=== PATIENT | female | born 1940 | race Caucasian/White ===

== ENCOUNTER → 2017-06-20 | Outpatient (CLI) | payer MEDICARE, OTHER ==
--- NOTE | 2017-06-20 13:22 | RADIOLOGY REPORT (SQ) ---
EXAM DESCRIPTION: VENOUS BILATERAL LOWER COMPLETED DATE/TIME: 06/20/2017 11:57 am REASON FOR STUDY: BLE PAIN, SWELLING R60.0 LOCALIZED EDEMA COMPARISON: None. TECHNIQUE: Dynamic and static snell scale and color images acquired of both lower extremity venous sy stems. Selected spectral images acquired with additional compression and augmentation maneuvers. Imag es stored on PACS. LIMITATIONS: None. FINDINGS: RIGHT LEG COMMON FEMORAL AND FEMORAL: Normal phasicity, compression and augmentation. No visualized echogenic m aterial on snell scale. No defects on color images. POPLITEAL: Normal compression and augmentation. No visualized echogenic material on snell scale. No de fects on color images. CALF VESSELS: Normal compression and augmentation. No visualized echogenic material on snell scale. No defects on color image. GSV AND SSV: Normal compression. No visualized echogenic material on snell scale. No defects on color images. ANY DEEP VENOUS INSUFFICIENCY: Not evaluated. ANY EVIDENCE OF POPLITEAL CYST: No. OTHER: No other significant finding. LEFT LEG COMMON FEMORAL AND FEMORAL: Normal phasicity, compression and augmentation. No visualized echogenic m aterial on snell scale. No defects on color images. POPLITEAL: Normal compression and augmentation. No visualized echogenic material on snell scale. No de fects on color images. CALF VESSELS: Normal compression and augmentation. No visualized echogenic material on snell scale. No defects on color images. GSV : Normal compression. No visualized echogenic material on snell scale. No defects on color images. LSV: The lesser saphenous vein in the left calf vein is noncompressible, with mixed echogenicity mat erial in the lumen from thrombus. There is mild edema in the left ankle soft tissues. ANY DEEP VENOUS INSUFFICIENCY: Not evaluated. ANY EVIDENCE POPLITEAL CYST: No. OTHER: No other significant finding. IMPRESSION: NO EVIDENCE DVT IN EITHER LEG. 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 Mild left ankle subcutaneous edema TECHNICAL DOCUMENTATION: JOB ID: [id number] [employer]- All Rights Reserved
== END ==
LOC: SP 11:09
PROVIDERS: ATTEND Family Medicine
DX: I82.812 Embolism and thrombosis of superficial veins of left lower extremity (principal)
CPT/HCPCS: 93970

== ENCOUNTER → 2017-08-05 | Outpatient (CLI) | payer MEDICARE, OTHER ==
--- NOTE | 2017-08-05 16:56 | RADIOLOGY REPORT (SQ) ---
EXAM DESCRIPTION: HAND LEFT 3 VIEWS COMPLETED DATE/TIME: 08/05/2017 4:45 pm REASON FOR STUDY: PAIN IN LEFT HAND M79.642 PAIN IN LEFT HAND COMPARISON: None. EXAM PARAMETERS: NUMBER OF VIEWS: Three views. TECHNIQUE: AP, lateral and oblique radiographic images acquired of the left hand. LIMITATIONS: None. FINDINGS: MINERALIZATION: Normal. BONES: No acute fracture or dislocation. No worrisome bone lesions. 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 SOFT TISSUES: Dorsal hand soft tissue swelling. No radiopaque foreign body or soft tissue gas. OTHER: No other significant finding. IMPRESSION: No acute fracture. TECHNICAL DOCUMENTATION: JOB ID: [id number] [employer]- All Rights Reserved
== END ==
LOC: OD 16:00
PROVIDERS: ATTEND Family Medicine
DX: M79.642 Pain in left hand (principal)

== ENCOUNTER 2017-08-30 15:40 | Emergency (ER) | payer MEDICARE, OTHER ==
[2017-08-30] MEDS ORDERED: ALBUTEROL SULFATE 0.083% NEB 2.5 MG/3 ML AMPUL NEB ONE (16:32)
[2017-08-30] MEDS ORDERED: METHYLPREDNISOLONE INJ 125 MG/2 ML SDV IM ONE (16:32)
[2017-08-30] MEDS ORDERED: IPRATROPIUM/ALBUTEROL 0.5-2.5 MG/3 ML AMPUL NEB ONE (16:32)
--- NOTE | 2017-08-30 16:40 | ER Document Report ---
ED Medical Screen (RME) - General Mode of Arrival: Wheelchair Information source: Patient TRAVEL OUTSIDE OF THE [place] IN LAST 30 DAYS: No <LONNY SMALL - Last Filed: 08/30/17 17:19> <LEELA JHA - Last Filed: 08/30/17 19:05> - General Chief Complaint: Shortness Of Breath Stated Complaint: DIFFICULTY BREATHING Time Seen by Provider: 08/30/17 16:25 Notes: Patient is a 76 year old male presenting to the emergency department complaining of a cough with yellow sputum and chest pain onset a week ago. Patient states that she has had some wheezing for 3 weeks. Patient denies fever. Patient currently takes Albuterol. (LONNY SMALL) - Related Data Allergies/Adverse Reactions: aspirin [Aspirin] Allergy (Verified 07/24/15 08:05) Penicillins Allergy (Verified 07/24/15 08:05) Hives Past Medical History - General Information source: Patient - Social History Chew tobacco use (# tins/day): No Frequency of alcohol use: None Drug Abuse: None - Past Medical History Cardiac Medical History: Reports: Hx Atrial Fibrillation Pulmonary Medical History: Reports: Hx Asthma Renal/ Medical History: Denies: Hx Peritoneal Dialysis <LONNY SMALL - Last Filed: 08/30/17 17:19> Review of Systems - Review of Systems Constitutional: No symptoms reported EENT: No symptoms reported Cardiovascular: See HPI, Chest pain Respiratory: See HPI, Cough, Sputum Gastrointestinal: No symptoms reported Genitourinary: No symptoms reported Female Genitourinary: No symptoms reported Musculoskeletal: No symptoms reported Skin: No symptoms reported Hematologic/Lymphatic: No symptoms reported Neurological/Psychological: No symptoms reported -: Yes All other systems reviewed and negative <LONNY SMALL - Last Filed: 08/30/17 17:19> Physical Exam - General General appearance: Appears well, Alert, Other - Patient forms 3-4 word sentences. - HEENT Head: Normocephalic, Atraumatic Pupils: PERRL - Respiratory Respiratory status: Other - Decreased air movements. Small amount of PEEP. Breath sounds: Wheezing - Expiratory - Cardiovascular Rhythm: Regular - Psychological Associated symptoms: Normal affect, Normal mood - Skin Skin Temperature: Warm Skin Moisture: Dry <LONNY SMALL - Last Filed: 08/30/17 17:19> - Respiratory Respiratory status: Other - Decreased air movements. Small amount of auto-PEEP <LEELA JHA - Last Filed: 08/30/17 19:05> - Vital signs Vitals: Temp Pulse Resp BP 98.3 F 81 18 140/53 H 08/30/17 15:48 08/30/17 15:48 08/30/17 15:48 08/30/17 15:48 Course - Laboratory Result Diagrams: 08/30/17 16:45 08/30/17 16:45 <LONNY SMALL - Last Filed: 08/30/17 17:19> - Laboratory Result Diagrams: 08/30/17 16:45 08/30/17 16:45 <LEELA JHA - Last Filed: 08/30/17 19:05> - Vital Signs Vital signs: Temp Pulse Resp BP Pulse Ox 98.3 F 81 18 140/53 H 100 08/30/17 15:48 08/30/17 15:48 08/30/17 15:48 08/30/17 15:48 08/30/17 18:19 - Laboratory Laboratory results interpreted by me: 08/30/17 08/30/17 16:45 16:45 Hgb 10.9 L Hct 33.3 L RDW 19.4 H Lymphocytes % (Manual) 3 L Monocytes % (Manual) 18 H Abs Lymphs (Manual) 0.4 L Abs Monocytes (Manual) 1.7 H Chloride 108 H Carbon Dioxide 21 L BUN 30 H Creatinine 1.39 H Est GFR ( Amer) 45 L Est GFR (Non-Af Amer) 37 L Glucose 249 H Creatine Kinase 157 H Total Protein 6.2 L Doctor's Discharge <LONNY SMALL - Last Filed: 08/30/17 17:19> <LEELA JHA - Last Filed: 08/30/17 19:05> - Discharge Referrals: GARY DAVID MD [Primary Care Provider] - Follow up as needed Scribe Documentation - Scribe Written by Scribe:: Belén Ennis, 08/30/2017 17:04 acting as scribe for :: Warren <LONNY SMALL - Last Filed: 08/30/17 17:19>
[2017-08-30 17:02] LABS: MEAN CORPUSCULAR HGB CONC 32.7 g/dL (32.0-36.0); WHITE BLOOD COUNT 9.6 10^3/uL (4.0-10.5)
[2017-08-30 17:09] LABS: HEMATOCRIT 33.3 % (36.0-47.0); HEMOGLOBIN 10.9 g/dL (12.0-15.5); HGB HCT DIFFERENCE -0.6; MEAN CORPUSCULAR HEMOGLOBIN 27.3 pg (27.0-33.4); MEAN CORPUSCULAR VOLUME 83 fl (80-97); RED BLOOD COUNT 3.99 10^6/uL (3.72-5.28); RED CELL DISTRIBUTION WIDTH 19.4 % (11.5-14.0)
[2017-08-30 17:15] LABS: ALANINE AMINOTRANSFERASE 29 U/L (9-52); ALBUMIN 3.9 g/dL (3.5-5.0); ALKALINE PHOSPHATASE 63 U/L (38-126); ANION GAP 15 (5-19); ASPARTATE AMINO TRANSFERASE 19 U/L (14-36); BILIRUBIN,DIRECT 0.3 mg/dL (0.0-0.4); BILIRUBIN,TOTAL 0.4 mg/dL (0.2-1.3); BLOOD UREA NITROGEN 30 mg/dL (7-20); CALCIUM 9.5 mg/dL (8.4-10.2); CARBON DIOXIDE 21 mmol/L (22-30); CHLORIDE 108 mmol/L (98-107); CREATINE KINASE 157 U/L (30-135); CREATININE RESULT 1.39 mg/dL (0.52-1.25); GLUCOSE 249 mg/dL (75-110); POTASSIUM 4.5 mmol/L (3.6-5.0); SODIUM 144.3 mmol/L (137-145); TOTAL PROTEIN 6.2 g/dL (6.3-8.2)
[2017-08-30 17:27] LABS: CREATINE KINASE MB 4.01 ng/mL (<4.55); TROPONIN I 0.022 ng/mL
[2017-08-30 17:33] LABS: BAND NEUTROPHILS % (MANUAL) 3 % (3-5); BASOPHILS % (MANUAL) 0 % (0-2); EOSINOPHILS % (MANUAL) 0 % (0-6); LYMPHOCYTES % (MANUAL) 3 % (13-45); TOTAL CELLS COUNTED 100
[2017-08-30 17:36] LABS: ANISOCYTOSIS 2+; OVALOCYTES 1+; POIKILOCYTOSIS 1+; POLYCHROMASIA SLIGHT; SCHISTOCYTES SLIGHT; TEAR DROP CELLS SLIGHT; TOXIC VACUOLATION PRESENT
--- NOTE | 2017-08-30 17:39 | RADIOLOGY REPORT (SQ) ---
EXAM DESCRIPTION: CHEST SINGLE VIEW COMPLETED DATE/TIME: 08/30/2017 5:03 pm REASON FOR STUDY: cough, wheeze, SOB COMPARISON: 07/24/2015 EXAM PARAMETERS: NUMBER OF VIEWS: One view. TECHNIQUE: Single frontal radiographic view of the chest acquired. RADIATION DOSE: NA LIMITATIONS: None. FINDINGS: LUNGS AND PLEURA: No opacities, masses or pneumothorax. No pleural effusion. MEDIASTINUM AND HILAR STRUCTURES: Hiatal hernia. HEART AND VASCULAR STRUCTURES: Heart normal in size. Normal vasculature. BONES: No acute findings. HARDWARE: None in the chest. OTHER: No other significant finding. IMPRESSION: Hiatal hernia with no acute cardiopulmonary disease. TECHNICAL DOCUMENTATION: JOB ID: [id number] [employer]- All Rights Reserved
--- NOTE | 2017-08-30 19:07 | ER Document Report ---
ED General - General Chief Complaint: Shortness Of Breath Stated Complaint: DIFFICULTY BREATHING Time Seen by Provider: 08/30/17 16:25 Mode of Arrival: Wheelchair Notes: Patient is a 76-year-old female with a past medical history of asthma who presents with 2-3 days of progressively worsening shortness of breath. Patient states she has been using her albuterol nebulizer at home with minimal improvement of her symptoms. Nothing seems to worsen her symptoms other than going outside in the cold air or exerting herself. She states this feels very similar to her prior asthma exacerbations. She does take prednisone 20 mg daily secondary to history of temporal arteritis. She has required hospitalization in the past for asthma but has never required intubation. She denies any fever, constitutional symptoms or chest pain. She has not seen a primary care doctor regarding today's concerns. TRAVEL OUTSIDE OF THE [place] IN LAST 30 DAYS: No - Related Data Allergies/Adverse Reactions: aspirin [Aspirin] Allergy (Verified 07/24/15 08:05) Penicillins Allergy (Verified 07/24/15 08:05) Hives Past Medical History - General Information source: Patient - Social History Smoking Status: Former Smoker Chew tobacco use (# tins/day): No Frequency of alcohol use: None Drug Abuse: None Lives with: Family Family History: Reviewed & Not Pertinent Patient has suicidal ideation: No Patient has homicidal ideation: No - Past Medical History Cardiac Medical History: Reports: Hx Atrial Fibrillation Pulmonary Medical History: Reports: Hx Asthma Renal/ Medical History: Denies: Hx Peritoneal Dialysis Review of Systems - Review of Systems Notes: Constitutional: Negative for fever. HENT: Negative for sore throat. Eyes: Negative for visual changes. Cardiovascular: Negative for chest pain. Respiratory: Positive for shortness of breath. Gastrointestinal: Negative for abdominal pain, vomiting or diarrhea. Genitourinary: Negative for dysuria. Musculoskeletal: Negative for back pain. Skin: Negative for rash. Neurological: Negative for headaches, weakness or numbness. 10 point ROS negative except as marked above and in HPI. Physical Exam - Vital signs Vitals: Temp Pulse Resp BP 98.3 F 81 18 140/53 H 08/30/17 15:48 08/30/17 15:48 08/30/17 15:48 08/30/17 15:48 Interpretation: Normal Notes: PHYSICAL EXAMINATION: GENERAL: Well-appearing, well-nourished and in no acute distress. HEAD: Atraumatic, normocephalic. EYES: Pupils equal round and reactive to light, extraocular movements intact, sclera anicteric, conjunctiva are normal. ENT: nares patent, oropharynx clear without exudates. Moist mucous membranes. NECK: Normal range of motion, supple without lymphadenopathy LUNGS: Breath sounds clear to auscultation bilaterally and equal. Mild end expiratory wheezing in all lung pereyra HEART: Regular rate and rhythm without murmurs ABDOMEN: Soft, nontender, normoactive bowel sounds. No guarding, no rebound. No masses appreciated. EXTREMITIES: Normal range of motion, no pitting or edema. No cyanosis. NEUROLOGICAL: No focal neurological deficits. Moves all extremities spontaneously and on command. PSYCH: Normal mood, normal affect. SKIN: Warm, Dry, normal turgor, no rashes or lesions noted. Course - Re-evaluation Re-evalutation: 08/30/17 19:04 Patient presents with a mild exacerbation of their baseline asthma. Mild wheezing at time of presentation but vitals do not show significant hypoxemia or tachypnea. No retractions. Patient did clinically improve after receiving nebulizers here in the emergency department. Chest x-ray without evidence of an acute pneumonia. Patient able to ambulate without any respiratory distress. Based on patient's overall reassuring assessment, I believe they are stable for outpatient management with steroids. Will also start patient on cetirizine and Qvar. I do not suspect an acute alternative pathology at this time based on history and exam including acute pulmonary embolus, ACS, pneumothorax, or aortic dissection. At this time will discharge with return precautions and follow-up recommendations. Verbal discharge instructions given a the bedside and opportunity for questions given. Medication warnings reviewed. Patient is in agreement with this plan and has verbalized understanding of return precautions and the need for primary care follow-up in the next 24-72 hours. - Vital Signs Vital signs: Temp Pulse Resp BP Pulse Ox 98.3 F 81 10 L 148/52 H 99 08/30/17 15:48 08/30/17 15:48 08/30/17 19:01 08/30/17 19:00 08/30/17 19:01 - Laboratory Result Diagrams: 08/30/17 16:45 08/30/17 16:45 Laboratory results interpreted by me: 08/30/17 08/30/17 16:45 16:45 Hgb 10.9 L Hct 33.3 L RDW 19.4 H Lymphocytes % (Manual) 3 L Monocytes % (Manual) 18 H Abs Lymphs (Manual) 0.4 L Abs Monocytes (Manual) 1.7 H Chloride 108 H Carbon Dioxide 21 L BUN 30 H Creatinine 1.39 H Est GFR ( Amer) 45 L Est GFR (Non-Af Amer) 37 L Glucose 249 H Creatine Kinase 157 H Total Protein 6.2 L - Diagnostic Test Radiology reviewed: Image reviewed, Reports reviewed Radiology results interpreted by me: 08/30/17 19:07 Chest x-ray: No acute infiltrate or pneumothorax - EKG Interpretation by Me Additional EKG results interpreted by me: 08/30/17 19:07 Normal sinus rhythm. Rate 70. No ST elevations or depressions. QTC is 419. Discharge - Discharge Clinical Impression: Asthma exacerbation Qualifiers: Asthma severity: moderate Asthma persistence: persistent Qualified Code(s): J45.41 - Moderate persistent asthma with (acute) exacerbation Condition: Good Disposition: HOME, SELF-CARE Additional Instructions: You were seen for an asthma exacerbation. Your symptoms improved with treatment here in the emergency department. However, it is very important that you return to the emergency department immediately if you began to have worsening difficulty breathing that does not respond to your normal home nebulizers. You are also being sent home on a five-day course of steroids that you should start taking tomorrow. Please also begin taking cetirizine 10 mg nightly as well as Qvar which was prescribed daily. Please also follow closely with your primary care physician. you should also return to emergency department if you develop fever greater than 101, persistent cough, persistent vomiting, pass out, or any other symptoms that are concerning to you. Prescriptions: Beclomethasone Dipropionate [Qvar] 8.7 gm IH DAILY #1 aer.w.adap Prednisone [Deltasone 20 mg Tablet] 2 tab PO DAILY 5 Days tablet Referrals: GARY DAVID MD [Primary Care Provider] - Follow up as needed DANY IYER MD [ACTIVE STAFF] - Follow up in 1 week
[2017-08-30 19:21] VITALS: BP 148/52
--- NOTE | 2017-08-30 22:42 | EKG REPORT ---
SEVERITY:- NORMAL ECG - SINUS RHYTHM : Confirmed by: Juan Todd 30-Aug-2017 22:41:41
== END 2017-08-30 19:26 | disposition home or self-care (01) ==
LOC: ER 15:40
DX: J45.41 Moderate persistent asthma with (acute) exacerbation (principal); R06.02 Shortness of breath; Z79.899 Other long term (current) drug therapy; Z87.891 Personal history of nicotine dependence
CPT/HCPCS: 93005; 94640 ×2; 99285; 96372; 36415; 82553; 82550; 85025; 80053; 84484; 83880; 71010; 93010; J2930; A9270 ×2; J7620

== ENCOUNTER → 2017-11-11 | Outpatient (CLI) | payer MEDICARE, OTHER ==
--- NOTE | 2017-11-11 16:15 | RADIOLOGY REPORT (SQ) ---
EXAM DESCRIPTION: U/S RETROPERITON (RENAL/AORTA) COMPLETED DATE/TIME: 11/11/2017 3:04 pm REASON FOR STUDY: ABN RESULTS OF KIDNEY FUNCTION TEST R94.4 ABNORMAL RESULTS OF KIDNEY FUNCTION DENEEN DIES COMPARISON: None. TECHNIQUE: Dynamic and static grayscale images acquired of the kidneys and bladder and recorded on P ACS. Additional selected color Doppler and spectral images recorded. LIMITATIONS: None. FINDINGS: RIGHT KIDNEY: 9.5 cm 9 mm cyst. No solid or suspicious masses. No hydronephrosis. No calcifications. LEFT KIDNEY: 9.4 cm. Cortical thinning. No solid or suspicious masses. No hydronephrosis. No calcifications. BLADDER: No masses. OTHER FINDINGS: No other significant finding. IMPRESSION: Chronic medical renal disease. No hydronephrosis. TECHNICAL DOCUMENTATION: JOB ID: [id number] [employer]- All Rights Reserved
== END ==
LOC: RAD 14:09
PROVIDERS: ATTEND Physician Assistant
DX: R94.4 Abnormal results of kidney function studies (principal); N28.9 Disorder of kidney and ureter, unspecified
CPT/HCPCS: 76770

== ENCOUNTER → 2017-11-13 | Outpatient (CLI) | payer MEDICARE, OTHER ==
[2017-11-13 12:28] LABS: HEMATOCRIT 29.4 % (36.0-47.0); HEMOGLOBIN 9.6 g/dL (12.0-15.5); MEAN CORPUSCULAR HEMOGLOBIN 28.3 pg (27.0-33.4); MEAN CORPUSCULAR HGB CONC 32.8 g/dL (32.0-36.0); MEAN CORPUSCULAR VOLUME 87 fl (80-97); PLATELET COUNT 223 10^3/uL (150-450); RED CELL DISTRIBUTION WIDTH 19.2 % (11.5-14.0); WHITE BLOOD COUNT 8.3 10^3/uL (4.0-10.5)
[2017-11-13 13:23] LABS: ABSOLUTE MONOCYTES # (MANUAL) 0.2 10^3/uL (0.1-1.4); ABSOLUTE NEUTROPHILS# (MANUAL) 7.1 10^3/uL (1.7-8.2); BAND NEUTROPHILS % (MANUAL) 2 % (3-5); BASOPHILS % (MANUAL) 0 % (0-2); EOSINOPHILS % (MANUAL) 1 % (0-6); HYPOCHROMASIA 2+; LYMPHOCYTES % (MANUAL) 12 % (13-45); METAMYELOCYTES % (MANUAL) 3 % (0); MONOCYTES % (MANUAL) 2 % (3-13); MYELOCYTES % (MANUAL) 1 % (0); POLYCHROMASIA 1+; SEGMENTED NEUTROPHILS % (MAN) 79 % (42-78); TOTAL CELLS COUNTED 100
[2017-11-13 13:24] LABS: ANISOCYTOSIS 2+; OVALOCYTES 2+; PLATELET COMMENT ADEQUATE; POIKILOCYTOSIS 2+; TEAR DROP CELLS SLIGHT; TOXIC GRANULATION SLIGHT
[2017-11-14 12:53] LABS: PATH REVIEW PATHOLOGIST REVIEWED
[2017-11-14 16:39] LABS: CYTOPLASMIC (C-ANCA) <1:20 titer (Neg:<1:20)
[2017-11-15 09:39] LABS: ANTICHROMATIN AB <0.2 AI (0.0-0.9); CENTROMERE B AB <0.2 AI (0.0-0.9); JO-1 ANTIBODY (ANACOMP) <0.2 AI (0.0-0.9); RNP AB <0.2 AI (0.0-0.9); SCLERODERMA-70 ANTIBODIES <0.2 AI (0.0-0.9); SJOGREN'S ANTI-SS-B AB <0.2 AI (0.0-0.9); SJOGREN'S SS-A ANTIBODY <0.2 AI (0.0-0.9); SMITH AB ANA <0.2 AI (0.0-0.9)
[2017-11-15 12:06] LABS: ATYPICAL PANCA <1:20 titer (Neg:<1:20); PERINUCLEAR (P-ANCA) <1:20 titer (Neg:<1:20)
[2017-11-15 12:07] LABS: DNA DOUBLE STRAND ANTIBODY ANA <1 IU/mL (0-9)
[2017-11-16 19:37] LABS: ASPERGILLUS FLAVUS Negative (Neg:<1:1); ASPERGILLUS FUMIGATUS Negative (Neg:<1:1)
[2017-11-17 10:45] LABS: ASPERGILLUS NIGER Negative (Neg:<1:1)
[2017-11-18 01:36] LABS: M001-IGE PENICILLIUM CHRYSOGEN <0.10 kU/L (Class 0); M002-IGE CLADOSPORIUM HERBARUM <0.10 kU/L (Class 0); M003-IGE ASPERGILLUS FUMIGATUS <0.10 kU/L (Class 0); M004-IGE MUCOR RACEMOSUS <0.10 kU/L (Class 0); M005-IGE CANDIDA ALBICANS <0.10 kU/L (Class 0); M006-IGE ALTERNARIA ALTERNATA <0.10 kU/L (Class 0); M009-IGE FUSARIUM PROLIFERATUM <0.10 kU/L (Class 0); M010-IGE STEMPHYLIUM HERBARUM <0.10 kU/L (Class 0); M012-IGE AUREOBASIDI PULLULANS <0.10 kU/L (Class 0); M013-IGE PHOMA BETAE <0.10 kU/L (Class 0); M014-IGE EPICOCCUM PURPURASCEN <0.10 kU/L (Class 0)
[2017-11-18 07:11] LABS: IMMUNOGLOBULIN E 5 IU/mL (0-100)
== END ==
LOC: OD 10:41
PROVIDERS: ATTEND Physician Assistant
DX: R06.00 Dyspnea, unspecified (principal)
CPT/HCPCS: 36415; 82785; 85025; 86003; 86021; 86225; 86235; 86430; 86606

== ENCOUNTER → 2017-11-22 | Outpatient (CLI) | payer MEDICARE, OTHER ==
--- NOTE | 2017-11-22 16:53 | RADIOLOGY REPORT (SQ) ---
EXAM DESCRIPTION: CT CHEST WITHOUT COMPLETED DATE/TIME: 11/22/2017 3:57 pm REASON FOR STUDY: DYSPNEA R06.00 DYSPNEA, UNSPECIFIED COMPARISON: CT angio chest 07/24/2015 TECHNIQUE: CT scan performed of the chest without intravenous contrast. Images reviewed with lung, soft tissue and bone windows. Reconstructed coronal and sagittal MPR images reviewed. All images st ored on PACS. All CT scanners at this facility use dose modulation, iterative reconstruction, and/or weight based d osing when appropriate to reduce radiation dose to as low as reasonably achievable (ALARA). [facility]: Dose Right [facility]: CareDose [facility]: Dose Right [facility]: Teradose 4D [facility]: Smart [employer] RADIATION DOSE: CT Rad equipment meets quality standard of care and radiation dose reduction techniq ues were employed. CTDIvol: 10.5 mGy. DLP: 350 mGy-cm. mGy. LIMITATIONS: No technical limitations. FINDINGS: LUNGS AND PLEURA: There is chronic appearing volume loss consolidation and bronchiectasis in the right lower lobe on axial images 55-69. Along the superior margin of this bandlike consolidat ion and bronchiectasis, a more nodular appearing area is present, 2 cm in diameter on coronal image 6 8 and axial image 55. This could represent round atelectasis. Right lung nodule could not entirely be excluded. Consider PET-CT for further evaluation these findings. Remainder of the lungs are well inflated and clear. No pleural effusions. No pneumothorax. HILAR AND MEDIASTINAL STRUCTURES: No identified masses or abnormal nodes. No obvious aneurysm. Larg e retrocardiac hiatal hernia containing the stomach fundus HEART AND VASCULAR STRUCTURES: Heavily calcified mitral annulus. Calcified aortic valve. UPPER ABDOMEN: Stable 1.8 cm cysts along the ventral aspect of the pancreatic body. THYROID AND OTHER SOFT TISSUES: No masses. No adenopathy. BONES: Diffuse thoracic multilevel degenerative disc changes with T6 50% compression deformity bony s clerosis, chronic in appearance. HARDWARE: None in the chest. OTHER: No other significant findings. IMPRESSION: Chronic appearing bandlike volume loss and bronchiectasis in the right lower lobe. Eitan g the superior margin of this bandlike scarring, a more nodular appearing 2 cm area is present which could be round atelectasis or primary lung nodule. Outpatient follow-up PET-CT recommended for community health er evaluation TECHNICAL DOCUMENTATION: JOB ID: [id number] Quality ID # [id number]: Final reports with documentation of one or more dose reduction techniques (e.g., Au tomated exposure control, adjustment of the mA and/or kV according to patient size, use of iterative reconstruction technique) 2010 [employer]- All Rights Reserved
== END ==
LOC: RAD 15:26
PROVIDERS: ATTEND Physician Assistant
DX: R06.00 Dyspnea, unspecified (principal)
CPT/HCPCS: 71250

== ENCOUNTER 2017-11-25 15:39 | Emergency (ER) | payer MEDICARE, OTHER ==
[2017-11-25] MEDS ORDERED: IPRATROPIUM/ALBUTEROL 0.5-2.5 MG/3 ML AMPUL NEB ONE ×3 (15:44→16:07)
[2017-11-25] MEDS ORDERED: METHYLPREDNISOLONE INJ 125 MG/2 ML SDV IV ONE (16:07)
[2017-11-25] MEDS ORDERED: MAGNESIUM SULFATE/D5W 1 GM/100 ML RTUPB IV SCH (16:15)
--- NOTE | 2017-11-25 16:16 | ER Document Report ---
ED Respiratory Problem - General Chief Complaint: Breathing Difficulty Stated Complaint: BREATHING PROBLEMS Time Seen by Provider: 11/25/17 15:45 Notes: The patient is a 77-year-old female, past medical history asthma, presents with 1 day of worsening wheezing and shortness of breath. Earlier today, she tried using her albuterol inhaler without much relief of her symptoms. Patient is on daily 20 mg of prednisone for temporal arteritis. Patient denies chest pain, leg swelling, hemoptysis, back pain, fevers or headache. TRAVEL OUTSIDE OF THE [place] IN LAST 30 DAYS: No - Related Data Allergies/Adverse Reactions: aspirin [Aspirin] Allergy (Verified 11/25/17 15:43) Penicillins Allergy (Verified 11/25/17 15:43) Hives Past Medical History - General Information source: Patient, Relative - Social History Smoking Status: Unknown if Ever Smoked Family History: Reviewed & Not Pertinent - Past Medical History Cardiac Medical History: Reports: Hx Atrial Fibrillation Pulmonary Medical History: Reports: Hx Asthma Renal/ Medical History: Denies: Hx Peritoneal Dialysis Review of Systems - Review of Systems Notes: REVIEW OF SYSTEMS: CONSTITUTIONAL: -fevers, -chills EENT: -eye pain, -difficulty swallowing, -nasal congestion CARDIOVASCULAR: -chest pain, -syncope. RESPIRATORY: +cough, +SOB GASTROINTESTINAL: -abdominal pain, -nausea, -vomiting, -diarrhea GENITOURINARY: -dysuria, -hematuria MUSCULOSKELETAL: -back pain, -neck pain SKIN: -rash or skin lesions. HEMATOLOGIC: -easy bruising or bleeding. LYMPHATIC: -swollen, enlarged glands. NEUROLOGICAL: -altered mental status or loss of consciousness, -headache, - neurologic symptoms PSYCHIATRIC: -anxiety, -depression. ALL OTHER SYSTEMS REVIEWED AND NEGATIVE. Physical Exam - Vital signs Vitals: Temp Pulse BP Pulse Ox 98.5 F 107 H 185/73 H 98 11/25/17 15:41 11/25/17 15:41 11/25/17 15:41 11/25/17 15:41 - Notes Notes: PHYSICAL EXAMINATION: GENERAL: Well-appearing, well-nourished and in no acute distress. HEAD: Atraumatic, normocephalic. EYES: Pupils equal round and reactive to light, extraocular movements intact, sclera anicteric, conjunctiva are normal. ENT: nares patent, oropharynx clear without exudates. Moist mucous membranes. NECK: Normal range of motion, supple without lymphadenopathy LUNGS: Tachypneic, diffuse wheezing HEART: Regular rate and rhythm without murmurs ABDOMEN: Soft, nontender, normoactive bowel sounds. No guarding, no rebound. No masses appreciated. EXTREMITIES: Normal range of motion, no pitting or edema. No cyanosis. NEUROLOGICAL: Cranial nerves grossly intact. Normal speech, normal gait. Normal sensory and motor exams. PSYCH: Normal mood, normal affect. SKIN: Warm, Dry, normal turgor, no rashes or lesions noted. Course - Re-evaluation Re-evalutation: Patient seen immediately on arrival. Given duonebs, steroids, magnesium and placed on BiPAP. Patient's x-ray and labs are unremarkable and did not show any evidence of pneumonia. After 3 duonebs, steroids and magnesium, her wheezing completely resolved and she feels much better. She is in no respiratory distress. Patient was transitioned off BiPAP and she did very well. No hypoxia and wheezing continued to be resolved. Offered patient admission, but she feels much better and would like to go home. She has Xopenex to take at home. 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 Given very strict return precautions and she understands. - Vital Signs Vital signs: Temp Pulse Resp BP Pulse Ox 98.5 F 107 H 10 L 144/66 H 98 11/25/17 15:41 11/25/17 15:41 11/25/17 18:01 11/25/17 18:01 11/25/17 18:01 - Laboratory Result Diagrams: 11/25/17 16:30 11/25/17 16:30 Laboratory results interpreted by me: 11/25/17 11/25/17 16:30 16:30 RBC 3.26 L Hgb 9.2 L Hct 28.5 L RDW 18.2 H Metamyelocytes % 1 H Chloride 108 H BUN 49 H Creatinine 1.44 H Est GFR ( Amer) 43 L Est GFR (Non-Af Amer) 35 L Glucose 193 H - Diagnostic Test Radiology reviewed: Image reviewed, Reports reviewed Radiology results interpreted by me: CXR: NAD Discharge - Discharge Clinical Impression: Asthma exacerbation Qualifiers: Asthma severity: unspecified severity Asthma persistence: intermittent Qualified Code(s): J45.21 - Mild intermittent asthma with (acute) exacerbation Condition: Stable Disposition: HOME, SELF-CARE Additional Instructions: ASTHMA: You have been diagnosed as having asthma. This is a condition where there is episodic tightness in the bronchial tubes. Allergies, infections, and polluted or cold air may be contributing factors. Emergency treatment of a severe asthma attack may include adrenaline shots , or bronchodilator aerosol. You may feel lightheaded, have a decreased exercise tolerance and a rapid pulse for an hour or two. Rest and get plenty of fluids. Home treatment of asthma requires bronchodilator drugs. These can be administered by injection, inhalation, or by mouth. Antibiotics and corticosteroids may be required for some patients. You should avoid chemical fumes, dusts, pollens, and exercising in very cold or dry air. If you smoke, stop!! If you develop a fever, increased wheezing, chest pain, or severe shortness of breath, you should contact the doctor immediately. STEROID MEDICATION: You have been given an injection of or oral medicine of the cortisone/ steroid class. This medication is used to control inflammation or allergy. Singh t is usually only given for a short period of time, until the acute process subsides. There are usually no side effects from short-term use of cortisone-like medications. Some persons feel an increased sense of well-being and are not sleepy at bedtime. Long-term use of cortisone medications is best avoided, unless required for a severe condition. If your condition does not remit, or relapses after the course of corticosteroid medication, you should consult your physician. INHALED BRONCHODILATORS: You have received treatment(s) of and/or prescription for an inhaled bronchodilator -- a medication which stimulates the airways in the lung to dilate. This improves the flow of air in asthma, bronchitis, and emphysema. These medicines have some similarity to adrenaline, and can cause similar side effects: shakiness, racing heart, and a sense of nervousness. These side effects decrease with time. Contact your doctor if these side effects are severe. Do not over-use the medicine. Too-frequent use of the inhaler may make it ineffective. Call your doctor if the inhaler is not controlling your symptoms at the prescribed doses. SMOKING: If you smoke, you should stop smoking. The tar and chemicals in cigarette smoke are harmful. Smoking has been shown to cause: emphysema chronic bronchitis lung cancer mouth and throat cancer stomach and pancreas cancer premature aging defects In addition, smoking increases ear and lung infections in children of smokers. USE OF ACETAMINOPHEN: Acetaminophen may be taken for pain relief or fever control. It's much safer than aspirin, offering a wider range of "safe" dosages. It is safe during . Some brand names are Tylenol, Panadol, Datril, Anacin 3, Tempra, and Liquiprin. Acetaminophen can be repeated every four hours. The following are maximum recommended dosages: USE OF ACETAMINOPHEN (Tylenol): Acetaminophen may be taken for pain relief or fever control. It's much safer than aspirin, offering a wider range of "safe" dosages. It is safe during . Some brand names are Tylenol, Panadol, Datril, Anacin 3, Tempra, and Liquiprin. Acetaminophen can be repeated every four hours. The following are maximum recommended dosages: WEIGHT Dose Drops Elixir Chewable( 80mg) (LBS.) drprs=droppers tsp=teaspoon 6 40 mg 0.4 ml (1/2) 6-11 80 mg 0.8 ml (full) tsp 1 tab 12-16 120 mg 1 1/2 drprs 3/4 tsp 1 1/2 tabs 17-23 160 mg 2 drprs 1 tsp 2 tabs 24-30 240 mg 3 drprs 1 1/2 tsp 3 tabs 30-35 320 mg 2 tsp 4 tabs 36-41 360 mg 2 1/4 tsp 4 1/2 tabs 42-47 400 mg 2 1/2 tsp 5 tabs 48-53 480 mg 3 tsp 6 tabs 54-59 520 mg 3 1/4 tsp 6 1/2 tabs 60-64 560 mg 3 1/2 tsp 7 tabs 65-70 600 mg 3 3/4 tsp 7 1/2 tabs 71-76 640 mg 4 tsp 8 tabs 77-82 720 mg 4 1/2 tsp 9 tabs 83-88 800 mg 5 tsp 10 tabs >89 pounds or adults 650 mg to 900 mg Acetaminophen can be repeated every four hours. Maximum dose not to exceed 4000 mg a day. These maximum recommended dosages are slightly higher than the dosages written on the product container, but these dosages are very safe and below the toxic dosage for acetaminophen. FOLLOW-UP CARE: If you have been referred to a physician for follow-up care, call the physician s office for an appointment as you were instructed or within the next two days. If you experience worsening or a significant change in your symptoms, notify the physician immediately or return to the Emergency Department at any time for re-evaluation. Prescriptions: Prednisone [Deltasone 10 mg Tablet] 10 mg PO ASDIR PRN #21 tablet PRN Reason: Forms: Elevated Blood Pressure Referrals: KEILY CHRISTIANSON MD [Primary Care Provider] - Follow up as needed DANY IYER MD [ACTIVE STAFF] - Follow up as needed
[2017-11-25 16:51] LABS: HEMATOCRIT 28.5 % (36.0-47.0); HEMOGLOBIN 9.2 g/dL (12.0-15.5); MEAN CORPUSCULAR HEMOGLOBIN 28.2 pg (27.0-33.4); MEAN CORPUSCULAR HGB CONC 32.3 g/dL (32.0-36.0); MEAN CORPUSCULAR VOLUME 88 fl (80-97); PLATELET COUNT 215 10^3/uL (150-450); RED BLOOD COUNT 3.26 10^6/uL (3.72-5.28); RED CELL DISTRIBUTION WIDTH 18.2 % (11.5-14.0); WHITE BLOOD COUNT 8.2 10^3/uL (4.0-10.5)
[2017-11-25 17:03] LABS: ALANINE AMINOTRANSFERASE 29 U/L (9-52); ALBUMIN 3.9 g/dL (3.5-5.0); ALKALINE PHOSPHATASE 44 U/L (38-126); ANION GAP 11 (5-19); ASPARTATE AMINO TRANSFERASE 27 U/L (14-36); BILIRUBIN,DIRECT 0.3 mg/dL (0.0-0.4); BILIRUBIN,TOTAL 0.3 mg/dL (0.2-1.3); BLOOD UREA NITROGEN 49 mg/dL (7-20); CALCIUM 9.5 mg/dL (8.4-10.2); CARBON DIOXIDE 22 mmol/L (22-30); CHLORIDE 108 mmol/L (98-107); GLUCOSE 193 mg/dL (75-110); POTASSIUM 4.5 mmol/L (3.6-5.0); SODIUM 141.3 mmol/L (137-145); TOTAL PROTEIN 6.3 g/dL (6.3-8.2)
--- NOTE | 2017-11-25 17:08 | RADIOLOGY REPORT (SQ) ---
EXAM DESCRIPTION: CHEST SINGLE VIEW portable COMPLETED DATE/TIME: 11/25/2017 4:51 pm REASON FOR STUDY: sob COMPARISON: CT chest 11/22/2017 and chest x-ray 08/30/2017 the EXAM PARAMETERS: NUMBER OF VIEWS: One view. TECHNIQUE: Single frontal radiographic view of the chest acquired. Portable technique RADIATION DOSE: NA LIMITATIONS: Shallow inspiration FINDINGS: LUNGS AND PLEURA: Lungs appear generally clear, detail limited by shallow inspiration. Th e bronchiectatic and nodular change right lung base seen on recent CT not visualized on today's limit ed film. MEDIASTINUM AND HILAR STRUCTURES: Hiatus hernia HEART AND VASCULAR STRUCTURES: Heart accentuated by technique. No overt CHF. BONES: No acute findings. HARDWARE: None in the chest. OTHER: No other significant finding. IMPRESSION: Limited filming. Nothing acute. Stable hiatus hernia. COMMENT: See prior CT chest 11/22/2017 TECHNICAL DOCUMENTATION: JOB ID: [id number] [employer]- All Rights Reserved
[2017-11-25 17:15] LABS: TROPONIN I 0.014 ng/mL
[2017-11-25 17:27] LABS: ABSOLUTE LYMPHOCYTES# (MANUAL) 2.6 10^3/uL (0.5-4.7); ABSOLUTE MONOCYTES # (MANUAL) 0.2 10^3/uL (0.1-1.4); ABSOLUTE NEUTROPHILS# (MANUAL) 5.3 10^3/uL (1.7-8.2); ANISOCYTOSIS 1+; BASOPHILS % (MANUAL) 0 % (0-2); EOSINOPHILS % (MANUAL) 0 % (0-6); LYMPHOCYTES % (MANUAL) 32 % (13-45); METAMYELOCYTES % (MANUAL) 1 % (0); MONOCYTES % (MANUAL) 3 % (3-13); PLATELET CLUMPS PRESENT; PLATELET COMMENT ADEQUATE; PLATELET GIANT PRESENT; PLATELET LARGE PRESENT; SEGMENTED NEUTROPHILS % (MAN) 64 % (42-78); TOTAL CELLS COUNTED 100
[2017-11-25 18:55] VITALS: BP 144/66
--- NOTE | 2017-11-26 09:26 | EKG REPORT ---
SEVERITY:- BORDERLINE ECG - SINUS RHYTHM PROBABLE LEFT ATRIAL ABNORMALITY : Confirmed by: Juan Todd 26-Nov-2017 09:26:31
== END 2017-11-25 18:55 | disposition home or self-care (01) ==
LOC: ER 15:39
DX: J45.21 Mild intermittent asthma with (acute) exacerbation (principal); R06.02 Shortness of breath; Z79.899 Other long term (current) drug therapy
CPT/HCPCS: 93005; 94640 ×2; 99285; 96374; 36415; 85025; 80053; 84484; 83880; 71045; 93010; 94660; J2930; J3475; A9270; J7620

== ENCOUNTER 2017-11-28 12:56 | Inpatient (IN) | payer MEDICARE, OTHER ==
[2017-11-28] MEDS ORDERED: MAGNESIUM SULFATE/D5W 1 GM/100 ML RTUPB IV ONE (13:09)
[2017-11-28] MEDS ORDERED: IPRATROPIUM/ALBUTEROL 0.5-2.5 MG/3 ML AMPUL NEB ONE ×2 (13:09)
[2017-11-28] MEDS ORDERED: NORMAL SALINE 1000 ML 1,000 ML IV ONE (13:09)
[2017-11-28] MEDS ORDERED: METHYLPREDNISOLONE INJ 125 MG/2 ML SDV IV ONE (13:09)
[2017-11-28] MEDS ORDERED: DIPHENHYDRAMINE HCL 50 MG/ML VIAL IV ONE (13:27)
[2017-11-28] MEDS ORDERED: FAMOTIDINE INJ/PF 20 MG/2 ML SDV IV ONE (13:27)
[2017-11-28] MEDS ORDERED: ALBUTEROL SULFATE 0.083% NEB 2.5 MG/3 ML AMPUL NEB ONE (13:31)
--- NOTE | 2017-11-28 13:57 | RADIOLOGY REPORT (SQ) ---
Exam Description CHEST SINGLE VIEW Completed Date/time 11/28/2017 1:49 PM Reason For Study sob Comparison [id number]. Exam Parameters Number of views: One view TECHNIQUE: Digital Frontal radiographic views of the chest acquired. Limitations: (None). Findings LUNGS AND PLEURA: . New opacity at the right base. Left lung is clear. MEDIASTINUM AND HILAR STRUCTURES: No masses or contour abnormalities. HEART AND VASCULAR STRUCTURES: Heart size is normal. No evidence for failure. (Normal appearing aorta for age.) . BONES: No acute findings. HARDWARE: None. Impression Right lower lobe pneumonia. Technical Documentation 2010 [employer]- All Rights Reserved
[2017-11-28] MEDS ORDERED: DILTIAZEM HCL INJ 25 MG/5 ML VIAL IV ONE ×2 (14:13→14:40)
[2017-11-28] MEDS ORDERED: DILTIAZEM HCL INJ 25 MG/5 ML VIAL ONE (14:13)
[2017-11-28] MEDS ORDERED: DILTIAZEM HCL/D5W 125 MG/125 ML RTUINJ IV ONE ×2 (14:14→22:34)
[2017-11-28] MEDS: DILTIAZEM HCL/D5W 125 MG/125 ML RTUINJ IV PRN ×2 (14:15→22:58)
[2017-11-28 14:24] LABS: HEMATOCRIT 31.5 % (36.0-47.0); HEMOGLOBIN 10.3 g/dL (12.0-15.5); MEAN CORPUSCULAR HEMOGLOBIN 28.2 pg (27.0-33.4); MEAN CORPUSCULAR HGB CONC 32.8 g/dL (32.0-36.0); MEAN CORPUSCULAR VOLUME 86 fl (80-97); PLATELET COUNT 271 10^3/uL (150-450); RED BLOOD COUNT 3.66 10^6/uL (3.72-5.28); RED CELL DISTRIBUTION WIDTH 17.4 % (11.5-14.0)
[2017-11-28 14:27] LABS: INTERNATIONAL RATION (INR) 0.93; PROTHROMBIN TIME 13.1 SEC (11.4-15.4)
[2017-11-28 14:28] LABS: VENOUS BLOOD BASE EXCESS -0.4 mmol/L; VENOUS BLOOD HCO3 21.7 mmol/L (20-32); VENOUS BLOOD PCO2 27.7 mmHg (35-63); VENOUS BLOOD PH 7.51 (7.30-7.42)
[2017-11-28] MEDS ORDERED: LEVOFLOXACIN 500 MG/D5W RTU 500 MG/100 ML RTUPB IV ONE (14:29)
[2017-11-28 14:35] LABS: ALANINE AMINOTRANSFERASE 37 U/L (9-52); ALKALINE PHOSPHATASE 43 U/L (38-126); ANION GAP 14 (5-19); ASPARTATE AMINO TRANSFERASE 32 U/L (14-36); BILIRUBIN,DIRECT 0.5 mg/dL (0.0-0.4); BILIRUBIN,TOTAL 0.5 mg/dL (0.2-1.3); BLOOD UREA NITROGEN 61 mg/dL (7-20); CALCIUM 10.1 mg/dL (8.4-10.2); CARBON DIOXIDE 22 mmol/L (22-30); CHLORIDE 107 mmol/L (98-107); CREATINE KINASE 123 U/L (30-135); GLUCOSE 149 mg/dL (75-110); LIPASE 416.6 U/L (23-300); PHOSPHORUS 3.3 mg/dL (2.5-4.5); POTASSIUM 4.5 mmol/L (3.6-5.0); SODIUM 143.4 mmol/L (137-145); TOTAL PROTEIN 6.7 g/dL (6.3-8.2)
--- NOTE | 2017-11-28 14:38 | ER Document Report ---
ED General - General Chief Complaint: Respiratory Distress Stated Complaint: SHORTNESS OF BREATH Time Seen by Provider: 11/28/17 13:08 TRAVEL OUTSIDE OF THE [place] IN LAST 30 DAYS: No - HPI Patient complains to provider of: Respiratory distress Notes: Patient coming in today respiratory distress to his current part prior to arrival. Patient has a history of asthma and had a new inhaler patient states after taking the inhaler he started having difficulty breathing. Upon my evaluation no signs of hypoxia patient is definitely Looks to be struggling to breathe. States last few days cough with productive sputum no fevers no chills no nausea vomiting patient denies any chest pain abdominal pain at this time. - Related Data Allergies/Adverse Reactions: aspirin [Aspirin] Allergy (Verified 11/25/17 15:43) Penicillins Allergy (Verified 11/25/17 15:43) Hives Past Medical History - Social History Smoking Status: Never Smoker Frequency of alcohol use: None Drug Abuse: None Family History: Reviewed & Not Pertinent Patient has suicidal ideation: No Patient has homicidal ideation: No - Past Medical History Cardiac Medical History: Reports: Hx Atrial Fibrillation, Hx Hypercholesterolemia, Hx Hypertension Pulmonary Medical History: Reports: Hx Asthma, Hx Bronchitis, Hx Pneumonia Endocrine Medical History: Reports: Hx Diabetes Mellitus Type 2 Renal/ Medical History: Denies: Hx Peritoneal Dialysis GI Medical History: Reports: Hx Hiatal Hernia Past Surgical History: Reports: Hx Abdominal Surgery - colon resection, Hx Appendectomy Review of Systems - Review of Systems Constitutional: No symptoms reported EENT: No symptoms reported Cardiovascular: No symptoms reported Respiratory: Cough, Short of breath, Sputum, Wheezing Gastrointestinal: No symptoms reported Genitourinary: No symptoms reported Female Genitourinary: No symptoms reported Musculoskeletal: No symptoms reported Skin: No symptoms reported Hematologic/Lymphatic: No symptoms reported Neurological/Psychological: No symptoms reported -: Yes All other systems reviewed and negative Physical Exam - Vital signs Vitals: Temp Pulse Resp BP Pulse Ox 98.4 F 145 H 32 H 145/73 H 96 11/28/17 13:01 11/28/17 13:01 11/28/17 13:01 11/28/17 13:01 11/28/17 13:01 Interpretation: Normal - General General appearance: Appears well, Alert - HEENT Head: Normocephalic, Atraumatic, Other - Redness and swelling around the orbits. Eyes: Normal Conjunctiva: Other - Bilateral sub-conjunctiva hemorrhages Cornea: Normal Eyelashes: Normal Pupils: PERRL - Respiratory Respiratory status: Respiratory distress, Retractions, Tachypnea Chest status: Nontender Breath sounds: Rhonchi, Wheezing Chest palpation: Normal - Cardiovascular Rhythm: Regular Heart sounds: Normal auscultation Murmur: No - Abdominal Inspection: Normal Distension: No distension Bowel sounds: Normal Tenderness: Nontender Organomegaly: No organomegaly - Back Back: Normal, Nontender - Extremities General upper extremity: Normal inspection, Nontender, Normal color, Normal ROM , Normal temperature General lower extremity: Normal inspection, Nontender, Normal color, Normal ROM , Normal temperature, Normal weight bearing. No: Doyle's sign - Neurological Neuro grossly intact: Yes Cognition: Normal Orientation: AAOx4 [place] Coma Scale Eye Opening: Spontaneous [place] Coma Scale Verbal: Oriented [place] Coma Scale Motor: Obeys Commands [place] Coma Scale Total: 15 Speech: Normal Motor strength normal: LUE, RUE, LLE, RLE Sensory: Normal - Psychological Associated symptoms: Normal affect, Normal mood - Skin Skin Temperature: Warm Skin Moisture: Dry Skin Color: Normal Course - Re-evaluation Re-evalutation: 11/28/17 14:36 Patient chest x-ray shows right lower lobe pneumonia. Patient at the receiving breathing treatment stating feeling much better upon reevaluation notified by the nurse that her heart rate had increased to 150. Reexamined patient patient' s heart rate look to be SVT on the monitor bounce around between 150-170. Patient looks to be A. fib on the monitor. The review the patient's medical list patient is on [facility] states she has been compliant with this. I did order the patient a dose of Cardizem and Cardizem drip was states at this time to treat her underlying SVT A. fib. Patient feeling much better during the episodes of SVT or A. fib with RVR patient was complaining of significant shortness of breath. We will start the patient on Levaquin plan is to admit the patient for respiratory distress A. fib RVR. Because of the patient's initial complaints of shortness of breath after medication along with itching and Facial redness and swelling cannot rule out possibility of a allergic component. Will discuss this with PCP 11/28/17 14:52 - Vital Signs Vital signs: Temp Pulse Resp BP Pulse Ox 98.4 F 86 22 H 134/58 H 94 11/28/17 13:09 11/28/17 13:09 11/28/17 15:12 11/28/17 15:12 11/28/17 15:12 - Laboratory Result Diagrams: 11/28/17 13:15 11/28/17 13:15 Laboratory results interpreted by me: 11/28/17 11/28/17 11/28/17 13:15 13:15 13:15 RBC Hgb Hct RDW Seg Neuts % (Manual) Lymphocytes % (Manual) Monocytes % (Manual) Metamyelocytes % Myelocytes % Promyelocytes % VBG pH 7.51 H VBG pCO2 27.7 L BUN 61 H Creatinine 1.27 H Est GFR ( Amer) 49 L Est GFR (Non-Af Amer) 41 L Glucose 149 H Lactic Acid Direct Bilirubin 0.5 H NT-Pro-B Natriuret Pep 969 H Lipase 416.6 H Digoxin 11/28/17 11/28/17 11/28/17 13:15 13:15 13:15 RBC 3.66 L Hgb 10.3 L Hct 31.5 L RDW 17.4 H Seg Neuts % (Manual) 84 H Lymphocytes % (Manual) 11 L Monocytes % (Manual) 1 L Metamyelocytes % 2 H Myelocytes % 1 H Promyelocytes % 1 H VBG pH VBG pCO2 BUN Creatinine Est GFR ( Amer) Est GFR (Non-Af Amer) Glucose Lactic Acid 2.3 H Direct Bilirubin NT-Pro-B Natriuret Pep Lipase Digoxin 0.63 L Critical Care Note - Critical Care Note Total time excluding time spent on procedures (mins): 50 Comments: Multiple evaluations patient respiratory distress ongoing A. fib and SVT requiring bedside evaluation. Discharge - Discharge Clinical Impression: Respiratory distress, Atrial fibrillation with RVR Asthma exacerbation Qualifiers: Asthma severity: unspecified severity Asthma persistence: unspecified Qualified Code(s): J45.901 - Unspecified asthma with (acute) exacerbation Pneumonia Qualifiers: Pneumonia type: due to unspecified organism Laterality: right Lung location: lower lobe of lung Qualified Code(s): J18.1 - Lobar pneumonia, unspecified organism Condition: Good Disposition: ADMITTED INPATIENT Admitting Provider: Ar[facility] Unit Admitted: IMCU Referrals: KEILY CHRISTIANSON MD [Primary Care Provider] - Follow up as needed
[2017-11-28] MEDS ORDERED: DIGOXIN INJ 0.5 MG/2 ML AMPULE IV ONE (14:46)
[2017-11-28] MEDS ORDERED: ACETAMINOPHEN 325 MG TABLET PO ONE (14:46)
[2017-11-28 14:57] LABS: CREATINE KINASE MB 2.7 ng/mL (<4.55)
[2017-11-28 15:03] LABS: ABSOLUTE MONOCYTES # (MANUAL) 0.1 10^3/uL (0.1-1.4); ABSOLUTE NEUTROPHILS# (MANUAL) 7.9 10^3/uL (1.7-8.2); BASOPHILS % (MANUAL) 0 % (0-2); EOSINOPHILS % (MANUAL) 0 % (0-6); LYMPHOCYTES % (MANUAL) 11 % (13-45); METAMYELOCYTES % (MANUAL) 2 % (0); MONOCYTES % (MANUAL) 1 % (3-13); NUCLEATED RED BLOOD CELLS 1 /100 WBC (0); SEGMENTED NEUTROPHILS % (MAN) 84 % (42-78); TOTAL CELLS COUNTED 100
[2017-11-28 15:04] LABS: MYELOCYTES % (MANUAL) 1 % (0); PROMYELOCYTES % (MANUAL) 1 % (0)
[2017-11-28 15:07] LABS: TOXIC GRANULATION 1+; TOXIC VACUOLATION PRESENT; TROPONIN I 0.038 ng/mL
[2017-11-28 15:08] LABS: ANISOCYTOSIS 2+; HYPERSEGMENTED NEUTROPHILS PRESENT; HYPOCHROMASIA SLIGHT; OVALOCYTES SLIGHT; PLATELET COMMENT ADEQUATE; POIKILOCYTOSIS SLIGHT; POLYCHROMASIA 1+
[2017-11-28 17:37] LABS: CREATINE KINASE MB 2.02 ng/mL (<4.55); TROPONIN I 0.033 ng/mL
[2017-11-28] MEDS ORDERED: DEXTROSE 50%-WATER 25 GM/50 ML DISP.SYRIN IV PRN ×2 (17:39)
[2017-11-28] MEDS ORDERED: GLUCAGON,HUMAN RECOMB 1 MG INJ IM PRN (17:39)
[2017-11-28] MEDS ORDERED: DEXTROSE 40% GEL 15 GM TUBE PO PRN ×2 (17:39)
--- NOTE | 2017-11-28 17:41 | PDOC H&P ---
History of Present Illness Admission Date/PCP: 11/28/17 15:30 KEILY CHRISTIANSON MD Patient complains of: Shortness of the breath and possible allergic reactions History of Present Illness: JESSY PARKER is a 77 year old female Is a 77-year-old females with a significant history of the very persistent asthma history of the congestive heart failure history of the chronic anemia and multiple hospital admissions because of that above conditions and multiple other comorbidity currently see a Dr. Patino as outpatientAnd started on the pulmicort . where the new inhalers and the patient started developing some facial redness and complaining of more short of breath and came to the emergency departmentsWith the patient's pretty much from the right-sided lobe pneumonia and patients also wheezing and ER physicians given her DuoNeb respiratory treatment and patient underwent for the rapid A. fib and start on a Cardizem drips Patient is currently stable's with a heart rate is below 100 on Cardizem drips Patient's denied any chest pains and patient's breathing is also better Patient also have a chronic kidney disease but current creatinine is better Patient also see a Dr. Todd recently have echocardiogram done within normal EF with some mild diastolic dysfunctions Patient have a chronic anemia with endoscopy and colonoscopy done before patient 's [facility] was all stable Past Medical History Cardiac Medical History: Reports: Atrial Fibrillation, Congestive Heart Failure , Coronary Artery Disease, Hyperlipidema, Hypertension Pulmonary Medical History: Reports: Asthma, Bronchitis, Pneumonia Endocrine Medical History: Reports: Diabetes Mellitus Type 2 Renal/ Medical History: Reports: Chronic Kidney Disease GI Medical History: Reports: Gastroesophageal Reflux Disease, Hiatal Hernia Musculoskeltal Medical History: Reports: Arthritis Psychiatric Medical History: Reports: Depression Hematology: Reports: Anemia Past Surgical History Past Surgical History: Reports: Appendectomy Social History Lives with: Family Smoking Status: Never Smoker Frequency of Alcohol Use: None Hx Recreational Drug Use: No Hx Prescription Drug Abuse: No Family History Family History: Reviewed & Not Pertinent Parental Family History Reviewed: Yes Children Family History Reviewed: Yes Sibling(s) Family History Reviewed.: Yes Medication/Allergy Home Medications: Diltiazem HCl [Cartia Xt] 300 mg PO DAILY 11/28/17 Ferrous Sulfate [Feosol 325 mg Tablet] 325 mg PO DAILY 11/28/17 Furosemide [Lasix 40 mg Tablet] 40 mg PO QAM 11/28/17 Gabapentin [Neurontin] 800 mg PO Q8 11/28/17 Insulin Aspart Prot/Insuln Asp [Novolog Mix 70-30 Vial] 15 unit SQ QHS 11/28/17 Insulin Aspart Prot/Insuln Asp [Novolog Mix 70-30 Vial] 30 unit SQ DAILY Ipratropium/Albuterol Sulfate [Duoneb 3 ml Ampul] 3 ml NEB RTQ8HP PRN 11/28/17 Levalbuterol HCl [Xopenex Neb 0.63 mg/3 ml Ampul] 1 vial NEB Q8HP PRN 11/28/17 Omeprazole 20 mg PO BID 11/28/17 Prednisone [Deltasone 20 mg Tablet] 20 mg PO DAILY 11/28/17 Sulfamethoxazole/Trimethoprim [Bactrim 400-80 mg Tablet] 1 tab PO MOWEFR@1000 Allergies/Adverse Reactions: aspirin [Aspirin] Allergy (Verified 11/25/17 15:43) colchicine Allergy (Verified 11/28/17 15:56) iodine Allergy (Verified 11/28/17 15:56) Penicillins Allergy (Verified 11/25/17 15:43) Hives shellfish derived Allergy (Verified 11/28/17 15:56) Review of Systems Constitutional: PRESENT: fatigue, weakness. ABSENT: chills, fever(s), headache( s), weight gain, weight loss Eyes: ABSENT: visual disturbances Ears: ABSENT: hearing changes Cardiovascular: PRESENT: dyspnea on exertion. ABSENT: chest pain, edema, orthropnea, palpitations Respiratory: PRESENT: cough. ABSENT: hemoptysis Gastrointestinal: ABSENT: abdominal pain, constipation, diarrhea, hematemesis, hematochezia, nausea, vomiting Genitourinary: ABSENT: dysuria, hematuria Musculoskeletal: ABSENT: joint swelling Integumentary: ABSENT: rash, wounds Neurological: ABSENT: abnormal gait, abnormal speech, confusion, dizziness, focal weakness, syncope Psychiatric: ABSENT: anxiety, depression, homidical ideation, suicidal ideation Endocrine: ABSENT: cold intolerance, heat intolerance, menstrual abnormalities, polydipsia, polyuria Hematologic/Lymphatic: ABSENT: easy bleeding, easy bruising, lymphadenopathy Physical Exam Vital Signs: Temp Pulse Resp BP Pulse Ox 98.4 F 86 15 140/49 H 96 11/28/17 13:09 11/28/17 13:09 11/28/17 15:42 11/28/17 15:42 11/28/17 15:42 General appearance: PRESENT: no acute distress, well-developed, well-nourished Head exam: PRESENT: atraumatic, normocephalic Eye exam: PRESENT: conjunctiva pink, EOMI, PERRLA. ABSENT: scleral icterus Ear exam: PRESENT: normal external ear exam Mouth exam: PRESENT: moist, tongue midline Neck exam: PRESENT: full ROM. ABSENT: carotid bruit, JVD, lymphadenopathy, thyromegaly Respiratory exam: PRESENT: decreased breath sounds, wheezes Cardiovascular exam: PRESENT: irregular rhythm, +S1, +S2. ABSENT: diastolic murmur, rubs, systolic murmur Pulses: PRESENT: normal dorsalis pedis pul, +2 pedal pulses bilateral Vascular exam: PRESENT: normal capillary refill GI/Abdominal exam: PRESENT: normal bowel sounds, soft. ABSENT: distended, guarding, mass, organolmegaly, rebound, tenderness Rectal exam: PRESENT: deferred Extremities exam: ABSENT: pedal edema Neurological exam: PRESENT: alert, awake, oriented to person, oriented to place , oriented to time, oriented to situation, CN II-XII grossly intact. ABSENT: motor sensory deficit Psychiatric exam: PRESENT: appropriate affect, normal mood. ABSENT: homicidal ideation, suicidal ideation Skin exam: PRESENT: dry, intact, warm. ABSENT: cyanosis, rash Assessment & Plan - Diagnosis (1) Asthma exacerbation Qualifiers: Asthma severity: unspecified severity Asthma persistence: persistent Qualified Code(s): J45.901 - Unspecified asthma with (acute) exacerbation Is this a current diagnosis for this admission?: Yes Plan: Start the patient on Xopenex nebulizer increase the steroid (2) Respiratory distress Is this a current diagnosis for this admission?: Yes Plan: Due to the above conditions we will consult the pulmonary for the patient's have a significant history of the pulmonary disease and patient's already seen by Dr. Patino's last week (3) Atrial fibrillation with RVR Is this a current diagnosis for this admission?: Yes Plan: Start the patient on a Cardizem drips and consult Dr. Todd (4) Pneumonia Qualifiers: Pneumonia type: due to unspecified organism Laterality: right Lung location: lower lobe of lung Qualified Code(s): J18.1 - Lobar pneumonia, unspecified organism Is this a current diagnosis for this admission?: Yes Plan: Start the patient on IV Levaquin get the sputum culture (5) Congestive heart failure Qualifiers: Heart failure type: diastolic Heart failure chronicity: chronic Qualified Code(s): I50.32 - Chronic diastolic (congestive) heart failure Is this a current diagnosis for this admission?: Yes Plan: Continues to Lasix (6) Coronary artery disease Qualifiers: Coronary Disease-Associated Artery/Lesion type: unspecified vessel or lesion type Is this a current diagnosis for this admission?: Yes Plan: Currently all stable (7) Anemia Qualifiers: Anemia type: unspecified type Qualified Code(s): D64.9 - Anemia, unspecified Is this a current diagnosis for this admission?: Yes Plan: Currently all stable (8) Chronic kidney disease Qualifiers: Chronic kidney disease stage: stage 2 (mild) Qualified Code(s): N18.2 - Chronic kidney disease, stage 2 (mild) Is this a current diagnosis for this admission?: Yes Plan: Continues to monitor the patient (9) Osteoarthritis Qualifiers: Laterality: unspecified laterality Is this a current diagnosis for this admission?: Yes (10) Addisons disease Is this a current diagnosis for this admission?: Yes Plan: Will check the cortisol levels - Time Time Spent: 50 to 70 Minutes Medications reviewed and adjusted accordingly: Yes Anticipated discharge: Home Within: Other - Inpatient Certification Medical Necessity: Need Close Monitoring Due to Risk of Patient Decompensation, Need for IV Antibiotics Post Hospital Care: D/C Control Analyst Documentation - Plan Summary Plan Summary: Discussed with the patient and the family about the patient's current conditions we consult the pulmonary and cardiology for further evaluations
[2017-11-28] MEDS: INSULIN LISPRO 100 UNIT/ML 3 ML VIAL SUBCUT PRN ×2 (18:47→23:38)
[2017-11-28] MEDS: LEVALBUTEROL HCL NEB 0.63 MG/3 ML AMPUL NEB SCH ×2 (19:42→23:43)
--- NOTE | 2017-11-28 20:14 | PDOC CONSULTATION ---
Consultation Consult Date: 11/28/17 Attending physician:: KEILY CHRISTIANSON Consult reason:: Shortness of breath History of Present Illness Admission Date/PCP: 11/28/17 15:30 KEILY CHRISTIANSON MD Patient complains of: Shortness of breath History of Present Illness: JESSY PARKER is a 77 year old female with a significant history of the very persistent asthma, history of the congestive heart failure, history of the chronic anemia and multiple hospital admissions because of that above conditions and multiple other comorbidity currently see a Dr. Patino as outpatient and started on the pulmicort . With the new inhalers and the patient started developing some facial redness and complaining of more short of breath and came to the emergency departments. Patient was noted to have right- sided lobe pneumonia and wheezing. ER physicians given her DuoNeb respiratory treatment and patient underwent for the rapid A. fib and start on a Cardizem drips. Subsequently patient converted spontaneously to sinus rhythm. Patient however was noted to have extremely high ventricular rates. Patient claims that she has been compliant with home dose of Cardizem. Patient's denied any chest pains but continues to have shortness of breath Patient also have a chronic kidney disease but current creatinine is better Patient also see a Dr. Todd recently have echocardiogram done within normal EF with some mild diastolic dysfunctions. However patient tells me that this was sometimes in June and July. Since then patient has noted increased shortness of breath. Patient have a chronic anemia with endoscopy and colonoscopy done. It seems patient does not tolerate atrial fibrillation well and goes into respiratory distress. Patient also noted to be in CHF. This above history was reviewed, confirmed and supplemented. Past Medical History Cardiac Medical History: Reports: Atrial Fibrillation, Congestive Heart Failure , Coronary Artery Disease, Hyperlipidema, Hypertension Pulmonary Medical History: Reports: Asthma, Bronchitis, Pneumonia Endocrine Medical History: Reports: Diabetes Mellitus Type 2 Renal/ Medical History: Reports: Chronic Kidney Disease GI Medical History: Reports: Gastroesophageal Reflux Disease, Hiatal Hernia Musculoskeltal Medical History: Reports: Arthritis Psychiatric Medical History: Reports: Depression Hematology: Reports: Anemia Past Surgical History Past Surgical History: Reports: Appendectomy Social History Information Source: Patient Lives with: Family Smoking Status: Never Smoker Frequency of Alcohol Use: None Hx Recreational Drug Use: No Hx Prescription Drug Abuse: No - Advance Directive Resuscitation Status: Do Not Resuscitate Surrogate healthcare decision maker:: Patient's daughter is the surrogate decision-maker Family History Family History: Reviewed & Not Pertinent Parental Family History Reviewed: Yes Children Family History Reviewed: Yes Sibling(s) Family History Reviewed.: Yes Medication/Allergy Home Medications: Diltiazem HCl [Cartia Xt] 300 mg PO DAILY 11/28/17 Ferrous Sulfate [Feosol 325 mg Tablet] 325 mg PO DAILY 11/28/17 Furosemide [Lasix 40 mg Tablet] 40 mg PO QAM 11/28/17 Gabapentin [Neurontin] 800 mg PO Q8 11/28/17 Insulin Aspart Prot/Insuln Asp [Novolog Mix 70-30 Vial] 15 unit SQ QHS 11/28/17 Insulin Aspart Prot/Insuln Asp [Novolog Mix 70-30 Vial] 30 unit SQ DAILY Ipratropium/Albuterol Sulfate [Duoneb 3 ml Ampul] 3 ml NEB RTQ8HP PRN 11/28/17 Levalbuterol HCl [Xopenex Neb 0.63 mg/3 ml Ampul] 1 vial NEB Q8HP PRN 11/28/17 Omeprazole 20 mg PO BID 11/28/17 Prednisone [Deltasone 20 mg Tablet] 20 mg PO DAILY 11/28/17 Sulfamethoxazole/Trimethoprim [Bactrim 400-80 mg Tablet] 1 tab PO MOWEFR@1000 Allergies/Adverse Reactions: aspirin [Aspirin] Allergy (Verified 11/25/17 15:43) colchicine Allergy (Verified 11/28/17 15:56) iodine Allergy (Verified 11/28/17 15:56) Penicillins Allergy (Verified 11/25/17 15:43) Hives shellfish derived Allergy (Verified 11/28/17 15:56) Review of Systems Review of Systems: Please see history of present illness and past medical history as wall. Constitutional: No fever or chills reported. Patient's report increased fatigue and tiredness. She is on chronic oxygen therapy. Head : No recent chronic headaches, recent head injury. Eyes: No recent eye pain, diplopia, redness, discharge, acute visual changes. Ears: No recent chronic ear pain, acute hearing loss, ear discharge. Oral cavity: No recent ulcerations, bleeding, oral cavity discomfort. Neck: No recent acute neck pain reported. Hematologic: No recent easy bruising or bleeding or hematologic malignancy reported. Lymphatic: No recent lymphatic malignancy, chronic lymphadenopathy reported yet Cardiovascular system review: See history of present illness. Respiratory system review: No recent chronic cough, hemoptysis, blood clots in the lungs reported. Shortness of breath on exertion Gastrointestinal system review: Negative for any recent acute or chronic abdominal pain, hematemesis, melena, recent change in bowel habits. Genitourinary system review: No recent acute or chronic hematuria, flank pain, UTI etc. reported. Skin system review: Negative for any recent abnormal bruising, no rash, no pruritus reported. Neurologic: No prior history of strokes, mini strokes, seizure disorder. Psychologic: No history of major psychosis or major depression reported. Musculoskeletal: Minor aches and pains reported. No acute joint swelling reported. Endocrine: No recent polyuria, polydipsia, recent heat or cold intolerance. Physical Exam Vital Signs: Temp Pulse Resp BP Pulse Ox 98.3 F 67 18 137/40 H 2 L 11/28/17 19:02 11/28/17 19:42 11/28/17 19:42 11/28/17 19:02 11/28/17 19:42 Intake & Output 11/27/17 11/28/17 11/29/17 06:59 06:59 06:59 Weight 51.5 kg Exam: GENERAL: well-nourished and in no acute distress. Alert and oriented x3 HEAD: Atraumatic, normocephalic. EYES: Pupils equal round and reactive to light, extraocular movements intact, sclera anicteric, conjunctiva are normal. ENT: TMs normal, nares patent, oropharynx clear without exudates. Moist mucous membranes. No oral ulcerations or bleeding gums noted NECK: supple without lymphadenopathy. Trachea is central. No cervical or axillary lymphadenopathy noted. Carotids are 2+, JVD 10-12 cm LUNGS: Respiration seems nonlabored, no significant accessory muscle action noted. Bilateral wheezes rales or rhonchi noted. No significant dullness noted on percussion. CHEST: Palpation of the chest wall shows no significant chest wall tenderness. No other significant abnormalities noted. HEART: [place] PHILOSOPHY FACULTY, No PSH, 1/6 ROLY aortic area, 1/6 tran systolic murmur mitral area, no rubs, no gallops. ABDOMEN: Soft, no significant tenderness appreciated, normoactive bowel sounds. No guarding, no rebound. No rigidity noted . No masses appreciated. EXTREMITIES: Pedal pulses are 1-2+, no calf tenderness noted. No clubbing or cyanosis.trace to 1+ pedal edema noted NEUROLOGICAL: Focused neurological exam showed no significant neurologic deficit. Normal speech, no focal weakness appreciated. PSYCH: Normal mood, normal affect. Judgment and insight within normal limits. SKIN: No significant ecchymosis, rash, ulcerations or signs of pruritus noted. MUSCULOSKELETAL EXAM: No significant joint swelling noted. Results Laboratory Results: 11/28/17 16:29 TSH 0.08 L 11/28/17 11/28/17 16:29 16:29 Creatine Kinase 90 CK-MB (CK-2) 2.02 Troponin I 0.033 EKG Comments: Initial EKG shows A. fib with rapid ventricular response. Significant repolarization changes noted Assessment & Plan - Diagnosis (1) Atrial fibrillation with RVR Is this a current diagnosis for this admission?: Yes (2) Anemia Qualifiers: Anemia type: unspecified type Qualified Code(s): D64.9 - Anemia, unspecified Is this a current diagnosis for this admission?: Yes (3) Asthma exacerbation Qualifiers: Asthma severity: unspecified severity Asthma persistence: persistent Qualified Code(s): J45.901 - Unspecified asthma with (acute) exacerbation Is this a current diagnosis for this admission?: Yes (4) Chronic kidney disease Qualifiers: Chronic kidney disease stage: stage 2 (mild) Qualified Code(s): N18.2 - Chronic kidney disease, stage 2 (mild) Is this a current diagnosis for this admission?: Yes (5) Congestive heart failure Qualifiers: Heart failure type: diastolic Heart failure chronicity: chronic Qualified Code(s): I50.32 - Chronic diastolic (congestive) heart failure Is this a current diagnosis for this admission?: Yes (6) Coronary artery disease Qualifiers: Coronary Disease-Associated Artery/Lesion type: unspecified vessel or lesion type Is this a current diagnosis for this admission?: Yes - Notes Notes: Patient had A. fib with rapid ventricular response. It seems patient does not tolerate atrial fibrillation. Will start patient on Multaq therapy. Atrial fibrillation with rapid ventricular response: Currently patient in sinus rhythm. It seems patient goes into very rapid ventricular response when she reverts back to atrial fibrillation. Will start patient on MULTAQ while she is in the hospital. Because of her comorbid diagnosis, this is the only medication that can be safely used. Feel that risk benefits favor starting this at this point. Will discuss feasibility of chronic anticoagulation with primary care attending. CHF: Possibly related to atrial fibrillation. Multaq has been reported to reduce CHF related admission in patients with A. fib. Coronary artery disease: Agree with cycling cardiac enzymes. Currently patient is chest pain-free. She did have significant ST segment depression but is probably rate related. Chronic kidney disease: Currently stable patient being followed by supervisor industrial arts education. Asthma exacerbation: Continue with bronchodilator and steroid therapy as needed. Patient seems to have severe underlying COPD/asthma. Anemia: Currently stable try maintain hemoglobin above 8 g percent. - Time Time Spent: 30 to 50 Minutes - CODE STATUS was discussed, patient remains full code. Surrogate decision-maker patient's daughter. Multiple medical problems were addressed. More than 50% of the time spent coordinating care, discussing management plans with involved caregivers. Management plans discussed with involved personnels. Medical decision making was of moderate to high complexity , patient's has multiple comorbidities. Medications reviewed and adjusted accordingly: Yes
[2017-11-28] MEDS: DRONEDARONE HYDROCHLORIDE 400 MG TABLET PO SCH (21:02)
[2017-11-28] MEDS: GABAPENTIN 400 MG CAPSULE PO SCH (21:02)
[2017-11-28] MEDS: HEPARIN SOD (PORCINE) 5,000 UNIT/ML 1 ML SYRINGE SUBCUT SCH (21:02)
[2017-11-28] MEDS: METHYLPREDNISOLONE INJ 40 MG/1 ML SDV IV SCH (21:02)
[2017-11-28] MEDS ORDERED: INSULN ASP SQ SCH (22:00)
[2017-11-28] MEDS ORDERED: INSULIN ASPART PROT SQ SCH (22:00)
[2017-11-28 23:40] LABS: CREATINE KINASE MB 1.27 ng/mL (<4.55); TROPONIN I 0.022 ng/mL
[2017-11-29] MEDS: LEVALBUTEROL HCL NEB 0.63 MG/3 ML AMPUL NEB SCH ×5 (04:17→20:58)
[2017-11-29] MEDS: GABAPENTIN 400 MG CAPSULE PO SCH ×3 (05:24→22:13)
[2017-11-29] MEDS: METHYLPREDNISOLONE INJ 40 MG/1 ML SDV IV SCH ×3 (05:24→22:13)
[2017-11-29] MEDS: LANSOPRAZOLE 15 MG TAB.RAP.DR PO SCH ×2 (05:24→18:40)
[2017-11-29] MEDS: HEPARIN SOD (PORCINE) 5,000 UNIT/ML 1 ML SYRINGE SUBCUT SCH ×3 (05:24→22:13)
[2017-11-29 06:16] LABS: HEMATOCRIT 27.7 % (36.0-47.0); HEMOGLOBIN 9.2 g/dL (12.0-15.5); MEAN CORPUSCULAR HEMOGLOBIN 28.6 pg (27.0-33.4); MEAN CORPUSCULAR HGB CONC 33.3 g/dL (32.0-36.0); MEAN CORPUSCULAR VOLUME 86 fl (80-97); PLATELET COUNT 230 10^3/uL (150-450); RED BLOOD COUNT 3.22 10^6/uL (3.72-5.28); RED CELL DISTRIBUTION WIDTH 17.7 % (11.5-14.0); WHITE BLOOD COUNT 8.3 10^3/uL (4.0-10.5)
[2017-11-29 06:34] LABS: ANION GAP 13 (5-19); BLOOD UREA NITROGEN 57 mg/dL (7-20); CALCIUM 9.3 mg/dL (8.4-10.2); CARBON DIOXIDE 22 mmol/L (22-30); CHLORIDE 109 mmol/L (98-107); CREATINE KINASE 59 U/L (30-135); GLUCOSE 255 mg/dL (75-110); LIPASE 673.4 U/L (23-300); POTASSIUM 4.3 mmol/L (3.6-5.0); SODIUM 144.1 mmol/L (137-145)
[2017-11-29 06:39] LABS: CREATINE KINASE MB 1.01 ng/mL (<4.55); TROPONIN I 0.019 ng/mL
[2017-11-29 07:00] LABS: ABSOLUTE LYMPHOCYTES# (MANUAL) 0.4 10^3/uL (0.5-4.7); ABSOLUTE MONOCYTES # (MANUAL) 0.2 10^3/uL (0.1-1.4); ABSOLUTE NEUTROPHILS# (MANUAL) 7.6 10^3/uL (1.7-8.2); BAND NEUTROPHILS % (MANUAL) 1 % (3-5); BASOPHILS % (MANUAL) 0 % (0-2); EOSINOPHILS % (MANUAL) 0 % (0-6); LYMPHOCYTES % (MANUAL) 5 % (13-45); MONOCYTES % (MANUAL) 3 % (3-13); SEGMENTED NEUTROPHILS % (MAN) 88 % (42-78); TOTAL CELLS COUNTED 100
[2017-11-29 07:01] LABS: HYPERSEGMENTED NEUTROPHILS PRESENT
[2017-11-29 07:05] LABS: ANISOCYTOSIS SLIGHT; HYPOCHROMASIA SLIGHT; OVALOCYTES SLIGHT; PLATELET COMMENT DECREASED; POIKILOCYTOSIS SLIGHT; POLYCHROMASIA SLIGHT
[2017-11-29 07:07] LABS: MYELOCYTES % (MANUAL) 3 % (0)
[2017-11-29] MEDS: FUROSEMIDE 40 MG TABLET PO SCH (07:58)
[2017-11-29] MEDS: DILTIAZEM HCL 180 MG CAPSULE.CR PO SCH (09:44)
[2017-11-29] MEDS: SULFAMETHOXAZOLE/TRIMETHOPRIM 800-160 MG TABLET PO SCH (09:45)
[2017-11-29] MEDS: FERROUS SULFATE 325 MG TABLET PO SCH (09:46)
[2017-11-29] MEDS: LEVOFLOXACIN 500 MG/D5W RTU 500 MG/100 ML RTUPB IV SCH (09:46)
[2017-11-29] MEDS: DRONEDARONE HYDROCHLORIDE 400 MG TABLET PO SCH ×2 (09:47→22:13)
[2017-11-29] MEDS ORDERED: INSULN ASP SQ SCH (10:00)
[2017-11-29] MEDS ORDERED: SULFAMETHOXAZOLE PO SCH (10:00)
[2017-11-29] MEDS ORDERED: TRIMETHOPRIM PO SCH (10:00)
[2017-11-29] MEDS ORDERED: INSULIN ASPART PROT SQ SCH (10:00)
--- NOTE | 2017-11-29 10:56 | EKG REPORT ---
SEVERITY:- BORDERLINE ECG - SINUS RHYTHM BORDERLINE T WAVE ABNORMALITIES : Confirmed by: Juan Todd 29-Nov-2017 10:56:05
--- NOTE | 2017-11-29 10:57 | EKG REPORT ---
SEVERITY:- ABNORMAL ECG - A FIB WITH RVR REPOLARIZATION ABNORMALITY, PROB RATE RELATED : Confirmed by: Juan Todd 29-Nov-2017 10:56:35
--- NOTE | 2017-11-29 10:57 | EKG REPORT ---
SEVERITY:- ABNORMAL ECG - SINUS RHYTHM LEFT ATRIAL ABNORMALITY : Confirmed by: Juan Todd 29-Nov-2017 10:56:42
[2017-11-29] MEDS: ACETAMINOPHEN 325 MG TABLET PO PRN (11:20)
--- NOTE | 2017-11-29 11:20 | PDOC CONSULTATION ---
Consultation Consult Date: 11/29/17 Consult reason:: Acute on chronic kidney disease History of Present Illness Admission Date/PCP: 11/28/17 15:30 KEILY CHRISTIANSON MD History of Present Illness: JESSY PARKER is a 77 year old female with a significant history of long- standing diabetes mellitus, hypertension, atrial fibrillation, CKD stage III with a base creatinine of around 1.2, congestive heart failure, asthma, possible rheumatoid arthritis was admitted with progressive history of worsening shortness of breath on exertion and then at rest. Evaluations in the ER revealed that the patient had a pneumonia along with congestive heart failure and rapid A. fib. She has been admitted and put on IV diuretics along with IV diltiazem and IV antibiotics. Currently she is in sinus rhythm. Presently the patient feels somewhat better and is agreed upon by her daughter also who is at the bedside. Patient apparently follows with Dr. Todd for heart issues. She is also got chronic anemia likely of chronic disease and apparently has had a GI workup which was negative. Past Medical History Cardiac Medical History: Reports: Atrial Fibrillation, Coronary Artery Disease, Hyperlipidemia, Hypertension-primary Pulmonary Medical History: Reports: Asthma, Bronchitis, Pneumonia Endocrine Medical History: Reports: Diabetes Mellitus Type 2 Renal/ Medical History: Reports: Chronic Kidney Disease Stage III GI Medical History: Reports: Gastroesophageal Reflux Disease, Hiatal Hernia Musculoskeltal Medical History: Reports: Arthritis Psychiatric Medical History: Reports: Depression Past Surgical History Past Surgical History: Reports: Appendectomy Social History Lives with: Family Smoking Status: Never Smoker Frequency of Alcohol Use: None Hx Recreational Drug Use: No Hx Prescription Drug Abuse: No - Advance Directive Resuscitation Status: Do Not Resuscitate Family History Parental Family History Reviewed: No Children Family History Reviewed: No Sibling(s) Family History Reviewed.: No Medication/Allergy Home Medications: Diltiazem HCl [Cartia Xt] 300 mg PO DAILY 11/28/17 Ferrous Sulfate [Feosol 325 mg Tablet] 325 mg PO DAILY 11/28/17 Furosemide [Lasix 40 mg Tablet] 40 mg PO QAM 11/28/17 Gabapentin [Neurontin] 800 mg PO Q8 11/28/17 Insulin Aspart Prot/Insuln Asp [Novolog Mix 70-30 Vial] 15 unit SQ QHS 11/28/17 Insulin Aspart Prot/Insuln Asp [Novolog Mix 70-30 Vial] 30 unit SQ DAILY Ipratropium/Albuterol Sulfate [Duoneb 3 ml Ampul] 3 ml NEB [id number] PRN 11/28/17 Levalbuterol HCl [Xopenex Neb 0.63 mg/3 ml Ampul] 1 vial NEB Q8HP PRN 11/28/17 Omeprazole 20 mg PO BID 11/28/17 Prednisone [Deltasone 20 mg Tablet] 20 mg PO DAILY 11/28/17 Sulfamethoxazole/Trimethoprim [Bactrim 400-80 mg Tablet] 1 tab PO MOWEFR@1000 Allergies/Adverse Reactions: aspirin [Aspirin] Allergy (Verified 11/25/17 15:43) colchicine Allergy (Verified 11/28/17 15:56) iodine Allergy (Verified 11/28/17 15:56) Penicillins Allergy (Verified 11/25/17 15:43) Hives shellfish derived Allergy (Verified 11/28/17 15:56) Review of Systems Constitutional: PRESENT: fatigue, night sweats, weakness. ABSENT: fever(s), headache(s) Nose, Mouth, and Throat: ABSENT: sore throat Respiratory: PRESENT: cough, dyspnea. ABSENT: hemoptysis Gastrointestinal: ABSENT: constipation, diarrhea, dysphagia, heartburn, hematemesis, hematochezia Genitourinary: ABSENT: dysuria, hematuria Integumentary: ABSENT: lesions, pruritus Neurological: ABSENT: abnormal speech, confusion, convulsions, frequent falls Endocrine: ABSENT: cold intolerance, heat intolerance Physical Exam Vital Signs: Temp Pulse Resp BP Pulse Ox 97.9 F 77 18 143/54 H 100 11/29/17 07:00 11/29/17 07:40 11/29/17 07:40 11/29/17 07:00 11/29/17 07:40 Intake & Output 11/28/17 11/29/17 11/30/17 06:59 06:59 06:59 Intake Total 692 Balance 692 Weight 51.7 kg General appearance: PRESENT: mild distress Eye exam: PRESENT: EOMI, PERRLA. ABSENT: nystagmus Mouth exam: PRESENT: moist, neck supple Respiratory exam: PRESENT: crackles. ABSENT: chest wall tenderness, clear to auscultation koko - Harsh vesicular breath sounds coarse wheezing that is scattered in both the lung pereyra Cardiovascular exam: PRESENT: +S1, +S2 GI/Abdominal exam: PRESENT: normal bowel sounds, soft. ABSENT: distended, firm , organomegaly, tenderness Extremities exam: ABSENT: pedal edema Neurological exam: PRESENT: alert, awake, oriented to person Psychiatric exam: PRESENT: anxious Skin exam: ABSENT: cyanosis, mottled Results Laboratory Results: 11/29/17 05:03 11/29/17 05:03 11/28/17 11/28/17 11/29/17 16:29 20:10 05:03 WBC RBC Hgb Hct MCV MCH MCHC RDW Plt Count Seg Neutrophils % Lymphocytes % Monocytes % Eosinophils % Basophils % Absolute Neutrophils Absolute Lymphocytes Absolute Monocytes Absolute Eosinophils Absolute Basophils Sodium 144.1 Potassium 4.3 Chloride 109 H Carbon Dioxide 22 Anion Gap 13 BUN 57 H Creatinine 1.63 H Est GFR ( Amer) 37 L Est GFR (Non-Af Amer) 31 L Glucose 255 H Lactic Acid 4.6 H Calcium 9.3 Magnesium 2.7 H Lipase 673.4 H TSH 0.08 L 11/29/17 05:03 WBC 8.3 RBC 3.22 L Hgb 9.2 L Hct 27.7 L MCV 86 MCH 28.6 MCHC 33.3 RDW 17.7 H Plt Count 230 Seg Neutrophils % Not Reportable Lymphocytes % Not Reportable Monocytes % Not Reportable Eosinophils % Not Reportable Basophils % Not Reportable Absolute Neutrophils Not Reportable Absolute Lymphocytes Not Reportable Absolute Monocytes Not Reportable Absolute Eosinophils Not Reportable Absolute Basophils Not Reportable Sodium Potassium Chloride Carbon Dioxide Anion Gap BUN Creatinine Est GFR ( Amer) Est GFR (Non-Af Amer) Glucose Lactic Acid Calcium Magnesium Lipase TSH 11/28/17 11/28/17 11/28/17 16:29 16:29 22:57 Creatine Kinase 90 58 CK-MB (CK-2) 2.02 Troponin I 0.033 11/28/17 11/29/17 11/29/17 22:57 05:03 05:03 Creatine Kinase 59 CK-MB (CK-2) 1.27 1.01 Troponin I 0.022 0.019 Assessment & Plan - Diagnosis (1) CKD stage 3 due to type 1 diabetes mellitus Plan: Likely from underlying diabetic nephropathy. Currently she has acute kidney injury from her present issues of pneumonia and congestive heart failure. Will continue on current medications and monitor. (2) Anemia Qualifiers: Anemia type: unspecified type Qualified Code(s): D64.9 - Anemia, unspecified Is this a current diagnosis for this admission?: Yes Plan: Likely of chronic kidney disease. Monitor. (3) Atrial fibrillation with RVR Is this a current diagnosis for this admission?: Yes Plan: Currently on IV diltiazem and looks like she is converted into sinus rhythm. Enrolled Nurse managing (4) Congestive heart failure Qualifiers: Heart failure type: diastolic Heart failure chronicity: chronic Qualified Code(s): I50.32 - Chronic diastolic (congestive) heart failure Is this a current diagnosis for this admission?: Yes Plan: Relatively stable. Monitor. Continue present medications. (5) Pneumonia Qualifiers: Pneumonia type: due to unspecified organism Laterality: right Lung location: lower lobe of lung Qualified Code(s): J18.1 - Lobar pneumonia, unspecified organism Is this a current diagnosis for this admission?: Yes Plan: On IV antibiotics. (6) Respiratory distress Is this a current diagnosis for this admission?: Yes Plan: Respiratory failure from a combination of pneumonia and congestive heart failure and infective exacerbation of COPD.
--- NOTE | 2017-11-29 11:32 | RADIOLOGY REPORT (SQ) ---
EXAM DESCRIPTION: CT ABD/PELVIS NO ORAL OR IV COMPLETED DATE/TIME: 11/29/2017 11:08 am REASON FOR STUDY: elevated lipase/arf COMPARISON: None. TECHNIQUE: CT scan of the abdomen and pelvis performed without intravenous or oral contrast. Images reviewed with lung, soft tissue, and bone windows. Reconstructed coronal and sagittal MPR images revi ewed. All images stored on PACS. All CT scanners at this facility use dose modulation, iterative reconstruction, and/or weight based d osing when appropriate to reduce radiation dose to as low as reasonably achievable (ALARA). [facility]: Dose Right [facility]: CareDose [facility]: Dose Right [facility]: Teradose 4D [facility]: Smart Tarisa RADIATION DOSE: CT Rad equipment meets quality standard of care and radiation dose reduction techniq ues were employed. CTDIvol: 8.1 mGy. DLP: 344 mGy-cm.mGy. LIMITATIONS: Artifact from right hip arthroplasty. FINDINGS: LOWER CHEST: Large hiatal hernia. Cardiomegaly. Mitral annular calcifications. NON-CONTRASTED LIVER, SPLEEN, ADRENALS: Evaluation limited by lack of IV contrast. No identified sign ificant masses. PANCREAS: No masses. No peripancreatic inflammatory changes. GALLBLADDER: No identified stones by CT criteria. No inflammatory changes to suggest cholecystitis. RIGHT KIDNEY AND URETER: No suspicious masses. Assessment limited by lack of IV contrast. No signif icant calcifications. No hydronephrosis or hydroureter. LEFT KIDNEY AND URETER: No suspicious masses. Assessment limited by lack of IV contrast. No signifi cant calcifications. No hydronephrosis or hydroureter. AORTA AND RETROPERITONEUM: No aneurysm. No retroperitoneal masses or adenopathy. BOWEL AND PERITONEAL CAVITY: Right hemicolectomy. No obvious masses or inflammatory changes. No free fluid. APPENDIX: Surgically absent. PELVIS, BLADDER, AND ABDOMINAL WALL:No abnormal masses. No free fluid. Bladder normal. BONES: No significant findings. OTHER: No other significant finding. IMPRESSION: No acute findings in the abdomen or pelvis. COMMENT: Quality ID # [id number]: Final reports with documentation of one or more dose reduction techniques (e.g., Automated exposure control, adjustment of the mA and/or kV according to patient size, use of iterative reconstruction technique) TECHNICAL DOCUMENTATION: JOB ID: [id number] [employer]- All Rights Reserved
[2017-11-29 11:35] LABS: PATH REVIEW PATHOLOGIST REVIEWED
--- NOTE | 2017-11-29 11:53 | PDOC PROGRESS REPORT ---
Subjective Progress Note for:: 11/29/17 Subjective:: Patient seems to be doing better with gradual improvement. Pt is denying any chest arm or neck discomfort. Patient still has significant shortness of breath and on oxygen. Patient denying any PND, orthopnea. Patient denied any sustained palpitations, dizziness, syncope, near syncope. Patient denying any fever chills. Patient denying any other significant discomfort. Patient is maintaining sinus rhythm. Review of systems: Rest review of systems negative. Medications: Medications have been reviewed. Reason For Visit: COPD ACUTE EXCE,AFIB RVR Physical Exam Vital Signs: Temp Pulse Resp BP Pulse Ox 97.9 F 77 18 143/54 H 100 11/29/17 07:00 11/29/17 07:40 11/29/17 07:40 11/29/17 07:00 11/29/17 07:40 Intake & Output 11/28/17 11/29/17 11/30/17 06:59 06:59 06:59 Intake Total 692 Balance 692 Weight 51.7 kg Exam: GENERAL: well-nourished and in no acute distress. Alert and oriented x3 HEAD: Atraumatic, normocephalic. EYES: Pupils equal round and reactive to light, extraocular movements intact, sclera anicteric, conjunctiva are normal. ENT: TMs normal, nares patent, oropharynx clear without exudates. Moist mucous membranes. No oral ulcerations or bleeding gums noted NECK: supple without lymphadenopathy. Trachea is central. No cervical or axillary lymphadenopathy noted. Carotids are 2+, JVD WNL LUNGS: Respiration seems nonlabored, bilateral scattered wheezes rales or rhonchi noted. No significant dullness noted on percussion. CHEST: Palpation of the chest wall shows no significant chest wall tenderness. No other significant abnormalities noted. 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 ABDOMEN: Soft, no significant tenderness appreciated, normoactive bowel sounds. No guarding, no rebound. No rigidity noted . No masses appreciated. EXTREMITIES: Pedal pulses are 1-2+, no calf tenderness noted. No clubbing or cyanosis.trace to 1+ pedal edema noted NEUROLOGICAL: Focused neurological exam showed no significant neurologic deficit. Normal speech, no focal weakness appreciated. PSYCH: Normal mood, normal affect. Judgment and insight within normal limits. SKIN: No significant ecchymosis, rash, ulcerations or signs of pruritus noted. MUSCULOSKELETAL EXAM: No significant joint swelling noted. Results Laboratory Results: 11/29/17 05:03 11/29/17 05:03 11/28/17 11/28/17 11/29/17 16:29 20:10 05:03 WBC RBC Hgb Hct MCV MCH MCHC RDW Plt Count Seg Neutrophils % Lymphocytes % Monocytes % Eosinophils % Basophils % Absolute Neutrophils Absolute Lymphocytes Absolute Monocytes Absolute Eosinophils Absolute Basophils Sodium 144.1 Potassium 4.3 Chloride 109 H Carbon Dioxide 22 Anion Gap 13 BUN 57 H Creatinine 1.63 H Est GFR ( Amer) 37 L Est GFR (Non-Af Amer) 31 L Glucose 255 H Lactic Acid 4.6 H Calcium 9.3 Magnesium 2.7 H Lipase 673.4 H TSH 0.08 L 11/29/17 05:03 WBC 8.3 RBC 3.22 L Hgb 9.2 L Hct 27.7 L MCV 86 MCH 28.6 MCHC 33.3 RDW 17.7 H Plt Count 230 Seg Neutrophils % Not Reportable Lymphocytes % Not Reportable Monocytes % Not Reportable Eosinophils % Not Reportable Basophils % Not Reportable Absolute Neutrophils Not Reportable Absolute Lymphocytes Not Reportable Absolute Monocytes Not Reportable Absolute Eosinophils Not Reportable Absolute Basophils Not Reportable Sodium Potassium Chloride Carbon Dioxide Anion Gap BUN Creatinine Est GFR ( Amer) Est GFR (Non-Af Amer) Glucose Lactic Acid Calcium Magnesium Lipase TSH 11/28/17 11/28/17 11/28/17 16:29 16:29 22:57 Creatine Kinase 90 58 CK-MB (CK-2) 2.02 Troponin I 0.033 11/28/17 11/29/17 11/29/17 22:57 05:03 05:03 Creatine Kinase 59 CK-MB (CK-2) 1.27 1.01 Troponin I 0.022 0.019 Impressions: Abdomen/Pelvis CT 11/29/17 00:00 IMPRESSION: No acute findings in the abdomen or pelvis. Assessment & Plan - Diagnosis (1) Atrial fibrillation with RVR Is this a current diagnosis for this admission?: Yes (2) Anemia Qualifiers: Anemia type: unspecified type Qualified Code(s): D64.9 - Anemia, unspecified Is this a current diagnosis for this admission?: Yes (3) Asthma exacerbation Qualifiers: Asthma severity: unspecified severity Asthma persistence: persistent Qualified Code(s): J45.901 - Unspecified asthma with (acute) exacerbation Is this a current diagnosis for this admission?: Yes (4) Chronic kidney disease Qualifiers: Chronic kidney disease stage: stage 2 (mild) Qualified Code(s): N18.2 - Chronic kidney disease, stage 2 (mild) Is this a current diagnosis for this admission?: Yes (5) Congestive heart failure Qualifiers: Heart failure type: diastolic Heart failure chronicity: chronic Qualified Code(s): I50.32 - Chronic diastolic (congestive) heart failure Is this a current diagnosis for this admission?: Yes (6) Coronary artery disease Qualifiers: Coronary Disease-Associated Artery/Lesion type: unspecified vessel or lesion type Is this a current diagnosis for this admission?: Yes - Notes Notes: Patient had A. fib with rapid ventricular response. It seems patient does not tolerate atrial fibrillation. Continue Multaq therapy. Repeat EKG daily 3 for any QT prolongation. Atrial fibrillation with rapid ventricular response: Currently patient in sinus rhythm. It seems patient goes into very rapid ventricular response when she reverts back to atrial fibrillation. Discussed with patient's daughter regarding Multaq therapy. Will discuss feasibility of chronic anticoagulation with primary care attending. CHF: Possibly related to atrial fibrillation. Multaq has been reported to reduce CHF related admission in patients with A. fib. Coronary artery disease: Agree with cycling cardiac enzymes. Currently patient is chest pain-free. She did have significant ST segment depression but is probably rate related. Do not feel patient would need any ischemia evaluation. Cardiac enzymes has been unremarkable. Chronic kidney disease: Currently stable patient being followed by supervisor furnace room. Asthma exacerbation: Continue with bronchodilator and steroid therapy as needed. Patient seems to have severe underlying COPD/asthma. Anemia: Currently stable try maintain hemoglobin above 8 g percent. - Time Time with patient: Greater than 35 minutes - CODE STATUS was discussed, patient remains full code. Surrogate decision-maker patient's daughter. Multiple medical problems were addressed. More than 50% of the time spent coordinating care, discussing management plans with involved caregivers. Management plans discussed with involved personnels. Medical decision making was of moderate to high complexity, patient's has multiple comorbidities. Medications reviewed and adjusted accordingly: Yes
[2017-11-29] MEDS: INSULIN LISPRO 100 UNIT/ML 3 ML VIAL SUBCUT PRN ×3 (13:16→22:13)
--- NOTE | 2017-11-29 14:04 | PDOC PROGRESS REPORT ---
Subjective Progress Note for:: 11/29/17 Subjective:: Patient is currently doing fair Denied any chest pain denied any shortness of the breath actually patients feel better compared to yesterday Patient's denied any abdominal pains but patient's lipase is slightly elevated Reason For Visit: COPD ACUTE EXCE,AFIB RVR Physical Exam Vital Signs: Temp Pulse Resp BP Pulse Ox 97.9 F 71 16 143/54 H 99 11/29/17 07:00 11/29/17 11:47 11/29/17 11:47 11/29/17 07:00 11/29/17 11:47 Intake & Output 11/28/17 11/29/17 11/30/17 06:59 06:59 06:59 Intake Total 692 Balance 692 Weight 51.7 kg General appearance: PRESENT: no acute distress, well-developed, well-nourished Head exam: PRESENT: atraumatic, normocephalic Eye exam: PRESENT: conjunctiva pink, EOMI, PERRLA. ABSENT: scleral icterus Ear exam: PRESENT: normal external ear exam Mouth exam: PRESENT: moist, tongue midline Neck exam: PRESENT: full ROM. ABSENT: carotid bruit, JVD, lymphadenopathy, thyromegaly Respiratory exam: PRESENT: clear to auscultation koko Cardiovascular exam: PRESENT: RRR. ABSENT: diastolic murmur, rubs, systolic murmur Pulses: PRESENT: normal dorsalis pedis pul, +2 pedal pulses bilateral Vascular exam: PRESENT: normal capillary refill GI/Abdominal exam: PRESENT: normal bowel sounds, soft. ABSENT: distended, guarding, mass, organolmegaly, rebound, tenderness Rectal exam: PRESENT: deferred Musculoskeletal exam: PRESENT: ambulatory Neurological exam: PRESENT: alert, awake, oriented to person, oriented to place , oriented to time, oriented to situation, CN II-XII grossly intact. ABSENT: motor sensory deficit Psychiatric exam: PRESENT: appropriate affect, normal mood. ABSENT: homicidal ideation, suicidal ideation Skin exam: PRESENT: dry, intact, warm. ABSENT: cyanosis, rash Results Laboratory Results: 11/29/17 05:03 11/29/17 05:03 11/28/17 11/28/17 11/29/17 16:29 20:10 05:03 WBC RBC Hgb Hct MCV MCH MCHC RDW Plt Count Seg Neutrophils % Lymphocytes % Monocytes % Eosinophils % Basophils % Absolute Neutrophils Absolute Lymphocytes Absolute Monocytes Absolute Eosinophils Absolute Basophils Sodium 144.1 Potassium 4.3 Chloride 109 H Carbon Dioxide 22 Anion Gap 13 BUN 57 H Creatinine 1.63 H Est GFR ( Amer) 37 L Est GFR (Non-Af Amer) 31 L Glucose 255 H Lactic Acid 4.6 H Calcium 9.3 Magnesium 2.7 H Lipase 673.4 H TSH 0.08 L 11/29/17 05:03 WBC 8.3 RBC 3.22 L Hgb 9.2 L Hct 27.7 L MCV 86 MCH 28.6 MCHC 33.3 RDW 17.7 H Plt Count 230 Seg Neutrophils % Not Reportable Lymphocytes % Not Reportable Monocytes % Not Reportable Eosinophils % Not Reportable Basophils % Not Reportable Absolute Neutrophils Not Reportable Absolute Lymphocytes Not Reportable Absolute Monocytes Not Reportable Absolute Eosinophils Not Reportable Absolute Basophils Not Reportable Sodium Potassium Chloride Carbon Dioxide Anion Gap BUN Creatinine Est GFR ( Amer) Est GFR (Non-Af Amer) Glucose Lactic Acid Calcium Magnesium Lipase TSH 11/28/17 11/28/17 11/28/17 16:29 16:29 22:57 Creatine Kinase 90 58 CK-MB (CK-2) 2.02 Troponin I 0.033 11/28/17 11/29/17 11/29/17 22:57 05:03 05:03 Creatine Kinase 59 CK-MB (CK-2) 1.27 1.01 Troponin I 0.022 0.019 Impressions: Abdomen/Pelvis CT 11/29/17 00:00 IMPRESSION: No acute findings in the abdomen or pelvis. Assessment & Plan - Diagnosis (1) Asthma exacerbation Qualifiers: Asthma severity: unspecified severity Asthma persistence: persistent Qualified Code(s): J45.901 - Unspecified asthma with (acute) exacerbation Is this a current diagnosis for this admission?: Yes Plan: Start the patient on Xopenex nebulizer increase the steroid (2) Respiratory distress Is this a current diagnosis for this admission?: Yes Plan: Due to the above conditions we will consult the pulmonary for the patient's have a significant history of the pulmonary disease and patient's already seen by Dr. Patino's last week (3) Atrial fibrillation with RVR Is this a current diagnosis for this admission?: Yes Plan: Currently switched to the p.o. Cardizem (4) Pneumonia Qualifiers: Pneumonia type: due to unspecified organism Laterality: right Lung location: lower lobe of lung Qualified Code(s): J18.1 - Lobar pneumonia, unspecified organism Is this a current diagnosis for this admission?: Yes Plan: Start the patient on IV Levaquin get the sputum culture (5) Congestive heart failure Qualifiers: Heart failure type: diastolic Heart failure chronicity: chronic Qualified Code(s): I50.32 - Chronic diastolic (congestive) heart failure Is this a current diagnosis for this admission?: Yes Plan: Continues to Lasix (6) Coronary artery disease Qualifiers: Coronary Disease-Associated Artery/Lesion type: unspecified vessel or lesion type Is this a current diagnosis for this admission?: Yes Plan: Currently all stable (7) Anemia Qualifiers: Anemia type: unspecified type Qualified Code(s): D64.9 - Anemia, unspecified Is this a current diagnosis for this admission?: Yes Plan: Currently all stable (8) Chronic kidney disease Qualifiers: Chronic kidney disease stage: stage 2 (mild) Qualified Code(s): N18.2 - Chronic kidney disease, stage 2 (mild) Is this a current diagnosis for this admission?: Yes Plan: Consult the nephrology for further evaluations well patient already have appointment to see him yesterday as outpatient with the worsening the kidney function since last several months (9) Osteoarthritis Qualifiers: Laterality: unspecified laterality Is this a current diagnosis for this admission?: Yes (10) Addisons disease Is this a current diagnosis for this admission?: Yes Plan: Continues IV steroid - Time Time Spent with patient: 15-24 minutes Medications reviewed and adjusted accordingly: Yes Anticipated discharge: Home Within: Other - Inpatient Certification Medical Necessity: Need Close Monitoring Due to Risk of Patient Decompensation, Need for IV Antibiotics Post Hospital Care: D/C Manager Transmission Documentation - Plan Summary Plan Summary: Continues to IV antibiotics taper the steroid and the weekend continues to monitor the patient's discussed with the daughter regarding the patient's current conditions
--- NOTE | 2017-11-29 18:54 | XCELERA REPORT ---
[address] [address] Transthoracic Echocardiogram Report Name: JESSY PARKER Age: 77 yrs Gender: Female : 1940 Patient Status: Inpatient Patient Location: [address] [place] [address] Study Date: 11/29/2017 08:56 AM Height: 59 in Weight: 112 lb BSA: 1.4 m2 Procedure: A complete two-dimensional transthoracic echocardiogram was performed (2D, M-mode, spectral and color flow Doppler). The study was technically difficult with many images being suboptimal in quality. Reason For Study: CHF Ordering Physician: JUAN COLLIER Performed By: Melany Corrales Interpretation Summary The left ventricular ejection fraction is normal. Doppler measurements suggest pseudonormalized left ventricular relaxation, which is associated with grade II/IV or mild to moderate diastolic dysfunction There is mild concentric left ventricular hypertrophy. The left ventricle is grossly normal size. Wall motion cannot be accurately commented on, but no definite regional wall motion abnormalities noted. The right ventricular systolic function is normal. The right atrium is normal. The left atrial size is normal. There is a mild amount of mitral regurgitation There is no mitral valve stenosis. No aortic regurgitation is present. There is no aortic valve stenosis There is a trace to mild amount of tricuspid regurgitation There is mild pulmonary hypertension by echo Right ventricular systolic pressure is estimated to be elevated at 30- 40mmHg. There is no pericardial effusion. MMode/2D Measurements & Calculations RVDd: 3.2 cm LVIDd: 4.3 cm FS: 38.9 % Ao root diam: 2.5 cm IVSd: 1.1 cm LVIDs: 2.6 cm EDV(Teich): 80.9 ml LVPWd: 1.0 cm ESV(Teich): 24.6 ml Ao root area: 5.1 cm2 EF(Teich): 69.6 % LA dimension: 3.0 cm Doppler Measurements & Calculations MV E max brittani: MV P1/2t max brittani: Ao V2 max: LV V1 max P.7 cm/sec 98.2 cm/sec 159.5 cm/sec 5.9 mmHg MV A max brittani: MV P1/2t: 62.4 msec Ao max PG: LV V1 max: 121.4 cm/sec 10.2 mmHg 121.9 cm/sec MV E/A: 0.80 MVA(P1/2t): 3.5 cm2 MV dec slope: 460.9 cm/sec2 MV dec time: 0.21 sec PA V2 max: TR max brittani: 120.4 cm/sec 271.0 cm/sec PA max P.8 mmHgTR max P.4 mmHg Left Ventricle The left ventricle is grossly normal size. There is mild concentric left ventricular hypertrophy. The left ventricular ejection fraction is normal. Doppler measurements suggest pseudonormalized left ventricular relaxation, which is associated with grade II/IV or mild to moderate diastolic dysfunction. Wall motion cannot be accurately commented on, but no definite regional wall motion abnormalities noted. Right Ventricle The right ventricle is grossly normal size. There is normal right ventricular wall thickness. The right ventricular systolic function is normal. Atria The right atrium is normal. The left atrial size is normal. Interarterial septum not well visualized and not well dopplered. Cannot comment on ASD/PFO presence. Mitral Valve There is mild to moderate mitral annular calcification. There is no mitral valve stenosis. There is a mild amount of mitral regurgitation. Aortic Valve The aortic valve is grossly normal. There is no aortic valve stenosis. No aortic regurgitation is present. Tricuspid Valve The tricuspid valve is not well visualized secondary to technical limitations. There is no tricuspid stenosis. There is a trace to mild amount of tricuspid regurgitation. There is mild pulmonary hypertension by echo. Right ventricular systolic pressure is estimated to be elevated at 30-40mmHg. Pulmonic Valve The pulmonic valve is not well visualized. Great Vessels The aortic root is not well visualized but is probably normal size. The inferior vena cava was not well visualized. Effusions There is no pericardial effusion. : JUAN COLLIER > Juan Collier
[2017-11-30] MEDS: LEVALBUTEROL HCL NEB 0.63 MG/3 ML AMPUL NEB SCH ×6 (00:02→19:38)
[2017-11-30] MEDS: DILTIAZEM HCL 180 MG CAPSULE.CR PO SCH (04:11)
[2017-11-30 05:32] LABS: HEMATOCRIT 26.8 % (36.0-47.0); HEMOGLOBIN 8.8 g/dL (12.0-15.5); MEAN CORPUSCULAR HEMOGLOBIN 28.3 pg (27.0-33.4); MEAN CORPUSCULAR HGB CONC 32.8 g/dL (32.0-36.0); MEAN CORPUSCULAR VOLUME 86 fl (80-97); PLATELET COUNT 217 10^3/uL (150-450); RED BLOOD COUNT 3.11 10^6/uL (3.72-5.28); RED CELL DISTRIBUTION WIDTH 17.6 % (11.5-14.0); WHITE BLOOD COUNT 9.5 10^3/uL (4.0-10.5)
[2017-11-30 05:42] LABS: ANION GAP 13 (5-19); BLOOD UREA NITROGEN 67 mg/dL (7-20); CALCIUM 9.3 mg/dL (8.4-10.2); CARBON DIOXIDE 20 mmol/L (22-30); CHLORIDE 110 mmol/L (98-107); GLUCOSE 329 mg/dL (75-110); POTASSIUM 4.2 mmol/L (3.6-5.0); SODIUM 142.9 mmol/L (137-145)
[2017-11-30 06:31] LABS: ABSOLUTE LYMPHOCYTES# (MANUAL) 0.4 10^3/uL (0.5-4.7); ABSOLUTE MONOCYTES # (MANUAL) 0.5 10^3/uL (0.1-1.4); ABSOLUTE NEUTROPHILS# (MANUAL) 8.6 10^3/uL (1.7-8.2); ANISOCYTOSIS 1+; BASOPHILS % (MANUAL) 0 % (0-2); EOSINOPHILS % (MANUAL) 0 % (0-6); LYMPHOCYTES % (MANUAL) 4 % (13-45); MONOCYTES % (MANUAL) 5 % (3-13); SEGMENTED NEUTROPHILS % (MAN) 91 % (42-78); TOTAL CELLS COUNTED 100
[2017-11-30 06:32] LABS: OVALOCYTES SLIGHT; TEAR DROP CELLS SLIGHT
[2017-11-30 06:33] LABS: PLATELET COMMENT ADEQUATE
[2017-11-30] MEDS: HEPARIN SOD (PORCINE) 5,000 UNIT/ML 1 ML SYRINGE SUBCUT SCH ×3 (06:38→21:15)
[2017-11-30] MEDS: INSULIN LISPRO 100 UNIT/ML 3 ML VIAL SUBCUT PRN ×3 (06:38→21:32)
[2017-11-30] MEDS: METHYLPREDNISOLONE INJ 40 MG/1 ML SDV IV SCH (06:39)
[2017-11-30] MEDS: LANSOPRAZOLE 15 MG TAB.RAP.DR PO SCH ×2 (06:39→18:15)
[2017-11-30] MEDS: GABAPENTIN 400 MG CAPSULE PO SCH ×3 (06:39→21:15)
[2017-11-30] MEDS: ACETAMINOPHEN 325 MG TABLET PO PRN ×2 (08:03→21:33)
[2017-11-30] MEDS: FUROSEMIDE 40 MG TABLET PO SCH (08:04)
[2017-11-30] MEDS ORDERED: BUDESONIDE NEB 0.5 MG/2 ML AMPUL NEB PRN (09:29)
[2017-11-30] MEDS ORDERED: METHYLPREDNISOLONE INJ 40 MG/1 ML SDV IV SCH (09:30)
[2017-11-30] MEDS ORDERED: METHYLPREDNISOLONE INJ 125 MG/2 ML SDV IV ONE (09:45)
--- NOTE | 2017-11-30 09:47 | EKG REPORT ---
SEVERITY:- NORMAL ECG - SINUS RHYTHM : Confirmed by: Juan Todd 30-Nov-2017 09:46:27
[2017-11-30] MEDS ORDERED: MONTELUKAST SODIUM 10 MG TABLET PO ONE (10:00)
[2017-11-30 10:35] LABS: ARTERIAL BLOOD BASE EXCESS -2.5 mmol/L; ARTERIAL BLOOD FIO2 2L; ARTERIAL BLOOD H2CO3 0.82 mmol/L (1.05-1.35); ARTERIAL BLOOD HCO3 20.1 mmol/L (20-26); ARTERIAL BLOOD O2 SATURATION 98.2 % (94-98); ARTERIAL BLOOD PCO2 27.4 mmHg (35-45); ARTERIAL BLOOD PH 7.48 (7.35-7.45); ARTERIAL BLOOD PO2 105.1 mmHg (80-100); ARTERIAL BLOOD TOTAL CO2 20.9 mmol/L (21-25)
[2017-11-30] MEDS: LEVOFLOXACIN 500 MG/D5W RTU 500 MG/100 ML RTUPB IV SCH (11:53)
[2017-11-30] MEDS: ALPRAZOLAM 0.25 MG TABLET PO PRN (11:54)
[2017-11-30] MEDS: FERROUS SULFATE 325 MG TABLET PO SCH (11:54)
[2017-11-30] MEDS: DRONEDARONE HYDROCHLORIDE 400 MG TABLET PO SCH ×2 (11:54→21:16)
--- NOTE | 2017-11-30 13:16 | RADIOLOGY REPORT (SQ) ---
EXAM DESCRIPTION: CHEST SINGLE VIEW COMPLETED DATE/TIME: 11/30/2017 1:06 pm REASON FOR STUDY: follow up CHF COMPARISON: None. EXAM PARAMETERS: NUMBER OF VIEWS: One view. TECHNIQUE: Single frontal radiographic view of the chest acquired. RADIATION DOSE: NA LIMITATIONS: None. FINDINGS: LUNGS AND PLEURA: Right basilar infiltrate or pneumonia. No significant change. MEDIASTINUM AND HILAR STRUCTURES: Hiatal hernia. HEART AND VASCULAR STRUCTURES: Borderline cardiac size. Pulmonary vasculature normal. BONES: There is subluxation of the left humeral head suggesting anterior dislocation. HARDWARE: None in the chest. OTHER: Chest leads in place. IMPRESSION: Borderline cardiomegaly and aortic atherosclerosis. Right basilar consolidation or pneu monia. Hiatal hernia. An anterior dislocation of the left shoulder is not excluded. TECHNICAL DOCUMENTATION: JOB ID: [id number] [id number] 2010 [employer]- All Rights Reserved
[2017-11-30] MEDS ORDERED: METHYLPREDNISOLONE INJ 125 MG/2 ML SDV IV SCH (15:00)
--- NOTE | 2017-11-30 18:36 | PDOC PROGRESS REPORT ---
Subjective Progress Note for:: 11/30/17 Subjective:: Patient had significant difficulty with breathing earlier today with need for her steroid therapy dosing adjustment and BiPAP support. No chest pain. No reported fever or chills. No nausea, vomiting or abdominal pain. Reason For Visit: COPD ACUTE EXCE,AFIB RVR Physical Exam Vital Signs: Temp Pulse Resp BP Pulse Ox 97.1 F 74 18 104/44 L 100 11/30/17 16:59 11/30/17 16:23 11/30/17 16:23 11/30/17 16:03 11/30/17 16:23 Intake & Output 11/29/17 11/30/17 12/01/17 06:59 06:59 06:59 Intake Total 692 1379 Output Total 2 Balance 692 1377 Weight 51.7 kg 51.7 kg General appearance: PRESENT: mild distress - on BiPAP support presently. Head exam: PRESENT: atraumatic, normocephalic Eye exam: PRESENT: EOMI, PERRLA, other - left subconjunctiva bleed inferior segment. ABSENT: conjunctiva pale Respiratory exam: PRESENT: decreased breath sounds - at lung bases, prolonged expiratory phas Cardiovascular exam: PRESENT: bradycardia, RRR. ABSENT: diastolic murmur, rubs , systolic murmur Vascular exam: PRESENT: normal capillary refill. ABSENT: pallor GI/Abdominal exam: PRESENT: normal bowel sounds, soft. ABSENT: distended, guarding, mass, organolmegaly, rebound, tenderness Extremities exam: ABSENT: pedal edema Musculoskeletal exam: PRESENT: deformity - related to multiple joints involvement with arthritis Neurological exam: PRESENT: alert - and appropriate in simple responses, awake, oriented to person, oriented to place, oriented to time, oriented to situation, CN II-XII grossly intact, motor sensory deficit Psychiatric exam: PRESENT: anxious. ABSENT: agitated, appropriate affect, depressed, flat affect, homicidal ideation, manic, normal mood, suicidal ideation, unusual affect, other Skin exam: PRESENT: dry, intact, warm. ABSENT: cyanosis, rash Results Laboratory Results: 11/30/17 04:49 11/30/17 04:49 11/30/17 11/30/17 11/30/17 04:49 04:49 09:40 WBC 9.5 RBC 3.11 L Hgb 8.8 L Hct 26.8 L MCV 86 MCH 28.3 MCHC 32.8 RDW 17.6 H Plt Count 217 Seg Neutrophils % Not Reportable Lymphocytes % Not Reportable Monocytes % Not Reportable Eosinophils % Not Reportable Basophils % Not Reportable Absolute Neutrophils Not Reportable Absolute Lymphocytes Not Reportable Absolute Monocytes Not Reportable Absolute Eosinophils Not Reportable Absolute Basophils Not Reportable Carbonic Acid 0.82 L HCO3/H2CO3 Ratio 24:1 ABG pH 7.48 H ABG pCO2 27.4 L ABG pO2 105.1 H ABG HCO3 20.1 ABG O2 Saturation 98.2 H ABG Base Excess -2.5 FiO2 2L Sodium 142.9 Potassium 4.2 Chloride 110 H Carbon Dioxide 20 L Anion Gap 13 BUN 67 H Creatinine 1.48 H Est GFR ( Amer) 41 L Est GFR (Non-Af Amer) 34 L Glucose 329 H Calcium 9.3 Magnesium 2.7 H 11/28/17 11/28/17 11/28/17 16:29 16:29 22:57 Creatine Kinase 90 58 CK-MB (CK-2) 2.02 Troponin I 0.033 11/28/17 11/29/17 11/29/17 22:57 05:03 05:03 Creatine Kinase 59 CK-MB (CK-2) 1.27 1.01 Troponin I 0.022 0.019 Impressions: Abdomen/Pelvis CT 11/29/17 00:00 IMPRESSION: No acute findings in the abdomen or pelvis. Chest X-Ray 11/30/17 11:21 IMPRESSION: Borderline cardiomegaly and aortic atherosclerosis. Right basilar consolidation or pneumonia. Hiatal hernia. An anterior dislocation of the left shoulder is not excluded. Assessment & Plan - Diagnosis (1) Acute exacerbation of COPD with asthma Is this a current diagnosis for this admission?: Yes Plan: See covering attending physician orders. (2) Pneumonia Qualifiers: Pneumonia type: due to unspecified organism Laterality: right Lung location: lower lobe of lung Qualified Code(s): J18.1 - Lobar pneumonia, unspecified organism Is this a current diagnosis for this admission?: Yes Plan: See covering attending physician orders. (3) Respiratory distress Is this a current diagnosis for this admission?: Yes Plan: See covering attending physician orders. (4) Atrial fibrillation with RVR Is this a current diagnosis for this admission?: Yes Plan: See covering attending physician orders. (5) Chronic kidney disease Qualifiers: Chronic kidney disease stage: stage 2 (mild) Qualified Code(s): N18.2 - Chronic kidney disease, stage 2 (mild) Is this a current diagnosis for this admission?: Yes Plan: See covering attending physician orders. (6) Anemia of chronic disease Is this a current diagnosis for this admission?: Yes Plan: See covering attending physician orders. - Time Time Spent with patient: 25-34 minutes Medications reviewed and adjusted accordingly: Yes Anticipated discharge: Home with Homehealth Within: Other - Inpatient Certification Based on my medical assessment, after consideration of the patient's comorbidities, presenting symptoms, or acuity I expect that the services needed warrant INPATIENT care.: Yes I certify that my determination is in accordance with my understanding of Medicare's requirements for reasonable and necessary INPATIENT services [42 CFR 412.3e].: Yes Medical Necessity: Need Close Monitoring Due to Risk of Patient Decompensation, Need For Continuous Telemetry Monitoring, Need for Nebulizer Therapy and Monitoring of Response, Need for IV Antibiotics, Risk of Complication if Not Cared For in Hospital - Plan Summary Plan Summary: See covering attending physician orders. I discussed case with Dr. Patino, pulmonary executive search consultant, on the case. Agreed with decrease of IV Solu Medrol dosage. Follow up on AM lab findings.
[2017-11-30] MEDS ORDERED: INSULIN LISPRO 100 UNIT/ML 3 ML VIAL SUBCUT ONE (18:45)
[2017-11-30] MEDS: BUDESONIDE NEB 0.5 MG/2 ML AMPUL NEB SCH (19:38)
[2017-11-30] MEDS: METHYLPREDNISOLONE INJ 125 MG/2 ML SDV IV SCH (21:15)
--- NOTE | 2017-11-30 22:53 | PDOC PROGRESS REPORT ---
Subjective Progress Note for:: 11/30/17 Subjective:: Patient seems to be doing better with gradual improvement. Pt is denying any chest arm or neck discomfort. Patient still has significant shortness of breath and on oxygen. Patient denying any PND, orthopnea. Patient denied any sustained palpitations, dizziness, syncope, near syncope. Patient denying any fever chills. Patient denying any other significant discomfort. Patient is maintaining sinus rhythm. Review of systems: Rest review of systems negative. Medications: Medications have been reviewed. Reason For Visit: COPD ACUTE EXCE,AFIB RVR Physical Exam Vital Signs: Temp Pulse Resp BP Pulse Ox 97.1 F 56 L 14 104/44 L 98 11/30/17 16:59 11/30/17 19:38 11/30/17 19:38 11/30/17 16:03 11/30/17 19:38 Intake & Output 11/29/17 11/30/17 12/01/17 06:59 06:59 06:59 Intake Total 692 1379 1100 Output Total 2 Balance 692 1377 1100 Weight 51.7 kg 51.7 kg Exam: GENERAL: well-nourished and in mild respiratory distress. Alert and oriented x3 HEAD: Atraumatic, normocephalic. EYES: Pupils equal round and reactive to light, extraocular movements intact, sclera anicteric, conjunctiva are normal. ENT: TMs normal, nares patent, oropharynx clear without exudates. Moist mucous membranes. No oral ulcerations or bleeding gums noted NECK: supple without lymphadenopathy. Trachea is central. No cervical or axillary lymphadenopathy noted. Carotids are 2+, JVD WNL LUNGS: Respiration seems labored, bilateral wheezes rales or rhonchi noted. No significant dullness noted on percussion. CHEST: Palpation of the chest wall shows no significant chest wall tenderness. No other significant abnormalities noted. HEART: [place] [employer]ICIAN, No PSH, 1/6 ROLY aortic area, 1/6 tran systolic murmur mitral area, no rubs, no gallops. ABDOMEN: Soft, no significant tenderness appreciated, normoactive bowel sounds. No guarding, no rebound. No rigidity noted . No masses appreciated. EXTREMITIES: Pedal pulses are 1-2+, no calf tenderness noted. No clubbing or cyanosis.trace to 1+ pedal edema noted NEUROLOGICAL: Focused neurological exam showed no significant neurologic deficit. Normal speech, no focal weakness appreciated. PSYCH: Normal mood, normal affect. Judgment and insight within normal limits. SKIN: No significant ecchymosis, rash, ulcerations or signs of pruritus noted. MUSCULOSKELETAL EXAM: No significant joint swelling noted. Results Laboratory Results: 11/30/17 04:49 11/30/17 04:49 11/30/17 11/30/17 11/30/17 04:49 04:49 09:40 WBC 9.5 RBC 3.11 L Hgb 8.8 L Hct 26.8 L MCV 86 MCH 28.3 MCHC 32.8 RDW 17.6 H Plt Count 217 Seg Neutrophils % Not Reportable Lymphocytes % Not Reportable Monocytes % Not Reportable Eosinophils % Not Reportable Basophils % Not Reportable Absolute Neutrophils Not Reportable Absolute Lymphocytes Not Reportable Absolute Monocytes Not Reportable Absolute Eosinophils Not Reportable Absolute Basophils Not Reportable Carbonic Acid 0.82 L HCO3/H2CO3 Ratio 24:1 ABG pH 7.48 H ABG pCO2 27.4 L ABG pO2 105.1 H ABG HCO3 20.1 ABG O2 Saturation 98.2 H ABG Base Excess -2.5 FiO2 2L Sodium 142.9 Potassium 4.2 Chloride 110 H Carbon Dioxide 20 L Anion Gap 13 BUN 67 H Creatinine 1.48 H Est GFR ( Amer) 41 L Est GFR (Non-Af Amer) 34 L Glucose 329 H Calcium 9.3 Magnesium 2.7 H 11/28/17 11/28/17 11/28/17 16:29 16:29 22:57 Creatine Kinase 90 58 CK-MB (CK-2) 2.02 Troponin I 0.033 11/28/17 11/29/17 11/29/17 22:57 05:03 05:03 Creatine Kinase 59 CK-MB (CK-2) 1.27 1.01 Troponin I 0.022 0.019 EKG Comments: Telemetry shows sinus rhythm Impressions: Abdomen/Pelvis CT 11/29/17 00:00 IMPRESSION: No acute findings in the abdomen or pelvis. Chest X-Ray 11/30/17 11:21 IMPRESSION: Borderline cardiomegaly and aortic atherosclerosis. Right basilar consolidation or pneumonia. Hiatal hernia. An anterior dislocation of the left shoulder is not excluded. Assessment & Plan - Diagnosis (1) Atrial fibrillation with RVR Is this a current diagnosis for this admission?: Yes (2) Anemia Qualifiers: Anemia type: unspecified type Qualified Code(s): D64.9 - Anemia, unspecified Is this a current diagnosis for this admission?: Yes (3) Asthma exacerbation Qualifiers: Asthma severity: unspecified severity Asthma persistence: persistent Qualified Code(s): J45.901 - Unspecified asthma with (acute) exacerbation Is this a current diagnosis for this admission?: Yes (4) Chronic kidney disease Qualifiers: Chronic kidney disease stage: stage 2 (mild) Qualified Code(s): N18.2 - Chronic kidney disease, stage 2 (mild) Is this a current diagnosis for this admission?: Yes (5) Congestive heart failure Qualifiers: Heart failure type: diastolic Heart failure chronicity: chronic Qualified Code(s): I50.32 - Chronic diastolic (congestive) heart failure Is this a current diagnosis for this admission?: Yes (6) Coronary artery disease Qualifiers: Coronary Disease-Associated Artery/Lesion type: unspecified vessel or lesion type Is this a current diagnosis for this admission?: Yes - Notes Notes: Patient noted to have significant respiratory distress. ABGs reviewed. Patient seems to be hyperventilating. EKG reviewed showed sinus rhythm no acute ST-T wave changes noted. Telemetry strip shows intermittent tachycardia but maintaining sinus. Patient could be having panic attacks. Start Xanax at low dose. CXR ordered. Atrial fibrillation with rapid ventricular response: Currently patient in sinus rhythm. It seems patient goes into very rapid ventricular response when she reverts back to atrial fibrillation. Patient seems to be tolerating multaq therapy. Because of her comorbid diagnosis, this is the only medication that can be safely used. Feel that risk benefits favor starting this at this point. Will also discuss feasibility of chronic anticoagulation with primary care attending. CHF: Possibly related to atrial fibrillation. Multaq has been reported to reduce CHF related admission in patients with A. fib. Coronary artery disease: Agree with cycling cardiac enzymes. Currently patient is chest pain-free. She did have significant ST segment depression but is probably rate related. Chronic kidney disease: Currently stable patient being followed by land commissioner. Asthma exacerbation: Continue with bronchodilator and steroid therapy as needed. Patient seems to have severe underlying COPD/asthma. Anemia: Currently stable try maintain hemoglobin above 8 g percent. Had long discussion with patient's daughter who was in the room. - Time Time with patient: Greater than 35 minutes - CODE STATUS : was discussed, patient remains DO NOT RESUSCITATE. Surrogate decision-maker unchanged. Multiple medical problems were addressed. More than 50% of the time spent coordinating care, discussing management plans with involved caregivers. Management plans discussed with involved personnels. Medical decision making was of moderate to high complexity, patient's has multiple comorbidities. Medications reviewed and adjusted accordingly: Yes
[2017-12-01] MEDS: LEVALBUTEROL HCL NEB 0.63 MG/3 ML AMPUL NEB SCH ×6 (00:22→20:06)
[2017-12-01] MEDS: METHYLPREDNISOLONE INJ 125 MG/2 ML SDV IV SCH ×4 (04:14→21:31)
[2017-12-01 05:33] LABS: HEMATOCRIT 26.2 % (36.0-47.0); HEMOGLOBIN 8.7 g/dL (12.0-15.5); MEAN CORPUSCULAR HEMOGLOBIN 28.4 pg (27.0-33.4); MEAN CORPUSCULAR HGB CONC 33.1 g/dL (32.0-36.0); MEAN CORPUSCULAR VOLUME 86 fl (80-97); PLATELET COUNT 224 10^3/uL (150-450); RED BLOOD COUNT 3.04 10^6/uL (3.72-5.28); RED CELL DISTRIBUTION WIDTH 17.8 % (11.5-14.0); WHITE BLOOD COUNT 9.7 10^3/uL (4.0-10.5)
[2017-12-01 05:45] LABS: ANION GAP 13 (5-19); CARBON DIOXIDE 19 mmol/L (22-30); CHLORIDE 106 mmol/L (98-107); GLUCOSE 233 mg/dL (75-110); POTASSIUM 4.1 mmol/L (3.6-5.0)
[2017-12-01 06:01] LABS: ABSOLUTE LYMPHOCYTES# (MANUAL) 0.5 10^3/uL (0.5-4.7); ABSOLUTE MONOCYTES # (MANUAL) 0.2 10^3/uL (0.1-1.4); BAND NEUTROPHILS % (MANUAL) 1 % (3-5); BASOPHILS % (MANUAL) 0 % (0-2); EOSINOPHILS % (MANUAL) 0 % (0-6); LYMPHOCYTES % (MANUAL) 5 % (13-45); MONOCYTES % (MANUAL) 2 % (3-13); NUCLEATED RED BLOOD CELLS 1 /100 WBC (0); SEGMENTED NEUTROPHILS % (MAN) 92 % (42-78); TOTAL CELLS COUNTED 100
[2017-12-01 06:03] LABS: ANISOCYTOSIS 1+; BLOOD UREA NITROGEN 88 mg/dL (7-20); HYPOCHROMASIA SLIGHT; OVALOCYTES SLIGHT; PLATELET COMMENT ADEQUATE; POIKILOCYTOSIS SLIGHT; POLYCHROMASIA SLIGHT; TEAR DROP CELLS SLIGHT
[2017-12-01] MEDS: LANSOPRAZOLE 15 MG TAB.RAP.DR PO SCH ×2 (06:39→17:53)
[2017-12-01] MEDS: GABAPENTIN 400 MG CAPSULE PO SCH ×3 (06:39→21:31)
[2017-12-01] MEDS: HEPARIN SOD (PORCINE) 5,000 UNIT/ML 1 ML SYRINGE SUBCUT SCH ×3 (06:39→21:31)
[2017-12-01] MEDS: ACETAMINOPHEN 325 MG TABLET PO PRN ×3 (06:45→21:32)
[2017-12-01 07:29] LABS: ARTERIAL BLOOD BASE EXCESS -2.7 mmol/L; ARTERIAL BLOOD FIO2 35%; ARTERIAL BLOOD H2CO3 0.83 mmol/L (1.05-1.35); ARTERIAL BLOOD HCO3 20.1 mmol/L (20-26); ARTERIAL BLOOD O2 SATURATION 99.1 % (94-98); ARTERIAL BLOOD PCO2 27.6 mmHg (35-45); ARTERIAL BLOOD PH 7.48 (7.35-7.45); ARTERIAL BLOOD PO2 151.7 mmHg (80-100); ARTERIAL BLOOD TOTAL CO2 20.9 mmol/L (21-25)
[2017-12-01] MEDS: BUDESONIDE NEB 0.5 MG/2 ML AMPUL NEB SCH ×2 (07:43→20:06)
--- NOTE | 2017-12-01 08:13 | RADIOLOGY REPORT (SQ) ---
EXAM DESCRIPTION: CHEST SINGLE VIEW COMPLETED DATE/TIME: 12/01/2017 8:02 am REASON FOR STUDY: resp failure COMPARISON: 11/30/2017. EXAM PARAMETERS: NUMBER OF VIEWS: One view. TECHNIQUE: Single frontal radiographic view of the chest acquired. RADIATION DOSE: NA LIMITATIONS: None. FINDINGS: LUNGS AND PLEURA: Persistent right basilar infiltrate. Interval development of streaky de nsities left lung base representing left basilar discoid atelectasis. Otherwise lung pereyra clear. MEDIASTINUM AND HILAR STRUCTURES: Hiatal hernia. HEART AND VASCULAR STRUCTURES: The heart is normal with aortic atherosclerosis. BONES: No acute findings. HARDWARE: None in the chest. . OTHER: Chest leads in place. Oxygen mask overlying right chest IMPRESSION: Persistent right basilar infiltrate or pneumonia. Interval development of left basilar discoid atelectasis or infiltrate. TECHNICAL DOCUMENTATION: JOB ID: [id number] [id number] 2010 [employer]- All Rights Reserved
[2017-12-01] MEDS: DILTIAZEM HCL 180 MG CAPSULE.CR PO SCH (09:19)
[2017-12-01] MEDS: FUROSEMIDE 40 MG TABLET PO SCH (09:20)
[2017-12-01] MEDS: FERROUS SULFATE 325 MG TABLET PO SCH (09:20)
[2017-12-01] MEDS: INSULIN LISPRO 100 UNIT/ML 3 ML VIAL SUBCUT PRN ×4 (09:20→23:19)
[2017-12-01] MEDS: DRONEDARONE HYDROCHLORIDE 400 MG TABLET PO SCH ×2 (09:21→21:31)
[2017-12-01] MEDS: LEVOFLOXACIN 500 MG/D5W RTU 500 MG/100 ML RTUPB IV SCH (09:21)
--- NOTE | 2017-12-01 11:44 | PDOC PROGRESS REPORT ---
Subjective Progress Note for:: 12/01/17 Subjective:: Patient still in mild respiratory distress but better than yesterday. Pt is denying any chest arm or neck discomfort. Patient still has significant shortness of breath and on oxygen. Patient denying any PND, orthopnea. Patient denied any sustained palpitations, dizziness, syncope, near syncope. Patient denying any fever chills. Patient denying any other significant discomfort. Patient is maintaining sinus rhythm. Review of systems: Rest review of systems negative. Medications: Medications have been reviewed. Reason For Visit: COPD ACUTE EXCE,AFIB RVR Physical Exam Vital Signs: Temp Pulse Resp BP Pulse Ox 97.5 F 73 19 132/46 H 100 12/01/17 07:47 12/01/17 07:47 12/01/17 07:47 12/01/17 07:47 12/01/17 07:47 Intake & Output 11/30/17 12/01/17 12/02/17 06:59 06:59 06:59 Intake Total 1379 1106 Output Total 2 400 Balance 1377 706 Weight 51.7 kg 52 kg Exam: GENERAL: well-nourished and in mild respiratory distress. Alert and oriented x3 HEAD: Atraumatic, normocephalic. EYES: Pupils equal round and reactive to light, extraocular movements intact, sclera anicteric, conjunctiva are normal. ENT: TMs normal, nares patent, oropharynx clear without exudates. Moist mucous membranes. No oral ulcerations or bleeding gums noted NECK: supple without lymphadenopathy. Trachea is central. No cervical or axillary lymphadenopathy noted. Carotids are 2+, JVD WNL LUNGS: Respiration seems labored, bilateral wheezes rales or rhonchi noted. No significant dullness noted on percussion. CHEST: Palpation of the chest wall shows no significant chest wall tenderness. No other significant abnormalities noted. HEART: [place] [employer]AR, No PSH, 1/6 ROLY aortic area, 1/6 tran systolic murmur mitral area, no rubs, no gallops. ABDOMEN: Soft, no significant tenderness appreciated, normoactive bowel sounds. No guarding, no rebound. No rigidity noted . No masses appreciated. EXTREMITIES: Pedal pulses are 1-2+, no calf tenderness noted. No clubbing or cyanosis.trace to 1+ pedal edema noted NEUROLOGICAL: Focused neurological exam showed no significant neurologic deficit. Normal speech, no focal weakness appreciated. PSYCH: Normal mood, normal affect. Judgment and insight within normal limits. SKIN: No significant ecchymosis, rash, ulcerations or signs of pruritus noted. MUSCULOSKELETAL EXAM: No significant joint swelling noted. Results Laboratory Results: 12/01/17 04:43 12/01/17 04:43 12/01/17 12/01/17 12/01/17 04:43 04:43 06:14 WBC 9.7 RBC 3.04 L Hgb 8.7 L Hct 26.2 L MCV 86 MCH 28.4 MCHC 33.1 RDW 17.8 H Plt Count 224 Seg Neutrophils % Not Reportable Lymphocytes % Not Reportable Monocytes % Not Reportable Eosinophils % Not Reportable Basophils % Not Reportable Absolute Neutrophils Not Reportable Absolute Lymphocytes Not Reportable Absolute Monocytes Not Reportable Absolute Eosinophils Not Reportable Absolute Basophils Not Reportable Carbonic Acid 0.83 L HCO3/H2CO3 Ratio 24:1 ABG pH 7.48 H ABG pCO2 27.6 L ABG pO2 151.7 H ABG HCO3 20.1 ABG O2 Saturation 99.1 H ABG Base Excess -2.7 FiO2 35% Sodium 138.0 Potassium 4.1 Chloride 106 Carbon Dioxide 19 L Anion Gap 13 BUN 88 H D Creatinine 2.35 H Est GFR ( Amer) 24 L Est GFR (Non-Af Amer) 20 L Glucose 233 H Calcium 9.0 Magnesium 2.7 H 11/29/17 06:35 Sputum Gram Stain - Final 11/29/17 06:35 Sputum Sputum Culture - Final Mrsa (Meth Resis Staph Aureus) Reduced Normal Arlette 11/28/17 11/28/17 11/28/17 16:29 16:29 22:57 Creatine Kinase 90 58 CK-MB (CK-2) 2.02 Troponin I 0.033 11/28/17 11/29/17 11/29/17 22:57 05:03 05:03 Creatine Kinase 59 CK-MB (CK-2) 1.27 1.01 Troponin I 0.022 0.019 EKG Comments: Telemetry strips shows sinus rhythm. No sustained tachycardia or bradycardia arrhythmias noted. Impressions: Abdomen/Pelvis CT 11/29/17 00:00 IMPRESSION: No acute findings in the abdomen or pelvis. Chest X-Ray 12/01/17 06:00 IMPRESSION: Persistent right basilar infiltrate or pneumonia. Interval development of left basilar discoid atelectasis or infiltrate. Assessment & Plan - Diagnosis (1) Atrial fibrillation with RVR Is this a current diagnosis for this admission?: Yes (2) Anemia Qualifiers: Anemia type: unspecified type Qualified Code(s): D64.9 - Anemia, unspecified Is this a current diagnosis for this admission?: Yes (3) Asthma exacerbation Qualifiers: Asthma severity: unspecified severity Asthma persistence: persistent Qualified Code(s): J45.901 - Unspecified asthma with (acute) exacerbation Is this a current diagnosis for this admission?: Yes (4) Chronic kidney disease Qualifiers: Chronic kidney disease stage: stage 2 (mild) Qualified Code(s): N18.2 - Chronic kidney disease, stage 2 (mild) Is this a current diagnosis for this admission?: Yes (5) Congestive heart failure Qualifiers: Heart failure type: diastolic Heart failure chronicity: chronic Qualified Code(s): I50.32 - Chronic diastolic (congestive) heart failure Is this a current diagnosis for this admission?: Yes (6) Coronary artery disease Qualifiers: Coronary Disease-Associated Artery/Lesion type: unspecified vessel or lesion type Is this a current diagnosis for this admission?: Yes (7) COPD (chronic obstructive pulmonary disease) Qualifiers: COPD type: unspecified COPD Qualified Code(s): J44.9 - Chronic obstructive pulmonary disease, unspecified Is this a current diagnosis for this admission?: Yes (8) Pneumonia Qualifiers: Pneumonia type: due to unspecified organism Laterality: right Lung location: lower lobe of lung Qualified Code(s): J18.1 - Lobar pneumonia, unspecified organism Is this a current diagnosis for this admission?: Yes - Notes Notes: Patient chest x-ray reviewed. It showed right basal pneumonia. Patient also noted to have some atelectasis. Recommend antibiotic therapy. Patient also noted to have significant COPD. Chest exam suggests that patient may have some underlying emphysema. Patient currently tolerating multaq therapy. We will repeat an EKG to look for any QTC prolongation. Atrial fibrillation with rapid ventricular response: Currently patient in sinus rhythm. It seems patient goes into very rapid ventricular response when she reverts back to atrial fibrillation. Patient seems to be tolerating multaq therapy. Because of her comorbid diagnosis, this is the only medication that can be safely used. Feel that risk benefits favor starting this at this point. Repeat EKG for any QTC prolongation. Will also discuss feasibility of chronic anticoagulation with primary care attending. Dr. Heller will be back tomorrow. CHF: Possibly related to atrial fibrillation. Multaq has been reported to reduce CHF related admission in patients with A. fib. Coronary artery disease: Agree with cycling cardiac enzymes. Currently patient is chest pain-free. She did have significant ST segment depression but is probably rate related. Chronic kidney disease: Currently stable patient being followed by electric clock mechanic. Asthma exacerbation: Continue with bronchodilator and steroid therapy as needed. Patient seems to have severe underlying COPD/asthma. Anemia: Currently stable try maintain hemoglobin above 8 g percent. Again had long discussion with patient's daughter who was in the room. - Time Time with patient: Greater than 35 minutes - CODE STATUS : was discussed, patient remains DO NOT RESUSCITATE. Surrogate decision-maker unchanged. Multiple medical problems were addressed. More than 50% of the time spent coordinating care, discussing management plans with involved caregivers. Management plans discussed with involved personnels. Medical decision making was of moderate to high complexity, patient's has multiple comorbidities. Medications reviewed and adjusted accordingly: Yes
--- NOTE | 2017-12-01 14:51 | PDOC PROGRESS REPORT ---
Subjective Progress Note for:: 12/01/17 Subjective:: Breathing is comparatively better today. Off BiPAP support presently and tolerating nasal cannula supplemental oxygen. No chest pain. No fever or chills. No nausea, vomiting, or abdominal pain. Reason For Visit: COPD ACUTE EXCE,AFIB RVR Physical Exam Vital Signs: Temp Pulse Resp BP Pulse Ox 97.5 F 75 18 132/46 H 95 12/01/17 07:47 12/01/17 12:05 12/01/17 12:05 12/01/17 07:47 12/01/17 12:05 Intake & Output 11/30/17 12/01/17 12/02/17 06:59 06:59 06:59 Intake Total 1379 1106 640 Output Total 2 400 Balance 1377 706 640 Weight 51.7 kg 52 kg Physical Exam: General appearance: PRESENT: mild distress - on BiPAP support presently. Head exam: PRESENT: atraumatic, normocephalic Eye exam: PRESENT: EOMI, PERRLA, other - left subconjunctiva bleed inferior segment. ABSENT: conjunctiva pale Respiratory exam: PRESENT: decreased breath sounds - at lung bases, prolonged expiratory phas Cardiovascular exam: PRESENT: bradycardia, RRR. ABSENT: diastolic murmur, rubs , systolic murmur Vascular exam: PRESENT: normal capillary refill. ABSENT: pallor GI/Abdominal exam: PRESENT: normal bowel sounds, soft. ABSENT: distended, guarding, mass, organomegaly, rebound, tenderness Extremities exam: ABSENT: pedal edema Musculoskeletal exam: PRESENT: deformity - related to multiple joints involvement with arthritis Neurological exam: PRESENT: alert - and appropriate in simple responses, awake, oriented to person, oriented to place, oriented to time, oriented to situation, CN II-XII grossly intact, motor sensory deficit Psychiatric exam: PRESENT: anxious. ABSENT: agitated, appropriate affect, depressed, flat affect, homicidal ideation, manic, normal mood, suicidal ideation, unusual affect, other Skin exam: PRESENT: dry, intact, warm. ABSENT: cyanosis, rash Results Laboratory Results: 12/01/17 04:43 12/01/17 04:43 12/01/17 12/01/17 12/01/17 04:43 04:43 06:14 WBC 9.7 RBC 3.04 L Hgb 8.7 L Hct 26.2 L MCV 86 MCH 28.4 MCHC 33.1 RDW 17.8 H Plt Count 224 Seg Neutrophils % Not Reportable Lymphocytes % Not Reportable Monocytes % Not Reportable Eosinophils % Not Reportable Basophils % Not Reportable Absolute Neutrophils Not Reportable Absolute Lymphocytes Not Reportable Absolute Monocytes Not Reportable Absolute Eosinophils Not Reportable Absolute Basophils Not Reportable Carbonic Acid 0.83 L HCO3/H2CO3 Ratio 24:1 ABG pH 7.48 H ABG pCO2 27.6 L ABG pO2 151.7 H ABG HCO3 20.1 ABG O2 Saturation 99.1 H ABG Base Excess -2.7 FiO2 35% Sodium 138.0 Potassium 4.1 Chloride 106 Carbon Dioxide 19 L Anion Gap 13 BUN 88 H D Creatinine 2.35 H Est GFR ( Amer) 24 L Est GFR (Non-Af Amer) 20 L Glucose 233 H Calcium 9.0 Magnesium 2.7 H 11/29/17 06:35 Sputum Gram Stain - Final 11/29/17 06:35 Sputum Sputum Culture - Final Mrsa (Meth Resis Staph Aureus) Reduced Normal Arlette 11/28/17 11/28/17 11/28/17 16:29 16:29 22:57 Creatine Kinase 90 58 CK-MB (CK-2) 2.02 Troponin I 0.033 11/28/17 11/29/17 11/29/17 22:57 05:03 05:03 Creatine Kinase 59 CK-MB (CK-2) 1.27 1.01 Troponin I 0.022 0.019 Impressions: Abdomen/Pelvis CT 11/29/17 00:00 IMPRESSION: No acute findings in the abdomen or pelvis. Chest X-Ray 12/01/17 06:00 IMPRESSION: Persistent right basilar infiltrate or pneumonia. Interval development of left basilar discoid atelectasis or infiltrate. Assessment & Plan - Diagnosis (1) Acute exacerbation of COPD with asthma Is this a current diagnosis for this admission?: Yes (2) Pneumonia Qualifiers: Pneumonia type: due to unspecified organism Laterality: right Lung location: lower lobe of lung Qualified Code(s): J18.1 - Lobar pneumonia, unspecified organism Is this a current diagnosis for this admission?: Yes (3) Respiratory distress Is this a current diagnosis for this admission?: Yes (4) Atrial fibrillation with RVR Is this a current diagnosis for this admission?: Yes (5) Chronic kidney disease Qualifiers: Chronic kidney disease stage: stage 2 (mild) Qualified Code(s): N18.2 - Chronic kidney disease, stage 2 (mild) Is this a current diagnosis for this admission?: Yes (6) Anemia of chronic disease Is this a current diagnosis for this admission?: Yes - Time Time Spent with patient: 25-34 minutes Medications reviewed and adjusted accordingly: Yes Anticipated discharge: Home with Homehealth Within: Other - Inpatient Certification Based on my medical assessment, after consideration of the patient's comorbidities, presenting symptoms, or acuity I expect that the services needed warrant INPATIENT care.: Yes I certify that my determination is in accordance with my understanding of Medicare's requirements for reasonable and necessary INPATIENT services [42 CFR 412.3e].: Yes Medical Necessity: Need Close Monitoring Due to Risk of Patient Decompensation, Need For IV Fluids, Need For Continuous Telemetry Monitoring, Need for Nebulizer Therapy and Monitoring of Response, Need for IV Antibiotics, Risk of Complication if Not Cared For in Hospital Post Hospital Care: D/C Debate Director Documentation - Plan Summary Plan Summary: See covering attending physician orders.
[2017-12-01] MEDS ORDERED: CLINDAMYCIN 600 MG/D5W RTU 600 MG/50 ML RTUPB IV ONE (15:30)
--- NOTE | 2017-12-01 18:35 | EKG REPORT ---
SEVERITY:- BORDERLINE ECG - SINUS RHYTHM PROBABLE LEFT ATRIAL ABNORMALITY : Confirmed by: Juan Todd 01-Dec-2017 18:34:08
[2017-12-01] MEDS: MONTELUKAST SODIUM 10 MG TABLET PO SCH (21:31)
[2017-12-01] MEDS: CLINDAMYCIN 600 MG/D5W RTU 600 MG/50 ML RTUPB IV SCH (21:31)
[2017-12-02] MEDS: LEVALBUTEROL HCL NEB 0.63 MG/3 ML AMPUL NEB SCH ×7 (00:05→23:50)
[2017-12-02] MEDS: METHYLPREDNISOLONE INJ 125 MG/2 ML SDV IV SCH ×4 (03:58→21:57)
[2017-12-02] MEDS: ACETAMINOPHEN 325 MG TABLET PO PRN ×3 (06:34→22:00)
[2017-12-02] MEDS: HEPARIN SOD (PORCINE) 5,000 UNIT/ML 1 ML SYRINGE SUBCUT SCH ×3 (06:35→21:59)
[2017-12-02] MEDS: GABAPENTIN 400 MG CAPSULE PO SCH ×3 (06:35→21:59)
[2017-12-02] MEDS: CLINDAMYCIN 600 MG/D5W RTU 600 MG/50 ML RTUPB IV SCH ×3 (06:35→21:59)
[2017-12-02] MEDS: LANSOPRAZOLE 15 MG TAB.RAP.DR PO SCH ×2 (06:35→17:32)
[2017-12-02] MEDS: FUROSEMIDE 40 MG TABLET PO SCH (08:14)
[2017-12-02] MEDS: INSULIN LISPRO 100 UNIT/ML 3 ML VIAL SUBCUT PRN ×4 (08:14→21:59)
[2017-12-02] MEDS: BUDESONIDE NEB 0.5 MG/2 ML AMPUL NEB SCH ×2 (08:47→19:41)
[2017-12-02 09:19] LABS: ALANINE AMINOTRANSFERASE 35 U/L (9-52); ALBUMIN 3.4 g/dL (3.5-5.0); ALKALINE PHOSPHATASE 43 U/L (38-126); ANION GAP 13 (5-19); ASPARTATE AMINO TRANSFERASE 17 U/L (14-36); BILIRUBIN,DIRECT 0.4 mg/dL (0.0-0.4); BILIRUBIN,TOTAL 0.4 mg/dL (0.2-1.3); BLOOD UREA NITROGEN 82 mg/dL (7-20); CALCIUM 9.1 mg/dL (8.4-10.2); CARBON DIOXIDE 19 mmol/L (22-30); CHLORIDE 109 mmol/L (98-107); GLUCOSE 338 mg/dL (75-110); LIPASE 1389.2 U/L (23-300); POTASSIUM 3.8 mmol/L (3.6-5.0); SODIUM 141.4 mmol/L (137-145); TOTAL PROTEIN 5.6 g/dL (6.3-8.2)
[2017-12-02] MEDS: LEVOFLOXACIN 500 MG/D5W RTU 500 MG/100 ML RTUPB IV SCH (09:47)
[2017-12-02] MEDS: FERROUS SULFATE 325 MG TABLET PO SCH (09:48)
[2017-12-02] MEDS: SULFAMETHOXAZOLE/TRIMETHOPRIM 800-160 MG TABLET PO SCH (09:48)
[2017-12-02] MEDS: DRONEDARONE HYDROCHLORIDE 400 MG TABLET PO SCH ×2 (09:48→22:01)
[2017-12-02] MEDS: DILTIAZEM HCL 180 MG CAPSULE.CR PO SCH (09:48)
--- NOTE | 2017-12-02 11:33 | RADIOLOGY REPORT (SQ) ---
EXAM DESCRIPTION: CHEST SINGLE VIEW COMPLETED DATE/TIME: 12/02/2017 10:38 am REASON FOR STUDY: pnemonia COMPARISON: None. EXAM PARAMETERS: NUMBER OF VIEWS: One view. TECHNIQUE: Single frontal radiographic view of the chest acquired. RADIATION DOSE: NA LIMITATIONS: None. FINDINGS: LUNGS AND PLEURA: There is infiltrate noted at the right lung base consistent with right b asilar pneumonia. Residual linear densities left lung base consistent with discoid atelectasis. MEDIASTINUM AND HILAR STRUCTURES: No masses. Contour normal. HEART AND VASCULAR STRUCTURES: The heart is unchanged in size with aortic atherosclerosis. Pulmonary vasculature is normal. BONES: Subcoracoid dislocation of the left shoulder. Degenerative arthritis right shoulder. HARDWARE: None in the chest. OTHER: Chest leads in place. IMPRESSION: Right basilar infiltrate or atelectasis. Left basilar scarring. TECHNICAL DOCUMENTATION: JOB ID: [id number] [id number] 2010 [employer]- All Rights Reserved
--- NOTE | 2017-12-02 12:35 | PDOC PROGRESS REPORT ---
Subjective Progress Note for:: 12/02/17 Subjective:: Patient showing slow gradual improvement. Patient still in mild respiratory distress but better than yesterday. Pt is denying any chest arm or neck discomfort. Patient still has significant shortness of breath and on oxygen. Patient denying any PND, orthopnea. Patient denied any sustained palpitations, dizziness, syncope, near syncope. Patient denying any fever chills. Patient denying any other significant discomfort. Patient is maintaining sinus rhythm. Review of systems: Rest review of systems negative. Medications: Medications have been reviewed. Reason For Visit: COPD ACUTE EXCE,AFIB RVR Physical Exam Vital Signs: Temp Pulse Resp BP Pulse Ox 98.3 F 80 12 121/54 L 99 12/02/17 11:47 12/02/17 11:50 12/02/17 11:50 12/02/17 11:47 12/02/17 11:50 Intake & Output 12/01/17 12/02/17 12/03/17 06:59 06:59 06:59 Intake Total 1106 1710 200 Output Total 400 Balance 706 1710 200 Weight 52 kg 51.3 kg Exam: GENERAL: well-nourished and in no acute distress. Alert and oriented x3 HEAD: Atraumatic, normocephalic. EYES: Pupils equal round and reactive to light, extraocular movements intact, sclera anicteric, conjunctiva are normal. ENT: TMs normal, nares patent, oropharynx clear without exudates. Moist mucous membranes. No oral ulcerations or bleeding gums noted NECK: supple without lymphadenopathy. Trachea is central. No cervical or axillary lymphadenopathy noted. Carotids are 2+, JVD WNL LUNGS: Respiration seems nonlabored, no significant accessory muscle action noted. Bilateral mild wheezes rales or rhonchi noted. No significant dullness noted on percussion. CHEST: Palpation of the chest wall shows no significant chest wall tenderness. No other significant abnormalities noted. HEART: [place] LA[employer] IR[employer]ER, No PSH, 1/6 ROLY aortic area, 1/6 tran systolic murmur mitral area, no rubs, no gallops. ABDOMEN: Soft, no significant tenderness appreciated, normoactive bowel sounds. No guarding, no rebound. No rigidity noted . No masses appreciated. EXTREMITIES: Pedal pulses are 1-2+, no calf tenderness noted. No clubbing or cyanosis.trace pedal edema noted NEUROLOGICAL: Focused neurological exam showed no significant neurologic deficit. Normal speech, no focal weakness appreciated. PSYCH: Normal mood, normal affect. Judgment and insight within normal limits. SKIN: No significant ecchymosis, rash, ulcerations or signs of pruritus noted. MUSCULOSKELETAL EXAM: No significant joint swelling noted. Results Laboratory Results: 12/01/17 04:43 12/02/17 08:43 12/02/17 08:43 Sodium 141.4 Potassium 3.8 Chloride 109 H Carbon Dioxide 19 L Anion Gap 13 BUN 82 H Creatinine 2.07 H Est GFR ( Amer) 28 L Est GFR (Non-Af Amer) 23 L Glucose 338 H Calcium 9.1 Total Bilirubin 0.4 AST 17 ALT 35 Alkaline Phosphatase 43 Total Protein 5.6 L Albumin 3.4 L Lipase 1389.2 H 11/29/17 06:35 Sputum Gram Stain - Final 11/29/17 06:35 Sputum Sputum Culture - Final Mrsa (Meth Resis Staph Aureus) Reduced Normal Arlette 11/28/17 11/28/17 11/28/17 16:29 16:29 22:57 Creatine Kinase 90 58 CK-MB (CK-2) 2.02 Troponin I 0.033 11/28/17 11/29/17 11/29/17 22:57 05:03 05:03 Creatine Kinase 59 CK-MB (CK-2) 1.27 1.01 Troponin I 0.022 0.019 EKG Comments: Telemetry shows sinus rhythm without any sustained tacky or bradycardia arrhythmias. Impressions: Abdomen/Pelvis CT 11/29/17 00:00 IMPRESSION: No acute findings in the abdomen or pelvis. Chest X-Ray 12/02/17 00:00 IMPRESSION: Right basilar infiltrate or atelectasis. Left basilar scarring. Assessment & Plan - Diagnosis (1) Atrial fibrillation with RVR Is this a current diagnosis for this admission?: Yes (2) Anemia Qualifiers: Anemia type: unspecified type Qualified Code(s): D64.9 - Anemia, unspecified Is this a current diagnosis for this admission?: Yes (3) Asthma exacerbation Qualifiers: Asthma severity: unspecified severity Asthma persistence: persistent Qualified Code(s): J45.901 - Unspecified asthma with (acute) exacerbation Is this a current diagnosis for this admission?: Yes (4) Chronic kidney disease Qualifiers: Chronic kidney disease stage: stage 2 (mild) Qualified Code(s): N18.2 - Chronic kidney disease, stage 2 (mild) Is this a current diagnosis for this admission?: Yes (5) Congestive heart failure Qualifiers: Heart failure type: diastolic Heart failure chronicity: chronic Qualified Code(s): I50.32 - Chronic diastolic (congestive) heart failure Is this a current diagnosis for this admission?: Yes (6) Coronary artery disease Qualifiers: Coronary Disease-Associated Artery/Lesion type: unspecified vessel or lesion type Is this a current diagnosis for this admission?: Yes (7) COPD (chronic obstructive pulmonary disease) Qualifiers: COPD type: unspecified COPD Qualified Code(s): J44.9 - Chronic obstructive pulmonary disease, unspecified Is this a current diagnosis for this admission?: Yes (8) Pneumonia Qualifiers: Pneumonia type: due to unspecified organism Laterality: right Lung location: lower lobe of lung Qualified Code(s): J18.1 - Lobar pneumonia, unspecified organism Is this a current diagnosis for this admission?: Yes - Notes Notes: Atrial fibrillation with rapid ventricular response: Currently patient in sinus rhythm. It seems patient goes into very rapid ventricular response when she reverts back to atrial fibrillation. Patient seems to be tolerating multaq therapy. Because of her comorbid diagnosis, this is the only medication that can be safely used. All EKGs reviewed. No significant QTC prolongation noted. Will also discuss feasibility of chronic anticoagulation with primary care attending. Patient at best is felt a borderline candidate as has bled score is probably high. CHF: Possibly related to atrial fibrillation. Multaq has been reported to reduce CHF related admission in patients with A. fib. Coronary artery disease: Currently stable without any angina or angina equivalent symptoms Chronic kidney disease: Currently stable patient being followed by entry level paralegal. Asthma exacerbation: Continue with bronchodilator and steroid therapy as needed. Patient seems to have severe underlying COPD/asthma. Anemia: Currently stable try maintain hemoglobin above 8 g percent. Anxiety disorder: Patient may benefit from SSRI agent. Patient placed on as needed Xanax. - Time Time with patient: 15-25 minutes - CODE STATUS was discussed, patient remains full code. Surrogate decision-maker unchanged. Multiple medical problems were addressed. More than 50% of the time spent coordinating care, discussing management plans with involved caregivers. Management plans discussed with involved personnels. Medical decision making was of moderate to high complexity , patient's has multiple comorbidities. Medications reviewed and adjusted accordingly: Yes
--- NOTE | 2017-12-02 12:37 | PDOC PROGRESS REPORT ---
Subjective Progress Note for:: 12/02/17 Subjective:: Patient is currently doing fair In the week and patient's noticed more short of breath requiring BiPAP and increase her Solu-Medrol currently the nasal cannula feeling better She is complaining some abdominal discomfort especially in the lower abdominal area with the patient CT abdomen and pelvis was done last week was all stable with some mild elevated lipase Patient's denied any chest pain denied any nausea no vomiting Reason For Visit: COPD ACUTE EXCE,AFIB RVR Physical Exam Vital Signs: Temp Pulse Resp BP Pulse Ox 98.3 F 80 12 121/54 L 99 12/02/17 11:47 12/02/17 11:50 12/02/17 11:50 12/02/17 11:47 12/02/17 11:50 Intake & Output 12/01/17 12/02/17 12/03/17 06:59 06:59 06:59 Intake Total 1106 1710 200 Output Total 400 Balance 706 1710 200 Weight 52 kg 51.3 kg General appearance: PRESENT: no acute distress, well-developed, well-nourished Head exam: PRESENT: atraumatic, normocephalic Eye exam: PRESENT: conjunctiva pink, EOMI, PERRLA. ABSENT: scleral icterus Ear exam: PRESENT: normal external ear exam Mouth exam: PRESENT: moist, tongue midline Neck exam: PRESENT: full ROM. ABSENT: carotid bruit, JVD, lymphadenopathy, thyromegaly Respiratory exam: PRESENT: decreased breath sounds, wheezes Cardiovascular exam: PRESENT: RRR. ABSENT: diastolic murmur, rubs, systolic murmur Pulses: PRESENT: normal dorsalis pedis pul, +2 pedal pulses bilateral Vascular exam: PRESENT: normal capillary refill GI/Abdominal exam: PRESENT: normal bowel sounds, soft. ABSENT: distended, guarding, mass, organolmegaly, rebound, tenderness Rectal exam: PRESENT: deferred Extremities exam: ABSENT: pedal edema Neurological exam: PRESENT: alert, awake, oriented to person, oriented to place , oriented to time, oriented to situation, CN II-XII grossly intact. ABSENT: motor sensory deficit Psychiatric exam: PRESENT: appropriate affect, normal mood. ABSENT: homicidal ideation, suicidal ideation Skin exam: PRESENT: dry, intact, warm. ABSENT: cyanosis, rash Results Laboratory Results: 12/01/17 04:43 12/02/17 08:43 12/02/17 08:43 Sodium 141.4 Potassium 3.8 Chloride 109 H Carbon Dioxide 19 L Anion Gap 13 BUN 82 H Creatinine 2.07 H Est GFR ( Amer) 28 L Est GFR (Non-Af Amer) 23 L Glucose 338 H Calcium 9.1 Total Bilirubin 0.4 AST 17 ALT 35 Alkaline Phosphatase 43 Total Protein 5.6 L Albumin 3.4 L Lipase 1389.2 H 11/29/17 06:35 Sputum Gram Stain - Final 11/29/17 06:35 Sputum Sputum Culture - Final Mrsa (Meth Resis Staph Aureus) Reduced Normal Arlette 11/28/17 11/28/17 11/28/17 16:29 16:29 22:57 Creatine Kinase 90 58 CK-MB (CK-2) 2.02 Troponin I 0.033 11/28/17 11/29/17 11/29/17 22:57 05:03 05:03 Creatine Kinase 59 CK-MB (CK-2) 1.27 1.01 Troponin I 0.022 0.019 Impressions: Abdomen/Pelvis CT 11/29/17 00:00 IMPRESSION: No acute findings in the abdomen or pelvis. Chest X-Ray 12/02/17 00:00 IMPRESSION: Right basilar infiltrate or atelectasis. Left basilar scarring. Assessment & Plan - Diagnosis (1) Asthma exacerbation Qualifiers: Qualified Code(s): J45.901 - Unspecified asthma with (acute) exacerbation Is this a current diagnosis for this admission?: Yes Plan: Start the patient on Xopenex nebulizer increase the steroid (2) Respiratory distress Is this a current diagnosis for this admission?: Yes Plan: Due to the above conditions we will consult the pulmonary for the patient's have a significant history of the pulmonary disease and patient's already seen by Dr. Patino's last week (3) Atrial fibrillation with RVR Is this a current diagnosis for this admission?: Yes Plan: Currently switched to the p.o. Cardizem (4) Pneumonia Qualifiers: Qualified Code(s): J18.1 - Lobar pneumonia, unspecified organism Is this a current diagnosis for this admission?: Yes Plan: With MRSA continues to clindamycin's and current other medications (5) Congestive heart failure Qualifiers: Qualified Code(s): I50.32 - Chronic diastolic (congestive) heart failure Is this a current diagnosis for this admission?: Yes Plan: Continues to Lasix (6) Coronary artery disease Is this a current diagnosis for this admission?: Yes Plan: Currently all stable (7) Anemia Qualifiers: Qualified Code(s): D64.9 - Anemia, unspecified Is this a current diagnosis for this admission?: Yes Plan: We consult to Dr. Bal for further evaluations patient already seen by Dr. Bal in the past (8) Chronic kidney disease Qualifiers: Qualified Code(s): N18.2 - Chronic kidney disease, stage 2 (mild) Is this a current diagnosis for this admission?: Yes Plan: Consult the nephrology for further evaluations well patient already have appointment to see him yesterday as outpatient with the worsening the kidney function since last several months (9) Osteoarthritis Is this a current diagnosis for this admission?: Yes (10) Addisons disease Is this a current diagnosis for this admission?: Yes Plan: Continues IV steroid - Time Time Spent with patient: 15-24 minutes Medications reviewed and adjusted accordingly: Yes Anticipated discharge: Other Within: Other - Inpatient Certification Medical Necessity: Need Close Monitoring Due to Risk of Patient Decompensation, Need for IV Antibiotics Post Hospital Care: D/C Customer Development Representative Documentation - Plan Summary Plan Summary: Discussed with the daughter and the patient about the patient's current conditions with the positive MRSA culture Patient's lipase is elevated most likely a nonspecific but with some abdominal symptoms will consult GI for further evaluations with ongoing anemia Follow with the pulmonary and nephrology
--- NOTE | 2017-12-02 17:01 | PDOC PROGRESS REPORT ---
Subjective Progress Note for:: 12/02/17 Reason For Visit: Seen today. She is in some respiratory difficulty and Dr Heller has ordered extra nebs and added steroids. She is still coughing up. No c/o chest pains, fever or chills. Labs and medications were reviewed at bedside with daughter. Physical Exam Vital Signs: Temp Pulse Resp BP Pulse Ox 98.3 F 83 12 121/54 L 99 12/02/17 11:47 12/02/17 14:00 12/02/17 11:50 12/02/17 11:47 12/02/17 11:50 Intake & Output 12/01/17 12/02/17 12/03/17 06:59 06:59 06:59 Intake Total 1106 1710 200 Output Total 400 Balance 706 1710 200 Weight 52 kg 51.3 kg General appearance: PRESENT: mild distress Respiratory exam: PRESENT: clear to auscultation koko - harsh vesicular, decreased breath sounds, prolonged expiratory phas, rhonchi, tachypnea Cardiovascular exam: PRESENT: +S1, +S2 GI/Abdominal exam: PRESENT: normal bowel sounds, soft. ABSENT: distended, firm , organomegaly, tenderness Extremities exam: ABSENT: pedal edema Neurological exam: PRESENT: alert, awake, oriented to person, oriented to place Results Laboratory Results: 12/01/17 04:43 12/02/17 08:43 12/02/17 08:43 Sodium 141.4 Potassium 3.8 Chloride 109 H Carbon Dioxide 19 L Anion Gap 13 BUN 82 H Creatinine 2.07 H Est GFR ( Amer) 28 L Est GFR (Non-Af Amer) 23 L Glucose 338 H Calcium 9.1 Total Bilirubin 0.4 AST 17 ALT 35 Alkaline Phosphatase 43 Total Protein 5.6 L Albumin 3.4 L Lipase 1389.2 H 11/28/17 11/28/17 11/28/17 16:29 16:29 22:57 Creatine Kinase 90 58 CK-MB (CK-2) 2.02 Troponin I 0.033 11/28/17 11/29/17 11/29/17 22:57 05:03 05:03 Creatine Kinase 59 CK-MB (CK-2) 1.27 1.01 Troponin I 0.022 0.019 Impressions: Abdomen/Pelvis CT 11/29/17 00:00 IMPRESSION: No acute findings in the abdomen or pelvis. Chest X-Ray 12/02/17 00:00 IMPRESSION: Right basilar infiltrate or atelectasis. Left basilar scarring. Assessment & Plan - Diagnosis (1) DIONNE (acute kidney injury) Plan: Non Oliguric. Relatively stable. (2) CKD stage 3 due to type 1 diabetes mellitus Plan: Likely from underlying diabetic nephropathy. Currently she has acute kidney injury from her present issues of pneumonia and congestive heart failure. Will continue on current medications and monitor.I talked about CIRCUS ARTIST and she and daughter are leaning towards no renal interventions and I agree with that decision as I believes she will do poorly on HD. (3) Anemia Qualifiers: Anemia type: unspecified type Qualified Code(s): D64.9 - Anemia, unspecified Is this a current diagnosis for this admission?: Yes Plan: Likely of chronic kidney disease. However yosef order iron studies. Monitor. (4) Atrial fibrillation with RVR Is this a current diagnosis for this admission?: Yes Plan: Aluminum Can Collector managing (5) Congestive heart failure Qualifiers: Heart failure type: diastolic Heart failure chronicity: chronic Qualified Code(s): I50.32 - Chronic diastolic (congestive) heart failure Is this a current diagnosis for this admission?: Yes Plan: Relatively stable. Monitor. Continue present medications. (6) Pneumonia Qualifiers: Pneumonia type: due to unspecified organism Laterality: right Lung location: lower lobe of lung Qualified Code(s): J18.1 - Lobar pneumonia, unspecified organism Is this a current diagnosis for this admission?: Yes Plan: On IV antibiotics. (7) Respiratory distress Is this a current diagnosis for this admission?: Yes Plan: Respiratory failure from a combination of pneumonia and congestive heart failure and infective exacerbation of COPD.She is a DNR.
[2017-12-02] MEDS: MONTELUKAST SODIUM 10 MG TABLET PO SCH (22:00)
[2017-12-02] MEDS: ALPRAZOLAM 0.25 MG TABLET PO PRN (22:01)
[2017-12-03] MEDS: METHYLPREDNISOLONE INJ 125 MG/2 ML SDV IV SCH (03:44)
[2017-12-03] MEDS: LEVALBUTEROL HCL NEB 0.63 MG/3 ML AMPUL NEB SCH ×5 (04:13→20:05)
[2017-12-03] MEDS: LANSOPRAZOLE 15 MG TAB.RAP.DR PO SCH ×2 (05:15→16:24)
[2017-12-03] MEDS: GABAPENTIN 400 MG CAPSULE PO SCH ×3 (05:15→20:55)
[2017-12-03] MEDS: CLINDAMYCIN 600 MG/D5W RTU 600 MG/50 ML RTUPB IV SCH ×3 (05:16→20:55)
[2017-12-03] MEDS: HEPARIN SOD (PORCINE) 5,000 UNIT/ML 1 ML SYRINGE SUBCUT SCH ×2 (05:16→13:32)
[2017-12-03 07:16] LABS: ABSOLUTE RETICS # 0.059 10^6/uL (0.028-0.122); HEMATOCRIT 25.6 % (36.0-47.0); HEMOGLOBIN 8.3 g/dL (12.0-15.5); MEAN CORPUSCULAR HEMOGLOBIN 28.3 pg (27.0-33.4); MEAN CORPUSCULAR HGB CONC 32.6 g/dL (32.0-36.0); MEAN CORPUSCULAR VOLUME 87 fl (80-97); PLATELET COUNT 177 10^3/uL (150-450); RED BLOOD COUNT 2.95 10^6/uL (3.72-5.28); RED CELL DISTRIBUTION WIDTH 17.8 % (11.5-14.0); RETICULOCYTE COUNT (AUTO) 1.98 % (0.66-2.85); WHITE BLOOD COUNT 7.8 10^3/uL (4.0-10.5)
[2017-12-03 07:24] LABS: ANION GAP 12 (5-19); BLOOD UREA NITROGEN 77 mg/dL (7-20); CALCIUM 8.5 mg/dL (8.4-10.2); CARBON DIOXIDE 22 mmol/L (22-30); CHLORIDE 110 mmol/L (98-107); GLUCOSE 379 mg/dL (75-110); IRON(TIBC) 69.5 ug/dL (37-170); POTASSIUM 3.6 mmol/L (3.6-5.0); SODIUM 144.4 mmol/L (137-145)
[2017-12-03] MEDS: BUDESONIDE NEB 0.5 MG/2 ML AMPUL NEB SCH ×2 (07:36→20:05)
[2017-12-03] MEDS ORDERED: METHYLPREDNISOLONE INJ 125 MG/2 ML SDV IV SCH (07:54)
[2017-12-03 07:55] LABS: ABSOLUTE LYMPHOCYTES# (MANUAL) 0.4 10^3/uL (0.5-4.7); ABSOLUTE NEUTROPHILS# (MANUAL) 7.4 10^3/uL (1.7-8.2); ANISOCYTOSIS 1+; BAND NEUTROPHILS % (MANUAL) 2 % (3-5); BASOPHILS % (MANUAL) 0 % (0-2); EOSINOPHILS % (MANUAL) 0 % (0-6); LYMPHOCYTES % (MANUAL) 4 % (13-45); MONOCYTES % (MANUAL) 0 % (3-13); POIKILOCYTOSIS 1+; SEGMENTED NEUTROPHILS % (MAN) 93 % (42-78); TOTAL CELLS COUNTED 100
[2017-12-03 07:56] LABS: OVALOCYTES 1+; PLATELET COMMENT ADEQUATE; TEAR DROP CELLS SLIGHT
[2017-12-03] MEDS: INSULIN LISPRO 100 UNIT/ML 3 ML VIAL SUBCUT PRN ×4 (07:57→22:42)
[2017-12-03] MEDS: FUROSEMIDE 40 MG TABLET PO SCH (07:57)
--- NOTE | 2017-12-03 09:20 | PDOC PROGRESS REPORT ---
Subjective Progress Note for:: 12/03/17 Subjective:: Patient is currently doing same denied any chest pain denied any shortness of the breath pt is a little upset because of physical therapy did not come yesterday and patients wants to out of the bed Reason For Visit: COPD ACUTE EXCE,AFIB RVR Physical Exam Vital Signs: Temp Pulse Resp BP Pulse Ox 97.5 F 77 18 118/54 L 97 12/03/17 04:20 12/03/17 07:37 12/03/17 07:37 12/03/17 04:20 12/03/17 07:37 Intake & Output 12/02/17 12/03/17 12/04/17 06:59 06:59 06:59 Intake Total 1710 1225 Balance 1710 1225 Weight 51.3 kg 51 kg General appearance: PRESENT: no acute distress, well-developed, well-nourished Head exam: PRESENT: atraumatic, normocephalic Eye exam: PRESENT: conjunctiva pink, EOMI, PERRLA. ABSENT: scleral icterus Ear exam: PRESENT: normal external ear exam Mouth exam: PRESENT: moist, tongue midline Neck exam: PRESENT: full ROM. ABSENT: carotid bruit, JVD, lymphadenopathy, thyromegaly Respiratory exam: PRESENT: wheezes Cardiovascular exam: PRESENT: RRR. ABSENT: diastolic murmur, rubs, systolic murmur Pulses: PRESENT: normal dorsalis pedis pul, +2 pedal pulses bilateral Vascular exam: PRESENT: normal capillary refill GI/Abdominal exam: PRESENT: normal bowel sounds, soft. ABSENT: distended, guarding, mass, organolmegaly, rebound, tenderness Rectal exam: PRESENT: deferred Extremities exam: ABSENT: pedal edema Neurological exam: PRESENT: alert, awake, oriented to person, oriented to place , oriented to time, oriented to situation, CN II-XII grossly intact. ABSENT: motor sensory deficit Psychiatric exam: PRESENT: appropriate affect, normal mood. ABSENT: homicidal ideation, suicidal ideation Skin exam: PRESENT: dry, intact, warm. ABSENT: cyanosis, rash Results Laboratory Results: 12/03/17 07:02 12/03/17 07:02 12/02/17 12/03/17 12/03/17 08:43 07:02 07:02 WBC 7.8 RBC 2.95 L Hgb 8.3 L Hct 25.6 L MCV 87 MCH 28.3 MCHC 32.6 RDW 17.8 H Plt Count 177 Seg Neutrophils % Not Reportable Lymphocytes % Not Reportable Monocytes % Not Reportable Eosinophils % Not Reportable Basophils % Not Reportable Absolute Neutrophils Not Reportable Absolute Lymphocytes Not Reportable Absolute Monocytes Not Reportable Absolute Eosinophils Not Reportable Absolute Basophils Not Reportable Retic Count (auto) 1.98 Absolute Retic 0.059 Sodium 141.4 144.4 Potassium 3.8 3.6 Chloride 109 H 110 H Carbon Dioxide 19 L 22 Anion Gap 13 12 BUN 82 H 77 H Creatinine 2.07 H 1.83 H Est GFR ( Amer) 28 L 32 L Est GFR (Non-Af Amer) 23 L 27 L Glucose 338 H 379 H Calcium 9.1 8.5 Iron 69.5 TIBC 271 % Saturation 26 Ferritin 62.40 Total Bilirubin 0.4 AST 17 ALT 35 Alkaline Phosphatase 43 Total Protein 5.6 L Albumin 3.4 L Lipase 1389.2 H Vitamin B12 778.0 Folate 14.30 11/28/17 11/28/17 11/28/17 16:29 16:29 22:57 Creatine Kinase 90 58 CK-MB (CK-2) 2.02 Troponin I 0.033 11/28/17 11/29/17 11/29/17 22:57 05:03 05:03 Creatine Kinase 59 CK-MB (CK-2) 1.27 1.01 Troponin I 0.022 0.019 Impressions: Abdomen/Pelvis CT 11/29/17 00:00 IMPRESSION: No acute findings in the abdomen or pelvis. Chest X-Ray 12/02/17 00:00 IMPRESSION: Right basilar infiltrate or atelectasis. Left basilar scarring. Assessment & Plan - Diagnosis (1) Asthma exacerbation Qualifiers: Asthma severity: unspecified severity Asthma persistence: persistent Qualified Code(s): J45.901 - Unspecified asthma with (acute) exacerbation Is this a current diagnosis for this admission?: Yes Plan: Reduce the IV steroid continues to current medications follow with the pulmonary (2) Respiratory distress Is this a current diagnosis for this admission?: Yes Plan: Due to the above conditions we will consult the pulmonary for the patient's have a significant history of the pulmonary disease and patient's already seen by Dr. Patino's last week (3) Atrial fibrillation with RVR Is this a current diagnosis for this admission?: Yes Plan: Currently switched to the p.o. Cardizem (4) Pneumonia Qualifiers: Pneumonia type: due to unspecified organism Laterality: right Lung location: lower lobe of lung Qualified Code(s): J18.1 - Lobar pneumonia, unspecified organism Is this a current diagnosis for this admission?: Yes Plan: With MRSA continues to clindamycin's and current other medications (5) Congestive heart failure Qualifiers: Heart failure type: diastolic Heart failure chronicity: chronic Qualified Code(s): I50.32 - Chronic diastolic (congestive) heart failure Is this a current diagnosis for this admission?: Yes Plan: Continues to Lasix (6) Coronary artery disease Qualifiers: Coronary Disease-Associated Artery/Lesion type: unspecified vessel or lesion type Is this a current diagnosis for this admission?: Yes Plan: Currently all stable (7) Anemia Qualifiers: Anemia type: unspecified type Qualified Code(s): D64.9 - Anemia, unspecified Is this a current diagnosis for this admission?: Yes Plan: We consult to Dr. Bal for further evaluations patient already seen by Dr. Bal in the past (8) Chronic kidney disease Qualifiers: Chronic kidney disease stage: stage 2 (mild) Qualified Code(s): N18.2 - Chronic kidney disease, stage 2 (mild) Is this a current diagnosis for this admission?: Yes Plan: Currently improving the kidney functions (9) Osteoarthritis Qualifiers: Laterality: unspecified laterality Is this a current diagnosis for this admission?: Yes (10) Addisons disease Is this a current diagnosis for this admission?: Yes Plan: Continues IV steroid - Time Time Spent with patient: 15-24 minutes Medications reviewed and adjusted accordingly: Yes Anticipated discharge: Home Within: Other - Inpatient Certification Medical Necessity: Need Close Monitoring Due to Risk of Patient Decompensation, Need for IV Antibiotics Post Hospital Care: D/C Extra Hand Documentation - Plan Summary Plan Summary: Discussed with the patient and the daughter on the bedside and discussed with the nursing staff to the physical therapy to evaluate the patient and then after patient start ambulating as tolerated with fall precautions
[2017-12-03] MEDS: METHYLPREDNISOLONE INJ 40 MG/1 ML SDV IV SCH ×3 (11:02→20:55)
[2017-12-03] MEDS: FERROUS SULFATE 325 MG TABLET PO SCH (11:03)
[2017-12-03] MEDS: LEVOFLOXACIN 500 MG/D5W RTU 500 MG/100 ML RTUPB IV SCH (11:04)
[2017-12-03] MEDS: DRONEDARONE HYDROCHLORIDE 400 MG TABLET PO SCH ×2 (11:04→20:55)
[2017-12-03] MEDS: DILTIAZEM HCL 180 MG CAPSULE.CR PO SCH (11:07)
[2017-12-03] MEDS: ACETAMINOPHEN 325 MG TABLET PO PRN (11:09)
[2017-12-03] MEDS ORDERED: LOPERAMIDE HCL 2 MG CAPSULE PO PRN (13:28)
--- NOTE | 2017-12-03 13:50 | PDOC CONSULTATION ---
Consultation Consult Date: 12/03/17 Attending physician:: PATRICIA ANGEL Consult reason:: History of ulcerative colitis. has had colectomy in the past. diarrhea. anemia. gastric ulcers in the past History of Present Illness Admission Date/PCP: 11/28/17 15:30 KEILY CHRISTIANSON MD History of Present Illness: I am asked to see this patient for a GI work up she recently moved to the area patient was admitted by Dr Christianson has anemia patient generally not a good historian has to be prompted to provide answers patient had partial colectomy in the past was told that she had ulcerative colitis, not been treated came in with complaints of diarrhea and noted to have anemia started on antibiotics, diarrhea is worse send for C.Diff patient also now states that has gastric ulcers in the past has not had any GI follow up for many years work up for anemia is requested she will need EGD and a colonoscopy she will need Propofol sedation Past Medical History Cardiac Medical History: Reports: Atrial Fibrillation, Congestive Heart Failure , Coronary Artery Disease, Hyperlipidema, Hypertension Pulmonary Medical History: Reports: Asthma, Bronchitis, Pneumonia Endocrine Medical History: Reports: Diabetes Mellitus Type 2 Renal/ Medical History: Reports: Chronic Kidney Disease GI Medical History: Reports: Gastroesophageal Reflux Disease, Hiatal Hernia Musculoskeltal Medical History: Reports: Arthritis Psychiatric Medical History: Reports: Depression Hematology: Reports: Anemia Past Surgical History Past Surgical History: Reports: Appendectomy Social History Lives with: Family Smoking Status: Never Smoker Frequency of Alcohol Use: None Hx Recreational Drug Use: No Hx Prescription Drug Abuse: No - Advance Directive Resuscitation Status: Do Not Resuscitate Family History Family History: Reviewed & Not Pertinent Parental Family History Reviewed: Yes Children Family History Reviewed: Unknown Sibling(s) Family History Reviewed.: Unknown Medication/Allergy Home Medications: Diltiazem HCl [Cartia Xt] 300 mg PO DAILY 11/28/17 Ferrous Sulfate [Feosol 325 mg Tablet] 325 mg PO DAILY 11/28/17 Furosemide [Lasix 40 mg Tablet] 40 mg PO QAM 11/28/17 Gabapentin [Neurontin] 800 mg PO Q8 11/28/17 Insulin Aspart Prot/Insuln Asp [Novolog Mix 70-30 Vial] 15 unit SQ QHS 11/28/17 Insulin Aspart Prot/Insuln Asp [Novolog Mix 70-30 Vial] 30 unit SQ DAILY Ipratropium/Albuterol Sulfate [Duoneb 3 ml Ampul] 3 ml NEB RTQ8HP PRN 11/28/17 Levalbuterol HCl [Xopenex Neb 0.63 mg/3 ml Ampul] 1 vial NEB Q8HP PRN 11/28/17 Omeprazole 20 mg PO BID 11/28/17 Prednisone [Deltasone 20 mg Tablet] 20 mg PO DAILY 11/28/17 Sulfamethoxazole/Trimethoprim [Bactrim 400-80 mg Tablet] 1 tab PO MOWEFR@1000 Allergies/Adverse Reactions: aspirin [Aspirin] Allergy (Verified 11/25/17 15:43) colchicine Allergy (Verified 11/28/17 15:56) iodine Allergy (Verified 11/28/17 15:56) Penicillins Allergy (Verified 11/25/17 15:43) Hives shellfish derived Allergy (Verified 11/28/17 15:56) Review of Systems Constitutional: ABSENT: fever(s), headache(s), night sweats, weakness Eyes: ABSENT: visual disturbances Ears: ABSENT: hearing changes Nose, Mouth, and Throat: ABSENT: mouth pain, sore throat Cardiovascular: PRESENT: orthropnea Respiratory: PRESENT: dyspnea. ABSENT: hemoptysis Gastrointestinal: PRESENT: diarrhea Genitourinary: ABSENT: dysuria, hematuria Musculoskeletal: ABSENT: deformity Integumentary: ABSENT: lesions, pruritus Neurological: ABSENT: syncope, tingling, tremor(s), vertigo Endocrine: ABSENT: polydipsia, polyphagia, polyuria Physical Exam Vital Signs: Temp Pulse Resp BP Pulse Ox 97.7 F 86 16 134/48 H 98 12/03/17 10:42 12/03/17 12:11 12/03/17 12:11 12/03/17 10:42 12/03/17 12:11 Intake & Output 12/02/17 12/03/17 12/04/17 06:59 06:59 06:59 Intake Total 1710 1225 Balance 1710 1225 Weight 51.3 kg 51 kg General appearance: PRESENT: mild distress, well-developed, well-nourished Head exam: PRESENT: atraumatic, normocephalic Eye exam: PRESENT: EOMI, PERRLA. ABSENT: nystagmus, periorbital swelling, scleral icterus Mouth exam: PRESENT: moist, neck supple Throat exam: ABSENT: tonsillar exudate, tonsillogmegaly Neck exam: ABSENT: meningismus, tenderness, thyromegaly Respiratory exam: PRESENT: symmetrical, unlabored. ABSENT: tachypnea, wheezes Cardiovascular exam: PRESENT: irregular rhythm, +S1, +S2 GI/Abdominal exam: PRESENT: soft. ABSENT: rebound, rigid, tenderness Extremities exam: ABSENT: joint swelling Musculoskeletal exam: PRESENT: full ROM Neurological exam: PRESENT: oriented to time, oriented to situation, CN II-XII grossly intact Focused psych exam: ABSENT: restlessness Skin exam: PRESENT: normal color. ABSENT: mottled, pallor, petechiae, urticaria , vesicles Results Laboratory Results: 12/03/17 07:02 12/03/17 07:02 12/03/17 12/03/17 07:02 07:02 WBC 7.8 RBC 2.95 L Hgb 8.3 L Hct 25.6 L MCV 87 MCH 28.3 MCHC 32.6 RDW 17.8 H Plt Count 177 Seg Neutrophils % Not Reportable Lymphocytes % Not Reportable Monocytes % Not Reportable Eosinophils % Not Reportable Basophils % Not Reportable Absolute Neutrophils Not Reportable Absolute Lymphocytes Not Reportable Absolute Monocytes Not Reportable Absolute Eosinophils Not Reportable Absolute Basophils Not Reportable Retic Count (auto) 1.98 Absolute Retic 0.059 Sodium 144.4 Potassium 3.6 Chloride 110 H Carbon Dioxide 22 Anion Gap 12 BUN 77 H Creatinine 1.83 H Est GFR ( Amer) 32 L Est GFR (Non-Af Amer) 27 L Glucose 379 H Calcium 8.5 Iron 69.5 TIBC 271 % Saturation 26 Ferritin 62.40 Vitamin B12 778.0 Folate 14.30 11/28/17 11/28/17 11/28/17 16:29 16:29 22:57 Creatine Kinase 90 58 CK-MB (CK-2) 2.02 Troponin I 0.033 11/28/17 11/29/17 11/29/17 22:57 05:03 05:03 Creatine Kinase 59 CK-MB (CK-2) 1.27 1.01 Troponin I 0.022 0.019 Impressions: Abdomen/Pelvis CT 11/29/17 00:00 IMPRESSION: No acute findings in the abdomen or pelvis. Chest X-Ray 12/02/17 00:00 IMPRESSION: Right basilar infiltrate or atelectasis. Left basilar scarring. Assessment & Plan - Diagnosis (1) Ulcerative colitis Plan: having diarrhea, previous diagnosis many years ago had colectomy in the past following colon perforation at previous colonoscopy in [place] will need to follow up Colonoscopy would be helpful may need to start treatment could be the cause of her anemia check LFT's, make sure no concurrent PSC send stools for C.Diff (2) Gastric ulcer Plan: will need to follow up has some dysphagia as well patient could have peptic ulcer disease EGD would be needed as well (3) Anemia of chronic disease Is this a current diagnosis for this admission?: Yes Plan: will need to rule out GI bleeding EGD and colonoscopy it would be better for her to have Propofol sedation Risks, benefits and alternatives are explained to the patient in detail further recommendations to follow - Time Time Spent: 50 to 70 Minutes
[2017-12-03] MEDS: LACTOBACILLUS ACIDOPHILUS 250 MG TAB PO SCH (16:24)
[2017-12-03] MEDS ORDERED: MAGNESIUM CITRATE 296 ML BOTTLE PO ONE (18:00)
--- NOTE | 2017-12-03 19:00 | PDOC PROGRESS REPORT ---
Subjective Progress Note for:: 12/03/17 Subjective:: Patient was sitting in her chair with her daughter at her side. She feels like she is doing better. Currently she is mildly short of breath without chest pain. She denies fever or chills. Reason For Visit: COPD ACUTE EXCE,AFIB RVR Physical Exam Vital Signs: Temp Pulse Resp BP Pulse Ox 98.8 F 70 18 117/50 L 99 12/03/17 16:50 12/03/17 16:50 12/03/17 16:50 12/03/17 16:50 12/03/17 16:50 Intake & Output 12/02/17 12/03/17 12/04/17 06:59 06:59 06:59 Intake Total 1710 1225 700 Balance 1710 1225 700 Weight 51.3 kg 51 kg General appearance: PRESENT: no acute distress, well-developed, well-nourished Mouth exam: PRESENT: moist, neck supple Neck exam: PRESENT: full ROM. ABSENT: JVD, tracheal deviation Respiratory exam: PRESENT: clear to auscultation koko. ABSENT: accessory muscle use, crackles, rales, rhonchi, wheezes Cardiovascular exam: PRESENT: +S1, +S2 GI/Abdominal exam: PRESENT: normal bowel sounds, soft. ABSENT: distended, firm , organomegaly, tenderness Extremities exam: ABSENT: pedal edema, tenderness Musculoskeletal exam: PRESENT: normal inspection. ABSENT: tenderness Neurological exam: PRESENT: alert, awake, oriented to person, oriented to place , oriented to time, oriented to situation Psychiatric exam: PRESENT: appropriate affect, normal mood Skin exam: PRESENT: dry, intact, warm. ABSENT: cyanosis Results Laboratory Results: 12/03/17 07:02 12/03/17 07:02 12/03/17 12/03/17 07:02 07:02 WBC 7.8 RBC 2.95 L Hgb 8.3 L Hct 25.6 L MCV 87 MCH 28.3 MCHC 32.6 RDW 17.8 H Plt Count 177 Seg Neutrophils % Not Reportable Lymphocytes % Not Reportable Monocytes % Not Reportable Eosinophils % Not Reportable Basophils % Not Reportable Absolute Neutrophils Not Reportable Absolute Lymphocytes Not Reportable Absolute Monocytes Not Reportable Absolute Eosinophils Not Reportable Absolute Basophils Not Reportable Retic Count (auto) 1.98 Absolute Retic 0.059 Sodium 144.4 Potassium 3.6 Chloride 110 H Carbon Dioxide 22 Anion Gap 12 BUN 77 H Creatinine 1.83 H Est GFR ( Amer) 32 L Est GFR (Non-Af Amer) 27 L Glucose 379 H Calcium 8.5 Iron 69.5 TIBC 271 % Saturation 26 Ferritin 62.40 Vitamin B12 778.0 Folate 14.30 11/28/17 16:38 Blood Blood Culture - Final NO GROWTH IN 5 DAYS 11/28/17 11/28/17 11/28/17 16:29 16:29 22:57 Creatine Kinase 90 58 CK-MB (CK-2) 2.02 Troponin I 0.033 11/28/17 11/29/17 11/29/17 22:57 05:03 05:03 Creatine Kinase 59 CK-MB (CK-2) 1.27 1.01 Troponin I 0.022 0.019 Impressions: Abdomen/Pelvis CT 11/29/17 00:00 IMPRESSION: No acute findings in the abdomen or pelvis. Chest X-Ray 12/02/17 00:00 IMPRESSION: Right basilar infiltrate or atelectasis. Left basilar scarring. 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 (3) Anemia Qualifiers: Anemia type: unspecified type Qualified Code(s): D64.9 - Anemia, unspecified Is this a current diagnosis for this admission?: Yes Plan: iron studies were normal, will start on procrit today. (4) Atrial fibrillation with RVR Is this a current diagnosis for this admission?: Yes Plan: managed by cardiology (5) Congestive heart failure Qualifiers: Heart failure type: diastolic Heart failure chronicity: chronic Qualified Code(s): I50.32 - Chronic diastolic (congestive) heart failure Is this a current diagnosis for this admission?: Yes Plan: looks to have resolved (6) Pneumonia Qualifiers: Pneumonia type: due to unspecified organism Laterality: right Lung location: lower lobe of lung Qualified Code(s): J18.1 - Lobar pneumonia, unspecified organism Is this a current diagnosis for this admission?: Yes Plan: on IV antibiotics (7) Respiratory distress Is this a current diagnosis for this admission?: Yes Plan: improving
[2017-12-03] MEDS ORDERED: EPOETIN ALFA INJ 20000 UNIT/1 ML VIAL (RENAL) SUBCUT SCH (20:00)
[2017-12-03] MEDS: ALPRAZOLAM 0.25 MG TABLET PO PRN (20:54)
[2017-12-03] MEDS: MONTELUKAST SODIUM 10 MG TABLET PO SCH (20:55)
[2017-12-04] MEDS: LEVALBUTEROL HCL NEB 0.63 MG/3 ML AMPUL NEB SCH ×6 (00:03→20:53)
[2017-12-04] MEDS: METHYLPREDNISOLONE INJ 40 MG/1 ML SDV IV SCH ×4 (02:40→22:33)
[2017-12-04] MEDS: LANSOPRAZOLE 15 MG TAB.RAP.DR PO SCH ×2 (05:20→17:31)
[2017-12-04] MEDS: GABAPENTIN 400 MG CAPSULE PO SCH ×3 (05:20→22:33)
[2017-12-04] MEDS: CLINDAMYCIN 600 MG/D5W RTU 600 MG/50 ML RTUPB IV SCH ×3 (05:34→22:33)
[2017-12-04 07:21] LABS: HEMATOCRIT 24.5 % (36.0-47.0); HEMOGLOBIN 8.2 g/dL (12.0-15.5); MEAN CORPUSCULAR HEMOGLOBIN 28.8 pg (27.0-33.4); MEAN CORPUSCULAR HGB CONC 33.7 g/dL (32.0-36.0); MEAN CORPUSCULAR VOLUME 86 fl (80-97); PLATELET COUNT 159 10^3/uL (150-450); RED BLOOD COUNT 2.86 10^6/uL (3.72-5.28); RED CELL DISTRIBUTION WIDTH 17.6 % (11.5-14.0); WHITE BLOOD COUNT 8.3 10^3/uL (4.0-10.5)
[2017-12-04 07:31] LABS: ANION GAP 13 (5-19); BLOOD UREA NITROGEN 73 mg/dL (7-20); CALCIUM 8.3 mg/dL (8.4-10.2); CARBON DIOXIDE 21 mmol/L (22-30); CHLORIDE 108 mmol/L (98-107); GLUCOSE 348 mg/dL (75-110); POTASSIUM 3.5 mmol/L (3.6-5.0); SODIUM 142.1 mmol/L (137-145)
[2017-12-04] MEDS: BUDESONIDE NEB 0.5 MG/2 ML AMPUL NEB SCH ×2 (07:56→20:53)
[2017-12-04 08:06] LABS: LIPASE 2338.5 U/L (23-300)
[2017-12-04] MEDS ORDERED: POTASSIUM CHLORIDE 20 MEQ/50 ML RTU IV SCH (09:00)
[2017-12-04] MEDS: FUROSEMIDE 40 MG TABLET PO SCH (09:06)
[2017-12-04] MEDS: DILTIAZEM HCL 180 MG CAPSULE.CR PO SCH (09:07)
[2017-12-04] MEDS: LEVOFLOXACIN 500 MG TABLET PO SCH (09:08)
[2017-12-04] MEDS: SULFAMETHOXAZOLE/TRIMETHOPRIM 800-160 MG TABLET PO SCH (09:08)
[2017-12-04] MEDS: INSULIN LISPRO 100 UNIT/ML 3 ML VIAL SUBCUT PRN ×4 (09:10→22:32)
[2017-12-04] MEDS: DRONEDARONE HYDROCHLORIDE 400 MG TABLET PO SCH ×2 (09:10→22:33)
[2017-12-04] MEDS: ACETAMINOPHEN 325 MG TABLET PO PRN ×2 (09:12→23:08)
[2017-12-04] MEDS: FERROUS SULFATE 325 MG TABLET PO SCH (09:15)
[2017-12-04] MEDS: LACTOBACILLUS ACIDOPHILUS 250 MG TAB PO SCH ×2 (09:15→17:31)
[2017-12-04] MEDS: POTASSIUM CHLORIDE 20 MEQ/50 ML RTU IV SCH ×2 (09:23→11:17)
--- NOTE | 2017-12-04 11:49 | PDOC PROGRESS REPORT ---
Subjective Progress Note for:: 12/03/17 Subjective:: Patient showing slow gradual improvement. Patient still in mild respiratory distress. Pt is denying any chest arm or neck discomfort. Patient still has significant shortness of breath and on oxygen. Patient denying any PND, orthopnea. Patient denied any sustained palpitations, dizziness, syncope, near syncope. Patient denying any fever chills. Patient denying any other significant discomfort. Patient is maintaining sinus rhythm. Review of systems: Rest review of systems negative. Medications: Medications have been reviewed. Reason For Visit: COPD ACUTE EXCE,AFIB RVR Physical Exam Vital Signs: Temp Pulse Resp BP Pulse Ox 98.8 F 70 18 117/50 L 99 12/03/17 16:50 12/03/17 16:50 12/03/17 16:50 12/03/17 16:50 12/03/17 16:50 Intake & Output 12/02/17 12/03/17 12/04/17 06:59 06:59 06:59 Intake Total 1710 1225 700 Balance 1710 1225 700 Weight 51.3 kg 51 kg Exam: GENERAL: well-nourished and in no acute distress. Alert and oriented x3 HEAD: Atraumatic, normocephalic. EYES: Pupils equal round and reactive to light, extraocular movements intact, sclera anicteric, conjunctiva are normal. ENT: TMs normal, nares patent, oropharynx clear without exudates. Moist mucous membranes. No oral ulcerations or bleeding gums noted NECK: supple without lymphadenopathy. Trachea is central. No cervical or axillary lymphadenopathy noted. Carotids are 2+, JVD WNL LUNGS: Respiration seems nonlabored, no significant accessory muscle action noted. Bilateral mild wheezes rales or rhonchi noted. No significant dullness noted on percussion. CHEST: Palpation of the chest wall shows no significant chest wall tenderness. No other significant abnormalities noted. 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 ABDOMEN: Soft, no significant tenderness appreciated, normoactive bowel sounds. No guarding, no rebound. No rigidity noted . No masses appreciated. EXTREMITIES: Pedal pulses are 1-2+, no calf tenderness noted. No clubbing or cyanosis.trace to 1+ pedal edema noted NEUROLOGICAL: Focused neurological exam showed no significant neurologic deficit. Normal speech, no focal weakness appreciated. PSYCH: Normal mood, normal affect. Judgment and insight within normal limits. SKIN: No significant ecchymosis, rash, ulcerations or signs of pruritus noted. MUSCULOSKELETAL EXAM: No significant joint swelling noted. Results Laboratory Results: 12/03/17 07:02 12/03/17 07:02 12/03/17 12/03/17 07:02 07:02 WBC 7.8 RBC 2.95 L Hgb 8.3 L Hct 25.6 L MCV 87 MCH 28.3 MCHC 32.6 RDW 17.8 H Plt Count 177 Seg Neutrophils % Not Reportable Lymphocytes % Not Reportable Monocytes % Not Reportable Eosinophils % Not Reportable Basophils % Not Reportable Absolute Neutrophils Not Reportable Absolute Lymphocytes Not Reportable Absolute Monocytes Not Reportable Absolute Eosinophils Not Reportable Absolute Basophils Not Reportable Retic Count (auto) 1.98 Absolute Retic 0.059 Sodium 144.4 Potassium 3.6 Chloride 110 H Carbon Dioxide 22 Anion Gap 12 BUN 77 H Creatinine 1.83 H Est GFR ( Amer) 32 L Est GFR (Non-Af Amer) 27 L Glucose 379 H Calcium 8.5 Iron 69.5 TIBC 271 % Saturation 26 Ferritin 62.40 Vitamin B12 778.0 Folate 14.30 11/28/17 16:38 Blood Blood Culture - Final NO GROWTH IN 5 DAYS 11/28/17 11/28/17 11/28/17 16:29 16:29 22:57 Creatine Kinase 90 58 CK-MB (CK-2) 2.02 Troponin I 0.033 11/28/17 11/29/17 11/29/17 22:57 05:03 05:03 Creatine Kinase 59 CK-MB (CK-2) 1.27 1.01 Troponin I 0.022 0.019 EKG Comments: Patient maintaining sinus rhythm without any sustained tacky or bradycardia arrhythmias. Impressions: Abdomen/Pelvis CT 11/29/17 00:00 IMPRESSION: No acute findings in the abdomen or pelvis. Chest X-Ray 12/02/17 00:00 IMPRESSION: Right basilar infiltrate or atelectasis. Left basilar scarring. Assessment & Plan - Diagnosis (1) Atrial fibrillation with RVR Is this a current diagnosis for this admission?: Yes (2) Anemia Qualifiers: Anemia type: unspecified type Qualified Code(s): D64.9 - Anemia, unspecified Is this a current diagnosis for this admission?: Yes (3) Asthma exacerbation Qualifiers: Asthma severity: unspecified severity Asthma persistence: persistent Qualified Code(s): J45.901 - Unspecified asthma with (acute) exacerbation Is this a current diagnosis for this admission?: Yes (4) Chronic kidney disease Qualifiers: Chronic kidney disease stage: stage 2 (mild) Qualified Code(s): N18.2 - Chronic kidney disease, stage 2 (mild) Is this a current diagnosis for this admission?: Yes (5) Congestive heart failure Qualifiers: Heart failure type: diastolic Heart failure chronicity: chronic Qualified Code(s): I50.32 - Chronic diastolic (congestive) heart failure Is this a current diagnosis for this admission?: Yes (6) Coronary artery disease Qualifiers: Coronary Disease-Associated Artery/Lesion type: unspecified vessel or lesion type Is this a current diagnosis for this admission?: Yes (7) COPD (chronic obstructive pulmonary disease) Qualifiers: COPD type: unspecified COPD Qualified Code(s): J44.9 - Chronic obstructive pulmonary disease, unspecified Is this a current diagnosis for this admission?: Yes (8) Pneumonia Qualifiers: Pneumonia type: due to unspecified organism Laterality: right Lung location: lower lobe of lung Qualified Code(s): J18.1 - Lobar pneumonia, unspecified organism Is this a current diagnosis for this admission?: Yes - Notes Notes: Atrial fibrillation with rapid ventricular response: Currently patient in sinus rhythm. Patient is tolerating multaq therapy. Continue at current dose and also continue Cardizem at current dose. Will also discuss feasibility of chronic anticoagulation with primary care attending. Dr. Heller will be back tomorrow. CHF: Possibly related to atrial fibrillation. Multaq has been reported to reduce CHF related admission in patients with A. fib. Patient seems compensated at this point. Watch for volume status on a daily basis. Coronary artery disease: Symptomatically stable. Patient to report any chest pain. Chronic kidney disease: Currently stable patient being followed by charge out clerk. Asthma exacerbation: Continue with bronchodilator and steroid therapy as needed. Patient seems to have severe underlying COPD/asthma. Anemia: Currently stable try maintain hemoglobin above 8 g percent. I am told that GI consultation is being sought as patient does describe history of ulcerative colitis. Again had long discussion with patient's daughter who was in the room. - Time Time with patient: Greater than 35 minutes - CODE STATUS was discussed, patient remains DNR. Surrogate decision-maker unchanged. Multiple medical problems were addressed. More than 50% of the time spent coordinating care, discussing management plans with involved caregivers. Management plans discussed with involved personnels. Medical decision making was of moderate to high complexity , patient's has multiple comorbidities. Medications reviewed and adjusted accordingly: Yes
--- NOTE | 2017-12-04 11:53 | PDOC PROGRESS REPORT ---
Subjective Progress Note for:: 12/04/17 Subjective:: Patient had lipase level obtained yesterday which came back significantly elevated. Patient showing slow gradual improvement. Patient still in mild respiratory distress but significantly improved than before. Pt is denying any chest arm or neck discomfort. Patient still has significant shortness of breath and on oxygen. Patient denying any PND, orthopnea. Patient denied any sustained palpitations, dizziness, syncope, near syncope. Patient denying any fever chills. Patient denying any other significant discomfort. Patient is maintaining sinus rhythm. Review of systems: Rest review of systems negative. Medications: Medications have been reviewed. Reason For Visit: COPD ACUTE EXCE,AFIB RVR Physical Exam Vital Signs: Temp Pulse Resp BP Pulse Ox 98.1 F 76 12 143/52 H 98 12/04/17 10:57 12/04/17 11:24 12/04/17 11:24 12/04/17 10:57 12/04/17 11:24 Intake & Output 12/03/17 12/04/17 12/05/17 06:59 06:59 06:59 Intake Total 1225 1450 Balance 1225 1450 Weight 51 kg 51.1 kg Exam: GENERAL: well-nourished and in no acute distress. Alert and oriented x3 HEAD: Atraumatic, normocephalic. EYES: Pupils equal round and reactive to light, extraocular movements intact, sclera anicteric, conjunctiva are normal. ENT: TMs normal, nares patent, oropharynx clear without exudates. Moist mucous membranes. No oral ulcerations or bleeding gums noted NECK: supple without lymphadenopathy. Trachea is central. No cervical or axillary lymphadenopathy noted. Carotids are 2+, JVD WNL LUNGS: Respiration seems nonlabored, no significant accessory muscle action noted. Bilateral mild wheezes rales or rhonchi noted. No significant dullness noted on percussion. CHEST: Palpation of the chest wall shows no significant chest wall tenderness. No other significant abnormalities noted. 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 ABDOMEN: Soft, no significant tenderness appreciated, normoactive bowel sounds. No guarding, no rebound. No rigidity noted . No masses appreciated. EXTREMITIES: Pedal pulses are 1-2+, no calf tenderness noted. No clubbing or cyanosis.trace to 1+ pedal edema noted NEUROLOGICAL: Focused neurological exam showed no significant neurologic deficit. Normal speech, no focal weakness appreciated. PSYCH: Normal mood, normal affect. Judgment and insight within normal limits. SKIN: No significant ecchymosis, rash, ulcerations or signs of pruritus noted. MUSCULOSKELETAL EXAM: No significant joint swelling noted. Results Laboratory Results: 12/04/17 06:16 12/04/17 06:16 12/03/17 12/04/17 12/04/17 07:02 06:16 06:16 WBC 8.3 RBC 2.86 L Hgb 8.2 L Hct 24.5 L MCV 86 MCH 28.8 MCHC 33.7 RDW 17.6 H Plt Count 159 Sodium 142.1 Potassium 3.5 L Chloride 108 H Carbon Dioxide 21 L Anion Gap 13 BUN 73 H Creatinine 1.68 H Est GFR ( Amer) 36 L Est GFR (Non-Af Amer) 30 L Glucose 348 H Calcium 8.3 L Transferrin 201 Lipase 2338.5 H 11/28/17 16:38 Blood Blood Culture - Final NO GROWTH IN 5 DAYS 11/28/17 11/28/17 11/28/17 16:29 16:29 22:57 Creatine Kinase 90 58 CK-MB (CK-2) 2.02 Troponin I 0.033 11/28/17 11/29/17 11/29/17 22:57 05:03 05:03 Creatine Kinase 59 CK-MB (CK-2) 1.27 1.01 Troponin I 0.022 0.019 Impressions: Abdomen/Pelvis CT 11/29/17 00:00 IMPRESSION: No acute findings in the abdomen or pelvis. Chest X-Ray 12/02/17 00:00 IMPRESSION: Right basilar infiltrate or atelectasis. Left basilar scarring. Assessment & Plan - Diagnosis (1) Atrial fibrillation with RVR Is this a current diagnosis for this admission?: Yes (2) Anemia Qualifiers: Anemia type: unspecified type Qualified Code(s): D64.9 - Anemia, unspecified Is this a current diagnosis for this admission?: Yes (3) Asthma exacerbation Qualifiers: Asthma severity: unspecified severity Asthma persistence: persistent Qualified Code(s): J45.901 - Unspecified asthma with (acute) exacerbation Is this a current diagnosis for this admission?: Yes (4) Chronic kidney disease Qualifiers: Chronic kidney disease stage: stage 2 (mild) Qualified Code(s): N18.2 - Chronic kidney disease, stage 2 (mild) Is this a current diagnosis for this admission?: Yes (5) Congestive heart failure Qualifiers: Heart failure type: diastolic Heart failure chronicity: chronic Qualified Code(s): I50.32 - Chronic diastolic (congestive) heart failure Is this a current diagnosis for this admission?: Yes (6) Coronary artery disease Qualifiers: Coronary Disease-Associated Artery/Lesion type: unspecified vessel or lesion type Is this a current diagnosis for this admission?: Yes (7) COPD (chronic obstructive pulmonary disease) Qualifiers: COPD type: unspecified COPD Qualified Code(s): J44.9 - Chronic obstructive pulmonary disease, unspecified Is this a current diagnosis for this admission?: Yes (8) Pneumonia Qualifiers: Pneumonia type: due to unspecified organism Laterality: right Lung location: lower lobe of lung Qualified Code(s): J18.1 - Lobar pneumonia, unspecified organism Is this a current diagnosis for this admission?: Yes - Notes Notes: Atrial fibrillation with rapid ventricular response: Currently patient in sinus rhythm. Patient is tolerating multaq therapy. Continue at current dose and also continue Cardizem at current dose. Multiple EKGs obtained did not show any QTC prolongation. Patient felt a borderline candidate for chronic anticoagulation. At this point it is best to hold it. CHF: Possibly related to atrial fibrillation. Multaq has been reported to reduce CHF related admission in patients with A. fib. Patient today seems compensated at this point. Watch for volume status on a daily basis. Coronary artery disease: Symptomatically stable. Patient to report any chest pain. 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 Asthma exacerbation: Continue with bronchodilator and steroid therapy as needed. Patient seems to have severe underlying COPD/asthma. Anemia: Currently stable try maintain hemoglobin above 8 g percent. Patient tells me that she is scheduled for upper and lower GI endoscopy. Please note patient's lipase is also up. Again had long discussion with patient's daughter who was in the room. - Time Time with patient: Greater than 35 minutes - CODE STATUS was discussed, patient remains full code. Surrogate decision-maker unchanged. Multiple medical problems were addressed. More than 50% of the time spent coordinating care, discussing management plans with involved caregivers. Management plans discussed with involved personnels. Medical decision making was of moderate to high complexity, patient's has multiple comorbidities. Medications reviewed and adjusted accordingly: Yes
[2017-12-04] MEDS ORDERED: MIDAZOLAM 2 MG/2 ML INJ ONE ×2 (14:02)
[2017-12-04] MEDS ORDERED: PROPOFOL INJ 200 MG/20 ML VIAL IV ONE (14:02)
--- NOTE | 2017-12-04 15:13 | PDOC PROGRESS REPORT ---
Subjective Progress Note for:: 12/04/17 Subjective:: Patient is currently doing fair Patient's had a physical therapy done prior to walk on the bathroom did okay but still feeling short of breath Patient seen by Dr. Bal scheduled for the procedure today Patient's denied any chest pain denied any shortness of breath while resting Patient's daughter is on the bedside Reason For Visit: COPD ACUTE EXCE,AFIB RVR Physical Exam Vital Signs: Temp Pulse Resp BP Pulse Ox 98.2 F 80 19 137/50 H 99 12/04/17 12:43 12/04/17 14:00 12/04/17 12:43 12/04/17 12:43 12/04/17 12:43 Intake & Output 12/03/17 12/04/17 12/05/17 06:59 06:59 06:59 Intake Total 1225 1450 0 Balance 1225 1450 0 Weight 51 kg 51.1 kg General appearance: PRESENT: no acute distress, well-developed, well-nourished Head exam: PRESENT: atraumatic, normocephalic Eye exam: PRESENT: conjunctiva pink, EOMI, PERRLA. ABSENT: scleral icterus Ear exam: PRESENT: normal external ear exam Mouth exam: PRESENT: moist, tongue midline Neck exam: PRESENT: full ROM. ABSENT: carotid bruit, JVD, lymphadenopathy, thyromegaly Respiratory exam: PRESENT: decreased breath sounds, wheezes Cardiovascular exam: PRESENT: RRR. ABSENT: diastolic murmur, rubs, systolic murmur Pulses: PRESENT: normal dorsalis pedis pul, +2 pedal pulses bilateral Vascular exam: PRESENT: normal capillary refill GI/Abdominal exam: PRESENT: normal bowel sounds, soft. ABSENT: distended, guarding, mass, organolmegaly, rebound, tenderness Rectal exam: PRESENT: deferred Extremities exam: ABSENT: pedal edema Musculoskeletal exam: PRESENT: ambulatory Neurological exam: PRESENT: alert, awake, oriented to person, oriented to place , oriented to time, oriented to situation, CN II-XII grossly intact. ABSENT: motor sensory deficit Psychiatric exam: PRESENT: appropriate affect, normal mood. ABSENT: homicidal ideation, suicidal ideation Skin exam: PRESENT: dry, intact, warm. ABSENT: cyanosis, rash Results Laboratory Results: 12/04/17 06:16 12/04/17 06:16 12/03/17 12/04/17 12/04/17 07:02 06:16 06:16 WBC 8.3 RBC 2.86 L Hgb 8.2 L Hct 24.5 L MCV 86 MCH 28.8 MCHC 33.7 RDW 17.6 H Plt Count 159 Sodium 142.1 Potassium 3.5 L Chloride 108 H Carbon Dioxide 21 L Anion Gap 13 BUN 73 H Creatinine 1.68 H Est GFR ( Amer) 36 L Est GFR (Non-Af Amer) 30 L Glucose 348 H Calcium 8.3 L Transferrin 201 Lipase 2338.5 H 11/28/17 16:38 Blood Blood Culture - Final NO GROWTH IN 5 DAYS 11/28/17 11/28/17 11/28/17 16:29 16:29 22:57 Creatine Kinase 90 58 CK-MB (CK-2) 2.02 Troponin I 0.033 11/28/17 11/29/17 11/29/17 22:57 05:03 05:03 Creatine Kinase 59 CK-MB (CK-2) 1.27 1.01 Troponin I 0.022 0.019 Impressions: Abdomen/Pelvis CT 11/29/17 00:00 IMPRESSION: No acute findings in the abdomen or pelvis. Chest X-Ray 12/02/17 00:00 IMPRESSION: Right basilar infiltrate or atelectasis. Left basilar scarring. Assessment & Plan - Diagnosis (1) Asthma exacerbation Qualifiers: Asthma severity: unspecified severity Asthma persistence: persistent Qualified Code(s): J45.901 - Unspecified asthma with (acute) exacerbation Is this a current diagnosis for this admission?: Yes Plan: Continues to current medications reduce the steroid follow with the pulmonary (2) Respiratory distress Is this a current diagnosis for this admission?: Yes Plan: Due to the above conditions we will consult the pulmonary for the patient's have a significant history of the pulmonary disease and patient's already seen by Dr. Patino's last week (3) Atrial fibrillation with RVR Is this a current diagnosis for this admission?: Yes Plan: Currently switched to the p.o. Cardizem (4) Pneumonia Qualifiers: Pneumonia type: due to unspecified organism Laterality: right Lung location: lower lobe of lung Qualified Code(s): J18.1 - Lobar pneumonia, unspecified organism Is this a current diagnosis for this admission?: Yes Plan: With MRSA continues to clindamycin's and current other medications (5) Congestive heart failure Qualifiers: Heart failure type: diastolic Heart failure chronicity: chronic Qualified Code(s): I50.32 - Chronic diastolic (congestive) heart failure Is this a current diagnosis for this admission?: Yes Plan: Continues to Lasix (6) Coronary artery disease Qualifiers: Coronary Disease-Associated Artery/Lesion type: unspecified vessel or lesion type Is this a current diagnosis for this admission?: Yes Plan: Currently all stable (7) Anemia Qualifiers: Anemia type: unspecified type Qualified Code(s): D64.9 - Anemia, unspecified Is this a current diagnosis for this admission?: Yes Plan: Follow for the endoscopy today (8) Chronic kidney disease Qualifiers: Chronic kidney disease stage: stage 2 (mild) Qualified Code(s): N18.2 - Chronic kidney disease, stage 2 (mild) Is this a current diagnosis for this admission?: Yes Plan: Currently all improving (9) Osteoarthritis Qualifiers: Laterality: unspecified laterality Is this a current diagnosis for this admission?: Yes (10) Addisons disease Is this a current diagnosis for this admission?: Yes Plan: Continues IV steroid - Time Time Spent with patient: 15-24 minutes Medications reviewed and adjusted accordingly: Yes Anticipated discharge: Other Within: Other - Inpatient Certification Medical Necessity: Need Close Monitoring Due to Risk of Patient Decompensation, Need For IV Fluids, Need for IV Antibiotics Post Hospital Care: D/C 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
[2017-12-04] MEDS: HEPARIN SOD (PORCINE) 5,000 UNIT/ML 1 ML SYRINGE SUBCUT SCH ×2 (15:46→22:32)
--- NOTE | 2017-12-04 16:09 | Operative Report ---
Operative Report DATE OF SURGERY: 12/04/17 Operative Report: The risks, benefits and alternatives of the procedure including risks of bleeding, perforation requiring surgery I explained to the patient detail and informed consent was obtained. Patient was taken to the operating room and placed in the left, lateral decubital position. Timeout was called. Propofol medications administered. Rectal examination is done which did not reveal any masses, tears or fissures. An Olympus videoscope was inserted into the patient' s rectum. The scope was then carefully advanced all the way to the anastomotic site. Patient appears to have had a right hemicolectomy. Prep is not as good. There is some fecal material on the right side of the colon. The scope was then sequentially pulled back through the various distal portions of the colon. Retroflexion maneuvers performed. The risks benefits and alternatives of the procedure explained to the patient in detail and informed consent is obtained.A GIF Olympus video scope was inserted into the patient's mouth and hypopharynx, the esophagus is identified intubated and insufflated, the scope was then advanced through the esophagus stomach and duodenum, retroflexion maneuver is done, the esophagus stomach and first and second portions of the duodenum examined PREOPERATIVE DIAGNOSIS: History of ulcerative colitis. Patient had a previous colectomy in the past due to colonic perforation. Change of bowel habits. Ongoing diarrhea. Anemia rule out GI bleed. Dysphagia, nausea vomiting POSTOPERATIVE DIAGNOSIS: She appears to have Maris esophagitis., Brushings obtained. Gastritis status post biopsy rule out Helicobacter pylori. Colonic ulcer that is just proximal to the anastomotic site status post biopsy rule out Crohn's disease. Internal hemorrhoids OPERATION: Colonoscopy with biopsy. EGD with biopsy and brushings SURGEON: PATRICIA ANGEL ANESTHESIA: LMAC TISSUE REMOVED OR ALTERED: As noted above. COMPLICATIONS: None. ESTIMATED BLOOD LOSS: None. INTRAOPERATIVE FINDINGS: As described above. PROCEDURE: Patient tolerated procedure well. No immediate postprocedure complications are noted. Patient sent back to her room in good condition. She can be started on nystatin swish and swallow. We will await biopsies. She could very well have Crohn's disease. Further recommendations to follow.
--- NOTE | 2017-12-04 19:44 | Pulmonary Function Test ---
Pulmonary Function Test Date of Procedure:: 12/04/17 INDICATION:: dyspnea Referring Provider: Dr Fina Heller - Report Spirometry: FVC 1.87 L 85% postbronchodilator therapy 1.70 L 77% FEV1 0.99 L 57% postbronchodilator therapy 0.97 L 56% FEV1/FVC % 53 postbronchodilator therapy 57 predicted 79 Impression: Obstructive ventilatory defect with insignificant bronchodilator therapy this in and of itself does not preclude clinical trial of bronchodilator therapy.
--- NOTE | 2017-12-04 22:06 | PDOC PROGRESS REPORT ---
Subjective Progress Note for:: 12/04/17 Subjective:: Patient had just come back from EGD with biopsy. At the time she currently short of breath from moving to her bed. She says prior to this she seemed to be improving. She denies chest pain or chest palpatations. According to her nurse she had already received 2 20mEQ k-riders. Reason For Visit: COPD ACUTE EXCE,AFIB RVR Physical Exam Vital Signs: Temp Pulse Resp BP Pulse Ox 97.5 F 74 16 131/53 H 98 12/04/17 15:56 12/04/17 20:53 12/04/17 20:53 12/04/17 15:56 12/04/17 20:53 Intake & Output 12/03/17 12/04/17 12/05/17 06:59 06:59 06:59 Intake Total 1225 1450 1900 Balance 1225 1450 1900 Weight 51 kg 51.1 kg General appearance: PRESENT: no acute distress, well-developed, well-nourished Mouth exam: PRESENT: moist, neck supple Respiratory exam: PRESENT: clear to auscultation koko. ABSENT: accessory muscle use, crackles, rales, rhonchi, wheezes Cardiovascular exam: PRESENT: +S1, +S2 GI/Abdominal exam: PRESENT: normal bowel sounds, soft. ABSENT: distended, firm , organomegaly, tenderness Extremities exam: ABSENT: pedal edema, tenderness Musculoskeletal exam: PRESENT: normal inspection. ABSENT: tenderness Neurological exam: PRESENT: alert, awake, oriented to person, oriented to place , oriented to time, oriented to situation Skin exam: PRESENT: dry, intact, warm. ABSENT: cyanosis Results Laboratory Results: 12/04/17 06:16 12/04/17 06:16 12/03/17 12/04/17 12/04/17 07:02 06:16 06:16 WBC 8.3 RBC 2.86 L Hgb 8.2 L Hct 24.5 L MCV 86 MCH 28.8 MCHC 33.7 RDW 17.6 H Plt Count 159 Sodium 142.1 Potassium 3.5 L Chloride 108 H Carbon Dioxide 21 L Anion Gap 13 BUN 73 H Creatinine 1.68 H Est GFR ( Amer) 36 L Est GFR (Non-Af Amer) 30 L Glucose 348 H Calcium 8.3 L Transferrin 201 Lipase 2338.5 H 11/28/17 11/28/17 11/28/17 16:29 16:29 22:57 Creatine Kinase 90 58 CK-MB (CK-2) 2.02 Troponin I 0.033 11/28/17 11/29/17 11/29/17 22:57 05:03 05:03 Creatine Kinase 59 CK-MB (CK-2) 1.27 1.01 Troponin I 0.022 0.019 Impressions: Abdomen/Pelvis CT 11/29/17 00:00 IMPRESSION: No acute findings in the abdomen or pelvis. Chest X-Ray 12/02/17 00:00 IMPRESSION: Right basilar infiltrate or atelectasis. Left basilar scarring. 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 (3) Anemia Qualifiers: Anemia type: unspecified type Qualified Code(s): D64.9 - Anemia, unspecified Is this a current diagnosis for this admission?: Yes Plan: received procrit yesterday, will watch to see if it trends up. (4) Hypokalemia Plan: received 40mEQ of k-riders. Will reassess tomorrow (5) Atrial fibrillation with RVR Is this a current diagnosis for this admission?: Yes Plan: managed by cardiology (6) Congestive heart failure Qualifiers: Heart failure type: diastolic Heart failure chronicity: chronic Qualified Code(s): I50.32 - Chronic diastolic (congestive) heart failure Is this a current diagnosis for this admission?: Yes Plan: looks to have resolved (7) Pneumonia Qualifiers: Pneumonia type: due to unspecified organism Laterality: right Lung location: lower lobe of lung Qualified Code(s): J18.1 - Lobar pneumonia, unspecified organism Is this a current diagnosis for this admission?: Yes Plan: on IV antibiotics (8) Respiratory distress Is this a current diagnosis for this admission?: Yes - Notes Notes: Patient was reviewed with Dr. Powers
[2017-12-04] MEDS: ALPRAZOLAM 0.25 MG TABLET PO PRN (22:33)
[2017-12-04] MEDS: MONTELUKAST SODIUM 10 MG TABLET PO SCH (22:33)
[2017-12-05] MEDS: LEVALBUTEROL HCL NEB 0.63 MG/3 ML AMPUL NEB SCH ×7 (00:05→23:41)
[2017-12-05 05:26] LABS: ANION GAP 9 (5-19); BLOOD UREA NITROGEN 60 mg/dL (7-20); CALCIUM 8.2 mg/dL (8.4-10.2); CARBON DIOXIDE 22 mmol/L (22-30); CHLORIDE 113 mmol/L (98-107); GLUCOSE 270 mg/dL (75-110); POTASSIUM 3.4 mmol/L (3.6-5.0); SODIUM 144.1 mmol/L (137-145)
[2017-12-05] MEDS: LANSOPRAZOLE 15 MG TAB.RAP.DR PO SCH ×2 (05:28→16:36)
[2017-12-05] MEDS: CLINDAMYCIN 600 MG/D5W RTU 600 MG/50 ML RTUPB IV SCH ×3 (05:28→21:45)
[2017-12-05] MEDS: GABAPENTIN 400 MG CAPSULE PO SCH ×3 (05:28→21:41)
[2017-12-05] MEDS: METHYLPREDNISOLONE INJ 40 MG/1 ML SDV IV SCH ×3 (05:28→21:37)
[2017-12-05] MEDS: HEPARIN SOD (PORCINE) 5,000 UNIT/ML 1 ML SYRINGE SUBCUT SCH ×3 (05:28→21:41)
[2017-12-05 06:14] LABS: ARTERIAL BLOOD BASE EXCESS -0.7 mmol/L; ARTERIAL BLOOD FIO2 28%; ARTERIAL BLOOD H2CO3 0.98 mmol/L (1.05-1.35); ARTERIAL BLOOD HCO3 22.5 mmol/L (20-26); ARTERIAL BLOOD O2 SATURATION 98.6 % (94-98); ARTERIAL BLOOD PCO2 32.4 mmHg (35-45); ARTERIAL BLOOD PH 7.46 (7.35-7.45); ARTERIAL BLOOD TOTAL CO2 23.5 mmol/L (21-25)
[2017-12-05] MEDS: ACETAMINOPHEN 325 MG TABLET PO PRN (06:15)
[2017-12-05] MEDS: BUDESONIDE NEB 0.5 MG/2 ML AMPUL NEB SCH ×2 (07:49→20:46)
[2017-12-05] MEDS: INSULIN LISPRO 100 UNIT/ML 3 ML VIAL SUBCUT PRN ×4 (07:54→23:13)
[2017-12-05] MEDS: FUROSEMIDE 40 MG TABLET PO SCH (07:55)
--- NOTE | 2017-12-05 09:19 | PDOC PROGRESS REPORT ---
Subjective Progress Note for:: 12/05/17 Subjective:: Patient underwent for the endoscopy and colonoscopy with psoas continue esophagitis and some mild colonic ulcer and anastomosis site Patient's otherwise denied any abdominal pain no nausea no vomiting Patient still have a wheezing sounds with a pulmonary function test done with so some obstructive pattern Patient's blood sugar still running high most likely due to the steroids Patient's denied any chest pain denied any shortness of the breathBut still short of breath when she move Reason For Visit: COPD ACUTE EXCE,AFIB RVR Physical Exam Vital Signs: Temp Pulse Resp BP Pulse Ox 98.0 F 78 16 154/62 H 99 12/05/17 07:44 12/05/17 07:44 12/05/17 07:44 12/05/17 07:44 12/05/17 07:44 Intake & Output 12/04/17 12/05/17 12/06/17 06:59 06:59 06:59 Intake Total 1450 2600 Balance 1450 2600 Weight 51.1 kg 53.1 kg General appearance: PRESENT: no acute distress, well-developed, well-nourished Head exam: PRESENT: atraumatic, normocephalic Eye exam: PRESENT: conjunctiva pink, EOMI, PERRLA. ABSENT: scleral icterus Ear exam: PRESENT: normal external ear exam Mouth exam: PRESENT: moist, tongue midline Neck exam: PRESENT: full ROM. ABSENT: carotid bruit, JVD, lymphadenopathy, thyromegaly Respiratory exam: PRESENT: wheezes Cardiovascular exam: PRESENT: RRR. ABSENT: diastolic murmur, rubs, systolic murmur Pulses: PRESENT: normal dorsalis pedis pul, +2 pedal pulses bilateral Vascular exam: PRESENT: normal capillary refill GI/Abdominal exam: PRESENT: normal bowel sounds, soft. ABSENT: distended, guarding, mass, organolmegaly, rebound, tenderness Rectal exam: PRESENT: deferred Extremities exam: PRESENT: pedal edema Neurological exam: PRESENT: alert, awake, oriented to person, oriented to place , oriented to time, oriented to situation, CN II-XII grossly intact. ABSENT: motor sensory deficit Psychiatric exam: PRESENT: appropriate affect, normal mood. ABSENT: homicidal ideation, suicidal ideation Skin exam: PRESENT: dry, intact, warm. ABSENT: cyanosis, rash Results Laboratory Results: 12/04/17 06:16 12/05/17 04:33 12/05/17 12/05/17 04:33 05:39 Carbonic Acid 0.98 L HCO3/H2CO3 Ratio 22:1 ABG pH 7.46 H ABG pCO2 32.4 L ABG pO2 123.0 H ABG HCO3 22.5 ABG O2 Saturation 98.6 H ABG Base Excess -0.7 FiO2 28% Sodium 144.1 Potassium 3.4 L Chloride 113 H Carbon Dioxide 22 Anion Gap 9 BUN 60 H Creatinine 1.28 H Est GFR ( Amer) 49 L Est GFR (Non-Af Amer) 40 L Glucose 270 H Calcium 8.2 L 11/28/17 11/28/17 11/28/17 16:29 16:29 22:57 Creatine Kinase 90 58 CK-MB (CK-2) 2.02 Troponin I 0.033 11/28/17 11/29/17 11/29/17 22:57 05:03 05:03 Creatine Kinase 59 CK-MB (CK-2) 1.27 1.01 Troponin I 0.022 0.019 Impressions: Abdomen/Pelvis CT 11/29/17 00:00 IMPRESSION: No acute findings in the abdomen or pelvis. Chest X-Ray 12/02/17 00:00 IMPRESSION: Right basilar infiltrate or atelectasis. Left basilar scarring. Assessment & Plan - Diagnosis (1) Asthma exacerbation Qualifiers: Asthma severity: unspecified severity Asthma persistence: persistent Qualified Code(s): J45.901 - Unspecified asthma with (acute) exacerbation Is this a current diagnosis for this admission?: Yes Plan: Continues to current medications continues IV steroid (2) Respiratory distress Is this a current diagnosis for this admission?: Yes Plan: Due to the above conditions we will consult the pulmonary for the patient's have a significant history of the pulmonary disease and patient's already seen by Dr. Patino's last week (3) Atrial fibrillation with RVR Is this a current diagnosis for this admission?: Yes Plan: Currently switched to the p.o. Cardizem (4) Pneumonia Qualifiers: Pneumonia type: due to unspecified organism Laterality: right Lung location: lower lobe of lung Qualified Code(s): J18.1 - Lobar pneumonia, unspecified organism Is this a current diagnosis for this admission?: Yes Plan: With MRSA continues to clindamycin's and current other medications (5) Congestive heart failure Qualifiers: Heart failure type: diastolic Heart failure chronicity: chronic Qualified Code(s): I50.32 - Chronic diastolic (congestive) heart failure Is this a current diagnosis for this admission?: Yes Plan: Continues to Lasix (6) Coronary artery disease Qualifiers: Coronary Disease-Associated Artery/Lesion type: unspecified vessel or lesion type Is this a current diagnosis for this admission?: Yes Plan: Currently all stable (7) Anemia Qualifiers: Anemia type: unspecified type Qualified Code(s): D64.9 - Anemia, unspecified Is this a current diagnosis for this admission?: Yes Plan: She underwent endoscopy and colonoscopy done will start the patient on her Diflucan and patient is currently on a PPI (8) Chronic kidney disease Qualifiers: Chronic kidney disease stage: stage 2 (mild) Qualified Code(s): N18.2 - Chronic kidney disease, stage 2 (mild) Is this a current diagnosis for this admission?: Yes Plan: Currently all improving (9) Osteoarthritis Qualifiers: Laterality: unspecified laterality Is this a current diagnosis for this admission?: Yes (10) Addisons disease Is this a current diagnosis for this admission?: Yes Plan: Continues IV steroid - Time Time Spent with patient: 15-24 minutes Medications reviewed and adjusted accordingly: Yes Anticipated discharge: Other Within: Other - Inpatient Certification Medical Necessity: Need Close Monitoring Due to Risk of Patient Decompensation, Need for IV Antibiotics Post Hospital Care: D/C Recruitment Manager Documentation - Plan Summary Plan Summary: We will repeat the CBC and Chem-7 in the morning repeat the chest x-ray today and continues to monitor the patient's
[2017-12-05] MEDS: DILTIAZEM HCL 180 MG CAPSULE.CR PO SCH (09:37)
[2017-12-05] MEDS: LEVOFLOXACIN 500 MG TABLET PO SCH (09:38)
[2017-12-05] MEDS: DRONEDARONE HYDROCHLORIDE 400 MG TABLET PO SCH ×2 (09:38→21:41)
[2017-12-05] MEDS: LACTOBACILLUS ACIDOPHILUS 250 MG TAB PO SCH ×2 (09:39→18:11)
[2017-12-05] MEDS: FERROUS SULFATE 325 MG TABLET PO SCH (09:39)
[2017-12-05] MEDS: POTASSIUM CHLORIDE 10 MEQ TABLET.SA PO SCH (10:57)
[2017-12-05] MEDS: FLUCONAZOLE 100 MG TABLET PO SCH (10:57)
--- NOTE | 2017-12-05 11:47 | PDOC PROGRESS REPORT ---
Subjective Progress Note for:: 12/05/17 Subjective:: Patient was sitting comfortably in her bed with only minor complaints of SOB. She currently has appetite. She denies any chest pain, heart palpitations, muscle weakness, fevers or chills. Reason For Visit: COPD ACUTE EXCE,AFIB RVR Physical Exam Vital Signs: Temp Pulse Resp BP Pulse Ox 98.0 F 78 16 154/62 H 99 12/05/17 07:44 12/05/17 07:44 12/05/17 07:44 12/05/17 07:44 12/05/17 07:44 Intake & Output 12/04/17 12/05/17 12/06/17 06:59 06:59 06:59 Intake Total 1450 2600 Balance 1450 2600 Weight 51.1 kg 53.1 kg General appearance: PRESENT: no acute distress, well-developed, well-nourished Neck exam: PRESENT: full ROM. ABSENT: JVD Respiratory exam: PRESENT: crackles, rhonchi, wheezes. ABSENT: accessory muscle use, clear to auscultation koko Cardiovascular exam: PRESENT: +S1, +S2 GI/Abdominal exam: PRESENT: normal bowel sounds, soft. ABSENT: distended, firm , organomegaly, tenderness Extremities exam: PRESENT: pedal edema - -trace+. ABSENT: tenderness Musculoskeletal exam: PRESENT: normal inspection. ABSENT: tenderness Neurological exam: PRESENT: alert, awake, oriented to person, oriented to place , oriented to time, oriented to situation Psychiatric exam: PRESENT: appropriate affect, normal mood Skin exam: PRESENT: dry, intact, warm Results Laboratory Results: 12/04/17 06:16 12/05/17 04:33 12/05/17 12/05/17 04:33 05:39 Carbonic Acid 0.98 L HCO3/H2CO3 Ratio 22:1 ABG pH 7.46 H ABG pCO2 32.4 L ABG pO2 123.0 H ABG HCO3 22.5 ABG O2 Saturation 98.6 H ABG Base Excess -0.7 FiO2 28% Sodium 144.1 Potassium 3.4 L Chloride 113 H Carbon Dioxide 22 Anion Gap 9 BUN 60 H Creatinine 1.28 H Est GFR ( Amer) 49 L Est GFR (Non-Af Amer) 40 L Glucose 270 H Calcium 8.2 L 11/28/17 11/28/17 11/28/17 16:29 16:29 22:57 Creatine Kinase 90 58 CK-MB (CK-2) 2.02 Troponin I 0.033 11/28/17 11/29/17 11/29/17 22:57 05:03 05:03 Creatine Kinase 59 CK-MB (CK-2) 1.27 1.01 Troponin I 0.022 0.019 Impressions: Abdomen/Pelvis CT 11/29/17 00:00 IMPRESSION: No acute findings in the abdomen or pelvis. Chest X-Ray 12/02/17 00:00 IMPRESSION: Right basilar infiltrate or atelectasis. Left basilar scarring. Assessment & Plan - Diagnosis (1) DIONNE (acute kidney injury) Plan: looks to be resolving, currently looks to be at baseline. At this point and time her kidneys look to be stable. (3) Anemia Qualifiers: Anemia type: unspecified type Qualified Code(s): D64.9 - Anemia, unspecified Is this a current diagnosis for this admission?: Yes Plan: currently stable, expect for the procrit to start taking affect tomorrow. Currently no indication to give a blood transfusion (4) Hypokalemia Plan: starting her on PO potassium 20mEQ daily (5) Atrial fibrillation with RVR Is this a current diagnosis for this admission?: Yes Plan: managed by cardiology (6) Congestive heart failure Qualifiers: Heart failure type: diastolic Heart failure chronicity: chronic Qualified Code(s): I50.32 - Chronic diastolic (congestive) heart failure Is this a current diagnosis for this admission?: Yes Plan: looks to have resolved (7) Pneumonia Qualifiers: Pneumonia type: due to unspecified organism Laterality: right Lung location: lower lobe of lung Qualified Code(s): J18.1 - Lobar pneumonia, unspecified organism Is this a current diagnosis for this admission?: Yes Plan: on IV antibiotics (8) Respiratory distress Is this a current diagnosis for this admission?: Yes Plan: improving - Notes Notes: Patient was reviewed and discussed with Dr. Powers.
[2017-12-05] MEDS ORDERED: DILTIAZEM HCL INJ 25 MG/5 ML VIAL IV PRN (12:00)
[2017-12-05 12:01] LABS: HEMATOCRIT 25.5 % (36.0-47.0); HEMOGLOBIN 8.5 g/dL (12.0-15.5); MEAN CORPUSCULAR HEMOGLOBIN 28.7 pg (27.0-33.4); MEAN CORPUSCULAR HGB CONC 33.5 g/dL (32.0-36.0); MEAN CORPUSCULAR VOLUME 86 fl (80-97); PLATELET COUNT 146 10^3/uL (150-450); RED BLOOD COUNT 2.97 10^6/uL (3.72-5.28); RED CELL DISTRIBUTION WIDTH 17.7 % (11.5-14.0); WHITE BLOOD COUNT 10.6 10^3/uL (4.0-10.5)
[2017-12-05 12:16] LABS: ANION GAP 11 (5-19); BLOOD UREA NITROGEN 57 mg/dL (7-20); CALCIUM 8.3 mg/dL (8.4-10.2); CARBON DIOXIDE 20 mmol/L (22-30); CHLORIDE 112 mmol/L (98-107); GLUCOSE 397 mg/dL (75-110); POTASSIUM 3.6 mmol/L (3.6-5.0)
[2017-12-05 12:24] LABS: ABSOLUTE LYMPHOCYTES# (MANUAL) 0.1 10^3/uL (0.5-4.7); ABSOLUTE MONOCYTES # (MANUAL) 0.3 10^3/uL (0.1-1.4); ABSOLUTE NEUTROPHILS# (MANUAL) 10.2 10^3/uL (1.7-8.2); BAND NEUTROPHILS % (MANUAL) 1 % (3-5); BASOPHILS % (MANUAL) 0 % (0-2); EOSINOPHILS % (MANUAL) 0 % (0-6); LYMPHOCYTES % (MANUAL) 1 % (13-45); METAMYELOCYTES % (MANUAL) 1 % (0); MONOCYTES % (MANUAL) 3 % (3-13); NUCLEATED RED BLOOD CELLS 1 /100 WBC (0); SEGMENTED NEUTROPHILS % (MAN) 94 % (42-78); TOTAL CELLS COUNTED 100
[2017-12-05 12:25] LABS: ANISOCYTOSIS 1+; OVALOCYTES 1+; PLATELET COMMENT DECREASED; POIKILOCYTOSIS 1+; TEAR DROP CELLS 1+
--- NOTE | 2017-12-05 12:44 | PDOC PROGRESS REPORT ---
Subjective Progress Note for:: 12/05/17 Subjective:: Asked to see patient again by Dr. Heller because of atrial flutter with 2-1 conduction and rapid ventricular response. Patient noted to be going back into a tachycardic rhythm at heart rate around 150. Close observation of the monitoring strips suggest that patient going back and forth into atrial flutter with 2-1 conduction. Patient was made to cough hard and it converted patient back to sinus rhythm. Have asked patient nurse to give additional Cardizem 180 mg p.o. daily to a total dose of 360 mg. Patient could also receive Cardizem 10 mg IV every hour as needed for heart rate over 120. Patient was however noted to tolerate this heart rate of 150 reasonably well. Pt is denying any chest arm or neck discomfort. Patient still has significant shortness of breath and on oxygen. Patient denying any PND, orthopnea. Patient denied any sustained palpitations, dizziness, syncope, near syncope. Patient denying any fever chills. Patient denying any other significant discomfort. Patient is maintaining sinus rhythm, intermittent switch into atrial flutter with 2-1 conduction noted.. Review of systems: Rest review of systems negative. Medications: Medications have been reviewed. Reason For Visit: COPD ACUTE EXCE,AFIB RVR Physical Exam Vital Signs: Temp Pulse Resp BP Pulse Ox 98.0 F 153 H 16 101/54 L 99 12/05/17 11:51 12/05/17 11:51 12/05/17 11:51 12/05/17 11:51 12/05/17 11:51 Intake & Output 12/04/17 12/05/17 12/06/17 06:59 06:59 06:59 Intake Total 1450 2600 Balance 1450 2600 Weight 51.1 kg 53.1 kg Exam: GENERAL: well-nourished and in no acute distress. Alert and oriented x3 HEAD: Atraumatic, normocephalic. EYES: Pupils equal round and reactive to light, extraocular movements intact, sclera anicteric, conjunctiva are normal. ENT: TMs normal, nares patent, oropharynx clear without exudates. Moist mucous membranes. No oral ulcerations or bleeding gums noted NECK: supple without lymphadenopathy. Trachea is central. No cervical or axillary lymphadenopathy noted. Carotids are 2+, JVD WNL LUNGS: Respiration seems nonlabored, no significant accessory muscle action noted. Bilateral mild wheezes rales or rhonchi noted. No significant dullness noted on percussion. CHEST: Palpation of the chest wall shows no significant chest wall tenderness. No other significant abnormalities noted. 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 ABDOMEN: Soft, no significant tenderness appreciated, normoactive bowel sounds. No guarding, no rebound. No rigidity noted . No masses appreciated. EXTREMITIES: Pedal pulses are 1-2+, no calf tenderness noted. No clubbing or cyanosis.trace pedal edema noted NEUROLOGICAL: Focused neurological exam showed no significant neurologic deficit. Normal speech, no focal weakness appreciated. PSYCH: Normal mood, normal affect. Judgment and insight within normal limits. SKIN: No significant ecchymosis, rash, ulcerations or signs of pruritus noted. MUSCULOSKELETAL EXAM: No significant joint swelling noted. Results Laboratory Results: 12/05/17 11:37 12/05/17 11:37 12/05/17 12/05/17 12/05/17 04:33 05:39 11:37 WBC 10.6 H RBC 2.97 L Hgb 8.5 L Hct 25.5 L MCV 86 MCH 28.7 MCHC 33.5 RDW 17.7 H Plt Count 146 L Seg Neutrophils % Not Reportable Lymphocytes % Not Reportable Monocytes % Not Reportable Eosinophils % Not Reportable Basophils % Not Reportable Absolute Neutrophils Not Reportable Absolute Lymphocytes Not Reportable Absolute Monocytes Not Reportable Absolute Eosinophils Not Reportable Absolute Basophils Not Reportable Carbonic Acid 0.98 L HCO3/H2CO3 Ratio 22:1 ABG pH 7.46 H ABG pCO2 32.4 L ABG pO2 123.0 H ABG HCO3 22.5 ABG O2 Saturation 98.6 H ABG Base Excess -0.7 FiO2 28% Sodium 144.1 Potassium 3.4 L Chloride 113 H Carbon Dioxide 22 Anion Gap 9 BUN 60 H Creatinine 1.28 H Est GFR ( Amer) 49 L Est GFR (Non-Af Amer) 40 L Glucose 270 H Calcium 8.2 L 12/05/17 11:37 WBC RBC Hgb Hct MCV MCH MCHC RDW Plt Count Seg Neutrophils % Lymphocytes % Monocytes % Eosinophils % Basophils % Absolute Neutrophils Absolute Lymphocytes Absolute Monocytes Absolute Eosinophils Absolute Basophils Carbonic Acid HCO3/H2CO3 Ratio ABG pH ABG pCO2 ABG pO2 ABG HCO3 ABG O2 Saturation ABG Base Excess FiO2 Sodium 143.0 Potassium 3.6 Chloride 112 H Carbon Dioxide 20 L Anion Gap 11 BUN 57 H Creatinine 1.31 H Est GFR ( Amer) 48 L Est GFR (Non-Af Amer) 39 L Glucose 397 H Calcium 8.3 L 11/28/17 11/28/17 11/28/17 16:29 16:29 22:57 Creatine Kinase 90 58 CK-MB (CK-2) 2.02 Troponin I 0.033 11/28/17 11/29/17 11/29/17 22:57 05:03 05:03 Creatine Kinase 59 CK-MB (CK-2) 1.27 1.01 Troponin I 0.022 0.019 EKG Comments: Telemetry strips reviewed. It shows intermittent atrial flutter and sinus rhythm. Impressions: Abdomen/Pelvis CT 11/29/17 00:00 IMPRESSION: No acute findings in the abdomen or pelvis. Chest X-Ray 12/02/17 00:00 IMPRESSION: Right basilar infiltrate or atelectasis. Left basilar scarring. Assessment & Plan - Diagnosis (1) Atrial fibrillation with RVR Is this a current diagnosis for this admission?: Yes (2) Anemia Qualifiers: Anemia type: unspecified type Qualified Code(s): D64.9 - Anemia, unspecified Is this a current diagnosis for this admission?: Yes (3) Asthma exacerbation Qualifiers: Asthma severity: unspecified severity Asthma persistence: persistent Qualified Code(s): J45.901 - Unspecified asthma with (acute) exacerbation Is this a current diagnosis for this admission?: Yes (4) Chronic kidney disease Qualifiers: Chronic kidney disease stage: stage 2 (mild) Qualified Code(s): N18.2 - Chronic kidney disease, stage 2 (mild) Is this a current diagnosis for this admission?: Yes (5) Congestive heart failure Qualifiers: Heart failure type: diastolic Heart failure chronicity: chronic Qualified Code(s): I50.32 - Chronic diastolic (congestive) heart failure Is this a current diagnosis for this admission?: Yes (6) Coronary artery disease Qualifiers: Coronary Disease-Associated Artery/Lesion type: unspecified vessel or lesion type Is this a current diagnosis for this admission?: Yes (7) COPD (chronic obstructive pulmonary disease) Qualifiers: COPD type: unspecified COPD Qualified Code(s): J44.9 - Chronic obstructive pulmonary disease, unspecified Is this a current diagnosis for this admission?: Yes (8) Pneumonia Qualifiers: Pneumonia type: due to unspecified organism Laterality: right Lung location: lower lobe of lung Qualified Code(s): J18.1 - Lobar pneumonia, unspecified organism Is this a current diagnosis for this admission?: Yes - Notes Notes: Atrial fibrillation with rapid ventricular response: Patient noted to go into intermittent atrial flutter with rapid ventricular response at 150 bpm. Patient responded to vigorous coughing converting to sinus rhythm. Patient is tolerating multaq therapy. Have increase Cardizem CD to 180 mg p.o. twice daily. Patient seems a borderline candidate for chronic anticoagulation due to increased has bled score CHF: Patient today seems compensated at this point. Watch for volume status on a daily basis. Continue baseline small dose of diuretics. Coronary artery disease: Symptomatically stable. Patient to report any chest pain. Chronic kidney disease: Currently stable patient being followed by quality facilitator. Asthma exacerbation: Continue with bronchodilator and steroid therapy as needed. Patient seems to have severe underlying COPD/asthma. Anemia: Currently stable try maintain hemoglobin above 8 g percent. Gastroenterology following the patient - Time Time Spent with patient: Patient was seen when she was in atrial flutter. Patient made to cough vigorously which resulted in conversion to sinus rhythm. Nurses ordered to give Cardizem CD 180 mg p.o. extra dose and increase to p.o. twice daily from tomorrow. Also gave verbal orders for Cardizem 10 mg IV every hour as needed. May consider adding digoxin if needed. If patient continues with recurrent atrial flutter fibrillation, may need to consider ablation therapy but probably a borderline candidate in view of patient's other significant comorbid diagnosis. Time with patient: Greater than 35 minutes - CODE STATUS was discussed, patient remains full code. Surrogate decision-maker unchanged. Multiple medical problems were addressed. More than 50% of the time spent coordinating care, discussing management plans with involved caregivers. Management plans discussed with involved personnels. Medical decision making was of moderate to high complexity, patient's has multiple comorbidities. Medications reviewed and adjusted accordingly: Yes
[2017-12-05] MEDS ORDERED: DILTIAZEM HCL 90 MG TABLET PO ONE (13:30)
--- NOTE | 2017-12-05 13:54 | RADIOLOGY REPORT (SQ) ---
EXAM DESCRIPTION: CHEST SINGLE VIEW COMPLETED DATE/TIME: 12/05/2017 1:26 pm REASON FOR STUDY: pneumonia COMPARISON: CT chest 11/22/2017 AP chest 11/28/2017, 12/01/2017, 12/02/2017 EXAM PARAMETERS: NUMBER OF VIEWS: One view. TECHNIQUE: Single frontal radiographic view of the chest acquired. RADIATION DOSE: NA LIMITATIONS: None. FINDINGS: LUNGS AND PLEURA: Minimal right basilar airspace disease just above the hemidiaphragm, sim ilar compared to 12/02/2017. MEDIASTINUM AND HILAR STRUCTURES: Retrocardiac hiatal hernia containing the fundus of the stomach. HEART AND VASCULAR STRUCTURES: Mild cardiomegaly BONES: No acute findings. HARDWARE: None in the chest. OTHER: No other significant finding. IMPRESSION: Minimal right basilar airspace disease, atelectasis versus pneumonia. Given the large r etrocardiac hiatal hernia, aspiration should be considered TECHNICAL DOCUMENTATION: JOB ID: [id number] [email or web address]- All Rights Reserved
--- NOTE | 2017-12-05 14:21 | PDOC PROGRESS REPORT ---
Subjective Progress Note for:: 12/05/17 Subjective:: patient tolerated her procedure well did not have any post procedure complications does have maris esophagitis started on antifungal likely due to her steroids and COPD awaiting biopsy in the colon normal anastomotic site ? ulcer, secondary to Crohn's disease Reason For Visit: COPD ACUTE EXCE,AFIB RVR Physical Exam Vital Signs: Temp Pulse Resp BP Pulse Ox 98.0 F 153 H 16 101/54 L 99 12/05/17 11:51 12/05/17 11:51 12/05/17 11:51 12/05/17 11:51 12/05/17 11:51 Intake & Output 12/04/17 12/05/17 12/06/17 06:59 06:59 06:59 Intake Total 1450 2600 237 Balance 1450 2600 237 Weight 51.1 kg 53.1 kg General appearance: PRESENT: mild distress, well-developed, well-nourished Head exam: PRESENT: atraumatic, normocephalic Eye exam: PRESENT: EOMI, PERRLA. ABSENT: nystagmus, periorbital swelling, scleral icterus Mouth exam: PRESENT: moist, neck supple Throat exam: ABSENT: tonsillar exudate, tonsillogmegaly Neck exam: ABSENT: meningismus, tenderness, thyromegaly Respiratory exam: PRESENT: symmetrical, unlabored. ABSENT: tachypnea, wheezes Cardiovascular exam: PRESENT: irregular rhythm, +S1, +S2 GI/Abdominal exam: PRESENT: soft. ABSENT: rebound, rigid, tenderness Extremities exam: ABSENT: joint swelling Neurological exam: PRESENT: oriented to time, oriented to situation, CN II-XII grossly intact Focused psych exam: ABSENT: restlessness Skin exam: PRESENT: normal color. ABSENT: mottled, pallor, petechiae, urticaria , vesicles Results Laboratory Results: 12/05/17 11:37 12/05/17 11:37 12/05/17 12/05/17 12/05/17 04:33 05:39 11:37 WBC 10.6 H RBC 2.97 L Hgb 8.5 L Hct 25.5 L MCV 86 MCH 28.7 MCHC 33.5 RDW 17.7 H Plt Count 146 L Seg Neutrophils % Not Reportable Lymphocytes % Not Reportable Monocytes % Not Reportable Eosinophils % Not Reportable Basophils % Not Reportable Absolute Neutrophils Not Reportable Absolute Lymphocytes Not Reportable Absolute Monocytes Not Reportable Absolute Eosinophils Not Reportable Absolute Basophils Not Reportable Carbonic Acid 0.98 L HCO3/H2CO3 Ratio 22:1 ABG pH 7.46 H ABG pCO2 32.4 L ABG pO2 123.0 H ABG HCO3 22.5 ABG O2 Saturation 98.6 H ABG Base Excess -0.7 FiO2 28% Sodium 144.1 Potassium 3.4 L Chloride 113 H Carbon Dioxide 22 Anion Gap 9 BUN 60 H Creatinine 1.28 H Est GFR ( Amer) 49 L Est GFR (Non-Af Amer) 40 L Glucose 270 H Calcium 8.2 L 12/05/17 11:37 WBC RBC Hgb Hct MCV MCH MCHC RDW Plt Count Seg Neutrophils % Lymphocytes % Monocytes % Eosinophils % Basophils % Absolute Neutrophils Absolute Lymphocytes Absolute Monocytes Absolute Eosinophils Absolute Basophils Carbonic Acid HCO3/H2CO3 Ratio ABG pH ABG pCO2 ABG pO2 ABG HCO3 ABG O2 Saturation ABG Base Excess FiO2 Sodium 143.0 Potassium 3.6 Chloride 112 H Carbon Dioxide 20 L Anion Gap 11 BUN 57 H Creatinine 1.31 H Est GFR ( Amer) 48 L Est GFR (Non-Af Amer) 39 L Glucose 397 H Calcium 8.3 L 11/28/17 11/28/17 11/28/17 16:29 16:29 22:57 Creatine Kinase 90 58 CK-MB (CK-2) 2.02 Troponin I 0.033 11/28/17 11/29/17 11/29/17 22:57 05:03 05:03 Creatine Kinase 59 CK-MB (CK-2) 1.27 1.01 Troponin I 0.022 0.019 Impressions: Abdomen/Pelvis CT 11/29/17 00:00 IMPRESSION: No acute findings in the abdomen or pelvis. Chest X-Ray 12/05/17 00:00 IMPRESSION: Minimal right basilar airspace disease, atelectasis versus pneumonia. Given the large retrocardiac hiatal hernia, aspiration should be considered Assessment & Plan - Diagnosis (3) Anemia of chronic disease Is this a current diagnosis for this admission?: Yes (4) Maris esophagitis Plan: being treated with diflucan still waiting on final biopsies to be read patient will need follow up she does not have ulcerative or pseudomembranous colitis further recommendations to follow - Time Time Spent with patient: 15-24 minutes
[2017-12-05] MEDS: HUM INSULIN NPH/REG INSULIN HM 100 UNIT/1 ML 3 ML SUBCUT SCH (18:10)
[2017-12-05] MEDS: MONTELUKAST SODIUM 10 MG TABLET PO SCH (21:42)
[2017-12-06] MEDS: LEVALBUTEROL HCL NEB 0.63 MG/3 ML AMPUL NEB SCH ×5 (03:20→19:52)
[2017-12-06] MEDS: ACETAMINOPHEN 325 MG TABLET PO PRN ×2 (03:50→22:39)
[2017-12-06] MEDS: CLINDAMYCIN 600 MG/D5W RTU 600 MG/50 ML RTUPB IV SCH ×3 (05:08→22:34)
[2017-12-06] MEDS: LANSOPRAZOLE 15 MG TAB.RAP.DR PO SCH ×2 (05:08→17:32)
[2017-12-06] MEDS: METHYLPREDNISOLONE INJ 40 MG/1 ML SDV IV SCH ×3 (05:08→22:31)
[2017-12-06] MEDS: GABAPENTIN 400 MG CAPSULE PO SCH ×3 (05:08→22:32)
[2017-12-06] MEDS: HEPARIN SOD (PORCINE) 5,000 UNIT/ML 1 ML SYRINGE SUBCUT SCH ×3 (05:09→22:30)
[2017-12-06 05:53] LABS: HEMOGLOBIN 8.3 g/dL (12.0-15.5); MEAN CORPUSCULAR HEMOGLOBIN 28.5 pg (27.0-33.4); MEAN CORPUSCULAR HGB CONC 33.1 g/dL (32.0-36.0); MEAN CORPUSCULAR VOLUME 86 fl (80-97); PLATELET COUNT 141 10^3/uL (150-450); RED CELL DISTRIBUTION WIDTH 17.3 % (11.5-14.0); WHITE BLOOD COUNT 10.7 10^3/uL (4.0-10.5)
[2017-12-06 05:59] LABS: ANION GAP 7 (5-19); BLOOD UREA NITROGEN 55 mg/dL (7-20); CALCIUM 8.3 mg/dL (8.4-10.2); CARBON DIOXIDE 22 mmol/L (22-30); CHLORIDE 110 mmol/L (98-107); GLUCOSE 276 mg/dL (75-110); POTASSIUM 3.6 mmol/L (3.6-5.0); SODIUM 139.4 mmol/L (137-145)
[2017-12-06 06:15] LABS: ABSOLUTE MONOCYTES # (MANUAL) 0.1 10^3/uL (0.1-1.4); ABSOLUTE NEUTROPHILS# (MANUAL) 10.6 10^3/uL (1.7-8.2); BAND NEUTROPHILS % (MANUAL) 2 % (3-5); BASOPHILS % (MANUAL) 0 % (0-2); EOSINOPHILS % (MANUAL) 0 % (0-6); LYMPHOCYTES % (MANUAL) 0 % (13-45); MONOCYTES % (MANUAL) 1 % (3-13); NUCLEATED RED BLOOD CELLS 3 /100 WBC (0); SEGMENTED NEUTROPHILS % (MAN) 97 % (42-78); TOTAL CELLS COUNTED 100
[2017-12-06 06:18] LABS: ANISOCYTOSIS 1+; OVALOCYTES 2+; PLATELET COMMENT ADEQUATE; PLATELET LARGE PRESENT; POIKILOCYTOSIS 1+; SCHISTOCYTES SLIGHT; TEAR DROP CELLS 1+; TOXIC GRANULATION 1+
[2017-12-06] MEDS: INSULIN LISPRO 100 UNIT/ML 3 ML VIAL SUBCUT PRN ×4 (06:30→22:30)
[2017-12-06] MEDS: BUDESONIDE NEB 0.5 MG/2 ML AMPUL NEB SCH ×2 (08:34→19:52)
--- NOTE | 2017-12-06 09:57 | PDOC PROGRESS REPORT ---
Subjective Progress Note for:: 12/06/17 Subjective:: Patient is feeling much better this morning compared to yesterday Since Cardizem dose was adjusted by Dr. Todd Patient's denied any chest pain denied any shortness of the breath but still very weak Reason For Visit: COPD ACUTE EXCE,AFIB RVR Physical Exam Vital Signs: Temp Pulse Resp BP Pulse Ox 98.4 F 81 18 132/62 H 100 12/06/17 08:03 12/06/17 08:35 12/06/17 08:35 12/06/17 08:03 12/06/17 08:35 Intake & Output 12/05/17 12/06/17 12/07/17 06:59 06:59 06:59 Intake Total 2600 1735 Balance 2600 1735 Weight 53.1 kg 54.2 kg General appearance: PRESENT: no acute distress, well-developed, well-nourished Head exam: PRESENT: atraumatic, normocephalic Eye exam: PRESENT: conjunctiva pink, EOMI, PERRLA. ABSENT: scleral icterus Ear exam: PRESENT: normal external ear exam Mouth exam: PRESENT: moist, tongue midline Neck exam: PRESENT: full ROM. ABSENT: carotid bruit, JVD, lymphadenopathy, thyromegaly Respiratory exam: PRESENT: decreased breath sounds Cardiovascular exam: PRESENT: RRR. ABSENT: diastolic murmur, rubs, systolic murmur Pulses: PRESENT: normal dorsalis pedis pul, +2 pedal pulses bilateral Vascular exam: PRESENT: normal capillary refill GI/Abdominal exam: PRESENT: normal bowel sounds, soft. ABSENT: distended, guarding, mass, organolmegaly, rebound, tenderness Rectal exam: PRESENT: deferred Extremities exam: ABSENT: pedal edema Musculoskeletal exam: PRESENT: ambulatory Neurological exam: PRESENT: alert, awake, oriented to person, oriented to place , oriented to time, oriented to situation, CN II-XII grossly intact. ABSENT: motor sensory deficit Psychiatric exam: PRESENT: appropriate affect, normal mood. ABSENT: homicidal ideation, suicidal ideation Skin exam: PRESENT: dry, intact, warm. ABSENT: cyanosis, rash Results Laboratory Results: 12/06/17 05:05 12/06/17 05:05 12/05/17 12/05/17 12/06/17 11:37 11:37 05:05 WBC 10.6 H 10.7 H RBC 2.97 L 2.90 L Hgb 8.5 L 8.3 L Hct 25.5 L 25.0 L MCV 86 86 MCH 28.7 28.5 MCHC 33.5 33.1 RDW 17.7 H 17.3 H Plt Count 146 L 141 L Seg Neutrophils % Not Reportable Not Reportable Lymphocytes % Not Reportable Not Reportable Monocytes % Not Reportable Not Reportable Eosinophils % Not Reportable Not Reportable Basophils % Not Reportable Not Reportable Absolute Neutrophils Not Reportable Not Reportable Absolute Lymphocytes Not Reportable Not Reportable Absolute Monocytes Not Reportable Not Reportable Absolute Eosinophils Not Reportable Not Reportable Absolute Basophils Not Reportable Not Reportable Sodium 143.0 Potassium 3.6 Chloride 112 H Carbon Dioxide 20 L Anion Gap 11 BUN 57 H Creatinine 1.31 H Est GFR ( Amer) 48 L Est GFR (Non-Af Amer) 39 L Glucose 397 H Calcium 8.3 L 12/06/17 05:05 WBC RBC Hgb Hct MCV MCH MCHC RDW Plt Count Seg Neutrophils % Lymphocytes % Monocytes % Eosinophils % Basophils % Absolute Neutrophils Absolute Lymphocytes Absolute Monocytes Absolute Eosinophils Absolute Basophils Sodium 139.4 Potassium 3.6 Chloride 110 H Carbon Dioxide 22 Anion Gap 7 BUN 55 H Creatinine 1.31 H Est GFR ( Amer) 48 L Est GFR (Non-Af Amer) 39 L Glucose 276 H Calcium 8.3 L 11/28/17 11/28/17 11/28/17 16:29 16:29 22:57 Creatine Kinase 90 58 CK-MB (CK-2) 2.02 Troponin I 0.033 11/28/17 11/29/17 11/29/17 22:57 05:03 05:03 Creatine Kinase 59 CK-MB (CK-2) 1.27 1.01 Troponin I 0.022 0.019 Impressions: Abdomen/Pelvis CT 11/29/17 00:00 IMPRESSION: No acute findings in the abdomen or pelvis. Chest X-Ray 12/05/17 00:00 IMPRESSION: Minimal right basilar airspace disease, atelectasis versus pneumonia. Given the large retrocardiac hiatal hernia, aspiration should be considered Assessment & Plan - Diagnosis (1) Asthma exacerbation Qualifiers: Asthma severity: unspecified severity Asthma persistence: persistent Qualified Code(s): J45.901 - Unspecified asthma with (acute) exacerbation Is this a current diagnosis for this admission?: Yes Plan: Is getting better will reduce the steroid (2) Respiratory distress Is this a current diagnosis for this admission?: Yes Plan: Due to the above conditions we will consult the pulmonary for the patient's have a significant history of the pulmonary disease and patient's already seen by Dr. Patino'lucille last week (3) Atrial fibrillation with RVR Is this a current diagnosis for this admission?: Yes Plan: Continues to p.o. Cardizem's 180 twice a day (4) Pneumonia Qualifiers: Pneumonia type: due to unspecified organism Laterality: right Lung location: lower lobe of lung Qualified Code(s): J18.1 - Lobar pneumonia, unspecified organism Is this a current diagnosis for this admission?: Yes Plan: With MRSA continues to clindamycin's and current other medications (5) Congestive heart failure Qualifiers: Heart failure type: diastolic Heart failure chronicity: chronic Qualified Code(s): I50.32 - Chronic diastolic (congestive) heart failure Is this a current diagnosis for this admission?: Yes Plan: Continues to Lasix (6) Coronary artery disease Qualifiers: Coronary Disease-Associated Artery/Lesion type: unspecified vessel or lesion type Is this a current diagnosis for this admission?: Yes Plan: Currently all stable (7) Anemia Qualifiers: Anemia type: unspecified type Qualified Code(s): D64.9 - Anemia, unspecified Is this a current diagnosis for this admission?: Yes Plan: Patient hemoglobin drop less than 8 we will transfuse 1 unit of the blood (8) Chronic kidney disease Qualifiers: Chronic kidney disease stage: stage 2 (mild) Qualified Code(s): N18.2 - Chronic kidney disease, stage 2 (mild) Is this a current diagnosis for this admission?: Yes Plan: Currently all improving (9) Osteoarthritis Qualifiers: Laterality: unspecified laterality Is this a current diagnosis for this admission?: Yes (10) Addisons disease Is this a current diagnosis for this admission?: Yes Plan: Continues IV steroid - Time Time Spent with patient: 15-24 minutes Medications reviewed and adjusted accordingly: Yes Anticipated discharge: SNF Within: Other - Inpatient Certification Medical Necessity: Need Close Monitoring Due to Risk of Patient Decompensation, Need for IV Antibiotics Post Hospital Care: D/C Contingents Supervisor Documentation - Plan Summary Plan Summary: If the patient's remain stable may be the weekends change to IV clindamycin's to the p.o. clindamycin's and continues to Diflucan and may be a cut down the IV steroid to the p.o. steroid 40 mg daily Discussed with the patient and the daughters were the patient on ongoing chronic comorbidity with ongoing weakness is to go to the rehab will consult the planner internship
[2017-12-06] MEDS ORDERED: DILTIAZEM HCL 90 MG TABLET PO SCH (10:00)
[2017-12-06] MEDS ORDERED: DILTIAZEM HCL INJ 25 MG/5 ML VIAL IV PRN (10:30)
[2017-12-06] MEDS: LACTOBACILLUS ACIDOPHILUS 250 MG TAB PO SCH ×2 (10:42→17:32)
[2017-12-06] MEDS: DRONEDARONE HYDROCHLORIDE 400 MG TABLET PO SCH ×2 (10:42→22:34)
[2017-12-06] MEDS: FUROSEMIDE 40 MG TABLET PO SCH (10:42)
[2017-12-06] MEDS: HUM INSULIN NPH/REG INSULIN HM 100 UNIT/1 ML 3 ML SUBCUT SCH ×2 (10:42→17:31)
[2017-12-06] MEDS: LEVOFLOXACIN 500 MG TABLET PO SCH (10:42)
[2017-12-06] MEDS: FERROUS SULFATE 325 MG TABLET PO SCH (10:42)
[2017-12-06] MEDS: POTASSIUM CHLORIDE 10 MEQ TABLET.SA PO SCH (10:43)
[2017-12-06] MEDS: FLUCONAZOLE 100 MG TABLET PO SCH (10:43)
[2017-12-06] MEDS ORDERED: DILTIAZEM HCL 180 MG CAPSULE.CR PO ONE (11:00)
--- NOTE | 2017-12-06 11:17 | PDOC PROGRESS REPORT ---
Subjective Progress Note for:: 12/06/17 Subjective:: Patient was sitting up in bed and did not appear to be short of breath. She said that she is only getting short of breath when she moves around a lot. According to the nursing staff she is set for possible discharge to a rehab facility on Saturday or Saturday. Reason For Visit: COPD ACUTE EXCE,AFIB RVR Physical Exam Vital Signs: Temp Pulse Resp BP Pulse Ox 98.4 F 81 18 132/62 H 100 12/06/17 08:03 12/06/17 08:35 12/06/17 08:35 12/06/17 08:03 12/06/17 08:35 Intake & Output 12/05/17 12/06/17 12/07/17 06:59 06:59 06:59 Intake Total 2600 1735 Balance 2600 1735 Weight 53.1 kg 54.2 kg General appearance: PRESENT: no acute distress, well-developed, well-nourished Respiratory exam: PRESENT: crackles, rhonchi, wheezes. ABSENT: accessory muscle use, clear to auscultation koko Cardiovascular exam: PRESENT: +S1, +S2 GI/Abdominal exam: PRESENT: normal bowel sounds, soft. ABSENT: distended, firm , organomegaly, tenderness Extremities exam: PRESENT: pedal edema, +1 edema. ABSENT: tenderness Musculoskeletal exam: PRESENT: normal inspection. ABSENT: tenderness Neurological exam: PRESENT: alert, awake, oriented to person, oriented to place , oriented to time, oriented to situation Psychiatric exam: PRESENT: appropriate affect, normal mood Skin exam: PRESENT: dry, intact, warm Results Laboratory Results: 12/06/17 05:05 12/06/17 05:05 12/05/17 12/05/17 12/06/17 11:37 11:37 05:05 WBC 10.6 H 10.7 H RBC 2.97 L 2.90 L Hgb 8.5 L 8.3 L Hct 25.5 L 25.0 L MCV 86 86 MCH 28.7 28.5 MCHC 33.5 33.1 RDW 17.7 H 17.3 H Plt Count 146 L 141 L Seg Neutrophils % Not Reportable Not Reportable Lymphocytes % Not Reportable Not Reportable Monocytes % Not Reportable Not Reportable Eosinophils % Not Reportable Not Reportable Basophils % Not Reportable Not Reportable Absolute Neutrophils Not Reportable Not Reportable Absolute Lymphocytes Not Reportable Not Reportable Absolute Monocytes Not Reportable Not Reportable Absolute Eosinophils Not Reportable Not Reportable Absolute Basophils Not Reportable Not Reportable Sodium 143.0 Potassium 3.6 Chloride 112 H Carbon Dioxide 20 L Anion Gap 11 BUN 57 H Creatinine 1.31 H Est GFR ( Amer) 48 L Est GFR (Non-Af Amer) 39 L Glucose 397 H Calcium 8.3 L 12/06/17 05:05 WBC RBC Hgb Hct MCV MCH MCHC RDW Plt Count Seg Neutrophils % Lymphocytes % Monocytes % Eosinophils % Basophils % Absolute Neutrophils Absolute Lymphocytes Absolute Monocytes Absolute Eosinophils Absolute Basophils Sodium 139.4 Potassium 3.6 Chloride 110 H Carbon Dioxide 22 Anion Gap 7 BUN 55 H Creatinine 1.31 H Est GFR ( Amer) 48 L Est GFR (Non-Af Amer) 39 L Glucose 276 H Calcium 8.3 L 11/28/17 11/28/17 11/28/17 16:29 16:29 22:57 Creatine Kinase 90 58 CK-MB (CK-2) 2.02 Troponin I 0.033 11/28/17 11/29/17 11/29/17 22:57 05:03 05:03 Creatine Kinase 59 CK-MB (CK-2) 1.27 1.01 Troponin I 0.022 0.019 Impressions: Abdomen/Pelvis CT 11/29/17 00:00 IMPRESSION: No acute findings in the abdomen or pelvis. Chest X-Ray 12/05/17 00:00 IMPRESSION: Minimal right basilar airspace disease, atelectasis versus pneumonia. Given the large retrocardiac hiatal hernia, aspiration should be considered Assessment & Plan - Diagnosis (1) DIONNE (acute kidney injury) Plan: looks to be at baseline, at this point her kidneys are stable for discharge. She should follow at Dr. Powers office in 2 weeks. (2) CKD stage 3 due to type 1 diabetes mellitus Plan: manage as outpatient (3) Anemia Qualifiers: Anemia type: unspecified type Qualified Code(s): D64.9 - Anemia, unspecified Is this a current diagnosis for this admission?: Yes Plan: patient looks like she will need procrit weekly until hemoglobin starts to improve. (4) Hypokalemia Plan: stable (5) Atrial fibrillation with RVR Is this a current diagnosis for this admission?: Yes Plan: managed by cardiology (6) Congestive heart failure Qualifiers: Heart failure type: diastolic Heart failure chronicity: chronic Qualified Code(s): I50.32 - Chronic diastolic (congestive) heart failure Is this a current diagnosis for this admission?: Yes Plan: Improving on lasix (7) Pneumonia Qualifiers: Pneumonia type: due to unspecified organism Laterality: right Lung location: lower lobe of lung Qualified Code(s): J18.1 - Lobar pneumonia, unspecified organism Is this a current diagnosis for this admission?: Yes Plan: on IV clindamycin, being switched to PO to prepare for discharge (8) Respiratory distress Is this a current diagnosis for this admission?: Yes Plan: improving - Notes Notes: Patients case was reviewed and discussed with Dr. Powers.
--- NOTE | 2017-12-06 11:46 | PDOC PROGRESS REPORT ---
Subjective Progress Note for:: 12/06/17 Subjective:: Patient seen and examined. She has been seen by cardiology and has had some of her medications adjusted. Biopsies from her colonoscopy to show areas of acute versus chronic inflammation. There is no malignancy. She did have a history of ulcerative colitis but that also may be more consistent with Crohn's disease. She did have a WANG stain that was positive for fungus she has been on Diflucan. That should resolve her dysphagia. As an outpatient she can get immunologic studies to indicate if she does have inflammatory bowel disease and can be treated as such. No postprocedure bleeding has been noted She has been tolerating a diet. Reason For Visit: COPD ACUTE EXCE,AFIB RVR Physical Exam Vital Signs: Temp Pulse Resp BP Pulse Ox 98.4 F 81 18 132/62 H 100 12/06/17 08:03 12/06/17 08:35 12/06/17 08:35 12/06/17 08:03 12/06/17 08:35 Intake & Output 12/05/17 12/06/17 12/07/17 06:59 06:59 06:59 Intake Total 2600 1735 Balance 2600 1735 Weight 53.1 kg 54.2 kg General appearance: PRESENT: no acute distress, well-developed, well-nourished Head exam: PRESENT: atraumatic, normocephalic Eye exam: PRESENT: EOMI, PERRLA. ABSENT: nystagmus, periorbital swelling, scleral icterus Mouth exam: PRESENT: moist, neck supple Throat exam: ABSENT: tonsillar exudate, tonsillogmegaly Neck exam: ABSENT: meningismus, tenderness, thyromegaly Respiratory exam: PRESENT: symmetrical, unlabored. ABSENT: wheezes Cardiovascular exam: PRESENT: +S1, +S2 GI/Abdominal exam: PRESENT: soft. ABSENT: rebound, rigid, tenderness Extremities exam: ABSENT: joint swelling Musculoskeletal exam: PRESENT: full ROM Neurological exam: PRESENT: oriented to time, oriented to situation, CN II-XII grossly intact Focused psych exam: ABSENT: restlessness Skin exam: PRESENT: normal color. ABSENT: mottled, pallor, petechiae, urticaria , vesicles Results Laboratory Results: 12/06/17 05:05 12/06/17 05:05 12/05/17 12/05/17 12/06/17 11:37 11:37 05:05 WBC 10.6 H 10.7 H RBC 2.97 L 2.90 L Hgb 8.5 L 8.3 L Hct 25.5 L 25.0 L MCV 86 86 MCH 28.7 28.5 MCHC 33.5 33.1 RDW 17.7 H 17.3 H Plt Count 146 L 141 L Seg Neutrophils % Not Reportable Not Reportable Lymphocytes % Not Reportable Not Reportable Monocytes % Not Reportable Not Reportable Eosinophils % Not Reportable Not Reportable Basophils % Not Reportable Not Reportable Absolute Neutrophils Not Reportable Not Reportable Absolute Lymphocytes Not Reportable Not Reportable Absolute Monocytes Not Reportable Not Reportable Absolute Eosinophils Not Reportable Not Reportable Absolute Basophils Not Reportable Not Reportable Sodium 143.0 Potassium 3.6 Chloride 112 H Carbon Dioxide 20 L Anion Gap 11 BUN 57 H Creatinine 1.31 H Est GFR ( Amer) 48 L Est GFR (Non-Af Amer) 39 L Glucose 397 H Calcium 8.3 L 12/06/17 05:05 WBC RBC Hgb Hct MCV MCH MCHC RDW Plt Count Seg Neutrophils % Lymphocytes % Monocytes % Eosinophils % Basophils % Absolute Neutrophils Absolute Lymphocytes Absolute Monocytes Absolute Eosinophils Absolute Basophils Sodium 139.4 Potassium 3.6 Chloride 110 H Carbon Dioxide 22 Anion Gap 7 BUN 55 H Creatinine 1.31 H Est GFR ( Amer) 48 L Est GFR (Non-Af Amer) 39 L Glucose 276 H Calcium 8.3 L 11/28/17 11/28/17 11/28/17 16:29 16:29 22:57 Creatine Kinase 90 58 CK-MB (CK-2) 2.02 Troponin I 0.033 11/28/17 11/29/17 11/29/17 22:57 05:03 05:03 Creatine Kinase 59 CK-MB (CK-2) 1.27 1.01 Troponin I 0.022 0.019 Impressions: Abdomen/Pelvis CT 11/29/17 00:00 IMPRESSION: No acute findings in the abdomen or pelvis. Chest X-Ray 12/05/17 00:00 IMPRESSION: Minimal right basilar airspace disease, atelectasis versus pneumonia. Given the large retrocardiac hiatal hernia, aspiration should be considered Assessment & Plan - Diagnosis (3) Anemia of chronic disease Is this a current diagnosis for this admission?: Yes (4) Maris esophagitis Plan: Dysphagia is improving Continue Diflucan for week If she has renal issues and may be more appropriate to start nystatin swish and swallow Can follow-up as an outpatient ENT follow-up for dysphagia were to continue (5) Colon ulcer Plan: Outpatient immunologic testing to clarify if this is inflammatory bowel disease. Biopsies are negative for malignancy. She will need outpatient follow-up colonoscopy at some point to document healing of the ulcer. She will need propofol sedation at that point in time. - Time Time Spent with patient: 15-24 minutes
--- NOTE | 2017-12-06 12:16 | PDOC PROGRESS REPORT ---
Subjective Progress Note for:: 12/06/17 Subjective:: Pt is denying any chest arm or neck discomfort. Patient still has significant shortness of breath and on oxygen. Patient denying any PND, orthopnea. Patient denied any sustained palpitations, dizziness, syncope, near syncope. Patient denying any fever chills. Patient denying any other significant discomfort. Patient is maintaining sinus rhythm. There has been no recurrence of atrial flutter fibrillation since yesterday morning. Review of systems: Rest review of systems negative. Medications: Medications have been reviewed. Reason For Visit: COPD ACUTE EXCE,AFIB RVR Physical Exam Vital Signs: Temp Pulse Resp BP Pulse Ox 98.4 F 78 16 132/62 H 98 12/06/17 08:03 12/06/17 11:49 12/06/17 11:49 12/06/17 08:03 12/06/17 11:49 Intake & Output 12/05/17 12/06/17 12/07/17 06:59 06:59 06:59 Intake Total 2600 1735 Balance 2600 1735 Weight 53.1 kg 54.2 kg Exam: GENERAL: well-nourished and in no acute distress. Alert and oriented x3 HEAD: Atraumatic, normocephalic. EYES: Pupils equal round and reactive to light, extraocular movements intact, sclera anicteric, conjunctiva are normal. ENT: TMs normal, nares patent, oropharynx clear without exudates. Moist mucous membranes. No oral ulcerations or bleeding gums noted NECK: supple without lymphadenopathy. Trachea is central. No cervical or axillary lymphadenopathy noted. Carotids are 2+, JVD WNL LUNGS: Respiration seems nonlabored, no significant accessory muscle action noted. Bilateral mild wheezes rales or rhonchi noted. No significant dullness noted on percussion. CHEST: Palpation of the chest wall shows no significant chest wall tenderness. No other significant abnormalities noted. HEART: [place] [employer], No PSH, 1/6 ROLY aortic area, 1/6 tran systolic murmur mitral area, no rubs, no gallops. ABDOMEN: Soft, no significant tenderness appreciated, normoactive bowel sounds. No guarding, no rebound. No rigidity noted . No masses appreciated. EXTREMITIES: Pedal pulses are 1-2+, no calf tenderness noted. No clubbing or cyanosis.trace pedal edema noted NEUROLOGICAL: Focused neurological exam showed no significant neurologic deficit. Normal speech, no focal weakness appreciated. PSYCH: Normal mood, normal affect. Judgment and insight within normal limits. SKIN: No significant ecchymosis, rash, ulcerations or signs of pruritus noted. MUSCULOSKELETAL EXAM: No significant joint swelling noted. Results Laboratory Results: 12/06/17 05:05 12/06/17 05:05 12/05/17 12/05/17 12/06/17 11:37 11:37 05:05 WBC 10.6 H 10.7 H RBC 2.97 L 2.90 L Hgb 8.5 L 8.3 L Hct 25.5 L 25.0 L MCV 86 86 MCH 28.7 28.5 MCHC 33.5 33.1 RDW 17.7 H 17.3 H Plt Count 146 L 141 L Seg Neutrophils % Not Reportable Lymphocytes % Not Reportable Monocytes % Not Reportable Eosinophils % Not Reportable Basophils % Not Reportable Absolute Neutrophils Not Reportable Absolute Lymphocytes Not Reportable Absolute Monocytes Not Reportable Absolute Eosinophils Not Reportable Absolute Basophils Not Reportable Sodium 143.0 Potassium 3.6 Chloride 112 H Carbon Dioxide 20 L Anion Gap 11 BUN 57 H Creatinine 1.31 H Est GFR ( Amer) 48 L Est GFR (Non-Af Amer) 39 L Glucose 397 H Calcium 8.3 L 12/06/17 05:05 WBC RBC Hgb Hct MCV MCH MCHC RDW Plt Count Seg Neutrophils % Lymphocytes % Monocytes % Eosinophils % Basophils % Absolute Neutrophils Absolute Lymphocytes Absolute Monocytes Absolute Eosinophils Absolute Basophils Sodium 139.4 Potassium 3.6 Chloride 110 H Carbon Dioxide 22 Anion Gap 7 BUN 55 H Creatinine 1.31 H Est GFR ( Amer) 48 L Est GFR (Non-Af Amer) 39 L Glucose 276 H Calcium 8.3 L 11/28/17 11/28/17 11/28/17 16:29 16:29 22:57 Creatine Kinase 90 58 CK-MB (CK-2) 2.02 Troponin I 0.033 11/28/17 11/29/17 11/29/17 22:57 05:03 05:03 Creatine Kinase 59 CK-MB (CK-2) 1.27 1.01 Troponin I 0.022 0.019 EKG Comments: Telemetry strip shows sinus rhythm. No recurrence of atrial flutter fibrillation since yesterday morning. Impressions: Abdomen/Pelvis CT 11/29/17 00:00 IMPRESSION: No acute findings in the abdomen or pelvis. Chest X-Ray 12/05/17 00:00 IMPRESSION: Minimal right basilar airspace disease, atelectasis versus pneumonia. Given the large retrocardiac hiatal hernia, aspiration should be considered Assessment & Plan - Diagnosis (1) Atrial fibrillation with RVR Is this a current diagnosis for this admission?: Yes (2) Anemia Qualifiers: Anemia type: unspecified type Qualified Code(s): D64.9 - Anemia, unspecified Is this a current diagnosis for this admission?: Yes (3) Asthma exacerbation Qualifiers: Asthma severity: unspecified severity Asthma persistence: persistent Qualified Code(s): J45.901 - Unspecified asthma with (acute) exacerbation Is this a current diagnosis for this admission?: Yes (4) Chronic kidney disease Qualifiers: Chronic kidney disease stage: stage 2 (mild) Qualified Code(s): N18.2 - Chronic kidney disease, stage 2 (mild) Is this a current diagnosis for this admission?: Yes (5) Congestive heart failure Qualifiers: Heart failure type: diastolic Heart failure chronicity: chronic Qualified Code(s): I50.32 - Chronic diastolic (congestive) heart failure Is this a current diagnosis for this admission?: Yes (6) Coronary artery disease Qualifiers: Coronary Disease-Associated Artery/Lesion type: unspecified vessel or lesion type Is this a current diagnosis for this admission?: Yes (7) COPD (chronic obstructive pulmonary disease) Qualifiers: COPD type: unspecified COPD Qualified Code(s): J44.9 - Chronic obstructive pulmonary disease, unspecified Is this a current diagnosis for this admission?: Yes (8) Pneumonia Qualifiers: Pneumonia type: due to unspecified organism Laterality: right Lung location: lower lobe of lung Qualified Code(s): J18.1 - Lobar pneumonia, unspecified organism Is this a current diagnosis for this admission?: Yes - Notes Notes: Atrial fibrillation with rapid ventricular response: Since yesterday morning maintaining sinus rhythm. Yesterday patient responded to vigorous coughing converting to sinus rhythm. Patient is tolerating multaq therapy. Have increase Cardizem CD to 180 mg p.o. twice daily. Patient seems a borderline candidate for chronic anticoagulation due to increased has bled score CHF: Patient today seems compensated at this point. Watch for volume status on a daily basis. Continue baseline small dose of diuretics. Coronary artery disease: Symptomatically stable. Patient to report any chest pain. 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 Asthma exacerbation: Continue with bronchodilator and steroid therapy as needed. Patient seems to have severe underlying COPD/asthma. Anemia: Currently stable try maintain hemoglobin above 8 g percent. Gastroenterology following the patient. Gastroenterology seen the patient and advised antifungal treatment for presumed esophageal candidiasis. - Time Time with patient: 15-25 minutes - CODE STATUS was discussed, patient remains full code. Surrogate decision-maker unchanged. Multiple medical problems were addressed. More than 50% of the time spent coordinating care, discussing management plans with involved caregivers. Management plans discussed with involved personnels. Medical decision making was of moderate to high complexity , patient's has multiple comorbidities. Medications reviewed and adjusted accordingly: Yes
[2017-12-06] MEDS: MONTELUKAST SODIUM 10 MG TABLET PO SCH (22:31)
[2017-12-06] MEDS: DILTIAZEM HCL 180 MG CAPSULE.CR PO SCH (22:32)
[2017-12-07] MEDS: LEVALBUTEROL HCL NEB 0.63 MG/3 ML AMPUL NEB SCH ×7 (00:24→23:22)
[2017-12-07] MEDS: CLINDAMYCIN 600 MG/D5W RTU 600 MG/50 ML RTUPB IV SCH ×3 (05:08→22:37)
[2017-12-07] MEDS: ACETAMINOPHEN 325 MG TABLET PO PRN (05:09)
[2017-12-07] MEDS: GABAPENTIN 400 MG CAPSULE PO SCH ×3 (05:09→22:38)
[2017-12-07] MEDS: HEPARIN SOD (PORCINE) 5,000 UNIT/ML 1 ML SYRINGE SUBCUT SCH ×3 (05:10→22:35)
[2017-12-07] MEDS: METHYLPREDNISOLONE INJ 40 MG/1 ML SDV IV SCH ×3 (05:10→22:37)
[2017-12-07] MEDS: LANSOPRAZOLE 15 MG TAB.RAP.DR PO SCH ×2 (05:11→18:21)
[2017-12-07 05:43] LABS: HEMATOCRIT 26.9 % (36.0-47.0); HEMOGLOBIN 8.9 g/dL (12.0-15.5); MEAN CORPUSCULAR HEMOGLOBIN 28.5 pg (27.0-33.4); MEAN CORPUSCULAR VOLUME 86 fl (80-97); PLATELET COUNT 149 10^3/uL (150-450); RED BLOOD COUNT 3.11 10^6/uL (3.72-5.28); RED CELL DISTRIBUTION WIDTH 17.8 % (11.5-14.0); WHITE BLOOD COUNT 15.7 10^3/uL (4.0-10.5)
[2017-12-07 05:55] LABS: ANION GAP 13 (5-19); BLOOD UREA NITROGEN 45 mg/dL (7-20); CALCIUM 8.5 mg/dL (8.4-10.2); CARBON DIOXIDE 19 mmol/L (22-30); CHLORIDE 111 mmol/L (98-107); GLUCOSE 264 mg/dL (75-110); POTASSIUM 3.1 mmol/L (3.6-5.0); SODIUM 142.9 mmol/L (137-145)
[2017-12-07 06:08] LABS: ABSOLUTE LYMPHOCYTES# (MANUAL) 0.2 10^3/uL (0.5-4.7); ABSOLUTE MONOCYTES # (MANUAL) 0.3 10^3/uL (0.1-1.4); ABSOLUTE NEUTROPHILS# (MANUAL) 15.2 10^3/uL (1.7-8.2); BAND NEUTROPHILS % (MANUAL) 2 % (3-5); BASOPHILS % (MANUAL) 0 % (0-2); EOSINOPHILS % (MANUAL) 0 % (0-6); LYMPHOCYTES % (MANUAL) 1 % (13-45); MONOCYTES % (MANUAL) 2 % (3-13); SEGMENTED NEUTROPHILS % (MAN) 95 % (42-78); TOTAL CELLS COUNTED 100
[2017-12-07 06:09] LABS: ANISOCYTOSIS 1+; PLATELET COMMENT DECREASED; POLYCHROMASIA SLIGHT; TOXIC GRANULATION 1+
[2017-12-07] MEDS: BUDESONIDE NEB 0.5 MG/2 ML AMPUL NEB SCH ×2 (08:10→20:07)
[2017-12-07] MEDS: HUM INSULIN NPH/REG INSULIN HM 100 UNIT/1 ML 3 ML SUBCUT SCH ×2 (08:40→18:21)
[2017-12-07] MEDS: FERROUS SULFATE 325 MG TABLET PO SCH (08:41)
[2017-12-07] MEDS: INSULIN LISPRO 100 UNIT/ML 3 ML VIAL SUBCUT PRN ×4 (08:41→22:31)
[2017-12-07] MEDS: POTASSIUM CHLORIDE 10 MEQ TABLET.SA PO SCH (08:41)
[2017-12-07] MEDS: DILTIAZEM HCL 180 MG CAPSULE.CR PO SCH (08:41)
[2017-12-07] MEDS: LEVOFLOXACIN 500 MG TABLET PO SCH (08:42)
[2017-12-07] MEDS: LACTOBACILLUS ACIDOPHILUS 250 MG TAB PO SCH ×2 (08:42→18:21)
[2017-12-07] MEDS: FUROSEMIDE 40 MG TABLET PO SCH (08:42)
[2017-12-07] MEDS: FLUCONAZOLE 100 MG TABLET PO SCH (08:42)
[2017-12-07] MEDS: DRONEDARONE HYDROCHLORIDE 400 MG TABLET PO SCH ×2 (08:42→22:39)
--- NOTE | 2017-12-07 12:25 | PDOC PROGRESS REPORT ---
Subjective Progress Note for:: 12/07/17 Subjective:: Patient was seen by the bedside, she has multiple comorbid conditions, she has no new complaints Reason For Visit: COPD ACUTE EXCE,AFIB RVR Physical Exam Vital Signs: Temp Pulse Resp BP Pulse Ox 98.1 F 82 18 137/58 H 98 12/07/17 07:13 12/07/17 08:10 12/07/17 08:10 12/07/17 07:13 12/07/17 08:10 Intake & Output 12/06/17 12/07/17 12/08/17 06:59 06:59 06:59 Intake Total 1735 1780 Balance 1735 1780 Weight 54.2 kg 53.9 kg General appearance: PRESENT: mild distress Eye exam: PRESENT: PERRLA Respiratory exam: PRESENT: decreased breath sounds, rhonchi Cardiovascular exam: PRESENT: +S1, +S2 GI/Abdominal exam: PRESENT: soft Neurological exam: PRESENT: alert Results Laboratory Results: 12/07/17 04:45 12/07/17 04:45 12/07/17 12/07/17 04:45 04:45 WBC 15.7 H RBC 3.11 L Hgb 8.9 L Hct 26.9 L MCV 86 MCH 28.5 MCHC 33.0 RDW 17.8 H Plt Count 149 L Seg Neutrophils % Not Reportable Lymphocytes % Not Reportable Monocytes % Not Reportable Eosinophils % Not Reportable Basophils % Not Reportable Absolute Neutrophils Not Reportable Absolute Lymphocytes Not Reportable Absolute Monocytes Not Reportable Absolute Eosinophils Not Reportable Absolute Basophils Not Reportable Sodium 142.9 Potassium 3.1 L Chloride 111 H Carbon Dioxide 19 L Anion Gap 13 BUN 45 H Creatinine 1.20 Est GFR ( Amer) 53 L Est GFR (Non-Af Amer) 44 L Glucose 264 H Calcium 8.5 11/28/17 11/28/17 11/28/17 16:29 16:29 22:57 Creatine Kinase 90 58 CK-MB (CK-2) 2.02 Troponin I 0.033 11/28/17 11/29/17 11/29/17 22:57 05:03 05:03 Creatine Kinase 59 CK-MB (CK-2) 1.27 1.01 Troponin I 0.022 0.019 Impressions: Abdomen/Pelvis CT 11/29/17 00:00 IMPRESSION: No acute findings in the abdomen or pelvis. Chest X-Ray 12/05/17 00:00 IMPRESSION: Minimal right basilar airspace disease, atelectasis versus pneumonia. Given the large retrocardiac hiatal hernia, aspiration should be considered Assessment & Plan - Diagnosis (1) Atrial fibrillation with RVR Is this a current diagnosis for this admission?: Yes (2) Coronary artery disease Qualifiers: Coronary Disease-Associated Artery/Lesion type: unspecified vessel or lesion type Is this a current diagnosis for this admission?: Yes (3) Anemia Qualifiers: Anemia type: unspecified type Qualified Code(s): D64.9 - Anemia, unspecified Is this a current diagnosis for this admission?: Yes (4) Osteoarthritis Qualifiers: Laterality: unspecified laterality Is this a current diagnosis for this admission?: Yes (6) COPD (chronic obstructive pulmonary disease) Qualifiers: COPD type: unspecified COPD Qualified Code(s): J44.9 - Chronic obstructive pulmonary disease, unspecified Is this a current diagnosis for this admission?: Yes (7) DIONNE (acute kidney injury) Is this a current diagnosis for this admission?: Yes (8) Ulcerative colitis Is this a current diagnosis for this admission?: Yes
--- NOTE | 2017-12-07 13:21 | PDOC PROGRESS REPORT ---
Subjective Progress Note for:: 12/07/17 Subjective:: Patient continues to have intermittent spells of paroxysmal atrial flutter fibrillation with rapid ventricular response. However these are noted to be transient. Pt is denying any chest arm or neck discomfort. Patient still has significant shortness of breath and on oxygen. Patient denying any PND, orthopnea. Patient denied any sustained palpitations, dizziness, syncope, near syncope. Patient denying any fever chills. Patient denying any other significant discomfort. Patient is maintaining sinus rhythm, intermittent switch into atrial flutter/ fibrillation with rapid ventricular response Review of systems: Rest review of systems negative. Medications: Medications have been reviewed. Reason For Visit: COPD ACUTE EXCE,AFIB RVR Physical Exam Vital Signs: Temp Pulse Resp BP Pulse Ox 98.1 F 72 17 137/58 H 97 12/07/17 07:13 12/07/17 12:52 12/07/17 12:52 12/07/17 07:13 12/07/17 12:52 Intake & Output 12/06/17 12/07/17 12/08/17 06:59 06:59 06:59 Intake Total 1735 1780 Balance 1735 1780 Weight 54.2 kg 53.9 kg Exam: GENERAL: well-nourished and in no acute distress. Alert and oriented x3 HEAD: Atraumatic, normocephalic. EYES: Pupils equal round and reactive to light, extraocular movements intact, sclera anicteric, conjunctiva are normal. ENT: TMs normal, nares patent, oropharynx clear without exudates. Moist mucous membranes. No oral ulcerations or bleeding gums noted NECK: supple without lymphadenopathy. Trachea is central. No cervical or axillary lymphadenopathy noted. Carotids are 2+, JVD WNL LUNGS: Respiration seems nonlabored, no significant accessory muscle action noted. Mild bilateral scattered wheezes rales or rhonchi noted. No significant dullness noted on percussion. CHEST: Palpation of the chest wall shows no significant chest wall tenderness. No other significant abnormalities noted. 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 ABDOMEN: Soft, no significant tenderness appreciated, normoactive bowel sounds. No guarding, no rebound. No rigidity noted . No masses appreciated. EXTREMITIES: Pedal pulses are 1-2+, no calf tenderness noted. No clubbing or cyanosis.trace pedal edema noted NEUROLOGICAL: Focused neurological exam showed no significant neurologic deficit. Normal speech, no focal weakness appreciated. PSYCH: Normal mood, normal affect. Judgment and insight within normal limits. SKIN: No significant ecchymosis, rash, ulcerations or signs of pruritus noted. MUSCULOSKELETAL EXAM: No significant joint swelling noted. Results Laboratory Results: 12/07/17 04:45 12/07/17 12/07/17 04:45 04:45 WBC 15.7 H RBC 3.11 L Hgb 8.9 L Hct 26.9 L MCV 86 MCH 28.5 MCHC 33.0 RDW 17.8 H Plt Count 149 L Seg Neutrophils % Not Reportable Lymphocytes % Not Reportable Monocytes % Not Reportable Eosinophils % Not Reportable Basophils % Not Reportable Absolute Neutrophils Not Reportable Absolute Lymphocytes Not Reportable Absolute Monocytes Not Reportable Absolute Eosinophils Not Reportable Absolute Basophils Not Reportable Sodium 142.9 Potassium 3.1 L Chloride 111 H Carbon Dioxide 19 L Anion Gap 13 BUN 45 H Creatinine 1.20 Est GFR ( Amer) 53 L Est GFR (Non-Af Amer) 44 L Glucose 264 H Calcium 8.5 11/28/17 11/28/17 11/28/17 16:29 16:29 22:57 Creatine Kinase 90 58 CK-MB (CK-2) 2.02 Troponin I 0.033 11/28/17 11/29/17 11/29/17 22:57 05:03 05:03 Creatine Kinase 59 CK-MB (CK-2) 1.27 1.01 Troponin I 0.022 0.019 EKG Comments: Telemetry strips shows intermittent atrial flutter fibrillation with rapid ventricular response. Patient predominantly in sinus rhythm. Impressions: Abdomen/Pelvis CT 11/29/17 00:00 IMPRESSION: No acute findings in the abdomen or pelvis. Chest X-Ray 12/05/17 00:00 IMPRESSION: Minimal right basilar airspace disease, atelectasis versus pneumonia. Given the large retrocardiac hiatal hernia, aspiration should be considered Assessment & Plan - Diagnosis (1) Atrial fibrillation with RVR Is this a current diagnosis for this admission?: Yes (2) Anemia Qualifiers: Anemia type: unspecified type Qualified Code(s): D64.9 - Anemia, unspecified Is this a current diagnosis for this admission?: Yes (3) Asthma exacerbation Qualifiers: Asthma severity: unspecified severity Asthma persistence: persistent Qualified Code(s): J45.901 - Unspecified asthma with (acute) exacerbation Is this a current diagnosis for this admission?: Yes (4) Chronic kidney disease Qualifiers: Chronic kidney disease stage: stage 2 (mild) Qualified Code(s): N18.2 - Chronic kidney disease, stage 2 (mild) Is this a current diagnosis for this admission?: Yes (5) Congestive heart failure Qualifiers: Heart failure type: diastolic Heart failure chronicity: chronic Qualified Code(s): I50.32 - Chronic diastolic (congestive) heart failure Is this a current diagnosis for this admission?: Yes (6) Coronary artery disease Qualifiers: Coronary Disease-Associated Artery/Lesion type: unspecified vessel or lesion type Is this a current diagnosis for this admission?: Yes (7) COPD (chronic obstructive pulmonary disease) Qualifiers: COPD type: unspecified COPD Qualified Code(s): J44.9 - Chronic obstructive pulmonary disease, unspecified Is this a current diagnosis for this admission?: Yes (8) Pneumonia Qualifiers: Pneumonia type: due to unspecified organism Laterality: right Lung location: lower lobe of lung Qualified Code(s): J18.1 - Lobar pneumonia, unspecified organism Is this a current diagnosis for this admission?: Yes - Notes Notes: Atrial fibrillation with rapid ventricular response: Intermittent rapid heart rate response noted when patient goes into atrial flutter fibrillation. Have increased Cardizem CD 240 mg p.o. twice daily. Patient seems a borderline candidate for chronic anticoagulation due to increased has bled score CHF: Patient today seems compensated at this point. Watch for volume status on a daily basis. Continue baseline small dose of diuretics. Coronary artery disease: Symptomatically stable. Patient to report any chest pain. Chronic kidney disease: Currently stable patient being followed by marketing services vice president. Asthma exacerbation: Continue with bronchodilator and steroid therapy as needed. Patient seems to have severe underlying COPD/asthma. Anemia: Currently stable try maintain hemoglobin above 8 g percent. Gastroenterology following the patient. Gastroenterology seen the patient and advised antifungal treatment for presumed esophageal candidiasis. - Time Time with patient: 15-25 minutes - CODE STATUS : was discussed, patient remains DO NOT RESUSCITATE. Surrogate decision-maker unchanged. Multiple medical problems were addressed. More than 50% of the time spent coordinating care, discussing management plans with involved caregivers. Management plans discussed with involved personnels. Medical decision making was of moderate to high complexity, patient's has multiple comorbidities. Medications reviewed and adjusted accordingly: Yes
[2017-12-07 13:33] LABS: ALANINE AMINOTRANSFERASE 46 U/L (9-52); ALBUMIN 3.2 g/dL (3.5-5.0); ALKALINE PHOSPHATASE 46 U/L (38-126); ANION GAP 14 (5-19); ASPARTATE AMINO TRANSFERASE 26 U/L (14-36); BILIRUBIN,DIRECT 0.2 mg/dL (0.0-0.4); BILIRUBIN,TOTAL 0.3 mg/dL (0.2-1.3); BLOOD UREA NITROGEN 45 mg/dL (7-20); CALCIUM 8.6 mg/dL (8.4-10.2); CARBON DIOXIDE 19 mmol/L (22-30); CHLORIDE 112 mmol/L (98-107); GLUCOSE 245 mg/dL (75-110); POTASSIUM 3.2 mmol/L (3.6-5.0); SODIUM 144.6 mmol/L (137-145); TOTAL PROTEIN 5.2 g/dL (6.3-8.2)
--- NOTE | 2017-12-07 14:17 | PDOC CONSULTATION ---
Consultation Consult Date: 11/29/17 Attending physician:: KEILY CHRISTIANSON Consult reason:: dyspnea History of Present Illness Admission Date/PCP: 11/28/17 15:30 KEILY CHRISTIANSON MD History of Present Illness: Ms. Tran is a 77-year-old female well-known to [facility] for obstructive ventilatory defect and chronic respiratory failure is noninvasive positive pressure ventilation at any time during her sleep or at home when she feels dyspnea. She has difficulty complying with her medical medical regimen or the noninvasive positive pressure ventilation. She presents with increasing shortness of breath increasing wheezing or coughing as well some yellow phlegm chills but no fever no nausea vomiting she has 1-2 episodes of diarrhea she is this pain she has had a history of exposure to passive smoke as a child as well as an adult. She sleeps on 2 pillows occasional PND frequent nocturnal cough no edema he admits to snoring restless sleep unrestful sleep nocturia and excessive daytime somnolence. Patient displays some early dementia and some of the history above has been obtained from her daughter. Past Medical History Cardiac Medical History: Reports: Atrial Fibrillation, Congestive Heart Failure , Coronary Artery Disease, Hyperlipidema, Hypertension Pulmonary Medical History: Reports: Asthma, Bronchitis, Pneumonia EENT Medical History: Reports: Cataracts Endocrine Medical History: Reports: Diabetes Mellitus Type 2 Renal/ Medical History: Reports: Chronic Kidney Disease GI Medical History: Reports: Gastroesophageal Reflux Disease, Hiatal Hernia Musculoskeltal Medical History: Reports: Arthritis Psychiatric Medical History: Reports: Depression Hematology: Reports: Anemia Past Surgical History Past Surgical History: Reports: Appendectomy Social History Information Source: Relative, [facility] Records Lives with: Family Smoking Status: Former Smoker Passive smoke exposure as: Both Frequency of Alcohol Use: None Hx Recreational Drug Use: No Hx Prescription Drug Abuse: No Do you have pets?: No Have you had any respiratory illnesses as a child?: No Have you been exposed to any sick contacts recently?: No Have you had any recent respiratory illnesses?: No Have you travelled outside of [place] in the past 12 months?: No - Advance Directive Resuscitation Status: Do Not Resuscitate Family History Family History: CAD, Hyperlipidemia, Hypertension Parental Family History Reviewed: Yes Children Family History Reviewed: Yes Sibling(s) Family History Reviewed.: Yes Medication/Allergy Home Medications: Diltiazem HCl [Cartia Xt] 300 mg PO DAILY 11/28/17 Ferrous Sulfate [Feosol 325 mg Tablet] 325 mg PO DAILY 11/28/17 Furosemide [Lasix 40 mg Tablet] 40 mg PO QAM 11/28/17 Gabapentin [Neurontin] 800 mg PO Q8 11/28/17 Insulin Aspart Prot/Insuln Asp [Novolog Mix 70-30 Vial] 15 unit SQ QHS 11/28/17 Insulin Aspart Prot/Insuln Asp [Novolog Mix 70-30 Vial] 30 unit SQ DAILY Ipratropium/Albuterol Sulfate [Duoneb 3 ml Ampul] 3 ml NEB RTQ8HP PRN 11/28/17 Levalbuterol HCl [Xopenex Neb 0.63 mg/3 ml Ampul] 1 vial NEB Q8HP PRN 11/28/17 Omeprazole 20 mg PO BID 11/28/17 Prednisone [Deltasone 20 mg Tablet] 20 mg PO DAILY 11/28/17 Sulfamethoxazole/Trimethoprim [Bactrim 400-80 mg Tablet] 1 tab PO MOWEFR@1000 Allergies/Adverse Reactions: aspirin [Aspirin] Allergy (Verified 11/25/17 15:43) colchicine Allergy (Verified 11/28/17 15:56) iodine Allergy (Verified 11/28/17 15:56) Penicillins Allergy (Verified 11/25/17 15:43) Hives shellfish derived Allergy (Verified 11/28/17 15:56) Review of Systems Constitutional: PRESENT: chills. ABSENT: fever(s) Eyes: ABSENT: visual disturbances Ears: ABSENT: hearing changes Nose, Mouth, and Throat: ABSENT: mouth pain, sore throat Cardiovascular: PRESENT: dyspnea on exertion, orthropnea. ABSENT: palpitations Respiratory: ABSENT: hemoptysis Gastrointestinal: ABSENT: abdominal pain, dysphagia, melena Genitourinary: PRESENT: nocturia. ABSENT: dysuria, hematuria Musculoskeletal: ABSENT: deformity Integumentary: ABSENT: pruritus, rash Neurological: ABSENT: convulsions, syncope Psychiatric: ABSENT: hallucinations, homidical ideation, suicidal ideation Endocrine: ABSENT: cold intolerance, heat intolerance, menstrual abnormalities Hematologic/Lymphatic: ABSENT: easy bruising Physical Exam Vital Signs: Temp Pulse Resp BP Pulse Ox 97.9 F 79 16 114/45 L 96 11/30/17 07:32 11/30/17 07:52 11/30/17 07:52 11/30/17 07:32 11/30/17 07:52 Intake & Output 11/29/17 11/30/17 12/01/17 06:59 06:59 06:59 Intake Total 692 1379 Output Total 2 Balance 692 1377 Weight 51.7 kg 51.7 kg General appearance: PRESENT: no acute distress, cooperative, disheveled, thin, well-developed Head exam: PRESENT: atraumatic, normocephalic Eye exam: PRESENT: conjunctiva pale, EOMI. ABSENT: nystagmus, periorbital swelling Mouth exam: PRESENT: dry mucosa, neck supple, tongue midline Neck exam: ABSENT: carotid bruit, JVD, lymphadenopathy, thyromegaly, tracheal deviation, tracheostomy Respiratory exam: PRESENT: crackles, decreased breath sounds, prolonged expiratory phas, rhonchi, symmetrical, wheezes Cardiovascular exam: PRESENT: RRR, +S1, +S2 Pulses: PRESENT: normal radial pulses GI/Abdominal exam: PRESENT: diminished bowel sounds, soft Extremities exam: ABSENT: calf tenderness, clubbing Musculoskeletal exam: ABSENT: deformity, dislocation Results Laboratory Results: 11/30/17 04:49 11/30/17 04:49 11/30/17 11/30/17 04:49 04:49 WBC 9.5 RBC 3.11 L Hgb 8.8 L Hct 26.8 L MCV 86 MCH 28.3 MCHC 32.8 RDW 17.6 H Plt Count 217 Seg Neutrophils % Not Reportable Lymphocytes % Not Reportable Monocytes % Not Reportable Eosinophils % Not Reportable Basophils % Not Reportable Absolute Neutrophils Not Reportable Absolute Lymphocytes Not Reportable Absolute Monocytes Not Reportable Absolute Eosinophils Not Reportable Absolute Basophils Not Reportable Sodium 142.9 Potassium 4.2 Chloride 110 H Carbon Dioxide 20 L Anion Gap 13 BUN 67 H Creatinine 1.48 H Est GFR ( Amer) 41 L Est GFR (Non-Af Amer) 34 L Glucose 329 H Calcium 9.3 Magnesium 2.7 H 11/28/17 11/28/17 11/28/17 16:29 16:29 22:57 Creatine Kinase 90 58 CK-MB (CK-2) 2.02 Troponin I 0.033 11/28/17 11/29/17 11/29/17 22:57 05:03 05:03 Creatine Kinase 59 CK-MB (CK-2) 1.27 1.01 Troponin I 0.022 0.019 Impressions: Abdomen/Pelvis CT 11/29/17 00:00 IMPRESSION: No acute findings in the abdomen or pelvis. Assessment & Plan - Diagnosis (1) Acute exacerbation of COPD with asthma Is this a current diagnosis for this admission?: Yes Plan: We will start bronchodilators check bedside spirometry (2) COPD (chronic obstructive pulmonary disease) Qualifiers: COPD type: unspecified COPD Qualified Code(s): J44.9 - Chronic obstructive pulmonary disease, unspecified Is this a current diagnosis for this admission?: Yes Plan: Decreased breath sounds prolonged expiratory phase with a paucity of wheezing (3) Congestive heart failure Qualifiers: Heart failure type: diastolic Heart failure chronicity: chronic Qualified Code(s): I50.32 - Chronic diastolic (congestive) heart failure Is this a current diagnosis for this admission?: Yes
--- NOTE | 2017-12-07 14:21 | PDOC PROGRESS REPORT ---
Subjective Progress Note for:: 12/02/17 Subjective:: I am feeling a little better Reason For Visit: COPD ACUTE EXCE,AFIB RVR Physical Exam Vital Signs: Temp Pulse Resp BP Pulse Ox 97.8 F 73 16 128/44 H 96 12/03/17 20:20 12/03/17 20:20 12/03/17 20:20 12/03/17 20:20 12/03/17 20:20 Intake & Output 12/02/17 12/03/17 12/04/17 06:59 06:59 06:59 Intake Total 1710 1225 700 Balance 1710 1225 700 Weight 51.3 kg 51 kg General appearance: PRESENT: disheveled, mild distress, obese, well-developed Head exam: PRESENT: atraumatic, normocephalic Eye exam: PRESENT: conjunctiva pale, EOMI. ABSENT: nystagmus, periorbital swelling, scleral icterus Mouth exam: PRESENT: dry mucosa, neck supple, tongue midline Neck exam: ABSENT: carotid bruit, JVD, lymphadenopathy, thyromegaly, tracheal deviation, tracheostomy Respiratory exam: PRESENT: decreased breath sounds, prolonged expiratory phas, rhonchi, symmetrical, tachypnea, wheezes. ABSENT: retraction, stridor, unlabored Cardiovascular exam: PRESENT: RRR, +S1, +S2 Pulses: PRESENT: normal radial pulses GI/Abdominal exam: PRESENT: diminished bowel sounds, tenderness Extremities exam: PRESENT: pedal edema. ABSENT: calf tenderness, clubbing Musculoskeletal exam: ABSENT: deformity, dislocation Neurological exam: PRESENT: awake Skin exam: PRESENT: dry, warm Results Laboratory Results: 12/03/17 07:02 12/03/17 07:02 12/03/17 12/03/17 07:02 07:02 WBC 7.8 RBC 2.95 L Hgb 8.3 L Hct 25.6 L MCV 87 MCH 28.3 MCHC 32.6 RDW 17.8 H Plt Count 177 Seg Neutrophils % Not Reportable Lymphocytes % Not Reportable Monocytes % Not Reportable Eosinophils % Not Reportable Basophils % Not Reportable Absolute Neutrophils Not Reportable Absolute Lymphocytes Not Reportable Absolute Monocytes Not Reportable Absolute Eosinophils Not Reportable Absolute Basophils Not Reportable Retic Count (auto) 1.98 Absolute Retic 0.059 Sodium 144.4 Potassium 3.6 Chloride 110 H Carbon Dioxide 22 Anion Gap 12 BUN 77 H Creatinine 1.83 H Est GFR ( Amer) 32 L Est GFR (Non-Af Amer) 27 L Glucose 379 H Calcium 8.5 Iron 69.5 TIBC 271 % Saturation 26 Ferritin 62.40 Vitamin B12 778.0 Folate 14.30 11/28/17 16:38 Blood Blood Culture - Final NO GROWTH IN 5 DAYS 11/28/17 11/28/17 11/28/17 16:29 16:29 22:57 Creatine Kinase 90 58 CK-MB (CK-2) 2.02 Troponin I 0.033 11/28/17 11/29/17 11/29/17 22:57 05:03 05:03 Creatine Kinase 59 CK-MB (CK-2) 1.27 1.01 Troponin I 0.022 0.019 Impressions: Abdomen/Pelvis CT 11/29/17 00:00 IMPRESSION: No acute findings in the abdomen or pelvis. Chest X-Ray 12/02/17 00:00 IMPRESSION: Right basilar infiltrate or atelectasis. Left basilar scarring. Assessment & Plan - Diagnosis (1) Acute exacerbation of COPD with asthma Is this a current diagnosis for this admission?: Yes Plan: We will start bronchodilators check bedside spirometry (2) COPD (chronic obstructive pulmonary disease) Qualifiers: COPD type: unspecified COPD Qualified Code(s): J44.9 - Chronic obstructive pulmonary disease, unspecified Is this a current diagnosis for this admission?: Yes Plan: Decreased breath sounds prolonged expiratory phase with a paucity of wheezing (3) Chronic kidney disease Qualifiers: Chronic kidney disease stage: stage 2 (mild) Qualified Code(s): N18.2 - Chronic kidney disease, stage 2 (mild) Is this a current diagnosis for this admission?: Yes (4) Congestive heart failure Qualifiers: Heart failure type: diastolic Heart failure chronicity: chronic Qualified Code(s): I50.32 - Chronic diastolic (congestive) heart failure Is this a current diagnosis for this admission?: Yes Plan: Chronic but stable
--- NOTE | 2017-12-07 14:25 | PDOC PROGRESS REPORT ---
Subjective Progress Note for:: 12/03/17 Subjective:: I am feeling a little better Reason For Visit: COPD ACUTE EXCE,AFIB RVR Physical Exam Vital Signs: Temp Pulse Resp BP Pulse Ox 97.8 F 73 16 128/44 H 96 12/03/17 20:20 12/03/17 20:20 12/03/17 20:20 12/03/17 20:20 12/03/17 20:20 Intake & Output 12/02/17 12/03/17 12/04/17 06:59 06:59 06:59 Intake Total 1710 1225 700 Balance 1710 1225 700 Weight 51.3 kg 51 kg General appearance: PRESENT: no acute distress, cooperative, disheveled, obese, well-developed Head exam: PRESENT: atraumatic, normocephalic Eye exam: PRESENT: conjunctiva pale, EOMI. ABSENT: nystagmus, periorbital swelling, scleral icterus Mouth exam: PRESENT: dry mucosa, neck supple, tongue midline Neck exam: ABSENT: carotid bruit, JVD, lymphadenopathy, thyromegaly, tracheal deviation, tracheostomy Respiratory exam: PRESENT: decreased breath sounds, prolonged expiratory phas, rales, rhonchi, symmetrical, wheezes. ABSENT: retraction, stridor, unlabored Cardiovascular exam: PRESENT: RRR, +S1, +S2 Pulses: PRESENT: normal radial pulses GI/Abdominal exam: PRESENT: diminished bowel sounds, soft Extremities exam: ABSENT: calf tenderness, clubbing Neurological exam: PRESENT: awake Skin exam: PRESENT: dry, warm Results Laboratory Results: 12/03/17 07:02 12/03/17 07:02 12/03/17 12/03/17 07:02 07:02 WBC 7.8 RBC 2.95 L Hgb 8.3 L Hct 25.6 L MCV 87 MCH 28.3 MCHC 32.6 RDW 17.8 H Plt Count 177 Seg Neutrophils % Not Reportable Lymphocytes % Not Reportable Monocytes % Not Reportable Eosinophils % Not Reportable Basophils % Not Reportable Absolute Neutrophils Not Reportable Absolute Lymphocytes Not Reportable Absolute Monocytes Not Reportable Absolute Eosinophils Not Reportable Absolute Basophils Not Reportable Retic Count (auto) 1.98 Absolute Retic 0.059 Sodium 144.4 Potassium 3.6 Chloride 110 H Carbon Dioxide 22 Anion Gap 12 BUN 77 H Creatinine 1.83 H Est GFR ( Amer) 32 L Est GFR (Non-Af Amer) 27 L Glucose 379 H Calcium 8.5 Iron 69.5 TIBC 271 % Saturation 26 Ferritin 62.40 Vitamin B12 778.0 Folate 14.30 11/28/17 16:38 Blood Blood Culture - Final NO GROWTH IN 5 DAYS 11/28/17 11/28/17 11/28/17 16:29 16:29 22:57 Creatine Kinase 90 58 CK-MB (CK-2) 2.02 Troponin I 0.033 11/28/17 11/29/17 11/29/17 22:57 05:03 05:03 Creatine Kinase 59 CK-MB (CK-2) 1.27 1.01 Troponin I 0.022 0.019 Impressions: Abdomen/Pelvis CT 11/29/17 00:00 IMPRESSION: No acute findings in the abdomen or pelvis. Chest X-Ray 12/02/17 00:00 IMPRESSION: Right basilar infiltrate or atelectasis. Left basilar scarring. Assessment & Plan - Diagnosis (1) Acute exacerbation of COPD with asthma Is this a current diagnosis for this admission?: Yes Plan: We will start bronchodilators check bedside spirometry (2) COPD (chronic obstructive pulmonary disease) Qualifiers: COPD type: unspecified COPD Qualified Code(s): J44.9 - Chronic obstructive pulmonary disease, unspecified Is this a current diagnosis for this admission?: Yes Plan: Decreased breath sounds prolonged expiratory phase with a paucity of wheezing (3) Congestive heart failure Qualifiers: Heart failure type: diastolic Heart failure chronicity: chronic Qualified Code(s): I50.32 - Chronic diastolic (congestive) heart failure Is this a current diagnosis for this admission?: Yes Plan: Chronic but stable
[2017-12-07] MEDS: LOPERAMIDE HCL 2 MG CAPSULE PO PRN (19:43)
[2017-12-07] MEDS ORDERED: DILTIAZEM HCL 120 MG CAP.SR.24H PO SCH (22:00)
[2017-12-07] MEDS: MONTELUKAST SODIUM 10 MG TABLET PO SCH (22:39)
[2017-12-08] MEDS: LEVALBUTEROL HCL NEB 0.63 MG/3 ML AMPUL NEB SCH ×5 (04:11→19:42)
[2017-12-08] MEDS: LOPERAMIDE HCL 2 MG CAPSULE PO PRN ×3 (04:41→17:46)
[2017-12-08] MEDS: LANSOPRAZOLE 15 MG TAB.RAP.DR PO SCH ×2 (05:20→17:42)
[2017-12-08] MEDS: HEPARIN SOD (PORCINE) 5,000 UNIT/ML 1 ML SYRINGE SUBCUT SCH ×3 (05:20→22:11)
[2017-12-08] MEDS: GABAPENTIN 400 MG CAPSULE PO SCH ×3 (05:20→22:11)
[2017-12-08] MEDS: CLINDAMYCIN 600 MG/D5W RTU 600 MG/50 ML RTUPB IV SCH ×2 (05:20→12:45)
[2017-12-08] MEDS: METHYLPREDNISOLONE INJ 40 MG/1 ML SDV IV SCH ×3 (05:20→22:11)
[2017-12-08 06:29] LABS: ANION GAP 15 (5-19); BLOOD UREA NITROGEN 40 mg/dL (7-20); CALCIUM 8.5 mg/dL (8.4-10.2); CARBON DIOXIDE 22 mmol/L (22-30); CHLORIDE 107 mmol/L (98-107); GLUCOSE 163 mg/dL (75-110); POTASSIUM 3.2 mmol/L (3.6-5.0); SODIUM 144.3 mmol/L (137-145)
[2017-12-08] MEDS: BUDESONIDE NEB 0.5 MG/2 ML AMPUL NEB SCH ×2 (07:53→19:42)
[2017-12-08] MEDS: LACTOBACILLUS ACIDOPHILUS 250 MG TAB PO SCH ×2 (09:29→17:42)
[2017-12-08] MEDS: DRONEDARONE HYDROCHLORIDE 400 MG TABLET PO SCH ×2 (09:29→22:11)
[2017-12-08] MEDS: LEVOFLOXACIN 500 MG TABLET PO SCH (09:29)
[2017-12-08] MEDS: FERROUS SULFATE 325 MG TABLET PO SCH (09:29)
[2017-12-08] MEDS: FUROSEMIDE 40 MG TABLET PO SCH (09:29)
[2017-12-08] MEDS: HUM INSULIN NPH/REG INSULIN HM 100 UNIT/1 ML 3 ML SUBCUT SCH ×2 (09:30→17:42)
[2017-12-08] MEDS: INSULIN LISPRO 100 UNIT/ML 3 ML VIAL SUBCUT PRN ×3 (09:30→17:42)
[2017-12-08] MEDS: DILTIAZEM HCL 240 MG CAPSULE.CR PO SCH ×2 (09:30→22:11)
[2017-12-08] MEDS: FLUCONAZOLE 100 MG TABLET PO SCH (12:45)
--- NOTE | 2017-12-08 12:47 | PDOC PROGRESS REPORT ---
Subjective Progress Note for:: 12/08/17 Subjective:: Patient noted to be feeling much better today. She is expecting discharge tomorrow. Pt is denying any chest arm or neck discomfort. Patient still has significant shortness of breath and on oxygen. Patient denying any PND, orthopnea. Patient denied any sustained palpitations, dizziness, syncope, near syncope. Patient denying any fever chills. Patient denying any other significant discomfort. Patient is maintaining sinus rhythm, no paroxysmal A. fib in the last 24 hours Review of systems: Rest review of systems negative. Medications: Medications have been reviewed. Reason For Visit: COPD ACUTE EXCE,AFIB RVR Physical Exam Vital Signs: Temp Pulse Resp BP Pulse Ox 98.3 F 83 18 160/59 H 99 12/08/17 11:17 12/08/17 11:17 12/08/17 11:17 12/08/17 11:17 12/08/17 11:17 Intake & Output 12/07/17 12/08/17 12/09/17 06:59 06:59 06:59 Intake Total 1780 2014 650 Balance 1782014 650 Weight 53.9 kg 52.7 kg Exam: GENERAL: well-nourished and in no acute distress. Alert and oriented x3 HEAD: Atraumatic, normocephalic. EYES: Pupils equal round and reactive to light, extraocular movements intact, sclera anicteric, conjunctiva are normal. ENT: TMs normal, nares patent, oropharynx clear without exudates. Moist mucous membranes. No oral ulcerations or bleeding gums noted NECK: supple without lymphadenopathy. Trachea is central. No cervical or axillary lymphadenopathy noted. Carotids are 2+, JVD WNL LUNGS: Respiration seems nonlabored, no significant accessory muscle action noted. Breath sounds clear to auscultation bilaterally and equal noted. Few scattered wheezes rales or rhonchi noted. No significant dullness noted on percussion. CHEST: Palpation of the chest wall shows no significant chest wall tenderness. No other significant abnormalities noted. HEART: [place] APPLICATION SPEC, No PSH, 1/6 ROLY aortic area, 1/6 tran systolic murmur mitral area, no rubs, no gallops. ABDOMEN: Soft, no significant tenderness appreciated, normoactive bowel sounds. No guarding, no rebound. No rigidity noted . No masses appreciated. EXTREMITIES: Pedal pulses are 1-2+, no calf tenderness noted. No clubbing or cyanosis.trace to 1+ pedal edema noted NEUROLOGICAL: Focused neurological exam showed no significant neurologic deficit. Normal speech, no focal weakness appreciated. PSYCH: Normal mood, normal affect. Judgment and insight within normal limits. SKIN: No significant ecchymosis, rash, ulcerations or signs of pruritus noted. MUSCULOSKELETAL EXAM: No significant joint swelling noted. Results Laboratory Results: 12/07/17 04:45 12/08/17 05:00 12/07/17 12/08/17 12:57 05:00 Sodium 144.6 144.3 Potassium 3.2 L 3.2 L Chloride 112 H 107 Carbon Dioxide 19 L 22 Anion Gap 14 15 BUN 45 H 40 H Creatinine 1.23 0.96 Est GFR ( Amer) 51 L > 60 Est GFR (Non-Af Amer) 42 L 56 L Glucose 245 H 163 H Calcium 8.6 8.5 Total Bilirubin 0.3 AST 26 ALT 46 Alkaline Phosphatase 46 Total Protein 5.2 L Albumin 3.2 L 11/28/17 11/28/17 11/28/17 16:29 16:29 22:57 Creatine Kinase 90 58 CK-MB (CK-2) 2.02 Troponin I 0.033 11/28/17 11/29/17 11/29/17 22:57 05:03 05:03 Creatine Kinase 59 CK-MB (CK-2) 1.27 1.01 Troponin I 0.022 0.019 EKG Comments: Telemetry strip shows sinus rhythm without any sustained tacky or bradycardia arrhythmias. Impressions: Abdomen/Pelvis CT 11/29/17 00:00 IMPRESSION: No acute findings in the abdomen or pelvis. Chest X-Ray 12/05/17 00:00 IMPRESSION: Minimal right basilar airspace disease, atelectasis versus pneumonia. Given the large retrocardiac hiatal hernia, aspiration should be considered Assessment & Plan - Diagnosis (1) Atrial fibrillation with RVR Is this a current diagnosis for this admission?: Yes (2) Anemia Qualifiers: Anemia type: unspecified type Qualified Code(s): D64.9 - Anemia, unspecified Is this a current diagnosis for this admission?: Yes (3) Asthma exacerbation Qualifiers: Asthma severity: unspecified severity Asthma persistence: persistent Qualified Code(s): J45.901 - Unspecified asthma with (acute) exacerbation Is this a current diagnosis for this admission?: Yes (4) Chronic kidney disease Qualifiers: Chronic kidney disease stage: stage 2 (mild) Qualified Code(s): N18.2 - Chronic kidney disease, stage 2 (mild) Is this a current diagnosis for this admission?: Yes (5) Congestive heart failure Qualifiers: Heart failure type: diastolic Heart failure chronicity: chronic Qualified Code(s): I50.32 - Chronic diastolic (congestive) heart failure Is this a current diagnosis for this admission?: Yes (6) Coronary artery disease Qualifiers: Coronary Disease-Associated Artery/Lesion type: unspecified vessel or lesion type Is this a current diagnosis for this admission?: Yes (7) COPD (chronic obstructive pulmonary disease) Qualifiers: COPD type: unspecified COPD Qualified Code(s): J44.9 - Chronic obstructive pulmonary disease, unspecified Is this a current diagnosis for this admission?: Yes (8) Pneumonia Qualifiers: Pneumonia type: due to unspecified organism Laterality: right Lung location: lower lobe of lung Qualified Code(s): J18.1 - Lobar pneumonia, unspecified organism Is this a current diagnosis for this admission?: Yes - Notes Notes: Atrial fibrillation with rapid ventricular response: Intermittent rapid heart rate response noted when patient goes into atrial flutter fibrillation. Have increased Cardizem CD 240 mg p.o. twice daily. Patient seems a borderline candidate for chronic anticoagulation due to increased has bled score. Patient seems to be tolerating this dose well. CHF: Patient today seems compensated at this point. Watch for volume status on a daily basis. Continue baseline small dose of diuretics. Coronary artery disease: Symptomatically stable. Patient to report any chest pain. Chronic kidney disease: Currently stable patient being followed by automation sales manager. Asthma exacerbation: Continue with bronchodilator and steroid therapy as needed. Patient seems to have severe underlying COPD/asthma. Anemia: Currently stable try maintain hemoglobin above 8 g percent. Gastroenterology following the patient. Gastroenterology seen the patient and advised antifungal treatment for presumed esophageal candidiasis. - Time Time with patient: 15-25 minutes - CODE STATUS was discussed, patient remains DNR. Surrogate decision-maker unchanged. Multiple medical problems were addressed. More than 50% of the time spent coordinating care, discussing management plans with involved caregivers. Management plans discussed with involved personnels. Medical decision making was of moderate to high complexity , patient's has multiple comorbidities. Medications reviewed and adjusted accordingly: Yes
[2017-12-08] MEDS ORDERED: POTASSIUM CHLORIDE 10 MEQ TABLET.SA PO ONE (13:00)
--- NOTE | 2017-12-08 13:52 | PDOC PROGRESS REPORT ---
Subjective Progress Note for:: 12/08/17 Subjective:: Patient was seen by the bedside, she continues to have diarrhea with associated hypokalemia Reason For Visit: COPD ACUTE EXCE,AFIB RVR Physical Exam Vital Signs: Temp Pulse Resp BP Pulse Ox 98.3 F 80 16 160/59 H 98 12/08/17 11:17 12/08/17 11:52 12/08/17 11:52 12/08/17 11:17 12/08/17 11:52 Intake & Output 12/07/17 12/08/17 12/09/17 06:59 06:59 06:59 Intake Total 1779 2014 650 Balance 1779 2014 650 Weight 53.9 kg 52.7 kg General appearance: PRESENT: no acute distress Eye exam: PRESENT: PERRLA Respiratory exam: PRESENT: clear to auscultation koko Cardiovascular exam: PRESENT: +S1, +S2 GI/Abdominal exam: PRESENT: soft Neurological exam: PRESENT: alert Results Laboratory Results: 12/07/17 04:45 12/08/17 05:00 12/08/17 05:00 Sodium 144.3 Potassium 3.2 L Chloride 107 Carbon Dioxide 22 Anion Gap 15 BUN 40 H Creatinine 0.96 Est GFR ( Amer) > 60 Est GFR (Non-Af Amer) 56 L Glucose 163 H Calcium 8.5 11/28/17 11/28/17 11/28/17 16:29 16:29 22:57 Creatine Kinase 90 58 CK-MB (CK-2) 2.02 Troponin I 0.033 11/28/17 11/29/17 11/29/17 22:57 05:03 05:03 Creatine Kinase 59 CK-MB (CK-2) 1.27 1.01 Troponin I 0.022 0.019 Impressions: Abdomen/Pelvis CT 11/29/17 00:00 IMPRESSION: No acute findings in the abdomen or pelvis. Chest X-Ray 12/05/17 00:00 IMPRESSION: Minimal right basilar airspace disease, atelectasis versus pneumonia. Given the large retrocardiac hiatal hernia, aspiration should be considered Assessment & Plan - Diagnosis (1) Atrial fibrillation with RVR Is this a current diagnosis for this admission?: Yes (2) Coronary artery disease Qualifiers: Coronary Disease-Associated Artery/Lesion type: unspecified vessel or lesion type Is this a current diagnosis for this admission?: Yes (3) Anemia Qualifiers: Anemia type: unspecified type Qualified Code(s): D64.9 - Anemia, unspecified Is this a current diagnosis for this admission?: Yes (4) Osteoarthritis Qualifiers: Laterality: unspecified laterality Is this a current diagnosis for this admission?: Yes (5) CKD stage 3 due to type 1 diabetes mellitus Is this a current diagnosis for this admission?: Yes (6) COPD (chronic obstructive pulmonary disease) Qualifiers: COPD type: unspecified COPD Qualified Code(s): J44.9 - Chronic obstructive pulmonary disease, unspecified Is this a current diagnosis for this admission?: Yes (7) DIONNE (acute kidney injury) Is this a current diagnosis for this admission?: Yes (8) Ulcerative colitis Is this a current diagnosis for this admission?: Yes - Plan Summary Plan Summary: Replace potassium, continue other treatment
--- NOTE | 2017-12-08 16:26 | PDOC PROGRESS REPORT ---
Subjective Progress Note for:: 12/04/17 Subjective:: I am feeling a little better Reason For Visit: COPD ACUTE EXCE,AFIB RVR Physical Exam Vital Signs: Temp Pulse Resp BP Pulse Ox 98.1 F 72 17 137/58 H 97 12/07/17 07:13 12/07/17 12:52 12/07/17 12:52 12/07/17 07:13 12/07/17 12:52 Intake & Output 12/06/17 12/07/17 12/08/17 06:59 06:59 06:59 Intake Total 1735 1780 Balance 1735 1780 Weight 54.2 kg 53.9 kg General appearance: PRESENT: no acute distress, cooperative, disheveled, well- developed Head exam: PRESENT: atraumatic, normocephalic Eye exam: PRESENT: conjunctiva pale, EOMI. ABSENT: nystagmus, periorbital swelling Mouth exam: PRESENT: dry mucosa, neck supple, tongue midline Neck exam: ABSENT: carotid bruit, JVD, lymphadenopathy, thyromegaly, tracheal deviation, tracheostomy Respiratory exam: PRESENT: decreased breath sounds, prolonged expiratory phas, rales, rhonchi, symmetrical, unlabored. ABSENT: retraction, stridor, tachypnea Cardiovascular exam: PRESENT: RRR, +S1, +S2 Pulses: PRESENT: normal radial pulses GI/Abdominal exam: PRESENT: diminished bowel sounds, soft Extremities exam: ABSENT: calf tenderness, clubbing, joint swelling Musculoskeletal exam: ABSENT: deformity, dislocation Neurological exam: PRESENT: awake Skin exam: PRESENT: dry, warm Results Laboratory Results: 12/07/17 04:45 12/07/17 12:57 12/07/17 12/07/17 12/07/17 04:45 04:45 12:57 WBC 15.7 H RBC 3.11 L Hgb 8.9 L Hct 26.9 L MCV 86 MCH 28.5 MCHC 33.0 RDW 17.8 H Plt Count 149 L Seg Neutrophils % Not Reportable Lymphocytes % Not Reportable Monocytes % Not Reportable Eosinophils % Not Reportable Basophils % Not Reportable Absolute Neutrophils Not Reportable Absolute Lymphocytes Not Reportable Absolute Monocytes Not Reportable Absolute Eosinophils Not Reportable Absolute Basophils Not Reportable Sodium 142.9 144.6 Potassium 3.1 L 3.2 L Chloride 111 H 112 H Carbon Dioxide 19 L 19 L Anion Gap 13 14 BUN 45 H 45 H Creatinine 1.20 1.23 Est GFR ( Amer) 53 L 51 L Est GFR (Non-Af Amer) 44 L 42 L Glucose 264 H 245 H Calcium 8.5 8.6 Total Bilirubin 0.3 AST 26 ALT 46 Alkaline Phosphatase 46 Total Protein 5.2 L Albumin 3.2 L 11/28/17 11/28/17 11/28/17 16:29 16:29 22:57 Creatine Kinase 90 58 CK-MB (CK-2) 2.02 Troponin I 0.033 11/28/17 11/29/17 11/29/17 22:57 05:03 05:03 Creatine Kinase 59 CK-MB (CK-2) 1.27 1.01 Troponin I 0.022 0.019 Impressions: Abdomen/Pelvis CT 11/29/17 00:00 IMPRESSION: No acute findings in the abdomen or pelvis. Chest X-Ray 12/05/17 00:00 IMPRESSION: Minimal right basilar airspace disease, atelectasis versus pneumonia. Given the large retrocardiac hiatal hernia, aspiration should be considered Assessment & Plan - Diagnosis (1) Acute exacerbation of COPD with asthma Is this a current diagnosis for this admission?: Yes Plan: We will start bronchodilators check bedside spirometry (2) Chronic kidney disease Qualifiers: Chronic kidney disease stage: stage 2 (mild) Qualified Code(s): N18.2 - Chronic kidney disease, stage 2 (mild) Is this a current diagnosis for this admission?: Yes (3) Congestive heart failure Qualifiers: Heart failure type: diastolic Heart failure chronicity: chronic Qualified Code(s): I50.32 - Chronic diastolic (congestive) heart failure Is this a current diagnosis for this admission?: Yes Plan: Chronic but stable
--- NOTE | 2017-12-08 16:28 | PDOC PROGRESS REPORT ---
Subjective Progress Note for:: 12/06/17 Subjective:: I am better Reason For Visit: COPD ACUTE EXCE,AFIB RVR Physical Exam Vital Signs: Temp Pulse Resp BP Pulse Ox 98.1 F 72 17 137/58 H 97 12/07/17 07:13 12/07/17 12:52 12/07/17 12:52 12/07/17 07:13 12/07/17 12:52 Intake & Output 12/06/17 12/07/17 12/08/17 06:59 06:59 06:59 Intake Total 1735 1780 Balance 1735 1780 Weight 54.2 kg 53.9 kg General appearance: PRESENT: no acute distress, cooperative, disheveled, well- developed Head exam: PRESENT: atraumatic, normocephalic Eye exam: PRESENT: conjunctiva pale, EOMI. ABSENT: nystagmus, periorbital swelling Mouth exam: PRESENT: dry mucosa, neck supple, tongue midline Neck exam: ABSENT: carotid bruit, JVD, lymphadenopathy, thyromegaly, tracheal deviation, tracheostomy Respiratory exam: PRESENT: decreased breath sounds, prolonged expiratory phas, rhonchi, symmetrical, unlabored. ABSENT: rales, retraction, stridor, tachypnea Cardiovascular exam: PRESENT: RRR, +S1, +S2 GI/Abdominal exam: PRESENT: diminished bowel sounds, soft Extremities exam: ABSENT: calf tenderness, clubbing, joint swelling Musculoskeletal exam: ABSENT: deformity, dislocation Neurological exam: PRESENT: awake Skin exam: PRESENT: dry, warm Results Laboratory Results: 12/07/17 04:45 12/07/17 12:57 12/07/17 12/07/17 12/07/17 04:45 04:45 12:57 WBC 15.7 H RBC 3.11 L Hgb 8.9 L Hct 26.9 L MCV 86 MCH 28.5 MCHC 33.0 RDW 17.8 H Plt Count 149 L Seg Neutrophils % Not Reportable Lymphocytes % Not Reportable Monocytes % Not Reportable Eosinophils % Not Reportable Basophils % Not Reportable Absolute Neutrophils Not Reportable Absolute Lymphocytes Not Reportable Absolute Monocytes Not Reportable Absolute Eosinophils Not Reportable Absolute Basophils Not Reportable Sodium 142.9 144.6 Potassium 3.1 L 3.2 L Chloride 111 H 112 H Carbon Dioxide 19 L 19 L Anion Gap 13 14 BUN 45 H 45 H Creatinine 1.20 1.23 Est GFR ( Amer) 53 L 51 L Est GFR (Non-Af Amer) 44 L 42 L Glucose 264 H 245 H Calcium 8.5 8.6 Total Bilirubin 0.3 AST 26 ALT 46 Alkaline Phosphatase 46 Total Protein 5.2 L Albumin 3.2 L 11/28/17 11/28/17 11/28/17 16:29 16:29 22:57 Creatine Kinase 90 58 CK-MB (CK-2) 2.02 Troponin I 0.033 11/28/17 11/29/17 11/29/17 22:57 05:03 05:03 Creatine Kinase 59 CK-MB (CK-2) 1.27 1.01 Troponin I 0.022 0.019 Impressions: Abdomen/Pelvis CT 11/29/17 00:00 IMPRESSION: No acute findings in the abdomen or pelvis. Chest X-Ray 12/05/17 00:00 IMPRESSION: Minimal right basilar airspace disease, atelectasis versus pneumonia. Given the large retrocardiac hiatal hernia, aspiration should be considered Assessment & Plan - Diagnosis (1) Acute exacerbation of COPD with asthma Is this a current diagnosis for this admission?: Yes Plan: We will start bronchodilators check bedside spirometry (2) Chronic kidney disease Qualifiers: Chronic kidney disease stage: stage 2 (mild) Qualified Code(s): N18.2 - Chronic kidney disease, stage 2 (mild) Is this a current diagnosis for this admission?: Yes (3) Congestive heart failure Qualifiers: Heart failure type: diastolic Heart failure chronicity: chronic Qualified Code(s): I50.32 - Chronic diastolic (congestive) heart failure Is this a current diagnosis for this admission?: Yes Plan: Chronic but stable
[2017-12-08] MEDS: MONTELUKAST SODIUM 10 MG TABLET PO SCH (22:11)
[2017-12-09] MEDS: LEVALBUTEROL HCL NEB 0.63 MG/3 ML AMPUL NEB SCH ×7 (00:05→23:39)
[2017-12-09] MEDS: GABAPENTIN 400 MG CAPSULE PO SCH ×3 (06:33→21:25)
[2017-12-09] MEDS: HEPARIN SOD (PORCINE) 5,000 UNIT/ML 1 ML SYRINGE SUBCUT SCH ×3 (06:33→21:26)
[2017-12-09] MEDS: LANSOPRAZOLE 15 MG TAB.RAP.DR PO SCH ×2 (06:33→17:12)
[2017-12-09] MEDS: METHYLPREDNISOLONE INJ 40 MG/1 ML SDV IV SCH (06:33)
[2017-12-09] MEDS: BUDESONIDE NEB 0.5 MG/2 ML AMPUL NEB SCH ×2 (07:36→19:56)
[2017-12-09] MEDS: HUM INSULIN NPH/REG INSULIN HM 100 UNIT/1 ML 3 ML SUBCUT SCH ×2 (08:28→17:12)
[2017-12-09] MEDS: INSULIN LISPRO 100 UNIT/ML 3 ML VIAL SUBCUT PRN ×4 (08:28→22:31)
[2017-12-09] MEDS: FUROSEMIDE 40 MG TABLET PO SCH (08:29)
[2017-12-09] MEDS: PREDNISONE 20 MG TABLET PO SCH ×2 (09:40→17:12)
[2017-12-09] MEDS: DRONEDARONE HYDROCHLORIDE 400 MG TABLET PO SCH ×2 (09:40→21:24)
[2017-12-09] MEDS: POTASSIUM CHLORIDE 10 MEQ TABLET.SA PO SCH (09:40)
[2017-12-09] MEDS: DILTIAZEM HCL 240 MG CAPSULE.CR PO SCH ×2 (09:40→21:25)
[2017-12-09] MEDS: FERROUS SULFATE 325 MG TABLET PO SCH (09:40)
[2017-12-09] MEDS: LEVOFLOXACIN 500 MG TABLET PO SCH (09:40)
[2017-12-09] MEDS: LACTOBACILLUS ACIDOPHILUS 250 MG TAB PO SCH ×2 (09:40→17:12)
[2017-12-09 09:46] LABS: HEMATOCRIT 27.3 % (36.0-47.0); HEMOGLOBIN 8.8 g/dL (12.0-15.5); MEAN CORPUSCULAR HEMOGLOBIN 28.7 pg (27.0-33.4); MEAN CORPUSCULAR HGB CONC 32.4 g/dL (32.0-36.0); MEAN CORPUSCULAR VOLUME 89 fl (80-97); PLATELET COUNT 127 10^3/uL (150-450); RED BLOOD COUNT 3.08 10^6/uL (3.72-5.28); RED CELL DISTRIBUTION WIDTH 18.5 % (11.5-14.0); WHITE BLOOD COUNT 13.8 10^3/uL (4.0-10.5)
[2017-12-09 10:22] LABS: ABSOLUTE MONOCYTES # (MANUAL) 0.3 10^3/uL (0.1-1.4); ABSOLUTE NEUTROPHILS# (MANUAL) 13.5 10^3/uL (1.7-8.2); BAND NEUTROPHILS % (MANUAL) 1 % (3-5); BASOPHILS % (MANUAL) 0 % (0-2); EOSINOPHILS % (MANUAL) 0 % (0-6); LYMPHOCYTES % (MANUAL) 0 % (13-45); MONOCYTES % (MANUAL) 2 % (3-13); NUCLEATED RED BLOOD CELLS 1 /100 WBC (0); SEGMENTED NEUTROPHILS % (MAN) 97 % (42-78); TOTAL CELLS COUNTED 100
[2017-12-09 10:24] LABS: ANISOCYTOSIS SLIGHT; OVALOCYTES SLIGHT; PLATELET COMMENT DECREASED; POIKILOCYTOSIS SLIGHT; POLYCHROMASIA SLIGHT; TEAR DROP CELLS SLIGHT; TOXIC GRANULATION 1+
--- NOTE | 2017-12-09 11:27 | PDOC PROGRESS REPORT ---
Subjective Progress Note for:: 12/09/17 Subjective:: Patient was seen today sitting up in her chair. At the time she was not short of breath but was complaining of increased swelling in her legs. She is also still having the diarrhea, which the daughter and her claim is chronic. According the nurse in charge of her care, the patient is just waiting on placement at [facility]. Reason For Visit: COPD ACUTE EXCE,AFIB RVR Physical Exam Vital Signs: Temp Pulse Resp BP Pulse Ox 98.3 F 66 18 123/54 L 100 12/09/17 07:03 12/09/17 07:36 12/09/17 07:36 12/09/17 07:03 12/09/17 07:36 Intake & Output 12/08/17 12/09/17 12/10/17 06:59 06:59 06:59 Intake Total 2014 1829 Balance 2014 1829 Weight 52.7 kg 53.1 kg General appearance: PRESENT: no acute distress, thin Mouth exam: PRESENT: moist, neck supple Neck exam: PRESENT: full ROM. ABSENT: JVD Respiratory exam: PRESENT: crackles - -left base of the lung, wheezes - -minor through out. ABSENT: accessory muscle use, clear to auscultation koko, rales, rhonchi Cardiovascular exam: PRESENT: RRR, +S1, +S2 GI/Abdominal exam: PRESENT: normal bowel sounds, soft. ABSENT: distended, firm , organomegaly, tenderness Extremities exam: PRESENT: +1 edema. ABSENT: tenderness Musculoskeletal exam: ABSENT: normal inspection, tenderness Neurological exam: PRESENT: alert, awake, oriented to person, oriented to place , oriented to time, oriented to situation Psychiatric exam: PRESENT: appropriate affect, normal mood Skin exam: PRESENT: dry, intact, warm. ABSENT: cyanosis Results Laboratory Results: 12/09/17 09:13 12/08/17 05:00 12/09/17 09:13 WBC 13.8 H RBC 3.08 L Hgb 8.8 L Hct 27.3 L MCV 89 MCH 28.7 MCHC 32.4 RDW 18.5 H Plt Count 127 L Seg Neutrophils % Not Reportable Lymphocytes % Not Reportable Monocytes % Not Reportable Eosinophils % Not Reportable Basophils % Not Reportable Absolute Neutrophils Not Reportable Absolute Lymphocytes Not Reportable Absolute Monocytes Not Reportable Absolute Eosinophils Not Reportable Absolute Basophils Not Reportable 11/28/17 11/28/17 11/28/17 16:29 16:29 22:57 Creatine Kinase 90 58 CK-MB (CK-2) 2.02 Troponin I 0.033 11/28/17 11/29/17 11/29/17 22:57 05:03 05:03 Creatine Kinase 59 CK-MB (CK-2) 1.27 1.01 Troponin I 0.022 0.019 Impressions: Abdomen/Pelvis CT 11/29/17 00:00 IMPRESSION: No acute findings in the abdomen or pelvis. Chest X-Ray 12/05/17 00:00 IMPRESSION: Minimal right basilar airspace disease, atelectasis versus pneumonia. Given the large retrocardiac hiatal hernia, aspiration should be considered Assessment & Plan - Diagnosis (1) DIONNE (acute kidney injury) Is this a current diagnosis for this admission?: Yes Plan: kidney function looks to be back down at baseline, patient is showing some fluid overload. Will increase Lasix to 40mg qam and 20mg at 2pm qd (2) CKD stage 3 due to type 1 diabetes mellitus Is this a current diagnosis for this admission?: Yes Plan: looks to be at baseline (3) Anemia Qualifiers: Anemia type: unspecified type Qualified Code(s): D64.9 - Anemia, unspecified Is this a current diagnosis for this admission?: Yes Plan: slightly improved, will have her receive procrit as outpatient (4) Hypokalemia Plan: Currently stable not needing potassium (5) Atrial fibrillation with RVR Is this a current diagnosis for this admission?: Yes Plan: managed by cardiology (6) Congestive heart failure Qualifiers: Heart failure type: diastolic Heart failure chronicity: chronic Qualified Code(s): I50.32 - Chronic diastolic (congestive) heart failure Is this a current diagnosis for this admission?: Yes Plan: increased lasix to 40mg qam and 20mg q2pm (7) Pneumonia Qualifiers: Pneumonia type: due to unspecified organism Laterality: right Lung location: lower lobe of lung Qualified Code(s): J18.1 - Lobar pneumonia, unspecified organism Is this a current diagnosis for this admission?: Yes (8) Respiratory distress Is this a current diagnosis for this admission?: Yes Plan: improved
--- NOTE | 2017-12-09 11:39 | PDOC PROGRESS REPORT ---
Subjective Progress Note for:: 12/09/17 Subjective:: Patient is feeling much better No events happens during the weekends No chest pain no short of breath Reason For Visit: COPD ACUTE EXCE,AFIB RVR Physical Exam Vital Signs: Temp Pulse Resp BP Pulse Ox 98.3 F 66 18 123/54 L 100 12/09/17 07:03 12/09/17 07:36 12/09/17 07:36 12/09/17 07:03 12/09/17 07:36 Intake & Output 12/08/17 12/09/17 12/10/17 06:59 06:59 06:59 Intake Total 2014 183 Balance 2014 183 Weight 52.7 kg 53.1 kg General appearance: PRESENT: no acute distress, well-developed, well-nourished Head exam: PRESENT: atraumatic, normocephalic Eye exam: PRESENT: conjunctiva pink, EOMI, PERRLA. ABSENT: scleral icterus Ear exam: PRESENT: normal external ear exam Mouth exam: PRESENT: moist, tongue midline Neck exam: PRESENT: full ROM. ABSENT: carotid bruit, JVD, lymphadenopathy, thyromegaly Respiratory exam: PRESENT: clear to auscultation koko Cardiovascular exam: PRESENT: RRR. ABSENT: diastolic murmur, rubs, systolic murmur Pulses: PRESENT: normal dorsalis pedis pul, +2 pedal pulses bilateral Vascular exam: PRESENT: normal capillary refill GI/Abdominal exam: PRESENT: normal bowel sounds, soft. ABSENT: distended, guarding, mass, organolmegaly, rebound, tenderness Rectal exam: PRESENT: deferred Extremities exam: ABSENT: pedal edema Musculoskeletal exam: PRESENT: ambulatory Neurological exam: PRESENT: alert, awake, oriented to person, oriented to place , oriented to time, oriented to situation, CN II-XII grossly intact. ABSENT: motor sensory deficit Psychiatric exam: PRESENT: appropriate affect, normal mood. ABSENT: homicidal ideation, suicidal ideation Skin exam: PRESENT: dry, intact, warm. ABSENT: cyanosis, rash Results Laboratory Results: 12/09/17 09:13 12/09/17 09:13 WBC 13.8 H RBC 3.08 L Hgb 8.8 L Hct 27.3 L MCV 89 MCH 28.7 MCHC 32.4 RDW 18.5 H Plt Count 127 L Seg Neutrophils % Not Reportable Lymphocytes % Not Reportable Monocytes % Not Reportable Eosinophils % Not Reportable Basophils % Not Reportable Absolute Neutrophils Not Reportable Absolute Lymphocytes Not Reportable Absolute Monocytes Not Reportable Absolute Eosinophils Not Reportable Absolute Basophils Not Reportable 11/28/17 11/28/17 11/28/17 16:29 16:29 22:57 Creatine Kinase 90 58 CK-MB (CK-2) 2.02 Troponin I 0.033 11/28/17 11/29/17 11/29/17 22:57 05:03 05:03 Creatine Kinase 59 CK-MB (CK-2) 1.27 1.01 Troponin I 0.022 0.019 Impressions: Abdomen/Pelvis CT 11/29/17 00:00 IMPRESSION: No acute findings in the abdomen or pelvis. Chest X-Ray 12/05/17 00:00 IMPRESSION: Minimal right basilar airspace disease, atelectasis versus pneumonia. Given the large retrocardiac hiatal hernia, aspiration should be considered Assessment & Plan - Diagnosis (1) Asthma exacerbation Qualifiers: Asthma severity: unspecified severity Asthma persistence: persistent Qualified Code(s): J45.901 - Unspecified asthma with (acute) exacerbation Is this a current diagnosis for this admission?: Yes Plan: Will DC the IV steroid and start on the p.o. steroid (2) Respiratory distress Is this a current diagnosis for this admission?: Yes Plan: Due to the above conditions we will consult the pulmonary for the patient's have a significant history of the pulmonary disease and patient's already seen by Dr. Patino'lucille last week (3) Atrial fibrillation with RVR Is this a current diagnosis for this admission?: Yes Plan: Continues to p.o. Cardizem's 180 twice a day (4) Pneumonia Qualifiers: Pneumonia type: due to unspecified organism Laterality: right Lung location: lower lobe of lung Qualified Code(s): J18.1 - Lobar pneumonia, unspecified organism Is this a current diagnosis for this admission?: Yes Plan: Will repeat the chest x-rays continues to current medications (5) Congestive heart failure Qualifiers: Heart failure type: diastolic Heart failure chronicity: chronic Qualified Code(s): I50.32 - Chronic diastolic (congestive) heart failure Is this a current diagnosis for this admission?: Yes Plan: Continues to Lasix (6) Coronary artery disease Qualifiers: Coronary Disease-Associated Artery/Lesion type: unspecified vessel or lesion type Is this a current diagnosis for this admission?: Yes Plan: Currently all stable (7) Anemia Qualifiers: Anemia type: unspecified type Qualified Code(s): D64.9 - Anemia, unspecified Is this a current diagnosis for this admission?: Yes Plan: Patient hemoglobin drop less than 8 we will transfuse 1 unit of the blood (8) Chronic kidney disease Qualifiers: Chronic kidney disease stage: stage 2 (mild) Qualified Code(s): N18.2 - Chronic kidney disease, stage 2 (mild) Is this a current diagnosis for this admission?: Yes Plan: Currently all improving (9) Osteoarthritis Qualifiers: Laterality: unspecified laterality Is this a current diagnosis for this admission?: Yes (10) Addisons disease Is this a current diagnosis for this admission?: Yes Plan: Continues IV steroid - Time Time Spent with patient: 15-24 minutes Medications reviewed and adjusted accordingly: Yes Anticipated discharge: SNF Within: within 24 hours - Inpatient Certification Medical Necessity: Need Close Monitoring Due to Risk of Patient Decompensation Post Hospital Care: D/C Immigration Consultant Documentation - Plan Summary Plan Summary: Continues to current medications DC the IV steroids and start on the p.o. prednisone
[2017-12-09 11:53] LABS: ANION GAP 15 (5-19); BLOOD UREA NITROGEN 43 mg/dL (7-20); CALCIUM 8.5 mg/dL (8.4-10.2); CARBON DIOXIDE 16 mmol/L (22-30); CHLORIDE 108 mmol/L (98-107); POTASSIUM 4.3 mmol/L (3.6-5.0); SODIUM 138.5 mmol/L (137-145)
[2017-12-09] MEDS: FLUCONAZOLE 100 MG TABLET PO SCH (12:00)
[2017-12-09 12:04] LABS: GLUCOSE 539 mg/dL (75-110)
[2017-12-09] MEDS ORDERED: FUROSEMIDE 20 MG TABLET PO SCH (14:00)
[2017-12-09] MEDS: ACETAMINOPHEN 325 MG TABLET PO PRN (14:32)
[2017-12-09] MEDS: MONTELUKAST SODIUM 10 MG TABLET PO SCH (21:25)
[2017-12-10] MEDS: LEVALBUTEROL HCL NEB 0.63 MG/3 ML AMPUL NEB SCH ×3 (04:16→12:04)
[2017-12-10] MEDS: HEPARIN SOD (PORCINE) 5,000 UNIT/ML 1 ML SYRINGE SUBCUT SCH (05:11)
[2017-12-10] MEDS: LANSOPRAZOLE 15 MG TAB.RAP.DR PO SCH (05:12)
[2017-12-10] MEDS: GABAPENTIN 400 MG CAPSULE PO SCH (05:12)
[2017-12-10] MEDS: BUDESONIDE NEB 0.5 MG/2 ML AMPUL NEB SCH (07:46)
[2017-12-10 08:31] VITALS: BP 146/64
[2017-12-10] MEDS: HUM INSULIN NPH/REG INSULIN HM 100 UNIT/1 ML 3 ML SUBCUT SCH (08:32)
[2017-12-10] MEDS: FUROSEMIDE 40 MG TABLET PO SCH (08:32)
[2017-12-10] MEDS: INSULIN LISPRO 100 UNIT/ML 3 ML VIAL SUBCUT PRN (08:32)
--- NOTE | 2017-12-10 09:20 | PDOC TRANSFER SUMMARY ---
General - Admit/Disc Date/PCP Admission Date/Primary Care Provider: 11/28/17 15:30 KEILY CHRISTIANSON MD Discharge Date: 12/10/17 - Discharge Diagnosis (1) Asthma exacerbation Is this a current diagnosis for this admission?: Yes Summary: Currently doing much better's continues to nebulizer treatment and a steroidAnd follow outpatient Dr. Patino (2) Respiratory distress Is this a current diagnosis for this admission?: Yes Summary: Currently all resolved required 2 L oxygens (3) Atrial fibrillation with RVR Is this a current diagnosis for this admission?: Yes Summary: Currently on a Cardizem (4) Pneumonia Is this a current diagnosis for this admission?: Yes Summary: Patient had MRSA pneumonia which is sensitive to the clindamycin continues to p.o. clindamycin for another 7 days (5) Congestive heart failure Is this a current diagnosis for this admission?: Yes Summary: Continues to LasixFollow-up outpatients Dr. Todd oil and gas superintendent (6) Coronary artery disease Is this a current diagnosis for this admission?: Yes Summary: Currently stable (7) Anemia Is this a current diagnosis for this admission?: Yes Summary: Most likely from the chronic kidney disease with the endoscopy and colonoscopy was done was all stable continues to Procrit injections until the hemoglobin rechecked about [address] Powers (8) Chronic kidney disease Is this a current diagnosis for this admission?: Yes Summary: Current currently all stable (9) Osteoarthritis Is this a current diagnosis for this admission?: Yes Summary: Use of as needed Tylenol (10) Addisons disease Is this a current diagnosis for this admission?: Yes Summary: Continues to steroid prednisone he usually require 20 mg p.o. daily - Additional Information Resuscitation Status: Do Not Resuscitate Discharge Diet: Cardiac Discharge Activity: Activity As Tolerated Prescriptions: Acetaminophen [Tylenol 325 mg Tablet] 650 mg PO Q4HP PRN #120 tablet PRN Reason: Clindamycin HCl 300 mg PO Q8 #21 capsule Diltiazem HCl [Cardizem Cd 240 mg Capsule.cr] 240 mg PO Q12 #60 capsule.cr Dronedarone Hydrochloride [Multaq 400 mg Tablet] 400 mg PO Q12 #60 tablet Epoetin Luis Alfredo [Procrit Inj 20,000 Unit/1 ml Vial (Renal)] 20,000 unit SUBCUT Tu@ 2000 #4 ml Fluconazole [Diflucan 100 mg Tablet] 100 mg PO DAILY@1100 #7 tablet Hum Insulin NPH/Reg Insulin Hm [Insulin 70-30 (NPH/Reg) 100 unit/mL] 30 unit SUBCUT QAM #1 unit Hum Insulin NPH/Reg Insulin Hm [Insulin 70-30 (NPH/Reg) 100 unit/mL] 15 unit SUBCUT QPM #1 unit Insulin Lispro [Humalog Insulin (Lispro) 100 unit/mL] 0 - 12 unit SUBCUT ACHSP PRN #1 unit PRN Reason: Lactobacillus Acidophilus [Acidophilus] 1 each PO BID #60 capsule Prednisone [Deltasone 20 mg Tablet] 20 mg PO BID #1 tablet Home Medications: Ferrous Sulfate [Feosol 325 mg Tablet] 325 mg PO DAILY 11/28/17 Furosemide [Lasix 40 mg Tablet] 40 mg PO QAM 11/28/17 Gabapentin [Neurontin] 800 mg PO Q8 11/28/17 Insulin Aspart Prot/Insuln Asp [Novolog Mix 70-30 Vial] 15 unit SQ QHS 11/28/17 Insulin Aspart Prot/Insuln Asp [Novolog Mix 70-30 Vial] 30 unit SQ DAILY Omeprazole 20 mg PO BID 11/28/17 Sulfamethoxazole/Trimethoprim [Bactrim 400-80 mg Tablet] 1 tab PO MOWEFR@1000 Acetaminophen [Tylenol 325 mg Tablet] 650 mg PO Q4HP PRN #120 tablet 12/10/17 Clindamycin HCl 300 mg PO Q8 #21 capsule 12/10/17 Diltiazem HCl [Cardizem Cd 240 mg Capsule.cr] 240 mg PO Q12 #60 capsule.cr 12/10 Dronedarone Hydrochloride [Multaq 400 mg Tablet] 400 mg PO Q12 #60 tablet Epoetin Luis Alfredo [Procrit Inj 20,000 Unit/1 ml Vial (Renal)] 20,000 unit SUBCUT Tu@ 2000 #4 ml 12/10/17 Fluconazole [Diflucan 100 mg Tablet] 100 mg PO DAILY@1100 #7 tablet 12/10/17 Hum Insulin NPH/Reg Insulin Hm [Insulin 70-30 (NPH/Reg) 100 unit/mL] 15 unit SUBCUT QPM #1 unit 12/10/17 Hum Insulin NPH/Reg Insulin Hm [Insulin 70-30 (NPH/Reg) 100 unit/mL] 30 unit SUBCUT QAM #1 unit 12/10/17 Insulin Lispro [Humalog Insulin (Lispro) 100 unit/mL] 0 - 12 unit SUBCUT ACHSP PRN #1 unit 12/10/17 Ipratropium/Albuterol Sulfate [Duoneb 3 ml Ampul] 3 ml NEB RTQ6 #0 12/10/17 Lactobacillus Acidophilus [Acidophilus] 1 each PO BID #60 capsule 12/10/17 Prednisone [Deltasone 20 mg Tablet] 20 mg PO BID #1 tablet 12/10/17 History of Present Illness Admission Date/PCP: 11/28/17 15:30 KEILY CHRISTIANSON MD History of Present Illness: Ms. Tran is a 77-year-old female well-known to [facility] for obstructive ventilatory defect and chronic respiratory failure is noninvasive positive pressure ventilation at any time during her sleep or at home when she feels dyspnea. She has difficulty complying with her medical medical regimen or the noninvasive positive pressure ventilation. She presents with increasing shortness of breath increasing wheezing or coughing as well some yellow phlegm chills but no fever no nausea vomiting she has 1-2 episodes of diarrhea she is this pain she has had a history of exposure to passive smoke as a child as well as an adult. She sleeps on 2 pillows occasional PND frequent nocturnal cough no edema he admits to snoring restless sleep unrestful sleep nocturia and excessive daytime somnolence. Patient displays some early dementia and some of the history above has been obtained from her daughter. Hospital Course Hospital Course: This is a 77-year-old females with the multiple medical problem as able came to the emergency department with the shortness of the breath and atrial fibrillation's with a rapid ventricular responseAnd patient was admitted in the hospital started on IV steroids and nebulizer treatments and IV CardizemAnd also IV antibiotic Since diagnosed with MRSA pneumonia and patient also acute renal failure on chronic kidney disease Patient seen by Dr. Todd oil and gas superintendent seen by the Dr. Powers battery charger And also anemia which underwent for the endoscopy and colonoscopy with suggest some esophagitis and mild colonic ulcers and suggested Diflucan's and the PPI per Dr. Bal Patient's otherwise received the Procrit injections Patient's was treated with IV antibiotic and IV steroid and switch to the p.o. antibiotic and a p.o. steroid Patient seen by Dr. Patino he usually seen as outpatients Patients require long-term steroid per Dr. Patino's which prednisone 20 mg twice a day for 2 weeks then 20 mg daily Very extensive discussions with the daughter and the patient regarding all the test results patient is required to go to the rehab with the multiple comorbidity Physical Exam Vital Signs: Temp Pulse Resp BP Pulse Ox 98.3 F 70 16 146/64 H 97 12/10/17 07:25 12/10/17 07:25 12/10/17 07:25 12/10/17 07:25 12/10/17 07:25 Intake & Output 12/09/17 12/10/17 12/11/17 06:59 06:59 06:59 Intake Total 1830 1771 Balance 1830 1771 Weight 53.1 kg 53.4 kg General appearance: PRESENT: no acute distress, well-developed, well-nourished Head exam: PRESENT: atraumatic, normocephalic Eye exam: PRESENT: conjunctiva pink, EOMI, PERRLA. ABSENT: scleral icterus Ear exam: PRESENT: normal external ear exam Mouth exam: PRESENT: moist, tongue midline Neck exam: ABSENT: carotid bruit, JVD, lymphadenopathy, thyromegaly Respiratory exam: PRESENT: clear to auscultation koko. ABSENT: rales, rhonchi, wheezes Cardiovascular exam: PRESENT: RRR. ABSENT: diastolic murmur, rubs, systolic murmur Pulses: PRESENT: normal dorsalis pedis pul Vascular exam: PRESENT: normal capillary refill GI/Abdominal exam: PRESENT: normal bowel sounds, soft. ABSENT: distended, guarding, mass, organolmegaly, rebound, tenderness Rectal exam: PRESENT: deferred Extremities exam: PRESENT: full ROM. ABSENT: calf tenderness, clubbing, pedal edema Musculoskeletal exam: PRESENT: ambulatory Neurological exam: PRESENT: alert, awake, oriented to person, oriented to place , oriented to time, oriented to situation, CN II-XII grossly intact. ABSENT: motor sensory deficit Psychiatric exam: PRESENT: appropriate affect, normal mood. ABSENT: homicidal ideation, suicidal ideation Skin exam: PRESENT: dry, intact, warm. ABSENT: cyanosis, rash Results Laboratory Results: 12/09/17 09:13 12/09/17 09:13 12/09/17 12/09/17 09:13 09:13 WBC 13.8 H RBC 3.08 L Hgb 8.8 L Hct 27.3 L MCV 89 MCH 28.7 MCHC 32.4 RDW 18.5 H Plt Count 127 L Seg Neutrophils % Not Reportable Lymphocytes % Not Reportable Monocytes % Not Reportable Eosinophils % Not Reportable Basophils % Not Reportable Absolute Neutrophils Not Reportable Absolute Lymphocytes Not Reportable Absolute Monocytes Not Reportable Absolute Eosinophils Not Reportable Absolute Basophils Not Reportable Sodium 138.5 Potassium 4.3 Chloride 108 H Carbon Dioxide 16 L Anion Gap 15 BUN 43 H Creatinine 1.14 Est GFR ( Amer) 56 L Est GFR (Non-Af Amer) 46 L Glucose 539 H* Calcium 8.5 11/28/17 11/28/17 11/28/17 16:29 16:29 22:57 Creatine Kinase 90 58 CK-MB (CK-2) 2.02 Troponin I 0.033 11/28/17 11/29/17 11/29/17 22:57 05:03 05:03 Creatine Kinase 59 CK-MB (CK-2) 1.27 1.01 Troponin I 0.022 0.019 Impressions: Abdomen/Pelvis CT 11/29/17 00:00 IMPRESSION: No acute findings in the abdomen or pelvis. Chest X-Ray 12/05/17 00:00 IMPRESSION: Minimal right basilar airspace disease, atelectasis versus pneumonia. Given the large retrocardiac hiatal hernia, aspiration should be considered Transfer Plan - Time Spent with Patient Time spent with patient: Greater than 30 Minutes Qualifiers - * PATEINT BEING DISCHARGED WITH ANY OF THE FOLLOWING DIAGNOSIS?: No VTE patient discharged on overlapping Therapy?: Yes Plan Time Spent: Greater than 30 Minutes - Discharge the patient to the rehab with a bowel medications Fall precaution Check a CBC and Chem-7 in 1 week Follow with the Dr. Patino and follow with the Dr. Powers in 1 week and make appointment to see her Dr. Todd as outpatient
[2017-12-10] MEDS ORDERED: FUROSEMIDE INJ/PF 20 MG/2 ML SDV IV ONE (10:00)
[2017-12-10] MEDS: DRONEDARONE HYDROCHLORIDE 400 MG TABLET PO SCH (10:45)
[2017-12-10] MEDS: POTASSIUM CHLORIDE 10 MEQ TABLET.SA PO SCH (10:45)
[2017-12-10] MEDS: DILTIAZEM HCL 240 MG CAPSULE.CR PO SCH (10:45)
[2017-12-10] MEDS: PREDNISONE 20 MG TABLET PO SCH (10:45)
[2017-12-10] MEDS: LACTOBACILLUS ACIDOPHILUS 250 MG TAB PO SCH (10:45)
[2017-12-10] MEDS: LEVOFLOXACIN 500 MG TABLET PO SCH (10:46)
[2017-12-10] MEDS: FERROUS SULFATE 325 MG TABLET PO SCH (10:46)
[2017-12-10] MEDS: FLUCONAZOLE 100 MG TABLET PO SCH (10:46)
--- NOTE | 2017-12-10 13:08 | PDOC PROGRESS REPORT ---
Subjective Progress Note for:: 12/09/17 Subjective:: Patient noted to be feeling much better today. She is expecting discharge tomorrow. Pt is denying any chest arm or neck discomfort. Patient still has significant shortness of breath and on oxygen. Patient denying any PND, orthopnea. Patient denied any sustained palpitations, dizziness, syncope, near syncope. Patient denying any fever chills. Patient denying any other significant discomfort. Patient is maintaining sinus rhythm, no paroxysmal A. fib in the last 48 hours Review of systems: Rest review of systems negative. Medications: Medications have been reviewed. Reason For Visit: COPD ACUTE EXCE,AFIB RVR Physical Exam Vital Signs: Temp Pulse Resp BP Pulse Ox 97.6 F 77 19 143/63 H 96 12/09/17 19:36 12/09/17 19:36 12/09/17 19:36 12/09/17 19:36 12/09/17 19:36 Intake & Output 12/08/17 12/09/17 12/10/17 06:59 06:59 06:59 Intake Total 2014 1830 1450 Balance 2014 1830 1450 Weight 52.7 kg 53.1 kg Exam: GENERAL: well-nourished and in no acute distress. Alert and oriented x3 HEAD: Atraumatic, normocephalic. EYES: Pupils equal round and reactive to light, extraocular movements intact, sclera anicteric, conjunctiva are normal. ENT: TMs normal, nares patent, oropharynx clear without exudates. Moist mucous membranes. No oral ulcerations or bleeding gums noted NECK: supple without lymphadenopathy. Trachea is central. No cervical or axillary lymphadenopathy noted. Carotids are 2+, JVD WNL LUNGS: Respiration seems nonlabored, no significant accessory muscle action noted. Breath sounds clear to auscultation bilaterally and equal noted. No wheezes rales or rhonchi noted. No significant dullness noted on percussion. CHEST: Palpation of the chest wall shows no significant chest wall tenderness. No other significant abnormalities noted. HEART: [place] [employer] V[employer]OR, No PSH, 1/6 ROLY aortic area, 1/6 tran systolic murmur mitral area, no rubs, no gallops. ABDOMEN: Soft, no significant tenderness appreciated, normoactive bowel sounds. No guarding, no rebound. No rigidity noted . No masses appreciated. EXTREMITIES: Pedal pulses are 1-2+, no calf tenderness noted. No clubbing or cyanosis. 1+ pedal edema noted NEUROLOGICAL: Focused neurological exam showed no significant neurologic deficit. Normal speech, no focal weakness appreciated. PSYCH: Normal mood, normal affect. Judgment and insight within normal limits. SKIN: No significant ecchymosis, rash, ulcerations or signs of pruritus noted. MUSCULOSKELETAL EXAM: No significant joint swelling noted. Results Laboratory Results: 12/09/17 09:13 12/09/17 09:13 12/09/17 12/09/17 09:13 09:13 WBC 13.8 H RBC 3.08 L Hgb 8.8 L Hct 27.3 L MCV 89 MCH 28.7 MCHC 32.4 RDW 18.5 H Plt Count 127 L Seg Neutrophils % Not Reportable Lymphocytes % Not Reportable Monocytes % Not Reportable Eosinophils % Not Reportable Basophils % Not Reportable Absolute Neutrophils Not Reportable Absolute Lymphocytes Not Reportable Absolute Monocytes Not Reportable Absolute Eosinophils Not Reportable Absolute Basophils Not Reportable Sodium 138.5 Potassium 4.3 Chloride 108 H Carbon Dioxide 16 L Anion Gap 15 BUN 43 H Creatinine 1.14 Est GFR ( Amer) 56 L Est GFR (Non-Af Amer) 46 L Glucose 539 H* Calcium 8.5 11/28/17 11/28/17 11/28/17 16:29 16:29 22:57 Creatine Kinase 90 58 CK-MB (CK-2) 2.02 Troponin I 0.033 11/28/17 11/29/17 11/29/17 22:57 05:03 05:03 Creatine Kinase 59 CK-MB (CK-2) 1.27 1.01 Troponin I 0.022 0.019 Impressions: Abdomen/Pelvis CT 11/29/17 00:00 IMPRESSION: No acute findings in the abdomen or pelvis. Chest X-Ray 12/05/17 00:00 IMPRESSION: Minimal right basilar airspace disease, atelectasis versus pneumonia. Given the large retrocardiac hiatal hernia, aspiration should be considered Assessment & Plan - Diagnosis (1) Atrial fibrillation with RVR Is this a current diagnosis for this admission?: Yes (2) Anemia Qualifiers: Anemia type: unspecified type Qualified Code(s): D64.9 - Anemia, unspecified Is this a current diagnosis for this admission?: Yes (3) Asthma exacerbation Qualifiers: Asthma severity: unspecified severity Asthma persistence: persistent Qualified Code(s): J45.901 - Unspecified asthma with (acute) exacerbation Is this a current diagnosis for this admission?: Yes (4) Chronic kidney disease Qualifiers: Chronic kidney disease stage: stage 2 (mild) Qualified Code(s): N18.2 - Chronic kidney disease, stage 2 (mild) Is this a current diagnosis for this admission?: Yes (5) Congestive heart failure Qualifiers: Heart failure type: diastolic Heart failure chronicity: chronic Qualified Code(s): I50.32 - Chronic diastolic (congestive) heart failure Is this a current diagnosis for this admission?: Yes (6) Coronary artery disease Qualifiers: Coronary Disease-Associated Artery/Lesion type: unspecified vessel or lesion type Is this a current diagnosis for this admission?: Yes (7) COPD (chronic obstructive pulmonary disease) Qualifiers: COPD type: unspecified COPD Qualified Code(s): J44.9 - Chronic obstructive pulmonary disease, unspecified Is this a current diagnosis for this admission?: Yes (8) Pneumonia Qualifiers: Pneumonia type: due to unspecified organism Laterality: right Lung location: lower lobe of lung Qualified Code(s): J18.1 - Lobar pneumonia, unspecified organism Is this a current diagnosis for this admission?: Yes - Notes Notes: Atrial fibrillation with rapid ventricular response: No recurrence for 48 hours. Patient tolerating increased Cardizem CD 240 mg p.o. twice daily. Patient seems a borderline candidate for chronic anticoagulation due to increased has bled score. Patient seems to be tolerating this dose well. CHF: Patient today seems compensated at this point. Watch for volume status on a daily basis. Continue baseline small dose of diuretics. Coronary artery disease: Symptomatically stable. Patient to report any chest pain. Chronic kidney disease: Currently stable patient being followed by clinical dietetic technician. Asthma exacerbation: Continue with bronchodilator and steroid therapy as needed. Patient seems to have severe underlying COPD/asthma. Anemia: Currently stable try maintain hemoglobin above 8 g percent. Gastroenterology following the patient. Gastroenterology seen the patient and advised antifungal treatment for presumed esophageal candidiasis. - Time Time with patient: 15-25 minutes - CODE STATUS : was discussed, patient remains DO NOT RESUSCITATE. Surrogate decision-maker unchanged. Multiple medical problems were addressed. More than 50% of the time spent coordinating care, discussing management plans with involved caregivers. Management plans discussed with involved personnels. Medical decision making was of moderate to high complexity, patient's has multiple comorbidities. Medications reviewed and adjusted accordingly: Yes
--- NOTE | 2017-12-10 13:11 | PDOC PROGRESS REPORT ---
Subjective Progress Note for:: 12/10/17 Subjective:: Patient noted to be feeling much better today. She is expecting discharge today. Pedal edema seems somewhat increased. Ordered for IV Lasix 20 mg to be given this morning prior to discharge. Pt is denying any chest arm or neck discomfort. Patient still has significant shortness of breath and on oxygen. Patient denying any PND, orthopnea. Patient denied any sustained palpitations, dizziness, syncope, near syncope. Patient denying any fever chills. Patient denying any other significant discomfort. Patient is maintaining sinus rhythm, Review of systems: Rest review of systems negative. Medications: Medications have been reviewed. Reason For Visit: COPD ACUTE EXCE,AFIB RVR Physical Exam Vital Signs: Temp Pulse Resp BP Pulse Ox 98.3 F 81 18 146/64 H 97 12/10/17 07:25 12/10/17 12:04 12/10/17 12:04 12/10/17 07:25 12/10/17 12:04 Intake & Output 12/09/17 12/10/17 12/11/17 06:59 06:59 06:59 Intake Total 1830 1771 Balance 1830 1771 Weight 53.1 kg 53.4 kg Exam: GENERAL: well-nourished and in no acute distress. Alert and oriented x3 HEAD: Atraumatic, normocephalic. EYES: Pupils equal round and reactive to light, extraocular movements intact, sclera anicteric, conjunctiva are normal. ENT: TMs normal, nares patent, oropharynx clear without exudates. Moist mucous membranes. No oral ulcerations or bleeding gums noted NECK: supple without lymphadenopathy. Trachea is central. No cervical or axillary lymphadenopathy noted. Carotids are 2+, JVD borderline elevated LUNGS: Respiration seems nonlabored, no significant accessory muscle action noted. Breath sounds clear to auscultation bilaterally and equal noted. No wheezes rales or rhonchi noted. No significant dullness noted on percussion. CHEST: Palpation of the chest wall shows no significant chest wall tenderness. No other significant abnormalities noted. HEART: [place] SENIOR LITIGATION PARALEGAL, No PSH, 1/6 ROLY aortic area, 1/6 tran systolic murmur mitral area, no rubs, no gallops. ABDOMEN: Soft, no significant tenderness appreciated, normoactive bowel sounds. No guarding, no rebound. No rigidity noted . No masses appreciated. EXTREMITIES: Pedal pulses are 1-2+, no calf tenderness noted. No clubbing or cyanosis. 2 + pedal edema noted NEUROLOGICAL: Focused neurological exam showed no significant neurologic deficit. Normal speech, no focal weakness appreciated. PSYCH: Normal mood, normal affect. Judgment and insight within normal limits. SKIN: No significant ecchymosis, rash, ulcerations or signs of pruritus noted. MUSCULOSKELETAL EXAM: No significant joint swelling noted. Results Laboratory Results: 12/09/17 09:13 12/09/17 09:13 11/28/17 11/28/17 11/28/17 16:29 16:29 22:57 Creatine Kinase 90 58 CK-MB (CK-2) 2.02 Troponin I 0.033 11/28/17 11/29/17 11/29/17 22:57 05:03 05:03 Creatine Kinase 59 CK-MB (CK-2) 1.27 1.01 Troponin I 0.022 0.019 EKG Comments: Shows sinus rhythm without any sustained tacky or bradycardia arrhythmias. Impressions: Abdomen/Pelvis CT 11/29/17 00:00 IMPRESSION: No acute findings in the abdomen or pelvis. Chest X-Ray 12/05/17 00:00 IMPRESSION: Minimal right basilar airspace disease, atelectasis versus pneumonia. Given the large retrocardiac hiatal hernia, aspiration should be considered Assessment & Plan - Diagnosis (1) Atrial fibrillation with RVR Is this a current diagnosis for this admission?: Yes (2) Anemia Qualifiers: Anemia type: unspecified type Qualified Code(s): D64.9 - Anemia, unspecified Is this a current diagnosis for this admission?: Yes (3) Asthma exacerbation Qualifiers: Asthma severity: unspecified severity Asthma persistence: persistent Qualified Code(s): J45.901 - Unspecified asthma with (acute) exacerbation Is this a current diagnosis for this admission?: Yes (4) Chronic kidney disease Qualifiers: Chronic kidney disease stage: stage 2 (mild) Qualified Code(s): N18.2 - Chronic kidney disease, stage 2 (mild) Is this a current diagnosis for this admission?: Yes (5) Congestive heart failure Qualifiers: Heart failure type: diastolic Heart failure chronicity: chronic Qualified Code(s): I50.32 - Chronic diastolic (congestive) heart failure Is this a current diagnosis for this admission?: Yes (6) Coronary artery disease Qualifiers: Coronary Disease-Associated Artery/Lesion type: unspecified vessel or lesion type Is this a current diagnosis for this admission?: Yes (7) COPD (chronic obstructive pulmonary disease) Qualifiers: COPD type: unspecified COPD Qualified Code(s): J44.9 - Chronic obstructive pulmonary disease, unspecified Is this a current diagnosis for this admission?: Yes (8) Pneumonia Qualifiers: Pneumonia type: due to unspecified organism Laterality: right Lung location: lower lobe of lung Qualified Code(s): J18.1 - Lobar pneumonia, unspecified organism Is this a current diagnosis for this admission?: Yes - Notes Notes: Atrial fibrillation with rapid ventricular response: Patient tolerating multaq and Cardizem CD at 240 mg p.o. twice daily, patient seems to be tolerating this dose well. CHF: Patient today seems compensated at this point. Patient noted to have increased pedal edema and borderline elevated JVP this morning. Ordered for IV Lasix 20 mg 1 dose. Coronary artery disease: Symptomatically stable. Patient to report any chest pain. 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 Asthma exacerbation: Continue with bronchodilator and steroid therapy as needed. Patient seems to have severe underlying COPD/asthma. Anemia: Currently stable try maintain hemoglobin above 8 g percent. Patient wishes to be evaluated for underlying sleep apnea syndrome. Will be happy to schedule this test as an outpatient. - Time Time with patient: Greater than 35 minutes - CODE STATUS was discussed, patient remains DNR. Surrogate decision-maker unchanged. Multiple medical problems were addressed. More than 50% of the time spent coordinating care, discussing management plans with involved caregivers. Management plans discussed with involved personnels. Medical decision making was of moderate to high complexity , patient's has multiple comorbidities. Medications reviewed and adjusted accordingly: Yes
--- NOTE | 2017-12-10 16:11 | PDOC PROGRESS REPORT ---
Subjective Progress Note for:: 12/10/17 Subjective:: I am better Reason For Visit: COPD ACUTE EXCE,AFIB RVR Physical Exam Vital Signs: Temp Pulse Resp BP Pulse Ox 98.3 F 81 18 146/64 H 97 12/10/17 07:25 12/10/17 12:04 12/10/17 12:04 12/10/17 07:25 12/10/17 12:04 Intake & Output 12/09/17 12/10/17 12/11/17 06:59 06:59 06:59 Intake Total 1830 1771 Balance 1830 1771 Weight 53.1 kg 53.4 kg General appearance: PRESENT: no acute distress, disheveled, well-developed Head exam: PRESENT: atraumatic, normocephalic Eye exam: PRESENT: conjunctiva pale, EOMI. ABSENT: nystagmus, periorbital swelling, scleral icterus Mouth exam: PRESENT: moist, neck supple, tongue midline Neck exam: ABSENT: carotid bruit, JVD, lymphadenopathy, thyromegaly, tracheal deviation, tracheostomy Respiratory exam: PRESENT: decreased breath sounds, prolonged expiratory phas, rhonchi, symmetrical, unlabored, wheezes. ABSENT: rales, retraction, stridor, tachypnea Cardiovascular exam: PRESENT: RRR, +S1, +S2 Pulses: PRESENT: normal radial pulses GI/Abdominal exam: PRESENT: diminished bowel sounds, soft Extremities exam: ABSENT: calf tenderness, clubbing Musculoskeletal exam: ABSENT: deformity, dislocation Neurological exam: PRESENT: awake Skin exam: PRESENT: dry, warm Results Laboratory Results: 12/09/17 09:13 12/09/17 09:13 11/28/17 11/28/17 11/28/17 16:29 16:29 22:57 Creatine Kinase 90 58 CK-MB (CK-2) 2.02 Troponin I 0.033 11/28/17 11/29/17 11/29/17 22:57 05:03 05:03 Creatine Kinase 59 CK-MB (CK-2) 1.27 1.01 Troponin I 0.022 0.019 Impressions: Abdomen/Pelvis CT 11/29/17 00:00 IMPRESSION: No acute findings in the abdomen or pelvis. Chest X-Ray 12/05/17 00:00 IMPRESSION: Minimal right basilar airspace disease, atelectasis versus pneumonia. Given the large retrocardiac hiatal hernia, aspiration should be considered Assessment & Plan - Diagnosis (1) Acute exacerbation of COPD with asthma Is this a current diagnosis for this admission?: Yes Plan: Stable at this time (2) Chronic kidney disease Qualifiers: Chronic kidney disease stage: stage 2 (mild) Qualified Code(s): N18.2 - Chronic kidney disease, stage 2 (mild) Is this a current diagnosis for this admission?: Yes Plan: Unchanged (3) Congestive heart failure Qualifiers: Heart failure type: diastolic Heart failure chronicity: chronic Qualified Code(s): I50.32 - Chronic diastolic (congestive) heart failure Is this a current diagnosis for this admission?: Yes Plan: Chronic but stable
== END 2017-12-10 13:14 | DRG 178 ==
LOC: ER 12:56 → EH 15:30 → 3N 17:30
PROVIDERS: ADMIT Family Medicine; ATTEND Family Medicine
PROC: 3E0F73Z Introduction of Anti-inflammatory into Respiratory Tract, Via Natural or Artificial Opening (ICD-10-PCS; 2017-11-28)
PROC: 5A09557 Assistance with Respiratory Ventilation, Greater than 96 Consecutive Hours, Continuous Positive Airway Pressure (ICD-10-PCS; 2017-11-30)
PROC: 0DBE8ZX Excision of Large Intestine, Via Natural or Artificial Opening Endoscopic, Diagnostic (ICD-10-PCS; principal; 2017-12-04 14:00)
PROC: 0DB68ZX Excision of Stomach, Via Natural or Artificial Opening Endoscopic, Diagnostic (ICD-10-PCS; 2017-12-04 14:00)
DX: J15.212 Pneumonia due to Methicillin resistant Staphylococcus aureus (principal); J45.901 Unspecified asthma with (acute) exacerbation; J44.1 Chronic obstructive pulmonary disease with (acute) exacerbation; E27.1 Primary adrenocortical insufficiency; I13.0 Hypertensive heart and chronic kidney disease with heart failure and stage 1 through stage 4 chronic kidney disease, or unspecified chronic kidney disease; I50.32 Chronic diastolic (congestive) heart failure; K63.3 Ulcer of intestine; B37.81 Candidal esophagitis; J44.0 Chronic obstructive pulmonary disease with (acute) lower respiratory infection; N17.9 Acute kidney failure, unspecified; J96.10 Chronic respiratory failure, unspecified whether with hypoxia or hypercapnia; K29.70 Gastritis, unspecified, without bleeding; N18.2 Chronic kidney disease, stage 2 (mild); I48.0 Paroxysmal atrial fibrillation; K64.8 Other hemorrhoids; I25.10 Atherosclerotic heart disease of native coronary artery without angina pectoris; D63.1 Anemia in chronic kidney disease; M19.91 Primary osteoarthritis, unspecified site; R13.10 Dysphagia, unspecified; Z66 Do not resuscitate; E11.22 Type 2 diabetes mellitus with diabetic chronic kidney disease; E78.5 Hyperlipidemia, unspecified; E11.9 Type 2 diabetes mellitus without complications; K21.9 Gastro-esophageal reflux disease without esophagitis; K44.9 Diaphragmatic hernia without obstruction or gangrene; E87.6 Hypokalemia; M19.90 Unspecified osteoarthritis, unspecified site; R19.7 Diarrhea, unspecified; F32.9 Major depressive disorder, single episode, unspecified; Z79.4 Long term (current) use of insulin; Z79.899 Other long term (current) drug therapy; Z90.49 Acquired absence of other specified parts of digestive tract; Z88.0 Allergy status to penicillin; Z91.013 Allergy to seafood; Z88.6 Allergy status to analgesic agent; Z88.8 Allergy status to other drugs, medicaments and biological substances; Z87.891 Personal history of nicotine dependence; Z82.49 Family history of ischemic heart disease and other diseases of the circulatory system; Z79.52 Long term (current) use of systemic steroids
CPT/HCPCS: 00813; 36415; 36600; 43239; 45380; 71045; 74176; 80048; 80053; 80162; 82550; 82553; 82607; 82728; 82746; 82803; 82962; 83540; 83550; 83605; 83690; 83735; 83880; 84100; 84443; 84466; 84484; 85025; 85027; 85045; 85610; 87040; 87070; 87077; 87186; 87205; 87210; 87493; 88305; 88342; 93005; 93010; 93306; 94060; 94640; 94660; 94667; 94668; 94799; 96365; 96367; 96368; 96375; 99291; G8978-GP; G8979-GP; G8996-GN; G8997-GN; J1160; J1200; J1644; J1815; J1940; J1956; J2250; J2704; J2920; J2930; J3475; J3480; J3490; J7030; J7512; J7614; J7620; Q4081; S0028

== ENCOUNTER 2017-12-11 19:05 | Emergency (ER) | payer MEDICARE, OTHER ==
--- NOTE | 2017-12-11 20:38 | ER Document Report ---
ED Medical Screen (RME) - General Chief Complaint: General Weakness Stated Complaint: GENERAL WEAKNESS Time Seen by Provider: 12/11/17 20:37 Mode of Arrival: Wheelchair Information source: Patient, Relative Notes: Patient was released from a 10 day stay in the hospital yesterday. She was a patient at this hospital. She was in for pneumonia. Family states today when they went to rehab to check on the patient she appeared to have an altered level of consciousness and was hard to arouse. Therefore they brought patient here for evaluation. TRAVEL OUTSIDE OF THE [place] IN LAST 30 DAYS: No - Related Data Allergies/Adverse Reactions: aspirin [Aspirin] Allergy (Verified 11/25/17 15:43) colchicine Allergy (Verified 11/28/17 15:56) iodine Allergy (Verified 11/28/17 15:56) Penicillins Allergy (Verified 11/25/17 15:43) Hives shellfish derived Allergy (Verified 11/28/17 15:56) Past Medical History - Past Medical History Cardiac Medical History: Reports: Hx Atrial Fibrillation, Hx Congestive Heart Failure, Hx Coronary Artery Disease, Hx Hypercholesterolemia, Hx Hypertension Pulmonary Medical History: Reports: Hx Asthma, Hx Bronchitis, Hx Pneumonia Endocrine Medical History: Reports: Hx Diabetes Mellitus Type 2 Renal/ Medical History: Denies: Hx Peritoneal Dialysis GI Medical History: Reports: Hx Gastroesophageal Reflux Disease, Hx Hiatal Hernia Musculoskeltal Medical History: Reports Hx Arthritis Psychiatric Medical History: Reports: Hx Depression Past Surgical History: Reports: Hx Abdominal Surgery - colon resection, Hx Appendectomy - Immunizations History of Influenza Vaccine for 07/2017 - 12/2017 Season: Yes Influenza Administration Date for 07/2017 - 12/2017 Season: 07/14/17 Physical Exam - Vital signs Vitals: Temp Pulse BP Pulse Ox 98.0 F 86 102/66 98 12/11/17 19:44 12/11/17 19:44 12/11/17 19:44 12/11/17 19:44 Course - Vital Signs Vital signs: Temp Pulse Resp BP Pulse Ox 98.0 F 86 102/66 98 12/11/17 19:44 12/11/17 19:44 12/11/17 19:44 12/11/17 19:44
--- NOTE | 2017-12-11 21:00 | RADIOLOGY REPORT (SQ) ---
EXAM DESCRIPTION: CT HEAD WITHOUT COMPLETED DATE/TIME: 12/11/2017 8:52 pm REASON FOR STUDY: aloc COMPARISON: 07/24/2015. TECHNIQUE: Axial images acquired through the brain without intravenous contrast. Images reviewed wi th bone, brain and subdural windows. Images stored on PACS. All CT scanners at this facility use dose modulation, iterative reconstruction, and/or weight based d osing when appropriate to reduce radiation dose to as low as reasonably achievable (ALARA). [facility]: Dose Right [facility]: CareDose [facility]: Dose Right [facility]: Teradose 4D [facility]: Smart [employer] RADIATION DOSE: mGy. LIMITATIONS: None. FINDINGS: VENTRICLES: Prominent. CEREBRUM: No masses. No hemorrhage. No midline shift. Areas of low density in the white matter mos t likely due to chronic micro-vascular ischemic change. No evidence for acute infarction. CEREBELLUM: No masses. No hemorrhage. No alteration of density. No evidence for acute infarction. EXTRAAXIAL SPACES: Mild age-related involutional change. No fluid collections. No masses. ORBITS AND GLOBE: No intra- or extraconal masses. Normal contour of globe without masses. CALVARIUM: No fracture. PARANASAL SINUSES: No fluid or mucosal thickening. SOFT TISSUES: No mass or hematoma. OTHER: No other significant finding. IMPRESSION: MILD CHRONIC CHANGES OF ATROPHY AND MICROVASCULAR ISCHEMIA. NO ACUTE PROCESS. EVIDENCE OF ACUTE STROKE: NO. TECHNICAL DOCUMENTATION: JOB ID: [id number] Quality ID # [id number]: Final reports with documentation of one or more dose reduction techniques (e.g., Au tomated exposure control, adjustment of the mA and/or kV according to patient size, use of iterative reconstruction technique) 2010 [employer]- All Rights Reserved Reading location - IP/workstation name: [email or web address]
[2017-12-11 21:38] LABS: HEMATOCRIT 29.9 % (36.0-47.0); HEMOGLOBIN 9.7 g/dL (12.0-15.5); MEAN CORPUSCULAR HGB CONC 32.3 g/dL (32.0-36.0); MEAN CORPUSCULAR VOLUME 87 fl (80-97); PLATELET COUNT 104 10^3/uL (150-450); RED BLOOD COUNT 3.44 10^6/uL (3.72-5.28); RED CELL DISTRIBUTION WIDTH 18.1 % (11.5-14.0); WHITE BLOOD COUNT 17.2 10^3/uL (4.0-10.5)
[2017-12-11 21:44] LABS: ALANINE AMINOTRANSFERASE 62 U/L (9-52); ALBUMIN 2.7 g/dL (3.5-5.0); ALKALINE PHOSPHATASE 41 U/L (38-126); ANION GAP 7 (5-19); ASPARTATE AMINO TRANSFERASE 37 U/L (14-36); BILIRUBIN,DIRECT 0.4 mg/dL (0.0-0.4); BILIRUBIN,TOTAL 0.5 mg/dL (0.2-1.3); BLOOD UREA NITROGEN 40 mg/dL (7-20); CALCIUM 8.5 mg/dL (8.4-10.2); CARBON DIOXIDE 21 mmol/L (22-30); CHLORIDE 111 mmol/L (98-107); GLUCOSE 190 mg/dL (75-110); POTASSIUM 4.8 mmol/L (3.6-5.0); SODIUM 139.1 mmol/L (137-145); TOTAL PROTEIN 4.7 g/dL (6.3-8.2)
--- NOTE | 2017-12-11 21:57 | ER Document Report ---
ED General - General Chief Complaint: General Weakness Stated Complaint: GENERAL WEAKNESS Time Seen by Provider: 12/11/17 20:37 Mode of Arrival: Wheelchair Notes: Patient is a 77-year-old female that comes emergency department for chief complaint of excessive tiredness. Patient was discharged to rehab facility at [place] after a 10 day hospitalization secondary to pneumonia, A. fib with RVR. Patient is on clindamycin which was found to be a sensitive antibiotic, she is on 2 L nasal cannula at all times, she has DO NOT RESUSCITATE advanced directives. She has complicated medical history including A. 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 Family states that when they came to visit her color was "dark" and she was hard to arouse and they became concerned. Patient was not having any complaints including denying headache, difficulty breathing, fever, vomiting. She denies any focal weakness. TRAVEL OUTSIDE OF THE [place] IN LAST 30 DAYS: No - Related Data Allergies/Adverse Reactions: aspirin [Aspirin] Allergy (Verified 11/25/17 15:43) colchicine Allergy (Verified 11/28/17 15:56) iodine Allergy (Verified 11/28/17 15:56) Penicillins Allergy (Verified 11/25/17 15:43) Hives shellfish derived Allergy (Verified 11/28/17 15:56) Past Medical History - General Information source: Patient, Relative - Social History Smoking Status: Former Smoker Frequency of alcohol use: None Drug Abuse: None Lives with: [facility] - rehab Family History: CAD, Hyperlipidemia, Hypertension Patient has suicidal ideation: No Patient has homicidal ideation: No - Past Medical History Cardiac Medical History: Reports: Hx Atrial Fibrillation, Hx Congestive Heart Failure, Hx Coronary Artery Disease, Hx Hypercholesterolemia, Hx Hypertension Pulmonary Medical History: Reports: Hx Asthma, Hx Bronchitis, Hx Pneumonia Endocrine Medical History: Reports: Hx Diabetes Mellitus Type 2 Renal/ Medical History: Denies: Hx Peritoneal Dialysis GI Medical History: Reports: Hx Gastroesophageal Reflux Disease, Hx Hiatal Hernia Musculoskeltal Medical History: Reports Hx Arthritis Psychiatric Medical History: Reports: Hx Depression Past Surgical History: Reports: Hx Abdominal Surgery - colon resection, Hx Appendectomy Review of Systems - Review of Systems Constitutional: See HPI EENT: No symptoms reported Cardiovascular: No symptoms reported Respiratory: See HPI Gastrointestinal: No symptoms reported Genitourinary: No symptoms reported Female Genitourinary: No symptoms reported Musculoskeletal: No symptoms reported Skin: No symptoms reported Hematologic/Lymphatic: No symptoms reported Neurological/Psychological: See HPI Physical Exam - Vital signs Vitals: Temp Pulse BP Pulse Ox 98.0 F 86 102/66 98 12/11/17 19:44 12/11/17 19:44 12/11/17 19:44 12/11/17 19:44 Interpretation: Normal - General General appearance: Appears well, Other - Patient sleeping but easily aroused In distress: None - HEENT Head: Normocephalic, Atraumatic Eyes: Normal Conjunctiva: Normal Extraocular movements intact: Yes Eyelashes: Normal Pupils: PERRL Nasal: Normal Mouth/Lips: Normal Mucous membranes: Normal Pharynx: Normal Neck: Normal - Respiratory Respiratory status: No respiratory distress. No: Respiratory distress, Labored , Tachypnea Chest status: Nontender Breath sounds: Normal. No: Decreased air movement, Nonproductive cough, Wheezing Chest palpation: Normal - Cardiovascular Rhythm: Regular. No: Tachycardia Heart sounds: Normal auscultation, S1 appreciated, S2 appreciated Murmur: No Normal capillary refill: Yes - Abdominal Inspection: Normal Distension: No distension Bowel sounds: Normal Tenderness: Nontender. No: Tender, Guarding Organomegaly: No organomegaly - Back Back: Normal, Nontender. 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 She is oriented, cooperates with a normal neurological exam. CT of the head reviewed, unremarkable, venous blood gas does not show hypercarbia or acidosis. CBC shows leukocytosis but this is nonspecific with patient being on steroids. She continues to be on clindamycin. Chest x-ray shows possibly slightly worse infiltrate. Chemistry baseline, urinalysis unremarkable. Called and spoke with Dr. Christianson, patient's provider, reviewed patient's presentation, workup. Because of patient's unremarkable presentation, unremarkable vital signs, nonspecific workup at this time patient will not be admitted to the hospital. Patient and family are very agreeable with this, they did not want to be admitted to the hospital. Patient and family state they do not think patient's oxygen was turned on correctly at the facility, they state they will double check this from the get back. Discussed return precautions in detail, patient and family state understanding and agreement. - Vital Signs Vital signs: Temp Pulse Resp BP Pulse Ox 98.0 F 86 14 119/51 L 99 12/11/17 19:44 12/11/17 19:44 12/12/17 00:01 12/12/17 00:01 12/12/17 00:01 - Laboratory Result Diagrams: 12/11/17 21:20 12/11/17 21:20 Laboratory results interpreted by me: 12/11/17 12/11/17 12/11/17 21:20 21:20 22:20 WBC 17.2 H RBC 3.44 L Hgb 9.7 L Hct 29.9 L RDW 18.1 H Plt Count 104 L Seg Neuts % (Manual) 92 H Band Neutrophils % 1 L Lymphocytes % (Manual) 3 L Abs Neuts (Manual) 16.0 H Chloride 111 H Carbon Dioxide 21 L BUN 40 H Est GFR ( Amer) 56 L Est GFR (Non-Af Amer) 46 L Glucose 190 H AST 37 H ALT 62 H Total Protein 4.7 L Albumin 2.7 L Urine Blood SMALL H Discharge - Discharge Clinical Impression: Drowsiness Condition: Stable Disposition: HOME, SELF-CARE Additional Instructions: No concerning abnormality is seen on her evaluation and workup here. Make sure her oxygen is working, make sure that she gets her nebulized treatments every 8 hours, continue current medications, follow-up with her provider. Return for any concerning or worsening symptoms including fever, difficulty breathing, altered mental status, vomiting, or any other concerning symptoms. Referrals: KEILY CHRISTIANSON MD [Primary Care Provider] - Follow up as needed
[2017-12-11] MEDS ORDERED: NORMAL SALINE 1000 ML 250 ML IV ONE (22:02)
[2017-12-11 22:04] LABS: ABSOLUTE LYMPHOCYTES# (MANUAL) 0.5 10^3/uL (0.5-4.7); ABSOLUTE MONOCYTES # (MANUAL) 0.7 10^3/uL (0.1-1.4); BAND NEUTROPHILS % (MANUAL) 1 % (3-5); BASOPHILS % (MANUAL) 0 % (0-2); EOSINOPHILS % (MANUAL) 0 % (0-6); LYMPHOCYTES % (MANUAL) 3 % (13-45); MONOCYTES % (MANUAL) 4 % (3-13); SEGMENTED NEUTROPHILS % (MAN) 92 % (42-78); TOTAL CELLS COUNTED 100
[2017-12-11 22:06] LABS: ANISOCYTOSIS 2+; OVALOCYTES 1+; PLATELET COMMENT DECREASED; PLATELET LARGE PRESENT; POIKILOCYTOSIS 1+; POLYCHROMASIA SLIGHT
--- NOTE | 2017-12-11 22:18 | RADIOLOGY REPORT (SQ) ---
EXAM DESCRIPTION: CHEST SINGLE VIEW COMPLETED DATE/TIME: 12/11/2017 10:08 pm REASON FOR STUDY: weakness, AMS COMPARISON: 12/05/2017. EXAM PARAMETERS: NUMBER OF VIEWS: One view. TECHNIQUE: Single frontal radiographic view of the chest acquired. RADIATION DOSE: NA LIMITATIONS: None. FINDINGS: LUNGS AND PLEURA: Patchy basilar densities, slightly more prominent. MEDIASTINUM AND HILAR STRUCTURES: No masses. Contour normal. HEART AND VASCULAR STRUCTURES: Mild cardiomegaly. BONES: No acute findings. HARDWARE: None in the chest. OTHER: Large hiatal hernia. IMPRESSION: 1. BASILAR ATELECTASIS VERSUS INFILTRATE SLIGHTLY MORE PROMINENT. 2. STABLE MILD CARDIOMEGALY. LARGE HIATAL HERNIA. TECHNICAL DOCUMENTATION: JOB ID: [id number] [employer]- All Rights Reserved Reading location - IP/workstation name: [email or web address]
[2017-12-11 22:48] LABS: APPEARANCE,URINE CLEAR; BILIRUBIN,URINE NEGATIVE (NEGATIVE); COLOR,URINE YELLOW; GLUCOSE, URINE NEGATIVE (NEGATIVE); KETONES,URINE NEGATIVE (NEGATIVE); LEUKOCYTE ESTERASE,URINE NEGATIVE (NEGATIVE); NITRITE,URINE NEGATIVE (NEGATIVE); PROTEIN,URINE NEGATIVE (NEGATIVE); URINE SPECIFIC GRAVITY 1.009; UROBILINOGEN,URINE NEGATIVE mg/dL (<2.0)
[2017-12-11 22:57] LABS: VENOUS BLOOD BASE EXCESS -1.6 mmol/L; VENOUS BLOOD PCO2 38.4 mmHg (35-63); VENOUS BLOOD PH 7.4 (7.30-7.42)
[2017-12-12 00:32] VITALS: BP 119/51
== END 2017-12-12 00:34 | disposition home or self-care (01) ==
LOC: ER 19:05
DX: R40.0 Somnolence (principal); R53.1 Weakness; I48.91 Unspecified atrial fibrillation; I50.9 Heart failure, unspecified; I25.10 Atherosclerotic heart disease of native coronary artery without angina pectoris; E27.1 Primary adrenocortical insufficiency; Z87.891 Personal history of nicotine dependence
CPT/HCPCS: 36415; 70450; 71045; 80053; 81001; 82803; 85025; 99285

== ENCOUNTER 2017-12-31 11:51 | Outpatient (CLI) | payer MEDICARE, OTHER ==
[2017-12-31 12:53] LABS: HEMATOCRIT 25.9 % (36.0-47.0); HEMOGLOBIN 8.3 g/dL (12.0-15.5); MEAN CORPUSCULAR HEMOGLOBIN 26.4 pg (27.0-33.4); MEAN CORPUSCULAR HGB CONC 32.2 g/dL (32.0-36.0); MEAN CORPUSCULAR VOLUME 82 fl (80-97); PLATELET COUNT 490 10^3/uL (150-450); RED BLOOD COUNT 3.16 10^6/uL (3.72-5.28); RED CELL DISTRIBUTION WIDTH 18.6 % (11.5-14.0); WHITE BLOOD COUNT 11.4 10^3/uL (4.0-10.5)
[2017-12-31] MEDS ORDERED: FUROSEMIDE INJ/PF 20 MG/2 ML SDV IV PRN (13:11)
[2017-12-31 20:15] VITALS: BP 118/68
[2017-12-31 21:50] LABS: MEAN CORPUSCULAR HGB CONC 32.9 g/dL (32.0-36.0); MEAN CORPUSCULAR VOLUME 82 fl (80-97); PLATELET COUNT 438 10^3/uL (150-450); RED BLOOD COUNT 4.26 10^6/uL (3.72-5.28); RED CELL DISTRIBUTION WIDTH 16.6 % (11.5-14.0); WHITE BLOOD COUNT 11.1 10^3/uL (4.0-10.5)
[2017-12-31 21:51] LABS: HEMOGLOBIN 11.5 g/dL (12.0-15.5)
== END 2017-12-31 22:03 ==
LOC: II 11:51 → 2S 12:04 → II 22:03
PROVIDERS: ATTEND Internal Medicine
PROC: 30233N1 Transfusion of Nonautologous Red Blood Cells into Peripheral Vein, Percutaneous Approach (ICD-10-PCS; principal; 2017-12-31)
PROC: 3E033GC Introduction of Other Therapeutic Substance into Peripheral Vein, Percutaneous Approach (ICD-10-PCS; 2017-12-31)
DX: D50.8 Other iron deficiency anemias (principal)
CPT/HCPCS: 86900; 86901; 36415; 36430; 86850; 85027; 86920; P9016; J1940; 96374

== ENCOUNTER 2018-01-01 17:16 | Inpatient (IN) | payer MEDICARE ==
[2018-01-01] MEDS ORDERED: ACETAMINOPHEN 325 MG TABLET PO ONE ×2 (17:49→22:49)
[2018-01-01 18:20] LABS: RED CELL DISTRIBUTION WIDTH 17.3 % (11.5-14.0)
[2018-01-01 18:21] LABS: VENOUS BLOOD BASE EXCESS 0.9 mmol/L; VENOUS BLOOD HCO3 24.6 mmol/L (20-32); VENOUS BLOOD PCO2 36.4 mmHg (35-63); VENOUS BLOOD PH 7.45 (7.30-7.42)
[2018-01-01 18:25] LABS: HEMATOCRIT 39.9 % (36.0-47.0); HEMOGLOBIN 12.8 g/dL (12.0-15.5); MEAN CORPUSCULAR HEMOGLOBIN 26.2 pg (27.0-33.4); MEAN CORPUSCULAR VOLUME 82 fl (80-97); PLATELET COUNT 429 10^3/uL (150-450); RED BLOOD COUNT 4.88 10^6/uL (3.72-5.28); WHITE BLOOD COUNT 14.4 10^3/uL (4.0-10.5)
[2018-01-01] MEDS ORDERED: VANCOMYCIN HCL INJ 1000 MG VIAL IV ONE (18:25)
[2018-01-01] MEDS ORDERED: LEVOFLOXACIN 500 MG/D5W RTU 500 MG/100 ML RTUPB IV ONE (18:25)
[2018-01-01 18:30] LABS: ALANINE AMINOTRANSFERASE 27 U/L (9-52); ALKALINE PHOSPHATASE 60 U/L (38-126); ANION GAP 11 (5-19); ASPARTATE AMINO TRANSFERASE 19 U/L (14-36); BILIRUBIN,DIRECT 0.3 mg/dL (0.0-0.4); BILIRUBIN,TOTAL 0.5 mg/dL (0.2-1.3); BLOOD UREA NITROGEN 18 mg/dL (7-20); CALCIUM 9.2 mg/dL (8.4-10.2); CARBON DIOXIDE 28 mmol/L (22-30); CHLORIDE 102 mmol/L (98-107); GLUCOSE 77 mg/dL (75-110); POTASSIUM 3.1 mmol/L (3.6-5.0); SODIUM 141.2 mmol/L (137-145); TOTAL PROTEIN 5.7 g/dL (6.3-8.2)
--- NOTE | 2018-01-01 18:34 | RADIOLOGY REPORT (SQ) ---
EXAM DESCRIPTION: CHEST SINGLE VIEW COMPLETED DATE/TIME: 01/01/2018 6:23 pm REASON FOR STUDY: cough COMPARISON: 12/11/2017 EXAM PARAMETERS: NUMBER OF VIEWS: One view. TECHNIQUE: Single frontal radiographic view of the chest acquired. RADIATION DOSE: NA LIMITATIONS: None. FINDINGS: LUNGS AND PLEURA: Low lung volumes. Mild subsegmental atelectasis in the right base. MEDIASTINUM AND HILAR STRUCTURES: No masses. Contour normal. HEART AND VASCULAR STRUCTURES: Heart size is borderline. Mild pulmonary vascular congestion. These findings are accentuated by the low lung volumes. BONES: No acute findings. HARDWARE: None in the chest. OTHER: No other significant finding. IMPRESSION: Cardiomegaly with pulmonary vascular congestion but no codi CHF. Mild right subsegment al atelectasis. TECHNICAL DOCUMENTATION: JOB ID: [id number] [employer]- All Rights Reserved Reading location - IP/workstation name: [email or web address]
[2018-01-01 18:44] LABS: INTERNATIONAL RATION (INR) 1.18; PROTHROMBIN TIME 15.8 SEC (11.4-15.4)
[2018-01-01 18:47] LABS: ABSOLUTE MONOCYTES # (MANUAL) 0.7 10^3/uL (0.1-1.4); ABSOLUTE NEUTROPHILS# (MANUAL) 9.6 10^3/uL (1.7-8.2); BAND NEUTROPHILS % (MANUAL) 1 % (3-5); BASOPHILS % (MANUAL) 0 % (0-2); EOSINOPHILS % (MANUAL) 0 % (0-6); LYMPHOCYTES % (MANUAL) 22 % (13-45); METAMYELOCYTES % (MANUAL) 2 % (0); MONOCYTES % (MANUAL) 5 % (3-13); SEGMENTED NEUTROPHILS % (MAN) 61 % (42-78); TOTAL CELLS COUNTED 100
[2018-01-01 18:49] LABS: ANISOCYTOSIS 1+; OVALOCYTES SLIGHT; PLATELET COMMENT ADEQUATE; POIKILOCYTOSIS SLIGHT; POLYCHROMASIA SLIGHT
[2018-01-01 18:50] LABS: TOXIC GRANULATION SLIGHT
[2018-01-01 18:52] LABS: MYELOCYTES % (MANUAL) 2 % (0); PROMYELOCYTES % (MANUAL) 1 % (0)
[2018-01-01 19:18] LABS: APPEARANCE,URINE CLEAR; BILIRUBIN,URINE NEGATIVE (NEGATIVE); COLOR,URINE STRAW; GLUCOSE, URINE NEGATIVE (NEGATIVE); KETONES,URINE NEGATIVE (NEGATIVE); LEUKOCYTE ESTERASE,URINE NEGATIVE (NEGATIVE); NITRITE,URINE NEGATIVE (NEGATIVE); PROTEIN,URINE NEGATIVE (NEGATIVE); URINE SPECIFIC GRAVITY 1.005; UROBILINOGEN,URINE NEGATIVE mg/dL (<2.0)
--- NOTE | 2018-01-01 22:34 | RADIOLOGY REPORT (SQ) ---
EXAM DESCRIPTION: CT ABD/PELVIS NO ORAL OR IV COMPLETED DATE/TIME: 01/01/2018 9:42 pm REASON FOR STUDY: abd pain COMPARISON: 11/29/2017 TECHNIQUE: CT scan of the abdomen and pelvis performed without intravenous or oral contrast. Images reviewed with lung, soft tissue, and bone windows. Reconstructed coronal and sagittal MPR images revi ewed. All images stored on PACS. All CT scanners at this facility use dose modulation, iterative reconstruction, and/or weight based d osing when appropriate to reduce radiation dose to as low as reasonably achievable (ALARA). [facility]: Dose Right [facility]: CareDose [facility]: Dose Right [facility]: Teradose 4D [facility]: Smart [employer] RADIATION DOSE: CT Rad equipment meets quality standard of care and radiation dose reduction techniq ues were employed. CTDIvol: 9.4 mGy. DLP: 426 mGy-cm.mGy. LIMITATIONS: None. FINDINGS: LOWER CHEST: There is opacification in both lung bases, right more than left. Air broncho grams are seen in the right base. There is a prominent hiatal hernia. NON-CONTRASTED LIVER, SPLEEN, ADRENALS: Evaluation limited by lack of IV contrast. No identified sign ificant masses. PANCREAS: No masses. No peripancreatic inflammatory changes. GALLBLADDER: No identified stones by CT criteria. No inflammatory changes to suggest cholecystitis. RIGHT KIDNEY AND URETER: No suspicious masses. Assessment limited by lack of IV contrast. No signif icant calcifications. No hydronephrosis or hydroureter. LEFT KIDNEY AND URETER: No suspicious masses. Assessment limited by lack of IV contrast. No signifi cant calcifications. No hydronephrosis or hydroureter. AORTA AND RETROPERITONEUM: Atherosclerosis. BOWEL AND PERITONEAL CAVITY: No obvious masses or inflammatory changes. No free fluid. APPENDIX: Not identified. PELVIS, BLADDER, AND ABDOMINAL WALL:Uterus is absent. There is a catheter in the bladder so the blad aileen cannot be evaluated. BONES: Scoliosis and lower lumbar degenerative disc changes and spondylosis. OTHER: No other significant finding. IMPRESSION: 1. Subsegmental atelectasis in the left base with possible right lower lobe pneumonia v ersus greater degree of atelectasis. 2. No urinary pathology is seen. 3. Lumbar degenerative changes. COMMENT: Quality ID # [id number]: Final reports with documentation of one or more dose reduction techniques (e.g., Automated exposure control, adjustment of the mA and/or kV according to patient size, use of iterative reconstruction technique) TECHNICAL DOCUMENTATION: JOB ID: [id number] [employer] All Rights Reserved Reading location - IP/workstation name: [email or web address]
--- NOTE | 2018-01-01 22:49 | ER Document Report ---
ED General - General Chief Complaint: Altered Mental Status Stated Complaint: FATIGUE Time Seen by Provider: 01/01/18 18:24 Mode of Arrival: Stretcher Information source: Patient Notes: This is a 77-year-old female brought in by the care home because of decreased responsiveness today. Patient is noted to have fever. She does have a history of anemia and was given a transfusion yesterday. TRAVEL OUTSIDE OF THE [place] IN LAST 30 DAYS: No - HPI Onset: Just prior to arrival Onset/Duration: Gradual Quality of pain: No pain Severity: None Pain Level: Denies Associated symptoms: Chills, Fever, Shortness of breath Exacerbated by: Denies Relieved by: Denies Similar symptoms previously: Yes Recently seen / treated by doctor: Yes - Related Data Allergies/Adverse Reactions: aspirin [Aspirin] Allergy (Verified 11/25/17 15:43) colchicine Allergy (Verified 11/28/17 15:56) iodine Allergy (Verified 11/28/17 15:56) Penicillins Allergy (Verified 11/25/17 15:43) Hives shellfish derived Allergy (Verified 11/28/17 15:56) Past Medical History - General Information source: Patient, Transfer Record - Social History Smoking Status: Unknown if Ever Smoked Cigarette use (# per day): No Chew tobacco use (# tins/day): No Frequency of alcohol use: None Drug Abuse: None Lives with: [facility] Family History: CAD, Hyperlipidemia, Hypertension Patient has suicidal ideation: No Patient has homicidal ideation: No - Past Medical History Cardiac Medical History: Reports: Hx Atrial Fibrillation, Hx Congestive Heart Failure, Hx Coronary Artery Disease, Hx Hypercholesterolemia, Hx Hypertension Pulmonary Medical History: Reports: Hx Asthma, Hx Bronchitis, Hx Pneumonia Endocrine Medical History: Reports: Hx Diabetes Mellitus Type 2 Renal/ Medical History: Denies: Hx Peritoneal Dialysis GI Medical History: Reports: Hx Gastroesophageal Reflux Disease, Hx Hiatal Hernia Musculoskeltal Medical History: Reports Hx Arthritis Psychiatric Medical History: Reports: Hx Depression Past Surgical History: Reports: Hx Abdominal Surgery - colon resection, Hx Appendectomy Review of Systems - Review of Systems Constitutional: Chills, Fever EENT: No symptoms reported Cardiovascular: No symptoms reported Respiratory: See HPI Gastrointestinal: No symptoms reported Genitourinary: No symptoms reported Female Genitourinary: No symptoms reported Musculoskeletal: No symptoms reported Skin: See HPI Hematologic/Lymphatic: No symptoms reported Neurological/Psychological: No symptoms reported Physical Exam - Vital signs Vitals: Resp Pulse Ox 13 92 01/01/18 17:31 01/01/18 17:31 Notes: Physical exam: GENERAL: This is a 77-year-old female, appears chronically ill.She is febrile 103. HEAD: Atraumatic, normocephalic. EYES: Pupils equal round and reactive to light, extraocular movements intact, sclera anicteric, conjunctiva are normal. ENT: TMs normal, nares patent, oropharynx clear without exudates. Moist mucous membranes. NECK: Normal range of motion, supple without obvious mass or JVD. LUNGS: Breath sounds clear to auscultation bilaterally and equal. No wheezes rales or rhonchi. HEART: Regular rate and rhythm without murmurs, rubs or gallops. ABDOMEN: Soft, normoactive bowel sounds. No tenderness to palpation. No guarding, no rebound. No masses appreciated. Back: Patient does have sacral breakdown which is superficial at this point. It was dressed. Rectal exam shows brown stool, sent for study. EXTREMITIES: Normal range of motion, no pitting or edema. No clubbing or cyanosis. NEUROLOGICAL: Cranial nerves II through XII grossly intact. Normal speech, moving all extremities. PSYCH: Normal mood, normal affect. Skin: Patient does have sacral decubitus murmur noted above, she does have a superficial ulcer to the left lower extremity Course - Re-evaluation Re-evalutation: I did discuss the case with Dr. Palma of hematology Dr. Waters of pathology regarding the possibility of reaction due to yesterday's blood transfusion. The treatment will be supportive at this time. The other concern is that this may be sepsis from a possible pneumonia. Blood cultures and urine cultures were sent. Patient was started on IV antibiotics. 01/02/18 03:35 - Vital Signs Vital signs: Temp Pulse Resp BP Pulse Ox 99.1 F 23 H 106/54 L 96 01/02/18 01:01 01/02/18 01:01 01/02/18 01:01 01/02/18 01:01 - Laboratory Result Diagrams: 01/01/18 17:50 01/01/18 17:50 Laboratory results interpreted by me: 01/01/18 01/01/18 01/01/18 17:50 17:50 17:50 WBC 14.4 H MCH 26.2 L RDW 17.3 H Band Neutrophils % 1 L Metamyelocytes % 2 H Myelocytes % 2 H Promyelocytes % 1 H Abs Neuts (Manual) 9.6 H PT 15.8 H VBG pH Potassium 3.1 L Est GFR (Non-Af Amer) 57 L POC Glucose Lactate Dehydrogenase Total Protein 5.7 L Albumin 3.0 L Urine Blood 01/01/18 01/01/18 01/01/18 17:50 17:50 22:22 WBC MCH RDW Band Neutrophils % Metamyelocytes % Myelocytes % Promyelocytes % Abs Neuts (Manual) PT VBG pH 7.45 H Potassium Est GFR (Non-Af Amer) POC Glucose 69 L Lactate Dehydrogenase 797 H Total Protein Albumin Urine Blood 01/01/18 22:45 WBC MCH RDW Band Neutrophils % Metamyelocytes % Myelocytes % Promyelocytes % Abs Neuts (Manual) PT VBG pH Potassium Est GFR (Non-Af Amer) POC Glucose Lactate Dehydrogenase Total Protein Albumin Urine Blood SMALL H - Diagnostic Test Radiology reviewed: Image reviewed, Reports reviewed - CT of the abdomen shows right pulmonary infiltrate at the base Critical Care Note - Critical Care Note Total time excluding time spent on procedures (mins): 60 Discharge - Discharge Clinical Impression: Pneumonia Condition: Stable Disposition: ADMITTED INPATIENT Admitting Provider: Erin Unit Admitted: Telemetry
--- NOTE | 2018-01-01 22:57 | EKG REPORT ---
SEVERITY:- ABNORMAL ECG - SINUS RHYTHM RIGHT AXIS DEVIATION MINIMAL ST DEPRESSION, ANTEROLATERAL LEADS : Confirmed by: Juan Todd 01-Jan-2018 22:56:36
[2018-01-01 23:05] LABS: APPEARANCE,URINE SLIGHTLY-CLOUDY; BILIRUBIN,URINE NEGATIVE (NEGATIVE); COLOR,URINE STRAW; GLUCOSE, URINE NEGATIVE (NEGATIVE); KETONES,URINE NEGATIVE (NEGATIVE); LEUKOCYTE ESTERASE,URINE NEGATIVE (NEGATIVE); NITRITE,URINE NEGATIVE (NEGATIVE); PROTEIN,URINE NEGATIVE (NEGATIVE); URINE SPECIFIC GRAVITY 1.006; UROBILINOGEN,URINE NEGATIVE mg/dL (<2.0)
[2018-01-01] MEDS ORDERED: IPRATROPIUM/ALBUTEROL 0.5-2.5 MG/3 ML AMPUL NEB PRN (23:16)
[2018-01-01] MEDS ORDERED: DEXTROSE 50%-WATER 25 GM/50 ML DISP.SYRIN IV PRN ×2 (23:25)
[2018-01-01] MEDS ORDERED: GLUCAGON,HUMAN RECOMB 1 MG INJ IM PRN (23:25)
[2018-01-01] MEDS ORDERED: DEXTROSE 40% GEL 15 GM TUBE PO PRN ×2 (23:25)
[2018-01-02] MEDS ORDERED: HYDROCORTISONE SOD SUCCINATE INJ/PF 100 MG/2 ML SDV IV SCH
[2018-01-02 00:14] LABS: ARTERIAL BLOOD H2CO3 1.15 mmol/L (1.05-1.35); ARTERIAL BLOOD HCO3 25.9 mmol/L (20-26); ARTERIAL BLOOD O2 SATURATION 97.7 % (94-98); ARTERIAL BLOOD PCO2 38.1 mmHg (35-45); ARTERIAL BLOOD PH 7.45 (7.35-7.45); ARTERIAL BLOOD PO2 96.8 mmHg (80-100); ARTERIAL BLOOD TOTAL CO2 27.1 mmol/L (21-25)
[2018-01-02 00:30] LABS: ARTERIAL BLOOD FIO2 2L
[2018-01-02] MEDS ORDERED: AZTREONAM INJ 1 GM VIAL ONE (02:31)
[2018-01-02] MEDS ORDERED: GENTAMICIN SULFATE INJ 80 MG/2 ML VIAL ONE (02:31)
[2018-01-02] MEDS ORDERED: AZTREONAM 1 GM in DEXTROSE 5%-WATER 50 ML IV SCH ×3 (03:00)
[2018-01-02 05:30] LABS: HEMATOCRIT 36.1 % (36.0-47.0); HEMOGLOBIN 11.5 g/dL (12.0-15.5); MEAN CORPUSCULAR HEMOGLOBIN 26.1 pg (27.0-33.4); MEAN CORPUSCULAR HGB CONC 31.9 g/dL (32.0-36.0); MEAN CORPUSCULAR VOLUME 82 fl (80-97); PLATELET COUNT 303 10^3/uL (150-450); RED BLOOD COUNT 4.42 10^6/uL (3.72-5.28); RED CELL DISTRIBUTION WIDTH 17.2 % (11.5-14.0); WHITE BLOOD COUNT 12.2 10^3/uL (4.0-10.5)
[2018-01-02 05:47] LABS: ALANINE AMINOTRANSFERASE 29 U/L (9-52); ALBUMIN 2.5 g/dL (3.5-5.0); ALKALINE PHOSPHATASE 57 U/L (38-126); ANION GAP 10 (5-19); ASPARTATE AMINO TRANSFERASE 14 U/L (14-36); BILIRUBIN,DIRECT 0.4 mg/dL (0.0-0.4); BILIRUBIN,TOTAL 0.4 mg/dL (0.2-1.3); BLOOD UREA NITROGEN 18 mg/dL (7-20); CALCIUM 8.2 mg/dL (8.4-10.2); CARBON DIOXIDE 26 mmol/L (22-30); CHLORIDE 105 mmol/L (98-107); CREATINE KINASE 35 U/L (30-135); GLUCOSE 150 mg/dL (75-110); POTASSIUM 3.2 mmol/L (3.6-5.0); SODIUM 141.2 mmol/L (137-145); TOTAL PROTEIN 4.8 g/dL (6.3-8.2)
[2018-01-02 06:00] LABS: ABSOLUTE LYMPHOCYTES# (MANUAL) 1.3 10^3/uL (0.5-4.7); ABSOLUTE MONOCYTES # (MANUAL) 1.3 10^3/uL (0.1-1.4); ABSOLUTE NEUTROPHILS# (MANUAL) 9.5 10^3/uL (1.7-8.2); BAND NEUTROPHILS % (MANUAL) 2 % (3-5); BASOPHILS % (MANUAL) 0 % (0-2); EOSINOPHILS % (MANUAL) 0 % (0-6); LYMPHOCYTES % (MANUAL) 11 % (13-45); MONOCYTES % (MANUAL) 11 % (3-13); MYELOCYTES % (MANUAL) 3 % (0); NUCLEATED RED BLOOD CELLS 2 /100 WBC (0); SEGMENTED NEUTROPHILS % (MAN) 73 % (42-78); TOTAL CELLS COUNTED 100
[2018-01-02 06:01] LABS: PLATELET COMMENT ADEQUATE
[2018-01-02 06:03] LABS: ANISOCYTOSIS 1+; HYPOCHROMASIA SLIGHT; OVALOCYTES SLIGHT; POIKILOCYTOSIS 1+; POLYCHROMASIA 1+; TEAR DROP CELLS 1+
[2018-01-02 09:30] LABS: PATH REVIEW PATHOLOGIST REVIEWED
[2018-01-02] MEDS: INSULIN REG, HUMAN 100 UNIT/ML 3 ML VIAL (PYX) SUBCUT PRN (09:37)
[2018-01-02] MEDS: HYDROCORTISONE SOD SUCCINATE INJ/PF 100 MG/2 ML SDV IV SCH ×2 (09:37→17:09)
[2018-01-02] MEDS: POTASSIUM CHLORIDE 10 MEQ TABLET.SA PO SCH (09:38)
[2018-01-02] MEDS ORDERED: ACETAMINOPHEN 325 MG TABLET PO PRN (12:54)
[2018-01-02] MEDS: AZTREONAM 1 GM in DEXTROSE 5%-WATER 50 ML IV SCH ×2 (13:57→22:22)
[2018-01-02] MEDS: GABAPENTIN 400 MG CAPSULE PO SCH ×2 (13:59→22:22)
[2018-01-02] MEDS: IPRATROPIUM/ALBUTEROL 0.5-2.5 MG/3 ML AMPUL NEB SCH ×2 (14:06→20:39)
[2018-01-02] MEDS ORDERED: FERROUS SULFATE 325 MG TABLET PO ONE (15:00)
[2018-01-02] MEDS: DILTIAZEM HCL 240 MG CAPSULE.CR PO SCH (17:08)
[2018-01-02] MEDS: LANSOPRAZOLE 15 MG TAB.RAP.DR PO SCH (17:08)
[2018-01-02] MEDS: DRONEDARONE HYDROCHLORIDE 400 MG TABLET PO SCH (17:12)
[2018-01-02 17:35] LABS: APPEARANCE,URINE SLIGHTLY-CLOUDY; BILIRUBIN,URINE NEGATIVE (NEGATIVE); COLOR,URINE YELLOW; GLUCOSE, URINE NEGATIVE (NEGATIVE); KETONES,URINE NEGATIVE (NEGATIVE); LEUKOCYTE ESTERASE,URINE NEGATIVE (NEGATIVE); NITRITE,URINE NEGATIVE (NEGATIVE); PROTEIN,URINE NEGATIVE (NEGATIVE); URINE SPECIFIC GRAVITY 1.015; UROBILINOGEN,URINE NEGATIVE mg/dL (<2.0)
--- NOTE | 2018-01-02 17:56 | PDOC H&P ---
History of Present Illness Admission Date/PCP: 01/01/18 23:09 YANA ALVAREZ MD History of Present Illness: JESSY PARKER is a 77 year old female, she has multiple comorbid condition she was recently admitted in this hospital on November 28, 2017 she was discharged on 12/10/2017 to the residential for rehabilitation I saw her in the residential on rounds, she has a history of Yanick disease, paroxysmal atrial fibrillation when I saw her in the residential I started on Eliquis for stroke prophylaxis because of history of atrial fibrillation with a high libertad S2 score but on review of medication from the residential she apparently is not on the medication, she was also started on hydrocortisone replacement therapy because she has a history of Dickey disease but again on review of the medication she is still on prednisone 60 mg 2 times a day. She was transfused with packed red blood cells yesterday, she was transferred to the emergency room from the residential for evaluation of altered mental status, in the emergency room history taking was a challenge because she was stuporous, CT scan of the abdomen and pelvis with no contrast was obtained as well, there was opacification in both lung bases, right more than left with air bronchograms suggesting pneumonia there is also prominent hiatal hernia. There was leukocytosis which could be from the steroid that she is on. She has a history of COPD, the last time she was admitted she was diagnosed with MRSA pneumonia, sensitive to clindamycin she was treated with clindamycin she also have chronic kidney disease, cardiomyopathy. The ABG on FiO2 of 2 L, PO2 was 96, pH is 7.45 , PCO2 38.1, bicarbonate, 25.9 Past Medical History Cardiac Medical History: Reports: Atrial Fibrillation, Coronary Artery Disease, Hyperlipidema, Hypertension, Other - Chronic diastolic heart failure Pulmonary Medical History: Reports: Asthma, Bronchitis, Pneumonia Endocrine Medical History: Reports: Diabetes Mellitus Type 2 GI Medical History: Reports: Gastroesophageal Reflux Disease, Hiatal Hernia, Ulcerative Colitis Musculoskeltal Medical History: Reports: Arthritis Psychiatric Medical History: Reports: Depression Hematology: Reports: Anemia Infectious Medical History: Reports: Methicillin-Resistant Staph Aureus Past Surgical History Past Surgical History: Reports: Appendectomy, Other - History of right hemicolectomy, questionable history of ulcerative colitis. Social History Lives with: [facility] Smoking Status: Former Smoker Frequency of Alcohol Use: None Hx Recreational Drug Use: No Drugs: None Hx Prescription Drug Abuse: No Family History Family History: CAD, Hyperlipidemia, Hypertension Parental Family History Reviewed: Yes Children Family History Reviewed: Yes Sibling(s) Family History Reviewed.: Yes Medication/Allergy Home Medications: Acetaminophen [Tylenol 325 mg Tablet] 650 mg PO Q4HP PRN 01/02/18 Diltiazem HCl [Cardizem Cd 240 mg Capsule.cr] 240 mg PO Q12 01/02/18 Dronedarone Hydrochloride [Multaq 400 mg Tablet] 400 mg PO Q12 01/02/18 Epoetin Luis Alfredo [Procrit Inj 20,000 Unit/1 ml Vial (Renal)] 20,000 units SQ TU@ 2000 01/02/18 Ferrous Sulfate [Feosol 325 mg Tablet] 325 mg PO DAILY 01/02/18 Furosemide [Lasix 40 mg Tablet] 40 mg PO QAM 01/02/18 Gabapentin [Neurontin] 800 mg PO Q8 01/02/18 Insulin Aspart [Novolog Insulin (Aspart) 100 unit/mL] See Protocol SQ ACHS 01/02 Insulin NPH Hum/Reg Insulin Hm [Humulin 70-30 Vial] 15 units SQ QPM 01/02/18 Insulin NPH Hum/Reg Insulin Hm [Humulin 70-30 Vial] 30 units SQ QAM 01/02/18 Ipratropium/Albuterol Sulfate [Duoneb 3 ml Ampul] 1 vial NEB RTQ6 01/02/18 Lactobacillus Acidophilus [Acidophilus] 1 cap PO BID 01/02/18 Omeprazole 20 mg PO BID 01/02/18 Prednisone [Deltasone 20 mg Tablet] 20 mg PO BID 01/02/18 Sulfamethoxazole/Trimethoprim [Bactrim Ds Tablet] 1 tab PO MOWEFR@1000 01/02/18 Allergies/Adverse Reactions: aspirin [Aspirin] Allergy (Verified 11/25/17 15:43) colchicine Allergy (Verified 11/28/17 15:56) iodine Allergy (Verified 11/28/17 15:56) Penicillins Allergy (Verified 11/25/17 15:43) Hives shellfish derived Allergy (Verified 11/28/17 15:56) Review of Systems ROS unobtainable: Due to mental status Physical Exam Vital Signs: Temp Pulse Resp BP Pulse Ox 98.9 F 101 H 18 119/65 100 01/02/18 15:03 01/02/18 15:03 01/02/18 15:03 01/02/18 15:03 01/02/18 15:03 Intake & Output 01/01/18 01/02/18 01/03/18 06:59 06:59 06:59 Intake Total 150 150 Output Total 1250 200 Balance -1100 -50 Weight 51 kg General appearance: PRESENT: no acute distress Eye exam: PRESENT: PERRLA Respiratory exam: PRESENT: decreased breath sounds Cardiovascular exam: PRESENT: +S1, +S2 GI/Abdominal exam: PRESENT: soft Neurological exam: PRESENT: alert Results Laboratory Results: 01/02/18 04:10 01/02/18 04:10 01/01/18 01/02/18 01/02/18 23:55 04:10 04:10 WBC 12.2 H RBC 4.42 Hgb 11.5 L Hct 36.1 MCV 82 MCH 26.1 L MCHC 31.9 L RDW 17.2 H Plt Count 303 Seg Neutrophils % Not Reportable Lymphocytes % Not Reportable Monocytes % Not Reportable Eosinophils % Not Reportable Basophils % Not Reportable Absolute Neutrophils Not Reportable Absolute Lymphocytes Not Reportable Absolute Monocytes Not Reportable Absolute Eosinophils Not Reportable Absolute Basophils Not Reportable Carbonic Acid 1.15 HCO3/H2CO3 Ratio 22:1 ABG pH 7.45 ABG pCO2 38.1 ABG pO2 96.8 ABG HCO3 25.9 ABG O2 Saturation 97.7 ABG Base Excess 2.0 FiO2 2L Sodium 141.2 Potassium 3.2 L Chloride 105 Carbon Dioxide 26 Anion Gap 10 BUN 18 Creatinine 0.84 Est GFR ( Amer) > 60 Est GFR (Non-Af Amer) > 60 Glucose 150 H Calcium 8.2 L Total Bilirubin 0.4 AST 14 ALT 29 Alkaline Phosphatase 57 Total Protein 4.8 L Albumin 2.5 L 01/01/18 01/02/18 23:57 04:10 Creatine Kinase 35 Troponin I 0.020 Impressions: Chest X-Ray 01/01/18 00:00 IMPRESSION: Cardiomegaly with pulmonary vascular congestion but no codi CHF. Mild right subsegmental atelectasis. Abdomen/Pelvis CT 01/01/18 20:42 IMPRESSION: 1. Subsegmental atelectasis in the left base with possible right lower lobe pneumonia versus greater degree of atelectasis. 2. No urinary pathology is seen. 3. Lumbar degenerative changes. Assessment & Plan - Diagnosis (1) Bilateral pneumonia Qualifiers: Pneumonia type: due to unspecified organism Lung location: lower lobe of lung Qualified Code(s): J18.1 - Lobar pneumonia, unspecified organism Is this a current diagnosis for this admission?: Yes Plan: She has healthcare associated pneumonia, she will be treated with IV antibiotic to cover potential pathogens, including cefepime, gentamicin and aztreonam. She has a history of beta-lactam allergy, this combination will cover Pseudomonas and other potential pathogens (2) Addisons disease Is this a current diagnosis for this admission?: Yes Plan: She is chronically on prednisone, she will be treated with stress dose hydrocortisone (3) Paroxysmal atrial fibrillation Is this a current diagnosis for this admission?: Yes Plan: History of proximal atrial fibrillation, she has a high libertad S2 score, she needs anticoagulant, we start patient on Eliquis 5 mg p.o. twice daily (4) Metabolic encephalopathy Is this a current diagnosis for this admission?: Yes (5) Cardiomyopathy Qualifiers: Cardiomyopathy type: unspecified Qualified Code(s): I42.9 - Cardiomyopathy , unspecified Is this a current diagnosis for this admission?: Yes (6) Chronic obstructive pulmonary disease Qualifiers: COPD type: unspecified COPD Qualified Code(s): J44.9 - Chronic obstructive pulmonary disease, unspecified Is this a current diagnosis for this admission?: Yes
[2018-01-02] MEDS ORDERED: LEVOFLOXACIN 750 MG/D5W RTU 750 MG/150 ML RTUPB IV SCH (18:00)
[2018-01-02] MEDS: APIXABAN 5 MG TABLET PO SCH (19:19)
[2018-01-02] MEDS ORDERED: NORMAL SALINE IV SCH (22:00)
[2018-01-02] MEDS ORDERED: GENTAMICIN SULFATE IV SCH (22:00)
[2018-01-02] MEDS: METRONIDAZOLE 500 MG TABLET PO SCH (22:23)
[2018-01-03] MEDS: IPRATROPIUM/ALBUTEROL 0.5-2.5 MG/3 ML AMPUL NEB SCH ×4 (01:14→19:54)
[2018-01-03] MEDS ORDERED: GENTAMICIN SULFATE 140 MG in DEXTROSE 5%-WATER 100 ML IV SCH (02:00)
[2018-01-03] MEDS: HYDROCORTISONE SOD SUCCINATE INJ/PF 100 MG/2 ML SDV IV SCH ×3 (02:20→17:30)
[2018-01-03 05:02] LABS: ALANINE AMINOTRANSFERASE 23 U/L (9-52); ALBUMIN 2.7 g/dL (3.5-5.0); ALKALINE PHOSPHATASE 51 U/L (38-126); ANION GAP 8 (5-19); ASPARTATE AMINO TRANSFERASE 14 U/L (14-36); BILIRUBIN,DIRECT 0.3 mg/dL (0.0-0.4); BILIRUBIN,TOTAL 0.3 mg/dL (0.2-1.3); BLOOD UREA NITROGEN 26 mg/dL (7-20); CALCIUM 8.6 mg/dL (8.4-10.2); CARBON DIOXIDE 28 mmol/L (22-30); CHLORIDE 106 mmol/L (98-107); GLUCOSE 149 mg/dL (75-110); HEMATOCRIT 31.2 % (36.0-47.0); HEMOGLOBIN 10.2 g/dL (12.0-15.5); MEAN CORPUSCULAR HEMOGLOBIN 26.5 pg (27.0-33.4); MEAN CORPUSCULAR HGB CONC 32.7 g/dL (32.0-36.0); MEAN CORPUSCULAR VOLUME 81 fl (80-97); POTASSIUM 3.8 mmol/L (3.6-5.0); RED BLOOD COUNT 3.84 10^6/uL (3.72-5.28); SODIUM 141.8 mmol/L (137-145); TOTAL PROTEIN 5.4 g/dL (6.3-8.2); WHITE BLOOD COUNT 8.6 10^3/uL (4.0-10.5)
[2018-01-03] MEDS: AZTREONAM 1 GM in DEXTROSE 5%-WATER 50 ML IV SCH ×3 (05:19→22:28)
[2018-01-03] MEDS: METRONIDAZOLE 500 MG TABLET PO SCH ×3 (05:20→22:28)
[2018-01-03] MEDS: GABAPENTIN 400 MG CAPSULE PO SCH ×3 (05:20→22:28)
[2018-01-03] MEDS: LANSOPRAZOLE 15 MG TAB.RAP.DR PO SCH ×2 (05:21→17:27)
[2018-01-03] MEDS: DRONEDARONE HYDROCHLORIDE 400 MG TABLET PO SCH ×2 (05:21→17:28)
[2018-01-03] MEDS: DILTIAZEM HCL 240 MG CAPSULE.CR PO SCH ×2 (05:21→17:27)
[2018-01-03 05:25] LABS: ABSOLUTE LYMPHOCYTES# (MANUAL) 1.5 10^3/uL (0.5-4.7); ABSOLUTE MONOCYTES # (MANUAL) 0.5 10^3/uL (0.1-1.4); ABSOLUTE NEUTROPHILS# (MANUAL) 6.5 10^3/uL (1.7-8.2); BAND NEUTROPHILS % (MANUAL) 2 % (3-5); BASOPHILS % (MANUAL) 0 % (0-2); EOSINOPHILS % (MANUAL) 0 % (0-6); LYMPHOCYTES % (MANUAL) 18 % (13-45); MONOCYTES % (MANUAL) 6 % (3-13); SEGMENTED NEUTROPHILS % (MAN) 74 % (42-78); TOTAL CELLS COUNTED 100
[2018-01-03 05:26] LABS: TOXIC GRANULATION SLIGHT; TOXIC VACUOLATION PRESENT
[2018-01-03 05:27] LABS: ANISOCYTOSIS 1+; HYPOCHROMASIA SLIGHT; OVALOCYTES 1+; PLATELET CLUMPS PRESENT; PLATELET COMMENT ADEQUATE; PLATELET COUNT 318 10^3/uL (150-450); POIKILOCYTOSIS 1+; POLYCHROMASIA SLIGHT; TEAR DROP CELLS 1+
[2018-01-03] MEDS: INSULIN REG, HUMAN 100 UNIT/ML 3 ML VIAL (PYX) SUBCUT PRN ×3 (08:53→17:29)
[2018-01-03] MEDS: POTASSIUM CHLORIDE 10 MEQ TABLET.SA PO SCH (09:36)
[2018-01-03] MEDS: FERROUS SULFATE 325 MG TABLET PO SCH (09:37)
[2018-01-03] MEDS: APIXABAN 5 MG TABLET PO SCH ×2 (09:37→17:28)
[2018-01-03] MEDS: HUM INSULIN NPH/REG INSULIN HM 100 UNIT/1 ML 3 ML SUBCUT SCH (17:28)
--- NOTE | 2018-01-03 20:26 | PDOC PROGRESS REPORT ---
Subjective Progress Note for:: 01/03/18 Subjective:: Patient was seen by the bedside, she has no new complaint today.The stool was positive for clostridium difficile toxin, presently on p.o. Flagyl Reason For Visit: PNEUMONIA, MULTIPLE CO MORBID CONDITIONS Physical Exam Vital Signs: Temp Pulse Resp BP Pulse Ox 98.2 F 95 18 116/54 L 97 01/03/18 15:56 01/03/18 19:54 01/03/18 19:54 01/03/18 15:56 01/03/18 19:54 Intake & Output 01/02/18 01/03/18 01/04/18 06:59 06:59 06:59 Intake Total 150 900 400 Output Total 1250 1100 375 Balance -1100 -200 25 Weight 51 kg 52.4 kg General appearance: PRESENT: no acute distress Eye exam: PRESENT: PERRLA Respiratory exam: PRESENT: clear to auscultation koko Cardiovascular exam: PRESENT: +S1, +S2 GI/Abdominal exam: PRESENT: soft Neurological exam: PRESENT: alert Results Laboratory Results: 01/03/18 03:56 01/03/18 03:56 01/03/18 01/03/18 03:56 03:56 WBC 8.6 RBC 3.84 Hgb 10.2 L Hct 31.2 L MCV 81 MCH 26.5 L MCHC 32.7 RDW 17.0 H Plt Count 318 Seg Neutrophils % Not Reportable Lymphocytes % Not Reportable Monocytes % Not Reportable Eosinophils % Not Reportable Basophils % Not Reportable Absolute Neutrophils Not Reportable Absolute Lymphocytes Not Reportable Absolute Monocytes Not Reportable Absolute Eosinophils Not Reportable Absolute Basophils Not Reportable Sodium 141.8 Potassium 3.8 Chloride 106 Carbon Dioxide 28 Anion Gap 8 BUN 26 H Creatinine 1.00 Est GFR ( Amer) > 60 Est GFR (Non-Af Amer) 54 L Glucose 149 H Calcium 8.6 Total Bilirubin 0.3 AST 14 ALT 23 Alkaline Phosphatase 51 Total Protein 5.4 L Albumin 2.7 L 01/01/18 01/02/18 23:57 04:10 Creatine Kinase 35 Troponin I 0.020 Impressions: Chest X-Ray 01/01/18 00:00 IMPRESSION: Cardiomegaly with pulmonary vascular congestion but no codi CHF. Mild right subsegmental atelectasis. Abdomen/Pelvis CT 01/01/18 20:42 IMPRESSION: 1. Subsegmental atelectasis in the left base with possible right lower lobe pneumonia versus greater degree of atelectasis. 2. No urinary pathology is seen. 3. Lumbar degenerative changes. Assessment & Plan - Diagnosis (1) Bilateral pneumonia Qualifiers: Pneumonia type: due to unspecified organism Lung location: lower lobe of lung Qualified Code(s): J18.1 - Lobar pneumonia, unspecified organism Is this a current diagnosis for this admission?: Yes (2) Addisons disease Is this a current diagnosis for this admission?: Yes (3) Paroxysmal atrial fibrillation Is this a current diagnosis for this admission?: Yes (4) Metabolic encephalopathy Is this a current diagnosis for this admission?: Yes (5) Cardiomyopathy Qualifiers: Cardiomyopathy type: unspecified Qualified Code(s): I42.9 - Cardiomyopathy , unspecified Is this a current diagnosis for this admission?: Yes (6) Chronic obstructive pulmonary disease Qualifiers: COPD type: unspecified COPD Qualified Code(s): J44.9 - Chronic obstructive pulmonary disease, unspecified Is this a current diagnosis for this admission?: Yes - Plan Summary Plan Summary: Continue antibiotic for pneumonia and C. difficile colitis
[2018-01-04] MEDS: IPRATROPIUM/ALBUTEROL 0.5-2.5 MG/3 ML AMPUL NEB SCH ×3 (02:06→13:40)
[2018-01-04] MEDS: HYDROCORTISONE SOD SUCCINATE INJ/PF 100 MG/2 ML SDV IV SCH ×4 (02:23→18:19)
[2018-01-04] MEDS: LANSOPRAZOLE 15 MG TAB.RAP.DR PO SCH ×2 (05:45→15:16)
[2018-01-04] MEDS: METRONIDAZOLE 500 MG TABLET PO SCH ×3 (05:45→21:54)
[2018-01-04] MEDS: DILTIAZEM HCL 240 MG CAPSULE.CR PO SCH ×2 (05:46→18:20)
[2018-01-04] MEDS: AZTREONAM 1 GM in DEXTROSE 5%-WATER 50 ML IV SCH ×3 (05:46→21:55)
[2018-01-04] MEDS: GABAPENTIN 400 MG CAPSULE PO SCH ×3 (05:46→21:55)
[2018-01-04 05:50] LABS: ALANINE AMINOTRANSFERASE 31 U/L (9-52); ALBUMIN 2.7 g/dL (3.5-5.0); ALKALINE PHOSPHATASE 46 U/L (38-126); ANION GAP 10 (5-19); ASPARTATE AMINO TRANSFERASE 15 U/L (14-36); BILIRUBIN,DIRECT 0.1 mg/dL (0.0-0.4); BILIRUBIN,TOTAL 0.1 mg/dL (0.2-1.3); BLOOD UREA NITROGEN 36 mg/dL (7-20); CALCIUM 8.9 mg/dL (8.4-10.2); CARBON DIOXIDE 22 mmol/L (22-30); CHLORIDE 109 mmol/L (98-107); GLUCOSE 166 mg/dL (75-110); SODIUM 140.9 mmol/L (137-145)
[2018-01-04 05:51] LABS: HEMATOCRIT 30.1 % (36.0-47.0); MEAN CORPUSCULAR HEMOGLOBIN 27.4 pg (27.0-33.4); MEAN CORPUSCULAR HGB CONC 33.2 g/dL (32.0-36.0); MEAN CORPUSCULAR VOLUME 83 fl (80-97); PLATELET COUNT 283 10^3/uL (150-450); RED BLOOD COUNT 3.65 10^6/uL (3.72-5.28); RED CELL DISTRIBUTION WIDTH 17.2 % (11.5-14.0); WHITE BLOOD COUNT 8.3 10^3/uL (4.0-10.5)
[2018-01-04] MEDS ORDERED: GENTAMICIN SULFATE 100 MG in DEXTROSE 5%-WATER 100 ML IV SCH (06:00)
[2018-01-04 07:01] LABS: ABSOLUTE LYMPHOCYTES# (MANUAL) 0.7 10^3/uL (0.5-4.7); ABSOLUTE MONOCYTES # (MANUAL) 0.7 10^3/uL (0.1-1.4); BAND NEUTROPHILS % (MANUAL) 1 % (3-5); BASOPHILS % (MANUAL) 0 % (0-2); EOSINOPHILS % (MANUAL) 0 % (0-6); LYMPHOCYTES % (MANUAL) 8 % (13-45); METAMYELOCYTES % (MANUAL) 1 % (0); MONOCYTES % (MANUAL) 8 % (3-13); MYELOCYTES % (MANUAL) 1 % (0); SEGMENTED NEUTROPHILS % (MAN) 81 % (42-78); TOTAL CELLS COUNTED 100
[2018-01-04 07:04] LABS: ANISOCYTOSIS 1+
[2018-01-04 07:05] LABS: TEAR DROP CELLS 1+
[2018-01-04 07:06] LABS: OVALOCYTES 1+
[2018-01-04 07:08] LABS: PLATELET COMMENT ADEQUATE
[2018-01-04] MEDS: DRONEDARONE HYDROCHLORIDE 400 MG TABLET PO SCH ×2 (07:15→18:19)
[2018-01-04] MEDS: APIXABAN 5 MG TABLET PO SCH ×2 (09:32→18:20)
[2018-01-04] MEDS: FERROUS SULFATE 325 MG TABLET PO SCH (09:32)
[2018-01-04] MEDS: POTASSIUM CHLORIDE 10 MEQ TABLET.SA PO SCH (09:32)
[2018-01-04] MEDS: HUM INSULIN NPH/REG INSULIN HM 100 UNIT/1 ML 3 ML SUBCUT SCH ×2 (09:33→18:18)
--- NOTE | 2018-01-04 10:43 | RADIOLOGY REPORT (SQ) ---
EXAM DESCRIPTION: CHEST PA/LAT COMPLETED DATE/TIME: 01/04/2018 10:18 am REASON FOR STUDY: Pneumonia COMPARISON: CT chest 11/22/2017 AP chest 12/11/2017, 01/01/2018 EXAM PARAMETERS: NUMBER OF VIEWS: two views TECHNIQUE: Digital Frontal and Lateral radiographic views of the chest acquired. RADIATION DOSE: NA LIMITATIONS: none FINDINGS: LUNGS AND PLEURA: Minimal persistent right basilar atelectasis. Lungs are otherwise well inflated and clear. No pleural effusion. No pneumothorax. MEDIASTINUM AND HILAR STRUCTURES: Moderate to large retrocardiac hiatal hernia with air-fluid level HEART AND VASCULAR STRUCTURES: Heart normal size. No evidence for failure. BONES: No acute findings. Osteoporotic with chronic appearing mid thoracic compression deformities HARDWARE: None in the chest. OTHER: No other significant finding. IMPRESSION: Minimal right basilar atelectasis Moderate size retrocardiac hiatal hernia with air-fluid level TECHNICAL DOCUMENTATION: JOB ID: [id number] [employer]- All Rights Reserved Reading location - IP/workstation name: [email or web address]
--- NOTE | 2018-01-04 12:02 | PDOC PROGRESS REPORT ---
Subjective Progress Note for:: 01/04/18 Subjective:: Patient is currently doing fair Patient's denied any chest pain denied any shortness of the breath Patient's otherwise no other complaints Daughter is on the bedside Reason For Visit: PNEUMONIA, MULTIPLE CO MORBID CONDITIONS Physical Exam Vital Signs: Temp Pulse Resp BP Pulse Ox 97.7 F 87 18 94/55 L 99 01/04/18 11:43 01/04/18 11:43 01/04/18 11:43 01/04/18 11:43 01/04/18 11:43 Intake & Output 01/03/18 01/04/18 01/05/18 06:59 06:59 06:59 Intake Total 900 625 300 Output Total 1100 1075 300 Balance -200 -450 0 Weight 52.4 kg 54.3 kg General appearance: PRESENT: no acute distress, well-developed, well-nourished Head exam: PRESENT: atraumatic, normocephalic Eye exam: PRESENT: conjunctiva pink, EOMI, PERRLA. ABSENT: scleral icterus Ear exam: PRESENT: normal external ear exam Mouth exam: PRESENT: moist, tongue midline Neck exam: PRESENT: full ROM. ABSENT: carotid bruit, JVD, lymphadenopathy, thyromegaly Respiratory exam: PRESENT: clear to auscultation koko Cardiovascular exam: PRESENT: RRR. ABSENT: diastolic murmur, rubs, systolic murmur Pulses: PRESENT: normal dorsalis pedis pul, +2 pedal pulses bilateral Vascular exam: PRESENT: normal capillary refill GI/Abdominal exam: PRESENT: normal bowel sounds, soft. ABSENT: distended, guarding, mass, organolmegaly, rebound, tenderness Rectal exam: PRESENT: deferred Extremities exam: ABSENT: pedal edema Neurological exam: PRESENT: alert, awake, oriented to person, oriented to place , oriented to time, oriented to situation, CN II-XII grossly intact. ABSENT: motor sensory deficit Psychiatric exam: PRESENT: appropriate affect, normal mood. ABSENT: homicidal ideation, suicidal ideation Skin exam: PRESENT: dry, intact, warm. ABSENT: cyanosis, rash Results Laboratory Results: 01/04/18 04:43 01/04/18 04:43 01/04/18 01/04/18 04:43 04:43 WBC 8.3 RBC 3.65 L Hgb 10.0 L Hct 30.1 L MCV 83 MCH 27.4 MCHC 33.2 RDW 17.2 H Plt Count 283 Seg Neutrophils % Not Reportable Lymphocytes % Not Reportable Monocytes % Not Reportable Eosinophils % Not Reportable Basophils % Not Reportable Absolute Neutrophils Not Reportable Absolute Lymphocytes Not Reportable Absolute Monocytes Not Reportable Absolute Eosinophils Not Reportable Absolute Basophils Not Reportable Sodium 140.9 Potassium 4.0 Chloride 109 H Carbon Dioxide 22 Anion Gap 10 BUN 36 H Creatinine 1.01 Est GFR ( Amer) > 60 Est GFR (Non-Af Amer) 53 L Glucose 166 H Calcium 8.9 Total Bilirubin 0.1 L AST 15 ALT 31 Alkaline Phosphatase 46 Total Protein 5.0 L Albumin 2.7 L 01/01/18 01/02/18 23:57 04:10 Creatine Kinase 35 Troponin I 0.020 Impressions: Abdomen/Pelvis CT 01/01/18 20:42 IMPRESSION: 1. Subsegmental atelectasis in the left base with possible right lower lobe pneumonia versus greater degree of atelectasis. 2. No urinary pathology is seen. 3. Lumbar degenerative changes. Chest X-Ray 01/04/18 00:00 IMPRESSION: Minimal right basilar atelectasis Moderate size retrocardiac hiatal hernia with air-fluid level Assessment & Plan - Diagnosis (1) C. difficile colitis Is this a current diagnosis for this admission?: Yes Plan: Continues to Flagyl (2) Addisons disease Is this a current diagnosis for this admission?: Yes Plan: Reduce the hydrocortisone 50 mg IV every 8 (3) Bilateral pneumonia Qualifiers: Pneumonia type: due to unspecified organism Lung location: lower lobe of lung Qualified Code(s): J18.1 - Lobar pneumonia, unspecified organism Is this a current diagnosis for this admission?: Yes Plan: DC the gentamicin continues to other antibiotic (4) Cardiomyopathy Qualifiers: Cardiomyopathy type: unspecified Qualified Code(s): I42.9 - Cardiomyopathy , unspecified Is this a current diagnosis for this admission?: Yes Plan: Clear all stable (5) Chronic obstructive pulmonary disease Qualifiers: COPD type: unspecified COPD Qualified Code(s): J44.9 - Chronic obstructive pulmonary disease, unspecified Is this a current diagnosis for this admission?: Yes Plan: continue a nebulizer treatment (6) Paroxysmal atrial fibrillation Is this a current diagnosis for this admission?: Yes Plan: stable (7) Chronic kidney disease Qualifiers: Chronic kidney disease stage: stage 2 (mild) Qualified Code(s): N18.2 - Chronic kidney disease, stage 2 (mild) Is this a current diagnosis for this admission?: Yes Plan: stable - Time Time Spent with patient: 15-24 minutes Medications reviewed and adjusted accordingly: Yes Anticipated discharge: Home Within: Other - Inpatient Certification Medical Necessity: Need Close Monitoring Due to Risk of Patient Decompensation Post Hospital Care: D/C Local Delivery Driver Documentation - Plan Summary Plan Summary: Continues to current antibiotic
[2018-01-04] MEDS: INSULIN REG, HUMAN 100 UNIT/ML 3 ML VIAL (PYX) SUBCUT PRN (13:13)
[2018-01-04] MEDS: LEVOFLOXACIN 750 MG TABLET PO SCH (18:19)
[2018-01-04] MEDS ORDERED: METOPROLOL TARTRATE PF/INJ 5 MG/5 ML SDV IV PRN (19:29)
[2018-01-04] MEDS ORDERED: FUROSEMIDE INJ/PF 20 MG/2 ML SDV IV ONE (19:45)
[2018-01-04] MEDS: LEVALBUTEROL HCL NEB 1.25 MG/3 ML AMPUL NEB SCH (19:53)
--- NOTE | 2018-01-04 21:46 | EKG REPORT ---
SEVERITY:- ABNORMAL ECG - JUNCTIONAL TACHYCARDIA BORDERLINE IVCD WITH LAD BORDERLINE PROLONGED QT INTERVAL : Confirmed by: Juan Todd 04-Jan-2018 21:45:45
[2018-01-04] MEDS: RANOLAZINE 500 MG TAB.SR.12H PO SCH (21:54)
[2018-01-05] MEDS: LEVALBUTEROL HCL NEB 1.25 MG/3 ML AMPUL NEB SCH ×4 (01:36→19:45)
[2018-01-05] MEDS: HYDROCORTISONE SOD SUCCINATE INJ/PF 100 MG/2 ML SDV IV SCH ×3 (02:47→17:57)
[2018-01-05 05:09] LABS: HEMATOCRIT 30.6 % (36.0-47.0); HEMOGLOBIN 10.1 g/dL (12.0-15.5); MEAN CORPUSCULAR HEMOGLOBIN 27.1 pg (27.0-33.4); MEAN CORPUSCULAR HGB CONC 32.9 g/dL (32.0-36.0); MEAN CORPUSCULAR VOLUME 83 fl (80-97); PLATELET COUNT 300 10^3/uL (150-450); RED CELL DISTRIBUTION WIDTH 17.4 % (11.5-14.0); WHITE BLOOD COUNT 7.8 10^3/uL (4.0-10.5)
[2018-01-05 05:36] LABS: ANION GAP 10 (5-19); BLOOD UREA NITROGEN 34 mg/dL (7-20); CARBON DIOXIDE 25 mmol/L (22-30); CHLORIDE 110 mmol/L (98-107); GLUCOSE 174 mg/dL (75-110); POTASSIUM 3.8 mmol/L (3.6-5.0); SODIUM 145.2 mmol/L (137-145)
[2018-01-05 05:39] LABS: ABSOLUTE LYMPHOCYTES# (MANUAL) 0.9 10^3/uL (0.5-4.7); ABSOLUTE MONOCYTES # (MANUAL) 0.6 10^3/uL (0.1-1.4); ABSOLUTE NEUTROPHILS# (MANUAL) 6.3 10^3/uL (1.7-8.2); BAND NEUTROPHILS % (MANUAL) 1 % (3-5); BASOPHILS % (MANUAL) 0 % (0-2); EOSINOPHILS % (MANUAL) 0 % (0-6); LYMPHOCYTES % (MANUAL) 8 % (13-45); MONOCYTES % (MANUAL) 8 % (3-13); SEGMENTED NEUTROPHILS % (MAN) 80 % (42-78); TOTAL CELLS COUNTED 100
[2018-01-05 05:41] LABS: ANISOCYTOSIS 1+; BURR CELLS SLIGHT; POIKILOCYTOSIS 1+; TOXIC GRANULATION SLIGHT
[2018-01-05 05:42] LABS: PLATELET COMMENT ADEQUATE; ROULEAUX 1+; TEAR DROP CELLS SLIGHT
[2018-01-05] MEDS: AZTREONAM 1 GM in DEXTROSE 5%-WATER 50 ML IV SCH ×3 (05:57→21:55)
[2018-01-05] MEDS: METRONIDAZOLE 500 MG TABLET PO SCH ×3 (06:00→21:50)
[2018-01-05] MEDS: GABAPENTIN 400 MG CAPSULE PO SCH ×3 (06:00→21:51)
[2018-01-05] MEDS: DRONEDARONE HYDROCHLORIDE 400 MG TABLET PO SCH ×2 (06:00→17:58)
[2018-01-05] MEDS: LANSOPRAZOLE 15 MG TAB.RAP.DR PO SCH ×2 (06:00→16:56)
[2018-01-05] MEDS: DILTIAZEM HCL 240 MG CAPSULE.CR PO SCH ×2 (06:00→17:57)
--- NOTE | 2018-01-05 06:19 | PDOC PROGRESS REPORT ---
Subjective Progress Note for:: 01/05/18 Subjective:: Patient is currently doing fair Patient's denied any chest pain denied any shortness of the breath Patient's otherwise no other complaints Daughter is on the bedside Reason For Visit: PNEUMONIA, MULTIPLE CO MORBID CONDITIONS Physical Exam Vital Signs: Temp Pulse Resp BP Pulse Ox 98.2 F 84 16 127/58 H 96 01/05/18 04:32 01/05/18 04:32 01/05/18 04:32 01/05/18 04:32 01/05/18 04:32 Intake & Output 01/03/18 01/04/18 01/05/18 06:59 06:59 06:59 Intake Total 900 625 800 Output Total 1100 1075 500 Balance -200 -450 300 Weight 52.4 kg 54.3 kg 54.6 kg General appearance: PRESENT: no acute distress, well-developed, well-nourished Head exam: PRESENT: atraumatic, normocephalic Eye exam: PRESENT: conjunctiva pink, EOMI, PERRLA. ABSENT: scleral icterus Ear exam: PRESENT: normal external ear exam Mouth exam: PRESENT: moist, tongue midline Neck exam: PRESENT: full ROM. ABSENT: carotid bruit, JVD, lymphadenopathy, thyromegaly Respiratory exam: PRESENT: clear to auscultation koko Cardiovascular exam: PRESENT: RRR. ABSENT: diastolic murmur, rubs, systolic murmur Pulses: PRESENT: normal dorsalis pedis pul, +2 pedal pulses bilateral Vascular exam: PRESENT: normal capillary refill GI/Abdominal exam: PRESENT: normal bowel sounds, soft. ABSENT: distended, guarding, mass, organolmegaly, rebound, tenderness Rectal exam: PRESENT: deferred Extremities exam: ABSENT: pedal edema Neurological exam: PRESENT: alert, awake, oriented to person, oriented to place , oriented to time, oriented to situation, CN II-XII grossly intact. ABSENT: motor sensory deficit Psychiatric exam: PRESENT: appropriate affect, normal mood. ABSENT: homicidal ideation, suicidal ideation Skin exam: PRESENT: dry, intact, warm. ABSENT: cyanosis, rash Results Laboratory Results: 01/05/18 04:15 01/05/18 04:15 01/04/18 01/05/18 01/05/18 04:43 04:15 04:15 WBC 8.3 7.8 RBC 3.65 L 3.70 L Hgb 10.0 L 10.1 L Hct 30.1 L 30.6 L MCV 83 83 MCH 27.4 27.1 MCHC 33.2 32.9 RDW 17.2 H 17.4 H Plt Count 283 300 Seg Neutrophils % Not Reportable Lymphocytes % Not Reportable Monocytes % Not Reportable Eosinophils % Not Reportable Basophils % Not Reportable Absolute Neutrophils Not Reportable Absolute Lymphocytes Not Reportable Absolute Monocytes Not Reportable Absolute Eosinophils Not Reportable Absolute Basophils Not Reportable Sodium 145.2 H Potassium 3.8 Chloride 110 H Carbon Dioxide 25 Anion Gap 10 BUN 34 H Creatinine 0.88 Est GFR ( Amer) > 60 Est GFR (Non-Af Amer) > 60 Glucose 174 H Calcium 9.0 01/01/18 01/02/18 23:57 04:10 Creatine Kinase 35 Troponin I 0.020 Impressions: Abdomen/Pelvis CT 01/01/18 20:42 IMPRESSION: 1. Subsegmental atelectasis in the left base with possible right lower lobe pneumonia versus greater degree of atelectasis. 2. No urinary pathology is seen. 3. Lumbar degenerative changes. Chest X-Ray 01/04/18 00:00 IMPRESSION: Minimal right basilar atelectasis Moderate size retrocardiac hiatal hernia with air-fluid level Assessment & Plan - Diagnosis (1) C. difficile colitis Is this a current diagnosis for this admission?: Yes Plan: Continues to Flagyl (2) Addisons disease Is this a current diagnosis for this admission?: Yes Plan: Reduce the hydrocortisone 50 mg IV every 8 (3) Bilateral pneumonia Qualifiers: Pneumonia type: due to unspecified organism Lung location: lower lobe of lung Qualified Code(s): J18.1 - Lobar pneumonia, unspecified organism Is this a current diagnosis for this admission?: Yes Plan: DC the gentamicin continues to other antibiotic (4) Cardiomyopathy Qualifiers: Cardiomyopathy type: unspecified Qualified Code(s): I42.9 - Cardiomyopathy , unspecified Is this a current diagnosis for this admission?: Yes Plan: Clear all stable (5) Chronic obstructive pulmonary disease Qualifiers: COPD type: unspecified COPD Qualified Code(s): J44.9 - Chronic obstructive pulmonary disease, unspecified Is this a current diagnosis for this admission?: Yes Plan: continue a nebulizer treatment (6) Paroxysmal atrial fibrillation Is this a current diagnosis for this admission?: Yes Plan: stable (7) Chronic kidney disease Qualifiers: Chronic kidney disease stage: stage 2 (mild) Qualified Code(s): N18.2 - Chronic kidney disease, stage 2 (mild) Is this a current diagnosis for this admission?: Yes Plan: stable - Time Time Spent with patient: 15-24 minutes Medications reviewed and adjusted accordingly: Yes Anticipated discharge: Other Within: Other - Inpatient Certification Medical Necessity: Need Close Monitoring Due to Risk of Patient Decompensation Post Hospital Care: D/C [place] [employer] Documentation - Plan Summary Plan Summary: Continues to current medication
[2018-01-05] MEDS: FUROSEMIDE 40 MG TABLET PO SCH (09:14)
[2018-01-05] MEDS: APIXABAN 5 MG TABLET PO SCH ×2 (09:14→17:58)
[2018-01-05] MEDS: POTASSIUM CHLORIDE 10 MEQ TABLET.SA PO SCH (09:15)
[2018-01-05] MEDS: FERROUS SULFATE 325 MG TABLET PO SCH (09:15)
[2018-01-05] MEDS: RANOLAZINE 500 MG TAB.SR.12H PO SCH ×2 (09:20→21:50)
[2018-01-05] MEDS: HUM INSULIN NPH/REG INSULIN HM 100 UNIT/1 ML 3 ML SUBCUT SCH ×2 (09:20→18:00)
--- NOTE | 2018-01-05 11:29 | PDOC CONSULTATION ---
Consultation Consult Date: 01/04/18 Attending physician:: KEILY HELLER Consult reason:: Shortness of breath History of Present Illness Admission Date/PCP: 01/01/18 23:09 YANA ALVAREZ MD Patient complains of: Shortness of breath History of Present Illness: JESSY PARKER is a 77 year old female, she has multiple comorbid condition she was recently admitted in this hospital on November 28, 2017 she was [facility] on 12/10/[facility] I saw her in the shelter on rounds, she has a history of [place] disease, paroxysmal atrial fibrillation when I saw her in the shelter I started on Eliquis for stroke prophylaxis because of history of atrial fibrillation with a high libertad S2 score but on review of medication from the shelter she apparently is not on the medication, she was also started on hydrocortisone replacement therapy because she has a history of [place] disease but again on review of the medication she is still on prednisone 60 mg 2 times a day. She was transfused with packed red blood cells yesterday, she was transferred to the emergency room from the shelter for evaluation of altered mental status, in the emergency room history taking was a challenge because she was stuporous, CT scan of the abdomen and pelvis with no contrast was obtained as well, there was opacification in both lung bases, right more than left with air bronchograms suggesting pneumonia there is also prominent hiatal hernia. There was leukocytosis which could be from the steroid that she is on. She has a history of COPD, the last time she was admitted she was diagnosed with MRSA pneumonia, sensitive to clindamycin she was treated with clindamycin she also have chronic kidney disease, cardiomyopathy. The ABG on FiO2 of 2 L, PO2 was 96, pH is 7.45 , PCO2 38.1, bicarbonate, 25.9 This history obtained by Dr. Alvarez was reviewed and confirmed. Patient has been recuperating at the shelter after being discharged from our last hospitalization. I did see her during her last hospitalization during which she was noted to be in CHF, COPD exacerbation and paroxysmal atrial fibrillation. Last evening when Dr. Heller was rounded, patient had gone into atrial flutter fibrillation with rapid ventricular response. I was therefore asked to consult and help with management. Past Medical History Cardiac Medical History: Reports: Atrial Fibrillation, Congestive Heart Failure , Coronary Artery Disease, Hyperlipidema, Hypertension, Other - Chronic diastolic heart failure Pulmonary Medical History: Reports: Asthma, Bronchitis, Pneumonia Endocrine Medical History: Reports: Diabetes Mellitus Type 2 GI Medical History: Reports: Gastroesophageal Reflux Disease, Hiatal Hernia, Ulcerative Colitis Musculoskeltal Medical History: Reports: Arthritis Psychiatric Medical History: Reports: Depression Hematology: Reports: Anemia Infectious Medical History: Reports: Methicillin-Resistant Staph Aureus Past Surgical History Past Surgical History: Reports: Appendectomy, Other - History of right hemicolectomy, questionable history of ulcerative colitis. Social History Information Source: Patient Lives with: [facility] Smoking Status: Former Smoker Frequency of Alcohol Use: None Hx Recreational Drug Use: No Drugs: None Hx Prescription Drug Abuse: No - Advance Directive Resuscitation Status: Do Not Resuscitate Surrogate healthcare decision maker:: Patient's daughter is the surrogate decision-maker Family History Family History: CAD, Hyperlipidemia, Hypertension Parental Family History Reviewed: Yes Children Family History Reviewed: Yes Sibling(s) Family History Reviewed.: Yes Medication/Allergy Home Medications: Acetaminophen [Tylenol 325 mg Tablet] 650 mg PO Q4HP PRN 01/02/18 Diltiazem HCl [Cardizem Cd 240 mg Capsule.cr] 240 mg PO Q12 01/02/18 Dronedarone Hydrochloride [Multaq 400 mg Tablet] 400 mg PO Q12 01/02/18 Epoetin Luis Alfredo [Procrit Inj 20,000 Unit/1 ml Vial (Renal)] 20,000 units SQ TU@ 2000 01/02/18 Ferrous Sulfate [Feosol 325 mg Tablet] 325 mg PO DAILY 01/02/18 Furosemide [Lasix 40 mg Tablet] 40 mg PO QAM 01/02/18 Gabapentin [Neurontin] 800 mg PO Q8 01/02/18 Insulin Aspart [Novolog Insulin (Aspart) 100 unit/mL] See Protocol SQ ACHS 01/02 Insulin NPH Hum/Reg Insulin Hm [Humulin 70-30 Vial] 15 units SQ QPM 01/02/18 Insulin NPH Hum/Reg Insulin Hm [Humulin 70-30 Vial] 30 units SQ QAM 01/02/18 Ipratropium/Albuterol Sulfate [Duoneb 3 ml Ampul] 1 vial NEB RTQ6 01/02/18 Lactobacillus Acidophilus [Acidophilus] 1 cap PO BID 01/02/18 Omeprazole 20 mg PO BID 01/02/18 Prednisone [Deltasone 20 mg Tablet] 20 mg PO BID 01/02/18 Sulfamethoxazole/Trimethoprim [Bactrim Ds Tablet] 1 tab PO MOWEFR@1000 01/02/18 Allergies/Adverse Reactions: aspirin [Aspirin] Allergy (Verified 11/25/17 15:43) colchicine Allergy (Verified 11/28/17 15:56) iodine Allergy (Verified 11/28/17 15:56) Penicillins Allergy (Verified 11/25/17 15:43) Hives shellfish derived Allergy (Verified 11/28/17 15:56) Review of Systems Review of Systems: Please see history of present illness and past medical history as wall. Constitutional: No fever or chills reported. Fatigue and tiredness reported. Head : No recent chronic headaches, recent head injury. Eyes: No recent eye pain, diplopia, redness, discharge, acute visual changes. Ears: No recent chronic ear pain, acute hearing loss, ear discharge. Oral cavity: No recent ulcerations, bleeding, oral cavity discomfort. Neck: No recent acute neck pain reported. Hematologic: No recent easy bruising or bleeding or hematologic malignancy reported. History of needing blood transfusion. Lymphatic: No recent lymphatic malignancy, chronic lymphadenopathy reported yet Cardiovascular system review: See history of present illness. Respiratory system review: Describes chronic cough with intermittent wheezing. Denies hemoptysis, blood clots in the lungs reported. Significant shortness of breath on exertion Gastrointestinal system review: Negative for any recent acute or chronic abdominal pain, hematemesis, melena, recent change in bowel habits. History of GI bleed in the past. Genitourinary system review: No recent acute or chronic hematuria, flank pain, UTI etc. reported. Skin system review: Negative for any recent abnormal bruising, no rash, no pruritus reported. Neurologic: No prior history of strokes, mini strokes, seizure disorder. Psychologic: No history of major psychosis or major depression reported. Musculoskeletal: Minor aches and pains reported. No acute joint swelling reported. Endocrine: No recent polyuria, polydipsia, recent heat or cold intolerance. Physical Exam Vital Signs: Temp Pulse Resp BP Pulse Ox 97.8 F 83 18 118/52 L 100 01/04/18 16:03 01/04/18 16:03 01/04/18 16:03 01/04/18 16:03 01/04/18 16:03 Intake & Output 01/03/18 01/04/18 01/05/18 06:59 06:59 06:59 Intake Total 900 625 500 Output Total 1100 1075 500 Balance -200 -450 0 Weight 52.4 kg 54.3 kg Exam: GENERAL: well-nourished and in no acute distress. Alert and oriented x3 HEAD: Atraumatic, normocephalic. EYES: Pupils equal round and reactive to light, extraocular movements intact, sclera anicteric, conjunctiva are normal. ENT: TMs normal, nares patent, oropharynx clear without exudates. Moist mucous membranes. No oral ulcerations or bleeding gums noted NECK: supple without lymphadenopathy. Trachea is central. No cervical or axillary lymphadenopathy noted. Carotids are 2+, JVD 10 cm LUNGS: Respiration seems nonlabored, no significant accessory muscle action noted. Bilateral mild wheezes rales or rhonchi noted. No significant dullness noted on percussion. CHEST: Palpation of the chest wall shows no significant chest wall tenderness. No other significant abnormalities noted. 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 ABDOMEN: Soft, no significant tenderness appreciated, normoactive bowel sounds. No guarding, no rebound. No rigidity noted . No masses appreciated. EXTREMITIES: Pedal pulses are 1-2+, no calf tenderness noted. No clubbing or cyanosis.trace to 1+ pedal edema noted NEUROLOGICAL: Focused neurological exam showed no significant neurologic deficit. Normal speech, no focal weakness appreciated. PSYCH: Normal mood, normal affect. Judgment and insight within normal limits. SKIN: No significant ecchymosis, skin is noted to be warm. MUSCULOSKELETAL EXAM: No significant acute joint swelling noted. Results Laboratory Results: 01/04/18 04:43 01/04/18 04:43 01/04/18 01/04/18 04:43 04:43 WBC 8.3 RBC 3.65 L Hgb 10.0 L Hct 30.1 L MCV 83 MCH 27.4 MCHC 33.2 RDW 17.2 H Plt Count 283 Seg Neutrophils % Not Reportable Lymphocytes % Not Reportable Monocytes % Not Reportable Eosinophils % Not Reportable Basophils % Not Reportable Absolute Neutrophils Not Reportable Absolute Lymphocytes Not Reportable Absolute Monocytes Not Reportable Absolute Eosinophils Not Reportable Absolute Basophils Not Reportable Sodium 140.9 Potassium 4.0 Chloride 109 H Carbon Dioxide 22 Anion Gap 10 BUN 36 H Creatinine 1.01 Est GFR ( Amer) > 60 Est GFR (Non-Af Amer) 53 L Glucose 166 H Calcium 8.9 Total Bilirubin 0.1 L AST 15 ALT 31 Alkaline Phosphatase 46 Total Protein 5.0 L Albumin 2.7 L 01/01/18 01/02/18 23:57 04:10 Creatine Kinase 35 Troponin I 0.020 EKG Comments: Twelve-lead EKG shows narrow complex tachycardia, most likely junctional tachycardia. Impressions: Abdomen/Pelvis CT 01/01/18 20:42 IMPRESSION: 1. Subsegmental atelectasis in the left base with possible right lower lobe pneumonia versus greater degree of atelectasis. 2. No urinary pathology is seen. 3. Lumbar degenerative changes. Chest X-Ray 01/04/18 00:00 IMPRESSION: Minimal right basilar atelectasis Moderate size retrocardiac hiatal hernia with air-fluid level Assessment & Plan - Diagnosis (1) Junctional tachycardia Is this a current diagnosis for this admission?: Yes (2) Paroxysmal atrial fibrillation Is this a current diagnosis for this admission?: Yes (3) COPD (chronic obstructive pulmonary disease) Qualifiers: COPD type: unspecified COPD Qualified Code(s): J44.9 - Chronic obstructive pulmonary disease, unspecified Is this a current diagnosis for this admission?: Yes (4) Chronic kidney disease Qualifiers: Chronic kidney disease stage: stage 2 (mild) Qualified Code(s): N18.2 - Chronic kidney disease, stage 2 (mild) Is this a current diagnosis for this admission?: Yes (5) Congestive heart failure Qualifiers: Heart failure type: diastolic Heart failure chronicity: acute on chronic Qualified Code(s): I50.33 - Acute on chronic diastolic (congestive) heart failure Is this a current diagnosis for this admission?: Yes (6) Coronary artery disease Qualifiers: Coronary Disease-Associated Artery/Lesion type: unspecified vessel or lesion type Is this a current diagnosis for this admission?: Yes - Notes Notes: Junctional tachycardia: Noted on EKG. Agree with Cardizem at 240 mg p.o. twice daily. In the past patient responded to vagal maneuvers such as very strong coughing. Nurses informed about this. Paroxysmal atrial fibrillation with rapid ventricular response. Continue with her multaq therapy and also Cardizem therapy. Have added Ranexa since she was on this during last admission which seems to have prevented paroxysmal spells to some extent. Chronic anticoagulation decision is being left to the auto porter. This is because patient had GI bleed during last time. COPD: Continue with bronchodilator and steroid therapy as needed. Patient may be a candidate for Roflumilast. Chronic kidney disease: Currently stable. Congestive heart failure: Patient has acute on chronic congestive heart failure secondary to diastolic dysfunction. Believe that CHF precipitated by atrial flutter fibrillation and junctional tachycardia. Patient did receive IV Lasix last night which seems to have helped this condition. Continue baseline Lasix at 40 mg p.o. daily. Coronary artery disease: Symptomatically stable. Recommend statin therapy. If chronic anticoagulation is not used then would recommend Plavix therapy. - Time Time Spent: 30 to 50 Minutes - CODE STATUS : was discussed, patient remains DO NOT RESUSCITATE. Surrogate decision-maker unchanged. Multiple medical problems were addressed. More than 50% of the time spent coordinating care, discussing management plans with involved caregivers. Management plans discussed with involved personnels. Medical decision making was of moderate to high complexity, patient's has multiple comorbidities. Medications reviewed and adjusted accordingly: Yes
--- NOTE | 2018-01-05 11:31 | PDOC PROGRESS REPORT ---
Subjective Progress Note for:: 01/05/18 Subjective:: No recurrence of junctional tachycardia or atrial fibrillation since last night. Edema also improved Patient seems to be doing better with gradual improvement. Pt is denying any chest arm or neck discomfort. Patient denying any PND, orthopnea. Patient denied any sustained palpitations, dizziness, syncope, near syncope. Patient denying any fever chills. Patient denying any other significant discomfort. Patient is maintaining sinus rhythm. Review of systems: Rest review of systems negative. Medications: Medications have been reviewed. Reason For Visit: PNEUMONIA, MULTIPLE CO MORBID CONDITIONS Physical Exam Vital Signs: Temp Pulse Resp BP Pulse Ox 97.7 F 71 18 106/56 L 95 01/05/18 08:31 01/05/18 08:31 01/05/18 08:31 01/05/18 08:31 01/05/18 08:31 Intake & Output 01/04/18 01/05/18 01/06/18 06:59 06:59 06:59 Intake Total 625 800 Output Total 1075 1200 Balance -450 -400 Weight 54.3 kg 54.6 kg Exam: GENERAL: well-nourished and in no acute distress. Alert and oriented x3 HEAD: Atraumatic, normocephalic. EYES: Pupils equal round and reactive to light, extraocular movements intact, sclera anicteric, conjunctiva are normal. ENT: TMs normal, nares patent, oropharynx clear without exudates. Moist mucous membranes. No oral ulcerations or bleeding gums noted NECK: supple without lymphadenopathy. Trachea is central. No cervical or axillary lymphadenopathy noted. Carotids are 2+, JVD 8 cm LUNGS: Respiration seems nonlabored, no significant accessory muscle action noted. Bilateral mild scattered wheezes rales or rhonchi noted. No significant dullness noted on percussion. CHEST: Palpation of the chest wall shows no significant chest wall tenderness. No other significant abnormalities noted. 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 ABDOMEN: Soft, no significant tenderness appreciated, normoactive bowel sounds. No guarding, no rebound. No rigidity noted . No masses appreciated. EXTREMITIES: Pedal pulses are 1-2+, no calf tenderness noted. No clubbing or cyanosis.trace to 1+ pedal edema noted NEUROLOGICAL: Focused neurological exam showed no significant neurologic deficit. Normal speech, no focal weakness appreciated. PSYCH: Normal mood, normal affect. Judgment and insight within normal limits. SKIN: No significant ecchymosis, skin is noted to be warm. MUSCULOSKELETAL EXAM: No significant acute joint swelling noted. Results Laboratory Results: 01/05/18 04:15 01/05/18 04:15 01/05/18 01/05/18 04:15 04:15 WBC 7.8 RBC 3.70 L Hgb 10.1 L Hct 30.6 L MCV 83 MCH 27.1 MCHC 32.9 RDW 17.4 H Plt Count 300 Seg Neutrophils % Not Reportable Lymphocytes % Not Reportable Monocytes % Not Reportable Eosinophils % Not Reportable Basophils % Not Reportable Absolute Neutrophils Not Reportable Absolute Lymphocytes Not Reportable Absolute Monocytes Not Reportable Absolute Eosinophils Not Reportable Absolute Basophils Not Reportable Sodium 145.2 H Potassium 3.8 Chloride 110 H Carbon Dioxide 25 Anion Gap 10 BUN 34 H Creatinine 0.88 Est GFR ( Amer) > 60 Est GFR (Non-Af Amer) > 60 Glucose 174 H Calcium 9.0 01/01/18 01/02/18 23:57 04:10 Creatine Kinase 35 Troponin I 0.020 EKG Comments: Telemetry shows sinus rhythm. Impressions: Abdomen/Pelvis CT 01/01/18 20:42 IMPRESSION: 1. Subsegmental atelectasis in the left base with possible right lower lobe pneumonia versus greater degree of atelectasis. 2. No urinary pathology is seen. 3. Lumbar degenerative changes. Chest X-Ray 01/04/18 00:00 IMPRESSION: Minimal right basilar atelectasis Moderate size retrocardiac hiatal hernia with air-fluid level Assessment & Plan - Diagnosis (1) Junctional tachycardia Is this a current diagnosis for this admission?: Yes (2) Paroxysmal atrial fibrillation Is this a current diagnosis for this admission?: Yes (3) COPD (chronic obstructive pulmonary disease) Qualifiers: COPD type: unspecified COPD Qualified Code(s): J44.9 - Chronic obstructive pulmonary disease, unspecified Is this a current diagnosis for this admission?: Yes (4) Chronic kidney disease Qualifiers: Chronic kidney disease stage: stage 2 (mild) Qualified Code(s): N18.2 - Chronic kidney disease, stage 2 (mild) Is this a current diagnosis for this admission?: Yes (5) Congestive heart failure Qualifiers: Heart failure type: diastolic Heart failure chronicity: acute on chronic Qualified Code(s): I50.33 - Acute on chronic diastolic (congestive) heart failure Is this a current diagnosis for this admission?: Yes (6) Coronary artery disease Qualifiers: Coronary Disease-Associated Artery/Lesion type: unspecified vessel or lesion type Is this a current diagnosis for this admission?: Yes - Notes Notes: Junctional tachycardia: Noted on EKG yesterday. Agree with Cardizem at 240 mg p.o. twice daily. In the past patient responded to vagal maneuvers such as very strong coughing. Nurses informed about this. No recurrences so far. Ordered an EKG for today. Paroxysmal atrial fibrillation with rapid ventricular response. Medical regimen has been optimized. Maintain electrolytes within normal limits including magnesium level. Continue with her multaq therapy and also Cardizem therapy. Have added Ranexa since she was on this during last admission which seems to have prevented paroxysmal spells to some extent. Chronic anticoagulation decision is being left to the theatre professor. This is because patient had GI bleed during last time. COPD: Continue with bronchodilator and steroid therapy as needed. Patient may be a candidate for Roflumilast. Chronic kidney disease: Currently stable. Congestive heart failure: Patient has acute on chronic congestive heart failure secondary to diastolic dysfunction. Believe that CHF precipitated by atrial flutter fibrillation and junctional tachycardia. Patient did receive IV Lasix last night which seems to have helped this condition. Continue baseline Lasix at 40 mg p.o. daily. Coronary artery disease: Symptomatically stable. Recommend statin therapy. If chronic anticoagulation is not used then would recommend Plavix therapy. - Time Time with patient: 15-25 minutes - CODE STATUS : was discussed, patient remains DO NOT RESUSCITATE. Surrogate decision-maker unchanged. Multiple medical problems were addressed. More than 50% of the time spent coordinating care, discussing management plans with involved caregivers. Management plans discussed with involved personnels. Medical decision making was of moderate to high complexity, patient's has multiple comorbidities.
--- NOTE | 2018-01-05 16:16 | EKG REPORT ---
SEVERITY:- BORDERLINE ECG - SINUS RHYTHM ATRIAL PREMATURE COMPLEX PROBABLE LEFT ATRIAL ABNORMALITY : Confirmed by: Juan Todd 05-Jan-2018 16:16:29
[2018-01-05] MEDS: NYSTATIN TOPICAL POWDER 15 GM TP SCH (17:59)
[2018-01-06] MEDS: LEVALBUTEROL HCL NEB 1.25 MG/3 ML AMPUL NEB SCH ×4 (02:20→20:01)
[2018-01-06] MEDS: HYDROCORTISONE SOD SUCCINATE INJ/PF 100 MG/2 ML SDV IV SCH ×3 (03:14→17:22)
[2018-01-06] MEDS: GABAPENTIN 400 MG CAPSULE PO SCH ×3 (05:39→22:37)
[2018-01-06] MEDS: DILTIAZEM HCL 240 MG CAPSULE.CR PO SCH ×2 (05:40→17:23)
[2018-01-06] MEDS: METRONIDAZOLE 500 MG TABLET PO SCH ×3 (05:41→22:37)
[2018-01-06] MEDS: DRONEDARONE HYDROCHLORIDE 400 MG TABLET PO SCH ×2 (05:41→17:22)
[2018-01-06] MEDS: AZTREONAM 1 GM in DEXTROSE 5%-WATER 50 ML IV SCH ×2 (05:42→13:28)
[2018-01-06] MEDS: LANSOPRAZOLE 15 MG TAB.RAP.DR PO SCH ×2 (05:47→15:21)
[2018-01-06 06:01] LABS: ANION GAP 7 (5-19); BLOOD UREA NITROGEN 36 mg/dL (7-20); CALCIUM 9.1 mg/dL (8.4-10.2); CARBON DIOXIDE 23 mmol/L (22-30); CHLORIDE 113 mmol/L (98-107); GLUCOSE 115 mg/dL (75-110); POTASSIUM 3.4 mmol/L (3.6-5.0); SODIUM 142.7 mmol/L (137-145)
[2018-01-06] MEDS: HUM INSULIN NPH/REG INSULIN HM 100 UNIT/1 ML 3 ML SUBCUT SCH ×2 (08:26→17:22)
[2018-01-06] MEDS: INSULIN REG, HUMAN 100 UNIT/ML 3 ML VIAL (PYX) SUBCUT PRN (08:27)
[2018-01-06] MEDS: POTASSIUM CHLORIDE 10 MEQ TABLET.SA PO SCH (09:42)
[2018-01-06] MEDS: APIXABAN 5 MG TABLET PO SCH ×2 (09:42→17:22)
[2018-01-06] MEDS: FUROSEMIDE 40 MG TABLET PO SCH (09:42)
[2018-01-06] MEDS: FERROUS SULFATE 325 MG TABLET PO SCH (09:42)
[2018-01-06] MEDS: RANOLAZINE 500 MG TAB.SR.12H PO SCH ×2 (09:42→22:38)
[2018-01-06] MEDS: NYSTATIN TOPICAL POWDER 15 GM TP SCH ×2 (13:29→17:23)
--- NOTE | 2018-01-06 13:59 | PDOC PROGRESS REPORT ---
Subjective Progress Note for:: 01/06/18 Subjective:: Patient is currently doing much better Patient heart rate is all stable Patient's denied any chest pain denied any shortness of the breath Reason For Visit: PNEUMONIA, MULTIPLE CO MORBID CONDITIONS Physical Exam Vital Signs: Temp Pulse Resp BP Pulse Ox 97.4 F 77 18 133/50 H 95 01/06/18 07:16 01/06/18 09:24 01/06/18 09:24 01/06/18 07:16 01/06/18 09:24 Intake & Output 01/05/18 01/06/18 01/07/18 06:59 06:59 06:59 Intake Total 800 825 Output Total 1200 1250 Balance -400 -425 Weight 54.6 kg 54.2 kg General appearance: PRESENT: no acute distress, well-developed, well-nourished Head exam: PRESENT: atraumatic, normocephalic Eye exam: PRESENT: conjunctiva pink, EOMI, PERRLA. ABSENT: scleral icterus Ear exam: PRESENT: normal external ear exam Mouth exam: PRESENT: moist, tongue midline Neck exam: PRESENT: full ROM. ABSENT: carotid bruit, JVD, lymphadenopathy, thyromegaly Respiratory exam: PRESENT: clear to auscultation koko Cardiovascular exam: PRESENT: RRR. ABSENT: diastolic murmur, rubs, systolic murmur Pulses: PRESENT: normal dorsalis pedis pul, +2 pedal pulses bilateral Vascular exam: PRESENT: normal capillary refill GI/Abdominal exam: PRESENT: normal bowel sounds, soft. ABSENT: distended, guarding, mass, organolmegaly, rebound, tenderness Rectal exam: PRESENT: deferred Extremities exam: ABSENT: pedal edema Musculoskeletal exam: PRESENT: ambulatory Neurological exam: PRESENT: alert, awake, oriented to person, oriented to place , oriented to time, oriented to situation, CN II-XII grossly intact. ABSENT: motor sensory deficit Psychiatric exam: PRESENT: appropriate affect, normal mood. ABSENT: homicidal ideation, suicidal ideation Skin exam: PRESENT: dry, intact, warm. ABSENT: cyanosis, rash Results Laboratory Results: 01/05/18 04:15 01/06/18 04:22 01/06/18 04:22 Sodium 142.7 Potassium 3.4 L Chloride 113 H Carbon Dioxide 23 Anion Gap 7 BUN 36 H Creatinine 0.85 Est GFR ( Amer) > 60 Est GFR (Non-Af Amer) > 60 Glucose 115 H Calcium 9.1 01/01/18 01/02/18 23:57 04:10 Creatine Kinase 35 Troponin I 0.020 Impressions: Abdomen/Pelvis CT 01/01/18 20:42 IMPRESSION: 1. Subsegmental atelectasis in the left base with possible right lower lobe pneumonia versus greater degree of atelectasis. 2. No urinary pathology is seen. 3. Lumbar degenerative changes. Chest X-Ray 01/04/18 00:00 IMPRESSION: Minimal right basilar atelectasis Moderate size retrocardiac hiatal hernia with air-fluid level Assessment & Plan - Diagnosis (1) C. difficile colitis Is this a current diagnosis for this admission?: Yes Plan: We will recheck the C. difficile (2) Addisons disease Is this a current diagnosis for this admission?: Yes Plan: Reduce IV hydrocortisone and switch to the p.o. steroid (3) Bilateral pneumonia Qualifiers: Pneumonia type: due to unspecified organism Lung location: lower lobe of lung Qualified Code(s): J18.1 - Lobar pneumonia, unspecified organism Is this a current diagnosis for this admission?: Yes Plan: Continues to current antibiotic (4) Cardiomyopathy Qualifiers: Cardiomyopathy type: unspecified Qualified Code(s): I42.9 - Cardiomyopathy , unspecified Is this a current diagnosis for this admission?: Yes Plan: Clear all stable (5) Chronic obstructive pulmonary disease Qualifiers: COPD type: unspecified COPD Qualified Code(s): J44.9 - Chronic obstructive pulmonary disease, unspecified Is this a current diagnosis for this admission?: Yes Plan: continue a nebulizer treatment (6) Paroxysmal atrial fibrillation Is this a current diagnosis for this admission?: Yes Plan: stable (7) Chronic kidney disease Qualifiers: Chronic kidney disease stage: stage 2 (mild) Qualified Code(s): N18.2 - Chronic kidney disease, stage 2 (mild) Is this a current diagnosis for this admission?: Yes Plan: stable - Time Time Spent with patient: 15-24 minutes Medications reviewed and adjusted accordingly: Yes Anticipated discharge: Other Within: Other - Inpatient Certification Medical Necessity: Need Close Monitoring Due to Risk of Patient Decompensation, Need for IV Antibiotics 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
[2018-01-06] MEDS ORDERED: POTASSIUM CHLORIDE 10 MEQ TABLET.SA PO ONE (15:00)
--- NOTE | 2018-01-06 17:11 | PDOC PROGRESS REPORT ---
Subjective Progress Note for:: 01/06/18 Subjective:: She was seen by the bedside, she came from [facility] but she wants to go home on discharge. She was seen by PT today Reason For Visit: PNEUMONIA, MULTIPLE CO MORBID CONDITIONS Physical Exam Vital Signs: Temp Pulse Resp BP Pulse Ox 98.1 F 80 18 123/54 L 93 01/06/18 15:46 01/06/18 15:46 01/06/18 15:46 01/06/18 15:46 01/06/18 15:46 Intake & Output 01/05/18 01/06/18 01/07/18 06:59 06:59 06:59 Intake Total 800 825 300 Output Total 1200 1250 200 Balance -400 -425 100 Weight 54.6 kg 54.2 kg General appearance: PRESENT: no acute distress Eye exam: PRESENT: PERRLA Respiratory exam: PRESENT: clear to auscultation koko Cardiovascular exam: PRESENT: +S1, +S2 GI/Abdominal exam: PRESENT: soft Neurological exam: PRESENT: alert Results Laboratory Results: 01/05/18 04:15 01/06/18 04:22 01/06/18 04:22 Sodium 142.7 Potassium 3.4 L Chloride 113 H Carbon Dioxide 23 Anion Gap 7 BUN 36 H Creatinine 0.85 Est GFR ( Amer) > 60 Est GFR (Non-Af Amer) > 60 Glucose 115 H Calcium 9.1 01/01/18 01/02/18 23:57 04:10 Creatine Kinase 35 Troponin I 0.020 Impressions: Abdomen/Pelvis CT 01/01/18 20:42 IMPRESSION: 1. Subsegmental atelectasis in the left base with possible right lower lobe pneumonia versus greater degree of atelectasis. 2. No urinary pathology is seen. 3. Lumbar degenerative changes. Chest X-Ray 01/04/18 00:00 IMPRESSION: Minimal right basilar atelectasis Moderate size retrocardiac hiatal hernia with air-fluid level Assessment & Plan - Diagnosis (1) Bilateral pneumonia Qualifiers: Pneumonia type: due to unspecified organism Lung location: lower lobe of lung Qualified Code(s): J18.1 - Lobar pneumonia, unspecified organism Is this a current diagnosis for this admission?: Yes (2) Addisons disease Is this a current diagnosis for this admission?: Yes (3) Paroxysmal atrial fibrillation Is this a current diagnosis for this admission?: Yes (4) Metabolic encephalopathy Is this a current diagnosis for this admission?: Yes (5) Cardiomyopathy Qualifiers: Cardiomyopathy type: unspecified Qualified Code(s): I42.9 - Cardiomyopathy , unspecified Is this a current diagnosis for this admission?: Yes (6) Chronic obstructive pulmonary disease Qualifiers: COPD type: unspecified COPD Qualified Code(s): J44.9 - Chronic obstructive pulmonary disease, unspecified Is this a current diagnosis for this admission?: Yes
[2018-01-06] MEDS: LEVOFLOXACIN 750 MG TABLET PO SCH (17:22)
[2018-01-06 18:07] LABS: ALANINE AMINOTRANSFERASE 28 U/L (9-52); ALBUMIN 3.1 g/dL (3.5-5.0); ALKALINE PHOSPHATASE 55 U/L (38-126); ANION GAP 9 (5-19); ASPARTATE AMINO TRANSFERASE 31 U/L (14-36); BILIRUBIN,DIRECT 0.3 mg/dL (0.0-0.4); BILIRUBIN,TOTAL 0.3 mg/dL (0.2-1.3); BLOOD UREA NITROGEN 35 mg/dL (7-20); CALCIUM 9.4 mg/dL (8.4-10.2); CARBON DIOXIDE 23 mmol/L (22-30); CHLORIDE 113 mmol/L (98-107); GLUCOSE 116 mg/dL (75-110); POTASSIUM 3.8 mmol/L (3.6-5.0); SODIUM 144.5 mmol/L (137-145); TOTAL PROTEIN 5.5 g/dL (6.3-8.2)
[2018-01-07] MEDS: LEVALBUTEROL HCL NEB 1.25 MG/3 ML AMPUL NEB SCH ×3 (02:11→13:34)
[2018-01-07] MEDS: HYDROCORTISONE SOD SUCCINATE INJ/PF 100 MG/2 ML SDV IV SCH ×2 (02:30→09:33)
[2018-01-07] MEDS: GABAPENTIN 400 MG CAPSULE PO SCH ×2 (05:22→13:27)
[2018-01-07] MEDS: DILTIAZEM HCL 240 MG CAPSULE.CR PO SCH ×2 (05:22→17:53)
[2018-01-07] MEDS: DRONEDARONE HYDROCHLORIDE 400 MG TABLET PO SCH ×2 (05:23→17:53)
[2018-01-07] MEDS: METRONIDAZOLE 500 MG TABLET PO SCH ×2 (05:23→13:27)
[2018-01-07] MEDS: LANSOPRAZOLE 15 MG TAB.RAP.DR PO SCH ×2 (05:23→16:07)
[2018-01-07 06:46] LABS: HEMATOCRIT 32.3 % (36.0-47.0); HEMOGLOBIN 10.5 g/dL (12.0-15.5); MEAN CORPUSCULAR HEMOGLOBIN 26.7 pg (27.0-33.4); MEAN CORPUSCULAR HGB CONC 32.4 g/dL (32.0-36.0); MEAN CORPUSCULAR VOLUME 83 fl (80-97); PLATELET COUNT 285 10^3/uL (150-450); RED BLOOD COUNT 3.92 10^6/uL (3.72-5.28); RED CELL DISTRIBUTION WIDTH 18.1 % (11.5-14.0); WHITE BLOOD COUNT 11.1 10^3/uL (4.0-10.5)
[2018-01-07 07:10] LABS: ANION GAP 8 (5-19); BLOOD UREA NITROGEN 31 mg/dL (7-20); CALCIUM 9.1 mg/dL (8.4-10.2); CARBON DIOXIDE 23 mmol/L (22-30); CHLORIDE 116 mmol/L (98-107); GLUCOSE 75 mg/dL (75-110); POTASSIUM 3.5 mmol/L (3.6-5.0); SODIUM 147.1 mmol/L (137-145)
[2018-01-07 07:25] LABS: ABSOLUTE LYMPHOCYTES# (MANUAL) 2.1 10^3/uL (0.5-4.7); ABSOLUTE MONOCYTES # (MANUAL) 0.8 10^3/uL (0.1-1.4); ABSOLUTE NEUTROPHILS# (MANUAL) 8.2 10^3/uL (1.7-8.2); BAND NEUTROPHILS % (MANUAL) 2 % (3-5); BASOPHILS % (MANUAL) 0 % (0-2); EOSINOPHILS % (MANUAL) 0 % (0-6); LYMPHOCYTES % (MANUAL) 19 % (13-45); METAMYELOCYTES % (MANUAL) 1 % (0); MONOCYTES % (MANUAL) 7 % (3-13); SEGMENTED NEUTROPHILS % (MAN) 71 % (42-78); TOTAL CELLS COUNTED 100
[2018-01-07 07:27] LABS: ANISOCYTOSIS 1+; TOXIC GRANULATION 1+
[2018-01-07 07:28] LABS: OVALOCYTES SLIGHT; PLATELET COMMENT ADEQUATE; POIKILOCYTOSIS SLIGHT
[2018-01-07] MEDS: HUM INSULIN NPH/REG INSULIN HM 100 UNIT/1 ML 3 ML SUBCUT SCH ×2 (08:39→17:53)
[2018-01-07] MEDS: POTASSIUM CHLORIDE 10 MEQ TABLET.SA PO SCH (09:33)
[2018-01-07] MEDS: APIXABAN 5 MG TABLET PO SCH ×2 (09:33→17:53)
[2018-01-07] MEDS: FERROUS SULFATE 325 MG TABLET PO SCH (09:33)
[2018-01-07] MEDS: FUROSEMIDE 40 MG TABLET PO SCH (09:33)
[2018-01-07] MEDS: RANOLAZINE 500 MG TAB.SR.12H PO SCH (09:34)
[2018-01-07] MEDS: NYSTATIN TOPICAL POWDER 15 GM TP SCH ×2 (09:34→17:53)
--- NOTE | 2018-01-07 13:15 | PDOC PROGRESS REPORT ---
Subjective Progress Note for:: 01/06/18 Subjective:: No recurrence of junctional tachycardia or atrial fibrillation. Edema also improved Patient seems to be doing better with gradual improvement. Pt is denying any chest arm or neck discomfort. Patient denying any PND, orthopnea. Patient denied any sustained palpitations, dizziness, syncope, near syncope. Patient denying any fever chills. Patient denying any other significant discomfort. Patient is maintaining sinus rhythm. Review of systems: Rest review of systems negative. Medications: Medications have been reviewed. Reason For Visit: PNEUMONIA, MULTIPLE CO MORBID CONDITIONS Physical Exam Vital Signs: Temp Pulse Resp BP Pulse Ox 98.1 F 80 18 123/54 L 93 01/06/18 15:46 01/06/18 15:46 01/06/18 15:46 01/06/18 15:46 01/06/18 15:46 Intake & Output 01/05/18 01/06/18 01/07/18 06:59 06:59 06:59 Intake Total 800 825 650 Output Total 1200 1250 600 Balance -400 -425 50 Weight 54.6 kg 54.2 kg Exam: GENERAL: well-nourished and in no acute distress. Alert and oriented x3 HEAD: Atraumatic, normocephalic. EYES: Pupils equal round and reactive to light, extraocular movements intact, sclera anicteric, conjunctiva are normal. ENT: TMs normal, nares patent, oropharynx clear without exudates. Moist mucous membranes. No oral ulcerations or bleeding gums noted NECK: supple without lymphadenopathy. Trachea is central. No cervical or axillary lymphadenopathy noted. Carotids are 2+, JVD WNL LUNGS: Respiration seems nonlabored, no significant accessory muscle action noted. Bibasilar fine crackles and few a scattered bilateral wheezes rales or rhonchi noted. No significant dullness noted on percussion. CHEST: Palpation of the chest wall shows no significant chest wall tenderness. No other significant abnormalities noted. 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 ABDOMEN: Soft, no significant tenderness appreciated, normoactive bowel sounds. No guarding, no rebound. No rigidity noted . No masses appreciated. EXTREMITIES: Pedal pulses are 1-2+, no calf tenderness noted. No clubbing or cyanosis.trace to 1+ pedal edema noted NEUROLOGICAL: Focused neurological exam showed no significant neurologic deficit. Normal speech, no focal weakness appreciated. PSYCH: Normal mood, normal affect. Judgment and insight within normal limits. SKIN: No significant ecchymosis, skin is noted to be warm. MUSCULOSKELETAL EXAM: No significant acute joint swelling noted. Results Laboratory Results: 01/05/18 04:15 01/06/18 17:38 01/06/18 01/06/18 04:22 17:38 Sodium 142.7 144.5 Potassium 3.4 L 3.8 Chloride 113 H 113 H Carbon Dioxide 23 23 Anion Gap 7 9 BUN 36 H 35 H Creatinine 0.85 0.97 Est GFR ( Amer) > 60 > 60 Est GFR (Non-Af Amer) > 60 56 L Glucose 115 H 116 H Calcium 9.1 9.4 Total Bilirubin 0.3 AST 31 ALT 28 Alkaline Phosphatase 55 Total Protein 5.5 L Albumin 3.1 L 01/01/18 01/02/18 23:57 04:10 Creatine Kinase 35 Troponin I 0.020 EKG Comments: Telemetry shows sinus rhythm without any sustained tachycardia or bradycardia. Impressions: Abdomen/Pelvis CT 01/01/18 20:42 IMPRESSION: 1. Subsegmental atelectasis in the left base with possible right lower lobe pneumonia versus greater degree of atelectasis. 2. No urinary pathology is seen. 3. Lumbar degenerative changes. Chest X-Ray 01/04/18 00:00 IMPRESSION: Minimal right basilar atelectasis Moderate size retrocardiac hiatal hernia with air-fluid level Assessment & Plan - Diagnosis (1) Junctional tachycardia Is this a current diagnosis for this admission?: Yes (2) Paroxysmal atrial fibrillation Is this a current diagnosis for this admission?: Yes (3) COPD (chronic obstructive pulmonary disease) Qualifiers: COPD type: unspecified COPD Qualified Code(s): J44.9 - Chronic obstructive pulmonary disease, unspecified Is this a current diagnosis for this admission?: Yes (4) Chronic kidney disease Qualifiers: Chronic kidney disease stage: stage 2 (mild) Qualified Code(s): N18.2 - Chronic kidney disease, stage 2 (mild) Is this a current diagnosis for this admission?: Yes (5) Congestive heart failure Qualifiers: Heart failure type: diastolic Heart failure chronicity: acute on chronic Qualified Code(s): I50.33 - Acute on chronic diastolic (congestive) heart failure Is this a current diagnosis for this admission?: Yes (6) Coronary artery disease Qualifiers: Coronary Disease-Associated Artery/Lesion type: unspecified vessel or lesion type Is this a current diagnosis for this admission?: Yes - Notes Notes: Junctional tachycardia: Continue with Cardizem at 240 mg p.o. twice daily. In the past patient responded to vagal maneuvers such as very strong coughing. Nurses informed about this. No recurrences so far. Paroxysmal atrial fibrillation with rapid ventricular response. Medical regimen has been optimized. Maintain electrolytes within normal limits including magnesium level. Continue with her multaq therapy and also Cardizem therapy. Have added Ranexa since she was on this during last admission which seems to have prevented paroxysmal spells to some extent. Patient was placed on Eliquis at 5 mg p.o. twice daily. Because of low body weight and creatinine being low, will consider lowering dose to 2.5 mg p.o. twice daily. COPD: Continue with bronchodilator and steroid therapy as needed. Patient may be a candidate for Roflumilast. Chronic kidney disease: Currently stable. Congestive heart failure: Patient has acute on chronic congestive heart failure secondary to diastolic dysfunction. Believe that CHF precipitated by atrial flutter fibrillation and junctional tachycardia. Continue baseline Lasix at 40 mg p.o. daily. Coronary artery disease: Symptomatically stable. Recommend statin therapy. - Time Time with patient: Greater than 35 minutes - CODE STATUS was discussed, patient remains full code. Surrogate decision-maker unchanged. Multiple medical problems were addressed. More than 50% of the time spent coordinating care, discussing management plans with involved caregivers. Management plans discussed with involved personnels. Medical decision making was of moderate to high complexity, patient's has multiple comorbidities. Medications reviewed and adjusted accordingly: Yes
--- NOTE | 2018-01-07 13:18 | PDOC PROGRESS REPORT ---
Subjective Progress Note for:: 01/07/18 Subjective:: No recurrence of junctional tachycardia or atrial fibrillation. Edema also improved. No complaints. Patient claims to be wanting to go home. However she was at the [facility]. Patient seems to be doing better with gradual improvement. Pt is denying any chest arm or neck discomfort. Patient denying any PND, orthopnea. Patient denied any sustained palpitations, dizziness, syncope, near syncope. Patient denying any fever chills. Patient denying any other significant discomfort. Patient is maintaining sinus rhythm. Review of systems: Rest review of systems negative. Medications: Medications have been reviewed. Reason For Visit: PNEUMONIA, MULTIPLE CO MORBID CONDITIONS Physical Exam Vital Signs: Temp Pulse Resp BP Pulse Ox 98.2 F 76 15 113/57 L 91 L 01/07/18 11:39 01/07/18 11:39 01/07/18 11:39 01/07/18 11:39 01/07/18 11:39 Intake & Output 01/06/18 01/07/18 01/08/18 06:59 06:59 06:59 Intake Total 825 1550 237 Output Total 1250 950 400 Balance -425 600 -163 Weight 54.2 kg 54.8 kg Exam: GENERAL: well-nourished and in no acute distress. Alert and oriented x3 HEAD: Atraumatic, normocephalic. EYES: Pupils equal round and reactive to light, extraocular movements intact, sclera anicteric, conjunctiva are normal. ENT: TMs normal, nares patent, oropharynx clear without exudates. Moist mucous membranes. No oral ulcerations or bleeding gums noted NECK: supple without lymphadenopathy. Trachea is central. No cervical or axillary lymphadenopathy noted. Carotids are 2+, JVD WNL LUNGS: Respiration seems nonlabored, no significant accessory muscle action noted. Few a scattered wheezes rales or rhonchi noted. No significant dullness noted on percussion. CHEST: Palpation of the chest wall shows no significant chest wall tenderness. No other significant abnormalities noted. 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 ABDOMEN: Soft, no significant tenderness appreciated, normoactive bowel sounds. No guarding, no rebound. No rigidity noted . No masses appreciated. EXTREMITIES: Pedal pulses are 1-2+, no calf tenderness noted. No clubbing or cyanosis.trace to 1+ pedal edema noted NEUROLOGICAL: Focused neurological exam showed no significant neurologic deficit. Normal speech, no focal weakness appreciated. PSYCH: Normal mood, normal affect. Judgment and insight within normal limits. SKIN: No significant ecchymosis, skin is noted to be warm. MUSCULOSKELETAL EXAM: No significant acute joint swelling noted. Results Laboratory Results: 01/07/18 05:23 01/07/18 05:23 01/06/18 01/07/18 01/07/18 17:38 05:23 05:23 WBC 11.1 H RBC 3.92 Hgb 10.5 L Hct 32.3 L MCV 83 MCH 26.7 L MCHC 32.4 RDW 18.1 H Plt Count 285 Seg Neutrophils % Not Reportable Lymphocytes % Not Reportable Monocytes % Not Reportable Eosinophils % Not Reportable Basophils % Not Reportable Absolute Neutrophils Not Reportable Absolute Lymphocytes Not Reportable Absolute Monocytes Not Reportable Absolute Eosinophils Not Reportable Absolute Basophils Not Reportable Sodium 144.5 147.1 H Potassium 3.8 3.5 L Chloride 113 H 116 H Carbon Dioxide 23 23 Anion Gap 9 8 BUN 35 H 31 H Creatinine 0.97 0.92 Est GFR ( Amer) > 60 > 60 Est GFR (Non-Af Amer) 56 L 59 L Glucose 116 H 75 Calcium 9.4 9.1 Total Bilirubin 0.3 AST 31 ALT 28 Alkaline Phosphatase 55 Total Protein 5.5 L Albumin 3.1 L 01/01/18 01/02/18 23:57 04:10 Creatine Kinase 35 Troponin I 0.020 EKG Comments: Sinus rhythm without any sustained tachycardia or bradycardia. Impressions: Abdomen/Pelvis CT 01/01/18 20:42 IMPRESSION: 1. Subsegmental atelectasis in the left base with possible right lower lobe pneumonia versus greater degree of atelectasis. 2. No urinary pathology is seen. 3. Lumbar degenerative changes. Chest X-Ray 01/04/18 00:00 IMPRESSION: Minimal right basilar atelectasis Moderate size retrocardiac hiatal hernia with air-fluid level Assessment & Plan - Diagnosis (1) Junctional tachycardia Is this a current diagnosis for this admission?: Yes (2) Paroxysmal atrial fibrillation Is this a current diagnosis for this admission?: Yes (3) COPD (chronic obstructive pulmonary disease) Qualifiers: COPD type: unspecified COPD Qualified Code(s): J44.9 - Chronic obstructive pulmonary disease, unspecified Is this a current diagnosis for this admission?: Yes (4) Chronic kidney disease Qualifiers: Chronic kidney disease stage: stage 2 (mild) Qualified Code(s): N18.2 - Chronic kidney disease, stage 2 (mild) Is this a current diagnosis for this admission?: Yes (5) Congestive heart failure Qualifiers: Heart failure type: diastolic Heart failure chronicity: acute on chronic Qualified Code(s): I50.33 - Acute on chronic diastolic (congestive) heart failure Is this a current diagnosis for this admission?: Yes (6) Coronary artery disease Qualifiers: Coronary Disease-Associated Artery/Lesion type: unspecified vessel or lesion type Is this a current diagnosis for this admission?: Yes - Notes Notes: Medications reviewed. No new recommendations. Junctional tachycardia: Continue with Cardizem at 240 mg p.o. twice daily. In the past patient responded to vagal maneuvers such as very strong coughing. Nurses informed about this. No recurrences so far. Paroxysmal atrial fibrillation with rapid ventricular response. Medical regimen has been optimized. Maintain electrolytes within normal limits including magnesium level. Continue with her multaq therapy and also Cardizem therapy. Continue Ranexa since she was on this during last admission which seems to have prevented paroxysmal spells to some extent. Patient was placed on Eliquis at 5 mg p.o. twice daily. Because of low body weight and abnormal renal functions, consider lowering dose to 2.5 mg p.o. twice daily. COPD: Continue with bronchodilator and steroid therapy as needed. Patient may be a candidate for Roflumilast. Chronic kidney disease: Currently stable. Congestive heart failure: Patient has acute on chronic congestive heart failure secondary to diastolic dysfunction. Believe that CHF precipitated by atrial flutter fibrillation and junctional tachycardia. Continue baseline Lasix at 40 mg p.o. daily. Coronary artery disease: Symptomatically stable. Recommend statin therapy. - Time Time with patient: 15-25 minutes - CODE STATUS : was discussed, patient remains DO NOT RESUSCITATE. Surrogate decision-maker unchanged. Multiple medical problems were addressed. More than 50% of the time spent coordinating care, discussing management plans with involved caregivers. Management plans discussed with involved personnels. Medical decision making was of moderate to high complexity, patient's has multiple comorbidities. Medications reviewed and adjusted accordingly: Yes
[2018-01-07 18:21] VITALS: BP 106/60
[2018-01-07] MEDS ORDERED: EPOETIN ALFA INJ 20000 UNIT/1 ML VIAL (RENAL) SUBCUT SCH (20:00)
--- NOTE | 2018-01-07 20:14 | PDOC DISCHARGE SUMMARY ---
General - Admit/Disc Date/PCP Admission Date/Primary Care Provider: 01/01/18 23:09 YANA ALVAREZ MD Discharge Date: 01/07/18 - Discharge Diagnosis (1) Bilateral pneumonia Is this a current diagnosis for this admission?: Yes (2) Addisons disease Is this a current diagnosis for this admission?: Yes (3) Paroxysmal atrial fibrillation Is this a current diagnosis for this admission?: Yes (4) Metabolic encephalopathy Is this a current diagnosis for this admission?: Yes (5) Cardiomyopathy Is this a current diagnosis for this admission?: Yes (6) Chronic obstructive pulmonary disease Is this a current diagnosis for this admission?: Yes (7) Clostridium difficile colitis Is this a current diagnosis for this admission?: Yes - Additional Information Resuscitation Status: Do Not Resuscitate Discharge Diet: Diabetic Discharge Activity: Activity As Tolerated, Balance Activity w/Rest Prescriptions: Hydrocortisone [Cortef 10 mg Tablet] 10 mg PO QHS #90 tablet Apixaban [Eliquis 5 mg Tablet] 5 mg PO BID #60 tablet Dronedarone Hydrochloride [Multaq 400 mg Tablet] 400 mg PO Q12 #60 tablet Hydrocortisone [Cortef 10 mg Tablet] 20 mg PO QAM #90 tablet Insulin NPH Hum/Reg Insulin Hm [Humulin 70-30 Vial] 30 units SQ QAM #2 vial Insulin NPH Hum/Reg Insulin Hm [Humulin 70-30 Vial] 15 units SQ QPM #1 vial Ipratropium/Albuterol Sulfate [Duoneb 3 ml Ampul] 1 vial NEB RTQ6 #120 vial.neb Lactobacillus Acidophilus [Acidophilus] 1 cap PO BID #60 capsule Levofloxacin [Levaquin 750 mg Tablet] 750 mg PO Q2D@1800 #6 tablet Metronidazole [Flagyl 500 mg Tablet] 500 mg PO Q8 #15 tablet Home Medications: Acetaminophen [Tylenol 325 mg Tablet] 650 mg PO Q4HP PRN 01/02/18 Diltiazem HCl [Cardizem Cd 240 mg Capsule.cr] 240 mg PO Q12 01/02/18 Epoetin Luis Alfredo [Procrit Inj 20,000 Unit/1 ml Vial (Renal)] 20,000 units SQ TU@ 2000 01/02/18 Ferrous Sulfate [Feosol 325 mg Tablet] 325 mg PO DAILY 01/02/18 Furosemide [Lasix 40 mg Tablet] 40 mg PO QAM 01/02/18 Gabapentin [Neurontin] 800 mg PO Q8 01/02/18 Insulin Aspart [Novolog Insulin (Aspart) 100 unit/mL] See Protocol SQ ACHS 01/02 Omeprazole 20 mg PO BID 01/02/18 Apixaban [Eliquis 5 mg Tablet] 5 mg PO BID #60 tablet 01/07/18 Dronedarone Hydrochloride [Multaq 400 mg Tablet] 400 mg PO Q12 #60 tablet Hydrocortisone [Cortef 10 mg Tablet] 10 mg PO QHS #90 tablet 01/07/18 Hydrocortisone [Cortef 10 mg Tablet] 20 mg PO QAM #90 tablet 01/07/18 Insulin NPH Hum/Reg Insulin Hm [Humulin 70-30 Vial] 15 units SQ QPM #1 vial Insulin NPH Hum/Reg Insulin Hm [Humulin 70-30 Vial] 30 units SQ QAM #2 vial Ipratropium/Albuterol Sulfate [Duoneb 3 ml Ampul] 1 vial NEB RTQ6 #120 vial.neb 01/07/18 Lactobacillus Acidophilus [Acidophilus] 1 cap PO BID #60 capsule 01/07/18 Levofloxacin [Levaquin 750 mg Tablet] 750 mg PO Q2D@1800 #6 tablet 01/07/18 Metronidazole [Flagyl 500 mg Tablet] 500 mg PO Q8 #15 tablet 01/07/18 Potassium Chloride [Klor-Con 10 Meq Tablet.sa] 40 meq PO DAILY tablet.sa History of Present Illness History of Present Illness: JESSY PARKER is a 77 year old female, she has multiple comorbid condition she was recently admitted in this hospital on November 28, 2017 she was discharged on 12/10/2017 to the [facility] for [facility] I saw her in the retirement on rounds, she has a history of Laporte disease, paroxysmal atrial fibrillation when I saw her in the retirement I started on Eliquis for stroke prophylaxis because of history of atrial fibrillation with a high libertad S2 score but on review of medication from the retirement she apparently is not on the medication, she was also started on hydrocortisone replacement therapy because she has a history of Laporte disease but again on review of the medication she is still on prednisone 60 mg 2 times a day. She was transfused with packed red blood cells yesterday, she was transferred to the emergency room from the retirement for evaluation of altered mental status, in the emergency room history taking was a challenge because she was stuporous, CT scan of the abdomen and pelvis with no contrast was obtained as well, there was opacification in both lung bases, right more than left with air bronchograms suggesting pneumonia there is also prominent hiatal hernia. There was leukocytosis which could be from the steroid that she is on. She has a history of COPD, the last time she was admitted she was diagnosed with MRSA pneumonia, sensitive to clindamycin she was treated with clindamycin she also have chronic kidney disease, cardiomyopathy. The ABG on FiO2 of 2 L, PO2 was 96, pH is 7.45 , PCO2 38.1, bicarbonate, 25.9 Hospital Course Hospital Course: Patient was admitted for the management of bilateral pneumonia, she was in the retirement undergoing rehabilitation when she presented with altered mental status, on evaluation she was found to have bilateral pneumonia. 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 Hospital course was complicated with clostridium difficile colitis requiring p.o. Flagyl she also had episode of paroxysmal atrial fibrillation with rapid irregular response. On this admission she was started on Eliquis because of elevated libertad S2 score that increases risk of CVA with a background of atrial fibrillation.Patient did respond very well to treatment she opted to go back to her residence with her daughter rather than return to retirement for rehabilitation. She was discharged home today with her daughter in stable condition Physical Exam Vital Signs: Temp Pulse Resp BP Pulse Ox 98.4 F 83 17 106/60 97 01/07/18 18:19 01/07/18 18:19 01/07/18 18:19 01/07/18 18:19 01/07/18 18:19 Intake & Output 01/06/18 01/07/18 01/08/18 06:59 06:59 06:59 Intake Total 825 1550 711 Output Total 1250 950 400 Balance -425 600 311 Weight 54.2 kg 54.8 kg General appearance: PRESENT: no acute distress, well-developed, well-nourished Head exam: PRESENT: atraumatic, normocephalic Eye exam: PRESENT: conjunctiva pink, EOMI, PERRLA Ear exam: PRESENT: normal external ear exam Mouth exam: PRESENT: moist, tongue midline Neck exam: PRESENT: full ROM Respiratory exam: PRESENT: clear to auscultation koko Cardiovascular exam: PRESENT: RRR, +S1 Pulses: PRESENT: normal dorsalis pedis pul, +2 pedal pulses bilateral Vascular exam: PRESENT: normal capillary refill GI/Abdominal exam: PRESENT: normal bowel sounds, soft Rectal exam: PRESENT: deferred Neurological exam: PRESENT: alert, awake, oriented to person, oriented to place , oriented to time, oriented to situation, CN II-XII grossly intact Psychiatric exam: PRESENT: appropriate affect, normal mood Skin exam: PRESENT: dry, intact, warm Results Laboratory Results: 01/07/18 05:23 01/07/18 05:23 01/07/18 01/07/18 05:23 05:23 WBC 11.1 H RBC 3.92 Hgb 10.5 L Hct 32.3 L MCV 83 MCH 26.7 L MCHC 32.4 RDW 18.1 H Plt Count 285 Seg Neutrophils % Not Reportable Lymphocytes % Not Reportable Monocytes % Not Reportable Eosinophils % Not Reportable Basophils % Not Reportable Absolute Neutrophils Not Reportable Absolute Lymphocytes Not Reportable Absolute Monocytes Not Reportable Absolute Eosinophils Not Reportable Absolute Basophils Not Reportable Sodium 147.1 H Potassium 3.5 L Chloride 116 H Carbon Dioxide 23 Anion Gap 8 BUN 31 H Creatinine 0.92 Est GFR ( Amer) > 60 Est GFR (Non-Af Amer) 59 L Glucose 75 Calcium 9.1 01/01/18 01/02/18 23:57 04:10 Creatine Kinase 35 Troponin I 0.020 Impressions: Abdomen/Pelvis CT 01/01/18 20:42 IMPRESSION: 1. Subsegmental atelectasis in the left base with possible right lower lobe pneumonia versus greater degree of atelectasis. 2. No urinary pathology is seen. 3. Lumbar degenerative changes. Chest X-Ray 01/04/18 00:00 IMPRESSION: Minimal right basilar atelectasis Moderate size retrocardiac hiatal hernia with air-fluid level Qualifiers - * PATEINT BEING DISCHARGED WITH ANY OF THE FOLLOWING DIAGNOSIS?: No
[2018-01-07] MEDS ORDERED: HYDROCORTISONE 10 MG TABLET PO SCH (22:00)
[2018-01-08] MEDS ORDERED: HYDROCORTISONE 10 MG TABLET PO SCH (08:00)
== END 2018-01-07 18:54 | disposition home or self-care (01) | DRG 193 ==
LOC: ER 17:16 → EH 23:09 → 3N 01-02 01:52
PROVIDERS: ADMIT Internal Medicine; ATTEND Internal Medicine
DX: J18.1 Lobar pneumonia, unspecified organism (principal); G93.41 Metabolic encephalopathy; I50.33 Acute on chronic diastolic (congestive) heart failure; Z66 Do not resuscitate; A04.72 Enterocolitis due to Clostridium difficile, not specified as recurrent; E27.1 Primary adrenocortical insufficiency; I13.0 Hypertensive heart and chronic kidney disease with heart failure and stage 1 through stage 4 chronic kidney disease, or unspecified chronic kidney disease; I42.9 Cardiomyopathy, unspecified; I47.1 Supraventricular tachycardia; E11.22 Type 2 diabetes mellitus with diabetic chronic kidney disease; N18.2 Chronic kidney disease, stage 2 (mild); J44.9 Chronic obstructive pulmonary disease, unspecified; D64.9 Anemia, unspecified; I48.0 Paroxysmal atrial fibrillation; I25.10 Atherosclerotic heart disease of native coronary artery without angina pectoris; Z88.6 Allergy status to analgesic agent; Z88.0 Allergy status to penicillin; Z91.013 Allergy to seafood; Z79.01 Long term (current) use of anticoagulants; Z86.14 Personal history of Methicillin resistant Staphylococcus aureus infection; Z79.4 Long term (current) use of insulin; Z79.52 Long term (current) use of systemic steroids; Z79.899 Other long term (current) drug therapy
CPT/HCPCS: 36415; 51701; 71045; 71046; 74176; 80048; 80053; 81001; 82272; 82550; 82803; 82962; 83036; 83605; 83615; 84484; 85025; 85027; 85610; 86850; 86900; 86901; 87040; 87086; 87493; 93005; 93010; 96365; 96367; 99291; G8978-GP; G8979-GP; J1580; J1720; J1815; J1940; J1956; J3370; J3490; J7620; Q4081

== ENCOUNTER → 2018-01-16 | Outpatient (CLI) | payer MEDICARE, OTHER ==
[2018-01-16 11:08] LABS: HEMATOCRIT 36.8 % (36.0-47.0); HEMOGLOBIN 11.7 g/dL (12.0-15.5); MEAN CORPUSCULAR HEMOGLOBIN 26.4 pg (27.0-33.4); MEAN CORPUSCULAR HGB CONC 31.8 g/dL (32.0-36.0); MEAN CORPUSCULAR VOLUME 83 fl (80-97); PLATELET COUNT 221 10^3/uL (150-450); RED BLOOD COUNT 4.43 10^6/uL (3.72-5.28); RED CELL DISTRIBUTION WIDTH 18.7 % (11.5-14.0); WHITE BLOOD COUNT 14.3 10^3/uL (4.0-10.5)
[2018-01-16 11:27] LABS: ANION GAP 10 (5-19); BLOOD UREA NITROGEN 40 mg/dL (7-20); CALCIUM 8.9 mg/dL (8.4-10.2); CARBON DIOXIDE 27 mmol/L (22-30); CHLORIDE 109 mmol/L (98-107); GLUCOSE 357 mg/dL (75-110); IRON(TIBC) 70.3 ug/dL (37-170); POTASSIUM 3.2 mmol/L (3.6-5.0); SODIUM 145.7 mmol/L (137-145)
[2018-01-17 10:38] LABS: CREATININE URINE 19.7 mg/dL (Not Estab.); MICROALBUMIN URINE 11.1 ug/mL (Not Estab.)
== END ==
LOC: OD 09:55
PROVIDERS: ATTEND Physician Assistant Medical
DX: N18.3 Chronic kidney disease, stage 3 (moderate) (principal); E11.9 Type 2 diabetes mellitus without complications; D64.9 Anemia, unspecified; E87.6 Hypokalemia
CPT/HCPCS: 36415; 80048; 82043; 82570; 82728; 83540; 83550; 85027

== ENCOUNTER → 2018-02-07 | Outpatient (CLI) | payer MEDICARE, OTHER ==
--- NOTE | 2018-02-07 16:50 | RADIOLOGY REPORT (SQ) ---
EXAM DESCRIPTION: HAND LEFT 3 VIEWS COMPLETED DATE/TIME: 02/07/2018 4:40 pm REASON FOR STUDY: PAIN IN LEFT HAND M79.642 PAIN IN LEFT HAND COMPARISON: 08/05/2017 EXAM PARAMETERS: NUMBER OF VIEWS: Three views. TECHNIQUE: AP, lateral and oblique radiographic images acquired of the left hand. LIMITATIONS: None. FINDINGS: MINERALIZATION: Osteopenia. BONES: No acute fracture or dislocation. No worrisome bone lesions. JOINTS: Extensive degenerative joint changes seen in the interphalangeal joints and in the metacarpop halangeal joints. Degenerative joint changes are seen at the 1st carpometacarpal joint. Degenerativ e joint changes are present in the radiocarpal joints. There is widening of the scapholunate interva l. SOFT TISSUES: There is lateral soft tissue swelling in the hand and wrist. OTHER: No other significant finding. IMPRESSION: Degenerative joint disease with no acute osseous abnormality. Widening of the scapholun ate interval suggests ligament disruption. No acute finding is appreciated. TECHNICAL DOCUMENTATION: JOB ID: [id number] [employer]- All Rights Reserved Reading location - IP/workstation name: [email or web address]
== END ==
LOC: OD 16:05
PROVIDERS: ATTEND Family Medicine
DX: M79.642 Pain in left hand (principal); M19.042 Primary osteoarthritis, left hand

== ENCOUNTER → 2018-02-07 | Outpatient (CLI) | payer MEDICARE, OTHER ==
[2018-02-07 18:05] LABS: ANION GAP 13 (5-19); BLOOD UREA NITROGEN 62 mg/dL (7-20); CALCIUM 10.2 mg/dL (8.4-10.2); CARBON DIOXIDE 30 mmol/L (22-30); CHLORIDE 103 mmol/L (98-107); GLUCOSE 271 mg/dL (75-110); SODIUM 145.7 mmol/L (137-145)
== END ==
LOC: OD 16:31
PROVIDERS: ATTEND Family Medicine
DX: N18.3 Chronic kidney disease, stage 3 (moderate) (principal)
CPT/HCPCS: 36415; 80048

== ENCOUNTER → 2018-02-16 | Outpatient (CLI) | payer MEDICARE, OTHER ==
--- NOTE | 2018-02-19 14:53 | RADIOLOGY REPORT (SQ) ---
EXAM DESCRIPTION: PET CT SKULL/THIGH COMPLETED DATE/TIME: 02/16/2018 9:05 pm REASON FOR STUDY: SOLITARY PULMONARY NODULE R91.1 SOLITARY PULMONARY NODULE COMPARISON: None. RADIONUCLIDE AND DOSE: 10.63 mCi F18 FDG The route of agent administration: Intravenous FASTING BLOOD SUGAR: 107 mg/dl CONTRAST TYPE AND DOSE: No CT contrast given. TECHNIQUE: Blood glucose level was verified. Above dose of FDG was injected intravenously. 2-D seg mented attenuation correction images were obtained from the base of the skull to the midthighs. Nonc ontrast CT images were obtained for attenuation correction and fusion with emission images. CT image s were performed without oral or intravenous contrast and are not sensitive for parenchymal lesions. A series of overlapping emission PET images were obtained. Images reviewed and manipulated at [facility] work station by the radiologist. Images stored on PACS. LIMITATIONS: Right hip arthroplasty. FINDINGS: HEAD AND NECK: No areas of abnormal metabolic activity in the soft tissues of the head and neck. CHEST: No areas of abnormal metabolic activity in the chest. ABDOMEN AND PELVIS: No areas of abnormal metabolic activity in the abdomen or pelvis. Expected physi ologic activity is present in the genitourinary system and bowel. PROXIMAL LOWER EXTREMITIES: No areas of abnormal metabolic activity in the soft tissues of the lower extremities. BONES: No abnormal metabolic activity in the visualized skeleton. ADDITIONAL CT FINDINGS: Chronic bandlike atelectasis or scarring right lower lobe which is not hyperm etabolic. Large hiatal hernia. Bilateral subacromial bursal fluid collections. OTHER: No other significant findings. IMPRESSION: No evidence of hypermetabolic pulmonary nodule. TECHNICAL DOCUMENTATION: JOB ID: [id number] [employer]- All Rights Reserved Reading location - IP/workstation name: [facility]
== END ==
LOC: RAD 02-09 15:45
PROVIDERS: ATTEND Physician Assistant
DX: R91.1 Solitary pulmonary nodule (principal)
CPT/HCPCS: 78815; A9552

== ENCOUNTER 2018-03-22 20:58 | Inpatient (IN) | payer MEDICARE, OTHER ==
[2018-03-22] MEDS ORDERED: ACETAMINOPHEN 650 MG SUPP.RECT PR ONE (21:12)
[2018-03-22 21:40] LABS: HEMATOCRIT 32.6 % (36.0-47.0); HEMOGLOBIN 10.7 g/dL (12.0-15.5); MEAN CORPUSCULAR HEMOGLOBIN 28.2 pg (27.0-33.4); MEAN CORPUSCULAR HGB CONC 32.7 g/dL (32.0-36.0); MEAN CORPUSCULAR VOLUME 86 fl (80-97); PLATELET COUNT 284 10^3/uL (150-450); RED BLOOD COUNT 3.78 10^6/uL (3.72-5.28); RED CELL DISTRIBUTION WIDTH 18.9 % (11.5-14.0)
[2018-03-22 21:42] LABS: INTERNATIONAL RATION (INR) 1.22
[2018-03-22 21:50] LABS: VENOUS BLOOD BASE EXCESS 3.3 mmol/L; VENOUS BLOOD HCO3 27.4 mmol/L (20-32); VENOUS BLOOD PCO2 40.2 mmHg (35-63); VENOUS BLOOD PH 7.45 (7.30-7.42)
--- NOTE | 2018-03-22 21:57 | RADIOLOGY REPORT (SQ) ---
EXAM DESCRIPTION: CT HEAD WITHOUT COMPLETED DATE/TIME: 03/22/2018 9:44 pm REASON FOR STUDY: ams COMPARISON: CT head 12/11/2017, 07/24/2015. TECHNIQUE: Axial images acquired through the brain without intravenous contrast. Images reviewed wi th bone, brain and subdural windows. Images stored on PACS. All CT scanners at this facility use dose modulation, iterative reconstruction, and/or weight based d osing when appropriate to reduce radiation dose to as low as reasonably achievable (ALARA). [facility]: Dose Right [facility]: CareDose [facility]: Dose Right [facility]: Teradose 4D [facility]: [employer] RADIATION DOSE: CT Rad equipment meets quality standard of care and radiation dose reduction techniq ues were employed. CTDIvol: 53.2 mGy. DLP: 991 mGy-cm. mGy. LIMITATIONS: None. FINDINGS: VENTRICLES: The prominent. CEREBRUM: No mass effect. No hemorrhage. No midline shift. Areas of low density in the white matte r most likely due to chronic micro-vascular ischemic change. No evidence for acute territorial infar ction. CEREBELLUM: No hemorrhage. No alteration of density. No evidence for acute infarction. EXTRAAXIAL SPACES: Age-related involutional change. No fluid collections. ORBITS AND GLOBE: Symmetrical contour of the globes. CALVARIUM: No depressed fracture. PARANASAL SINUSES: No air-fluid level. SOFT TISSUES: No hematoma. IMPRESSION: No acute intracranial hemorrhage or acute territorial infarct. Mild chronic changes of atrophy and microvascular ischemia. EVIDENCE OF ACUTE STROKE: NO. TECHNICAL DOCUMENTATION: JOB ID: [id number] PA-64 Quality ID # [id number]: Final reports with documentation of one or more dose reduction techniques (e.g., Au tomated exposure control, adjustment of the mA and/or kV according to patient size, use of iterative reconstruction technique) 2010 [employer]- All Rights Reserved Reading location - IP/workstation name: [email or web address] ENRIQUE
[2018-03-22 22:00] LABS: ALANINE AMINOTRANSFERASE 25 U/L (9-52); ALKALINE PHOSPHATASE 77 U/L (38-126); ANION GAP 14 (5-19); ASPARTATE AMINO TRANSFERASE 24 U/L (14-36); BILIRUBIN,DIRECT 0.4 mg/dL (0.0-0.4); BILIRUBIN,TOTAL 0.6 mg/dL (0.2-1.3); BLOOD UREA NITROGEN 38 mg/dL (7-20); CALCIUM 9.8 mg/dL (8.4-10.2); CARBON DIOXIDE 26 mmol/L (22-30); CHLORIDE 107 mmol/L (98-107); GLUCOSE 143 mg/dL (75-110); POTASSIUM 4.1 mmol/L (3.6-5.0); SODIUM 146.9 mmol/L (137-145)
[2018-03-22 22:04] LABS: ABSOLUTE LYMPHOCYTES# (MANUAL) 4.1 10^3/uL (0.5-4.7); ABSOLUTE NEUTROPHILS# (MANUAL) 13.8 10^3/uL (1.7-8.2); BAND NEUTROPHILS % (MANUAL) 1 % (3-5); BASOPHILS % (MANUAL) 0 % (0-2); EOSINOPHILS % (MANUAL) 0 % (0-6); LYMPHOCYTES % (MANUAL) 23 % (13-45); MONOCYTES % (MANUAL) 0 % (3-13); NUCLEATED RED BLOOD CELLS 1 /100 WBC (0); SEGMENTED NEUTROPHILS % (MAN) 73 % (42-78); TOTAL CELLS COUNTED 100
[2018-03-22 22:05] LABS: ANISOCYTOSIS 2+; HYPOCHROMASIA 1+; POIKILOCYTOSIS 1+; POLYCHROMASIA 1+
[2018-03-22 22:06] LABS: OVALOCYTES SLIGHT; SCHISTOCYTES SLIGHT; TEAR DROP CELLS 1+
[2018-03-22 22:07] LABS: METAMYELOCYTES % (MANUAL) 3 % (0); PLATELET COMMENT ADEQUATE
[2018-03-22 22:10] LABS: WHITE BLOOD COUNT 17.9 10^3/uL (4.0-10.5)
--- NOTE | 2018-03-22 22:13 | RADIOLOGY REPORT (SQ) ---
EXAM DESCRIPTION: CHEST SINGLE VIEW COMPLETED DATE/TIME: 03/22/2018 9:47 pm REASON FOR STUDY: sepsis COMPARISON: Chest x-ray 01/04/2018. EXAM PARAMETERS: NUMBER OF VIEWS: One view. TECHNIQUE: Single frontal radiographic view of the chest acquired. RADIATION DOSE: NA LIMITATIONS: None. FINDINGS: LUNGS AND PLEURA: There are bibasilar airspace opacities. No pleural effusion or pneumoth orax. MEDIASTINUM AND HILAR STRUCTURES: No masses. Contour normal. HEART AND VASCULAR STRUCTURES: The heart is upper normal limit in size. No overt vascular congestion . BONES: Degenerative changes are seen at the bilateral glenohumeral joints. HARDWARE: None in the chest. IMPRESSION: Bibasilar airspace opacities, may represent atelectasis or pneumonia. TECHNICAL DOCUMENTATION: JOB ID: [id number] OH-64 2010 [employer]- All Rights Reserved Reading location - IP/workstation name: [email or web address]
[2018-03-22 22:17] LABS: APPEARANCE,URINE CLEAR; BILIRUBIN,URINE NEGATIVE (NEGATIVE); COLOR,URINE YELLOW; GLUCOSE, URINE 50 mg/dL (NEGATIVE); KETONES,URINE NEGATIVE (NEGATIVE); LEUKOCYTE ESTERASE,URINE NEGATIVE (NEGATIVE); NITRITE,URINE NEGATIVE (NEGATIVE); PROTEIN,URINE 100 mg/dL (NEGATIVE); URINE SPECIFIC GRAVITY 1.015; UROBILINOGEN,URINE NEGATIVE mg/dL (<2.0)
[2018-03-22] MEDS ORDERED: LEVOFLOXACIN 750 MG/D5W RTU 750 MG/150 ML RTUPB IV ONE (22:52)
[2018-03-22] MEDS ORDERED: VANCOMYCIN HCL INJ 1000 MG VIAL IV ONE (22:52)
[2018-03-22] MEDS ORDERED: AZTREONAM INJ 1 GM VIAL IV ONE (22:52)
[2018-03-22] MEDS ORDERED: FERROUS SULFATE 325 MG TABLET PO ONE (23:00)
--- NOTE | 2018-03-22 23:01 | ER Document Report ---
ED Fever - General Chief Complaint: Fever Stated Complaint: FEVER Time Seen by Provider: 03/22/18 21:12 Information source: Relative Cannot obtain history due to: Altered mental status Notes: 77 year old Female brought to the ED for altered mental status and fever. Patient is a DNR. She lives at home with her family. Family state that today she began acting confused. Hx of COPD. On oxygen at night. Family says that the patient was trying to hook her tubing up to her belt. They say that this isn't her normal mental status. Family state that she gets pneumonia and UTIs frequently. Her last admission was in the end of December for pneumonia. Patient has not been on antibiotics since discharge from the hospital. Patient has not complained of shortness of breath, chest pain, increased urgency, increased frequency, or dysuria. TRAVEL OUTSIDE OF THE [place] IN LAST 30 DAYS: No - HPI Patient complains to provider of: fever Onset: Just prior to arrival Onset/Duration: Sudden Quality of pain: No pain Severity: None Pain Level: Denies Context: Other - confusion Associated symptoms: Fever Similar symptoms previously: Yes Recently seen / treated by doctor: No - Related Data Allergies/Adverse Reactions: aspirin [Aspirin] Allergy (Verified 03/22/18 23:03) colchicine Allergy (Verified 03/22/18 23:03) iodine Allergy (Verified 03/22/18 23:03) Penicillins Allergy (Verified 03/22/18 23:03) Hives shellfish derived Allergy (Verified 03/22/18 23:03) Past Medical History - General Information source: Relative - Social History Smoking Status: Former Smoker Frequency of alcohol use: None Drug Abuse: None Family History: CAD, Hyperlipidemia, Hypertension Patient has suicidal ideation: No Patient has homicidal ideation: No - Past Medical History Cardiac Medical History: Reports: Hx Atrial Fibrillation, Hx Congestive Heart Failure, Hx Coronary Artery Disease, Hx Hypercholesterolemia, Hx Hypertension Pulmonary Medical History: Reports: Hx Asthma, Hx Bronchitis, Hx Pneumonia Endocrine Medical History: Reports: Hx Diabetes Mellitus Type 2 Renal/ Medical History: Denies: Hx Peritoneal Dialysis GI Medical History: Reports: Hx Gastroesophageal Reflux Disease, Hx Hiatal Hernia, Hx Ulcerative Colitis Musculoskeltal Medical History: Reports Hx Arthritis Psychiatric Medical History: Reports: Hx Depression Infectious Medical History: Reports: Hx MRSA Past Surgical History: Reports: Hx Abdominal Surgery - colon resection, Hx Appendectomy, Other - History of right hemicolectomy, questionable history of ulcerative colitis. Review of Systems - Review of Systems -: Yes ROS unobtainable due to patient's medical condition - altered mental status Physical Exam - Vital signs Vitals: Temp Pulse Resp Pulse Ox 102.9 F H 88 16 95 03/22/18 21:10 03/22/18 21:10 03/22/18 21:10 03/22/18 21:10 Interpretation: Tachycardic, Febrile - Notes Notes: PHYSICAL EXAMINATION: GENERAL: Ill appearing. HEAD: Atraumatic, Alert and orientated to person. EYES: Pupils equal round and reactive to light, extraocular movements intact, conjunctiva are normal. ENT: Nares patent, oropharynx clear without exudates. Moist mucous membranes. NECK: Normal range of motion, supple without lymphadenopathy LUNGS: Breath sounds clear to auscultation bilaterally and equal. No wheezes rales or rhonchi. HEART: Regular rate and rhythm without murmurs ABDOMEN: Soft, nontender, nondistended abdomen. No guarding, no rebound. No masses appreciated. Female : deferred Musculoskeletal: Normal range of motion, no pitting or edema. No cyanosis NEUROLOGICAL: Cranial nerves grossly intact. Normal speech. Normal sensory, motor exams PSYCH: Normal mood, normal affect. SKIN: Warm, Dry, normal turgor, no rashes or lesions noted. Course - Re-evaluation Re-evalutation: 03/22/18 23:13 Patient is febrile and tachycardic on arrival. Given rectal tylenol. Orientated only to person. Patient is DNR. Lungs are clear to auscultation bilaterally. No abdominal tenderness to palpation. Labs and imaging obtained. CT head does not show an acute process. CXR shows bilateral pneumonia. UA is WNL. WBC is elevated. Patient allergic to penicillins. Hx of MRSA pneumonia. With patient's hospitalization within the last 3 months, started patient on Vancomycin, Levofloxacin, and Aztreonam. I contacted Dr. Khan for admission. He is agreeable with admitting the patient. Patient currently stable. - Vital Signs Vital signs: Temp Pulse Resp BP Pulse Ox 102.9 F H 88 17 148/52 H 93 03/22/18 21:10 03/22/18 21:10 03/22/18 22:31 03/22/18 22:31 03/22/18 22:31 - Laboratory Result Diagrams: 03/22/18 21:15 03/22/18 21:15 Laboratory results interpreted by me: 03/22/18 03/22/18 03/22/18 21:15 21:15 21:15 WBC 17.9 H Hgb 10.7 L Hct 32.6 L RDW 18.9 H Band Neutrophils % 1 L Monocytes % (Manual) 0 L Metamyelocytes % 3 H Abs Neuts (Manual) 13.8 H Abs Monocytes (Manual) 0.0 L PT 16.0 H VBG pH Sodium 146.9 H BUN 38 H Est GFR ( Amer) 54 L Est GFR (Non-Af Amer) 45 L Glucose 143 H POC Glucose Urine Protein Urine Glucose (UA) 03/22/18 03/22/18 03/22/18 21:15 21:23 21:57 WBC Hgb Hct RDW Band Neutrophils % Monocytes % (Manual) Metamyelocytes % Abs Neuts (Manual) Abs Monocytes (Manual) PT VBG pH 7.45 H Sodium BUN Est GFR ( Amer) Est GFR (Non-Af Amer) Glucose POC Glucose 155 H Urine Protein 100 H Urine Glucose (UA) 50 H - EKG Interpretation by Me EKG shows normal: Sinus rhythm Rate: Tachycardia When compared to previous EKG there are: Changes noted - ST depression in leads V2, V3, V4. Discharge - Discharge Clinical Impression: Sepsis Qualifiers: Sepsis type: sepsis due to unspecified organism Qualified Code(s): A41.9 - Sepsis, unspecified organism Pneumonia Qualifiers: Pneumonia type: due to unspecified organism Laterality: bilateral Lung location : lower lobe of lung Qualified Code(s): J18.1 - Lobar pneumonia, unspecified organism Condition: Good Disposition: ADMITTED INPATIENT Admitting Provider: [facility] Unit Admitted: IMCU Referrals: KEILY CHRISTIANSON MD [Primary Care Provider] - Follow up as needed
[2018-03-22] MEDS ORDERED: IPRATROPIUM BROMIDE 0.02% NEB 0.5 MG/2.5 ML AMPUL NEB PRN (23:28)
[2018-03-22] MEDS ORDERED: DIGOXIN 0.125 MG TABLET PO SCH (23:30)
[2018-03-22] MEDS ORDERED: HUM INSULIN NPH/REG INSULIN HM 100 UNIT/1 ML 3 ML SUBCUT ONE (23:45)
[2018-03-22] MEDS ORDERED: CHOLECALCIFEROL (D3) 1,000 UNIT TABLET PO ONE (23:45)
[2018-03-22] MEDS ORDERED: FENOFIBRATE NANOCRYSTALLIZED 145 MG TABLET PO ONE (23:45)
[2018-03-22] MEDS ORDERED: HYDROCORTISONE SOD SUCCINATE INJ/PF 100 MG/2 ML SDV IV ONE (23:45)
[2018-03-22] MEDS ORDERED: APIXABAN 5 MG TABLET PO ONE (23:45)
[2018-03-22] MEDS ORDERED: DILTIAZEM HCL 240 MG CAPSULE.CR PO ONE (23:45)
[2018-03-22] MEDS ORDERED: LEVALBUTEROL HCL NEB 0.63 MG/3 ML AMPUL NEB ONE (23:45)
[2018-03-22] MEDS ORDERED: BUDESONIDE NEB 0.5 MG/2 ML AMPUL NEB ONE (23:45)
[2018-03-22] MEDS ORDERED: DRONEDARONE HYDROCHLORIDE 400 MG TABLET PO ONE (23:45)
[2018-03-23] MEDS ORDERED: GABAPENTIN 400 MG CAPSULE PO ONE (00:30)
[2018-03-23 00:59] LABS: ARTERIAL BLOOD BASE EXCESS 1.3 mmol/L; ARTERIAL BLOOD FIO2 2L; ARTERIAL BLOOD H2CO3 1.04 mmol/L (1.05-1.35); ARTERIAL BLOOD HCO3 24.8 mmol/L (20-26); ARTERIAL BLOOD O2 SATURATION 96.5 % (94-98); ARTERIAL BLOOD PCO2 34.5 mmHg (35-45); ARTERIAL BLOOD PH 7.48 (7.35-7.45); ARTERIAL BLOOD PO2 79.7 mmHg (80-100); ARTERIAL BLOOD TOTAL CO2 25.9 mmol/L (21-25)
[2018-03-23 01:28] LABS: CREATINE KINASE MB 1.65 ng/mL (<4.55); TROPONIN I 0.012 ng/mL
[2018-03-23 01:37] LABS: C-REACTIVE PROTEIN 73.2 mg/L (<10.0)
--- NOTE | 2018-03-23 01:44 | RADIOLOGY REPORT (SQ) ---
EXAM DESCRIPTION: CT CHEST WITHOUT IV CONTRAST CLINICAL HISTORY: 77 years Female, pneumonia Comparison: 11/22/2017, report only. CT/PET, February 16, 2018, report only. Technique: No contrast. Coronal and sagittal reformat. This exam was performed according to our departmental dose-optimization program, which includes automated exposure control, adjustment of the mA and/or kV according to patient size and/or use of iterative reconstruction technique.[facility]: Dose Right [facility]: CareDose [facility]: Dose Right [facility]: Teradose 4D [facility]: [employer] LIMITATIONS: None Findings: Large 10 cm hiatal hernia, moderate opacity in the right lower lobe due to atelectasis or pneumonia. Moderate scoliotic curvature, atherosclerosis, mild osteoarthritis. Severe T6 anterior vertebral wedging likely worsened compared to prior report from November 2017.. Unenhanced inferior neck, axillae, mediastinum, airway, lymphatics, heart, vasculature, upper abdomen, and musculoskeleton appear otherwise unremarkable. Impression: 1. Moderate right lower lobar atelectasis/pneumonia. Large hiatal hernia. Recommend direct comparison with prior exams (if these become available, I will provide an addendum shortly) and/or CR/CT surveillance including at 7-12 weeks following initiation of clinically warranted therapy. 2. Severe T6 anterior vertebral compression deformity.
[2018-03-23] MEDS ORDERED: HYDROCORTISONE SOD SUCCINATE INJ/PF 100 MG/2 ML SDV IV ONE (03:15)
[2018-03-23] MEDS ORDERED: LEVALBUTEROL HCL NEB 0.63 MG/3 ML AMPUL NEB ONE (03:15)
[2018-03-23] MEDS ORDERED: DILTIAZEM HCL 240 MG CAPSULE.CR PO ONE (03:15)
[2018-03-23] MEDS ORDERED: BUDESONIDE NEB 0.5 MG/2 ML AMPUL NEB ONE (03:15)
[2018-03-23] MEDS ORDERED: APIXABAN 5 MG TABLET PO ONE (03:15)
[2018-03-23] MEDS ORDERED: DRONEDARONE HYDROCHLORIDE 400 MG TABLET PO ONE (03:15)
[2018-03-23] MEDS ORDERED: AZTREONAM INJ 1 GM VIAL ONE (03:36)
[2018-03-23] MEDS ORDERED: FERROUS SULFATE 325 MG TABLET PO ONE (04:00)
[2018-03-23] MEDS: NORMAL SALINE 1000 ML 1,000 ML IV PRN (04:32)
[2018-03-23 05:24] LABS: HEMATOCRIT 26.1 % (36.0-47.0); MEAN CORPUSCULAR HEMOGLOBIN 28.8 pg (27.0-33.4); MEAN CORPUSCULAR HGB CONC 33.1 g/dL (32.0-36.0); MEAN CORPUSCULAR VOLUME 87 fl (80-97); PLATELET COUNT 204 10^3/uL (150-450); RED CELL DISTRIBUTION WIDTH 18.8 % (11.5-14.0); WHITE BLOOD COUNT 12.5 10^3/uL (4.0-10.5)
[2018-03-23 05:30] LABS: HEMOGLOBIN 8.6 g/dL (12.0-15.5)
[2018-03-23] MEDS: HYDROCORTISONE SOD SUCCINATE INJ/PF 100 MG/2 ML SDV IV SCH ×3 (05:41→21:16)
[2018-03-23] MEDS: AZTREONAM 1 GM in DEXTROSE 5%-WATER 50 ML IV SCH ×3 (05:41→21:17)
[2018-03-23 05:58] LABS: ALANINE AMINOTRANSFERASE 22 U/L (9-52); ALBUMIN 2.8 g/dL (3.5-5.0); ALKALINE PHOSPHATASE 60 U/L (38-126); ANION GAP 9 (5-19); ASPARTATE AMINO TRANSFERASE 17 U/L (14-36); BILIRUBIN,DIRECT 0.4 mg/dL (0.0-0.4); BILIRUBIN,TOTAL 0.4 mg/dL (0.2-1.3); BLOOD UREA NITROGEN 35 mg/dL (7-20); CALCIUM 9.1 mg/dL (8.4-10.2); CARBON DIOXIDE 27 mmol/L (22-30); CHLORIDE 109 mmol/L (98-107); GLUCOSE 175 mg/dL (75-110); POTASSIUM 3.6 mmol/L (3.6-5.0); SODIUM 144.6 mmol/L (137-145)
[2018-03-23] MEDS ORDERED: LEVALBUTEROL HCL NEB 0.63 MG/3 ML AMPUL NEB SCH ×2 (06:00)
[2018-03-23 06:21] LABS: ABSOLUTE MONOCYTES # (MANUAL) 0.4 10^3/uL (0.1-1.4); ABSOLUTE NEUTROPHILS# (MANUAL) 11.1 10^3/uL (1.7-8.2); BAND NEUTROPHILS % (MANUAL) 6 % (3-5); BASOPHILS % (MANUAL) 0 % (0-2); EOSINOPHILS % (MANUAL) 0 % (0-6); LYMPHOCYTES % (MANUAL) 8 % (13-45); MONOCYTES % (MANUAL) 3 % (3-13); MYELOCYTES % (MANUAL) 3 % (0); SEGMENTED NEUTROPHILS % (MAN) 80 % (42-78); TOTAL CELLS COUNTED 100
[2018-03-23 06:23] LABS: POLYCHROMASIA SLIGHT
[2018-03-23 06:24] LABS: ANISOCYTOSIS 2+; HYPOCHROMASIA 2+; OVALOCYTES 1+; PLATELET COMMENT ADEQUATE; TEAR DROP CELLS 1+
[2018-03-23] MEDS: BUDESONIDE NEB 0.5 MG/2 ML AMPUL NEB SCH ×2 (07:47→19:41)
[2018-03-23] MEDS: LEVALBUTEROL HCL NEB 0.63 MG/3 ML AMPUL NEB SCH ×3 (07:47→23:45)
[2018-03-23] MEDS: LEVOFLOXACIN 750 MG/D5W RTU 750 MG/150 ML RTUPB IV SCH (09:57)
[2018-03-23] MEDS: CHOLECALCIFEROL (D3) 1,000 UNIT TABLET PO SCH (09:58)
[2018-03-23] MEDS: LACTOBACILLUS ACIDOPHILUS 250 MG TAB PO SCH (09:58)
[2018-03-23] MEDS: CYANOCOBALAMIN (VITAMIN B-12) 1,000 MCG TABLET PO SCH (09:58)
[2018-03-23] MEDS: FENOFIBRATE NANOCRYSTALLIZED 145 MG TABLET PO SCH (10:00)
[2018-03-23] MEDS ORDERED: BUDESONIDE NEB 0.5 MG/2 ML AMPUL NEB SCH (10:00)
[2018-03-23] MEDS ORDERED: LANSOPRAZOLE 15 MG TAB.RAP.DR PO SCH (10:00)
[2018-03-23] MEDS: GABAPENTIN 400 MG CAPSULE PO SCH ×3 (10:00→17:01)
[2018-03-23] MEDS: DRONEDARONE HYDROCHLORIDE 400 MG TABLET PO SCH ×2 (10:01→17:03)
[2018-03-23] MEDS: DILTIAZEM HCL 240 MG CAPSULE.CR PO SCH ×2 (10:02→17:00)
[2018-03-23] MEDS: HUM INSULIN NPH/REG INSULIN HM 100 UNIT/1 ML 3 ML SUBCUT SCH ×2 (10:02→21:57)
[2018-03-23] MEDS: CALCIUM CARBONATE 500 MG TABLET PO SCH (10:03)
[2018-03-23] MEDS: APIXABAN 5 MG TABLET PO SCH ×2 (10:03→21:17)
[2018-03-23] MEDS: LOSARTAN POTASSIUM 50 MG TABLET PO SCH (10:03)
[2018-03-23] MEDS: FERROUS SULFATE 325 MG TABLET PO SCH (10:04)
[2018-03-23] MEDS ORDERED: DEXTROSE 40% GEL 15 GM TUBE PO PRN (12:13)
[2018-03-23] MEDS ORDERED: GLUCAGON,HUMAN RECOMB 1 MG INJ IM PRN (12:13)
[2018-03-23] MEDS ORDERED: DEXTROSE 50%-WATER SYRINGE 12.5 GM/25 ML DOSE IV PRN (12:13)
[2018-03-23] MEDS ORDERED: DEXTROSE 40% GEL 15 GM TUBE X 2 PO PRN (12:13)
[2018-03-23] MEDS ORDERED: DEXTROSE 50%-WATER SYRINGE 25 GM/50 ML DOSE IV PRN (12:13)
--- NOTE | 2018-03-23 12:13 | PDOC H&P ---
History of Present Illness Admission Date/PCP: 03/22/18 23:22 KEILY CHRISTIANSON MD History of Present Illness: JESSY PARKER is a 77 year old female, she has multiple comorbid conditions including chronic obstructive pulmonary disease, chronic respiratory failure on home oxygen, [place] disease, she came to the emergency room last night for evaluation of altered mental status, she was confused, family said she was trying to hook the oxygen tubing to waistline belt, she was acting out of character, she history of pneumonia and UTIs, chronically on prednisone 20 mg p.o. twice daily, on anticoagulant Eliquis because of atrial fibrillation. In the emergency room she was evaluated, she was found to have leukocytosis, the chest x-ray suggests pneumonia. Patient is well-known to me from previous encounters, CT chest without contrast was done, it showed moderate opacity in the right lower lobe due to pneumonia, it also showed moderate scoliotic curvature with severe disease anterior vertebral wedging was well compared to prior report from November 2017. She has a history of osteoporotic compression fracture of the vertebrae, she recently a CT PET scan of the lung for evaluation of pulmonary solitary nodule, which was negative for neoplasm. ABG on FiO2 2 L pH 7.48, PO2 79.7 bicarbonate 24.8 PCO2 34.5. It was stated that patient was confused when she came to the emergency room but when I saw her on the floor, she was oriented, she answers questions appropriately, she has extensive lower extremity bruises she said that is from the dog, she is on blood thinner she has a dog that scratches her legs leaving bruises behind, she is a DNR status. She has multiple comorbid conditions and chronic ill health Past Medical History Cardiac Medical History: Reports: Atrial Fibrillation, Congestive Heart Failure , Coronary Artery Disease, Hyperlipidema, Hypertension Pulmonary Medical History: Reports: Asthma, Bronchitis, Pneumonia Endocrine Medical History: Reports: Diabetes Mellitus Type 2 GI Medical History: Reports: Gastroesophageal Reflux Disease, Hiatal Hernia, Ulcerative Colitis Musculoskeltal Medical History: Reports: Arthritis Psychiatric Medical History: Reports: Depression Hematology: Reports: Anemia Infectious Medical History: Reports: Methicillin-Resistant Staph Aureus Past Surgical History Past Surgical History: Reports: Appendectomy, Other - History of right hemicolectomy, questionable history of ulcerative colitis. Social History Smoking Status: Former Smoker Frequency of Alcohol Use: None Hx Recreational Drug Use: No Drugs: None Hx Prescription Drug Abuse: No - Advance Directive Resuscitation Status: Do Not Resuscitate Family History Family History: CAD, Hyperlipidemia, Hypertension Parental Family History Reviewed: Yes Children Family History Reviewed: Yes Sibling(s) Family History Reviewed.: Yes Medication/Allergy Home Medications: Apixaban [Eliquis] 5 mg PO Q12 03/22/18 Budesonide 0.5 mg NEB BID 03/22/18 Calcium Carbonate [Calcium] 600 mg PO DAILY 03/22/18 Cholecalciferol (Vitamin D3) [Vitamin D3 1000 Unit Tablet] 1,000 unit PO DAILY 03/22/18 Digoxin [Lanoxin 0.125 mg Tablet] 0.125 mg PO MOWEFR@1000 03/22/18 Diltiazem HCl [Cardizem Cd 240 mg Capsule.cr] 240 mg PO Q12 03/22/18 Dronedarone Hydrochloride [Multaq 400 Mg Tablet] 400 mg PO BID 03/22/18 Fenofibrate Nanocrystallized [Fenofibrate] 145 mg PO DAILY 03/22/18 Ferrous Sulfate [Ferosul] 325 mg PO DAILY 03/22/18 Furosemide [Lasix] 40 mg PO BID 03/22/18 Gabapentin 800 mg PO TID 03/22/18 Hum Insulin NPH/Reg Insulin Hm [Novolin 70-30 100 Unit/Ml Vial] 15 unit SQ QHS 03/22/18 Hum Insulin NPH/Reg Insulin Hm [Novolin 70-30 100 Unit/Ml Vial] 30 unit SQ DAILY 03/22/18 Lactobacillus Acidophilus [Acidophilus] 1 tab PO DAILY 03/22/18 Levalbuterol HCl [Xopenex Neb 0.63 mg/3 ml Ampul] 0.63 mg NEB Q8H 03/22/18 Levalbuterol Tartrate [Xopenex Hfa] 1 puff IH Q4HP PRN 03/22/18 Losartan Potassium 100 mg PO DAILY 03/22/18 Omeprazole 20 mg PO BID 03/22/18 Potassium Chloride [Klor-Con 10] 10 meq PO DAILY 03/22/18 Prednisone 10 mg PO BID 03/22/18 Cyanocobalamin (Vitamin B-12) [Vitamin B-12 100 mcg Tablet] 100 mcg PO DAILY 07/31 Latanoprost [Xalatan 0.005% Oph Soln 2.5 ml] 1 drop OU QHS 03/23/18 Allergies/Adverse Reactions: aspirin [Aspirin] Allergy (Verified 03/22/18 23:03) colchicine Allergy (Verified 03/22/18 23:03) iodine Allergy (Verified 03/22/18 23:03) Penicillins Allergy (Verified 03/22/18 23:03) Hives shellfish derived Allergy (Verified 03/22/18 23:03) Review of Systems Constitutional: ABSENT: chills, fever(s), headache(s), weight gain, weight loss Eyes: ABSENT: visual disturbances Ears: ABSENT: hearing changes Cardiovascular: PRESENT: dyspnea on exertion Respiratory: ABSENT: cough, hemoptysis Gastrointestinal: ABSENT: abdominal pain, constipation, diarrhea, hematemesis, hematochezia, nausea, vomiting Genitourinary: ABSENT: dysuria, hematuria Musculoskeletal: ABSENT: joint swelling Integumentary: ABSENT: rash, wounds Neurological: ABSENT: abnormal gait, abnormal speech, confusion, dizziness, focal weakness, syncope Psychiatric: ABSENT: anxiety, depression, homidical ideation, suicidal ideation Endocrine: ABSENT: cold intolerance, heat intolerance, menstrual abnormalities, polydipsia, polyuria Hematologic/Lymphatic: ABSENT: easy bleeding, easy bruising, lymphadenopathy Physical Exam Vital Signs: Temp Pulse Resp BP Pulse Ox 98.0 F 76 15 128/45 H 100 03/23/18 07:58 03/23/18 07:58 03/23/18 07:58 03/23/18 07:58 03/23/18 07:58 Intake & Output 03/22/18 03/23/18 03/24/18 06:59 06:59 06:59 Intake Total 264 Balance 264 General appearance: PRESENT: mild distress Head exam: PRESENT: atraumatic, normocephalic Eye exam: PRESENT: PERRLA Ear exam: PRESENT: normal external ear exam Mouth exam: PRESENT: moist, tongue midline Neck exam: PRESENT: full ROM Respiratory exam: PRESENT: decreased breath sounds - Decreased breath sounds on the right lower lung field Cardiovascular exam: PRESENT: irregular rhythm, RRR, +S1, +S2 GI/Abdominal exam: PRESENT: normal bowel sounds, soft Rectal exam: PRESENT: deferred Musculoskeletal exam: PRESENT: other - There is scoliosis of the thoracic spine Neurological exam: PRESENT: alert, CN II-XII grossly intact Psychiatric exam: PRESENT: appropriate affect, normal mood Skin exam: PRESENT: abrasion Results Laboratory Results: 03/23/18 04:16 03/23/18 04:16 03/23/18 03/23/18 03/23/18 00:23 00:46 04:16 WBC 12.5 H RBC 3.00 L Hgb 8.6 L D Hct 26.1 L MCV 87 MCH 28.8 MCHC 33.1 RDW 18.8 H Plt Count 204 Seg Neutrophils % Not Reportable Lymphocytes % Not Reportable Monocytes % Not Reportable Eosinophils % Not Reportable Basophils % Not Reportable Absolute Neutrophils Not Reportable Absolute Lymphocytes Not Reportable Absolute Monocytes Not Reportable Absolute Eosinophils Not Reportable Absolute Basophils Not Reportable Carbonic Acid 1.04 L HCO3/H2CO3 Ratio 23:1 ABG pH 7.48 H ABG pCO2 34.5 L ABG pO2 79.7 L ABG HCO3 24.8 ABG O2 Saturation 96.5 ABG Base Excess 1.3 FiO2 2L Sodium Potassium Chloride Carbon Dioxide Anion Gap BUN Creatinine Est GFR ( Amer) Est GFR (Non-Af Amer) Glucose Calcium Total Bilirubin AST ALT Alkaline Phosphatase C-Reactive Protein 73.2 H Total Protein Albumin 03/23/18 04:16 WBC RBC Hgb Hct MCV MCH MCHC RDW Plt Count Seg Neutrophils % Lymphocytes % Monocytes % Eosinophils % Basophils % Absolute Neutrophils Absolute Lymphocytes Absolute Monocytes Absolute Eosinophils Absolute Basophils Carbonic Acid HCO3/H2CO3 Ratio ABG pH ABG pCO2 ABG pO2 ABG HCO3 ABG O2 Saturation ABG Base Excess FiO2 Sodium 144.6 Potassium 3.6 Chloride 109 H Carbon Dioxide 27 Anion Gap 9 BUN 35 H Creatinine 1.13 Est GFR ( Amer) 56 L Est GFR (Non-Af Amer) 47 L Glucose 175 H Calcium 9.1 Total Bilirubin 0.4 AST 17 ALT 22 Alkaline Phosphatase 60 C-Reactive Protein Total Protein 5.0 L Albumin 2.8 L 03/23/18 00:46 Creatine Kinase 30 Impressions: Chest X-Ray 03/22/18 21:13 IMPRESSION: Bibasilar airspace opacities, may represent atelectasis or pneumonia. Head CT 03/22/18 21:22 IMPRESSION: No acute intracranial hemorrhage or acute territorial infarct. Mild chronic changes of atrophy and microvascular ischemia. EVIDENCE OF ACUTE STROKE: NO. Assessment & Plan - Diagnosis (1) Right lower lobe pneumonia Qualifiers: Pneumonia type: due to unspecified organism Qualified Code(s): J18.1 - Lobar pneumonia, unspecified organism Is this a current diagnosis for this admission?: Yes Plan: She has right lower lobe pneumonia, she is on supplemental oxygen at 2 L, the oxygen saturation is above 90 on 2 L no need for noninvasive ventilation at this time, history of allergy to penicillin, history of MRSA pneumonia, history of gram-negative organisms pneumonia, she will empirically be treated with IV Levaquin and aztreonam (2) [place] disease Is this a current diagnosis for this admission?: Yes Plan: She is chronically on prednisone, she will be treated with stress dose hydrocortisone 100 mg IV every 8 hours (3) Chronic atrial fibrillation Is this a current diagnosis for this admission?: Yes Plan: She has chronic atrial fibrillation, she would continue anticoagulation with Eliquis (4) COPD (chronic obstructive pulmonary disease) Qualifiers: COPD type: unspecified COPD Qualified Code(s): J44.9 - Chronic obstructive pulmonary disease, unspecified Is this a current diagnosis for this admission?: Yes
[2018-03-23] MEDS ORDERED: VANCOMYCIN HCL 0 MG in DEXTROSE 5%-WATER 250 ML IV NR (16:00)
[2018-03-23] MEDS: ACETAMINOPHEN 325 MG TABLET PO PRN (16:56)
[2018-03-23] MEDS ORDERED: VANCOMYCIN HCL INJ 500 MG VIAL ONE (17:08)
[2018-03-23] MEDS ORDERED: (PENDING PHARMACY ID) (Cyanocobalamin (Vitamin B-12) [Vitamin B-12 100 Mcg Tablet] 100 MCG PO SCH (17:45)
[2018-03-23] MEDS ORDERED: POTASSIUM CHLORIDE 10 MEQ TABLET.SA PO ONE (18:00)
[2018-03-23] MEDS: VANCOMYCIN HCL 500 MG in DEXTROSE 5%-WATER 100 ML IV SCH (18:09)
[2018-03-23] MEDS: INSULIN LISPRO 100 UNIT/ML 3 ML VIAL SUBCUT PRN (21:54)
[2018-03-23] MEDS: LATANOPROST 0.005% OPH SOLN 2.5 ML OU SCH (21:57)
[2018-03-24] LABS: APPEARANCE,URINE SLIGHTLY-CLOUDY; BILIRUBIN,URINE NEGATIVE (NEGATIVE); COLOR,URINE YELLOW; GLUCOSE, URINE >=500 mg/dL (NEGATIVE); KETONES,URINE NEGATIVE (NEGATIVE); LEUKOCYTE ESTERASE,URINE SMALL (NEGATIVE); NITRITE,URINE NEGATIVE (NEGATIVE); PROTEIN,URINE 30 mg/dL (NEGATIVE); URINE SPECIFIC GRAVITY 1.016; UROBILINOGEN,URINE NEGATIVE mg/dL (<2.0)
[2018-03-24] MEDS: HYDROCORTISONE SOD SUCCINATE INJ/PF 100 MG/2 ML SDV IV SCH ×3 (05:28→21:20)
[2018-03-24] MEDS: AZTREONAM 1 GM in DEXTROSE 5%-WATER 50 ML IV SCH ×3 (05:28→21:20)
[2018-03-24 05:39] LABS: HEMATOCRIT 24.5 % (36.0-47.0); HEMOGLOBIN 8.2 g/dL (12.0-15.5); MEAN CORPUSCULAR HEMOGLOBIN 29.3 pg (27.0-33.4); MEAN CORPUSCULAR HGB CONC 33.6 g/dL (32.0-36.0); MEAN CORPUSCULAR VOLUME 87 fl (80-97); PLATELET COUNT 177 10^3/uL (150-450); RED BLOOD COUNT 2.81 10^6/uL (3.72-5.28); RED CELL DISTRIBUTION WIDTH 18.8 % (11.5-14.0); WHITE BLOOD COUNT 12.5 10^3/uL (4.0-10.5)
[2018-03-24 05:57] LABS: ALANINE AMINOTRANSFERASE 20 U/L (9-52); ALBUMIN 2.7 g/dL (3.5-5.0); ALKALINE PHOSPHATASE 53 U/L (38-126); ANION GAP 12 (5-19); ASPARTATE AMINO TRANSFERASE 12 U/L (14-36); BILIRUBIN,DIRECT 0.2 mg/dL (0.0-0.4); BILIRUBIN,TOTAL 0.2 mg/dL (0.2-1.3); BLOOD UREA NITROGEN 35 mg/dL (7-20); CALCIUM 8.8 mg/dL (8.4-10.2); CARBON DIOXIDE 23 mmol/L (22-30); CHLORIDE 107 mmol/L (98-107); GLUCOSE 169 mg/dL (75-110); POTASSIUM 3.6 mmol/L (3.6-5.0); SODIUM 142.4 mmol/L (137-145); TOTAL PROTEIN 4.9 g/dL (6.3-8.2)
[2018-03-24 06:39] LABS: ABSOLUTE LYMPHOCYTES# (MANUAL) 1.3 10^3/uL (0.5-4.7); ABSOLUTE MONOCYTES # (MANUAL) 0.6 10^3/uL (0.1-1.4); ABSOLUTE NEUTROPHILS# (MANUAL) 10.6 10^3/uL (1.7-8.2); ANISOCYTOSIS 2+; BASOPHILS % (MANUAL) 0 % (0-2); EOSINOPHILS % (MANUAL) 0 % (0-6); LYMPHOCYTES % (MANUAL) 10 % (13-45); METAMYELOCYTES % (MANUAL) 1 % (0); MONOCYTES % (MANUAL) 5 % (3-13); NUCLEATED RED BLOOD CELLS 1 /100 WBC (0); PLATELET COMMENT ADEQUATE; SEGMENTED NEUTROPHILS % (MAN) 84 % (42-78); TOTAL CELLS COUNTED 100; TOXIC GRANULATION 1+; TOXIC VACUOLATION PRESENT
--- NOTE | 2018-03-24 07:25 | EKG REPORT ---
SEVERITY:- ABNORMAL ECG - SINUS TACHYCARDIA PROBABLE LEFT ATRIAL ABNORMALITY IRBBB AND LPFB : Confirmed by: Toni Cheung MD 24-Mar-2018 07:25:23
[2018-03-24] MEDS: BUDESONIDE NEB 0.5 MG/2 ML AMPUL NEB SCH ×2 (08:05→20:30)
[2018-03-24] MEDS: LEVALBUTEROL HCL NEB 0.63 MG/3 ML AMPUL NEB SCH ×2 (08:05→15:46)
[2018-03-24] MEDS: LEVOFLOXACIN 750 MG/D5W RTU 750 MG/150 ML RTUPB IV SCH (09:49)
[2018-03-24] MEDS: CYANOCOBALAMIN (VITAMIN B-12) 1,000 MCG TABLET PO SCH (09:50)
[2018-03-24] MEDS: DILTIAZEM HCL 240 MG CAPSULE.CR PO SCH ×2 (09:51→21:20)
[2018-03-24] MEDS: FERROUS SULFATE 325 MG TABLET PO SCH (09:51)
[2018-03-24] MEDS: POTASSIUM CHLORIDE 10 MEQ TABLET.SA PO SCH (09:51)
[2018-03-24] MEDS: GABAPENTIN 400 MG CAPSULE PO SCH ×3 (09:51→18:14)
[2018-03-24] MEDS: CALCIUM CARBONATE 500 MG TABLET PO SCH (09:51)
[2018-03-24] MEDS: CHOLECALCIFEROL (D3) 1,000 UNIT TABLET PO SCH (09:53)
[2018-03-24] MEDS: FENOFIBRATE NANOCRYSTALLIZED 145 MG TABLET PO SCH (09:53)
[2018-03-24] MEDS: LOSARTAN POTASSIUM 50 MG TABLET PO SCH (09:53)
[2018-03-24] MEDS: APIXABAN 5 MG TABLET PO SCH ×2 (09:54→21:21)
[2018-03-24] MEDS: HUM INSULIN NPH/REG INSULIN HM 100 UNIT/1 ML 3 ML SUBCUT SCH ×2 (09:54→22:37)
[2018-03-24] MEDS: LACTOBACILLUS ACIDOPHILUS 250 MG TAB PO SCH (09:54)
[2018-03-24] MEDS: DRONEDARONE HYDROCHLORIDE 400 MG TABLET PO SCH ×2 (09:56→18:14)
[2018-03-24] MEDS: INSULIN LISPRO 100 UNIT/ML 3 ML VIAL SUBCUT PRN (13:05)
[2018-03-24] MEDS: VANCOMYCIN HCL 500 MG in DEXTROSE 5%-WATER 100 ML IV SCH (18:14)
[2018-03-24] MEDS: IPRATROPIUM/ALBUTEROL 0.5-2.5 MG/3 ML AMPUL NEB SCH (20:31)
--- NOTE | 2018-03-24 20:57 | PDOC PROGRESS REPORT ---
Subjective Progress Note for:: 03/24/18 Subjective:: Patient was seen by the bedside, she is wheezing today,, she was admitted yesterday for the management of pneumonia. History of COPD Reason For Visit: PNEUMONIA,MULTIPLE CO-MORBID CONDITIONS Physical Exam Vital Signs: Temp Pulse Resp BP Pulse Ox 98.4 F 72 16 105/43 L 95 03/24/18 19:53 03/24/18 20:30 03/24/18 20:30 03/24/18 19:53 03/24/18 20:30 Intake & Output 03/23/18 03/24/18 03/25/18 06:59 06:59 06:59 Intake Total 264 2675 1344 Output Total 300 500 Balance 264 2375 844 Weight 52.2 kg General appearance: PRESENT: mild distress Eye exam: PRESENT: PERRLA Respiratory exam: PRESENT: wheezes Cardiovascular exam: PRESENT: +S1, +S2 GI/Abdominal exam: PRESENT: soft Neurological exam: PRESENT: alert Results Laboratory Results: 03/24/18 04:09 03/24/18 04:09 03/23/18 03/24/18 03/24/18 23:35 04:09 04:09 WBC 12.5 H RBC 2.81 L Hgb 8.2 L Hct 24.5 L MCV 87 MCH 29.3 MCHC 33.6 RDW 18.8 H Plt Count 177 Seg Neutrophils % Not Reportable Lymphocytes % Not Reportable Monocytes % Not Reportable Eosinophils % Not Reportable Basophils % Not Reportable Absolute Neutrophils Not Reportable Absolute Lymphocytes Not Reportable Absolute Monocytes Not Reportable Absolute Eosinophils Not Reportable Absolute Basophils Not Reportable Sodium 142.4 Potassium 3.6 Chloride 107 Carbon Dioxide 23 Anion Gap 12 BUN 35 H Creatinine 1.16 Est GFR ( Amer) 55 L Est GFR (Non-Af Amer) 45 L Glucose 169 H Calcium 8.8 Total Bilirubin 0.2 AST 12 L ALT 20 Alkaline Phosphatase 53 Total Protein 4.9 L Albumin 2.7 L Urine Color YELLOW Urine Appearance SLIGHTLY-CLOUDY Urine pH 5.0 Ur Specific [place] 1.016 Urine Protein 30 H Urine Glucose (UA) >=500 H Urine Ketones NEGATIVE Urine Blood NEGATIVE Urine Nitrite NEGATIVE Ur Leukocyte Esterase SMALL H Urine WBC (Auto) 7 Urine RBC (Auto) 3 03/23/18 00:46 Creatine Kinase 30 Impressions: Chest X-Ray 03/22/18 21:13 IMPRESSION: Bibasilar airspace opacities, may represent atelectasis or pneumonia. Head CT 03/22/18 21:22 IMPRESSION: No acute intracranial hemorrhage or acute territorial infarct. Mild chronic changes of atrophy and microvascular ischemia. EVIDENCE OF ACUTE STROKE: NO. Assessment & Plan - Diagnosis (1) Right lower lobe pneumonia Qualifiers: Pneumonia type: due to unspecified organism Qualified Code(s): J18.1 - Lobar pneumonia, unspecified organism Is this a current diagnosis for this admission?: Yes (2) [place] disease Is this a current diagnosis for this admission?: Yes (3) Chronic atrial fibrillation Is this a current diagnosis for this admission?: Yes (4) COPD (chronic obstructive pulmonary disease) Qualifiers: COPD type: unspecified COPD Qualified Code(s): J44.9 - Chronic obstructive pulmonary disease, unspecified Is this a current diagnosis for this admission?: Yes - Plan Summary Plan Summary: He has gram positive cocci in clusters in blood presently empirically on vancomycin, history of MRSA, start DuoNeb every 4 on a scheduled, continue other treatment
[2018-03-24] MEDS: LATANOPROST 0.005% OPH SOLN 2.5 ML OU SCH (21:20)
[2018-03-25] MEDS: IPRATROPIUM/ALBUTEROL 0.5-2.5 MG/3 ML AMPUL NEB SCH ×6 (00:04→19:25)
[2018-03-25] MEDS: LEVALBUTEROL HCL NEB 0.63 MG/3 ML AMPUL NEB SCH ×3 (00:27→15:39)
[2018-03-25] MEDS: NORMAL SALINE 1000 ML 1,000 ML IV PRN ×2 (03:48→22:21)
[2018-03-25] MEDS: HYDROCORTISONE SOD SUCCINATE INJ/PF 100 MG/2 ML SDV IV SCH ×3 (05:02→22:20)
[2018-03-25] MEDS: LANSOPRAZOLE 15 MG TAB.RAP.DR PO SCH (05:02)
[2018-03-25] MEDS: AZTREONAM 1 GM in DEXTROSE 5%-WATER 50 ML IV SCH (05:05)
[2018-03-25 05:21] LABS: HEMATOCRIT 21.4 % (36.0-47.0); MEAN CORPUSCULAR HEMOGLOBIN 28.9 pg (27.0-33.4); MEAN CORPUSCULAR HGB CONC 33.9 g/dL (32.0-36.0); MEAN CORPUSCULAR VOLUME 85 fl (80-97); PLATELET COUNT 181 10^3/uL (150-450); RED CELL DISTRIBUTION WIDTH 18.4 % (11.5-14.0)
[2018-03-25 05:29] LABS: HEMOGLOBIN 7.2 g/dL (12.0-15.5)
[2018-03-25 05:36] LABS: ALANINE AMINOTRANSFERASE 22 U/L (9-52); ALBUMIN 2.4 g/dL (3.5-5.0); ALKALINE PHOSPHATASE 45 U/L (38-126); ANION GAP 9 (5-19); ASPARTATE AMINO TRANSFERASE 10 U/L (14-36); BLOOD UREA NITROGEN 48 mg/dL (7-20); CALCIUM 8.8 mg/dL (8.4-10.2); CARBON DIOXIDE 21 mmol/L (22-30); CHLORIDE 112 mmol/L (98-107); GLUCOSE 190 mg/dL (75-110); POTASSIUM 3.5 mmol/L (3.6-5.0); SODIUM 142.4 mmol/L (137-145); TOTAL PROTEIN 4.5 g/dL (6.3-8.2)
[2018-03-25 05:44] LABS: BILIRUBIN,TOTAL < 0.1 mg/dL (0.2-1.3)
[2018-03-25 05:56] LABS: ABSOLUTE LYMPHOCYTES# (MANUAL) 0.5 10^3/uL (0.5-4.7); ABSOLUTE NEUTROPHILS# (MANUAL) 7.5 10^3/uL (1.7-8.2); BAND NEUTROPHILS % (MANUAL) 1 % (3-5); BASOPHILS % (MANUAL) 0 % (0-2); EOSINOPHILS % (MANUAL) 0 % (0-6); LYMPHOCYTES % (MANUAL) 6 % (13-45); METAMYELOCYTES % (MANUAL) 2 % (0); MONOCYTES % (MANUAL) 0 % (3-13); SEGMENTED NEUTROPHILS % (MAN) 91 % (42-78); TOTAL CELLS COUNTED 100
[2018-03-25 05:57] LABS: HYPOCHROMASIA 2+
[2018-03-25 05:58] LABS: ANISOCYTOSIS 2+; OVALOCYTES 1+; PLATELET COMMENT ADEQUATE
[2018-03-25] MEDS: BUDESONIDE NEB 0.5 MG/2 ML AMPUL NEB SCH ×2 (07:40→19:25)
[2018-03-25 08:22] LABS: PATH REVIEW PATHOLOGIST REVIEWED
[2018-03-25] MEDS: HUM INSULIN NPH/REG INSULIN HM 100 UNIT/1 ML 3 ML SUBCUT SCH ×2 (09:06→22:20)
[2018-03-25] MEDS: INSULIN LISPRO 100 UNIT/ML 3 ML VIAL SUBCUT PRN ×2 (09:07→12:54)
[2018-03-25] MEDS: CYANOCOBALAMIN (VITAMIN B-12) 1,000 MCG TABLET PO SCH (11:37)
[2018-03-25] MEDS: DRONEDARONE HYDROCHLORIDE 400 MG TABLET PO SCH ×2 (11:37→18:28)
[2018-03-25] MEDS: POTASSIUM CHLORIDE 10 MEQ TABLET.SA PO SCH (11:37)
[2018-03-25] MEDS: CALCIUM CARBONATE 500 MG TABLET PO SCH (11:38)
[2018-03-25] MEDS: APIXABAN 5 MG TABLET PO SCH ×2 (11:38→22:20)
[2018-03-25] MEDS: FERROUS SULFATE 325 MG TABLET PO SCH (11:38)
[2018-03-25] MEDS: LOSARTAN POTASSIUM 50 MG TABLET PO SCH (11:38)
[2018-03-25] MEDS: FENOFIBRATE NANOCRYSTALLIZED 145 MG TABLET PO SCH (11:39)
[2018-03-25] MEDS: LACTOBACILLUS ACIDOPHILUS 250 MG TAB PO SCH (11:39)
[2018-03-25] MEDS: CHOLECALCIFEROL (D3) 1,000 UNIT TABLET PO SCH (11:39)
[2018-03-25] MEDS: DILTIAZEM HCL 240 MG CAPSULE.CR PO SCH ×2 (11:39→22:20)
[2018-03-25] MEDS: GABAPENTIN 400 MG CAPSULE PO SCH ×3 (11:40→18:28)
--- NOTE | 2018-03-25 12:09 | PDOC PROGRESS REPORT ---
Subjective Progress Note for:: 03/25/18 Subjective:: Patient seen by the bedside, the blood culture grew MRSA, presently on vancomycin that was started empirically, will de-escalate antibiotic, DC Levaquin and aztreonam. Reason For Visit: PNEUMONIA,MULTIPLE CO-MORBID CONDITIONS Physical Exam Vital Signs: Temp Pulse Resp BP Pulse Ox 98.6 F 72 18 121/42 L 96 03/25/18 07:35 03/25/18 07:43 03/25/18 07:43 03/25/18 07:35 03/25/18 07:43 Intake & Output 03/24/18 03/25/18 03/26/18 06:59 06:59 06:59 Intake Total 2675 2708 Output Total 300 500 Balance 2375 2208 Weight 52.2 kg 54 kg General appearance: PRESENT: mild distress Respiratory exam: PRESENT: wheezes Cardiovascular exam: PRESENT: +S1, +S2 GI/Abdominal exam: PRESENT: soft Neurological exam: PRESENT: alert Results Laboratory Results: 03/25/18 04:26 03/25/18 04:26 03/25/18 03/25/18 04:26 04:26 WBC 8.0 RBC 2.50 L Hgb 7.2 L Hct 21.4 L MCV 85 MCH 28.9 MCHC 33.9 RDW 18.4 H Plt Count 181 Seg Neutrophils % Not Reportable Lymphocytes % Not Reportable Monocytes % Not Reportable Eosinophils % Not Reportable Basophils % Not Reportable Absolute Neutrophils Not Reportable Absolute Lymphocytes Not Reportable Absolute Monocytes Not Reportable Absolute Eosinophils Not Reportable Absolute Basophils Not Reportable Sodium 142.4 Potassium 3.5 L Chloride 112 H Carbon Dioxide 21 L Anion Gap 9 BUN 48 H Creatinine 1.28 H Est GFR ( Amer) 49 L Est GFR (Non-Af Amer) 40 L Glucose 190 H Calcium 8.8 Total Bilirubin < 0.1 L AST 10 L ALT 22 Alkaline Phosphatase 45 Total Protein 4.5 L Albumin 2.4 L 03/23/18 00:46 Creatine Kinase 30 Impressions: Chest X-Ray 03/22/18 21:13 IMPRESSION: Bibasilar airspace opacities, may represent atelectasis or pneumonia. Head CT 03/22/18 21:22 IMPRESSION: No acute intracranial hemorrhage or acute territorial infarct. Mild chronic changes of atrophy and microvascular ischemia. EVIDENCE OF ACUTE STROKE: NO. Assessment & Plan - Diagnosis (1) Right lower lobe pneumonia Qualifiers: Pneumonia type: due to unspecified organism Qualified Code(s): J18.1 - Lobar pneumonia, unspecified organism Is this a current diagnosis for this admission?: Yes (2) [place] disease Is this a current diagnosis for this admission?: Yes (3) Chronic atrial fibrillation Is this a current diagnosis for this admission?: Yes (4) COPD (chronic obstructive pulmonary disease) Qualifiers: COPD type: unspecified COPD Qualified Code(s): J44.9 - Chronic obstructive pulmonary disease, unspecified Is this a current diagnosis for this admission?: Yes (5) MRSA (methicillin resistant Staphylococcus aureus) septicemia Is this a current diagnosis for this admission?: Yes Plan: Patient presently on IV antibiotic vancomycin, this to be continued (6) Sepsis Qualifiers: Sepsis type: methicillin resistant Staphylococcus aureus Qualified Code(s) : A41.02 - Sepsis due to Methicillin resistant Staphylococcus aureus Is this a current diagnosis for this admission?: Yes (7) Acute kidney injury Is this a current diagnosis for this admission?: Yes Plan: She has acute kidney injury related to sepsis (8) Anemia Qualifiers: Anemia type: unspecified type Qualified Code(s): D64.9 - Anemia, unspecified Is this a current diagnosis for this admission?: Yes Plan: Anemia related to sepsis
--- NOTE | 2018-03-25 15:54 | Progress Note ---
Provider Note Provider Note: ID Consult Note Asked by Pharmacy to review patient's chart. Pt not seen or examined. Reviewed chart including VS, imaging, provider reports, labs. Ms. Bateman is a 77 yo woman with PMH including COPD, chronic steroid use, chronic respiratory failure on home oxygen, vertebral compression fracture and AF on anticoagulation who lives at home and was admitted on 03/22/18 for altered mental status. She admitted to [facility] but denied cough. Her exam was notable for fever up to 102.9F on presentation and decreased breath sounds over R lower lung field. WBC count on admission was 17.9k. CXR was read as showing bibasilar airspace opacities that may represent atelectasis or pneumonia. CT scan of the chest also was read as showing RLL opacity. Blood cultures were drawn on that later yielded growth of MRSA from 1 bottle in 1 set. The other set of BCx on 03/22 has remained without growth. She has reported an allergy to penicillin in the past. She has been empirically treated with aztreonam, Levaquin, and vancomycin. During her hospitalization, she has remained on 2 L supplemental O2, has been without fever, and has had improvement in leukocytosis. Impression/Recommendations Pt has been diagnosed with sepsis due to MRSA bacteremia, suspected to be secondary to MRSA pneumonia based on presence of RLL infiltrate. - Agree with approach taken by Dr Khan in continuing vancomycin, discontinuing aztreonam and Levaquin. - Recommend repeating blood cultures to document that the patient has cleared the bacteremia - TTE to screen for infective endocarditis is recommended for all patients with Staph aureus bacteremia - Considering the patient's history of compression fracture and the propensity of Staph aureus to disseminate hematogenously to areas with prior abnormalities , the possibility of vertebral osteomyelitis has to be kept in mind; there should be a low threshold for pursuing an MRI of the spine to evaluate for vertebral osteomyelitis or discitis if the patient has complaints of worsened back pain or point spinal tenderness on exam that is worse than her baseline - Duration of IV vancomycin is dependent on whether the patient clears the bacteremia on repeat blood cultures, whether there is evidence of endocarditis or other metastatic disease Mauricio Barragan MD [facility] Infectious Diseases pager [phone]
[2018-03-25] MEDS: VANCOMYCIN HCL 500 MG in DEXTROSE 5%-WATER 100 ML IV SCH (18:28)
[2018-03-25] MEDS: GUAIFENESIN 600 MG TABLET.SA PO SCH (22:20)
[2018-03-25] MEDS: LATANOPROST 0.005% OPH SOLN 2.5 ML OU SCH (22:30)
[2018-03-26] MEDS: IPRATROPIUM/ALBUTEROL 0.5-2.5 MG/3 ML AMPUL NEB SCH ×5 (00:21→20:01)
[2018-03-26] MEDS: LEVALBUTEROL HCL NEB 0.63 MG/3 ML AMPUL NEB SCH ×2 (00:21→08:14)
[2018-03-26] MEDS: LANSOPRAZOLE 15 MG TAB.RAP.DR PO SCH (05:26)
[2018-03-26] MEDS: HYDROCORTISONE SOD SUCCINATE INJ/PF 100 MG/2 ML SDV IV SCH ×3 (05:28→22:41)
[2018-03-26] MEDS: BUDESONIDE NEB 0.5 MG/2 ML AMPUL NEB SCH ×2 (07:56→20:01)
[2018-03-26] MEDS: ACETAMINOPHEN 325 MG TABLET PO PRN ×2 (08:31→12:50)
[2018-03-26 09:34] LABS: ARTERIAL BLOOD BASE EXCESS -1.3 mmol/L; ARTERIAL BLOOD H2CO3 0.81 mmol/L (1.05-1.35); ARTERIAL BLOOD HCO3 21.2 mmol/L (20-26); ARTERIAL BLOOD O2 SATURATION 96.2 % (94-98); ARTERIAL BLOOD PCO2 26.9 mmHg (35-45); ARTERIAL BLOOD PH 7.52 (7.35-7.45); ARTERIAL BLOOD PO2 72.9 mmHg (80-100); ARTERIAL BLOOD TOTAL CO2 22.1 mmol/L (21-25)
[2018-03-26 09:40] LABS: ARTERIAL BLOOD FIO2 35%
[2018-03-26] MEDS ORDERED: LEVOFLOXACIN 750 MG/D5W RTU 750 MG/150 ML RTUPB IV SCH (10:00)
[2018-03-26] MEDS: DILTIAZEM HCL 240 MG CAPSULE.CR PO SCH ×2 (10:55→22:41)
[2018-03-26] MEDS: APIXABAN 5 MG TABLET PO SCH ×2 (10:55→22:42)
[2018-03-26] MEDS: GUAIFENESIN 600 MG TABLET.SA PO SCH ×2 (10:55→22:42)
[2018-03-26] MEDS: GABAPENTIN 400 MG CAPSULE PO SCH ×3 (10:56→17:56)
[2018-03-26] MEDS: LACTOBACILLUS ACIDOPHILUS 250 MG TAB PO SCH (10:56)
[2018-03-26] MEDS: POTASSIUM CHLORIDE 10 MEQ TABLET.SA PO SCH (10:56)
[2018-03-26] MEDS: CHOLECALCIFEROL (D3) 1,000 UNIT TABLET PO SCH (10:56)
[2018-03-26] MEDS: LOSARTAN POTASSIUM 50 MG TABLET PO SCH (10:56)
[2018-03-26] MEDS: CYANOCOBALAMIN (VITAMIN B-12) 1,000 MCG TABLET PO SCH (10:56)
[2018-03-26] MEDS: CALCIUM CARBONATE 500 MG TABLET PO SCH (10:57)
[2018-03-26] MEDS: FERROUS SULFATE 325 MG TABLET PO SCH (10:57)
[2018-03-26] MEDS: FENOFIBRATE NANOCRYSTALLIZED 145 MG TABLET PO SCH (10:58)
[2018-03-26] MEDS: HUM INSULIN NPH/REG INSULIN HM 100 UNIT/1 ML 3 ML SUBCUT SCH ×2 (10:58→22:45)
[2018-03-26] MEDS: DRONEDARONE HYDROCHLORIDE 400 MG TABLET PO SCH ×2 (10:59→17:56)
[2018-03-26] MEDS: INSULIN LISPRO 100 UNIT/ML 3 ML VIAL SUBCUT PRN (12:41)
--- NOTE | 2018-03-26 13:20 | PDOC CONSULTATION ---
Consultation Consult Date: 03/26/18 Attending physician:: YANA ALVAREZ Consult reason:: pna History of Present Illness Admission Date/PCP: 03/22/18 23:22 KEILY CHRISTIANSON MD History of Present Illness: JESSY PARKER is a 77 year old female,Well-known to [facility]. She presented to the emergency room by with family for altered mental status however subsequent blood gases did not show hypercapnia or hypoxia subsequent chest x-ray did show a right lower lobe pneumonia with very large hiatal hernia. She is currently very weak and additional history is difficult to elicit. Past Medical History Cardiac Medical History: Reports: Atrial Fibrillation, Congestive Heart Failure , Coronary Artery Disease, Hyperlipidema, Hypertension Pulmonary Medical History: Reports: Asthma, Bronchitis, Pneumonia, Sleep Apnea EENT Medical History: Denies: Nose, Throat Neurological Medical History: Denies: Migraine, Multiple Sclerosis, Seizures Endocrine Medical History: Reports: Diabetes Mellitus Type 2, Obesity Renal/ Medical History: Denies: End Stage Renal Disease GI Medical History: Reports: Gastroesophageal Reflux Disease, Hiatal Hernia, Ulcerative Colitis Musculoskeltal Medical History: Reports: Arthritis Skin Medical History: Denies: Psoriasis Psychiatric Medical History: Reports: Depression Traumatic Medical History: Denies: Traumatic Brain Injury Hematology: Reports: Anemia Infectious Medical History: Reports: Methicillin-Resistant Staph Aureus Past Surgical History Past Surgical History: Reports: Appendectomy, Other - History of right hemicolectomy, questionable history of ulcerative colitis. Social History Information Source: [facility] Records Smoking Status: Former Smoker Frequency of Alcohol Use: None Hx Recreational Drug Use: No Drugs: None Hx Prescription Drug Abuse: No - Advance Directive Resuscitation Status: Do Not Resuscitate Family History Family History: CAD, Hyperlipidemia, Hypertension Parental Family History Reviewed: No Children Family History Reviewed: No Sibling(s) Family History Reviewed.: No Medication/Allergy Home Medications: Apixaban [Eliquis] 5 mg PO Q12 03/22/18 Budesonide 0.5 mg NEB BID 03/22/18 Calcium Carbonate [Calcium] 600 mg PO MEALS 03/22/18 Cholecalciferol (Vitamin D3) [Vitamin D3 1000 Unit Tablet] 1,000 unit PO DAILY 03/22/18 Digoxin [Lanoxin 0.125 mg Tablet] 0.125 mg PO MOWEFR@1000 03/22/18 Diltiazem HCl [Cardizem Cd 240 mg Capsule.cr] 240 mg PO Q12 03/22/18 Dronedarone Hydrochloride [Multaq 400 Mg Tablet] 400 mg PO BID 03/22/18 Fenofibrate Nanocrystallized [Fenofibrate] 145 mg PO DAILY 03/22/18 Ferrous Sulfate [Ferosul] 325 mg PO DAILY 03/22/18 Furosemide [Lasix] 40 mg PO DAILY 03/22/18 Gabapentin 800 mg PO TID 03/22/18 Hum Insulin NPH/Reg Insulin Hm [Novolin 70-30 100 Unit/Ml Vial] 15 unit SQ QHS 03/22/18 Hum Insulin NPH/Reg Insulin Hm [Novolin 70-30 100 Unit/Ml Vial] 30 unit SQ DAILY 03/22/18 Lactobacillus Acidophilus [Acidophilus] 1 tab PO DAILY 03/22/18 Levalbuterol HCl [Xopenex Neb 0.63 mg/3 ml Ampul] 0.63 mg NEB Q8H 03/22/18 Levalbuterol Tartrate [Xopenex Hfa] 1 puff IH Q4HP PRN 03/22/18 Losartan Potassium 100 mg PO DAILY 03/22/18 Omeprazole 20 mg PO BID 03/22/18 Cyanocobalamin (Vitamin B-12) [Vitamin B-12 100 mcg Tablet] 100 mcg PO DAILY 07/31 Latanoprost [Xalatan 0.005% Oph Soln 2.5 ml] 1 drop OU QHS 03/23/18 Acetylcysteine [Mucomist 10% Neb 400 mg/4 ml Vial] 200 mg IH BID 03/25/18 Prednisone [Deltasone 20 mg Tablet] 20 mg PO DAILY 03/25/18 Allergies/Adverse Reactions: aspirin [Aspirin] Allergy (Verified 03/22/18 23:03) colchicine Allergy (Verified 03/22/18 23:03) iodine Allergy (Verified 03/22/18 23:03) Penicillins Allergy (Verified 03/22/18 23:03) Hives shellfish derived Allergy (Verified 03/22/18 23:03) Review of Systems ROS unobtainable: Due to mental status Physical Exam Vital Signs: Temp Pulse Resp BP Pulse Ox 99.0 F 82 26 H 122/99 H 92 03/26/18 03:53 03/26/18 08:00 03/26/18 08:00 03/26/18 03:53 03/26/18 08:00 Intake & Output 03/25/18 03/26/18 03/27/18 06:59 06:59 06:59 Intake Total 2708 2423 Output Total 500 Balance 2208 2423 Weight 54 kg 55.6 kg General appearance: PRESENT: no acute distress, disheveled, morbidly obese Head exam: PRESENT: atraumatic, normocephalic Eye exam: PRESENT: conjunctiva pale, EOMI. ABSENT: nystagmus, periorbital swelling, scleral icterus Mouth exam: PRESENT: dry mucosa, neck supple, tongue midline Neck exam: ABSENT: carotid bruit, JVD, lymphadenopathy, thyromegaly, tracheal deviation, tracheostomy Respiratory exam: PRESENT: decreased breath sounds, prolonged expiratory phas, rales, rhonchi, unlabored. ABSENT: retraction, stridor Cardiovascular exam: PRESENT: RRR, +S1, +S2, systolic murmur Pulses: PRESENT: normal radial pulses GI/Abdominal exam: PRESENT: diminished bowel sounds, soft Extremities exam: ABSENT: calf tenderness, clubbing, joint swelling Musculoskeletal exam: ABSENT: ambulatory, deformity, dislocation Neurological exam: PRESENT: awake, oriented to person, oriented to place Skin exam: PRESENT: dry, warm Results Laboratory Results: 03/25/18 04:26 03/25/18 04:26 03/23/18 00:46 Creatine Kinase 30 Impressions: Chest X-Ray 03/22/18 21:13 IMPRESSION: Bibasilar airspace opacities, may represent atelectasis or pneumonia. Head CT 03/22/18 21:22 IMPRESSION: No acute intracranial hemorrhage or acute territorial infarct. Mild chronic changes of atrophy and microvascular ischemia. EVIDENCE OF ACUTE STROKE: NO. Assessment & Plan - Diagnosis (1) Right lower lobe pneumonia Qualifiers: Pneumonia type: due to unspecified organism Qualified Code(s): J18.1 - Lobar pneumonia, unspecified organism Is this a current diagnosis for this admission?: Yes Plan: Radiographically evident no sputum cultures thus far positive for pathogens Chest physiotherapy and [facility]- All tests 24 hr 03/22/18 03/23/18 03/24/18 21:15 04:16 04:09 WBC 17.9 H 12.5 H 12.5 H 03/25/18 04:26 WBC 8.0 03/26/18 12:45 Gram Stain - Pending Sputum Sputum Culture - Pending 03/22/18 21:15 Blood Culture - Final Blood Mrsa (Meth Resis Staph Aureus) (2) Hiatal hernia with GERD Is this a current diagnosis for this admission?: Yes Plan: We will consult surgeon evaluate for possible laparoscopic Júnior when patient is more stable (3) Chronic atrial fibrillation Is this a current diagnosis for this admission?: Yes Plan: Appears to be stable at this time
[2018-03-26] MEDS: NORMAL SALINE 1000 ML 1,000 ML IV PRN (15:34)
[2018-03-26] MEDS: VANCOMYCIN HCL 500 MG in DEXTROSE 5%-WATER 100 ML IV SCH (18:22)
[2018-03-26 18:28] LABS: VANCOMYCIN,TROUGH 6.9 ug/mL (5.0-20.0)
--- NOTE | 2018-03-26 20:17 | PDOC PROGRESS REPORT ---
Subjective Progress Note for:: 03/26/18 Subjective:: Patient was seen by the bedside she continues to require noninvasive ventilation with BiPAP machine, she seems to be breathing better on the machine there is reduced work of breathing, she had MRSA septicemia, 2D echo to be ordered, she was seen by pulmonary ,DR Patino per family request , she has less wheeze today Reason For Visit: PNEUMONIA,MULTIPLE CO-MORBID CONDITIONS Physical Exam Vital Signs: Temp Pulse Resp BP Pulse Ox 99.0 F 70 20 137/46 H 97 03/26/18 16:20 03/26/18 19:00 03/26/18 16:20 03/26/18 16:20 03/26/18 16:20 Intake & Output 03/25/18 03/26/18 03/27/18 06:59 06:59 06:59 Intake Total 2708 2423 1350 Output Total 500 Balance 2208 2423 1350 Weight 54 kg 55.6 kg General appearance: PRESENT: mild distress Eye exam: PRESENT: PERRLA Respiratory exam: PRESENT: wheezes Neurological exam: PRESENT: alert Results Laboratory Results: 03/25/18 04:26 03/26/18 17:43 03/26/18 03/26/18 09:24 17:43 Carbonic Acid 0.81 L HCO3/H2CO3 Ratio 26:1 ABG pH 7.52 H ABG pCO2 26.9 L ABG pO2 72.9 L ABG HCO3 21.2 ABG O2 Saturation 96.2 ABG Base Excess -1.3 FiO2 35% Creatinine 0.88 Est GFR ( Amer) > 60 Est GFR (Non-Af Amer) > 60 03/23/18 00:46 Creatine Kinase 30 Impressions: Chest X-Ray 03/22/18 21:13 IMPRESSION: Bibasilar airspace opacities, may represent atelectasis or pneumonia. Head CT 03/22/18 21:22 IMPRESSION: No acute intracranial hemorrhage or acute territorial infarct. Mild chronic changes of atrophy and microvascular ischemia. EVIDENCE OF ACUTE STROKE: NO. Assessment & Plan - Diagnosis (1) Right lower lobe pneumonia Qualifiers: Pneumonia type: due to unspecified organism Qualified Code(s): J18.1 - Lobar pneumonia, unspecified organism Is this a current diagnosis for this admission?: Yes (2) Jay disease Is this a current diagnosis for this admission?: Yes (3) Chronic atrial fibrillation Is this a current diagnosis for this admission?: Yes (4) COPD (chronic obstructive pulmonary disease) Qualifiers: COPD type: unspecified COPD Qualified Code(s): J44.9 - Chronic obstructive pulmonary disease, unspecified Is this a current diagnosis for this admission?: Yes (5) MRSA (methicillin resistant Staphylococcus aureus) septicemia Is this a current diagnosis for this admission?: Yes Plan: Continue IV vancomycin, 2D echo ordered (6) Sepsis Qualifiers: Sepsis type: methicillin resistant Staphylococcus aureus Qualified Code(s) : A41.02 - Sepsis due to Methicillin resistant Staphylococcus aureus Is this a current diagnosis for this admission?: Yes (7) Acute kidney injury Is this a current diagnosis for this admission?: Yes (8) Anemia Qualifiers: Anemia type: unspecified type Qualified Code(s): D64.9 - Anemia, unspecified Is this a current diagnosis for this admission?: Yes (9) Acute hypoxemic respiratory failure Is this a current diagnosis for this admission?: Yes Plan: Continue noninvasive ventilation
[2018-03-26 20:43] LABS: HEMATOCRIT 21.5 % (36.0-47.0); MEAN CORPUSCULAR HEMOGLOBIN 28.8 pg (27.0-33.4); MEAN CORPUSCULAR HGB CONC 33.2 g/dL (32.0-36.0); MEAN CORPUSCULAR VOLUME 87 fl (80-97); PLATELET COUNT 215 10^3/uL (150-450); RED BLOOD COUNT 2.48 10^6/uL (3.72-5.28); RED CELL DISTRIBUTION WIDTH 18.8 % (11.5-14.0); WHITE BLOOD COUNT 10.4 10^3/uL (4.0-10.5)
[2018-03-26 20:50] LABS: ALANINE AMINOTRANSFERASE 18 U/L (9-52); ALBUMIN 2.5 g/dL (3.5-5.0); ALKALINE PHOSPHATASE 43 U/L (38-126); ANION GAP 9 (5-19); ASPARTATE AMINO TRANSFERASE 19 U/L (14-36); BILIRUBIN,DIRECT 0.1 mg/dL (0.0-0.4); BILIRUBIN,TOTAL 0.1 mg/dL (0.2-1.3); BLOOD UREA NITROGEN 32 mg/dL (7-20); CALCIUM 8.7 mg/dL (8.4-10.2); CARBON DIOXIDE 22 mmol/L (22-30); CHLORIDE 117 mmol/L (98-107); GLUCOSE 121 mg/dL (75-110); POTASSIUM 3.4 mmol/L (3.6-5.0); SODIUM 147.6 mmol/L (137-145); TOTAL PROTEIN 4.6 g/dL (6.3-8.2)
[2018-03-26 20:58] LABS: ABSOLUTE LYMPHOCYTES# (MANUAL) 1.6 10^3/uL (0.5-4.7); ABSOLUTE MONOCYTES # (MANUAL) 0.1 10^3/uL (0.1-1.4); ABSOLUTE NEUTROPHILS# (MANUAL) 8.7 10^3/uL (1.7-8.2); BAND NEUTROPHILS % (MANUAL) 1 % (3-5); BASOPHILS % (MANUAL) 0 % (0-2); EOSINOPHILS % (MANUAL) 0 % (0-6); LYMPHOCYTES % (MANUAL) 15 % (13-45); METAMYELOCYTES % (MANUAL) 1 % (0); MONOCYTES % (MANUAL) 1 % (3-13); NUCLEATED RED BLOOD CELLS 1 /100 WBC (0); SEGMENTED NEUTROPHILS % (MAN) 82 % (42-78); TOTAL CELLS COUNTED 100
[2018-03-26 20:59] LABS: ANISOCYTOSIS 1+; OVALOCYTES SLIGHT; PLATELET COMMENT ADEQUATE; POIKILOCYTOSIS SLIGHT; TEAR DROP CELLS SLIGHT
[2018-03-26 21:02] LABS: HEMOGLOBIN 7.1 g/dL (12.0-15.5)
[2018-03-26] MEDS: LATANOPROST 0.005% OPH SOLN 2.5 ML OU SCH (22:46)
[2018-03-27] MEDS: IPRATROPIUM/ALBUTEROL 0.5-2.5 MG/3 ML AMPUL NEB SCH ×4 (01:57→20:00)
[2018-03-27 05:27] LABS: HEMATOCRIT 21.2 % (36.0-47.0); MEAN CORPUSCULAR HEMOGLOBIN 28.9 pg (27.0-33.4); MEAN CORPUSCULAR VOLUME 85 fl (80-97); RED BLOOD COUNT 2.49 10^6/uL (3.72-5.28); RED CELL DISTRIBUTION WIDTH 18.6 % (11.5-14.0); WHITE BLOOD COUNT 8.4 10^3/uL (4.0-10.5)
[2018-03-27 05:29] LABS: HEMOGLOBIN 7.2 g/dL (12.0-15.5)
[2018-03-27 05:47] LABS: ALANINE AMINOTRANSFERASE 19 U/L (9-52); ALBUMIN 2.4 g/dL (3.5-5.0); ALKALINE PHOSPHATASE 42 U/L (38-126); ANION GAP 10 (5-19); ASPARTATE AMINO TRANSFERASE 15 U/L (14-36); BILIRUBIN,DIRECT 0.1 mg/dL (0.0-0.4); BILIRUBIN,TOTAL 0.1 mg/dL (0.2-1.3); BLOOD UREA NITROGEN 29 mg/dL (7-20); CALCIUM 8.9 mg/dL (8.4-10.2); CARBON DIOXIDE 22 mmol/L (22-30); CHLORIDE 120 mmol/L (98-107); GLUCOSE 81 mg/dL (75-110); POTASSIUM 3.2 mmol/L (3.6-5.0); SODIUM 151.6 mmol/L (137-145); TOTAL PROTEIN 4.5 g/dL (6.3-8.2)
[2018-03-27 06:12] LABS: ABSOLUTE LYMPHOCYTES# (MANUAL) 0.6 10^3/uL (0.5-4.7); ABSOLUTE MONOCYTES # (MANUAL) 0.1 10^3/uL (0.1-1.4); ABSOLUTE NEUTROPHILS# (MANUAL) 7.7 10^3/uL (1.7-8.2); BAND NEUTROPHILS % (MANUAL) 1 % (3-5); BASOPHILS % (MANUAL) 0 % (0-2); EOSINOPHILS % (MANUAL) 0 % (0-6); LYMPHOCYTES % (MANUAL) 7 % (13-45); METAMYELOCYTES % (MANUAL) 2 % (0); MONOCYTES % (MANUAL) 1 % (3-13); PLATELET CLUMPS PRESENT; PLATELET COMMENT ADEQUATE; SEGMENTED NEUTROPHILS % (MAN) 89 % (42-78); TOTAL CELLS COUNTED 100
[2018-03-27 06:14] LABS: POLYCHROMASIA SLIGHT
[2018-03-27 06:16] LABS: PLATELET COUNT 202 10^3/uL (150-450)
[2018-03-27] MEDS: HYDROCORTISONE SOD SUCCINATE INJ/PF 100 MG/2 ML SDV IV SCH ×3 (06:31→21:26)
[2018-03-27] MEDS: LANSOPRAZOLE 15 MG TAB.RAP.DR PO SCH (06:31)
[2018-03-27 06:42] LABS: ARTERIAL BLOOD BASE EXCESS -3.3 mmol/L; ARTERIAL BLOOD H2CO3 0.77 mmol/L (1.05-1.35); ARTERIAL BLOOD HCO3 19.5 mmol/L (20-26); ARTERIAL BLOOD O2 SATURATION 92.5 % (94-98); ARTERIAL BLOOD PCO2 25.6 mmHg (35-45); ARTERIAL BLOOD PO2 56.9 mmHg (80-100); ARTERIAL BLOOD TOTAL CO2 20.3 mmol/L (21-25)
[2018-03-27 06:46] LABS: ARTERIAL BLOOD FIO2 28%
[2018-03-27] MEDS ORDERED: NORMAL SALINE 250 ML IV PRN ×2 (08:13)
--- NOTE | 2018-03-27 08:51 | PDOC CONSULTATION ---
Consultation Consult Date: 03/27/18 Consult reason:: Large hiatal hernia, intrathoracic stomach. History of Present Illness Admission Date/PCP: 03/22/18 23:22 KEILY CHRISTIANSON MD Patient complains of: Shortness of breath, aspiration History of Present Illness: JESSY PARKER is a 77 year old female seen at the request of Dr. Patino for consultation. Patient was admitted for shortness of breath, altered mental status, and aspiration pneumonia. Patient has a history of a large hiatal hernia present for many years. She reports that he frequently regurgitates her food, has early satiety, and has been hospitalized for recurrent aspiration pneumonitis. Yesterday, she was found to be confused and tachypneic. Currently she is on BiPAP. She is conversive today. She denies any chest pain , abdominal pain, nausea, vomiting, fevers, chills, dizziness, blurry vision, malaise, or fatigue. Past Medical History Cardiac Medical History: Reports: Atrial Fibrillation, Congestive Heart Failure , Coronary Artery Disease, Hyperlipidema, Hypertension Pulmonary Medical History: Reports: Asthma, Bronchitis, Pneumonia, Sleep Apnea EENT Medical History: Denies: Nose, Throat Neurological Medical History: Denies: Migraine, Multiple Sclerosis, Seizures Endocrine Medical History: Reports: Diabetes Mellitus Type 2, Obesity Renal/ Medical History: Denies: End Stage Renal Disease GI Medical History: Reports: Gastroesophageal Reflux Disease, Hiatal Hernia - Large, with intrathoracic stomach., Ulcerative Colitis Musculoskeltal Medical History: Reports: Arthritis Skin Medical History: Denies: Psoriasis Psychiatric Medical History: Reports: Depression Traumatic Medical History: Denies: Traumatic Brain Injury Hematology: Reports: Anemia Infectious Medical History: Reports: Methicillin-Resistant Staph Aureus Past Surgical History Past Surgical History: Reports: Appendectomy, Other - History of right hemicolectomy, questionable history of ulcerative colitis. Social History Smoking Status: Former Smoker Frequency of Alcohol Use: None Hx Recreational Drug Use: No Drugs: None Hx Prescription Drug Abuse: No - Advance Directive Resuscitation Status: Do Not Resuscitate Family History Family History: CAD, Hyperlipidemia, Hypertension Parental Family History Reviewed: Yes Children Family History Reviewed: Yes Sibling(s) Family History Reviewed.: Yes Medication/Allergy Home Medications: Apixaban [Eliquis] 5 mg PO Q12 03/22/18 Budesonide 0.5 mg NEB BID 03/22/18 Calcium Carbonate [Calcium] 600 mg PO MEALS 03/22/18 Cholecalciferol (Vitamin D3) [Vitamin D3 1000 Unit Tablet] 1,000 unit PO DAILY 03/22/18 Digoxin [Lanoxin 0.125 mg Tablet] 0.125 mg PO MOWEFR@1000 03/22/18 Diltiazem HCl [Cardizem Cd 240 mg Capsule.cr] 240 mg PO Q12 03/22/18 Dronedarone Hydrochloride [Multaq 400 Mg Tablet] 400 mg PO BID 03/22/18 Fenofibrate Nanocrystallized [Fenofibrate] 145 mg PO DAILY 03/22/18 Ferrous Sulfate [Ferosul] 325 mg PO DAILY 03/22/18 Furosemide [Lasix] 40 mg PO DAILY 03/22/18 Gabapentin 800 mg PO TID 03/22/18 Hum Insulin NPH/Reg Insulin Hm [Novolin 70-30 100 Unit/Ml Vial] 15 unit SQ QHS 03/22/18 Hum Insulin NPH/Reg Insulin Hm [Novolin 70-30 100 Unit/Ml Vial] 30 unit SQ DAILY 03/22/18 Lactobacillus Acidophilus [Acidophilus] 1 tab PO DAILY 03/22/18 Levalbuterol HCl [Xopenex Neb 0.63 mg/3 ml Ampul] 0.63 mg NEB Q8H 03/22/18 Levalbuterol Tartrate [Xopenex Hfa] 1 puff IH Q4HP PRN 03/22/18 Losartan Potassium 100 mg PO DAILY 03/22/18 Omeprazole 20 mg PO BID 03/22/18 Cyanocobalamin (Vitamin B-12) [Vitamin B-12 100 mcg Tablet] 100 mcg PO DAILY 07/31 Latanoprost [Xalatan 0.005% Oph Soln 2.5 ml] 1 drop OU QHS 03/23/18 Acetylcysteine [Mucomist 10% Neb 400 mg/4 ml Vial] 200 mg IH BID 03/25/18 Prednisone [Deltasone 20 mg Tablet] 20 mg PO DAILY 03/25/18 Allergies/Adverse Reactions: aspirin [Aspirin] Allergy (Verified 03/22/18 23:03) colchicine Allergy (Verified 03/22/18 23:03) iodine Allergy (Verified 03/22/18 23:03) Penicillins Allergy (Verified 03/22/18 23:03) Hives shellfish derived Allergy (Verified 03/22/18 23:03) Review of Systems Constitutional: ABSENT: chills, fatigue, fever(s) Eyes: ABSENT: visual disturbances Ears: ABSENT: hearing changes Nose, Mouth, and Throat: ABSENT: sore throat Cardiovascular: ABSENT: chest pain Respiratory: PRESENT: dyspnea Gastrointestinal: PRESENT: dysphagia, heartburn, nausea, vomiting. ABSENT: abdominal pain Musculoskeletal: ABSENT: deformity Integumentary: ABSENT: pruritus, rash Neurological: PRESENT: confusion, memory loss Psychiatric: ABSENT: anxiety, depression, hallucinations Endocrine: ABSENT: cold intolerance, heat intolerance Hematologic/Lymphatic: ABSENT: easy bleeding, easy bruising Physical Exam Vital Signs: Temp Pulse Resp BP Pulse Ox 98.1 F 73 16 142/47 H 94 03/26/18 20:28 03/27/18 02:00 03/27/18 04:00 03/26/18 20:28 03/27/18 04:00 Intake & Output 03/26/18 03/27/18 03/28/18 06:59 06:59 06:59 Intake Total 2423 2345 Balance 2423 2345 Weight 55.6 kg 56.4 kg General appearance: PRESENT: mild distress - Respiratory, requiring BiPAP Head exam: PRESENT: atraumatic, normocephalic Eye exam: PRESENT: EOMI, PERRLA. ABSENT: scleral icterus Mouth exam: PRESENT: neck supple Neck exam: ABSENT: lymphadenopathy, meningismus, tenderness, thyromegaly, tracheal deviation Respiratory exam: PRESENT: rales, rhonchi, tachypnea - Mild. ABSENT: chest wall tenderness Cardiovascular exam: PRESENT: irregular rhythm Pulses: PRESENT: normal radial pulses GI/Abdominal exam: PRESENT: soft. ABSENT: distended, guarding, tenderness Rectal exam: PRESENT: deferred Extremities exam: ABSENT: tenderness Musculoskeletal exam: ABSENT: tenderness Neurological exam: PRESENT: alert, awake, oriented to person, oriented to place , CN II-XII grossly intact. ABSENT: motor sensory deficit Psychiatric exam: ABSENT: agitated, anxious, depressed Skin exam: ABSENT: cyanosis, erythema, jaundice Results Laboratory Results: 03/27/18 04:13 03/27/18 04:13 03/26/18 03/26/18 03/26/18 09:24 17:43 20:20 WBC 10.4 RBC 2.48 L Hgb 7.1 L Hct 21.5 L MCV 87 MCH 28.8 MCHC 33.2 RDW 18.8 H Plt Count 215 Seg Neutrophils % Not Reportable Lymphocytes % Not Reportable Monocytes % Not Reportable Eosinophils % Not Reportable Basophils % Not Reportable Absolute Neutrophils Not Reportable Absolute Lymphocytes Not Reportable Absolute Monocytes Not Reportable Absolute Eosinophils Not Reportable Absolute Basophils Not Reportable Carbonic Acid 0.81 L HCO3/H2CO3 Ratio 26:1 ABG pH 7.52 H ABG pCO2 26.9 L ABG pO2 72.9 L ABG HCO3 21.2 ABG O2 Saturation 96.2 ABG Base Excess -1.3 FiO2 35% Sodium Potassium Chloride Carbon Dioxide Anion Gap BUN Creatinine 0.88 Est GFR ( Amer) > 60 Est GFR (Non-Af Amer) > 60 Glucose Calcium Magnesium Total Bilirubin AST ALT Alkaline Phosphatase Total Protein Albumin 03/26/18 03/27/18 03/27/18 20:20 04:13 04:13 WBC 8.4 RBC 2.49 L Hgb 7.2 L Hct 21.2 L MCV 85 MCH 28.9 MCHC 34.0 RDW 18.6 H Plt Count 202 Seg Neutrophils % Not Reportable Lymphocytes % Not Reportable Monocytes % Not Reportable Eosinophils % Not Reportable Basophils % Not Reportable Absolute Neutrophils Not Reportable Absolute Lymphocytes Not Reportable Absolute Monocytes Not Reportable Absolute Eosinophils Not Reportable Absolute Basophils Not Reportable Carbonic Acid HCO3/H2CO3 Ratio ABG pH ABG pCO2 ABG pO2 ABG HCO3 ABG O2 Saturation ABG Base Excess FiO2 Sodium 147.6 H 151.6 H Potassium 3.4 L 3.2 L Chloride 117 H 120 H Carbon Dioxide 22 22 Anion Gap 9 10 BUN 32 H 29 H Creatinine 0.87 0.85 Est GFR ( Amer) > 60 > 60 Est GFR (Non-Af Amer) > 60 > 60 Glucose 121 H 81 Calcium 8.7 8.9 Magnesium 2.4 H Total Bilirubin 0.1 L 0.1 L AST 19 15 ALT 18 19 Alkaline Phosphatase 43 42 Total Protein 4.6 L 4.5 L Albumin 2.5 L 2.4 L 03/27/18 06:30 WBC RBC Hgb Hct MCV MCH MCHC RDW Plt Count Seg Neutrophils % Lymphocytes % Monocytes % Eosinophils % Basophils % Absolute Neutrophils Absolute Lymphocytes Absolute Monocytes Absolute Eosinophils Absolute Basophils Carbonic Acid 0.77 L HCO3/H2CO3 Ratio 25:1 ABG pH 7.50 H ABG pCO2 25.6 L ABG pO2 56.9 L ABG HCO3 19.5 L ABG O2 Saturation 92.5 L ABG Base Excess -3.3 FiO2 28% Sodium Potassium Chloride Carbon Dioxide Anion Gap BUN Creatinine Est GFR ( Amer) Est GFR (Non-Af Amer) Glucose Calcium Magnesium Total Bilirubin AST ALT Alkaline Phosphatase Total Protein Albumin 03/23/18 00:46 Creatine Kinase 30 Impressions: Head CT 03/22/18 21:22 IMPRESSION: No acute intracranial hemorrhage or acute territorial infarct. Mild chronic changes of atrophy and microvascular ischemia. EVIDENCE OF ACUTE STROKE: NO. Assessment & Plan - Diagnosis (1) Acute hypoxemic respiratory failure Is this a current diagnosis for this admission?: Yes (2) Hiatal hernia with GERD Is this a current diagnosis for this admission?: Yes - Plan Summary Plan Summary: This is a 77-year-old female with a very large, chronic hiatal hernia. She has a completely intrathoracic stomach. She suffers from recurrent aspiration pneumonia. Currently, she is wearing BiPAP. I have discussed with her and her daughter the possibility of repairing her hiatal hernia. The daughter is unsure if the patient is fit for surgery. This is certainly a reasonable concern. I have encouraged the patient and her daughter to continue with her current treatment. Once her medical status has improved and she has been discharged, I will see her in my office. We will again discuss the possibility of hiatal hernia repair. I have provided my contact information for follow-up. I will see her again on an outpatient basis.
--- NOTE | 2018-03-27 08:54 | RADIOLOGY REPORT (SQ) ---
EXAM DESCRIPTION: CHEST SINGLE VIEW COMPLETED DATE/TIME: 03/27/2018 8:45 am REASON FOR STUDY: pna/resp failure COMPARISON: CT chest 03/23/2018 Chest films 03/22/2018, 01/04/2018, 12/05/2017 EXAM PARAMETERS: NUMBER OF VIEWS: One view. TECHNIQUE: Single frontal radiographic view of the chest acquired. RADIATION DOSE: NA LIMITATIONS: None. FINDINGS: LUNGS AND PLEURA: There is diffuse right-sided airspace disease worrisome for pneumonia, n ew compared to previous exams. Patient has a large retrocardiac hiatal hernia, aspiration pneumonia should be considered. Trace right pleural effusion. Left basilar bandlike scarring or atelectasis is present just above the hemidiaphragm. No left pleur al effusion. No right or left pneumothorax MEDIASTINUM AND HILAR STRUCTURES: Large retrocardiac hiatal hernia HEART AND VASCULAR STRUCTURES: Stable cardiomegaly BONES: Osteoporotic HARDWARE: None in the chest. OTHER: No other significant finding. IMPRESSION: Diffuse right-sided airspace disease worrisome for pneumonia. Aspiration should be cons idered. TECHNICAL DOCUMENTATION: JOB ID: [id number] [employer]- All Rights Reserved Reading location - IP/workstation name: [facility]
[2018-03-27] MEDS: BUDESONIDE NEB 0.5 MG/2 ML AMPUL NEB SCH ×2 (09:00→20:00)
[2018-03-27] MEDS: HUM INSULIN NPH/REG INSULIN HM 100 UNIT/1 ML 3 ML SUBCUT SCH ×2 (10:29→21:26)
[2018-03-27] MEDS: CHOLECALCIFEROL (D3) 1,000 UNIT TABLET PO SCH (10:29)
[2018-03-27] MEDS: CYANOCOBALAMIN (VITAMIN B-12) 1,000 MCG TABLET PO SCH (10:29)
[2018-03-27] MEDS: POTASSIUM CHLORIDE 10 MEQ TABLET.SA PO SCH (10:29)
[2018-03-27] MEDS: LOSARTAN POTASSIUM 50 MG TABLET PO SCH (10:29)
[2018-03-27] MEDS: GABAPENTIN 400 MG CAPSULE PO SCH ×3 (10:29→19:27)
[2018-03-27] MEDS: GUAIFENESIN 600 MG TABLET.SA PO SCH ×2 (10:30→21:26)
[2018-03-27] MEDS: APIXABAN 5 MG TABLET PO SCH ×2 (10:30→21:26)
[2018-03-27] MEDS: CALCIUM CARBONATE 500 MG TABLET PO SCH (10:30)
[2018-03-27] MEDS: DILTIAZEM HCL 240 MG CAPSULE.CR PO SCH ×2 (10:30→21:26)
[2018-03-27] MEDS: FERROUS SULFATE 325 MG TABLET PO SCH (10:31)
[2018-03-27] MEDS: FENOFIBRATE NANOCRYSTALLIZED 145 MG TABLET PO SCH (10:31)
[2018-03-27] MEDS: DRONEDARONE HYDROCHLORIDE 400 MG TABLET PO SCH ×2 (10:31→19:27)
[2018-03-27] MEDS: LACTOBACILLUS ACIDOPHILUS 250 MG TAB PO SCH (10:39)
[2018-03-27] MEDS: VANCOMYCIN HCL 1,000 MG in DEXTROSE 5%-WATER 250 ML IV SCH (11:38)
[2018-03-27] MEDS ORDERED: FUROSEMIDE INJ/PF 20 MG/2 ML SDV IV PRN (16:30)
--- NOTE | 2018-03-27 19:14 | PDOC PROGRESS REPORT ---
Subjective Progress Note for:: 03/27/18 Subjective:: She was seen by the bedside, patient's condition is very poor she continues to require noninvasive positive pressure ventilation throughout the day, she is not able to have a lunch because she is very short of breath, the chest x-ray that was done today showed diffuse right lung infiltrate which has worsen since admission she has a huge hiatal hernia essentially she has the stomach in the thoracic cavity , it was felt that she is aspirating. She was seen by the general surgeon but she does not seems to be a good surgical candidate at this time for surgery, she is a DNR status the patient and the daughter also reminded me that she does not want mechanical ventilation so the best we can give to support her breathing is noninvasive ventilation, she is also have anemia persistently for the last 3 days she was transfused with packed red blood cells today. Reason For Visit: PNEUMONIA,MULTIPLE CO-MORBID CONDITIONS Physical Exam Vital Signs: Temp Pulse Resp BP Pulse Ox 97.9 F 75 23 H 145/53 H 100 03/27/18 18:49 03/27/18 18:49 03/27/18 18:49 03/27/18 18:49 03/27/18 18:49 Intake & Output 03/26/18 03/27/18 03/28/18 06:59 06:59 06:59 Intake Total 2423 2345 1277 Balance 2423 2345 1277 Weight 55.6 kg 56.4 kg General appearance: PRESENT: severe distress Eye exam: PRESENT: PERRLA Respiratory exam: PRESENT: wheezes Cardiovascular exam: PRESENT: +S1, +S2 GI/Abdominal exam: PRESENT: soft Neurological exam: PRESENT: alert Results Laboratory Results: 03/27/18 04:13 03/27/18 04:13 03/26/18 03/26/18 03/27/18 20:20 20:20 04:13 WBC 10.4 8.4 RBC 2.48 L 2.49 L Hgb 7.1 L 7.2 L Hct 21.5 L 21.2 L MCV 87 85 MCH 28.8 28.9 MCHC 33.2 34.0 RDW 18.8 H 18.6 H Plt Count 215 202 Seg Neutrophils % Not Reportable Not Reportable Lymphocytes % Not Reportable Not Reportable Monocytes % Not Reportable Not Reportable Eosinophils % Not Reportable Not Reportable Basophils % Not Reportable Not Reportable Absolute Neutrophils Not Reportable Not Reportable Absolute Lymphocytes Not Reportable Not Reportable Absolute Monocytes Not Reportable Not Reportable Absolute Eosinophils Not Reportable Not Reportable Absolute Basophils Not Reportable Not Reportable Carbonic Acid HCO3/H2CO3 Ratio ABG pH ABG pCO2 ABG pO2 ABG HCO3 ABG O2 Saturation ABG Base Excess FiO2 Sodium 147.6 H Potassium 3.4 L Chloride 117 H Carbon Dioxide 22 Anion Gap 9 BUN 32 H Creatinine 0.87 Est GFR ( Amer) > 60 Est GFR (Non-Af Amer) > 60 Glucose 121 H Calcium 8.7 Magnesium Total Bilirubin 0.1 L AST 19 ALT 18 Alkaline Phosphatase 43 Total Protein 4.6 L Albumin 2.5 L Blood Type Antibody Screen 03/27/18 03/27/18 03/27/18 04:13 06:30 08:57 WBC RBC Hgb Hct MCV MCH MCHC RDW Plt Count Seg Neutrophils % Lymphocytes % Monocytes % Eosinophils % Basophils % Absolute Neutrophils Absolute Lymphocytes Absolute Monocytes Absolute Eosinophils Absolute Basophils Carbonic Acid 0.77 L HCO3/H2CO3 Ratio 25:1 ABG pH 7.50 H ABG pCO2 25.6 L ABG pO2 56.9 L ABG HCO3 19.5 L ABG O2 Saturation 92.5 L ABG Base Excess -3.3 FiO2 28% Sodium 151.6 H Potassium 3.2 L Chloride 120 H Carbon Dioxide 22 Anion Gap 10 BUN 29 H Creatinine 0.85 Est GFR ( Amer) > 60 Est GFR (Non-Af Amer) > 60 Glucose 81 Calcium 8.9 Magnesium 2.4 H Total Bilirubin 0.1 L AST 15 ALT 19 Alkaline Phosphatase 42 Total Protein 4.5 L Albumin 2.4 L Blood Type A POSITIVE Antibody Screen NEGATIVE 03/23/18 00:46 Creatine Kinase 30 Impressions: Head CT 03/22/18 21:22 IMPRESSION: No acute intracranial hemorrhage or acute territorial infarct. Mild chronic changes of atrophy and microvascular ischemia. EVIDENCE OF ACUTE STROKE: NO. Chest X-Ray 03/27/18 06:00 IMPRESSION: Diffuse right-sided airspace disease worrisome for pneumonia. Aspiration should be considered. Assessment & Plan - Diagnosis (1) Right lower lobe pneumonia Qualifiers: Pneumonia type: due to unspecified organism Qualified Code(s): J18.1 - Lobar pneumonia, unspecified organism Is this a current diagnosis for this admission?: Yes (2) [place] disease Is this a current diagnosis for this admission?: Yes (3) Chronic atrial fibrillation Is this a current diagnosis for this admission?: Yes (4) COPD (chronic obstructive pulmonary disease) Qualifiers: COPD type: unspecified COPD Qualified Code(s): J44.9 - Chronic obstructive pulmonary disease, unspecified Is this a current diagnosis for this admission?: Yes (5) MRSA (methicillin resistant Staphylococcus aureus) septicemia Is this a current diagnosis for this admission?: Yes (6) Sepsis Qualifiers: Sepsis type: methicillin resistant Staphylococcus aureus Qualified Code(s) : A41.02 - Sepsis due to Methicillin resistant Staphylococcus aureus Is this a current diagnosis for this admission?: Yes (7) Acute kidney injury Is this a current diagnosis for this admission?: Yes (8) Anemia Qualifiers: Anemia type: unspecified type Qualified Code(s): D64.9 - Anemia, unspecified Is this a current diagnosis for this admission?: Yes (9) Acute hypoxemic respiratory failure Is this a current diagnosis for this admission?: Yes - Plan Summary Plan Summary: She has MRSA sepsis with severe right lung pneumonia, she was transfused with 2 units of packed red blood cells, she has a large hiatal hernia probably aspiration pneumonia, sputum culture is growing gram-positive cocci in clusters , Continue IV vancomycin 2D echo was done to screen for endocarditis because of MRSA septicemia
--- NOTE | 2018-03-27 20:25 | XCELERA REPORT ---
[address] [address] Transthoracic Echocardiogram Report Name: JESSY PARKER Age: 77 yrs Gender: Female : 1940 Patient Status: Inpatient Patient Location: [address] [place] [address] Study Date: 03/27/2018 10:36 AM Height: 58 in Weight: 122 lb BSA: 1.5 m2 Procedure: A two-dimensional transthoracic echocardiogram with color flow and Doppler was performed. Study Quality: Technically suboptimal. The study was technically difficult with many images being suboptimal in quality. Reason For Study: MRSA BACTEREMIA / ENDOCARDITIS History: MRSA BACTEREMIA / ENDOCARDITIS. Ordering Physician: YANA ALVAREZ Performed By: Patricio Cruz Interpretation Summary Recommend MIGUELITO. The left ventricle is normal in size. There is normal left ventricular wall thickness. LV EF is > than65% Left ventricular systolic function is normal. Doppler measurements suggest impaired left ventricular relaxation, which is associated with grade I/IV or mild diastolic dysfunction The left ventricular wall motion is normal. There is no thrombus. The right ventricle is not well visualized secondary to technical limitations The left atrial size is normal. Most likely artifact in [place], but recommend MIGUELITO to be sure , and also look for valvular vegetations. There is no evidence of mitral valve prolapse. There is no mitral valve stenosis. There is a mild amount of mitral regurgitation There is no aortic valve stenosis There is no LVOT obstruction. No aortic regurgitation is present. There is no tricuspid stenosis. Perhaps mild TR ( no good interogation).RVSP is 53 to 58 mm of Hg , with RA mean of 5 to 10. There is moderate pulmonary hypertension by echo There is no pulmonic valvular stenosis. There is no pericardial effusion. Recommend MIGUELITO. MMode/2D Measurements & Calculations RVDd: 3.2 cm LVIDd: 4.2 cm FS: 39.4 % Ao root diam: 2.6 cm IVSd: 1.0 cm LVIDs: 2.5 cm EDV(Teich): 77.8 ml LVPWd: 0.85 cm ESV(Teich): 23.1 ml Ao root area: 5.2 cm2 EF(Teich): 70.3 % Doppler Measurements & Calculations MV E max brittani: MV dec slope: Ao V2 max: LV V1 max P.2 cm/sec 168.2 cm/sec 4.0 mmHg MV A max brittani: 470.4 cm/sec2 Ao max PG: LV V1 max: 121.1 cm/sec MV dec time: 11.3 mmHg 100.6 cm/sec MV E/A: 0.79 0.20 sec PA V2 max: PI end-d brittani: TR max brittani: 123.3 cm/sec 110.5 cm/sec 337.7 cm/sec PA max P.1 mmHg TR max P.7 mmHg Left Ventricle The left ventricle is normal in size. There is normal left ventricular wall thickness. LV EF is > than65%. Left ventricular systolic function is normal. Doppler measurements suggest impaired left ventricular relaxation, which is associated with grade I/IV or mild diastolic dysfunction. The left ventricular wall motion is normal. There is no thrombus. Right Ventricle The right ventricle is not well visualized secondary to technical limitations. Atria The right atrium is normal. The left atrial size is normal. Most likely artifact in [place], but recommend MIGUELITO to be sure , and also look for valvular vegetations. The interatrial septum is intact with no evidence for an atrial septal defect. Mitral Valve There is no evidence of mitral valve prolapse. There is no vegetation seen on the mitral valve. There is no mitral valve stenosis. There is a mild amount of mitral regurgitation. Aortic Valve The aortic valve is trileaflet. The aortic valve opens well. There is no aortic valvular vegetation. There is no aortic valve stenosis. There is no LVOT obstruction. No aortic regurgitation is present. Tricuspid Valve There is no tricuspid stenosis. Perhaps mild TR ( no good interogation).RVSP is 53 to 58 mm of Hg , with RA mean of 5 to 10. There is moderate pulmonary hypertension by echo. Pulmonic Valve There is no pulmonic valvular stenosis. There is a trace amount of pulmonic regurgitation. Great Vessels The aortic root is not well visualized but is probably normal size. Effusions There is no pericardial effusion. : YANA ALVAREZ > Pastora Meredith
[2018-03-27] MEDS: LATANOPROST 0.005% OPH SOLN 2.5 ML OU SCH (21:27)
[2018-03-28 01:02] LABS: HEMATOCRIT 30.2 % (36.0-47.0); MEAN CORPUSCULAR HEMOGLOBIN 28.2 pg (27.0-33.4); MEAN CORPUSCULAR HGB CONC 33.6 g/dL (32.0-36.0); MEAN CORPUSCULAR VOLUME 84 fl (80-97); PLATELET COUNT 236 10^3/uL (150-450); RED BLOOD COUNT 3.61 10^6/uL (3.72-5.28); RED CELL DISTRIBUTION WIDTH 17.5 % (11.5-14.0); WHITE BLOOD COUNT 11.8 10^3/uL (4.0-10.5)
[2018-03-28 01:11] LABS: HEMOGLOBIN 10.2 g/dL (12.0-15.5)
[2018-03-28 01:27] LABS: ABSOLUTE LYMPHOCYTES# (MANUAL) 0.8 10^3/uL (0.5-4.7); ABSOLUTE MONOCYTES # (MANUAL) 0.6 10^3/uL (0.1-1.4); ABSOLUTE NEUTROPHILS# (MANUAL) 10.4 10^3/uL (1.7-8.2); ANISOCYTOSIS 1+; LYMPHOCYTES % (MANUAL) 7 % (13-45); MONOCYTES % (MANUAL) 5 % (3-13); POIKILOCYTOSIS SLIGHT; SEGMENTED NEUTROPHILS % (MAN) 88 % (42-78)
[2018-03-28 01:28] LABS: BURR CELLS SLIGHT; OVALOCYTES 1+; PLATELET COMMENT ADEQUATE
[2018-03-28 01:36] LABS: BASOPHILS % (MANUAL) 0 % (0-2); EOSINOPHILS % (MANUAL) 0 % (0-6); TOTAL CELLS COUNTED 100
[2018-03-28] MEDS: IPRATROPIUM/ALBUTEROL 0.5-2.5 MG/3 ML AMPUL NEB SCH ×4 (02:00→19:40)
[2018-03-28] MEDS: LANSOPRAZOLE 15 MG TAB.RAP.DR PO SCH (06:12)
[2018-03-28] MEDS: HYDROCORTISONE SOD SUCCINATE INJ/PF 100 MG/2 ML SDV IV SCH ×3 (06:13→21:55)
[2018-03-28] MEDS: BUDESONIDE NEB 0.5 MG/2 ML AMPUL NEB SCH ×2 (08:51→19:40)
[2018-03-28 08:57] LABS: ALANINE AMINOTRANSFERASE 28 U/L (9-52); ALBUMIN 2.6 g/dL (3.5-5.0); ALKALINE PHOSPHATASE 54 U/L (38-126); ANION GAP 9 (5-19); ASPARTATE AMINO TRANSFERASE 26 U/L (14-36); BILIRUBIN,DIRECT 0.3 mg/dL (0.0-0.4); BILIRUBIN,TOTAL 0.5 mg/dL (0.2-1.3); BLOOD UREA NITROGEN 25 mg/dL (7-20); CALCIUM 8.6 mg/dL (8.4-10.2); CARBON DIOXIDE 22 mmol/L (22-30); CHLORIDE 116 mmol/L (98-107); GLUCOSE 154 mg/dL (75-110); SODIUM 147.2 mmol/L (137-145)
[2018-03-28 09:02] LABS: POTASSIUM 2.6 mmol/L (3.6-5.0)
[2018-03-28] MEDS: CYANOCOBALAMIN (VITAMIN B-12) 1,000 MCG TABLET PO SCH (10:48)
[2018-03-28] MEDS: CHOLECALCIFEROL (D3) 1,000 UNIT TABLET PO SCH (10:48)
[2018-03-28] MEDS: DILTIAZEM HCL 240 MG CAPSULE.CR PO SCH ×2 (10:48→21:54)
[2018-03-28] MEDS: POTASSIUM CHLORIDE 10 MEQ TABLET.SA PO SCH ×3 (10:49→15:02)
[2018-03-28] MEDS: LACTOBACILLUS ACIDOPHILUS 250 MG TAB PO SCH (10:49)
[2018-03-28] MEDS: FENOFIBRATE NANOCRYSTALLIZED 145 MG TABLET PO SCH (10:49)
[2018-03-28] MEDS: APIXABAN 5 MG TABLET PO SCH ×2 (10:49→21:55)
[2018-03-28] MEDS: DRONEDARONE HYDROCHLORIDE 400 MG TABLET PO SCH ×2 (10:49→17:14)
[2018-03-28] MEDS: FERROUS SULFATE 325 MG TABLET PO SCH (10:49)
[2018-03-28] MEDS: GUAIFENESIN 600 MG TABLET.SA PO SCH ×2 (10:49→21:54)
[2018-03-28] MEDS: GABAPENTIN 400 MG CAPSULE PO SCH ×3 (10:49→17:15)
[2018-03-28] MEDS: LOSARTAN POTASSIUM 50 MG TABLET PO SCH (10:49)
[2018-03-28] MEDS: CALCIUM CARBONATE 500 MG TABLET PO SCH (10:54)
[2018-03-28] MEDS: HUM INSULIN NPH/REG INSULIN HM 100 UNIT/1 ML 3 ML SUBCUT SCH ×2 (10:55→21:56)
--- NOTE | 2018-03-28 10:58 | PDOC PROGRESS REPORT ---
Subjective Progress Note for:: 03/28/18 Subjective:: Unchanged Reason For Visit: PNEUMONIA,MULTIPLE CO-MORBID CONDITIONS Physical Exam Vital Signs: Temp Pulse Resp BP Pulse Ox 97.5 F 78 26 H 154/67 H 97 03/28/18 07:27 03/28/18 07:27 03/28/18 07:27 03/28/18 07:27 03/28/18 07:27 Intake & Output 03/27/18 03/28/18 03/29/18 06:59 06:59 06:59 Intake Total 2345 1697 Balance 2345 1697 Weight 56.4 kg 56.4 kg General appearance: PRESENT: no acute distress, disheveled, obese Head exam: PRESENT: atraumatic, normocephalic Eye exam: PRESENT: conjunctiva pale, EOMI. ABSENT: nystagmus, periorbital swelling, scleral icterus Mouth exam: PRESENT: dry mucosa, neck supple, tongue midline Neck exam: PRESENT: tracheostomy. ABSENT: carotid bruit, JVD, lymphadenopathy, thyromegaly, tracheal deviation Respiratory exam: PRESENT: decreased breath sounds, prolonged expiratory phas, rales, rhonchi, unlabored. ABSENT: retraction, stridor Cardiovascular exam: PRESENT: RRR, +S1, +S2 Pulses: PRESENT: normal radial pulses GI/Abdominal exam: PRESENT: hypoactive bowel sounds, soft Extremities exam: ABSENT: calf tenderness, clubbing, joint swelling Musculoskeletal exam: ABSENT: deformity, dislocation Neurological exam: PRESENT: awake, oriented to person, oriented to place. ABSENT: oriented to time, oriented to situation Psychiatric exam: PRESENT: flat affect Skin exam: PRESENT: dry, warm Results Laboratory Results: 03/28/18 00:46 03/28/18 08:21 03/27/18 03/28/18 03/28/18 08:57 00:46 08:21 WBC 11.8 H RBC 3.61 L Hgb 10.2 L D Hct 30.2 L MCV 84 MCH 28.2 MCHC 33.6 RDW 17.5 H Plt Count 236 Seg Neutrophils % Not Reportable Lymphocytes % Not Reportable Monocytes % Not Reportable Eosinophils % Not Reportable Basophils % Not Reportable Absolute Neutrophils Not Reportable Absolute Lymphocytes Not Reportable Absolute Monocytes Not Reportable Absolute Eosinophils Not Reportable Absolute Basophils Not Reportable Sodium 147.2 H Potassium 2.6 L* Chloride 116 H Carbon Dioxide 22 Anion Gap 9 BUN 25 H Creatinine 0.75 Est GFR ( Amer) > 60 Est GFR (Non-Af Amer) > 60 Glucose 154 H Calcium 8.6 Total Bilirubin 0.5 AST 26 ALT 28 Alkaline Phosphatase 54 Total Protein 5.0 L Albumin 2.6 L Blood Type A POSITIVE Antibody Screen NEGATIVE 03/26/18 12:45 Sputum Gram Stain - Final 03/26/18 12:45 Sputum Sputum Culture - Final Mrsa (Meth Resis Staph Aureus) C.albicans/C.dubliniensis Normal Arlette Absent 03/23/18 00:46 Creatine Kinase 30 Impressions: Head CT 03/22/18 21:22 IMPRESSION: No acute intracranial hemorrhage or acute territorial infarct. Mild chronic changes of atrophy and microvascular ischemia. EVIDENCE OF ACUTE STROKE: NO. Chest X-Ray 03/27/18 06:00 IMPRESSION: Diffuse right-sided airspace disease worrisome for pneumonia. Aspiration should be considered. Assessment & Plan - Diagnosis (1) Right lower lobe pneumonia Qualifiers: Pneumonia type: due to methicillin-resistant Staphylococcus aureus (MRSA) Qualified Code(s): J15.212 - Pneumonia due to Methicillin resistant Staphylococcus aureus Is this a current diagnosis for this admission?: Yes Plan: We will check ABG last ABG showed a respiratory alkalosis and borderline hypoxia may be necessary to increase FiO2 to decrease except respiratory rate 03/26/18 12:45 Gram Stain - Final Sputum Sputum Culture - Final Mrsa (Meth Resis Staph Aureus) C.albicans/C.dubliniensis Normal Arlette Absent 03/22/18 21:15 Blood Culture - Final Blood Mrsa (Meth Resis Staph Aureus) (2) Hiatal hernia with GERD Is this a current diagnosis for this admission?: Yes Plan: We will consult surgeon evaluate for possible laparoscopic Júnior when patient is more stable (3) Chronic atrial fibrillation Is this a current diagnosis for this admission?: Yes Plan: Appears to be stable at this time
--- NOTE | 2018-03-28 10:59 | PDOC PROGRESS REPORT ---
Subjective Progress Note for:: 03/27/18 Subjective:: Unchanged Reason For Visit: PNEUMONIA,MULTIPLE CO-MORBID CONDITIONS Physical Exam Vital Signs: Temp Pulse Resp BP Pulse Ox 98.1 F 73 16 142/47 H 94 03/26/18 20:28 03/27/18 02:00 03/27/18 04:00 03/26/18 20:28 03/27/18 04:00 Intake & Output 03/26/18 03/27/18 03/28/18 06:59 06:59 06:59 Intake Total 2423 2345 Balance 2423 2345 Weight 55.6 kg 56.4 kg General appearance: PRESENT: no acute distress, disheveled Head exam: PRESENT: atraumatic, normocephalic Eye exam: PRESENT: conjunctiva pale, EOMI. ABSENT: nystagmus, periorbital swelling, scleral icterus Mouth exam: PRESENT: dry mucosa, neck supple, tongue midline Neck exam: PRESENT: tracheostomy. ABSENT: carotid bruit, JVD, lymphadenopathy, thyromegaly, tracheal deviation Respiratory exam: PRESENT: decreased breath sounds, prolonged expiratory phas, rales, rhonchi, unlabored. ABSENT: retraction, stridor Cardiovascular exam: PRESENT: RRR, +S1 Pulses: PRESENT: normal radial pulses GI/Abdominal exam: PRESENT: hypoactive bowel sounds, soft Extremities exam: ABSENT: calf tenderness, clubbing Musculoskeletal exam: ABSENT: ambulatory, deformity, dislocation Neurological exam: PRESENT: awake, oriented to person, oriented to place. ABSENT: oriented to time, oriented to situation Psychiatric exam: PRESENT: flat affect Skin exam: PRESENT: dry, warm Results Laboratory Results: 03/27/18 04:13 03/27/18 04:13 03/26/18 03/26/18 03/26/18 09:24 17:43 20:20 WBC 10.4 RBC 2.48 L Hgb 7.1 L Hct 21.5 L MCV 87 MCH 28.8 MCHC 33.2 RDW 18.8 H Plt Count 215 Seg Neutrophils % Not Reportable Lymphocytes % Not Reportable Monocytes % Not Reportable Eosinophils % Not Reportable Basophils % Not Reportable Absolute Neutrophils Not Reportable Absolute Lymphocytes Not Reportable Absolute Monocytes Not Reportable Absolute Eosinophils Not Reportable Absolute Basophils Not Reportable Carbonic Acid 0.81 L HCO3/H2CO3 Ratio 26:1 ABG pH 7.52 H ABG pCO2 26.9 L ABG pO2 72.9 L ABG HCO3 21.2 ABG O2 Saturation 96.2 ABG Base Excess -1.3 FiO2 35% Sodium Potassium Chloride Carbon Dioxide Anion Gap BUN Creatinine 0.88 Est GFR ( Amer) > 60 Est GFR (Non-Af Amer) > 60 Glucose Calcium Magnesium Total Bilirubin AST ALT Alkaline Phosphatase Total Protein Albumin 03/26/18 03/27/18 03/27/18 20:20 04:13 04:13 WBC 8.4 RBC 2.49 L Hgb 7.2 L Hct 21.2 L MCV 85 MCH 28.9 MCHC 34.0 RDW 18.6 H Plt Count 202 Seg Neutrophils % Not Reportable Lymphocytes % Not Reportable Monocytes % Not Reportable Eosinophils % Not Reportable Basophils % Not Reportable Absolute Neutrophils Not Reportable Absolute Lymphocytes Not Reportable Absolute Monocytes Not Reportable Absolute Eosinophils Not Reportable Absolute Basophils Not Reportable Carbonic Acid HCO3/H2CO3 Ratio ABG pH ABG pCO2 ABG pO2 ABG HCO3 ABG O2 Saturation ABG Base Excess FiO2 Sodium 147.6 H 151.6 H Potassium 3.4 L 3.2 L Chloride 117 H 120 H Carbon Dioxide 22 22 Anion Gap 9 10 BUN 32 H 29 H Creatinine 0.87 0.85 Est GFR ( Amer) > 60 > 60 Est GFR (Non-Af Amer) > 60 > 60 Glucose 121 H 81 Calcium 8.7 8.9 Magnesium 2.4 H Total Bilirubin 0.1 L 0.1 L AST 19 15 ALT 18 19 Alkaline Phosphatase 43 42 Total Protein 4.6 L 4.5 L Albumin 2.5 L 2.4 L 03/27/18 06:30 WBC RBC Hgb Hct MCV MCH MCHC RDW Plt Count Seg Neutrophils % Lymphocytes % Monocytes % Eosinophils % Basophils % Absolute Neutrophils Absolute Lymphocytes Absolute Monocytes Absolute Eosinophils Absolute Basophils Carbonic Acid 0.77 L HCO3/H2CO3 Ratio 25:1 ABG pH 7.50 H ABG pCO2 25.6 L ABG pO2 56.9 L ABG HCO3 19.5 L ABG O2 Saturation 92.5 L ABG Base Excess -3.3 FiO2 28% Sodium Potassium Chloride Carbon Dioxide Anion Gap BUN Creatinine Est GFR ( Amer) Est GFR (Non-Af Amer) Glucose Calcium Magnesium Total Bilirubin AST ALT Alkaline Phosphatase Total Protein Albumin 03/23/18 00:46 Creatine Kinase 30 Impressions: Chest X-Ray 03/22/18 21:13 IMPRESSION: Bibasilar airspace opacities, may represent atelectasis or pneumonia. Head CT 03/22/18 21:22 IMPRESSION: No acute intracranial hemorrhage or acute territorial infarct. Mild chronic changes of atrophy and microvascular ischemia. EVIDENCE OF ACUTE STROKE: NO. Assessment & Plan - Diagnosis (1) Right lower lobe pneumonia Qualifiers: Pneumonia type: due to methicillin-resistant Staphylococcus aureus (MRSA) Qualified Code(s): J15.212 - Pneumonia due to Methicillin resistant Staphylococcus aureus Is this a current diagnosis for this admission?: Yes Plan: We will check ABG last ABG showed a respiratory alkalosis and borderline hypoxia may be necessary to increase FiO2 to decrease except respiratory rate 03/26/18 12:45 Gram Stain - Final Sputum Sputum Culture - Final Mrsa (Meth Resis Staph Aureus) C.albicans/C.dubliniensis Normal Arlette Absent 03/22/18 21:15 Blood Culture - Final Blood Mrsa (Meth Resis Staph Aureus) (2) Hiatal hernia with GERD Is this a current diagnosis for this admission?: Yes Plan: We will consult surgeon evaluate for possible laparoscopic Júnior when patient is more stable (3) Chronic atrial fibrillation Is this a current diagnosis for this admission?: Yes Plan: Appears to be stable at this time
[2018-03-28] MEDS: VANCOMYCIN HCL 1,000 MG in DEXTROSE 5%-WATER 250 ML IV SCH (12:47)
[2018-03-28] MEDS: INSULIN LISPRO 100 UNIT/ML 3 ML VIAL SUBCUT PRN ×3 (12:47→21:55)
[2018-03-28 14:56] LABS: ALANINE AMINOTRANSFERASE 25 U/L (9-52); ALBUMIN 2.6 g/dL (3.5-5.0); ALKALINE PHOSPHATASE 52 U/L (38-126); ANION GAP 10 (5-19); ASPARTATE AMINO TRANSFERASE 19 U/L (14-36); BILIRUBIN,DIRECT 0.2 mg/dL (0.0-0.4); BILIRUBIN,TOTAL 0.4 mg/dL (0.2-1.3); BLOOD UREA NITROGEN 24 mg/dL (7-20); CALCIUM 8.6 mg/dL (8.4-10.2); CARBON DIOXIDE 22 mmol/L (22-30); CHLORIDE 115 mmol/L (98-107); GLUCOSE 137 mg/dL (75-110); POTASSIUM 3.3 mmol/L (3.6-5.0); SODIUM 146.5 mmol/L (137-145); TOTAL PROTEIN 4.8 g/dL (6.3-8.2)
--- NOTE | 2018-03-28 20:53 | PDOC PROGRESS REPORT ---
Subjective Progress Note for:: 03/28/18 Subjective:: Patient was seen by the bedside there is no new complaints Reason For Visit: PNEUMONIA,MULTIPLE CO-MORBID CONDITIONS Physical Exam Vital Signs: Temp Pulse Resp BP Pulse Ox 97.9 F 73 24 H 129/55 H 100 03/28/18 19:51 03/28/18 19:51 03/28/18 19:51 03/28/18 19:51 03/28/18 19:51 Intake & Output 03/27/18 03/28/18 03/29/18 06:59 06:59 06:59 Intake Total 2345 1693 525 Balance 2345 1697 525 Weight 56.4 kg 56.4 kg General appearance: PRESENT: mild distress Eye exam: PRESENT: PERRLA Respiratory exam: PRESENT: wheezes Cardiovascular exam: PRESENT: +S1, +S2 GI/Abdominal exam: PRESENT: soft Neurological exam: PRESENT: alert Results Laboratory Results: 03/28/18 00:46 03/28/18 14:28 03/28/18 03/28/18 03/28/18 00:46 08:21 08:21 WBC 11.8 H RBC 3.61 L Hgb 10.2 L D Hct 30.2 L MCV 84 MCH 28.2 MCHC 33.6 RDW 17.5 H Plt Count 236 Seg Neutrophils % Not Reportable Lymphocytes % Not Reportable Monocytes % Not Reportable Eosinophils % Not Reportable Basophils % Not Reportable Absolute Neutrophils Not Reportable Absolute Lymphocytes Not Reportable Absolute Monocytes Not Reportable Absolute Eosinophils Not Reportable Absolute Basophils Not Reportable Sodium 147.2 H Potassium 2.6 L* Chloride 116 H Carbon Dioxide 22 Anion Gap 9 BUN 25 H Creatinine 0.75 Est GFR ( Amer) > 60 Est GFR (Non-Af Amer) > 60 Glucose 154 H Calcium 8.6 Magnesium 2.1 Total Bilirubin 0.5 AST 26 ALT 28 Alkaline Phosphatase 54 Total Protein 5.0 L Albumin 2.6 L 03/28/18 14:28 WBC RBC Hgb Hct MCV MCH MCHC RDW Plt Count Seg Neutrophils % Lymphocytes % Monocytes % Eosinophils % Basophils % Absolute Neutrophils Absolute Lymphocytes Absolute Monocytes Absolute Eosinophils Absolute Basophils Sodium 146.5 H Potassium 3.3 L Chloride 115 H Carbon Dioxide 22 Anion Gap 10 BUN 24 H Creatinine 0.78 Est GFR ( Amer) > 60 Est GFR (Non-Af Amer) > 60 Glucose 137 H Calcium 8.6 Magnesium Total Bilirubin 0.4 AST 19 ALT 25 Alkaline Phosphatase 52 Total Protein 4.8 L Albumin 2.6 L 03/26/18 12:45 Sputum Gram Stain - Final 03/26/18 12:45 Sputum Sputum Culture - Final Mrsa (Meth Resis Staph Aureus) C.albicans/C.dubliniensis Normal Arlette Absent 03/23/18 00:46 Creatine Kinase 30 Impressions: Head CT 03/22/18 21:22 IMPRESSION: No acute intracranial hemorrhage or acute territorial infarct. Mild chronic changes of atrophy and microvascular ischemia. EVIDENCE OF ACUTE STROKE: NO. Chest X-Ray 03/27/18 06:00 IMPRESSION: Diffuse right-sided airspace disease worrisome for pneumonia. Aspiration should be considered. 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 (3) Chronic atrial fibrillation Is this a current diagnosis for this admission?: Yes (4) COPD (chronic obstructive pulmonary disease) Qualifiers: COPD type: unspecified COPD Qualified Code(s): J44.9 - Chronic obstructive pulmonary disease, unspecified Is this a current diagnosis for this admission?: Yes (5) MRSA (methicillin resistant Staphylococcus aureus) septicemia Is this a current diagnosis for this admission?: Yes (6) Sepsis Qualifiers: Sepsis type: methicillin resistant Staphylococcus aureus Qualified Code(s) : A41.02 - Sepsis due to Methicillin resistant Staphylococcus aureus Is this a current diagnosis for this admission?: Yes (7) Acute kidney injury Is this a current diagnosis for this admission?: Yes (8) Anemia Qualifiers: Anemia type: unspecified type Qualified Code(s): D64.9 - Anemia, unspecified Is this a current diagnosis for this admission?: Yes (9) Acute hypoxemic respiratory failure Is this a current diagnosis for this admission?: Yes (10) Hypernatremia Is this a current diagnosis for this admission?: Yes (11) Hypokalemia Is this a current diagnosis for this admission?: Yes - Plan Summary Plan Summary: Continue IV antibiotic, continue noninvasive ventilation status post blood transfusion correct hypokalemia
[2018-03-28] MEDS: LATANOPROST 0.005% OPH SOLN 2.5 ML OU SCH (22:07)
[2018-03-29] MEDS: IPRATROPIUM/ALBUTEROL 0.5-2.5 MG/3 ML AMPUL NEB SCH ×4 (01:39→19:40)
[2018-03-29 06:08] LABS: ALANINE AMINOTRANSFERASE 21 U/L (9-52); ALBUMIN 2.4 g/dL (3.5-5.0); ALKALINE PHOSPHATASE 44 U/L (38-126); ANION GAP 12 (5-19); ASPARTATE AMINO TRANSFERASE 14 U/L (14-36); BILIRUBIN,DIRECT 0.3 mg/dL (0.0-0.4); BILIRUBIN,TOTAL 0.3 mg/dL (0.2-1.3); BLOOD UREA NITROGEN 25 mg/dL (7-20); CALCIUM 8.9 mg/dL (8.4-10.2); CARBON DIOXIDE 21 mmol/L (22-30); CHLORIDE 115 mmol/L (98-107); GLUCOSE 139 mg/dL (75-110); POTASSIUM 4.1 mmol/L (3.6-5.0); SODIUM 148.3 mmol/L (137-145); TOTAL PROTEIN 4.6 g/dL (6.3-8.2)
[2018-03-29] MEDS: HYDROCORTISONE SOD SUCCINATE INJ/PF 100 MG/2 ML SDV IV SCH ×3 (06:12→21:57)
[2018-03-29] MEDS: LANSOPRAZOLE 15 MG TAB.RAP.DR PO SCH (06:13)
[2018-03-29] MEDS: BUDESONIDE NEB 0.5 MG/2 ML AMPUL NEB SCH ×2 (07:48→19:40)
[2018-03-29] MEDS: GABAPENTIN 400 MG CAPSULE PO SCH ×3 (10:59→17:10)
[2018-03-29] MEDS: CYANOCOBALAMIN (VITAMIN B-12) 1,000 MCG TABLET PO SCH (10:59)
[2018-03-29] MEDS: APIXABAN 5 MG TABLET PO SCH ×2 (11:00→21:56)
[2018-03-29] MEDS: GUAIFENESIN 600 MG TABLET.SA PO SCH ×2 (11:00→21:56)
[2018-03-29] MEDS: CHOLECALCIFEROL (D3) 1,000 UNIT TABLET PO SCH (11:00)
[2018-03-29] MEDS: LOSARTAN POTASSIUM 50 MG TABLET PO SCH (11:00)
[2018-03-29] MEDS: CALCIUM CARBONATE 500 MG TABLET PO SCH (11:01)
[2018-03-29] MEDS: POTASSIUM CHLORIDE 10 MEQ TABLET.SA PO SCH (11:01)
[2018-03-29] MEDS: LACTOBACILLUS ACIDOPHILUS 250 MG TAB PO SCH (11:01)
[2018-03-29] MEDS: DRONEDARONE HYDROCHLORIDE 400 MG TABLET PO SCH ×2 (11:01→17:10)
[2018-03-29] MEDS: FERROUS SULFATE 325 MG TABLET PO SCH (11:02)
[2018-03-29] MEDS: DILTIAZEM HCL 240 MG CAPSULE.CR PO SCH ×2 (11:02→21:56)
[2018-03-29] MEDS: FENOFIBRATE NANOCRYSTALLIZED 145 MG TABLET PO SCH (11:02)
[2018-03-29] MEDS: HUM INSULIN NPH/REG INSULIN HM 100 UNIT/1 ML 3 ML SUBCUT SCH ×2 (11:03→21:56)
--- NOTE | 2018-03-29 11:03 | PDOC PROGRESS REPORT ---
Subjective Progress Note for:: 03/29/18 Subjective:: She has MRSA bacteremia/septicemia, transthoracic echo was done not the best study for endocarditis, MIGUELITO is preferred but there is suggestion of endocarditis, on TTE, she will require vancomycin for 4 weeks intravenously, this required monitoring of the vancomycin level. She cannot stay in the hospital for 4 weeks, she will need to be discharged home probably next week with home health that can administer and monitor Vanco level, a PICC line may be necessary. I explained this to patient's daughter, she seems to understand Reason For Visit: PNEUMONIA,MULTIPLE CO-MORBID CONDITIONS Physical Exam Vital Signs: Temp Pulse Resp BP Pulse Ox 98.1 F 84 24 H 163/70 H 97 03/29/18 07:01 03/29/18 07:48 03/29/18 07:48 03/29/18 07:01 03/29/18 07:48 Intake & Output 03/28/18 03/29/18 03/30/18 06:59 06:59 06:59 Intake Total 1697 2105 Balance 1697 2105 Weight 56.4 kg General appearance: PRESENT: mild distress Head exam: PRESENT: atraumatic, normocephalic Eye exam: PRESENT: conjunctiva pink, EOMI, PERRLA Ear exam: PRESENT: normal external ear exam Mouth exam: PRESENT: moist, tongue midline Neck exam: PRESENT: full ROM Respiratory exam: PRESENT: rhonchi Cardiovascular exam: PRESENT: RRR, +S1, +S2 Vascular exam: PRESENT: normal capillary refill GI/Abdominal exam: PRESENT: normal bowel sounds, soft Rectal exam: PRESENT: deferred Neurological exam: PRESENT: alert, CN II-XII grossly intact Psychiatric exam: PRESENT: appropriate affect, normal mood Skin exam: PRESENT: dry, intact, warm Results Laboratory Results: 03/28/18 00:46 03/29/18 04:34 03/28/18 03/28/18 03/29/18 08:21 14:28 04:34 Sodium 146.5 H 148.3 H Potassium 3.3 L 4.1 Chloride 115 H 115 H Carbon Dioxide 22 21 L Anion Gap 10 12 BUN 24 H 25 H Creatinine 0.78 0.76 Est GFR ( Amer) > 60 > 60 Est GFR (Non-Af Amer) > 60 > 60 Glucose 137 H 139 H Calcium 8.6 8.9 Magnesium 2.1 Total Bilirubin 0.4 0.3 AST 19 14 ALT 25 21 Alkaline Phosphatase 52 44 Total Protein 4.8 L 4.6 L Albumin 2.6 L 2.4 L 03/26/18 12:45 Sputum Gram Stain - Final 03/26/18 12:45 Sputum Sputum Culture - Final Mrsa (Meth Resis Staph Aureus) C.albicans/C.dubliniensis Normal Arlette Absent 03/23/18 00:46 Creatine Kinase 30 Impressions: Head CT 03/22/18 21:22 IMPRESSION: No acute intracranial hemorrhage or acute territorial infarct. Mild chronic changes of atrophy and microvascular ischemia. EVIDENCE OF ACUTE STROKE: NO. Chest X-Ray 03/27/18 06:00 IMPRESSION: Diffuse right-sided airspace disease worrisome for pneumonia. Aspiration should be considered. 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 (3) Chronic atrial fibrillation Is this a current diagnosis for this admission?: Yes (4) COPD (chronic obstructive pulmonary disease) Qualifiers: COPD type: unspecified COPD Qualified Code(s): J44.9 - Chronic obstructive pulmonary disease, unspecified Is this a current diagnosis for this admission?: Yes (5) MRSA (methicillin resistant Staphylococcus aureus) septicemia Is this a current diagnosis for this admission?: Yes (6) Sepsis Qualifiers: Sepsis type: methicillin resistant Staphylococcus aureus Qualified Code(s) : A41.02 - Sepsis due to Methicillin resistant Staphylococcus aureus Is this a current diagnosis for this admission?: Yes (7) Acute kidney injury Is this a current diagnosis for this admission?: Yes (8) Anemia Qualifiers: Anemia type: unspecified type Qualified Code(s): D64.9 - Anemia, unspecified Is this a current diagnosis for this admission?: Yes (9) Acute hypoxemic respiratory failure Is this a current diagnosis for this admission?: Yes (10) Hypernatremia Is this a current diagnosis for this admission?: Yes (11) Hypokalemia Is this a current diagnosis for this admission?: Yes - Plan Summary Plan Summary: Continue noninvasive ventilation with BiPAP, consultation from radiology to have PICC line
[2018-03-29] MEDS: VANCOMYCIN HCL 1,000 MG in DEXTROSE 5%-WATER 250 ML IV SCH (12:10)
[2018-03-29] MEDS: LEVALBUTEROL HCL NEB 0.63 MG/3 ML AMPUL NEB PRN (15:57)
[2018-03-29] MEDS: LATANOPROST 0.005% OPH SOLN 2.5 ML OU SCH (21:58)
[2018-03-30] MEDS: IPRATROPIUM/ALBUTEROL 0.5-2.5 MG/3 ML AMPUL NEB SCH ×4 (02:40→19:44)
[2018-03-30] MEDS: HYDROCORTISONE SOD SUCCINATE INJ/PF 100 MG/2 ML SDV IV SCH ×3 (05:32→22:21)
[2018-03-30] MEDS: LANSOPRAZOLE 15 MG TAB.RAP.DR PO SCH (05:32)
[2018-03-30] MEDS: BUDESONIDE NEB 0.5 MG/2 ML AMPUL NEB SCH ×2 (08:12→19:43)
[2018-03-30] MEDS: GUAIFENESIN 600 MG TABLET.SA PO SCH ×2 (09:49→22:22)
[2018-03-30] MEDS: CYANOCOBALAMIN (VITAMIN B-12) 1,000 MCG TABLET PO SCH (09:49)
[2018-03-30] MEDS: DRONEDARONE HYDROCHLORIDE 400 MG TABLET PO SCH ×2 (09:49→18:42)
[2018-03-30] MEDS: LOSARTAN POTASSIUM 50 MG TABLET PO SCH (09:50)
[2018-03-30] MEDS: FERROUS SULFATE 325 MG TABLET PO SCH (09:50)
[2018-03-30] MEDS: LACTOBACILLUS ACIDOPHILUS 250 MG TAB PO SCH (09:50)
[2018-03-30] MEDS: DILTIAZEM HCL 240 MG CAPSULE.CR PO SCH ×2 (09:50→22:22)
[2018-03-30] MEDS: APIXABAN 5 MG TABLET PO SCH ×2 (09:51→22:22)
[2018-03-30] MEDS: FENOFIBRATE NANOCRYSTALLIZED 145 MG TABLET PO SCH (09:51)
[2018-03-30] MEDS: POTASSIUM CHLORIDE 10 MEQ TABLET.SA PO SCH ×2 (09:51→15:46)
[2018-03-30] MEDS: CALCIUM CARBONATE 500 MG TABLET PO SCH (09:52)
[2018-03-30] MEDS: CHOLECALCIFEROL (D3) 1,000 UNIT TABLET PO SCH (09:52)
[2018-03-30] MEDS: GABAPENTIN 400 MG CAPSULE PO SCH ×3 (09:52→18:42)
[2018-03-30] MEDS: HUM INSULIN NPH/REG INSULIN HM 100 UNIT/1 ML 3 ML SUBCUT SCH ×2 (09:53→16:21)
[2018-03-30 11:28] LABS: HEMATOCRIT 32.4 % (36.0-47.0); HEMOGLOBIN 10.7 g/dL (12.0-15.5); MEAN CORPUSCULAR HEMOGLOBIN 27.8 pg (27.0-33.4); MEAN CORPUSCULAR VOLUME 84 fl (80-97); PLATELET COUNT 239 10^3/uL (150-450); RED BLOOD COUNT 3.85 10^6/uL (3.72-5.28); RED CELL DISTRIBUTION WIDTH 17.3 % (11.5-14.0); WHITE BLOOD COUNT 12.1 10^3/uL (4.0-10.5)
[2018-03-30 11:40] LABS: ALANINE AMINOTRANSFERASE 24 U/L (9-52); ALBUMIN 2.5 g/dL (3.5-5.0); ALKALINE PHOSPHATASE 46 U/L (38-126); ANION GAP 9 (5-19); ASPARTATE AMINO TRANSFERASE 18 U/L (14-36); BILIRUBIN,DIRECT 0.3 mg/dL (0.0-0.4); BILIRUBIN,TOTAL 0.5 mg/dL (0.2-1.3); BLOOD UREA NITROGEN 23 mg/dL (7-20); CALCIUM 8.7 mg/dL (8.4-10.2); CARBON DIOXIDE 26 mmol/L (22-30); CHLORIDE 112 mmol/L (98-107); GLUCOSE 155 mg/dL (75-110); POTASSIUM 3.2 mmol/L (3.6-5.0); SODIUM 146.8 mmol/L (137-145); TOTAL PROTEIN 4.7 g/dL (6.3-8.2)
[2018-03-30 11:45] LABS: VANCOMYCIN,TROUGH 10.2 ug/mL (5.0-20.0)
[2018-03-30 11:52] LABS: ABSOLUTE LYMPHOCYTES# (MANUAL) 1.1 10^3/uL (0.5-4.7); ABSOLUTE MONOCYTES # (MANUAL) 0.1 10^3/uL (0.1-1.4); ABSOLUTE NEUTROPHILS# (MANUAL) 10.9 10^3/uL (1.7-8.2); BASOPHILS % (MANUAL) 0 % (0-2); EOSINOPHILS % (MANUAL) 0 % (0-6); LYMPHOCYTES % (MANUAL) 9 % (13-45); MONOCYTES % (MANUAL) 1 % (3-13); SEGMENTED NEUTROPHILS % (MAN) 90 % (42-78); TOTAL CELLS COUNTED 100
[2018-03-30 11:53] LABS: ANISOCYTOSIS 1+; OVALOCYTES 1+; PLATELET COMMENT ADEQUATE; POIKILOCYTOSIS 1+; TOXIC GRANULATION 1+; TOXIC VACUOLATION PRESENT
--- NOTE | 2018-03-30 12:06 | PDOC PROGRESS REPORT ---
Subjective Progress Note for:: 03/30/18 Subjective:: She has MRSA bacteremia/septicemia, transthoracic echo was done not the best study for endocarditis, MIGUELITO is preferred but there is suggestion of endocarditis, on TTE, she will require vancomycin for 4 weeks intravenously, this required monitoring of the vancomycin level. She cannot stay in the hospital for 4 weeks, she will need to be discharged home probably next week with home health that can administer and monitor Vanco level, a PICC line may be necessary. I explained this to patient's daughter, she seems to understand she is third spacing from hypoalbuminemia, she also have a low serum potassium today Reason For Visit: PNEUMONIA,MULTIPLE CO-MORBID CONDITIONS Physical Exam Vital Signs: Temp Pulse Resp BP Pulse Ox 97.9 F 85 28 H 172/62 H 98 03/30/18 06:58 03/30/18 08:12 03/30/18 08:12 03/30/18 06:58 03/30/18 08:12 Intake & Output 03/29/18 03/30/18 03/31/18 06:59 06:59 06:59 Intake Total 2105 1082 Output Total 0 Balance 2105 1082 Weight 57.8 kg General appearance: PRESENT: mild distress Eye exam: PRESENT: PERRLA Respiratory exam: PRESENT: rhonchi Cardiovascular exam: PRESENT: +S1, +S2 GI/Abdominal exam: PRESENT: soft Neurological exam: PRESENT: alert Results Laboratory Results: 03/30/18 11:03 03/30/18 11:03 03/30/18 03/30/18 11:03 11:03 WBC 12.1 H RBC 3.85 Hgb 10.7 L Hct 32.4 L MCV 84 MCH 27.8 MCHC 33.0 RDW 17.3 H Plt Count 239 Seg Neutrophils % Not Reportable Lymphocytes % Not Reportable Monocytes % Not Reportable Eosinophils % Not Reportable Basophils % Not Reportable Absolute Neutrophils Not Reportable Absolute Lymphocytes Not Reportable Absolute Monocytes Not Reportable Absolute Eosinophils Not Reportable Absolute Basophils Not Reportable Sodium 146.8 H Potassium 3.2 L Chloride 112 H Carbon Dioxide 26 Anion Gap 9 BUN 23 H Creatinine 0.69 Est GFR ( Amer) > 60 Est GFR (Non-Af Amer) > 60 Glucose 155 H Calcium 8.7 Total Bilirubin 0.5 AST 18 ALT 24 Alkaline Phosphatase 46 Total Protein 4.7 L Albumin 2.5 L 03/23/18 00:46 Creatine Kinase 30 Impressions: Head CT 03/22/18 21:22 IMPRESSION: No acute intracranial hemorrhage or acute territorial infarct. Mild chronic changes of atrophy and microvascular ischemia. EVIDENCE OF ACUTE STROKE: NO. Chest X-Ray 03/27/18 06:00 IMPRESSION: Diffuse right-sided airspace disease worrisome for pneumonia. Aspiration should be considered. 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 (3) Chronic atrial fibrillation Is this a current diagnosis for this admission?: Yes (4) COPD (chronic obstructive pulmonary disease) Qualifiers: COPD type: unspecified COPD Qualified Code(s): J44.9 - Chronic obstructive pulmonary disease, unspecified Is this a current diagnosis for this admission?: Yes (5) MRSA (methicillin resistant Staphylococcus aureus) septicemia Is this a current diagnosis for this admission?: Yes Plan: Patient will need vancomycin for 4 weeks, consultation will be requested from discharge planning to make arrangement for outpatient IV antibiotic, vancomycin , she has stayed already 7 days in the hospital we need to have 3 more weeks of IV antibiotic (6) Sepsis Qualifiers: Sepsis type: methicillin resistant Staphylococcus aureus Qualified Code(s) : A41.02 - Sepsis due to Methicillin resistant Staphylococcus aureus Is this a current diagnosis for this admission?: Yes (7) Acute kidney injury Is this a current diagnosis for this admission?: Yes (8) Anemia Qualifiers: Anemia type: unspecified type Qualified Code(s): D64.9 - Anemia, unspecified Is this a current diagnosis for this admission?: Yes (9) Acute hypoxemic respiratory failure Is this a current diagnosis for this admission?: Yes Plan: She continues to require noninvasive ventilation with BiPAP (10) Hypernatremia Is this a current diagnosis for this admission?: Yes (11) Hypokalemia Is this a current diagnosis for this admission?: Yes Plan: Replace potassium (12) Hypoalbuminemia Is this a current diagnosis for this admission?: Yes Plan: Due to acute illness
[2018-03-30] MEDS: VANCOMYCIN HCL 1,000 MG in DEXTROSE 5%-WATER 250 ML IV SCH (14:00)
[2018-03-30] MEDS: LATANOPROST 0.005% OPH SOLN 2.5 ML OU SCH (22:23)
[2018-03-31] MEDS: IPRATROPIUM/ALBUTEROL 0.5-2.5 MG/3 ML AMPUL NEB SCH ×4 (01:48→19:16)
[2018-03-31] MEDS: VANCOMYCIN HCL 1,500 MG in DEXTROSE 5%-WATER 250 ML IV SCH (05:20)
[2018-03-31] MEDS: HYDROCORTISONE SOD SUCCINATE INJ/PF 100 MG/2 ML SDV IV SCH (05:21)
[2018-03-31] MEDS: LANSOPRAZOLE 15 MG TAB.RAP.DR PO SCH (05:21)
[2018-03-31 06:08] LABS: HEMATOCRIT 28.2 % (36.0-47.0); HEMOGLOBIN 9.5 g/dL (12.0-15.5); MEAN CORPUSCULAR HEMOGLOBIN 28.7 pg (27.0-33.4); MEAN CORPUSCULAR HGB CONC 33.7 g/dL (32.0-36.0); MEAN CORPUSCULAR VOLUME 85 fl (80-97); PLATELET COUNT 219 10^3/uL (150-450); RED BLOOD COUNT 3.31 10^6/uL (3.72-5.28); RED CELL DISTRIBUTION WIDTH 17.5 % (11.5-14.0); WHITE BLOOD COUNT 9.2 10^3/uL (4.0-10.5)
[2018-03-31 06:35] LABS: ALANINE AMINOTRANSFERASE 21 U/L (9-52); ALBUMIN 2.3 g/dL (3.5-5.0); ALKALINE PHOSPHATASE 43 U/L (38-126); ANION GAP 8 (5-19); ASPARTATE AMINO TRANSFERASE 13 U/L (14-36); BILIRUBIN,DIRECT 0.3 mg/dL (0.0-0.4); BILIRUBIN,TOTAL 0.3 mg/dL (0.2-1.3); BLOOD UREA NITROGEN 25 mg/dL (7-20); CALCIUM 8.6 mg/dL (8.4-10.2); CARBON DIOXIDE 25 mmol/L (22-30); CHLORIDE 113 mmol/L (98-107); GLUCOSE 181 mg/dL (75-110); POTASSIUM 3.9 mmol/L (3.6-5.0); SODIUM 146.1 mmol/L (137-145); TOTAL PROTEIN 4.5 g/dL (6.3-8.2)
[2018-03-31 06:46] LABS: ABSOLUTE LYMPHOCYTES# (MANUAL) 1.1 10^3/uL (0.5-4.7); ABSOLUTE MONOCYTES # (MANUAL) 0.1 10^3/uL (0.1-1.4); BASOPHILS % (MANUAL) 0 % (0-2); EOSINOPHILS % (MANUAL) 0 % (0-6); LYMPHOCYTES % (MANUAL) 12 % (13-45); MONOCYTES % (MANUAL) 1 % (3-13); MYELOCYTES % (MANUAL) 2 % (0); SEGMENTED NEUTROPHILS % (MAN) 82 % (42-78); TOTAL CELLS COUNTED 100
[2018-03-31 06:49] LABS: ANISOCYTOSIS 1+; HYPOCHROMASIA 1+; OVALOCYTES 1+
[2018-03-31 06:50] LABS: PLATELET COMMENT ADEQUATE
[2018-03-31 06:52] LABS: METAMYELOCYTES % (MANUAL) 3 % (0)
[2018-03-31] MEDS: BUDESONIDE NEB 0.5 MG/2 ML AMPUL NEB SCH ×2 (08:02→19:16)
[2018-03-31] MEDS: FENOFIBRATE NANOCRYSTALLIZED 145 MG TABLET PO SCH (09:18)
[2018-03-31] MEDS: CHOLECALCIFEROL (D3) 1,000 UNIT TABLET PO SCH (09:19)
[2018-03-31] MEDS: POTASSIUM CHLORIDE 10 MEQ TABLET.SA PO SCH ×2 (09:19→13:33)
[2018-03-31] MEDS: CALCIUM CARBONATE 500 MG TABLET PO SCH (09:20)
[2018-03-31] MEDS: FERROUS SULFATE 325 MG TABLET PO SCH (09:20)
[2018-03-31] MEDS: LACTOBACILLUS ACIDOPHILUS 250 MG TAB PO SCH (09:20)
[2018-03-31] MEDS: LOSARTAN POTASSIUM 50 MG TABLET PO SCH (09:21)
[2018-03-31] MEDS: CYANOCOBALAMIN (VITAMIN B-12) 1,000 MCG TABLET PO SCH (09:21)
[2018-03-31] MEDS: GUAIFENESIN 600 MG TABLET.SA PO SCH ×2 (09:21→21:07)
[2018-03-31] MEDS: HUM INSULIN NPH/REG INSULIN HM 100 UNIT/1 ML 3 ML SUBCUT SCH ×3 (09:22→17:11)
[2018-03-31] MEDS: GABAPENTIN 400 MG CAPSULE PO SCH ×3 (09:22→17:10)
[2018-03-31] MEDS: DILTIAZEM HCL 240 MG CAPSULE.CR PO SCH ×2 (09:23→21:08)
--- NOTE | 2018-03-31 09:25 | PDOC PROGRESS REPORT ---
Subjective Progress Note for:: 03/31/18 Subjective:: Patient was admitted because of the shortness of the breath pneumonia and positive for MRSA and endocarditis Since currently on a vancomycin's finish the 1 week require another 3 weeks Patient still require a BiPAP on and off Patient's denied any chest pain denied any shortness of the breath but still very weak Patient's daughter is on the bedside and discussed with the patient and the daughter to go to the rehab but patient and daughter refused to go to the rehab and preferred to go home with the home health Reason For Visit: PNEUMONIA,MULTIPLE CO-MORBID CONDITIONS Physical Exam Vital Signs: Temp Pulse Resp BP Pulse Ox 97.8 F 74 18 169/61 H 99 03/31/18 06:47 03/31/18 06:47 03/31/18 06:47 03/31/18 06:47 03/31/18 06:47 Intake & Output 03/30/18 03/31/18 04/01/18 06:59 06:59 06:59 Intake Total 1082 1602 Output Total 0 Balance 1082 1602 Weight 57.8 kg 55.7 kg General appearance: PRESENT: no acute distress, well-developed, well-nourished Head exam: PRESENT: atraumatic, normocephalic Eye exam: PRESENT: conjunctiva pink, EOMI, PERRLA. ABSENT: scleral icterus Ear exam: PRESENT: normal external ear exam Mouth exam: PRESENT: moist, tongue midline Neck exam: PRESENT: full ROM. ABSENT: carotid bruit, JVD, lymphadenopathy, thyromegaly Respiratory exam: PRESENT: decreased breath sounds Cardiovascular exam: PRESENT: RRR. ABSENT: diastolic murmur, rubs, systolic murmur Pulses: PRESENT: normal dorsalis pedis pul, +2 pedal pulses bilateral Vascular exam: PRESENT: normal capillary refill GI/Abdominal exam: PRESENT: normal bowel sounds, soft. ABSENT: distended, guarding, mass, organolmegaly, rebound, tenderness Rectal exam: PRESENT: deferred Extremities exam: ABSENT: pedal edema Additional comments: Mild puffiness in the both upper extremity Neurological exam: PRESENT: alert, awake, oriented to person, oriented to place , oriented to time, oriented to situation, CN II-XII grossly intact. ABSENT: motor sensory deficit Psychiatric exam: PRESENT: appropriate affect, normal mood. ABSENT: homicidal ideation, suicidal ideation Skin exam: PRESENT: dry, intact, warm. ABSENT: cyanosis, rash Results Laboratory Results: 03/31/18 04:50 03/31/18 04:50 03/30/18 03/30/18 03/31/18 11:03 11:03 04:50 WBC 12.1 H 9.2 RBC 3.85 3.31 L Hgb 10.7 L 9.5 L Hct 32.4 L 28.2 L MCV 84 85 MCH 27.8 28.7 MCHC 33.0 33.7 RDW 17.3 H 17.5 H Plt Count 239 219 Seg Neutrophils % Not Reportable Not Reportable Lymphocytes % Not Reportable Not Reportable Monocytes % Not Reportable Not Reportable Eosinophils % Not Reportable Not Reportable Basophils % Not Reportable Not Reportable Absolute Neutrophils Not Reportable Not Reportable Absolute Lymphocytes Not Reportable Not Reportable Absolute Monocytes Not Reportable Not Reportable Absolute Eosinophils Not Reportable Not Reportable Absolute Basophils Not Reportable Not Reportable Sodium 146.8 H Potassium 3.2 L Chloride 112 H Carbon Dioxide 26 Anion Gap 9 BUN 23 H Creatinine 0.69 Est GFR ( Amer) > 60 Est GFR (Non-Af Amer) > 60 Glucose 155 H Calcium 8.7 Total Bilirubin 0.5 AST 18 ALT 24 Alkaline Phosphatase 46 Total Protein 4.7 L Albumin 2.5 L 03/31/18 04:50 WBC RBC Hgb Hct MCV MCH MCHC RDW Plt Count Seg Neutrophils % Lymphocytes % Monocytes % Eosinophils % Basophils % Absolute Neutrophils Absolute Lymphocytes Absolute Monocytes Absolute Eosinophils Absolute Basophils Sodium 146.1 H Potassium 3.9 Chloride 113 H Carbon Dioxide 25 Anion Gap 8 BUN 25 H Creatinine 0.73 Est GFR ( Amer) > 60 Est GFR (Non-Af Amer) > 60 Glucose 181 H Calcium 8.6 Total Bilirubin 0.3 AST 13 L ALT 21 Alkaline Phosphatase 43 Total Protein 4.5 L Albumin 2.3 L 03/23/18 00:46 Creatine Kinase 30 Impressions: Head CT 03/22/18 21:22 IMPRESSION: No acute intracranial hemorrhage or acute territorial infarct. Mild chronic changes of atrophy and microvascular ischemia. EVIDENCE OF ACUTE STROKE: NO. Chest X-Ray 03/27/18 06:00 IMPRESSION: Diffuse right-sided airspace disease worrisome for pneumonia. Aspiration should be considered. 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 (3) Anemia Qualifiers: Anemia type: unspecified type Qualified Code(s): D64.9 - Anemia, unspecified Is this a current diagnosis for this admission?: Yes (4) Chronic atrial fibrillation Is this a current diagnosis for this admission?: Yes (5) Hypoalbuminemia Is this a current diagnosis for this admission?: Yes (6) MRSA (methicillin resistant Staphylococcus aureus) septicemia Is this a current diagnosis for this admission?: Yes (7) Pneumonia Qualifiers: Pneumonia type: due to unspecified organism Laterality: bilateral Lung location: lower lobe of lung Qualified Code(s): J18.1 - Lobar pneumonia, unspecified organism Is this a current diagnosis for this admission?: Yes (8) COPD (chronic obstructive pulmonary disease) Qualifiers: COPD type: unspecified COPD Qualified Code(s): J44.9 - Chronic obstructive pulmonary disease, unspecified Is this a current diagnosis for this admission?: Yes (9) Chronic kidney disease Qualifiers: Chronic kidney disease stage: stage 2 (mild) Qualified Code(s): N18.2 - Chronic kidney disease, stage 2 (mild) Is this a current diagnosis for this admission?: Yes (10) Congestive heart failure Qualifiers: Heart failure type: diastolic Heart failure chronicity: acute on chronic Qualified Code(s): I50.33 - Acute on chronic diastolic (congestive) heart failure Is this a current diagnosis for this admission?: Yes (11) Coronary artery disease Qualifiers: Coronary Disease-Associated Artery/Lesion type: unspecified vessel or lesion type Is this a current diagnosis for this admission?: Yes (12) Endocarditis Qualifiers: Endocarditis type: unspecified Chronicity: acute Qualified Code(s): I33.9 - Acute and subacute endocarditis, unspecified Is this a current diagnosis for this admission?: Yes - Time Time Spent with patient: 25-34 minutes Medications reviewed and adjusted accordingly: Yes Anticipated discharge: Home with Homehealth Within: Other - Inpatient Certification Medical Necessity: Need Close Monitoring Due to Risk of Patient Decompensation, Need for IV Antibiotics Post Hospital Care: D/C Storage Manager Documentation - Plan Summary Plan Summary: Continues IV vancomycin continues to follow with the pulmonary before the discharge will assess the patient's require any BiPAP at night will assist her respiratory status discussed with the respiratory and discussed with the nursing staff Will DC the IV hydralazine and start on the p.o. prednisone Discussed with the patient and her daughter about the all the patient's plants discharge patients preferred to go home not want to go to the rehab patient on multiple comorbidity
[2018-03-31 10:03] LABS: PATH REVIEW PATHOLOGIST REVIEWED
--- NOTE | 2018-03-31 12:00 | PDOC PROGRESS REPORT ---
Subjective Progress Note for:: 03/31/18 Subjective:: Unchanged Reason For Visit: PNEUMONIA,MULTIPLE CO-MORBID CONDITIONS Physical Exam Vital Signs: Temp Pulse Resp BP Pulse Ox 97.8 F 78 22 H 169/61 H 94 03/31/18 06:47 03/31/18 08:02 03/31/18 08:02 03/31/18 06:47 03/31/18 08:02 Intake & Output 03/30/18 03/31/18 04/01/18 06:59 06:59 06:59 Intake Total 1082 1602 Output Total 0 Balance 1082 1602 Weight 57.8 kg 55.7 kg General appearance: PRESENT: no acute distress, disheveled, obese Head exam: PRESENT: atraumatic, normocephalic Eye exam: PRESENT: conjunctiva pale, EOMI. ABSENT: nystagmus, periorbital swelling, scleral icterus Mouth exam: PRESENT: dry mucosa, neck supple, tongue midline Neck exam: PRESENT: tracheostomy. ABSENT: carotid bruit, JVD, lymphadenopathy, thyromegaly, tracheal deviation Respiratory exam: PRESENT: decreased breath sounds, prolonged expiratory phas, rales, rhonchi, unlabored. ABSENT: retraction, stridor Cardiovascular exam: PRESENT: RRR, +S1, +S2. ABSENT: tachycardia Pulses: PRESENT: normal radial pulses GI/Abdominal exam: PRESENT: normal bowel sounds, soft Extremities exam: ABSENT: calf tenderness, clubbing, joint swelling Musculoskeletal exam: ABSENT: ambulatory, deformity, dislocation Neurological exam: PRESENT: awake, oriented to person, oriented to place. ABSENT: oriented to time, oriented to situation Skin exam: PRESENT: dry, warm Results Laboratory Results: 03/31/18 04:50 03/31/18 04:50 03/31/18 03/31/18 04:50 04:50 WBC 9.2 RBC 3.31 L Hgb 9.5 L Hct 28.2 L MCV 85 MCH 28.7 MCHC 33.7 RDW 17.5 H Plt Count 219 Seg Neutrophils % Not Reportable Lymphocytes % Not Reportable Monocytes % Not Reportable Eosinophils % Not Reportable Basophils % Not Reportable Absolute Neutrophils Not Reportable Absolute Lymphocytes Not Reportable Absolute Monocytes Not Reportable Absolute Eosinophils Not Reportable Absolute Basophils Not Reportable Sodium 146.1 H Potassium 3.9 Chloride 113 H Carbon Dioxide 25 Anion Gap 8 BUN 25 H Creatinine 0.73 Est GFR ( Amer) > 60 Est GFR (Non-Af Amer) > 60 Glucose 181 H Calcium 8.6 Total Bilirubin 0.3 AST 13 L ALT 21 Alkaline Phosphatase 43 Total Protein 4.5 L Albumin 2.3 L 03/23/18 00:46 Creatine Kinase 30 Impressions: Head CT 03/22/18 21:22 IMPRESSION: No acute intracranial hemorrhage or acute territorial infarct. Mild chronic changes of atrophy and microvascular ischemia. EVIDENCE OF ACUTE STROKE: NO. Chest X-Ray 03/27/18 06:00 IMPRESSION: Diffuse right-sided airspace disease worrisome for pneumonia. Aspiration should be considered. Assessment & Plan - Diagnosis (1) Right lower lobe pneumonia Qualifiers: Pneumonia type: due to methicillin-resistant Staphylococcus aureus (MRSA) Qualified Code(s): J15.212 - Pneumonia due to Methicillin resistant Staphylococcus aureus Is this a current diagnosis for this admission?: Yes Plan: We will check ABG last ABG showed a respiratory alkalosis and borderline hypoxia may be necessary to increase FiO2 to decrease except respiratory rate 03/26/18 12:45 Gram Stain - Final Sputum Sputum Culture - Final Mrsa (Meth Resis Staph Aureus) C.albicans/C.dubliniensis Normal Arlette Absent 03/22/18 21:15 Blood Culture - Final Blood Mrsa (Meth Resis Staph Aureus) (2) Hiatal hernia with GERD Is this a current diagnosis for this admission?: Yes Plan: We will consult surgeon evaluate for possible laparoscopic Júnior when patient is more stable (3) Chronic atrial fibrillation Is this a current diagnosis for this admission?: Yes Plan: Appears to be stable at this time - Plan Summary Plan Summary: The above patient has failed BiPAP. This patient would benefit from noninvasive mechanical ventilation via the trilogy AVAPS/AE and faster responding AVAPS rates. 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 The severity of the patient's condition will lead to future hospitalizations and readmissions as well as life-threatening situations without the use of this device trilogy home vent needed for respiratory failure. [facility] or [facility] to follow for trilogy set up.
[2018-03-31] MEDS: PREDNISONE 20 MG TABLET PO SCH ×2 (12:39→17:10)
[2018-03-31] MEDS: DRONEDARONE HYDROCHLORIDE 400 MG TABLET PO SCH ×2 (12:40→17:10)
[2018-03-31] MEDS: APIXABAN 5 MG TABLET PO SCH ×2 (12:40→21:07)
[2018-03-31 13:22] LABS: ARTERIAL BLOOD BASE EXCESS 0.2 mmol/L; ARTERIAL BLOOD H2CO3 0.83 mmol/L (1.05-1.35); ARTERIAL BLOOD HCO3 22.3 mmol/L (20-26); ARTERIAL BLOOD O2 SATURATION 96.3 % (94-98); ARTERIAL BLOOD PCO2 27.7 mmHg (35-45); ARTERIAL BLOOD PH 7.52 (7.35-7.45); ARTERIAL BLOOD PO2 72.9 mmHg (80-100); ARTERIAL BLOOD TOTAL CO2 23.2 mmol/L (21-25)
[2018-03-31 13:24] LABS: ARTERIAL BLOOD FIO2 2L
--- NOTE | 2018-03-31 13:37 | RADIOLOGY REPORT (SQ) ---
EXAM DESCRIPTION: PICC INSERTION; U/S GUIDE FOR VASCULAR ACCESS; CHEST SINGLE VIEW COMPLETED DATE/TIME: 03/31/2018 12:25 pm; 03/31/2018 12:23 pm REASON FOR STUDY: MRSA BACTEREMIA ; IV ACCESS FOR ABX; sob COMPARISON: AP chest 03/22/2018, 03/27/2018 CT chest 03/23/2018 FLUOROSCOPY TIME: No fluoro was used 2 digital chest radiographs and 1 ultrasound images saved to PACS. TECHNIQUE: Radiographic and ultrasound guided PICC placement. LIMITATIONS: None. PROCEDURE: After written consent and assessment were obtained, Ultrasound evaluation of potential ac cess sites were performed. After successfully identifying a patent right basilic vein, the right arm was prepped and draped in a sterile fashion along with the ultrasound probe. The entry site was anest hetized with 1% lidocaine. A 21 gauge 7 cm needle was advanced through the skin and into the basilic vein under live ultrasound guidance. An ultrasound image was saved to PACS confirming access site. A .018 guide wire was then inserted through the needle and into the venous system. The needle was the removed and an 11 blade scalpel was used to make a 1cm skin incision. A 5 fr peel-away sheath was a dvanced over the wire and into the venous system. A measurement was then made using the existing wire and live fluoroscopic guidance. The wire was then removed and the trimmed. The PICC was advanced thr ough the peel-away sheath and into the venous system. The peel-away sheath was removed and the cathet er was adhered to the patients arm with a stat lock. The catheter was then aspirated and flushed and a sterile bandage was placed over the access site. A chest x-ray was saved to PACS confirming the ca theter tip within the superior vena cava. The post PICC catheter placement chest film demonstrates the tip of the catheter is in the superior v yared cava. There is patchy right-sided airspace disease unchanged from 03/27/2018. Left lung clear. Stable cardiomegaly. Retrocardiac hiatal hernia. IMPRESSION: SUCCESSFUL PLACEMENT OF A 5 FR DUAL LUMEN 30 CM PICC IN THE right basilic VEIN. COMMENT: Patient medication list reviewed: Yes- Quality ID# [id number]:Eligible professional attests to doc umenting in the medical record they obtained, updated, or reviewed the patient's current medications. . Quality ID 145: Final reports for procedures using fluoroscopy that document radiation exposure casey savanah, or exposure time and number of fluorographic images (if radiation exposure indices are not avail able) Quality ID #76: The patient was prepped and draped using maximum sterile barrier technique including cap, mask, sterile gown, sterile gloves, a large sterile sheet, hand hygiene, and 2% Chlorhexidine fo r cutaneous antisepsis. When ultrasound is used, sterile ultrasound techniques are followed requiring sterile gel and sterile probes. TECHNICAL DOCUMENTATION: JOB ID: [id number] [employer]- All Rights Reserved rev Reading location - IP/workstation name: [facility]
[2018-03-31] MEDS: LEVALBUTEROL HCL NEB 0.63 MG/3 ML AMPUL NEB PRN (17:36)
[2018-03-31] MEDS ORDERED: NORMAL SALINE 10 ML SDV (AFTER EACH USE) IV PRN (19:50)
[2018-03-31] MEDS: LATANOPROST 0.005% OPH SOLN 2.5 ML OU SCH (21:08)
[2018-03-31] MEDS: NORMAL SALINE 10 ML SDV (SCHEDULED) IV SCH (21:08)
[2018-03-31] MEDS: INSULIN LISPRO 100 UNIT/ML 3 ML VIAL SUBCUT PRN (22:16)
[2018-04-01] MEDS: IPRATROPIUM/ALBUTEROL 0.5-2.5 MG/3 ML AMPUL NEB SCH ×4 (01:53→19:38)
[2018-04-01] MEDS: LANSOPRAZOLE 15 MG TAB.RAP.DR PO SCH (05:13)
[2018-04-01] MEDS: VANCOMYCIN HCL 1,500 MG in DEXTROSE 5%-WATER 250 ML IV SCH (05:13)
[2018-04-01] MEDS: HUM INSULIN NPH/REG INSULIN HM 100 UNIT/1 ML 3 ML SUBCUT SCH ×3 (07:43→16:32)
[2018-04-01] MEDS: BUDESONIDE NEB 0.5 MG/2 ML AMPUL NEB SCH ×2 (07:56→19:38)
[2018-04-01] MEDS: DRONEDARONE HYDROCHLORIDE 400 MG TABLET PO SCH ×2 (09:48→17:38)
[2018-04-01] MEDS: POTASSIUM CHLORIDE 10 MEQ TABLET.SA PO SCH ×2 (09:48→13:27)
[2018-04-01] MEDS: DILTIAZEM HCL 240 MG CAPSULE.CR PO SCH ×2 (09:48→21:07)
[2018-04-01] MEDS: CYANOCOBALAMIN (VITAMIN B-12) 1,000 MCG TABLET PO SCH (09:48)
[2018-04-01] MEDS: PREDNISONE 20 MG TABLET PO SCH ×2 (09:49→17:38)
[2018-04-01] MEDS: GABAPENTIN 400 MG CAPSULE PO SCH ×3 (09:49→17:38)
[2018-04-01] MEDS: FERROUS SULFATE 325 MG TABLET PO SCH (09:49)
[2018-04-01] MEDS: APIXABAN 5 MG TABLET PO SCH ×2 (09:49→21:07)
[2018-04-01] MEDS: CHOLECALCIFEROL (D3) 1,000 UNIT TABLET PO SCH (09:50)
[2018-04-01] MEDS: NORMAL SALINE 10 ML SDV (SCHEDULED) IV SCH ×2 (09:50→21:08)
[2018-04-01] MEDS: LACTOBACILLUS ACIDOPHILUS 250 MG TAB PO SCH (09:50)
[2018-04-01] MEDS: CALCIUM CARBONATE 500 MG TABLET PO SCH (09:51)
[2018-04-01] MEDS: LOSARTAN POTASSIUM 50 MG TABLET PO SCH (09:51)
[2018-04-01] MEDS: GUAIFENESIN 600 MG TABLET.SA PO SCH ×2 (09:51→21:07)
[2018-04-01] MEDS: FENOFIBRATE NANOCRYSTALLIZED 145 MG TABLET PO SCH (09:51)
--- NOTE | 2018-04-01 10:10 | PDOC PROGRESS REPORT ---
Subjective Progress Note for:: 04/01/18 Subjective:: Patient was admitted because of the shortness of the breath pneumonia and positive for MRSA and endocarditis Since currently on a vancomycin's finish the 1 week require another 3 weeks Patient still require a BiPAP on and off Patient's denied any chest pain denied any shortness of the breath but still very weak Patient's daughter is on the bedside and discussed with the patient and the daughter to go to the rehab but patient and daughter refused to go to the rehab and preferred to go home with the home health Reason For Visit: PNEUMONIA,MULTIPLE CO-MORBID CONDITIONS Physical Exam Vital Signs: Temp Pulse Resp BP Pulse Ox 98.4 F 74 18 149/64 H 98 04/01/18 07:57 04/01/18 07:57 04/01/18 07:57 04/01/18 07:57 04/01/18 07:57 Intake & Output 03/31/18 04/01/18 04/02/18 06:59 06:59 06:59 Intake Total 1602 1324 Output Total 200 Balance 1602 1124 Weight 55.7 kg General appearance: PRESENT: no acute distress, well-developed, well-nourished Head exam: PRESENT: atraumatic, normocephalic Eye exam: PRESENT: conjunctiva pink, EOMI, PERRLA. ABSENT: scleral icterus Ear exam: PRESENT: normal external ear exam Mouth exam: PRESENT: moist, tongue midline Neck exam: PRESENT: full ROM. ABSENT: carotid bruit, JVD, lymphadenopathy, thyromegaly Respiratory exam: PRESENT: decreased breath sounds Cardiovascular exam: PRESENT: RRR. ABSENT: diastolic murmur, rubs, systolic murmur Pulses: PRESENT: normal dorsalis pedis pul, +2 pedal pulses bilateral Vascular exam: PRESENT: normal capillary refill GI/Abdominal exam: PRESENT: normal bowel sounds, soft. ABSENT: distended, guarding, mass, organolmegaly, rebound, tenderness Rectal exam: PRESENT: deferred Extremities exam: ABSENT: pedal edema Neurological exam: PRESENT: alert, awake, oriented to person, oriented to place , oriented to time, oriented to situation, CN II-XII grossly intact. ABSENT: motor sensory deficit Psychiatric exam: PRESENT: appropriate affect, normal mood. ABSENT: homicidal ideation, suicidal ideation Skin exam: PRESENT: dry, intact, warm. ABSENT: cyanosis, rash Results Laboratory Results: 03/31/18 04:50 03/31/18 04:50 03/31/18 12:45 Carbonic Acid 0.83 L HCO3/H2CO3 Ratio 26:1 ABG pH 7.52 H ABG pCO2 27.7 L ABG pO2 72.9 L ABG HCO3 22.3 ABG O2 Saturation 96.3 ABG Base Excess 0.2 FiO2 2L 03/23/18 00:46 Creatine Kinase 30 Impressions: Head CT 03/22/18 21:22 IMPRESSION: No acute intracranial hemorrhage or acute territorial infarct. Mild chronic changes of atrophy and microvascular ischemia. EVIDENCE OF ACUTE STROKE: NO. Chest X-Ray 03/31/18 00:00 IMPRESSION: SUCCESSFUL PLACEMENT OF A 5 FR DUAL LUMEN 30 CM PICC IN THE right basilic VEIN. Interventional Vascular Procedure 03/31/18 00:00 IMPRESSION: SUCCESSFUL PLACEMENT OF A 5 FR DUAL LUMEN 30 CM PICC IN THE right basilic VEIN. PICC Line Insertion 03/31/18 00:00 IMPRESSION: SUCCESSFUL PLACEMENT OF A 5 FR DUAL LUMEN 30 CM PICC IN THE right basilic VEIN. Assessment & Plan - Diagnosis (1) Acute hypoxemic respiratory failure Is this a current diagnosis for this admission?: Yes (2) [place] disease Is this a current diagnosis for this admission?: Yes (3) Anemia Qualifiers: Anemia type: unspecified type Qualified Code(s): D64.9 - Anemia, unspecified Is this a current diagnosis for this admission?: Yes (4) Chronic atrial fibrillation Is this a current diagnosis for this admission?: Yes (5) Hypoalbuminemia Is this a current diagnosis for this admission?: Yes (6) MRSA (methicillin resistant Staphylococcus aureus) septicemia Is this a current diagnosis for this admission?: Yes (7) Pneumonia Qualifiers: Pneumonia type: due to unspecified organism Laterality: bilateral Lung location: lower lobe of lung Qualified Code(s): J18.1 - Lobar pneumonia, unspecified organism Is this a current diagnosis for this admission?: Yes (8) COPD (chronic obstructive pulmonary disease) Qualifiers: COPD type: unspecified COPD Qualified Code(s): J44.9 - Chronic obstructive pulmonary disease, unspecified Is this a current diagnosis for this admission?: Yes (9) Chronic kidney disease Qualifiers: Chronic kidney disease stage: stage 2 (mild) Qualified Code(s): N18.2 - Chronic kidney disease, stage 2 (mild) Is this a current diagnosis for this admission?: Yes (10) Congestive heart failure Qualifiers: Heart failure type: diastolic Heart failure chronicity: acute on chronic Qualified Code(s): I50.33 - Acute on chronic diastolic (congestive) heart failure Is this a current diagnosis for this admission?: Yes (11) Coronary artery disease Qualifiers: Coronary Disease-Associated Artery/Lesion type: unspecified vessel or lesion type Is this a current diagnosis for this admission?: Yes (12) Endocarditis Qualifiers: Endocarditis type: unspecified Chronicity: acute Qualified Code(s): I33.9 - Acute and subacute endocarditis, unspecified Is this a current diagnosis for this admission?: Yes - Time Time Spent with patient: 25-34 minutes Medications reviewed and adjusted accordingly: Yes Anticipated discharge: Home with Homehealth Within: within 24 hours - Inpatient Certification Medical Necessity: Need Close Monitoring Due to Risk of Patient Decompensation, Need for IV Antibiotics Post Hospital Care: D/C Vice Principal Documentation - Plan Summary Plan Summary: Continues to IV vancomycin's for another 3 weeks Arrange the home health and physical therapy Discussed with the Dr. Patino's and he will arrange the Respiratory setting
[2018-04-01] MEDS: INSULIN LISPRO 100 UNIT/ML 3 ML VIAL SUBCUT PRN (18:17)
[2018-04-01] MEDS: LATANOPROST 0.005% OPH SOLN 2.5 ML OU SCH (21:07)
[2018-04-02] MEDS: IPRATROPIUM/ALBUTEROL 0.5-2.5 MG/3 ML AMPUL NEB SCH ×4 (02:12→19:29)
[2018-04-02] MEDS: LANSOPRAZOLE 15 MG TAB.RAP.DR PO SCH (05:43)
[2018-04-02] MEDS: VANCOMYCIN HCL 1,500 MG in DEXTROSE 5%-WATER 250 ML IV SCH (05:43)
[2018-04-02 06:29] LABS: VANCOMYCIN,TROUGH 34.5 ug/mL (5.0-20.0)
[2018-04-02] MEDS: HUM INSULIN NPH/REG INSULIN HM 100 UNIT/1 ML 3 ML SUBCUT SCH ×3 (07:36→17:18)
[2018-04-02] MEDS: LEVALBUTEROL HCL NEB 0.63 MG/3 ML AMPUL NEB PRN (07:49)
[2018-04-02] MEDS: BUDESONIDE NEB 0.5 MG/2 ML AMPUL NEB SCH ×2 (07:49→19:29)
[2018-04-02] MEDS ORDERED: 1/2 NORMAL SALINE 1,000 ML IV ONE (09:45)
[2018-04-02] MEDS: PREDNISONE 20 MG TABLET PO SCH ×2 (10:42→17:18)
[2018-04-02] MEDS: FENOFIBRATE NANOCRYSTALLIZED 145 MG TABLET PO SCH (10:43)
[2018-04-02] MEDS: CYANOCOBALAMIN (VITAMIN B-12) 1,000 MCG TABLET PO SCH (10:43)
[2018-04-02] MEDS: FERROUS SULFATE 325 MG TABLET PO SCH (10:43)
[2018-04-02] MEDS: GABAPENTIN 400 MG CAPSULE PO SCH ×3 (10:43→17:18)
[2018-04-02] MEDS: CALCIUM CARBONATE 500 MG TABLET PO SCH (10:44)
[2018-04-02] MEDS: NORMAL SALINE 10 ML SDV (SCHEDULED) IV SCH ×2 (10:44→21:14)
[2018-04-02] MEDS: LACTOBACILLUS ACIDOPHILUS 250 MG TAB PO SCH (10:44)
[2018-04-02] MEDS: GUAIFENESIN 600 MG TABLET.SA PO SCH ×2 (10:44→21:11)
[2018-04-02] MEDS: LOSARTAN POTASSIUM 50 MG TABLET PO SCH (10:44)
[2018-04-02] MEDS: DRONEDARONE HYDROCHLORIDE 400 MG TABLET PO SCH ×2 (10:44→17:18)
[2018-04-02] MEDS: DILTIAZEM HCL 240 MG CAPSULE.CR PO SCH ×2 (10:44→21:10)
[2018-04-02] MEDS: APIXABAN 5 MG TABLET PO SCH ×2 (10:45→21:10)
[2018-04-02] MEDS: CHOLECALCIFEROL (D3) 1,000 UNIT TABLET PO SCH (10:45)
[2018-04-02] MEDS: POTASSIUM CHLORIDE 10 MEQ TABLET.SA PO SCH ×2 (10:58→14:28)
--- NOTE | 2018-04-02 15:36 | PDOC PROGRESS REPORT ---
Subjective Progress Note for:: 04/02/18 Subjective:: Patient is currently doing well Patient's denied any chest pain denied any shortness of the breath Patient's vancomycin's trough level is 34 Reason For Visit: PNEUMONIA,MULTIPLE CO-MORBID CONDITIONS Physical Exam Vital Signs: Temp Pulse Resp BP Pulse Ox 98.8 F 79 16 158/66 H 98 04/02/18 11:45 04/02/18 13:31 04/02/18 13:31 04/02/18 11:45 04/02/18 13:31 Intake & Output 04/01/18 04/02/18 04/03/18 06:59 06:59 06:59 Intake Total 1324 319 Output Total 200 Balance 1124 319 Weight 55.7 kg General appearance: PRESENT: no acute distress, well-developed, well-nourished Head exam: PRESENT: atraumatic, normocephalic Eye exam: PRESENT: conjunctiva pink, EOMI, PERRLA. ABSENT: scleral icterus Ear exam: PRESENT: normal external ear exam Mouth exam: PRESENT: moist, tongue midline Neck exam: PRESENT: full ROM. ABSENT: carotid bruit, JVD, lymphadenopathy, thyromegaly Respiratory exam: PRESENT: clear to auscultation koko Cardiovascular exam: PRESENT: RRR. ABSENT: diastolic murmur, rubs, systolic murmur Pulses: PRESENT: normal dorsalis pedis pul, +2 pedal pulses bilateral Vascular exam: PRESENT: normal capillary refill GI/Abdominal exam: PRESENT: normal bowel sounds, soft. ABSENT: distended, guarding, mass, organolmegaly, rebound, tenderness Rectal exam: PRESENT: deferred Extremities exam: ABSENT: pedal edema Neurological exam: PRESENT: alert, awake, oriented to person, oriented to place , oriented to time, oriented to situation, CN II-XII grossly intact. ABSENT: motor sensory deficit Psychiatric exam: PRESENT: appropriate affect, normal mood. ABSENT: homicidal ideation, suicidal ideation Skin exam: PRESENT: dry, intact, warm. ABSENT: cyanosis, rash Results Laboratory Results: 03/31/18 04:50 04/02/18 05:54 04/02/18 05:54 Creatinine 0.65 Est GFR ( Amer) > 60 Est GFR (Non-Af Amer) > 60 03/23/18 00:46 Creatine Kinase 30 Impressions: Head CT 03/22/18 21:22 IMPRESSION: No acute intracranial hemorrhage or acute territorial infarct. Mild chronic changes of atrophy and microvascular ischemia. EVIDENCE OF ACUTE STROKE: NO. Chest X-Ray 03/31/18 00:00 IMPRESSION: SUCCESSFUL PLACEMENT OF A 5 FR DUAL LUMEN 30 CM PICC IN THE right basilic VEIN. Interventional Vascular Procedure 03/31/18 00:00 IMPRESSION: SUCCESSFUL PLACEMENT OF A 5 FR DUAL LUMEN 30 CM PICC IN THE right basilic VEIN. PICC Line Insertion 03/31/18 00:00 IMPRESSION: SUCCESSFUL PLACEMENT OF A 5 FR DUAL LUMEN 30 CM PICC IN THE right basilic VEIN. Assessment & Plan - Diagnosis (1) Acute hypoxemic respiratory failure Is this a current diagnosis for this admission?: Yes (2) [place] disease Is this a current diagnosis for this admission?: Yes (3) Anemia Qualifiers: Anemia type: unspecified type Qualified Code(s): D64.9 - Anemia, unspecified Is this a current diagnosis for this admission?: Yes (4) Chronic atrial fibrillation Is this a current diagnosis for this admission?: Yes (5) Hypoalbuminemia Is this a current diagnosis for this admission?: Yes (6) MRSA (methicillin resistant Staphylococcus aureus) septicemia Is this a current diagnosis for this admission?: Yes (7) Pneumonia Qualifiers: Pneumonia type: due to unspecified organism Laterality: bilateral Lung location: lower lobe of lung Qualified Code(s): J18.1 - Lobar pneumonia, unspecified organism Is this a current diagnosis for this admission?: Yes (8) COPD (chronic obstructive pulmonary disease) Qualifiers: COPD type: unspecified COPD Qualified Code(s): J44.9 - Chronic obstructive pulmonary disease, unspecified Is this a current diagnosis for this admission?: Yes (9) Chronic kidney disease Qualifiers: Chronic kidney disease stage: stage 2 (mild) Qualified Code(s): N18.2 - Chronic kidney disease, stage 2 (mild) Is this a current diagnosis for this admission?: Yes (10) Congestive heart failure Qualifiers: Heart failure type: diastolic Heart failure chronicity: acute on chronic Qualified Code(s): I50.33 - Acute on chronic diastolic (congestive) heart failure Is this a current diagnosis for this admission?: Yes (11) Coronary artery disease Qualifiers: Coronary Disease-Associated Artery/Lesion type: unspecified vessel or lesion type Is this a current diagnosis for this admission?: Yes (12) Endocarditis Qualifiers: Endocarditis type: unspecified Chronicity: acute Qualified Code(s): I33.9 - Acute and subacute endocarditis, unspecified Is this a current diagnosis for this admission?: Yes - Time Time Spent with patient: 15-24 minutes Medications reviewed and adjusted accordingly: Yes Anticipated discharge: Home, Home with Homehealth - Inpatient Certification Medical Necessity: Need Close Monitoring Due to Risk of Patient Decompensation, Need for IV Antibiotics Post Hospital Care: D/C Nail Feeder Documentation - Plan Summary Plan Summary: Discussed with the pharmacy about the vancomycin's trough level in patients to receive the vancomycin currently hold the vancomycin's and pharmacy me we will repeat the vancomycin's trough level again they thought may be a false positive discussed with the patient's nephrology Dr. Powers and suggest the may be hold the vancomycin and may be a start with the low-dose with the 500 mg Currently hold the discharge
[2018-04-02] MEDS: LATANOPROST 0.005% OPH SOLN 2.5 ML OU SCH (21:11)
[2018-04-02] MEDS: INSULIN LISPRO 100 UNIT/ML 3 ML VIAL SUBCUT PRN (22:00)
[2018-04-03] MEDS: IPRATROPIUM/ALBUTEROL 0.5-2.5 MG/3 ML AMPUL NEB SCH ×4 (01:48→20:30)
[2018-04-03] MEDS: LANSOPRAZOLE 15 MG TAB.RAP.DR PO SCH (06:18)
[2018-04-03 06:25] LABS: HEMATOCRIT 27.7 % (36.0-47.0); HEMOGLOBIN 9.3 g/dL (12.0-15.5); MEAN CORPUSCULAR HEMOGLOBIN 28.3 pg (27.0-33.4); MEAN CORPUSCULAR HGB CONC 33.6 g/dL (32.0-36.0); MEAN CORPUSCULAR VOLUME 84 fl (80-97); PLATELET COUNT 232 10^3/uL (150-450); RED BLOOD COUNT 3.29 10^6/uL (3.72-5.28); RED CELL DISTRIBUTION WIDTH 17.5 % (11.5-14.0); WHITE BLOOD COUNT 9.6 10^3/uL (4.0-10.5)
[2018-04-03 06:37] LABS: ANION GAP 6 (5-19); BLOOD UREA NITROGEN 31 mg/dL (7-20); CALCIUM 9.1 mg/dL (8.4-10.2); CARBON DIOXIDE 28 mmol/L (22-30); CHLORIDE 108 mmol/L (98-107); GLUCOSE 139 mg/dL (75-110); POTASSIUM 4.9 mmol/L (3.6-5.0); SODIUM 141.5 mmol/L (137-145)
[2018-04-03 07:04] LABS: ABSOLUTE LYMPHOCYTES# (MANUAL) 1.2 10^3/uL (0.5-4.7); ABSOLUTE MONOCYTES # (MANUAL) 0.3 10^3/uL (0.1-1.4); ABSOLUTE NEUTROPHILS# (MANUAL) 8.1 10^3/uL (1.7-8.2); BAND NEUTROPHILS % (MANUAL) 4 % (3-5); BASOPHILS % (MANUAL) 0 % (0-2); EOSINOPHILS % (MANUAL) 0 % (0-6); LYMPHOCYTES % (MANUAL) 13 % (13-45); MONOCYTES % (MANUAL) 3 % (3-13); POIKILOCYTOSIS SLIGHT; SEGMENTED NEUTROPHILS % (MAN) 80 % (42-78); TOTAL CELLS COUNTED 100
[2018-04-03 07:05] LABS: HYPOCHROMASIA 1+; PLATELET COMMENT ADEQUATE
[2018-04-03] MEDS: BUDESONIDE NEB 0.5 MG/2 ML AMPUL NEB SCH ×2 (08:33→20:30)
[2018-04-03] MEDS: GABAPENTIN 400 MG CAPSULE PO SCH ×3 (09:04→17:56)
[2018-04-03] MEDS: HUM INSULIN NPH/REG INSULIN HM 100 UNIT/1 ML 3 ML SUBCUT SCH ×3 (09:04→17:56)
[2018-04-03] MEDS: CYANOCOBALAMIN (VITAMIN B-12) 1,000 MCG TABLET PO SCH (09:05)
[2018-04-03] MEDS: PREDNISONE 20 MG TABLET PO SCH ×2 (09:05→17:56)
[2018-04-03] MEDS: DILTIAZEM HCL 240 MG CAPSULE.CR PO SCH ×2 (09:05→22:00)
[2018-04-03] MEDS: LACTOBACILLUS ACIDOPHILUS 250 MG TAB PO SCH (09:08)
[2018-04-03] MEDS: GUAIFENESIN 600 MG TABLET.SA PO SCH ×2 (09:08→22:00)
[2018-04-03] MEDS: APIXABAN 5 MG TABLET PO SCH ×2 (09:08→22:02)
[2018-04-03] MEDS: FENOFIBRATE NANOCRYSTALLIZED 145 MG TABLET PO SCH (09:08)
[2018-04-03] MEDS: FERROUS SULFATE 325 MG TABLET PO SCH (09:09)
[2018-04-03] MEDS: CALCIUM CARBONATE 500 MG TABLET PO SCH (09:09)
[2018-04-03] MEDS: LOSARTAN POTASSIUM 50 MG TABLET PO SCH (09:09)
[2018-04-03] MEDS: CHOLECALCIFEROL (D3) 1,000 UNIT TABLET PO SCH (09:11)
[2018-04-03] MEDS: DRONEDARONE HYDROCHLORIDE 400 MG TABLET PO SCH ×2 (09:11→17:56)
[2018-04-03] MEDS: NORMAL SALINE 10 ML SDV (SCHEDULED) IV SCH ×2 (09:14→22:06)
[2018-04-03 10:03] LABS: VANCOMYCIN,TROUGH 15.4 ug/mL (5.0-20.0)
--- NOTE | 2018-04-03 11:20 | Pulmonary Function Test ---
Pulmonary Function Test Date of Procedure:: 04/03/18 INDICATION:: Dyspnea Referring Provider: Dr. Keyona Khan - Report Spirometry: FVC 1.05 L 48% FEV1 0.79 L 46% FEV1/FVC % 75 predicted 79 Impression: Severe obstructive ventilatory defect
--- NOTE | 2018-04-03 12:51 | PDOC PROGRESS REPORT ---
Subjective Progress Note for:: 04/03/18 Subjective:: Patient is currently doing well Patient's denied any chest pain denied any shortness of the breath Since vancomycin stable is 15.4 Patient's BUN/creatinine is all stable Reason For Visit: PNEUMONIA,MULTIPLE CO-MORBID CONDITIONS Physical Exam Vital Signs: Temp Pulse Resp BP Pulse Ox 98.4 F 74 16 134/50 H 96 04/03/18 11:10 04/03/18 11:10 04/03/18 11:10 04/03/18 11:10 04/03/18 11:28 Intake & Output 04/02/18 04/03/18 04/04/18 06:59 06:59 06:59 Intake Total 319 1900 Balance 319 1900 Weight 55.7 kg 56.7 kg General appearance: PRESENT: no acute distress, well-developed, well-nourished Head exam: PRESENT: atraumatic, normocephalic Eye exam: PRESENT: conjunctiva pink, EOMI, PERRLA. ABSENT: scleral icterus Ear exam: PRESENT: normal external ear exam Mouth exam: PRESENT: moist, tongue midline Neck exam: PRESENT: full ROM. ABSENT: carotid bruit, JVD, lymphadenopathy, thyromegaly Respiratory exam: PRESENT: clear to auscultation koko Cardiovascular exam: PRESENT: RRR. ABSENT: diastolic murmur, rubs, systolic murmur Pulses: PRESENT: normal dorsalis pedis pul, +2 pedal pulses bilateral Vascular exam: PRESENT: normal capillary refill GI/Abdominal exam: PRESENT: normal bowel sounds, soft. ABSENT: distended, guarding, mass, organolmegaly, rebound, tenderness Rectal exam: PRESENT: deferred Extremities exam: ABSENT: pedal edema Neurological exam: PRESENT: alert, awake, oriented to person, oriented to place , oriented to time, oriented to situation, CN II-XII grossly intact. ABSENT: motor sensory deficit Psychiatric exam: PRESENT: appropriate affect, normal mood. ABSENT: homicidal ideation, suicidal ideation Skin exam: PRESENT: dry, intact, warm. ABSENT: cyanosis, rash Results Laboratory Results: 04/03/18 06:10 04/03/18 06:10 04/03/18 04/03/18 06:10 06:10 WBC 9.6 RBC 3.29 L Hgb 9.3 L Hct 27.7 L MCV 84 MCH 28.3 MCHC 33.6 RDW 17.5 H Plt Count 232 Seg Neutrophils % Not Reportable Lymphocytes % Not Reportable Monocytes % Not Reportable Eosinophils % Not Reportable Basophils % Not Reportable Absolute Neutrophils Not Reportable Absolute Lymphocytes Not Reportable Absolute Monocytes Not Reportable Absolute Eosinophils Not Reportable Absolute Basophils Not Reportable Sodium 141.5 Potassium 4.9 Chloride 108 H Carbon Dioxide 28 Anion Gap 6 BUN 31 H Creatinine 0.72 Est GFR ( Amer) > 60 Est GFR (Non-Af Amer) > 60 Glucose 139 H Calcium 9.1 03/23/18 00:46 Creatine Kinase 30 Impressions: Head CT 03/22/18 21:22 IMPRESSION: No acute intracranial hemorrhage or acute territorial infarct. Mild chronic changes of atrophy and microvascular ischemia. EVIDENCE OF ACUTE STROKE: NO. Chest X-Ray 03/31/18 00:00 IMPRESSION: SUCCESSFUL PLACEMENT OF A 5 FR DUAL LUMEN 30 CM PICC IN THE right basilic VEIN. Interventional Vascular Procedure 03/31/18 00:00 IMPRESSION: SUCCESSFUL PLACEMENT OF A 5 FR DUAL LUMEN 30 CM PICC IN THE right basilic VEIN. PICC Line Insertion 03/31/18 00:00 IMPRESSION: SUCCESSFUL PLACEMENT OF A 5 FR DUAL LUMEN 30 CM PICC IN THE right basilic VEIN. Assessment & Plan - Diagnosis (1) Acute hypoxemic respiratory failure Is this a current diagnosis for this admission?: Yes (2) [place] disease Is this a current diagnosis for this admission?: Yes (3) Anemia Qualifiers: Anemia type: unspecified type Qualified Code(s): D64.9 - Anemia, unspecified Is this a current diagnosis for this admission?: Yes (4) Chronic atrial fibrillation Is this a current diagnosis for this admission?: Yes (5) Hypoalbuminemia Is this a current diagnosis for this admission?: Yes (6) MRSA (methicillin resistant Staphylococcus aureus) septicemia Is this a current diagnosis for this admission?: Yes (7) Pneumonia Qualifiers: Pneumonia type: due to unspecified organism Laterality: bilateral Lung location: lower lobe of lung Qualified Code(s): J18.1 - Lobar pneumonia, unspecified organism Is this a current diagnosis for this admission?: Yes (8) COPD (chronic obstructive pulmonary disease) Qualifiers: COPD type: unspecified COPD Qualified Code(s): J44.9 - Chronic obstructive pulmonary disease, unspecified Is this a current diagnosis for this admission?: Yes (9) Chronic kidney disease Qualifiers: Chronic kidney disease stage: stage 2 (mild) Qualified Code(s): N18.2 - Chronic kidney disease, stage 2 (mild) Is this a current diagnosis for this admission?: Yes (10) Congestive heart failure Qualifiers: Heart failure type: diastolic Heart failure chronicity: acute on chronic Qualified Code(s): I50.33 - Acute on chronic diastolic (congestive) heart failure Is this a current diagnosis for this admission?: Yes (11) Coronary artery disease Qualifiers: Coronary Disease-Associated Artery/Lesion type: unspecified vessel or lesion type Is this a current diagnosis for this admission?: Yes (12) Endocarditis Qualifiers: Endocarditis type: unspecified Chronicity: acute Qualified Code(s): I33.9 - Acute and subacute endocarditis, unspecified Is this a current diagnosis for this admission?: Yes - Time Time Spent with patient: 15-24 minutes Medications reviewed and adjusted accordingly: Yes Anticipated discharge: Home with Homehealth Within: within 24 hours - Inpatient Certification Medical Necessity: Need Close Monitoring Due to Risk of Patient Decompensation, Need for IV Antibiotics Post Hospital Care: D/C Submersible Pilot Documentation - Plan Summary Plan Summary: Will restart the IV vancomycin keep vancomycin's level around 15-20 range and hopefully discharge tomorrow morning and continues IV vancomycin's for 2 weeks
[2018-04-03] MEDS: VANCOMYCIN HCL 1,250 MG in DEXTROSE 5%-WATER 250 ML IV SCH (14:03)
[2018-04-03] MEDS: POTASSIUM CHLORIDE 10 MEQ TABLET.SA PO SCH (14:04)
[2018-04-03] MEDS: LATANOPROST 0.005% OPH SOLN 2.5 ML OU SCH (22:01)
[2018-04-04] MEDS: IPRATROPIUM/ALBUTEROL 0.5-2.5 MG/3 ML AMPUL NEB SCH ×4 (01:50→19:40)
[2018-04-04] MEDS: ACETAMINOPHEN 325 MG TABLET PO PRN (03:24)
[2018-04-04] MEDS: LANSOPRAZOLE 15 MG TAB.RAP.DR PO SCH (06:53)
[2018-04-04 07:46] LABS: ANION GAP 8 (5-19); BLOOD UREA NITROGEN 36 mg/dL (7-20); CALCIUM 9.3 mg/dL (8.4-10.2); CARBON DIOXIDE 26 mmol/L (22-30); CHLORIDE 107 mmol/L (98-107); GLUCOSE 188 mg/dL (75-110); POTASSIUM 5.2 mmol/L (3.6-5.0); SODIUM 141.2 mmol/L (137-145)
[2018-04-04] MEDS: HUM INSULIN NPH/REG INSULIN HM 100 UNIT/1 ML 3 ML SUBCUT SCH ×3 (08:11→17:08)
[2018-04-04] MEDS: INSULIN LISPRO 100 UNIT/ML 3 ML VIAL SUBCUT PRN ×3 (08:12→21:39)
[2018-04-04] MEDS: VANCOMYCIN HCL 1,250 MG in DEXTROSE 5%-WATER 250 ML IV SCH (08:36)
[2018-04-04] MEDS: CYANOCOBALAMIN (VITAMIN B-12) 1,000 MCG TABLET PO SCH (08:39)
[2018-04-04] MEDS: FENOFIBRATE NANOCRYSTALLIZED 145 MG TABLET PO SCH (08:40)
[2018-04-04] MEDS: CHOLECALCIFEROL (D3) 1,000 UNIT TABLET PO SCH (08:40)
[2018-04-04] MEDS: GUAIFENESIN 600 MG TABLET.SA PO SCH ×2 (08:40→21:39)
[2018-04-04] MEDS: LOSARTAN POTASSIUM 50 MG TABLET PO SCH (08:40)
[2018-04-04] MEDS: APIXABAN 5 MG TABLET PO SCH ×2 (08:41→21:39)
[2018-04-04] MEDS: DILTIAZEM HCL 240 MG CAPSULE.CR PO SCH (08:41)
[2018-04-04] MEDS: FERROUS SULFATE 325 MG TABLET PO SCH (08:41)
[2018-04-04] MEDS: GABAPENTIN 400 MG CAPSULE PO SCH ×3 (08:42→17:06)
[2018-04-04] MEDS: DRONEDARONE HYDROCHLORIDE 400 MG TABLET PO SCH ×2 (08:42→17:10)
[2018-04-04] MEDS: LACTOBACILLUS ACIDOPHILUS 250 MG TAB PO SCH (08:42)
[2018-04-04] MEDS: PREDNISONE 20 MG TABLET PO SCH ×2 (08:42→17:06)
[2018-04-04] MEDS: CALCIUM CARBONATE 500 MG TABLET PO SCH (08:43)
[2018-04-04] MEDS: NORMAL SALINE 10 ML SDV (SCHEDULED) IV SCH ×2 (08:48→21:39)
[2018-04-04] MEDS: BUDESONIDE NEB 0.5 MG/2 ML AMPUL NEB SCH ×2 (08:57→19:40)
[2018-04-04] MEDS ORDERED: ADENOSINE INJ/PF 6 MG/2 ML SDV IV ONE ×3 (10:08→11:00)
[2018-04-04 10:40] LABS: TROPONIN I < 0.012 ng/mL
[2018-04-04] MEDS ORDERED: DIGOXIN 0.25 MG TABLET PO SCH (11:00)
[2018-04-04] MEDS: DILTIAZEM HCL/D5W 125 MG/125 ML RTUINJ IV PRN (11:05)
--- NOTE | 2018-04-04 12:30 | RADIOLOGY REPORT (SQ) ---
EXAM DESCRIPTION: CHEST SINGLE VIEW COMPLETED DATE/TIME: 04/04/2018 11:32 am REASON FOR STUDY: sob COMPARISON: 03/31/2018 EXAM PARAMETERS: NUMBER OF VIEWS: One view. TECHNIQUE: Single frontal radiographic view of the chest acquired. RADIATION DOSE: NA LIMITATIONS: None. FINDINGS: LUNGS AND PLEURA: There is ill-defined opacification in the right upper lobe and lower lob e. Small pleural effusions are suggested. There is ill-defined opacification in the left base. MEDIASTINUM AND HILAR STRUCTURES: No masses. Contour normal. HEART AND VASCULAR STRUCTURES: Cardiac silhouette is enlarged. BONES: No acute findings. HARDWARE: PICC line remains in place on the right. OTHER: No other significant finding. IMPRESSION: Persistent airspace disease in the right lung. Small pleural effusions. Likely subsegm ental atelectasis in the left base. Cardiomegaly without codi pulmonary edema. TECHNICAL DOCUMENTATION: JOB ID: [id number] [employer]- All Rights Reserved Reading location - IP/workstation name: [email or web address]
--- NOTE | 2018-04-04 14:11 | PDOC PROGRESS REPORT ---
Subjective Progress Note for:: 04/04/18 Subjective:: Patient's currently doing fair when I saw the patient in the morning and supposed to discharge but then the nurses call and the patient's heart rate goes up and patient seen by Dr. Meredith and given adenosine 1 dose and basically back to the normal and decided to hold the discharge Patient's otherwise currently denied any chest pain denied any shortness of the breath She is currently on a vancomycin's treatments for the MRSA pneumonia and the questionable endocarditis MRSA in the past patient also have a significant other comorbidity discussed with the daughter and the bedside today Reason For Visit: PNEUMONIA,MULTIPLE CO-MORBID CONDITIONS Physical Exam Vital Signs: Temp Pulse Resp BP Pulse Ox 98.9 F 78 20 149/58 H 100 04/04/18 11:55 04/04/18 13:00 04/04/18 11:55 04/04/18 13:00 04/04/18 11:55 Intake & Output 04/03/18 04/04/18 04/05/18 06:59 06:59 06:59 Intake Total 1900 1250 Balance 1900 1250 Weight 56.7 kg 56.1 kg General appearance: PRESENT: no acute distress, well-developed, well-nourished Head exam: PRESENT: atraumatic, normocephalic Eye exam: PRESENT: conjunctiva pink, EOMI, PERRLA. ABSENT: scleral icterus Ear exam: PRESENT: normal external ear exam Mouth exam: PRESENT: moist, tongue midline Neck exam: PRESENT: full ROM. ABSENT: carotid bruit, JVD, lymphadenopathy, thyromegaly Respiratory exam: PRESENT: clear to auscultation koko Cardiovascular exam: PRESENT: RRR. ABSENT: diastolic murmur, rubs, systolic murmur Pulses: PRESENT: normal dorsalis pedis pul, +2 pedal pulses bilateral Vascular exam: PRESENT: normal capillary refill GI/Abdominal exam: PRESENT: normal bowel sounds, soft. ABSENT: distended, guarding, mass, organolmegaly, rebound, tenderness Rectal exam: PRESENT: deferred Extremities exam: ABSENT: pedal edema Neurological exam: PRESENT: alert, awake, oriented to person, oriented to place , oriented to time, oriented to situation, CN II-XII grossly intact. ABSENT: motor sensory deficit Psychiatric exam: PRESENT: appropriate affect, normal mood. ABSENT: homicidal ideation, suicidal ideation Skin exam: PRESENT: dry, intact, warm. ABSENT: cyanosis, rash Results Laboratory Results: 04/03/18 06:10 04/04/18 07:00 04/04/18 04/04/18 07:00 09:57 Sodium 141.2 Potassium 5.2 H Chloride 107 Carbon Dioxide 26 Anion Gap 8 BUN 36 H Creatinine 0.86 Est GFR ( Amer) > 60 Est GFR (Non-Af Amer) > 60 Glucose 188 H Calcium 9.3 Magnesium 2.0 03/23/18 04/04/18 04/04/18 00:46 09:57 09:57 Creatine Kinase 30 34 CK-MB (CK-2) 1.20 Troponin I < 0.012 Impressions: Head CT 03/22/18 21:22 IMPRESSION: No acute intracranial hemorrhage or acute territorial infarct. Mild chronic changes of atrophy and microvascular ischemia. EVIDENCE OF ACUTE STROKE: NO. Interventional Vascular Procedure 03/31/18 00:00 IMPRESSION: SUCCESSFUL PLACEMENT OF A 5 FR DUAL LUMEN 30 CM PICC IN THE right basilic VEIN. PICC Line Insertion 03/31/18 00:00 IMPRESSION: SUCCESSFUL PLACEMENT OF A 5 FR DUAL LUMEN 30 CM PICC IN THE right basilic VEIN. Chest X-Ray 04/04/18 00:00 IMPRESSION: Persistent airspace disease in the right lung. Small pleural effusions. Likely subsegmental atelectasis in the left base. Cardiomegaly without codi pulmonary edema. Assessment & Plan - Diagnosis (1) Acute hypoxemic respiratory failure Is this a current diagnosis for this admission?: Yes Plan: Currently all stable follow with Dr. Patino (2) [place] disease Is this a current diagnosis for this admission?: Yes Plan: Currently on a prednisone 20 mg twice a day and we are going to taper to once a day patient seen by the squeak rattle and leak repairer and suggested continues to 20 mg daily (3) Anemia Qualifiers: Anemia type: unspecified type Qualified Code(s): D64.9 - Anemia, unspecified Is this a current diagnosis for this admission?: Yes Plan: Currently all stable (4) Chronic atrial fibrillation Is this a current diagnosis for this admission?: Yes Plan: Patient's currently on Cardizem and the patient's already on Eliquis and currently follow with the Dr. Meredith (5) Hypoalbuminemia Is this a current diagnosis for this admission?: Yes (6) MRSA (methicillin resistant Staphylococcus aureus) septicemia Is this a current diagnosis for this admission?: Yes Plan: Currently IV vancomycin's as per discussed with the Dr. Powers the patient's nephrology and suggest to repeat the vancomycin's trough in the Saturday (7) Pneumonia Qualifiers: Pneumonia type: due to unspecified organism Laterality: bilateral Lung location: lower lobe of lung Qualified Code(s): J18.1 - Lobar pneumonia, unspecified organism Is this a current diagnosis for this admission?: Yes Plan: Continues to current antibiotic (8) COPD (chronic obstructive pulmonary disease) Qualifiers: COPD type: unspecified COPD Qualified Code(s): J44.9 - Chronic obstructive pulmonary disease, unspecified Is this a current diagnosis for this admission?: Yes Plan: Continues to nebulizer treatment especially Xopenex (9) Chronic kidney disease Qualifiers: Chronic kidney disease stage: stage 2 (mild) Qualified Code(s): N18.2 - Chronic kidney disease, stage 2 (mild) Is this a current diagnosis for this admission?: Yes Plan: Currently all stable (10) Congestive heart failure Qualifiers: Heart failure type: diastolic Heart failure chronicity: acute on chronic Qualified Code(s): I50.33 - Acute on chronic diastolic (congestive) heart failure Is this a current diagnosis for this admission?: Yes Plan: Continues to Lasix (11) Coronary artery disease Qualifiers: Coronary Disease-Associated Artery/Lesion type: unspecified vessel or lesion type Is this a current diagnosis for this admission?: Yes (12) Endocarditis Qualifiers: Endocarditis type: unspecified Chronicity: acute Qualified Code(s): I33.9 - Acute and subacute endocarditis, unspecified Is this a current diagnosis for this admission?: Yes Plan: Continues to IV vancomycin need to repeat the echocardiogram - Time Time Spent with patient: 15-24 minutes Medications reviewed and adjusted accordingly: Yes Anticipated discharge: Home Within: Other - Inpatient Certification Medical Necessity: Need Close Monitoring Due to Risk of Patient Decompensation, Need for IV Antibiotics Post Hospital Care: D/C Interventionist Documentation - Plan Summary Plan Summary: See other MD orders as able
--- NOTE | 2018-04-04 15:39 | EKG REPORT ---
SEVERITY:- ABNORMAL ECG - SINUS RHYTHM RIGHT VENTRICULAR HYPERTROPHY : Confirmed by: Juan Todd 04-Apr-2018 15:38:26
--- NOTE | 2018-04-04 15:42 | EKG REPORT ---
SEVERITY:- ABNORMAL ECG - JUNCTIONAL TACHYCARDIA CANNOT R/O SINUS TACH WITH LONG AR, REPEAT EKG AFTER ADEENSINE BOLUS RBBB AND LPFB : Confirmed by: Juan Todd 04-Apr-2018 15:41:40
[2018-04-04] MEDS ORDERED: VANCOMYCIN HCL 1,000 MG in DEXTROSE 5%-WATER 250 ML IV SCH (18:00)
[2018-04-04] MEDS: LATANOPROST 0.005% OPH SOLN 2.5 ML OU SCH (21:39)
[2018-04-05] MEDS: IPRATROPIUM/ALBUTEROL 0.5-2.5 MG/3 ML AMPUL NEB SCH ×4 (02:29→20:11)
[2018-04-05] MEDS: LANSOPRAZOLE 15 MG TAB.RAP.DR PO SCH (05:19)
[2018-04-05 05:50] LABS: ANION GAP 6 (5-19); BLOOD UREA NITROGEN 35 mg/dL (7-20); CALCIUM 9.2 mg/dL (8.4-10.2); CARBON DIOXIDE 27 mmol/L (22-30); CHLORIDE 109 mmol/L (98-107); GLUCOSE 161 mg/dL (75-110); POTASSIUM 4.8 mmol/L (3.6-5.0); SODIUM 141.8 mmol/L (137-145)
[2018-04-05] MEDS: INSULIN LISPRO 100 UNIT/ML 3 ML VIAL SUBCUT PRN ×3 (07:26→21:10)
[2018-04-05] MEDS: HUM INSULIN NPH/REG INSULIN HM 100 UNIT/1 ML 3 ML SUBCUT SCH ×3 (07:26→17:06)
[2018-04-05] MEDS: BUDESONIDE NEB 0.5 MG/2 ML AMPUL NEB SCH ×2 (08:38→20:11)
[2018-04-05] MEDS: CYANOCOBALAMIN (VITAMIN B-12) 1,000 MCG TABLET PO SCH (09:06)
[2018-04-05] MEDS: LOSARTAN POTASSIUM 50 MG TABLET PO SCH (09:06)
[2018-04-05] MEDS: GABAPENTIN 400 MG CAPSULE PO SCH ×3 (09:06→17:06)
[2018-04-05] MEDS: FENOFIBRATE NANOCRYSTALLIZED 145 MG TABLET PO SCH (09:06)
[2018-04-05] MEDS: GUAIFENESIN 600 MG TABLET.SA PO SCH ×2 (09:07→21:10)
[2018-04-05] MEDS: DRONEDARONE HYDROCHLORIDE 400 MG TABLET PO SCH ×2 (09:07→17:06)
[2018-04-05] MEDS: CHOLECALCIFEROL (D3) 1,000 UNIT TABLET PO SCH (09:07)
[2018-04-05] MEDS: LACTOBACILLUS ACIDOPHILUS 250 MG TAB PO SCH (09:07)
[2018-04-05] MEDS: APIXABAN 5 MG TABLET PO SCH ×2 (09:07→21:10)
[2018-04-05] MEDS: PREDNISONE 20 MG TABLET PO SCH ×2 (09:08→17:06)
[2018-04-05] MEDS: FERROUS SULFATE 325 MG TABLET PO SCH (09:08)
[2018-04-05] MEDS: CALCIUM CARBONATE 500 MG TABLET PO SCH (09:08)
[2018-04-05] MEDS: NORMAL SALINE 10 ML SDV (SCHEDULED) IV SCH ×2 (09:08→21:10)
[2018-04-05] MEDS: DILTIAZEM HCL/D5W 125 MG/125 ML RTUINJ IV PRN (09:11)
[2018-04-05] MEDS: VERAPAMIL HCL 180 MG TABLET.SA PO SCH ×2 (10:11→21:10)
--- NOTE | 2018-04-05 13:28 | PDOC PROGRESS REPORT ---
Subjective Progress Note for:: 04/05/18 Subjective:: Patient is out of bed in chair. She denied chest pain and her breathing is at baseline. No palpitation. No nausea or vomiting. No abdominal pain. Currently off Cardizem drip. She is currently on Verapamil orally. Reason For Visit: PNEUMONIA,MULTIPLE CO-MORBID CONDITIONS Physical Exam Vital Signs: Temp Pulse Resp BP Pulse Ox 98.5 F 78 17 147/51 H 100 04/05/18 11:52 04/05/18 11:52 04/05/18 11:52 04/05/18 11:52 04/05/18 11:52 Intake & Output 04/04/18 04/05/18 04/06/18 06:59 06:59 06:59 Intake Total 1250 854 474 Balance 1250 854 474 Weight 56.1 kg 55 kg General appearance: PRESENT: no acute distress Head exam: PRESENT: atraumatic, normocephalic Mouth exam: PRESENT: moist Respiratory exam: PRESENT: decreased breath sounds - at lung bases, prolonged expiratory phas, rhonchi - minimally at expiratory phase Cardiovascular exam: PRESENT: RRR. ABSENT: diastolic murmur, rubs, systolic murmur Vascular exam: ABSENT: pallor GI/Abdominal exam: PRESENT: normal bowel sounds, soft. ABSENT: distended, guarding, mass, organolmegaly, rebound, tenderness Extremities exam: ABSENT: pedal edema Musculoskeletal exam: PRESENT: deformity - related to multiple jpoints involvement with athritis Neurological exam: PRESENT: alert, awake, oriented to person, oriented to place , oriented to time, oriented to situation, CN II-XII grossly intact. ABSENT: motor sensory deficit Psychiatric exam: PRESENT: appropriate affect, normal mood. ABSENT: homicidal ideation, suicidal ideation Skin exam: PRESENT: dry, warm Results Laboratory Results: 04/03/18 06:10 04/05/18 05:15 04/04/18 04/05/18 09:57 05:15 Sodium 141.8 Potassium 4.8 Chloride 109 H Carbon Dioxide 27 Anion Gap 6 BUN 35 H Creatinine 0.78 Est GFR ( Amer) > 60 Est GFR (Non-Af Amer) > 60 Glucose 161 H Calcium 9.2 TSH 0.27 L 03/23/18 04/04/18 04/04/18 00:46 09:57 09:57 Creatine Kinase 30 34 CK-MB (CK-2) 1.20 Troponin I < 0.012 Impressions: Head CT 03/22/18 21:22 IMPRESSION: No acute intracranial hemorrhage or acute territorial infarct. Mild chronic changes of atrophy and microvascular ischemia. EVIDENCE OF ACUTE STROKE: NO. Interventional Vascular Procedure 03/31/18 00:00 IMPRESSION: SUCCESSFUL PLACEMENT OF A 5 FR DUAL LUMEN 30 CM PICC IN THE right basilic VEIN. PICC Line Insertion 03/31/18 00:00 IMPRESSION: SUCCESSFUL PLACEMENT OF A 5 FR DUAL LUMEN 30 CM PICC IN THE right basilic VEIN. Chest X-Ray 04/04/18 00:00 IMPRESSION: Persistent airspace disease in the right lung. Small pleural effusions. Likely subsegmental atelectasis in the left base. Cardiomegaly without codi pulmonary edema. Assessment & Plan - Diagnosis (1) Right lower lobe pneumonia Qualifiers: Pneumonia type: due to methicillin-resistant Staphylococcus aureus (MRSA) Qualified Code(s): J15.212 - Pneumonia due to Methicillin resistant Staphylococcus aureus Is this a current diagnosis for this admission?: Yes Plan: See covering attending physician orders. (2) Chronic obstructive pulmonary disease Qualifiers: COPD type: unspecified COPD Qualified Code(s): J44.9 - Chronic obstructive pulmonary disease, unspecified Is this a current diagnosis for this admission?: Yes Plan: See covering attending physician orders. (3) Chronic atrial fibrillation Is this a current diagnosis for this admission?: Yes Plan: See covering attending physician orders. - Time Time Spent with patient: 25-34 minutes Anticipated discharge: Home with Homehealth Within: Other - Inpatient Certification Based on my medical assessment, after consideration of the patient's comorbidities, presenting symptoms, or acuity I expect that the services needed warrant INPATIENT care.: Yes I certify that my determination is in accordance with my understanding of Medicare's requirements for reasonable and necessary INPATIENT services [42 CFR 412.3e].: Yes Medical Necessity: Need Close Monitoring Due to Risk of Patient Decompensation, Need For Continuous Telemetry Monitoring, Need for Nebulizer Therapy and Monitoring of Response, Need for IV Antibiotics, Risk of Complication if Not Cared For in Hospital 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
[2018-04-05] MEDS: VANCOMYCIN HCL 1,250 MG in DEXTROSE 5%-WATER 250 ML IV SCH (13:48)
--- NOTE | 2018-04-05 18:55 | PROGRESS NOTE E ---
Progress Note NAME: JESSY PARKER : 1940 AGE: 77Y DATE: 04/05/2018 ROOM: 303 SUBJECTIVE: The patient is sitting up in the chair. Denies any chest pain or discomfort. There is no cough or sputum production. There is no chest pain or chest discomfort. There is no PND, orthopnea or leg edema. The patient remains in sinus rhythm. There is no recurrence of junctional tachycardia or atrial fibrillation. There are no TIA or CVA symptoms. The patient denies any dizziness or syncope. There is no ventricular or atrial arrhythmia seen on the monitor. OBJECTIVE: GENERAL: On examination, the patient is of frail build and appears chronically ill. Appears older than her stated age. VITAL SIGNS: The patient is afebrile, with a temperature of 98.5 degrees Fahrenheit. Pulse is 78 beats per minute. Blood pressure 147/51, respirations are 17 per minute. O2 sats are 100% on 3 liters nasal cannula. HEENT: Head is atraumatic, normocephalic. Eyes: Pupils are equal, round, regular, reactive to light and accommodation. Extraocular movements are normal. There is no conjunctival pallor. There is no scleral icterus. ENT is negative. NECK: Supple. There is no JVD. Carotids are equal. There are no bruits. There is no lymphadenopathy. There is no goiter. There is no neck stiffness. Trachea is central. LUNGS: Show diminished air entry with prolonged expiration. There are a few dry crackles, right base more than left base. On percussion, there is hyperresonance throughout. There is no wheezing or rhonchi. S1, S2 are heard. There is no S3 gallop. There is no S4 gallop. S1 is of normal intensity. There is a systolic murmur in the left sternal border, in the apex. There is no rub. ABDOMEN: Soft, nontender. There is no hepatosplenomegaly. Bowel sounds are well-heard. There are no tender areas or masses. EXTREMITIES: Femorals are diminished. Leg pulses are diminished. There is no pedal edema. There is no DVT or cellulitis. There is no calf tenderness. There is no cyanosis or clubbing. There are no femoral bruits. 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 PSYCHIATRIC: The patient's judgment and insight are intact. Her affect is normal. LABORATORY DATA: The patient's sodium was 141.8, potassium 4.8, chloride was 109. The patient's BUN was 35, creatinine was 0.78. GFR greater than 60. Her glucose was 161. Her calcium was 9.2. IMPRESSION: 1. JUNCTIONAL TACHYCARDIA, CONVERTED TO SINUS RHYTHM. 2. PAROXYSMAL ATRIAL FIBRILLATION, AT PRESENT SINUS RHYTHM. There is no recurrence. Continue the patient's Multaq at 400 mg p.o. b.i.d. Would stop the patient's IV Cardizem and start the patient on verapamil CD 180 mg p.o. q.12 hours. Continue Eliquis. 3. COPD, STABLE. No acute exacerbation. 4. PNEUMONIA. Seems to be improving. Patient on antibiotics. Continue respiratory treatments. 5. MRSA BACTEREMIA, POSSIBLE ENDOCARDITIS. Patient is being treated with antibiotics. Will be treated for at least 6 to 8 weeks. 6. DIASTOLIC HEART FAILURE IN A PATIENT WITH HISTORY OF LV DIASTOLIC DYSFUNCTION, AT PRESENT COMPENSATED. 7. UZMA'S DISEASE. Patient *------*. 8. CORONARY ARTERY DISEASE. Patient without any anginal symptoms. 9. DIABETES MELLITUS TYPE 2, INSULIN-DEPENDENT. Continue the patient's insulin and other anti-diabetic medication. 10. HYPERTENSION. Patient is stable. 11. PRERENAL AZOTEMIA. Patient recovered. Note that the patient's medications have been reviewed. The patient was seen for at least 40 minutes, with more than 50% of the time spent on direct patient care. The patient's medications have been adjusted. The patient's Cardizem has been stopped, and the patient has been started on p.o. verapamil. Would continue other current medications, including Eliquis. Medical decision-making is of moderate to high complexity. Discussed with other care-giving providers on this case. Will follow with you. Thank you. DICTATING PHYSICIAN: SASHA OSULLIVAN M.D. [id number] DEBBY#: [id number] ID: [id number] JOB#: [id number] ACCT: [id number] cc: >
[2018-04-05] MEDS: LATANOPROST 0.005% OPH SOLN 2.5 ML OU SCH (21:10)
[2018-04-06] MEDS: IPRATROPIUM/ALBUTEROL 0.5-2.5 MG/3 ML AMPUL NEB SCH ×4 (02:02→20:29)
[2018-04-06] MEDS: LANSOPRAZOLE 15 MG TAB.RAP.DR PO SCH (05:32)
[2018-04-06] MEDS: INSULIN LISPRO 100 UNIT/ML 3 ML VIAL SUBCUT PRN ×3 (07:32→21:36)
[2018-04-06] MEDS: HUM INSULIN NPH/REG INSULIN HM 100 UNIT/1 ML 3 ML SUBCUT SCH ×3 (07:32→16:35)
[2018-04-06] MEDS: BUDESONIDE NEB 0.5 MG/2 ML AMPUL NEB SCH ×2 (08:00→20:30)
[2018-04-06] MEDS: GABAPENTIN 400 MG CAPSULE PO SCH ×3 (08:52→16:36)
[2018-04-06] MEDS: APIXABAN 5 MG TABLET PO SCH ×2 (08:52→21:36)
[2018-04-06] MEDS: LOSARTAN POTASSIUM 50 MG TABLET PO SCH (08:52)
[2018-04-06] MEDS: CHOLECALCIFEROL (D3) 1,000 UNIT TABLET PO SCH (08:52)
[2018-04-06] MEDS: GUAIFENESIN 600 MG TABLET.SA PO SCH ×2 (08:52→21:36)
[2018-04-06] MEDS: PREDNISONE 20 MG TABLET PO SCH ×2 (08:52→16:36)
[2018-04-06] MEDS: VERAPAMIL HCL 180 MG TABLET.SA PO SCH (08:53)
[2018-04-06] MEDS: FERROUS SULFATE 325 MG TABLET PO SCH (08:53)
[2018-04-06] MEDS: LACTOBACILLUS ACIDOPHILUS 250 MG TAB PO SCH (08:53)
[2018-04-06] MEDS: CYANOCOBALAMIN (VITAMIN B-12) 1,000 MCG TABLET PO SCH (08:53)
[2018-04-06] MEDS: DRONEDARONE HYDROCHLORIDE 400 MG TABLET PO SCH ×2 (08:53→16:40)
[2018-04-06] MEDS: CALCIUM CARBONATE 500 MG TABLET PO SCH (08:53)
[2018-04-06] MEDS: NORMAL SALINE 10 ML SDV (SCHEDULED) IV SCH ×2 (08:54→21:35)
[2018-04-06] MEDS: FENOFIBRATE NANOCRYSTALLIZED 145 MG TABLET PO SCH (08:54)
[2018-04-06] MEDS: VANCOMYCIN HCL 1,250 MG in DEXTROSE 5%-WATER 250 ML IV SCH (13:31)
--- NOTE | 2018-04-06 13:46 | PDOC PROGRESS REPORT ---
Subjective Progress Note for:: 04/06/18 Subjective:: No chest pain, difficulty with breathing, or palpitation. Tolerating oral Verapamil therapy. Appetite and po intake satisfactory. No nausea, vomiting, or abdominal pain. Reason For Visit: PNEUMONIA,MULTIPLE CO-MORBID CONDITIONS Physical Exam Vital Signs: Temp Pulse Resp BP Pulse Ox 97.8 F 84 18 150/53 H 100 04/06/18 11:19 04/06/18 11:19 04/06/18 11:19 04/06/18 11:19 04/06/18 11:19 Intake & Output 04/05/18 04/06/18 04/07/18 06:59 06:59 06:59 Intake Total 854 922 237 Balance 854 922 237 Weight 55 kg 56.9 kg Physical Exam: General appearance: PRESENT: no acute distress Head exam: PRESENT: atraumatic, normocephalic Mouth exam: PRESENT: moist Respiratory exam: PRESENT: decreased breath sounds - at lung bases, minimal prolonged expiratory phase, rhonchi - minimally at expiratory phase Cardiovascular exam: PRESENT: RRR. ABSENT: diastolic murmur, rubs, systolic murmur Vascular exam: ABSENT: pallor GI/Abdominal exam: PRESENT: normal bowel sounds, soft. ABSENT: distended, guarding, mass, organomegaly, rebound, tenderness Extremities exam: ABSENT: pedal edema Musculoskeletal exam: PRESENT: deformity - related to multiple joints involvement with arthritis Neurological exam: PRESENT: alert, awake, oriented to person, oriented to place , oriented to time, oriented to situation, CN II-XII grossly intact. ABSENT: motor sensory deficit Psychiatric exam: PRESENT: appropriate affect, normal mood. ABSENT: homicidal ideation, suicidal ideation Skin exam: PRESENT: dry, warm Results Laboratory Results: 04/03/18 06:10 04/05/18 05:15 03/23/18 04/04/18 04/04/18 00:46 09:57 09:57 Creatine Kinase 30 34 CK-MB (CK-2) 1.20 Troponin I < 0.012 Impressions: Head CT 03/22/18 21:22 IMPRESSION: No acute intracranial hemorrhage or acute territorial infarct. Mild chronic changes of atrophy and microvascular ischemia. EVIDENCE OF ACUTE STROKE: NO. Interventional Vascular Procedure 03/31/18 00:00 IMPRESSION: SUCCESSFUL PLACEMENT OF A 5 FR DUAL LUMEN 30 CM PICC IN THE right basilic VEIN. PICC Line Insertion 03/31/18 00:00 IMPRESSION: SUCCESSFUL PLACEMENT OF A 5 FR DUAL LUMEN 30 CM PICC IN THE right basilic VEIN. Chest X-Ray 04/04/18 00:00 IMPRESSION: Persistent airspace disease in the right lung. Small pleural effusions. Likely subsegmental atelectasis in the left base. Cardiomegaly without codi pulmonary edema. Assessment & Plan - Diagnosis (1) Right lower lobe pneumonia Qualifiers: Pneumonia type: due to methicillin-resistant Staphylococcus aureus (MRSA) Qualified Code(s): J15.212 - Pneumonia due to Methicillin resistant Staphylococcus aureus Is this a current diagnosis for this admission?: Yes (2) Chronic obstructive pulmonary disease Qualifiers: COPD type: unspecified COPD Qualified Code(s): J44.9 - Chronic obstructive pulmonary disease, unspecified Is this a current diagnosis for this admission?: Yes (3) Chronic atrial fibrillation Is this a current diagnosis for this admission?: Yes - Time Time Spent with patient: 25-34 minutes Medications reviewed and adjusted accordingly: Yes Anticipated discharge: Home with Homehealth Within: Other - Inpatient Certification Based on my medical assessment, after consideration of the patient's comorbidities, presenting symptoms, or acuity I expect that the services needed warrant INPATIENT care.: Yes I certify that my determination is in accordance with my understanding of Medicare's requirements for reasonable and necessary INPATIENT services [42 CFR 412.3e].: Yes Medical Necessity: Need Close Monitoring Due to Risk of Patient Decompensation, Need For Continuous Telemetry Monitoring, Need for Nebulizer Therapy and Monitoring of Response, Need for IV Antibiotics, Risk of Complication if Not Cared For in Hospital 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
[2018-04-06 14:42] LABS: VANCOMYCIN,TROUGH 14.2 ug/mL (5.0-20.0)
[2018-04-06] MEDS: LATANOPROST 0.005% OPH SOLN 2.5 ML OU SCH (21:33)
--- NOTE | 2018-04-06 21:35 | PROGRESS NOTE E ---
Progress Note NAME: JESSY PARKER : 1940 AGE: 77Y DATE: 04/06/2018 ROOM: 303 SUBJECTIVE: The patient is in no distress. She denies any chest pain or discomfort. There is no cough or sputum production. There is no PND, orthopnea, or leg edema. There is no chest pain or discomfort. The patient remains in sinus rhythm. There is no recurrence of junctional tachycardia or atrial fibrillation. There are no TIA or CVA symptoms. There is no bleeding on *------*. The patient denies any dizziness. There is no ventricular or atrial arrhythmia seen on the monitor. OBJECTIVE: GENERAL: On examination the patient is of frail built and appears to be chronically ill. Appears older than her stated age. VITAL SIGNS: She is afebrile with a temperature of 97.8 degrees Fahrenheit orally, pulse of 84 beats per minute, blood pressure is 150/53, respirations are 18 per minute, O2 saturations are 100% on 3 liters nasal cannula. HEENT: Head is atraumatic, normocephalic. Eyes: Pupils are equal, round and regular, reactive to light and accommodation. Extraocular movements are normal. There is no conjunctival pallor. There is no scleral icterus. ENT is negative. NECK: Supple. There is no JVD. There is no lymphadenopathy. There is no goiter. Carotids are equal. There is no bruit. There is no neck stiffness. Trachea is central. LUNGS: Show diminished air entry with prolonged expiration. There are a few dry crackles, much less than yesterday in the right base. The left base appears to be clear on percussion. There is hyperresonance throughout. There is no wheezing or rhonchi. HEART: S1, S2 is heard. There is no S3 gallop. There is no S4 gallop. S1 is of normal intensity. There is a systolic murmur in the left sternal border and in the apex. There is no rub. ABDOMEN: Soft, nontender. There is no hepatosplenomegaly. Bowel sounds are well heard. There are no tender areas or masses. EXTREMITIES: Femorals are diminished. There are no femoral bruits. Leg pulses are diminished. There is no pedal edema. There is no cyanosis or clubbing. There is no DVT or cellulitis. There is no calf tenderness. CENTRAL NERVOUS SYSTEM: The patient is conscious, awake, alert and oriented x3 with no focal deficits. PSYCHIATRIC: The patient's judgment and insight are intact. Her affect is normal. ER LABORATORY DATA: The patient's glucose is 315. IMPRESSION: 1. JUNCTIONAL TACHYCARDIA CONVERTED TO SINUS RHYTHM, NO RECURRENCE. 2. PAROXYSMAL ATRIAL FIBRILLATION AT PRESENT IN SINUS RHYTHM. THERE IS NO RECURRENCE. Continue the patient's Multaq at 400 mg p.o. b.i.d. Continue the patient's verapamil CD at 180 mg p.o. q.12 hours. Continue Eliquis. Would recommend increasing the verapamil CD to 240 mg p.o. q.12 hours as needed, if tolerated by the patient. 3. COPD, STABLE. NOT IN ACUTE EXACERBATION. 4. PNEUMONIA, RIGHT LOWER LOBE. Seems to be improving. Continue antibiotics. Continue respiratory treatments. 5. MRSA BACTEREMIA, POSSIBLE ENDOCARDITIS. Patient treated with antibiotics. There is no sequelae of valvular complication secondary to endocarditis. 6. DIASTOLIC HEART FAILURE, AT PRESENT PATIENT IS COMPENSATED. 7. UZMA'S DISEASE. The patient on steroids. 8. CORONARY ARTERY DISEASE. The patient without any anginal symptoms. 9. DIABETES MELLITUS TYPE 2, INSULIN DEPENDENT. Continue the patient's insulin and other antidiabetic medication. 10. HYPERTENSION. The patient's blood pressure is stable, although not optimally controlled. Considering increasing the patient's verapamil if needed. 11. PRERENAL AZOTEMIA, RESOLVED. The patient's renal function was normal. RECOMMENDATIONS: The patient's medications have been reviewed. I have increased the patient's verapamil to 240 mg p.o. q.12 hours. TIME SPENT: The total time spent on the patient was 40 minutes. More than 50% of the time spent on direct patient care. The patient's medications have been adjusted. Discussed with the patient and patient's granddaughter. The granddaughter will text the patient's daughter my cell number since the patient wants to follow up with me. Medical decision making is still of moderate to high complexity involving also the necessity to change the patient's medication to more optimally control the heart rate and blood pressure. We will follow with you. We will recheck the patient's chest x-ray in the a.m., this has been ordered. DICTATING PHYSICIAN: SASHA OSULLIVAN M.D. [id number] PHY#: [id number] ID: [id number] JOB#: [id number] ACCT: [id number] cc: >
[2018-04-06] MEDS: VERAPAMIL HCL 240 MG TABLET.SA PO SCH (21:38)
[2018-04-07] MEDS: IPRATROPIUM/ALBUTEROL 0.5-2.5 MG/3 ML AMPUL NEB SCH ×3 (01:56→14:15)
[2018-04-07] MEDS: LANSOPRAZOLE 15 MG TAB.RAP.DR PO SCH (06:21)
[2018-04-07] MEDS: HUM INSULIN NPH/REG INSULIN HM 100 UNIT/1 ML 3 ML SUBCUT SCH ×2 (07:57→12:27)
[2018-04-07] MEDS: BUDESONIDE NEB 0.5 MG/2 ML AMPUL NEB SCH (08:09)
[2018-04-07] MEDS: VERAPAMIL HCL 240 MG TABLET.SA PO SCH (08:12)
[2018-04-07] MEDS: LOSARTAN POTASSIUM 50 MG TABLET PO SCH (08:13)
--- NOTE | 2018-04-07 08:39 | PDOC DISCHARGE SUMMARY ---
General - Admit/Disc Date/PCP Admission Date/Primary Care Provider: 03/22/18 23:22 KEILY CHRISTIANSON MD Discharge Date: 04/07/18 - Discharge Diagnosis (1) Acute hypoxemic respiratory failure Is this a current diagnosis for this admission?: Yes Summary: Currently all resolvingFollow with the Dr. Patino (2) [place] disease Is this a current diagnosis for this admission?: Yes Summary: Continues to prednisone 20 mg p.o. daily (3) Anemia Is this a current diagnosis for this admission?: Yes Summary: Currently all stable (4) Chronic atrial fibrillation Is this a current diagnosis for this admission?: Yes Summary: Continues to Eliquis and continues to verapamil (5) Hypoalbuminemia Is this a current diagnosis for this admission?: Yes Summary: High-protein diet (6) MRSA (methicillin resistant Staphylococcus aureus) septicemia Is this a current diagnosis for this admission?: Yes Summary: Continues to vancomycin's for -4 weeks patients to receive the 2 weeks treatment in the hospital already (7) Pneumonia Is this a current diagnosis for this admission?: Yes Summary: Continues to vancomycin (8) COPD (chronic obstructive pulmonary disease) Is this a current diagnosis for this admission?: Yes Summary: Continues to nebulizer treatment (9) Chronic kidney disease Is this a current diagnosis for this admission?: Yes Summary: Currently all stable (10) Congestive heart failure Is this a current diagnosis for this admission?: Yes Summary: Currently all stable (11) Coronary artery disease Is this a current diagnosis for this admission?: Yes (12) Endocarditis Is this a current diagnosis for this admission?: Yes Summary: Patient is to follow outpatients cardiology to repeat the echocardiogram after finishing the treatment - Additional Information Resuscitation Status: Do Not Resuscitate Prescriptions: Vancomycin HCl 750 mg IV DAILY #14 [email or web address] Home Medications: Apixaban [Eliquis] 5 mg PO Q12 03/22/18 Budesonide 0.5 mg NEB BID 03/22/18 Calcium Carbonate [Calcium] 600 mg PO MEALS 03/22/18 Cholecalciferol (Vitamin D3) [Vitamin D3 1000 Unit Tablet] 1,000 unit PO DAILY 03/22/18 Digoxin [Lanoxin 0.125 mg Tablet] 0.125 mg PO MOWEFR@1000 03/22/18 Diltiazem HCl [Cardizem Cd 240 mg Capsule.cr] 240 mg PO Q12 03/22/18 Dronedarone Hydrochloride [Multaq 400 mg Tablet] 400 mg PO BID 03/22/18 Fenofibrate Nanocrystallized [Fenofibrate] 145 mg PO DAILY 03/22/18 Ferrous Sulfate [Ferosul] 325 mg PO DAILY 03/22/18 Furosemide [Lasix] 40 mg PO DAILY 03/22/18 Gabapentin 800 mg PO TID 03/22/18 Hum Insulin NPH/Reg Insulin Hm [Novolin 70-30 100 Unit/ml Vial] 15 unit SQ QHS 03/22/18 Hum Insulin NPH/Reg Insulin Hm [Novolin 70-30 100 Unit/ml Vial] 30 unit SQ DAILY 03/22/18 Lactobacillus Acidophilus [Acidophilus] 1 tab PO DAILY 03/22/18 Levalbuterol HCl [Xopenex Neb 0.63 mg/3 ml Ampul] 0.63 mg NEB Q8H 03/22/18 Levalbuterol Tartrate [Xopenex Hfa] 1 puff IH Q4HP PRN 03/22/18 Losartan Potassium 100 mg PO DAILY 03/22/18 Omeprazole 20 mg PO BID 03/22/18 Cyanocobalamin (Vitamin B-12) [Vitamin B-12 100 mcg Tablet] 100 mcg PO DAILY 07/31 Latanoprost [Xalatan 0.005% Oph Soln 2.5 ml] 1 drop OU QHS 03/23/18 Acetylcysteine [Mucomist 10% Neb 400 mg/4 mL Vial] 200 mg IH BID 03/25/18 Prednisone [Deltasone 20 mg Tablet] 20 mg PO DAILY 03/25/18 Vancomycin HCl 750 mg IV DAILY #14 vial.port 04/04/18 History of Present Illness History of Present Illness: JESSY PARKER is a 77 year old female This is 77-year-old female multiple medical problems admitting because of the shortness of the breath pneumonia and diagnosed with MRSA Hospital Course Hospital Course: This 77-year-old female with multiple medical problem as able admitting because of the MRSA pneumonia and patient was started with IV antibiotics patient also seen by the ID consult for the form and had echocardiogram done which suggest a questionable endocarditis but not sureTreated with the 4 weeks antibiotic anyway with the significant history of the MRSA in the past and patient was on a p.o. Bactrim once before prophylactically Patient seen by Dr. Patino's the pulmonary Is and also seen by the health program manager due to the patient have a junctional rhythm and tachycardia and patient was initially put on a Cardizem drip and switched to Cardizem p.o. twice a day patient is already on Eliquis Patient's otherwise remained stable throughout the hospitalizations discussed with the daughter and the bedside regarding the patient's current conditions with the multiple comorbidity Discussed about the patient's to go to the rehab place but patients refused to go and the daughter suggest the patient's current do better at home with the home health and will also arrange the physical therapy and oxygen Patients we also arrange the home health with the IV vancomycin's and will do a Saturday and vancomycin's trough level and a Chem-7 and keep a vancomycin trough level between 15-20 range Patient's otherwise remained stable and discharged home Physical Exam Vital Signs: Temp Pulse Resp BP Pulse Ox 98.1 F 77 18 176/68 H 100 04/07/18 07:20 04/07/18 07:20 04/07/18 07:20 04/07/18 07:20 04/07/18 07:20 Intake & Output 04/06/18 04/07/18 04/08/18 06:59 06:59 06:59 Intake Total 922 926 Balance 922 926 Weight 56.9 kg 56 kg General appearance: PRESENT: no acute distress, well-developed, well-nourished Head exam: PRESENT: atraumatic, normocephalic Eye exam: PRESENT: conjunctiva pink, EOMI, PERRLA. ABSENT: scleral icterus Ear exam: PRESENT: normal external ear exam Mouth exam: PRESENT: moist, tongue midline Neck exam: PRESENT: full ROM. ABSENT: carotid bruit, JVD, lymphadenopathy, thyromegaly Respiratory exam: PRESENT: clear to auscultation koko Cardiovascular exam: PRESENT: RRR. ABSENT: diastolic murmur, rubs, systolic murmur Pulses: PRESENT: normal dorsalis pedis pul, +2 pedal pulses bilateral Vascular exam: PRESENT: normal capillary refill GI/Abdominal exam: PRESENT: normal bowel sounds, soft. ABSENT: distended, guarding, mass, organolmegaly, rebound, tenderness Rectal exam: PRESENT: deferred Musculoskeletal exam: PRESENT: ambulatory Neurological exam: PRESENT: alert, awake, oriented to person, oriented to place , oriented to time, oriented to situation, CN II-XII grossly intact. ABSENT: motor sensory deficit Psychiatric exam: PRESENT: appropriate affect, normal mood. ABSENT: homicidal ideation, suicidal ideation Skin exam: PRESENT: dry, intact, warm. ABSENT: cyanosis, rash Results Laboratory Results: 04/03/18 06:10 04/06/18 13:25 04/06/18 13:25 Creatinine 0.74 Est GFR ( Amer) > 60 Est GFR (Non-Af Amer) > 60 03/23/18 04/04/18 04/04/18 00:46 09:57 09:57 Creatine Kinase 30 34 CK-MB (CK-2) 1.20 Troponin I < 0.012 Impressions: Head CT 03/22/18 21:22 IMPRESSION: No acute intracranial hemorrhage or acute territorial infarct. Mild chronic changes of atrophy and microvascular ischemia. EVIDENCE OF ACUTE STROKE: NO. Interventional Vascular Procedure 03/31/18 00:00 IMPRESSION: SUCCESSFUL PLACEMENT OF A 5 FR DUAL LUMEN 30 CM PICC IN THE right basilic VEIN. PICC Line Insertion 03/31/18 00:00 IMPRESSION: SUCCESSFUL PLACEMENT OF A 5 FR DUAL LUMEN 30 CM PICC IN THE right basilic VEIN. Chest X-Ray 04/04/18 00:00 IMPRESSION: Persistent airspace disease in the right lung. Small pleural effusions. Likely subsegmental atelectasis in the left base. Cardiomegaly without codi pulmonary edema. Qualifiers - * PATIENT BEING DISCHARGED WITH ANY OF THE FOLLOWING DIAGNOSIS: No Plan Time Spent: Greater than 30 Minutes - Discharge home with the stable conditions recheck the CBC in 1 week and continues to vancomycin trough and Chem-7's for the next 2 weeks per protocol
[2018-04-07] MEDS: DRONEDARONE HYDROCHLORIDE 400 MG TABLET PO SCH (09:49)
[2018-04-07] MEDS: LACTOBACILLUS ACIDOPHILUS 250 MG TAB PO SCH (09:50)
[2018-04-07] MEDS: CYANOCOBALAMIN (VITAMIN B-12) 1,000 MCG TABLET PO SCH (09:50)
[2018-04-07] MEDS: GABAPENTIN 400 MG CAPSULE PO SCH ×2 (09:50→13:17)
[2018-04-07] MEDS: CALCIUM CARBONATE 500 MG TABLET PO SCH (09:51)
[2018-04-07] MEDS: GUAIFENESIN 600 MG TABLET.SA PO SCH (09:51)
[2018-04-07] MEDS: PREDNISONE 20 MG TABLET PO SCH (09:51)
[2018-04-07] MEDS: FERROUS SULFATE 325 MG TABLET PO SCH (09:51)
[2018-04-07] MEDS: APIXABAN 5 MG TABLET PO SCH (09:52)
[2018-04-07] MEDS: CHOLECALCIFEROL (D3) 1,000 UNIT TABLET PO SCH (09:52)
[2018-04-07] MEDS: FENOFIBRATE NANOCRYSTALLIZED 145 MG TABLET PO SCH (09:52)
[2018-04-07] MEDS: NORMAL SALINE 10 ML SDV (SCHEDULED) IV SCH (09:53)
--- NOTE | 2018-04-07 10:01 | RADIOLOGY REPORT (SQ) ---
EXAM DESCRIPTION: CHEST SINGLE VIEW COMPLETED DATE/TIME: 04/07/2018 9:42 am REASON FOR STUDY: Pneumonia COMPARISON: 04/04/2018 EXAM PARAMETERS: NUMBER OF VIEWS: One view. TECHNIQUE: Single frontal radiographic view of the chest acquired. RADIATION DOSE: NA LIMITATIONS: None. FINDINGS: LUNGS AND PLEURA: Low lung volumes. Elevation of the right hemidiaphragm, unchanged find ing. Persistent airspace disease in the right lung and at the left lung base has decreased. Small b ilateral pleural effusions have almost resolved. No pneumothorax. MEDIASTINUM AND HILAR STRUCTURES: No masses. Contour normal. HEART AND VASCULAR STRUCTURES: Stable appearance. BONES: No acute findings. HARDWARE: PICC line on the right, unchanged in position. OTHER: No other significant finding. IMPRESSION: 1 Interval improvement in the appearance of the lungs, since the prior study dated 2017. Persistent airspace disease in the right lung and left base, have significantly decreased. 2. Small bilateral pleural effusions have almost resolved. TECHNICAL DOCUMENTATION: JOB ID: [id number] [employer]- All Rights Reserved Reading location - IP/workstation name: [email or web address]
[2018-04-07] MEDS: VANCOMYCIN HCL 1,250 MG in DEXTROSE 5%-WATER 250 ML IV SCH (13:16)
--- NOTE | 2018-04-07 13:37 | CONSULTATION REPORT E ---
Consultation Report NAME: JESSY PARKER : 1940 AGE: 77Y DATE: 04/04/2018 303 A TO: SASHA OSULLIVAN M.D. FROM: KEILY CHRISTIANSON M.D. Requesting Physician Note that the patient was seen at 10 a.m. and 55 minutes spent on the patient with more than 50% of the time spent in direct patient care. REASON FOR CONSULTATION: Patient with SVT/junctional tachycardia. HISTORY: Patient's records reviewed. Patient is a 77-year-old female who is a DNR STATUS, who was admitted with acute exacerbation of COPD and history of atrial fibrillation and MRSA bacteremia with presumed treatment for endocarditis. She also has a history of coronary artery disease without any anginal symptoms, history of asthma and bronchitis and diabetes mellitus type 2, hyperlipidemia and hypertension. The patient was placed on antibiotics, including a PICC line being placed for outpatient antibiotic therapy and the patient was able to go home when she developed rapid narrow complex tachycardia, which appeared to be junctional tachycardia with rate about 145-150 beats per minute versus atrial flutter at a rate of 145-150 beats per minute. The patient, at that time, was complaining of pain in her jaw and throat with a stable blood pressure. Initially, since the patient had just symptoms of angina, it was thought best to cardiovert the patient, and hence, I advised the nurse to put on the defibrillator electrodes and I went up to cardiovert the patient, at which time the patient stated that she had no further jaw or throat pain. At this time, the patient was given 6 mg of adenosine and she converted to sinus rhythm. With the slowing, there were no P-waves and there was no evidence of atrial flutter, and hence, this was junctional rhythm, and also, the patient was supposed to have chronic atrial fibrillation and is now in sinus rhythm. Note that the patient already is on Eliquis as chronic anticoagulation therapy. Once the patient converted, there were no symptoms of TIA or CVA. She was moving all 4 extremities and she was awake, alert, and oriented x3. The patient denied any chest pain or discomfort. There was no shortness of breath. There was no PND, orthopnea. There was no leg edema. The patient was started on Cardizem at 5 mg per hour infusion and p.o. Cardizem was held. The patient already is on Multaq. Will continue that. PAST MEDICAL HISTORY: Possibility of history of atrial fibrillation. The patient is on Cardizem CD at 240 mg p.o. q. 12 hours and also Multaq and also on Eliquis. She has a past history of congestive heart failure, most likely diastolic dysfunction. She has a history of coronary artery disease. No recent anginal symptoms. She has a history of hyperlipidemia, hypertension. She has a history of asthma and bronchitis and pneumonia and COPD. She has a history of diabetes mellitus type 2, insulin requiring. She initially had a diagnosis of chronic kidney disease, but this admission, the patient's renal function and GFR have been normal. She also has a history of Giardia and hiatal hernia. She has a history of and history of anemia. PAST SURGICAL HISTORY: . SOCIAL HISTORY: The patient has never smoked. The patient lives with family. Advanced directive: The patient is a DNR. Her daughter is the surrogate healthcare decision maker. FAMILY HISTORY: Positive for hypertension and coronary artery disease. ALLERGIES: She is allergic to: 1. ASPIRIN. 2. COLCHICINE. 3. IODINE. 4. PENICILLIN. 5. SHELLFISH. MEDICATIONS: Include: . END OF DICTATION DICTATING PHYSICIAN: SASHA OSULLIVAN M.D. [id number] PHY#: [id number] ID: [id number] JOB#: [id number] ACCT: [id number] cc:SASHA OSULLIVAN M.D. >
--- NOTE | 2018-04-07 14:34 | PDOC PROGRESS REPORT ---
Subjective Progress Note for:: 04/01/18 Subjective:: Unchanged Reason For Visit: PNEUMONIA,MULTIPLE CO-MORBID CONDITIONS Physical Exam Vital Signs: Temp Pulse Resp BP Pulse Ox 98.4 F 74 18 149/64 H 98 04/01/18 07:57 04/01/18 07:57 04/01/18 07:57 04/01/18 07:57 04/01/18 07:57 Intake & Output 03/31/18 04/01/18 04/02/18 06:59 06:59 06:59 Intake Total 1602 1324 Output Total 200 Balance 1602 1124 Weight 55.7 kg General appearance: PRESENT: no acute distress, cooperative, disheveled, well- developed, well-nourished Head exam: PRESENT: atraumatic, normocephalic Eye exam: PRESENT: conjunctiva pale, EOMI. ABSENT: nystagmus, periorbital swelling, scleral icterus Mouth exam: PRESENT: dry mucosa, neck supple, tongue midline Neck exam: ABSENT: carotid bruit, JVD, lymphadenopathy, thyromegaly, tracheal deviation, tracheostomy Respiratory exam: PRESENT: decreased breath sounds, prolonged expiratory phas, rales, rhonchi, tachypnea, wheezes, other. ABSENT: retraction, stridor Cardiovascular exam: PRESENT: irregular rhythm, +S1 Pulses: PRESENT: normal radial pulses GI/Abdominal exam: PRESENT: normal bowel sounds, soft Extremities exam: ABSENT: calf tenderness, clubbing, joint swelling Musculoskeletal exam: ABSENT: deformity, dislocation Neurological exam: PRESENT: awake, oriented to person, oriented to place, oriented to time Psychiatric exam: PRESENT: flat affect Skin exam: PRESENT: dry, warm Results Laboratory Results: 03/31/18 04:50 03/31/18 04:50 03/31/18 12:45 Carbonic Acid 0.83 L HCO3/H2CO3 Ratio 26:1 ABG pH 7.52 H ABG pCO2 27.7 L ABG pO2 72.9 L ABG HCO3 22.3 ABG O2 Saturation 96.3 ABG Base Excess 0.2 FiO2 2L 03/23/18 00:46 Creatine Kinase 30 Impressions: Head CT 03/22/18 21:22 IMPRESSION: No acute intracranial hemorrhage or acute territorial infarct. Mild chronic changes of atrophy and microvascular ischemia. EVIDENCE OF ACUTE STROKE: NO. Chest X-Ray 03/31/18 00:00 IMPRESSION: SUCCESSFUL PLACEMENT OF A 5 FR DUAL LUMEN 30 CM PICC IN THE right basilic VEIN. Interventional Vascular Procedure 03/31/18 00:00 IMPRESSION: SUCCESSFUL PLACEMENT OF A 5 FR DUAL LUMEN 30 CM PICC IN THE right basilic VEIN. PICC Line Insertion 03/31/18 00:00 IMPRESSION: SUCCESSFUL PLACEMENT OF A 5 FR DUAL LUMEN 30 CM PICC IN THE right basilic VEIN. Assessment & Plan - Diagnosis (1) Right lower lobe pneumonia Qualifiers: Pneumonia type: due to methicillin-resistant Staphylococcus aureus (MRSA) Qualified Code(s): J15.212 - Pneumonia due to Methicillin resistant Staphylococcus aureus Is this a current diagnosis for this admission?: Yes Plan: Essentially unchanged (2) Hiatal hernia with GERD Is this a current diagnosis for this admission?: Yes Plan: We will consult surgeon evaluate for possible laparoscopic [place]ún[place] when patient is more stable (3) Chronic atrial fibrillation Is this a current diagnosis for this admission?: Yes Plan: Appears to be stable at this time (4) Acute chronic obstructive pulmonary disease with respiratory failure Is this a current diagnosis for this admission?: Yes Plan: unchanged
--- NOTE | 2018-04-07 14:38 | PDOC PROGRESS REPORT ---
Subjective Progress Note for:: 04/03/18 Subjective:: Unchanged Reason For Visit: PNEUMONIA,MULTIPLE CO-MORBID CONDITIONS Physical Exam Vital Signs: Temp Pulse Resp BP Pulse Ox 97.7 F 71 20 143/65 H 95 04/03/18 08:00 04/03/18 08:33 04/03/18 08:33 04/03/18 08:00 04/03/18 08:33 Intake & Output 04/02/18 04/03/18 04/04/18 06:59 06:59 06:59 Intake Total 319 1900 Balance 319 1900 Weight 55.7 kg 56.7 kg General appearance: PRESENT: no acute distress, cooperative, disheveled, well- developed, well-nourished Head exam: PRESENT: atraumatic, normocephalic Eye exam: PRESENT: conjunctiva pale, EOMI. ABSENT: nystagmus, periorbital swelling, scleral icterus Mouth exam: PRESENT: dry mucosa, neck supple, tongue midline Neck exam: ABSENT: carotid bruit, JVD, lymphadenopathy, thyromegaly, tracheal deviation, tracheostomy Respiratory exam: PRESENT: decreased breath sounds, prolonged expiratory phas, rales, rhonchi, unlabored. ABSENT: retraction, stridor Cardiovascular exam: PRESENT: RRR, +S1, +S2 Pulses: PRESENT: normal radial pulses GI/Abdominal exam: PRESENT: normal bowel sounds, soft Extremities exam: ABSENT: calf tenderness, clubbing, joint swelling Musculoskeletal exam: ABSENT: deformity, dislocation Neurological exam: PRESENT: alert, awake Psychiatric exam: PRESENT: normal mood Skin exam: PRESENT: dry, warm Results Laboratory Results: 04/03/18 06:10 04/03/18 06:10 04/03/18 04/03/18 06:10 06:10 WBC 9.6 RBC 3.29 L Hgb 9.3 L Hct 27.7 L MCV 84 MCH 28.3 MCHC 33.6 RDW 17.5 H Plt Count 232 Seg Neutrophils % Not Reportable Lymphocytes % Not Reportable Monocytes % Not Reportable Eosinophils % Not Reportable Basophils % Not Reportable Absolute Neutrophils Not Reportable Absolute Lymphocytes Not Reportable Absolute Monocytes Not Reportable Absolute Eosinophils Not Reportable Absolute Basophils Not Reportable Sodium 141.5 Potassium 4.9 Chloride 108 H Carbon Dioxide 28 Anion Gap 6 BUN 31 H Creatinine 0.72 Est GFR ( Amer) > 60 Est GFR (Non-Af Amer) > 60 Glucose 139 H Calcium 9.1 03/23/18 00:46 Creatine Kinase 30 Impressions: Head CT 03/22/18 21:22 IMPRESSION: No acute intracranial hemorrhage or acute territorial infarct. Mild chronic changes of atrophy and microvascular ischemia. EVIDENCE OF ACUTE STROKE: NO. Chest X-Ray 03/31/18 00:00 IMPRESSION: SUCCESSFUL PLACEMENT OF A 5 FR DUAL LUMEN 30 CM PICC IN THE right basilic VEIN. Interventional Vascular Procedure 03/31/18 00:00 IMPRESSION: SUCCESSFUL PLACEMENT OF A 5 FR DUAL LUMEN 30 CM PICC IN THE right basilic VEIN. PICC Line Insertion 03/31/18 00:00 IMPRESSION: SUCCESSFUL PLACEMENT OF A 5 FR DUAL LUMEN 30 CM PICC IN THE right basilic VEIN. Assessment & Plan - Diagnosis (1) Right lower lobe pneumonia Qualifiers: Pneumonia type: due to methicillin-resistant Staphylococcus aureus (MRSA) Qualified Code(s): J15.212 - Pneumonia due to Methicillin resistant Staphylococcus aureus Is this a current diagnosis for this admission?: Yes Plan: Clinically minimally better:Patient remains dependent on noninvasive positive pressure ventilation (2) Hiatal hernia with GERD Is this a current diagnosis for this admission?: Yes Plan: stable (3) Chronic atrial fibrillation Is this a current diagnosis for this admission?: Yes Plan: Appears to be stable at this time
--- NOTE | 2018-04-07 14:50 | PDOC PROGRESS REPORT ---
Subjective Progress Note for:: 04/04/18 Subjective:: Unchanged Reason For Visit: PNEUMONIA,MULTIPLE CO-MORBID CONDITIONS Physical Exam Vital Signs: Temp Pulse Resp BP Pulse Ox 98.8 F 74 12 145/52 H 94 04/07/18 11:22 04/07/18 14:15 04/07/18 14:15 04/07/18 11:22 04/07/18 14:15 Intake & Output 04/06/18 04/07/18 04/08/18 06:59 06:59 06:59 Intake Total 922 926 700 Output Total 1 Balance 922 926 699 Weight 56.9 kg 56 kg General appearance: PRESENT: no acute distress, disheveled Head exam: PRESENT: atraumatic, normocephalic Eye exam: PRESENT: conjunctiva pale. ABSENT: nystagmus, periorbital swelling, scleral icterus Mouth exam: PRESENT: dry mucosa, neck supple, tongue midline Teeth exam: PRESENT: poor dentation Neck exam: PRESENT: tracheostomy. ABSENT: carotid bruit, JVD, lymphadenopathy, thyromegaly, tracheal deviation Respiratory exam: PRESENT: decreased breath sounds, prolonged expiratory phas, rales, rhonchi, unlabored. ABSENT: retraction Cardiovascular exam: PRESENT: irregular rhythm Pulses: PRESENT: normal radial pulses GI/Abdominal exam: PRESENT: normal bowel sounds, soft Extremities exam: PRESENT: pedal edema. ABSENT: calf tenderness, clubbing, joint swelling Musculoskeletal exam: ABSENT: ambulatory, deformity, dislocation Neurological exam: PRESENT: awake, oriented to person, oriented to place Psychiatric exam: PRESENT: depressed, flat affect Focused psych exam: PRESENT: internal stimuli Skin exam: PRESENT: dry, warm Results Laboratory Results: 04/03/18 06:10 04/06/18 13:25 04/06/18 13:25 Creatinine 0.74 Est GFR ( Amer) > 60 Est GFR (Non-Af Amer) > 60 03/23/18 04/04/18 04/04/18 00:46 09:57 09:57 Creatine Kinase 30 34 CK-MB (CK-2) 1.20 Troponin I < 0.012 Impressions: Head CT 03/22/18 21:22 IMPRESSION: No acute intracranial hemorrhage or acute territorial infarct. Mild chronic changes of atrophy and microvascular ischemia. EVIDENCE OF ACUTE STROKE: NO. Interventional Vascular Procedure 03/31/18 00:00 IMPRESSION: SUCCESSFUL PLACEMENT OF A 5 FR DUAL LUMEN 30 CM PICC IN THE right basilic VEIN. PICC Line Insertion 03/31/18 00:00 IMPRESSION: SUCCESSFUL PLACEMENT OF A 5 FR DUAL LUMEN 30 CM PICC IN THE right basilic VEIN. Chest X-Ray 04/07/18 06:00 IMPRESSION: 1 Interval improvement in the appearance of the lungs, since the prior study dated 04/04/2018. Persistent airspace disease in the right lung and left base, have significantly decreased. 2. Small bilateral pleural effusions have almost resolved. Assessment & Plan - Diagnosis (1) Right lower lobe pneumonia Qualifiers: Pneumonia type: due to methicillin-resistant Staphylococcus aureus (MRSA) Qualified Code(s): J15.212 - Pneumonia due to Methicillin resistant Staphylococcus aureus Is this a current diagnosis for this admission?: Yes Plan: Per daughter plans to do thoracentesis in radiology under ultrasound guidance (2) Hiatal hernia with GERD Is this a current diagnosis for this admission?: Yes Plan: stable (3) Chronic atrial fibrillation Is this a current diagnosis for this admission?: Yes Plan: Appears to be stable at this time
--- NOTE | 2018-04-07 14:52 | PDOC PROGRESS REPORT ---
Subjective Progress Note for:: 04/04/18 Subjective:: Unchanged Reason For Visit: PNEUMONIA,MULTIPLE CO-MORBID CONDITIONS Physical Exam Vital Signs: Temp Pulse Resp BP Pulse Ox 98.8 F 74 12 145/52 H 94 04/07/18 11:22 04/07/18 14:15 04/07/18 14:15 04/07/18 11:22 04/07/18 14:15 Intake & Output 04/06/18 04/07/18 04/08/18 06:59 06:59 06:59 Intake Total 922 926 700 Output Total 1 Balance 922 926 699 Weight 56.9 kg 56 kg General appearance: PRESENT: no acute distress, disheveled. ABSENT: cooperative Head exam: PRESENT: atraumatic, normocephalic Eye exam: PRESENT: conjunctiva pale. ABSENT: nystagmus, periorbital swelling, scleral icterus Mouth exam: PRESENT: dry mucosa, neck supple, tongue midline Teeth exam: PRESENT: poor dentation Neck exam: PRESENT: tracheostomy. ABSENT: carotid bruit, JVD, lymphadenopathy, thyromegaly, tracheal deviation Respiratory exam: PRESENT: crackles, decreased breath sounds, prolonged expiratory phas, rhonchi, unlabored. ABSENT: retraction, stridor Cardiovascular exam: PRESENT: irregular rhythm Pulses: PRESENT: normal radial pulses GI/Abdominal exam: PRESENT: normal bowel sounds, soft Extremities exam: PRESENT: pedal edema. ABSENT: calf tenderness, clubbing, joint swelling Musculoskeletal exam: ABSENT: deformity, dislocation Neurological exam: PRESENT: awake. ABSENT: oriented to person, oriented to place, oriented to time, oriented to situation Skin exam: PRESENT: dry, warm Results Laboratory Results: 04/03/18 06:10 04/06/18 13:25 03/23/18 04/04/18 04/04/18 00:46 09:57 09:57 Creatine Kinase 30 34 CK-MB (CK-2) 1.20 Troponin I < 0.012 Impressions: Head CT 03/22/18 21:22 IMPRESSION: No acute intracranial hemorrhage or acute territorial infarct. Mild chronic changes of atrophy and microvascular ischemia. EVIDENCE OF ACUTE STROKE: NO. Interventional Vascular Procedure 03/31/18 00:00 IMPRESSION: SUCCESSFUL PLACEMENT OF A 5 FR DUAL LUMEN 30 CM PICC IN THE right basilic VEIN. PICC Line Insertion 03/31/18 00:00 IMPRESSION: SUCCESSFUL PLACEMENT OF A 5 FR DUAL LUMEN 30 CM PICC IN THE right basilic VEIN. Chest X-Ray 04/07/18 06:00 IMPRESSION: 1 Interval improvement in the appearance of the lungs, since the prior study dated 04/04/2018. Persistent airspace disease in the right lung and left base, have significantly decreased. 2. Small bilateral pleural effusions have almost resolved. Assessment & Plan - Diagnosis (1) Right lower lobe pneumonia Qualifiers: Pneumonia type: due to methicillin-resistant Staphylococcus aureus (MRSA) Qualified Code(s): J15.212 - Pneumonia due to Methicillin resistant Staphylococcus aureus Is this a current diagnosis for this admission?: Yes Plan: Unchanged (2) Hiatal hernia with GERD Is this a current diagnosis for this admission?: Yes Plan: stable (3) Chronic atrial fibrillation Is this a current diagnosis for this admission?: Yes Plan: Appears to be stable at this time
[2018-04-07 15:49] VITALS: BP 128/50
--- NOTE | 2018-04-08 03:41 | PROGRESS NOTE E ---
Progress Note NAME: JESSY PARKER : 1940 AGE: 77Y DATE: 04/07/2018 ROOM: 303 SUBJECTIVE: The patient remains in sinus rhythm. She denies any chest pain or discomfort. There is no PND, orthopnea, cough, or wheezing. There is no shortness of breath. There are no TIA or CVA symptoms. There is no bleeding on Eliquis. The patient has no anginal symptoms. There is no recurrence of junctional tachycardia or atrial fibrillation. There is no ventricular arrhythmia seen on the monitor. OBJECTIVE: GENERAL: On examination the patient is of frail build and appears to be chronically ill. Appears older than her stated age. VITAL SIGNS: She is afebrile with a temperature of 98.8 degrees Fahrenheit, pulse 83 beats per minute, blood pressure is 145/52, respirations are 17 per minute, O2 sat 100% on room air. HEENT: Head is atraumatic, normocephalic. Eyes: Pupils are equal, round and regular, reactive to light and accommodation. Extraocular movements are normal. There is no conjunctival pallor. There is no scleral icterus. ENT is negative. NECK: Supple. There is no JVD. There is no lymphadenopathy. There is no goiter. Carotids are equal. There is no bruit. There is no neck stiffness. Trachea is central. LUNGS: Show diminished air entry with prolonged expiration. There are no rhonchi, rales or wheezing. There is no chest wall tenderness. On percussion, there is hyperresonance. HEART: S1, S2 is heard. There is no S3 gallop. There is no S4 gallop. S1 is of normal intensity. There is a systolic murmur in the left sternal border and in the apex. There is no rub. ABDOMEN: Soft, nontender. There is no hepatosplenomegaly. Bowel sounds are well heard. There are no tender areas or masses. EXTREMITIES: Femorals are diminished. There are no femoral bruits. Leg pulses are diminished. There is no pedal edema. There is no cyanosis or clubbing. There is no DVT or cellulitis. There is no calf tenderness. CENTRAL NERVOUS SYSTEM: The patient is conscious, awake, alert and oriented x3 with no focal deficits. PSYCHIATRIC: The patient's judgment and insight are intact. Her affect is normal. DATA: The patient's chest x-ray shows much improved infiltrates in both the lung bases. There is no heart failure. The patient's glucose were 119 and 93. IMPRESSION: 1. JUNCTIONAL TACHYCARDIA CONVERTED TO SINUS RHYTHM. No recurrence of junctional tachycardia. 2. PAROXYSMAL ATRIAL FIBRILLATION. At present in sinus rhythm. 3. CHRONIC OBSTRUCTIVE PULMONARY DISEASE. Stable, no acute exacerbation of symptoms. 4. PNEUMONIA. Improved, almost resolved. Clinically, the patient has resolved from her pneumonia. 5. METHICILLIN-RESISTANT STAPHYLOCOCCUS AUREUS BACTEREMIA, POSSIBLE ENDOCARDITIS. Patient treated with antibiotics. There is no evidence of any valvular complication secondary to endocarditis. 6. DIASTOLIC HEART FAILURE. At present compensated. 7. UZMA DISEASE. The patient on steroids. 8. CORONARY ARTERY DISEASE. The patient without any anginal symptoms. 9. DIABETES MELLITUS TYPE 2, INSULIN DEPENDENT. Continue the patient's insulin and other antidiabetic medication. 10. HYPERTENSION. The patient's blood pressure is stable and much better controlled. The patient's Verapamil has been increased to 240 mg p.o. every 12 hours, along with the Multaq. The patient is also on Eliquis for her paroxysmal atrial fibrillation. 11. PRERENAL AZOTEMIA. Resolved. The patient's renal function is normal. RECOMMENDATIONS: The patient is being discharged. The daughter wants to discuss with Dr. Heller to see if Dr. Heller would like me to follow the patient as an outpatient. I have given them my phone number. Her medications have been reviewed. Medication changes have been discussed with the patient and patient's daughter. TIME SPENT: Medical decision-making is of moderate complexity at present. Note, 40 minutes spent on the patient with more than 50% of time spent in direct patient care. We will sign off the case and follow with the patient as an outpatient is the patient and daughter so decide to see me. Thanking you. DICTATING PHYSICIAN: SASHA OSULLIVAN M.D. [id number] PHY#: [id number] ID: [id number] JOB#: [id number] ACCT: [id number] cc: >
== END 2018-04-07 16:18 | disposition home health service (06) | DRG 871 ==
LOC: ER 20:58 → EH 23:22 → 3N 03-23 02:04
PROVIDERS: ADMIT Family Medicine; ATTEND Family Medicine
PROC: 3E0F73Z Introduction of Anti-inflammatory into Respiratory Tract, Via Natural or Artificial Opening (ICD-10-PCS; 2018-03-23)
PROC: 30233N1 Transfusion of Nonautologous Red Blood Cells into Peripheral Vein, Percutaneous Approach (ICD-10-PCS; 2018-03-27)
PROC: 02HV33Z Insertion of Infusion Device into Superior Vena Cava, Percutaneous Approach (ICD-10-PCS; principal; 2018-03-31)
PROC: B548ZZA Ultrasonography of Superior Vena Cava, Guidance (ICD-10-PCS; 2018-03-31)
DX: A41.02 Sepsis due to Methicillin resistant Staphylococcus aureus (principal); J15.212 Pneumonia due to Methicillin resistant Staphylococcus aureus; J96.21 Acute and chronic respiratory failure with hypoxia; I50.33 Acute on chronic diastolic (congestive) heart failure; I33.9 Acute and subacute endocarditis, unspecified; E27.1 Primary adrenocortical insufficiency; J44.0 Chronic obstructive pulmonary disease with (acute) lower respiratory infection; I47.1 Supraventricular tachycardia; I13.0 Hypertensive heart and chronic kidney disease with heart failure and stage 1 through stage 4 chronic kidney disease, or unspecified chronic kidney disease; E87.0 Hyperosmolality and hypernatremia; Z66 Do not resuscitate; D64.9 Anemia, unspecified; I48.2 Chronic atrial fibrillation; E88.09 Other disorders of plasma-protein metabolism, not elsewhere classified; N18.9 Chronic kidney disease, unspecified; I25.10 Atherosclerotic heart disease of native coronary artery without angina pectoris; E11.22 Type 2 diabetes mellitus with diabetic chronic kidney disease; K44.9 Diaphragmatic hernia without obstruction or gangrene; E78.00 Pure hypercholesterolemia, unspecified; G47.30 Sleep apnea, unspecified; E66.9 Obesity, unspecified; K21.9 Gastro-esophageal reflux disease without esophagitis; M19.90 Unspecified osteoarthritis, unspecified site; F32.9 Major depressive disorder, single episode, unspecified; D63.1 Anemia in chronic kidney disease; E87.6 Hypokalemia; Z79.4 Long term (current) use of insulin; Z79.899 Other long term (current) drug therapy; Z79.01 Long term (current) use of anticoagulants; Z88.2 Allergy status to sulfonamides; Z88.8 Allergy status to other drugs, medicaments and biological substances; Z88.6 Allergy status to analgesic agent; Z88.0 Allergy status to penicillin; Z91.013 Allergy to seafood; Z90.49 Acquired absence of other specified parts of digestive tract; Z87.891 Personal history of nicotine dependence; Z99.81 Dependence on supplemental oxygen; Z79.52 Long term (current) use of systemic steroids; Z82.49 Family history of ischemic heart disease and other diseases of the circulatory system
CPT/HCPCS: 36415; 36430; 36569; 36600; 51701; 70450; 71045; 71250; 76937; 80048; 80053; 80202; 81001; 82550; 82553; 82565; 82803; 82962; 83036; 83605; 83735; 83880; 84443; 84484; 85025; 85610; 85652; 85730; 86140; 86850; 86900; 86901; 86920; 87040; 87070; 87077; 87086; 87186; 87205; 93005; 93010; 93306; 94010; 94150; 94640; 94660; 94667; 94668; 99285; J0153; J1642; J1720; J1815; J1940; J1956; J3370; J3490; J7030; J7060; J7512; J7614; J7620; P9016

== ENCOUNTER → 2018-04-23 | Outpatient (CLI) | payer MEDICARE, OTHER ==
[2018-04-23 09:50] LABS: HEMATOCRIT 29.9 % (36.0-47.0); HEMOGLOBIN 9.6 g/dL (12.0-15.5); MEAN CORPUSCULAR HEMOGLOBIN 27.1 pg (27.0-33.4); MEAN CORPUSCULAR VOLUME 85 fl (80-97); PLATELET COUNT 297 10^3/uL (150-450); RED BLOOD COUNT 3.53 10^6/uL (3.72-5.28); RED CELL DISTRIBUTION WIDTH 17.3 % (11.5-14.0); WHITE BLOOD COUNT 11.5 10^3/uL (4.0-10.5)
[2018-04-23 09:55] LABS: APPEARANCE,URINE CLEAR; BILIRUBIN,URINE NEGATIVE (NEGATIVE); COLOR,URINE STRAW; GLUCOSE, URINE 150 mg/dL (NEGATIVE); KETONES,URINE NEGATIVE (NEGATIVE); LEUKOCYTE ESTERASE,URINE SMALL (NEGATIVE); NITRITE,URINE NEGATIVE (NEGATIVE); PROTEIN,URINE NEGATIVE (NEGATIVE); URINE SPECIFIC GRAVITY 1.008; UROBILINOGEN,URINE NEGATIVE mg/dL (<2.0)
--- NOTE | 2018-04-23 10:05 | RADIOLOGY REPORT (SQ) ---
EXAM DESCRIPTION: CHEST PA/LATERAL COMPLETED DATE/TIME: 04/23/2018 9:52 am REASON FOR STUDY: DYSPNEA COMPARISON: CT chest 03/23/2018 Chest films 03/31/2018, 04/04/2018, 04/07/2018 EXAM PARAMETERS: NUMBER OF VIEWS: two views TECHNIQUE: Digital Frontal and Lateral radiographic views of the chest acquired. RADIATION DOSE: NA LIMITATIONS: none FINDINGS: LUNGS AND PLEURA: No opacities, masses or pneumothorax. No pleural effusion. MEDIASTINUM AND HILAR STRUCTURES: Large retrocardiac hiatal hernia containing the stomach fundus. To rtuous uncoiled thoracic aorta. HEART AND VASCULAR STRUCTURES: No cardiomegaly BONES: Osteoporotic with mid thoracic compression deformities unchanged from CT 03/23/2018. HARDWARE: Right PICC line tip superior vena cava OTHER: No other significant finding. IMPRESSION: No focal infiltrates. TECHNICAL DOCUMENTATION: JOB ID: [id number] [employer]- All Rights Reserved Reading location - IP/workstation name: [email or web address]
[2018-04-23 10:15] LABS: ANION GAP 15 (5-19); BLOOD UREA NITROGEN 41 mg/dL (7-20); CARBON DIOXIDE 26 mmol/L (22-30); CHLORIDE 103 mmol/L (98-107); GLUCOSE 303 mg/dL (75-110); POTASSIUM 4.2 mmol/L (3.6-5.0); SODIUM 143.7 mmol/L (137-145)
[2018-04-23 14:35] LABS: IRON(TIBC) 58.4 ug/dL (37-170)
== END ==
LOC: OD 09:11
PROVIDERS: ATTEND Physician Assistant Medical
DX: D64.9 Anemia, unspecified (principal); N18.3 Chronic kidney disease, stage 3 (moderate); E87.6 Hypokalemia; I50.9 Heart failure, unspecified; R06.00 Dyspnea, unspecified
CPT/HCPCS: 36415; 71046; 80048; 81001; 82728; 83540; 83550; 85027

== ENCOUNTER 2018-05-24 11:21 | Emergency (ER) | payer MEDICARE, OTHER ==
--- NOTE | 2018-05-24 11:41 | ER Document Report ---
ED Medical Screen (RME) - General Chief Complaint: Rib Pain Stated Complaint: RIGHT SIDE PAIN, SWELLING Time Seen by Provider: 05/24/18 11:36 Mode of Arrival: Ambulatory Information source: Patient, Relative TRAVEL OUTSIDE OF THE [place] IN LAST 30 DAYS: No - HPI Patient complains to provider of: bruise to R ribs Onset: Yesterday - pt. states she leaned against wall and has developed a bruise to her R rib area. Denies trauma - Related Data Allergies/Adverse Reactions: aspirin [Aspirin] Allergy (Verified 05/24/18 11:21) colchicine Allergy (Verified 05/24/18 11:21) iodine Allergy (Verified 05/24/18 11:21) Penicillins Allergy (Verified 05/24/18 11:21) Hives shellfish derived Allergy (Verified 05/24/18 11:21) Past Medical History - Past Medical History Cardiac Medical History: Reports: Hx Atrial Fibrillation, Hx Congestive Heart Failure, Hx Coronary Artery Disease, Hx Hypercholesterolemia, Hx Hypertension Pulmonary Medical History: Reports: Hx Asthma, Hx Bronchitis, Hx Pneumonia, Hx Sleep Apnea Neurological Medical History: Denies: Hx Migraine, Hx Seizures Endocrine Medical History: Reports: Hx Diabetes Mellitus Type 2 Renal/ Medical History: Denies: Hx End Stage Renal Disease, Hx Peritoneal Dialysis GI Medical History: Reports: Hx Gastroesophageal Reflux Disease, Hx Hiatal Hernia - Large, with intrathoracic stomach., Hx Ulcerative Colitis Musculoskeltal Medical History: Reports Hx Arthritis Skin Medical History: Denies Hx Psoriasis Psychiatric Medical History: Reports: Hx Depression Traumatic Medical History: Denies: Hx Traumatic Brain Injury Infectious Medical History: Reports: Hx MRSA Past Surgical History: Reports: Hx Abdominal Surgery - colon resection, Hx Appendectomy, Other - History of right hemicolectomy, questionable history of ulcerative colitis. - Immunizations History of Influenza Vaccine for 07/2017 - 12/2017 Season: Yes Influenza Administration Date for 07/2017 - 12/2017 Season: 07/14/17 Physical Exam - Vital signs Vitals: Temp Pulse Resp BP Pulse Ox 97.5 F 79 16 141/53 H 98 05/24/18 11:26 05/24/18 11:26 05/24/18 11:26 05/24/18 11:26 05/24/18 11:26 Course - Vital Signs Vital signs: Temp Pulse Resp BP Pulse Ox 97.5 F 79 16 141/53 H 98 05/24/18 11:26 05/24/18 11:26 05/24/18 11:26 05/24/18 11:26 05/24/18 11:26 Doctor's Discharge - Discharge Referrals: EVANGELINA FRANCO, JUAN JOSEC [Primary Care Provider] - Follow up as needed
[2018-05-24] MEDS ORDERED: HYDROCODONE/ACETAMINOPHEN 5-325 MG TABLET PO ONE (12:49)
[2018-05-24 12:51] LABS: HEMATOCRIT 28.8 % (36.0-47.0); HEMOGLOBIN 9.4 g/dL (12.0-15.5); MEAN CORPUSCULAR HEMOGLOBIN 27.5 pg (27.0-33.4); MEAN CORPUSCULAR HGB CONC 32.7 g/dL (32.0-36.0); MEAN CORPUSCULAR VOLUME 84 fl (80-97); PLATELET COUNT 298 10^3/uL (150-450); RED BLOOD COUNT 3.43 10^6/uL (3.72-5.28); RED CELL DISTRIBUTION WIDTH 17.5 % (11.5-14.0); WHITE BLOOD COUNT 10.9 10^3/uL (4.0-10.5)
--- NOTE | 2018-05-24 12:52 | ER Document Report ---
ED General - General Chief Complaint: Rib Pain Stated Complaint: RIGHT SIDE PAIN, SWELLING Time Seen by Provider: 05/24/18 11:36 Mode of Arrival: Ambulatory Information source: Patient, Relative, [facility] Records Notes: 77-year-old female with atrial fibrillation (on Eliquis), congestive heart failure, coronary artery disease, hyperlipidemia, hypertension, type 2 diabetes presents with complaint of right sided rib pain and bruising. Patient states that she has experienced some right-sided back soreness for a few days but denies any injury, fall. She states that she awoke this morning to significant bruising and increased pain. She denies prior similar symptoms, recent illness , shortness of breath, chest pain. TRAVEL OUTSIDE OF THE [place] IN LAST 30 DAYS: No - HPI Onset: This morning Onset/Duration: Sudden Quality of pain: Achy, Throbbing Severity: Mild Associated symptoms: Body/muscle aches. denies: Chest pain, Nonproductive cough , Productive cough, Fever, Hoarseness, Nausea, Vomiting, Shortness of breath, Sweating, Weakness Exacerbated by: Movement Relieved by: Remaining still Similar symptoms previously: No Recently seen / treated by doctor: No - Related Data Allergies/Adverse Reactions: aspirin [Aspirin] Allergy (Verified 05/24/18 11:44) colchicine Allergy (Verified 05/24/18 11:44) iodine Allergy (Verified 05/24/18 11:44) Penicillins Allergy (Verified 05/24/18 11:44) Hives shellfish derived Allergy (Verified 05/24/18 11:44) Past Medical History - General Information source: Patient, Relative - Social History Smoking Status: Former Smoker Chew tobacco use (# tins/day): No Frequency of alcohol use: None Drug Abuse: None Lives with: Family Family History: CAD, Hyperlipidemia, Hypertension Patient has suicidal ideation: No Patient has homicidal ideation: No - Past Medical History Cardiac Medical History: Reports: Hx Atrial Fibrillation, Hx Congestive Heart Failure, Hx Coronary Artery Disease, Hx Hypercholesterolemia, Hx Hypertension Pulmonary Medical History: Reports: Hx Asthma, Hx Bronchitis, Hx Pneumonia, Hx Sleep Apnea Neurological Medical History: Denies: Hx Migraine, Hx Seizures Endocrine Medical History: Reports: Hx Diabetes Mellitus Type 2 Renal/ Medical History: Denies: Hx End Stage Renal Disease, Hx Peritoneal Dialysis GI Medical History: Reports: Hx Gastroesophageal Reflux Disease, Hx Hiatal Hernia - Large, with intrathoracic stomach., Hx Ulcerative Colitis Musculoskeletal Medical History: Reports Hx Arthritis Skin Medical History: Denies Hx Psoriasis Psychiatric Medical History: Reports: Hx Depression Traumatic Medical History: Denies: Hx Traumatic Brain Injury Infectious Medical History: Reports: Hx MRSA Past Surgical History: Reports: Hx Abdominal Surgery - colon resection, Hx Appendectomy, Hx Bowel Surgery - colon surgery, Hx Hysterectomy, Other - History of right hemicolectomy, questionable history of ulcerative colitis. Review of Systems - Review of Systems Notes: REVIEW OF SYSTEMS: CONSTITUTIONAL : Denies fever, chills, or sweats. Denies recent illness. Denies weight loss, recent hospitalizations. EENT: Denies visual changes, eye pain. Denies nasal or sinus congestion or discharge. Denies sore throat, oral lesions, difficulty swallowing. CARDIOVASCULAR: Denies chest pain. Denies palpitations. Denies lower extremity edema. RESPIRATORY: Denies cough, cold, or chest congestion. Denies shortness of breath, wheezing. GASTROINTESTINAL: Denies abdominal pain or distention. Denies nausea, vomiting , or diarrhea. Denies blood in vomitus, stools, or per rectum. Denies black, tarry stools. Denies constipation. GENITOURINARY: Denies difficulty urinating, painful urination, frequency, blood in urine, or vaginal discharge. MUSCULOSKELETAL: Denies back or neck pain or stiffness. Denies joint pain or swelling. SKIN: HEMATOLOGIC : Denies easy bruising or bleeding. LYMPHATIC: Denies swollen glands. NEUROLOGICAL: Denies confusion or altered mental status. Denies passing out or loss of consciousness. Denies dizziness or lightheadedness. Denies headache. Denies weakness or paralysis. Denies problems difficulty with ambulation, slurred speech. Denies sensory loss, numbness, or tingling. Denies seizures. PSYCHIATRIC: Denies anxiety or stress. Denies depression, suicidal ideation, or homicidal ideation. Denies visual or auditory hallucinations. Physical Exam - Vital signs Vitals: Temp Pulse Resp BP Pulse Ox 97.5 F 79 16 141/53 H 98 05/24/18 11:26 05/24/18 11:26 05/24/18 11:26 05/24/18 11:26 05/24/18 11:26 - Notes Notes: PHYSICAL EXAMINATION: GENERAL: Well-appearing, well-nourished and in no acute distress. HEAD: Atraumatic, normocephalic. EYES: Pupils equal round and reactive to light, extraocular movements intact, conjunctiva are normal. ENT: Nares patent, oropharynx clear without exudates. Moist mucous membranes. NECK: Normal range of motion, supple without lymphadenopathy LUNGS: Breath sounds clear to auscultation bilaterally and equal. No wheezes rales or rhonchi. HEART: Regular rate and rhythm without murmurs ABDOMEN: Soft, nontender, nondistended abdomen. No guarding, no rebound. No masses appreciated. Female : deferred Musculoskeletal: Normal range of motion, no pitting or edema. No cyanosis. NEUROLOGICAL: Cranial nerves grossly intact. Normal speech, normal gait. Normal sensory, motor exams PSYCH: Normal mood, normal affect. SKIN: Large area of ecchymosis along the right breast and right mid axillary area with extension to right mid back. No crepitus. Nontender with palpation Course - Re-evaluation Re-evalutation: 05/24/18 13:43 Laboratory 05/24/18 05/24/18 11:55 11:55 WBC 10.9 H RBC 3.43 L Hgb 9.4 L Hct 28.8 L MCV 84 MCH 27.5 MCHC 32.7 RDW 17.5 H Plt Count 298 Total Counted 100 Seg Neutrophils % Not Reportable Seg Neuts % (Manual) 86 H Lymphocytes % Not Reportable Lymphocytes % (Manual) 14 Monocytes % Not Reportable Monocytes % (Manual) 0 L Eosinophils % Not Reportable Eosinophils % (Manual) 0 Basophils % Not Reportable Basophils % (Manual) 0 Absolute Neutrophils Not Reportable Abs Neuts (Manual) 9.4 H Absolute Lymphocytes Not Reportable Abs Lymphs (Manual) 1.5 Absolute Monocytes Not Reportable Abs Monocytes (Manual) 0.0 L Absolute Eosinophils Not Reportable Absolute Eos (Manual) 0.0 Absolute Basophils Not Reportable Abs Basophils (Manual) 0.0 Platelet Comment ADEQUATE Polychromasia SLIGHT Poikilocytosis 1+ Anisocytosis 1+ Tear Drop Cells SLIGHT Ovalocytes 1+ Sodium 149.2 H Potassium 4.4 Chloride 112 H Carbon Dioxide 21 L Anion Gap 16 BUN 62 H Creatinine 1.38 H Est GFR ( Amer) 45 L Est GFR (Non-Af Amer) 37 L Glucose 71 L Calcium 9.5 Total Bilirubin 0.4 Direct Bilirubin 0.4 Neonat Total Bilirubin Not Reportable Neonat Direct Bilirubin Not Reportable Neonat Indirect Bili Not Reportable AST 26 ALT 27 Alkaline Phosphatase 45 Total Protein 6.3 Albumin 3.7 Ribs w/Chest X-Ray 05/24/18 11:37 IMPRESSION: NO PNEUMOTHORAX. NO DISPLACED RIB FRACTURES. 05/25/18 09:45 77-year-old female with atrial fibrillation (on Eliquis), congestive heart failure, coronary artery disease, hyperlipidemia, hypertension, type 2 diabetes presents with complaint of right sided rib pain and bruising. Patient states that she has experienced some right-sided back soreness for a few days but denies any injury, fall. She states that she awoke this morning to significant bruising and increased pain. She denies prior similar symptoms, recent illness , shortness of breath, chest pain. Patient was seen by myself upon arrival. Vital signs were reviewed. Patient is afebrile, normotensive and not hypoxic. Patient does not appear toxic or dehydrated. They are in no acute distress. Previous medical records and nursing notes reviewed. Significant findings include an extensive bruise along the right breast, right mid axillary line and right mid back. X-rays were obtained and showed no pneumothorax or rib fractures. The patient's primary care physician happened to be in the emergency department and saw the patient. He believes that this is secondary to Eliquis use. He will see the patient in the office and has no further recommendations at this time. Patient provided the opportunity to ask questions , and express concerns. Discharge instructions discussed. Patient is agreeable with discharge home. Return indications explained and discussed with the patient who displays understanding. Patient encouraged to return to the emergency department immediately with any concerns. 05/25/18 09:46 - Vital Signs Vital signs: Temp Pulse Resp BP Pulse Ox 97.5 F 84 16 150/55 H 98 05/24/18 11:26 05/24/18 14:17 05/24/18 11:26 05/24/18 14:17 05/24/18 11:26 - Laboratory Result Diagrams: 05/24/18 11:55 05/24/18 11:55 Laboratory results interpreted by me: 05/24/18 05/24/18 11:55 11:55 WBC 10.9 H RBC 3.43 L Hgb 9.4 L Hct 28.8 L RDW 17.5 H Seg Neuts % (Manual) 86 H Monocytes % (Manual) 0 L Abs Neuts (Manual) 9.4 H Abs Monocytes (Manual) 0.0 L Sodium 149.2 H Chloride 112 H Carbon Dioxide 21 L BUN 62 H Creatinine 1.38 H Est GFR ( Amer) 45 L Est GFR (Non-Af Amer) 37 L Glucose 71 L - Diagnostic Test Radiology reviewed: Image reviewed, Reports reviewed Discharge - Discharge Clinical Impression: Bruising, spontaneous, Chronic atrial fibrillation, Medication side effect Condition: Good Disposition: HOME, SELF-CARE Instructions: Contusion ([facility]) Additional Instructions: Please ice and ice the area of bruising. Please follow-up with your primary care physician as needed Forms: Elevated Blood Pressure Referrals: EVANGELINA FRANCO PA-C [ALLIED HEALTH PROFESSIONAL] - Follow up as needed
[2018-05-24 13:09] LABS: ABSOLUTE LYMPHOCYTES# (MANUAL) 1.5 10^3/uL (0.5-4.7); ABSOLUTE NEUTROPHILS# (MANUAL) 9.4 10^3/uL (1.7-8.2); BASOPHILS % (MANUAL) 0 % (0-2); EOSINOPHILS % (MANUAL) 0 % (0-6); LYMPHOCYTES % (MANUAL) 14 % (13-45); MONOCYTES % (MANUAL) 0 % (3-13); SEGMENTED NEUTROPHILS % (MAN) 86 % (42-78); TOTAL CELLS COUNTED 100
[2018-05-24 13:11] LABS: ANISOCYTOSIS 1+; OVALOCYTES 1+; PLATELET COMMENT ADEQUATE; POIKILOCYTOSIS 1+; POLYCHROMASIA SLIGHT; TEAR DROP CELLS SLIGHT
[2018-05-24 13:31] LABS: ALANINE AMINOTRANSFERASE 27 U/L (9-52); ALBUMIN 3.7 g/dL (3.5-5.0); ALKALINE PHOSPHATASE 45 U/L (38-126); ANION GAP 16 (5-19); ASPARTATE AMINO TRANSFERASE 26 U/L (14-36); BILIRUBIN,DIRECT 0.4 mg/dL (0.0-0.4); BILIRUBIN,TOTAL 0.4 mg/dL (0.2-1.3); BLOOD UREA NITROGEN 62 mg/dL (7-20); CALCIUM 9.5 mg/dL (8.4-10.2); CARBON DIOXIDE 21 mmol/L (22-30); CHLORIDE 112 mmol/L (98-107); GLUCOSE 71 mg/dL (75-110); POTASSIUM 4.4 mmol/L (3.6-5.0); SODIUM 149.2 mmol/L (137-145); TOTAL PROTEIN 6.3 g/dL (6.3-8.2)
--- NOTE | 2018-05-24 13:37 | RADIOLOGY REPORT (SQ) ---
EXAM DESCRIPTION: RIBS RIGHT W/PA CHEST COMPLETED DATE/TIME: 05/24/2018 1:12 pm REASON FOR STUDY: trauma COMPARISON: None. TECHNIQUE: Frontal view of the chest and additional views of the right ribs acquired. NUMBER OF VIEWS: Three view. LIMITATIONS: None. FINDINGS: FRONTAL CXR: No pneumothorax. No pleural effusion. No atelectasis or infiltrates. RIBS: No displaced rib fractures. No lytic or blastic bony lesions. OTHER: Large hiatal hernia. IMPRESSION: NO PNEUMOTHORAX. NO DISPLACED RIB FRACTURES. COMMENT: SITE OF TRAUMA/COMPLAINT MARKED/STAMP COMPLETED: NO. TECHNICAL DOCUMENTATION: JOB ID: [id number] [employer]- All Rights Reserved Reading location - IP/workstation name: [email or web address]
[2018-05-24 14:18] VITALS: BP 150/55
== END 2018-05-24 14:22 | disposition home or self-care (01) ==
LOC: ER 11:21
DX: R23.3 Spontaneous ecchymoses (principal); Z79.02 Long term (current) use of antithrombotics/antiplatelets; I48.2 Chronic atrial fibrillation; R07.89 Other chest pain; M79.1 Myalgia; I11.0 Hypertensive heart disease with heart failure; I50.9 Heart failure, unspecified; E11.9 Type 2 diabetes mellitus without complications; Z88.6 Allergy status to analgesic agent; Z88.0 Allergy status to penicillin; Z86.14 Personal history of Methicillin resistant Staphylococcus aureus infection
CPT/HCPCS: 36415; 80053; 82962; 85025; 99284

== ENCOUNTER 2018-05-29 22:10 | Emergency (ER) | payer MEDICARE, OTHER ==
[2018-05-30] MEDS ORDERED: DOXYCYCLINE HYCLATE 100 MG TABLET PO ONE (01:10)
--- NOTE | 2018-05-30 01:15 | ER Document Report ---
ED General - General Chief Complaint: Laceration Stated Complaint: ARM LACERATION Time Seen by Provider: 05/29/18 23:28 Notes: Patient is a 77-year-old female who presents with a skin avulsion her left forearm which she states that she sustained after trying to breakup a fight between her two dogs. The patient states that this happened when apparently one of their his nails scratched her arm. She denies being bitten. She notes a dull, throbbing, constant pain to the area since that time. Nothing improves or worsens the pain. She denies any history of similar injuries. She states that she is up-to-date on her tetanus immunization that the dog is a fully immunized. She has noted some moderate bleeding to the area that has been controlled with direct pressure. She has not contacted her general doctor regarding today's concerns. She denies any additional injuries or concerns. TRAVEL OUTSIDE OF THE [place] IN LAST 30 DAYS: No - Related Data Allergies/Adverse Reactions: aspirin [Aspirin] Allergy (Verified 05/24/18 11:44) colchicine Allergy (Verified 05/24/18 11:44) iodine Allergy (Verified 05/24/18 11:44) Penicillins Allergy (Verified 05/24/18 11:44) Hives shellfish derived Allergy (Verified 05/24/18 11:44) Past Medical History - General Information source: Patient, Relative - Social History Smoking Status: Never Smoker Frequency of alcohol use: None Drug Abuse: None Lives with: Family Family History: CAD, Hyperlipidemia, Hypertension Patient has suicidal ideation: No Patient has homicidal ideation: No - Past Medical History Cardiac Medical History: Reports: Hx Atrial Fibrillation, Hx Congestive Heart Failure, Hx Coronary Artery Disease, Hx Hypercholesterolemia, Hx Hypertension Pulmonary Medical History: Reports: Hx Asthma, Hx Bronchitis, Hx Pneumonia, Hx Sleep Apnea Neurological Medical History: Denies: Hx Migraine, Hx Seizures Endocrine Medical History: Reports: Hx Diabetes Mellitus Type 2 Renal/ Medical History: Denies: Hx End Stage Renal Disease, Hx Peritoneal Dialysis GI Medical History: Reports: Hx Gastroesophageal Reflux Disease, Hx Hiatal Hernia - Large, with intrathoracic stomach., Hx Ulcerative Colitis Musculoskeletal Medical History: Reports Hx Arthritis Skin Medical History: Denies Hx Psoriasis Psychiatric Medical History: Reports: Hx Depression Traumatic Medical History: Denies: Hx Traumatic Brain Injury Infectious Medical History: Reports: Hx MRSA Past Surgical History: Reports: Hx Abdominal Surgery - colon resection, Hx Appendectomy, Hx Bowel Surgery - colon surgery, Hx Hysterectomy, Other - History of right hemicolectomy, questionable history of ulcerative colitis. Review of Systems - Review of Systems Notes: Constitutional: Negative for fever. Eyes: Negative for visual changes. ENT: Negative for facial injury Cardiovascular: Negative for chest injury. Respiratory: Negative for shortness of breath. Gastrointestinal: Negative for abdominal injury. Genitourinary: Negative for genital injury Musculoskeletal: Negative for back injury. Skin: Positive for laceration/abrasions. Neurological: Negative for head injury. Physical Exam - Vital signs Vitals: Temp Pulse Resp BP Pulse Ox 98.4 F 78 18 110/44 L 91 L 05/29/18 22:19 05/29/18 22:19 05/29/18 22:19 05/29/18 22:19 05/29/18 22:19 Interpretation: Hypoxic - Initial hypoxic reading is not accurate Notes: PHYSICAL EXAMINATION: GENERAL: Well-appearing, well-nourished and in no acute distress. HEAD: Atraumatic, normocephalic. EYES: sclera anicteric, conjunctiva are normal. ENT: Moist mucous membranes. NECK: Normal range of motion LUNGS: Normal work of breathing HEART: 2+ radial pulses bilaterally EXTREMITIES: no pitting or edema. No cyanosis. NEUROLOGICAL: No focal neurological deficits. Moves all extremities spontaneously and on command. RMU motor and sensory distribution is intact bilaterally. PSYCH: Normal mood, normal affect. SKIN: Warm, Dry, normal turgor, there is a skin flap skin avulsion on the left central forearm with exposure of the subcutaneous tissues. Course - Re-evaluation Re-evalutation: 05/30/18 01:19 Patient presents with a skin tear on her left central forearm after apparently being scratched by her dog. She denies being bitten to the area however her granddaughter reports that she cannot be certain that the patient herself is not a reliable historian. Will therefore not repair primarily but will Place Steri-Strips and begin antibiotic prophylaxis. Her tetanus is already up-to- date. The dog is a fully immunized. I do not see out any obvious puncture areas. Wound is been cleaned and dressed. At this time will discharge with return precautions and follow-up recommendations. Verbal discharge instructions given a the bedside and opportunity for questions given. Medication warnings reviewed. Patient is in agreement with this plan and has verbalized understanding of return precautions and the need for primary care follow-up in the next 24-72 hours. - Vital Signs Vital signs: Temp Pulse Resp BP Pulse Ox 98.6 F 78 20 160/67 H 97 05/30/18 01:46 05/29/18 22:19 05/30/18 01:46 05/30/18 01:46 05/30/18 01:46 Discharge - Discharge Clinical Impression: Skin tear Laceration of left upper arm Qualifiers: Encounter type: initial encounter Qualified Code(s): S41.112A - Laceration without foreign body of left upper arm, initial encounter Condition: Good Disposition: HOME, SELF-CARE Additional Instructions: Return immediately if you develop spreading redness around the wound, pus from the wound, worsening pain, or a fever of >100.4. Keep the area clean and dry. Wash gently with soap and water twice daily and cover with antibiotic ointment. Referrals: KEILY CHRISTIANSON MD [Primary Care Provider] - Follow up as needed
[2018-05-30 01:48] VITALS: BP 160/67
== END 2018-05-30 01:48 | disposition home or self-care (01) ==
LOC: ER 22:10
DX: S41.112A Laceration without foreign body of left upper arm, initial encounter (principal); W54.1XXA Struck by dog, initial encounter; Y92.009 Unspecified place in unspecified non-institutional (private) residence as the place of occurrence of the external cause; Z88.6 Allergy status to analgesic agent; Z88.0 Allergy status to penicillin; Z91.013 Allergy to seafood; I48.91 Unspecified atrial fibrillation; I50.9 Heart failure, unspecified; I10 Essential (primary) hypertension; E11.9 Type 2 diabetes mellitus without complications; Z86.14 Personal history of Methicillin resistant Staphylococcus aureus infection; Z90.710 Acquired absence of both cervix and uterus
CPT/HCPCS: 99283; A9270

== ENCOUNTER → 2018-07-05 | Outpatient (CLI) | payer MEDICARE, OTHER ==
--- NOTE | 2018-07-05 11:45 | RADIOLOGY REPORT (SQ) ---
EXAM DESCRIPTION: CT CHEST WITHOUT COMPLETED DATE/TIME: 07/05/2018 10:23 am REASON FOR STUDY: PULMONARY NODULE R91.1 SOLITARY PULMONARY NODULE COMPARISON: PET-CT 02/16/2018 CT chest 07/24/2015, 11/22/2017, 03/23/2018 TECHNIQUE: CT scan performed of the chest without intravenous contrast. Images reviewed with lung, soft tissue and bone windows. Reconstructed coronal and sagittal MPR images reviewed. All images st ored on PACS. All CT scanners at this facility use dose modulation, iterative reconstruction, and/or weight based d osing when appropriate to reduce radiation dose to as low as reasonably achievable (ALARA). [facility]: Dose Right [facility]: CareDose [facility]: Dose Right [facility]: Teradose 4D [facility]: [employer] RADIATION DOSE: CT Rad equipment meets quality standard of care and radiation dose reduction techniq ues were employed. CTDIvol: 5.8 mGy. DLP: 179 mGy-cm. mGy. LIMITATIONS: No technical limitations. FINDINGS: LUNGS AND PLEURA: Minimal patchy airspace disease at the right lung apex, posterior right upper lobe near the major fissure, bilateral superior segments lower lobes, question multifocal pneum onia. There is bandlike consolidation at both lung bases, likely bandlike scarring. No pleural effusion. No pneumothorax. HILAR AND MEDIASTINAL STRUCTURES: There is a huge retrocardiac hiatal hernia containing the stomach f undus and body. Air-fluid level in the esophagus at the level of the aortic arch, findings are worri some for gastroesophageal reflux and aspiration. HEART AND VASCULAR STRUCTURES: No aneurysm. No pericardial effusion. Heavy calcification of the aristides ral annulus. Minimal coronary artery calcification UPPER ABDOMEN: No significant findings. Limited exam. THYROID AND OTHER SOFT TISSUES: No masses. No adenopathy. BONES: Right posterior subacute 5th and 6th rib fractures HARDWARE: None in the chest. OTHER: No other significant findings. IMPRESSION: Patchy airspace disease worrisome for aspiration pneumonia Large retrocardiac hiatal hernia containing the majority of the stomach Subacute right posterior 5th and 6th rib fractures TECHNICAL DOCUMENTATION: JOB ID: [id number] Quality ID # [id number]: Final reports with documentation of one or more dose reduction techniques (e.g., Au tomated exposure control, adjustment of the mA and/or kV according to patient size, use of iterative reconstruction technique) 2010 [employer]- All Rights Reserved Reading location - IP/workstation name: [email or web address]
== END ==
LOC: RAD 10:04
PROVIDERS: ATTEND Physician Assistant
DX: R91.1 Solitary pulmonary nodule (principal); K44.9 Diaphragmatic hernia without obstruction or gangrene
CPT/HCPCS: 71250

== ENCOUNTER 2018-07-24 12:18 | Emergency (ER) | payer MEDICARE, OTHER ==
[2018-07-24] MEDS ORDERED: IPRATROPIUM BROMIDE 0.02% NEB 0.5 MG/2.5 ML AMPUL NEB ONE (12:44)
[2018-07-24] MEDS ORDERED: METHYLPREDNISOLONE INJ 125 MG/2 ML SDV IV ONE (12:44)
[2018-07-24] MEDS ORDERED: LEVALBUTEROL HCL NEB 1.25 MG/3 ML AMPUL NEB ONE (12:44)
--- NOTE | 2018-07-24 12:52 | ER Document Report ---
ED Medical Screen (RME) - General Mode of Arrival: Wheelchair Information source: Patient, Relative TRAVEL OUTSIDE OF THE [place] IN LAST 30 DAYS: No - General Chief Complaint: Shortness Of Breath Stated Complaint: DIFFICULTY BREATHING Time Seen by Provider: 07/24/18 12:36 Notes: Patient is a 77 year old female with asthma, bronchiectasis and recurrent pneumonia presents to the emergency department accompanied by daughter complaining of trouble breathing onset this morning and chest pain. Daughter states the patient told her she was having increased difficulty breathing around noon today but began to have difficulty breathing last night. She also states she has sternal chest pain described as a pressure but attributes this to her arthritis. Patient also complains of a productive cough with yellow and clear sputum. Patient denies any fevers. Patient mentions some rib pain due to 2 rib fractures on the left but states this has been getting better. Daughter states the patient currently takes levalbuterol and prednisone 20 mg daily. Patient's PCP is Dr. Heller and she follows up with Dr. Patino. GENERAL: Alert, interacts well. No acute distress. HEAD: Normocephalic, Atraumatic. NECK: Full range of motion. Supple. Trachea midline. LUNGS:Appears short of breath. Tachypneic. Inspiratory rales, expiratory rhonchi. Auto peep. Wet cough. HEART: Regular rate and rhythm. No murmurs, gallops, or rubs. EXTREMITIES: Moves all four extremities spontaneously. PSYCH: Normal affect, normal mood. I have greeted and performed a rapid initial assessment of this patient. A comprehensive ED assessment and evaluation of the patient, analysis of test results and completion of the medical decision making process will be conducted by additional ED providers. (LONNY SMALL) - Related Data Allergies/Adverse Reactions: aspirin [Aspirin] Allergy (Verified 05/24/18 11:44) colchicine Allergy (Verified 05/24/18 11:44) iodine Allergy (Verified 05/24/18 11:44) Penicillins Allergy (Verified 05/24/18 11:44) Hives shellfish derived Allergy (Verified 05/24/18 11:44) Past Medical History - General Information source: Patient - Social History Chew tobacco use (# tins/day): No Frequency of alcohol use: None Drug Abuse: None Family history: Reviewed & Not Pertinent - Past Medical History Cardiac Medical History: Reports: Hx Atrial Fibrillation, Hx Congestive Heart Failure, Hx Coronary Artery Disease, Hx Hypercholesterolemia, Hx Hypertension Pulmonary Medical History: Reports: Hx Asthma, Hx Bronchitis, Hx Pneumonia, Hx Sleep Apnea Endocrine Medical History: Reports: Hx Diabetes Mellitus Type 2 GI Medical History: Reports: Hx Gastroesophageal Reflux Disease, Hx Hiatal Hernia - Large, with intrathoracic stomach., Hx Ulcerative Colitis Musculoskeltal Medical History: Reports Hx Arthritis Psychiatric Medical History: Reports: Hx Depression Infectious Medical History: Reports: Hx MRSA Past Surgical History: Reports: Hx Abdominal Surgery - colon resection, Hx Appendectomy, Hx Bowel Surgery - colon surgery, Hx Hysterectomy, Other - History of right hemicolectomy, questionable history of ulcerative colitis. - Immunizations History of Influenza Vaccine for 07/2017 - 12/2017 Season: Yes Influenza Administration Date for 07/2017 - 12/2017 Season: 07/14/17 Physical Exam - Notes Notes: Appear short of breath and in mild distress. (LEELA JHA) Doctor's Discharge - Discharge Referrals: TERRELL PATEL [facility] [Primary Care Provider] - Follow up as needed
[2018-07-24 13:34] LABS: HEMATOCRIT 30.6 % (36.0-47.0); HEMOGLOBIN 9.8 g/dL (12.0-15.5); MEAN CORPUSCULAR HEMOGLOBIN 26.4 pg (27.0-33.4); MEAN CORPUSCULAR VOLUME 82 fl (80-97); PLATELET COUNT 253 10^3/uL (150-450); RED BLOOD COUNT 3.72 10^6/uL (3.72-5.28); WHITE BLOOD COUNT 10.7 10^3/uL (4.0-10.5)
[2018-07-24 13:40] LABS: VENOUS BLOOD BASE EXCESS 0.9 mmol/L; VENOUS BLOOD HCO3 26.4 mmol/L (20-32); VENOUS BLOOD PCO2 45.3 mmHg (35-63); VENOUS BLOOD PH 7.38 (7.30-7.42)
[2018-07-24 13:51] LABS: ALANINE AMINOTRANSFERASE 25 U/L (9-52); ALBUMIN 3.8 g/dL (3.5-5.0); ALKALINE PHOSPHATASE 50 U/L (38-126); ANION GAP 11 (5-19); ASPARTATE AMINO TRANSFERASE 23 U/L (14-36); BILIRUBIN,DIRECT 0.3 mg/dL (0.0-0.4); BILIRUBIN,TOTAL 0.5 mg/dL (0.2-1.3); BLOOD UREA NITROGEN 35 mg/dL (7-20); CALCIUM 9.6 mg/dL (8.4-10.2); CARBON DIOXIDE 27 mmol/L (22-30); CHLORIDE 104 mmol/L (98-107); CREATINE KINASE 52 U/L (30-135); GLUCOSE 201 mg/dL (75-110); POTASSIUM 3.6 mmol/L (3.6-5.0); SODIUM 141.5 mmol/L (137-145); TOTAL PROTEIN 6.2 g/dL (6.3-8.2)
[2018-07-24 14:03] LABS: CREATINE KINASE MB 2.19 ng/mL (<4.55); TROPONIN I 0.016 ng/mL
--- NOTE | 2018-07-24 14:06 | RADIOLOGY REPORT (SQ) ---
EXAM DESCRIPTION: CHEST 2 VIEWS COMPLETED DATE/TIME: 07/24/2018 1:42 pm REASON FOR STUDY: cough, chest pain, h/o fractured ribs COMPARISON: 01/04/2018 EXAM PARAMETERS: NUMBER OF VIEWS: two views TECHNIQUE: Digital Frontal and Lateral radiographic views of the chest acquired. RADIATION DOSE: NA LIMITATIONS: none FINDINGS: LUNGS AND PLEURA: No opacities, masses or pneumothorax. No pleural effusion. MEDIASTINUM AND HILAR STRUCTURES: Hiatal hernia. HEART AND VASCULAR STRUCTURES: Heart normal size. No evidence for failure. BONES: Achilles 1 healing rib fracture is suggested on the right. HARDWARE: None in the chest. OTHER: No other significant finding. IMPRESSION: Hiatal hernia. No acute pulmonary disease. TECHNICAL DOCUMENTATION: JOB ID: [id number] [employer]- All Rights Reserved Reading location - IP/workstation name: [email or web address]
[2018-07-24 14:07] LABS: ABSOLUTE LYMPHOCYTES# (MANUAL) 2.2 10^3/uL (0.5-4.7); ABSOLUTE MONOCYTES # (MANUAL) 0.4 10^3/uL (0.1-1.4); ABSOLUTE NEUTROPHILS# (MANUAL) 7.9 10^3/uL (1.7-8.2); ANISOCYTOSIS 2+; BAND NEUTROPHILS % (MANUAL) 2 % (3-5); BASOPHILS % (MANUAL) 1 % (0-2); EOSINOPHILS % (MANUAL) 0 % (0-6); LYMPHOCYTES % (MANUAL) 21 % (13-45); METAMYELOCYTES % (MANUAL) 1 % (0); MONOCYTES % (MANUAL) 4 % (3-13); NUCLEATED RED BLOOD CELLS 1 /100 WBC (0); OVALOCYTES 2+; POIKILOCYTOSIS 2+; POLYCHROMASIA SLIGHT; SEGMENTED NEUTROPHILS % (MAN) 71 % (42-78); TOTAL CELLS COUNTED 100
[2018-07-24 14:08] LABS: HYPOCHROMASIA 1+; PLATELET COMMENT ADEQUATE; STOMATOCYTES 1+; TOXIC GRANULATION 1+
--- NOTE | 2018-07-24 16:18 | ER Document Report ---
ED General - General Chief Complaint: Shortness Of Breath Stated Complaint: DIFFICULTY BREATHING Time Seen by Provider: 07/24/18 12:36 Mode of Arrival: Wheelchair Information source: Patient, Relative TRAVEL OUTSIDE OF THE [place] IN LAST 30 DAYS: No - HPI Patient complains to provider of: Wheezing Onset: Other - This is a pleasant 77-year-old female that presented for evaluation of wheezing and shortness of breath for 1 day which started this morning, she gone the bed last night in her usual state of health, she used her normal CPAP which did help with her breathing but this morning she noted that she was feeling wheezy similar to previous episodes of asthma in the past. She denies any fevers or chills, does have a baseline cough because of bronchiectasis which her daughter says has not changed. Her sputum production has not changed. She denies any abdominal pain, diarrhea constipation or dysuria from baseline does endorse loose bowel movements normally. She denies any chest pain, lightheadedness diaphoresis rashes or other symptoms. - Related Data Allergies/Adverse Reactions: aspirin [Aspirin] Allergy (Verified 05/24/18 11:44) colchicine Allergy (Verified 05/24/18 11:44) iodine Allergy (Verified 05/24/18 11:44) Penicillins Allergy (Verified 05/24/18 11:44) Hives shellfish derived Allergy (Verified 05/24/18 11:44) Past Medical History - General Information source: Patient - Social History Smoking Status: Former Smoker Chew tobacco use (# tins/day): No Frequency of alcohol use: None Drug Abuse: None Family History: CAD, Hyperlipidemia, Hypertension Patient has suicidal ideation: No Patient has homicidal ideation: No - Past Medical History Cardiac Medical History: Reports: Hx Atrial Fibrillation, Hx Congestive Heart Failure, Hx Coronary Artery Disease, Hx Hypercholesterolemia, Hx Hypertension Pulmonary Medical History: Reports: Hx Asthma, Hx Bronchitis, Hx Pneumonia, Hx Sleep Apnea Neurological Medical History: Denies: Hx Migraine, Hx Seizures Endocrine Medical History: Reports: Hx Diabetes Mellitus Type 2 Renal/ Medical History: Denies: Hx End Stage Renal Disease, Hx Peritoneal Dialysis GI Medical History: Reports: Hx Gastroesophageal Reflux Disease, Hx Hiatal Hernia - Large, with intrathoracic stomach., Hx Ulcerative Colitis Musculoskeletal Medical History: Reports Hx Arthritis Skin Medical History: Denies Hx Psoriasis Psychiatric Medical History: Reports: Hx Depression Traumatic Medical History: Denies: Hx Traumatic Brain Injury Infectious Medical History: Reports: Hx MRSA Past Surgical History: Reports: Hx Abdominal Surgery - colon resection, Hx Appendectomy, Hx Bowel Surgery - colon surgery, Hx Hysterectomy, Other - History of right hemicolectomy, questionable history of ulcerative colitis. Review of Systems - Review of Systems -: Yes All other systems reviewed and negative Physical Exam - Vital signs Vitals: Pulse Ox 97 07/24/18 12:49 - General General appearance: Other - Diminutive chronically ill-appearing woman In distress: None - HEENT Head: Normocephalic Eyes: Normal Conjunctiva: Normal Cornea: Normal Extraocular movements intact: Yes Eyelashes: Normal Pupils: PERRL - Respiratory Respiratory status: No respiratory distress Chest status: Nontender Breath sounds: Other - Scant wheezes in the apices most prominent on the left - Cardiovascular Rhythm: Regular Heart sounds: Normal auscultation Murmur: No - Abdominal Inspection: Normal Distension: No distension Tenderness: Nontender - Back Back: Normal, Other - Marked kyphosis - Extremities General upper extremity: Normal inspection, Nontender, Normal strength, Normal temperature General lower extremity: Normal inspection, Nontender, Normal strength, Normal temperature - Neurological Neuro grossly intact: Yes Cognition: Normal Orientation: AAOx4 [place] Coma Scale Eye Opening: Spontaneous [place] Coma Scale Verbal: Oriented Jane Coma Scale Motor: Obeys Commands [place] Coma Scale Total: 15 Speech: Normal Cranial nerves: Normal Motor strength normal: LUE, RUE, LLE, RLE - Psychological Associated symptoms: Normal affect Course - Re-evaluation Re-evalutation: 07/26/18 21:58 This very pleasant 77-year-old female presented for evaluation of wheezing. She is in the care of her daughter. She notes this is similar to episodes of asthma and wheezing she has had in the past. Through triage she was started with nebulizations and given steroids. She had an EKG which was unchanged from her previous and blood work which was nondiagnostic. On examination her work of breathing is normal she has faint wheezes but a normal work of breathing is well-appearing without any systemic signs of toxicity. She denies any chest pain or tightness at this time. She was evaluated also in passing by Dr. Heller who is 1 of her primary physicians who noted that she looked very well he believes that she is likely safe for outpatient management. On reassessment I spoke to the patient as well as her daughter, she had had 2- troponins was on monitor without any event and a normal work of breathing. We will plan for this patient undergo discharge with treatment for possible COPD exacerbation including inhalers, steroids, as well as azithromycin do not believe this represents a more serious underlying cause of her shortness of breath such as but not limited to myocardial infarction, pulmonary embolism, pneumonia or other serious underlying illness. - Vital Signs Vital signs: Temp Pulse Resp BP Pulse Ox 12 147/66 H 95 07/24/18 17:01 07/24/18 17:01 07/24/18 17:01 - Laboratory Result Diagrams: 07/24/18 13:00 07/24/18 13:00 Laboratory results interpreted by me: 07/24/18 07/24/18 13:00 13:00 WBC 10.7 H Hgb 9.8 L Hct 30.6 L MCH 26.4 L RDW 18.0 H Band Neutrophils % 2 L Metamyelocytes % 1 H BUN 35 H Creatinine 1.34 H Est GFR ( Amer) 46 L Est GFR (Non-Af Amer) 38 L Glucose 201 H Total Protein 6.2 L Discharge - Discharge Clinical Impression: Wheezing COPD (chronic obstructive pulmonary disease) Qualifiers: COPD type: COPD with acute exacerbation Qualified Code(s): J44.1 - Chronic obstructive pulmonary disease with (acute) exacerbation Condition: Good Disposition: HOME, SELF-CARE Instructions: Chronic Obstructive Lung Disease ([facility]) Prescriptions: Azithromycin [Zithromax] 250 mg PO DAILY #5 tablet Prednisone [Deltasone 20 mg Tablet] 3 tab PO DAILY 5 Days tablet Referrals: TERRELL PATEL PA-C [ALLIED HEALTH PROFESSIONAL] - Follow up as needed
--- NOTE | 2018-07-24 22:26 | EKG REPORT ---
SEVERITY:- ABNORMAL ECG - SINUS RHYTHM RBBB AND LPFB : Confirmed by: Pastora Meredith MD 24-Jul-2018 22:25:43
--- NOTE | 2018-07-24 22:26 | EKG REPORT ---
SEVERITY:- ABNORMAL ECG - SINUS RHYTHM LEFT ATRIAL ABNORMALITY RBBB AND LPFB : Confirmed by: Pastora Meredith MD 24-Jul-2018 22:25:48
[2018-07-25 02:18] VITALS: BP 147/66
== END 2018-07-24 17:00 | disposition home or self-care (01) ==
LOC: ER 12:18
DX: J44.1 Chronic obstructive pulmonary disease with (acute) exacerbation (principal); R06.2 Wheezing; R06.02 Shortness of breath; R05 Cough; Z87.891 Personal history of nicotine dependence; I25.10 Atherosclerotic heart disease of native coronary artery without angina pectoris; I10 Essential (primary) hypertension; E11.9 Type 2 diabetes mellitus without complications
CPT/HCPCS: 93005; 94640; 99285; 96374; 36415; 87040; 82553; 82550; 85025; 80053; 84484; 82803; 83880; 71046; 93010; J2930; J3490 ×2

== ENCOUNTER → 2018-07-28 | Outpatient (CLI) | payer MEDICARE, OTHER ==
[2018-07-28 10:33] LABS: HEMOGLOBIN 9.8 g/dL (12.0-15.5); MEAN CORPUSCULAR HEMOGLOBIN 27.4 pg (27.0-33.4); MEAN CORPUSCULAR HGB CONC 33.6 g/dL (32.0-36.0); MEAN CORPUSCULAR VOLUME 81 fl (80-97); PLATELET COUNT 298 10^3/uL (150-450); RED BLOOD COUNT 3.56 10^6/uL (3.72-5.28); WHITE BLOOD COUNT 11.6 10^3/uL (4.0-10.5)
[2018-07-28 10:41] LABS: APPEARANCE,URINE CLEAR; BILIRUBIN,URINE NEGATIVE (NEGATIVE); COLOR,URINE YELLOW; GLUCOSE, URINE NEGATIVE (NEGATIVE); KETONES,URINE NEGATIVE (NEGATIVE); LEUKOCYTE ESTERASE,URINE SMALL (NEGATIVE); NITRITE,URINE NEGATIVE (NEGATIVE); PROTEIN,URINE NEGATIVE (NEGATIVE); URINE SPECIFIC GRAVITY 1.011; UROBILINOGEN,URINE NEGATIVE mg/dL (<2.0)
[2018-07-28 12:19] LABS: ANION GAP 12 (5-19); BLOOD UREA NITROGEN 60 mg/dL (7-20); CALCIUM 9.5 mg/dL (8.4-10.2); CARBON DIOXIDE 27 mmol/L (22-30); CHLORIDE 106 mmol/L (98-107); GLUCOSE 142 mg/dL (75-110); IRON(TIBC) 115.5 ug/dL (37-170); POTASSIUM 3.4 mmol/L (3.6-5.0); SODIUM 144.6 mmol/L (137-145)
== END ==
LOC: OD 09:32
PROVIDERS: ATTEND Physician Assistant Medical
DX: E11.22 Type 2 diabetes mellitus with diabetic chronic kidney disease (principal); N18.3 Chronic kidney disease, stage 3 (moderate); I50.9 Heart failure, unspecified; D64.9 Anemia, unspecified
CPT/HCPCS: 36415; 80048; 81001; 82728; 83540; 83550; 85027

== ENCOUNTER 2018-07-31 10:51 | Emergency (ER) | payer MEDICARE, OTHER ==
--- NOTE | 2018-07-31 11:24 | ER Document Report ---
ED Respiratory Problem - General Chief Complaint: Breathing Difficulty Stated Complaint: TROUBLE BREATHING Time Seen by Provider: 07/31/18 11:11 Notes: Patient is complaining of difficulty breathing or shortness of breath that began in the middle of the night. She has a history of asthma with exacerbations frequently. She was just here 1 week ago today and was treated and discharged on prednisone. She is normally on 20 mg a day of prednisone but had it increased to 60 mg tapered and completed the taper 2 days ago. She has a home nebulizer in which she uses DuoNeb. She has a CPAP device and home oxygen that she wears at nighttime. She also has N-acetylcysteine that she uses in her neb twice a day, but just finished that medication. Also uses budesonide inhaler twice a day. And, patient is on Bactrim 3 times a day to prevent infections. Patient has had some cough but little phlegm production. Has not had a fever. Does complain of a headache. Patient is on Eliquis for atrial fibrillation. Has never had blood clots. Has a history of CHF and is on Lasix. TRAVEL OUTSIDE OF THE [place] IN LAST 30 DAYS: No - Related Data Allergies/Adverse Reactions: aspirin [Aspirin] Allergy (Verified 07/31/18 11:03) colchicine Allergy (Verified 07/31/18 11:03) iodine Allergy (Verified 07/31/18 11:03) Penicillins Allergy (Verified 07/31/18 11:03) Hives shellfish derived Allergy (Verified 07/31/18 11:03) Past Medical History - Social History Smoking Status: Former Smoker - As a teenager Cigarette use (# per day): No Family History: Reviewed & Not Pertinent, CAD, Hyperlipidemia, Hypertension - Past Medical History Cardiac Medical History: Reports: Hx Atrial Fibrillation, Hx Congestive Heart Failure, Hx Coronary Artery Disease, Hx Hypercholesterolemia, Hx Hypertension Pulmonary Medical History: Reports: Hx Asthma, Hx Bronchitis, Hx Pneumonia, Hx Sleep Apnea Neurological Medical History: Denies: Hx Cerebrovascular Accident, Hx Migraine, Hx Seizures Endocrine Medical History: Reports: Hx Diabetes Mellitus Type 2 Renal/ Medical History: Denies: Hx End Stage Renal Disease GI Medical History: Reports: Hx Gastroesophageal Reflux Disease, Hx Hiatal Hernia - Large, with intrathoracic stomach., Hx Ulcerative Colitis Musculoskeletal Medical History: Reports Hx Arthritis Skin Medical History: Denies Hx Psoriasis Psychiatric Medical History: Reports: Hx Depression Infectious Medical History: Reports: Hx MRSA Past Surgical History: Reports: Hx Abdominal Surgery - colon resection, Hx Appendectomy, Hx Bowel Surgery - colon surgery, Hx Hysterectomy, Other - History of right hemicolectomy, questionable history of ulcerative colitis. Review of Systems - Review of Systems Notes: REVIEW OF SYSTEMS: CONSTITUTIONAL : Denies fever. EENT: Denies eye, ear, nose or mouth or throat pain or other symptoms. CARDIOVASCULAR: Denies chest pain. No peripheral swelling. RESPIRATORY: See HPI. GASTROINTESTINAL: Denies abdominal pain or nausea, vomiting, or diarrhea. GENITOURINARY: Denies difficulty or painful urinating, urinary frequency, blood in urine. MUSCULOSKELETAL: Denies back or neck pain. Denies joint pain or swelling. No swelling or pain of the lower extremities SKIN: Denies rash or skin lesions. NEUROLOGICAL: Denies LOC or altered mental status. Has a global headache. Denies sensory loss or motor deficits. ALL OTHER SYSTEMS REVIEWED AND NEGATIVE. Physical Exam - Vital signs Vitals: Resp BP Pulse Ox 13 123/59 L 100 07/31/18 11:01 07/31/18 11:01 07/31/18 11:01 Interpretation: Normal. No: Hypoxic - O2 sat 99-100% on room air. - Notes Notes: PHYSICAL EXAMINATION: GENERAL: Anxious. Vital signs are all essentially normal. Not hypoxic. HEAD: Atraumatic, normocephalic. EYES: Pupils equal round and reactive to light, extraocular movements intact. ENT: oropharynx clear without exudates. Moist mucous membranes. NECK: Normal range of motion, supple. LUNGS: Breath sounds clear and equal bilaterally. HEART: Regular rate and rhythm without murmurs. ABDOMEN: Soft, nontender. No guarding or rebound. No masses. BACK: No tenderness throughout entire back. EXTREMITIES: Normal range of motion without pain. Negative Homans bilaterally. No pain or swelling of either lower extremity. NEUROLOGICAL: Normal speech, normal gait. Normal sensory, motor, and reflex exams. Awake, alert, and oriented x3. Cranial nerves normal. PSYCH: Normal mood, normal affect. SKIN: Warm, dry, no rashes. Course - Re-evaluation Re-evalutation: 07/31/18 13:27 Patient continues to be stable. We kept her on 1 L of oxygen just as a precaution. Her O2 sat has been 99-100% on that 1 L of oxygen. Her lungs remain clear. Workup has been essentially normal. Chest x-ray normal. WBC somewhat elevated, the patient has been on steroids for a long time. BNP is insignificant. 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 Patino, and we plan on resuming her prednisone taper starting at 60 mg and decreasing by 10 mg a day after that. His office will call in a prescription for the N-acetylcysteine to the patient's pharmacy. They are to call Dr. Patino's office to schedule a follow-up appointment. Continue with all other treatments as before. Patient seems anxious, especially upon her arrival to the ED. Discussed with patient and daughter whether anxiety might be playing a role with patient's condition. Daughter relates that the patient does have anxiety attacks occasionally. I suggested a low dose anxiolytic as needed when she has episodes but everything appears to be normal. They have O2 as well as CPAP at home along with nebulizer treatments. They do have a means to measure the patient's oxygen level as well. - Vital Signs Vital signs: Temp Pulse Resp BP Pulse Ox 98.3 F 16 138/59 H 100 07/31/18 11:14 07/31/18 13:04 07/31/18 13:04 07/31/18 13:04 - Laboratory Result Diagrams: 07/31/18 12:03 07/31/18 12:03 Laboratory results interpreted by me: 07/31/18 07/31/18 12:03 12:03 WBC 13.9 H RBC 3.68 L Hgb 9.7 L Hct 30.0 L MCH 26.4 L RDW 17.9 H Metamyelocytes % 1 H Abs Neuts (Manual) 9.7 H BUN 54 H Creatinine 1.87 H Est GFR ( Amer) 32 L Est GFR (Non-Af Amer) 26 L Glucose 68 L Total Protein 6.1 L - Diagnostic Test Radiology results interpreted by me: 07/31/18 13:26 Chest x-ray is normal. No infiltrates. No evidence of CHF. - EKG Interpretation by Me EKG shows normal: Sinus rhythm Rate: Normal Rhythm: NSR Additional EKG results interpreted by me: 07/31/18 13:27 EKG is essentially normal. Discharge - Discharge Clinical Impression: Asthma, Anxiety Condition: Stable Disposition: HOME, SELF-CARE Additional Instructions: ASTHMA: You have been diagnosed as having asthma. This is a condition where there is episodic tightness in the bronchial tubes. Allergies, infections, and polluted or cold air may be contributing factors. Emergency treatment of a severe asthma attack may include adrenaline shots , or bronchodilator aerosol. You may feel lightheaded, have a decreased exercise tolerance and a rapid pulse for an hour or two. Rest and get plenty of fluids. Home treatment of asthma requires bronchodilator drugs. These can be administered by injection, inhalation, or by mouth. Antibiotics and corticosteroids may be required for some patients. You should avoid chemical fumes, dusts, pollens, and exercising in very cold or dry air. If you smoke, stop!! If you develop a fever, increased wheezing, chest pain, or severe shortness of breath, you should contact the doctor immediately. STEROID MEDICATION: You have been given an injection of or oral medicine of the cortisone/ steroid class. This medication is used to control inflammation or allergy. Singh t is usually only given for a short period of time, until the acute process subsides. There are usually no side effects from short-term use of cortisone-like medications. Some persons feel an increased sense of well-being and are not sleepy at bedtime. Long-term use of cortisone medications is best avoided, unless required for a severe condition. If your condition does not remit, or relapses after the course of corticosteroid medication, you should consult your physician. INHALED BRONCHODILATORS: You have received treatment(s) of and/or prescription for an inhaled bronchodilator -- a medication which stimulates the airways in the lung to dilate. This improves the flow of air in asthma, bronchitis, and emphysema. These medicines have some similarity to adrenaline, and can cause similar side effects: shakiness, racing heart, and a sense of nervousness. These side effects decrease with time. Contact your doctor if these side effects are severe. Do not over-use the medicine. Too-frequent use of the inhaler may make it ineffective. Call your doctor if the inhaler is not controlling your symptoms at the prescribed doses. Continue your Bactrim antibiotic as before. ANTIBIOTIC THERAPY: You have been given an antibiotic prescription. It's important that you take all the medication, unless instructed otherwise by your physician. Failure to complete the entire course can result in relapse of your condition. Common side effects of antibiotics include nausea, intestinal cramping, or diarrhea. Women may develop vaginal yeast infections, and babies can get yeast (thrush) in the mouth following the use of antibiotics. Contact your physician if you develop significant side effects from this medication. Allergy to this antibiotic can result in hives, wheezing, faintness, or itching. If symptoms of allergy occur, stop the medication and call your doctor. Anxiety The physician feels that some of your health problems are being caused by anxiety. Anxiety affects your health in many ways. Anxiety alone can cause palpitations, sweats, chest pains, abdominal pains, shortness of breath, and headaches. It contributes to ulcer disease, high blood pressure, irritable bowel syndrome, and has been shown to cause flare-ups of many other diseases. Anxiety is not a simple disorder to treat. If the anxiety is due to recent life stresses, you may simply need time to "work through" the changes. If the anxiety is due to an underlying unhappiness with yourself or due to psychiatric disturbance, professional help will be needed. Your physician can refer you for further help if needed. Anti-anxiety medication is occasionally given if the stress is acute or if you are having trouble sleeping. Chronic or frequent use of these medications is not a good idea because the body becomes reliant on it, preventing you from dealing with life's normal stresses. Benzodiazepines You have been given a benzodiazepine medication. Examples of this type of medicine include Valium, Xanax, Librium, Ativan, and Halcion. Benzodiazepines have many uses. Medications of this type are used for insomnia, anxiety, muscle spasms, seizures, and drug and alcohol withdrawal. You may become very drowsy when you first take the medication. You should not drive or operate machinery while under its effects. Do not combine the medication with alcohol, or with any other medication without talking to your doctor. Do not take if without specific instruction from your shampoo assistant. Some benzodiazepines may have harmful interactions with oral antifungal medicines such as ketoconazole, itraconazole, and nefazodone. If you are taking an antifungal medicine, discuss this with your doctor before taking benzodiazepines. FOLLOW-UP CARE: If you have been referred to a physician for follow-up care, call the physician s office for an appointment as you were instructed or within the next two days. If you experience worsening or a significant change in your symptoms, notify the physician immediately or return to the Emergency Department at any time for re-evaluation. Call Dr. Patino's office this afternoon to schedule your follow-up appointment with him. They are going to call you a prescription in for your N acetylcysteine to your local pharmacy. I am giving you a prescription for the tapering dose of prednisone. Prescriptions: Lorazepam [Ativan 0.5 mg Tablet] 0.5 mg PO Q6HP PRN #10 tab PRN Reason: Prednisone [Deltasone 10 mg Tablet] 10 mg PO ASDIR PRN #21 tablet PRN Reason: Referrals: EVANGELINA FRANCO PA-C [ALLIED HEALTH PROFESSIONAL] - Follow up as needed
--- NOTE | 2018-07-31 12:00 | RADIOLOGY REPORT (SQ) ---
EXAM DESCRIPTION: CHEST SINGLE VIEW COMPLETED DATE/TIME: 07/31/2018 11:51 am REASON FOR STUDY: Short of breath COMPARISON: 07/24/2018 EXAM PARAMETERS: NUMBER OF VIEWS: One view. TECHNIQUE: Single frontal radiographic view of the chest acquired. RADIATION DOSE: NA LIMITATIONS: None. FINDINGS: LUNGS AND PLEURA: No opacities, masses or pneumothorax. No pleural effusion. MEDIASTINUM AND HILAR STRUCTURES: No masses. Contour normal. HEART AND VASCULAR STRUCTURES: Heart normal in size. Normal vasculature. BONES: No acute findings. HARDWARE: None in the chest. OTHER: No other significant finding. IMPRESSION: NO ACUTE RADIOGRAPHIC FINDING IN THE CHEST. TECHNICAL DOCUMENTATION: JOB ID: [id number] [email or web address]- All Rights Reserved Reading location - IP/workstation name: [email or web address]
[2018-07-31 12:23] LABS: HEMOGLOBIN 9.7 g/dL (12.0-15.5); MEAN CORPUSCULAR HEMOGLOBIN 26.4 pg (27.0-33.4); MEAN CORPUSCULAR HGB CONC 32.3 g/dL (32.0-36.0); MEAN CORPUSCULAR VOLUME 82 fl (80-97); PLATELET COUNT 250 10^3/uL (150-450); RED BLOOD COUNT 3.68 10^6/uL (3.72-5.28); RED CELL DISTRIBUTION WIDTH 17.9 % (11.5-14.0); WHITE BLOOD COUNT 13.9 10^3/uL (4.0-10.5)
[2018-07-31 12:32] LABS: INTERNATIONAL RATION (INR) 1.01; PROTHROMBIN TIME 13.8 SEC (11.4-15.4)
--- NOTE | 2018-07-31 12:45 | EKG REPORT ---
SEVERITY:- ABNORMAL ECG - SINUS RHYTHM DIFFUSE NONSPECIFIC ST-T CHANGES PROBABLE LEFT ATRIAL ABNORMALITY : Confirmed by: Toni Cheung MD 31-Jul-2018 12:45:13
[2018-07-31 12:55] LABS: ABSOLUTE LYMPHOCYTES# (MANUAL) 3.8 10^3/uL (0.5-4.7); ABSOLUTE MONOCYTES # (MANUAL) 0.4 10^3/uL (0.1-1.4); ABSOLUTE NEUTROPHILS# (MANUAL) 9.7 10^3/uL (1.7-8.2); ANISOCYTOSIS 2+; BASOPHILS % (MANUAL) 0 % (0-2); EOSINOPHILS % (MANUAL) 0 % (0-6); LYMPHOCYTES % (MANUAL) 27 % (13-45); METAMYELOCYTES % (MANUAL) 1 % (0); MONOCYTES % (MANUAL) 3 % (3-13); OVALOCYTES 1+; PLATELET COMMENT ADEQUATE; POIKILOCYTOSIS 1+; SCHISTOCYTES SLIGHT; SEGMENTED NEUTROPHILS % (MAN) 69 % (42-78); TEAR DROP CELLS SLIGHT; TOTAL CELLS COUNTED 100
[2018-07-31 12:59] LABS: CREATINE KINASE MB 2.24 ng/mL (<4.55); TROPONIN I 0.027 ng/mL
[2018-07-31 13:18] LABS: ALANINE AMINOTRANSFERASE 22 U/L (9-52); ALBUMIN 3.6 g/dL (3.5-5.0); ALKALINE PHOSPHATASE 46 U/L (38-126); ANION GAP 8 (5-19); ASPARTATE AMINO TRANSFERASE 33 U/L (14-36); BILIRUBIN,DIRECT 0.3 mg/dL (0.0-0.4); BILIRUBIN,TOTAL 0.5 mg/dL (0.2-1.3); BLOOD UREA NITROGEN 54 mg/dL (7-20); CALCIUM 8.9 mg/dL (8.4-10.2); CARBON DIOXIDE 27 mmol/L (22-30); CHLORIDE 106 mmol/L (98-107); CREATINE KINASE 56 U/L (30-135); GLUCOSE 68 mg/dL (75-110); POTASSIUM 3.6 mmol/L (3.6-5.0); SODIUM 141.4 mmol/L (137-145); TOTAL PROTEIN 6.1 g/dL (6.3-8.2)
[2018-07-31 13:20] VITALS: BP 138/59
== END 2018-07-31 13:54 | disposition home or self-care (01) ==
LOC: ER 10:51
DX: J45.909 Unspecified asthma, uncomplicated (principal); F41.9 Anxiety disorder, unspecified; R51 Headache; I48.91 Unspecified atrial fibrillation; I50.9 Heart failure, unspecified; I25.10 Atherosclerotic heart disease of native coronary artery without angina pectoris; E78.00 Pure hypercholesterolemia, unspecified; I11.0 Hypertensive heart disease with heart failure; E11.9 Type 2 diabetes mellitus without complications; Z90.710 Acquired absence of both cervix and uterus; Z88.6 Allergy status to analgesic agent; Z86.14 Personal history of Methicillin resistant Staphylococcus aureus infection
CPT/HCPCS: 36415; 71045; 80053; 82550; 82553; 83880; 84484; 85025; 85610; 93005; 93010; 99285

== ENCOUNTER → 2018-08-18 | Outpatient (CLI) | payer MEDICARE, OTHER ==
[2018-08-18 10:13] LABS: HEMATOCRIT 27.6 % (36.0-47.0); HEMOGLOBIN 9.2 g/dL (12.0-15.5); MEAN CORPUSCULAR HEMOGLOBIN 27.3 pg (27.0-33.4); MEAN CORPUSCULAR HGB CONC 33.3 g/dL (32.0-36.0); MEAN CORPUSCULAR VOLUME 82 fl (80-97); PLATELET COUNT 232 10^3/uL (150-450); RED BLOOD COUNT 3.37 10^6/uL (3.72-5.28); RED CELL DISTRIBUTION WIDTH 18.6 % (11.5-14.0); WHITE BLOOD COUNT 7.6 10^3/uL (4.0-10.5)
[2018-08-18 10:34] LABS: ANION GAP 9 (5-19); BLOOD UREA NITROGEN 59 mg/dL (7-20); CALCIUM 9.4 mg/dL (8.4-10.2); CARBON DIOXIDE 27 mmol/L (22-30); CHLORIDE 107 mmol/L (98-107); GLUCOSE 197 mg/dL (75-110); IRON(TIBC) 47.3 ug/dL (37-170); POTASSIUM 4.6 mmol/L (3.6-5.0)
[2018-08-18 10:41] LABS: APPEARANCE,URINE SLIGHTLY-CLOUDY; BILIRUBIN,URINE NEGATIVE (NEGATIVE); COLOR,URINE YELLOW; GLUCOSE, URINE NEGATIVE (NEGATIVE); KETONES,URINE NEGATIVE (NEGATIVE); LEUKOCYTE ESTERASE,URINE TRACE (NEGATIVE); NITRITE,URINE NEGATIVE (NEGATIVE); PROTEIN,URINE NEGATIVE (NEGATIVE); URINE SPECIFIC GRAVITY 1.017; UROBILINOGEN,URINE NEGATIVE mg/dL (<2.0)
== END ==
LOC: OD 08:54
PROVIDERS: ATTEND Internal Medicine Nephrology
DX: E11.22 Type 2 diabetes mellitus with diabetic chronic kidney disease (principal); N18.3 Chronic kidney disease, stage 3 (moderate); I50.9 Heart failure, unspecified; D64.9 Anemia, unspecified
CPT/HCPCS: 36415; 80048; 81001; 82728; 83540; 83550; 85027

== ENCOUNTER → 2018-09-08 | Outpatient (CLI) | payer MEDICARE, OTHER ==
[2018-09-08 09:43] LABS: HEMATOCRIT 28.7 % (36.0-47.0); HEMOGLOBIN 9.5 g/dL (12.0-15.5); MEAN CORPUSCULAR HEMOGLOBIN 27.2 pg (27.0-33.4); MEAN CORPUSCULAR HGB CONC 33.3 g/dL (32.0-36.0); MEAN CORPUSCULAR VOLUME 82 fl (80-97); PLATELET COUNT 226 10^3/uL (150-450); RED CELL DISTRIBUTION WIDTH 18.2 % (11.5-14.0); WHITE BLOOD COUNT 9.7 10^3/uL (4.0-10.5)
[2018-09-08 09:56] LABS: APPEARANCE,URINE SLIGHTLY-CLOUDY; BILIRUBIN,URINE NEGATIVE (NEGATIVE); COLOR,URINE YELLOW; GLUCOSE, URINE NEGATIVE (NEGATIVE); KETONES,URINE NEGATIVE (NEGATIVE); LEUKOCYTE ESTERASE,URINE SMALL (NEGATIVE); NITRITE,URINE NEGATIVE (NEGATIVE); PROTEIN,URINE NEGATIVE (NEGATIVE); URINE SPECIFIC GRAVITY 1.016; UROBILINOGEN,URINE NEGATIVE mg/dL (<2.0)
[2018-09-08 10:03] LABS: ANION GAP 10 (5-19); BLOOD UREA NITROGEN 75 mg/dL (7-20); CARBON DIOXIDE 22 mmol/L (22-30); CHLORIDE 114 mmol/L (98-107); GLUCOSE 115 mg/dL (75-110); IRON(TIBC) 48.8 ug/dL (37-170); POTASSIUM 4.7 mmol/L (3.6-5.0); SODIUM 145.8 mmol/L (137-145)
== END ==
LOC: OD 08:49
PROVIDERS: ATTEND Internal Medicine Nephrology
DX: N18.3 Chronic kidney disease, stage 3 (moderate) (principal); I50.9 Heart failure, unspecified; D64.9 Anemia, unspecified; E11.9 Type 2 diabetes mellitus without complications
CPT/HCPCS: 36415; 80048; 81001; 82728; 83540; 83550; 85027

== ENCOUNTER → 2018-10-15 | Outpatient (CLI) | payer MEDICARE, OTHER ==
--- NOTE | 2018-10-15 14:34 | RADIOLOGY REPORT (SQ) ---
EXAM DESCRIPTION: CT HEAD WITHOUT COMPLETED DATE/TIME: 10/15/2018 2:15 pm REASON FOR STUDY: FACIAL DROOP R29.810 FACIAL WEAKNESS COMPARISON: None. TECHNIQUE: Axial images acquired through the brain without intravenous contrast. Images reviewed wi th bone, brain and subdural windows. Additional sagittal and coronal reconstructions were generated. Images stored on PACS. All CT scanners at this facility use dose modulation, iterative reconstruction, and/or weight based d osing when appropriate to reduce radiation dose to as low as reasonably achievable (ALARA). [facility]: Dose Right [facility]: CareDose [facility]: Dose Right [facility]: Teradose 4D [facility]: A LITTLE WORLD RADIATION DOSE: CT Rad equipment meets quality standard of care and radiation dose reduction techniq ues were employed. CTDIvol: 48.5 mGy. DLP: 878 mGy-cm. mGy. LIMITATIONS: None. FINDINGS: VENTRICLES: Prominent. CEREBRUM: No masses. No hemorrhage. No midline shift. Areas of low density in the white matter mos t likely due to chronic micro-vascular ischemic change. No evidence for acute infarction. CEREBELLUM: No masses. No hemorrhage. No alteration of density. No evidence for acute infarction. EXTRAAXIAL SPACES: Mild age-related involutional change. No fluid collections. No masses. ORBITS AND GLOBE: No intra- or extraconal masses. Normal contour of globe without masses. CALVARIUM: No fracture. PARANASAL SINUSES: No fluid or mucosal thickening. SOFT TISSUES: No mass or hematoma. OTHER: No other significant finding. IMPRESSION: MILD CHRONIC CHANGES OF ATROPHY AND MICROVASCULAR ISCHEMIA. NO ACUTE PROCESS. EVIDENCE OF ACUTE STROKE: NO. TECHNICAL DOCUMENTATION: JOB ID: [id number] Quality ID # [id number]: Final reports with documentation of one or more dose reduction techniques (e.g., Au tomated exposure control, adjustment of the mA and/or kV according to patient size, use of iterative reconstruction technique) 2010 [employer]- All Rights Reserved Reading location - IP/workstation name: [email or web address]
== END ==
LOC: RAD 13:57
PROVIDERS: ATTEND Physician Assistant
DX: R29.810 Facial weakness (principal)
CPT/HCPCS: 70450

== ENCOUNTER 2018-10-17 15:33 | Inpatient (IN) | payer MEDICARE, OTHER ==
--- NOTE | 2018-10-17 18:13 | RADIOLOGY REPORT (SQ) ---
EXAM DESCRIPTION: CHEST SINGLE VIEW COMPLETED DATE/TIME: 10/17/2018 5:57 pm REASON FOR STUDY: cough COMPARISON: 07/31/2018 EXAM PARAMETERS: NUMBER OF VIEWS: One view. TECHNIQUE: Single frontal radiographic view of the chest acquired. RADIATION DOSE: NA LIMITATIONS: None. FINDINGS: LUNGS AND PLEURA: Small subpleural opacification in the right lung laterally. No infiltra te or effusion. MEDIASTINUM AND HILAR STRUCTURES: No masses. Contour normal. HEART AND VASCULAR STRUCTURES: Heart normal in size. Normal vasculature. BONES: No acute findings. HARDWARE: None in the chest. OTHER: No other significant finding. IMPRESSION: Apparent scarring in the right lung. No acute cardiopulmonary findings. TECHNICAL DOCUMENTATION: JOB ID: [id number] [employer]- All Rights Reserved Reading location - IP/workstation name: [email or web address]
--- NOTE | 2018-10-17 18:33 | ER Document Report ---
ED Medical Screen (RME) - General Chief Complaint: Anxiety Stated Complaint: POSSIBLE ANXIETY Time Seen by Provider: 10/17/18 17:06 TRAVEL OUTSIDE OF THE [place] IN LAST 30 DAYS: No - Related Data Allergies/Adverse Reactions: aspirin [Aspirin] Allergy (Verified 10/17/18 17:22) Hives colchicine Allergy (Verified 10/17/18 17:22) Hives iodine Allergy (Verified 10/17/18 17:22) Hives NSAIDS (Non-Steroidal Anti-Inflamma Allergy (Verified 10/17/18 17:22) Hives Penicillins Allergy (Verified 10/17/18 15:37) Hives shellfish derived Allergy (Verified 10/17/18 17:22) Hives Past Medical History - Social History Family history: Reviewed & Not Pertinent - Past Medical History Cardiac Medical History: Reports: Hx Atrial Fibrillation, Hx Congestive Heart Failure, Hx Coronary Artery Disease, Hx Hypercholesterolemia, Hx Hypertension Pulmonary Medical History: Reports: Hx Asthma, Hx Bronchitis, Hx Pneumonia, Hx Sleep Apnea Neurological Medical History: Denies: Hx Cerebrovascular Accident, Hx Migraine, Hx Seizures Endocrine Medical History: Reports: Hx Diabetes Mellitus Type 2 Renal/ Medical History: Denies: Hx End Stage Renal Disease, Hx Peritoneal Dialysis GI Medical History: Reports: Hx Gastroesophageal Reflux Disease, Hx Hiatal Hernia - Large, with intrathoracic stomach., Hx Ulcerative Colitis Musculoskeltal Medical History: Reports Hx Arthritis Skin Medical History: Denies Hx Psoriasis Psychiatric Medical History: Reports: Hx Depression Traumatic Medical History: Denies: Hx Traumatic Brain Injury Infectious Medical History: Reports: Hx MRSA Past Surgical History: Reports: Hx Abdominal Surgery - colon resection, Hx Appendectomy, Hx Bowel Surgery - colon surgery, Hx Hysterectomy, Other - History of right hemicolectomy, questionable history of ulcerative colitis. - Immunizations History of Influenza Vaccine for 07/2017 - 12/2017 Season: Yes Influenza Administration Date for 07/2017 - 12/2017 Season: 07/14/17 Physical Exam - Vital signs Vitals: Temp Pulse Resp BP Pulse Ox 98.2 F 81 20 123/61 96 10/17/18 15:48 10/17/18 15:48 10/17/18 15:48 10/17/18 15:48 10/17/18 15:48 Course - Re-evaluation Re-evalutation: 10/17/18 18:33 77-year-old woman presenting from Dr. Heller's office for concern of Rodriguez's palsy as well as anxiety. Have seen and evaluated this patient in rapid medical screening examination, he will require further evaluation reassessment and disposition determination by secondary medical provider. - Vital Signs Vital signs: Temp Pulse Resp BP Pulse Ox 98.2 F 81 20 123/61 96 10/17/18 15:48 10/17/18 15:48 10/17/18 15:48 10/17/18 15:48 10/17/18 15:48 - Laboratory Result Diagrams: 10/17/18 18:30 10/17/18 18:30 Laboratory results interpreted by me: 10/17/18 18:30 Potassium 5.6 H Chloride 109 H Carbon Dioxide 17 L BUN 120 H Creatinine 2.85 H Est GFR ( Amer) 19 L Est GFR (Non-Af Amer) 16 L Glucose 199 H Direct Bilirubin 0.5 H Alkaline Phosphatase 35 L Doctor's Discharge - Discharge Instructions: Anxiety ([facility]) Referrals: NICOLE VALDEZ PA [Primary Care Provider] - Follow up as needed
[2018-10-17 19:10] LABS: HEMATOCRIT 27.8 % (36.0-47.0); HEMOGLOBIN 9.2 g/dL (12.0-15.5); MEAN CORPUSCULAR HEMOGLOBIN 26.7 pg (27.0-33.4); MEAN CORPUSCULAR HGB CONC 32.9 g/dL (32.0-36.0); MEAN CORPUSCULAR VOLUME 81 fl (80-97); PLATELET COUNT 316 10^3/uL (150-450); RED BLOOD COUNT 3.43 10^6/uL (3.72-5.28); RED CELL DISTRIBUTION WIDTH 17.3 % (11.5-14.0); WHITE BLOOD COUNT 20.2 10^3/uL (4.0-10.5)
[2018-10-17 19:21] LABS: ALANINE AMINOTRANSFERASE 30 U/L (9-52); ALBUMIN 4.1 g/dL (3.5-5.0); ALKALINE PHOSPHATASE 35 U/L (38-126); ANION GAP 15 (5-19); ASPARTATE AMINO TRANSFERASE 30 U/L (14-36); BILIRUBIN,DIRECT 0.5 mg/dL (0.0-0.4); BILIRUBIN,TOTAL 0.7 mg/dL (0.2-1.3); BLOOD UREA NITROGEN 120 mg/dL (7-20); CALCIUM 9.8 mg/dL (8.4-10.2); CARBON DIOXIDE 17 mmol/L (22-30); CHLORIDE 109 mmol/L (98-107); CREATINE KINASE 106 U/L (30-135); GLUCOSE 199 mg/dL (75-110); POTASSIUM 5.6 mmol/L (3.6-5.0); SODIUM 140.5 mmol/L (137-145); TOTAL PROTEIN 6.5 g/dL (6.3-8.2)
[2018-10-17 19:32] LABS: CREATINE KINASE MB 4.12 ng/mL (<4.55)
[2018-10-17] MEDS ORDERED: NORMAL SALINE 500 ML IV ONE (19:33)
[2018-10-17 19:39] LABS: ABSOLUTE LYMPHOCYTES# (MANUAL) 1.2 10^3/uL (0.5-4.7); ABSOLUTE MONOCYTES # (MANUAL) 0.8 10^3/uL (0.1-1.4); ABSOLUTE NEUTROPHILS# (MANUAL) 18.2 10^3/uL (1.7-8.2); BASOPHILS % (MANUAL) 0 % (0-2); EOSINOPHILS % (MANUAL) 0 % (0-6); LYMPHOCYTES % (MANUAL) 6 % (13-45); MONOCYTES % (MANUAL) 4 % (3-13); SEGMENTED NEUTROPHILS % (MAN) 90 % (42-78); TOTAL CELLS COUNTED 100
[2018-10-17 19:40] LABS: ANISOCYTOSIS 1+; OVALOCYTES SLIGHT; PLATELET COMMENT ADEQUATE; PLATELET LARGE PRESENT; POIKILOCYTOSIS SLIGHT
[2018-10-17 19:50] LABS: TROPONIN I 0.034 ng/mL
[2018-10-17 21:30] LABS: APPEARANCE,URINE CLEAR; BILIRUBIN,URINE NEGATIVE (NEGATIVE); COLOR,URINE STRAW; GLUCOSE, URINE NEGATIVE (NEGATIVE); KETONES,URINE NEGATIVE (NEGATIVE); LEUKOCYTE ESTERASE,URINE SMALL (NEGATIVE); NITRITE,URINE NEGATIVE (NEGATIVE); PROTEIN,URINE NEGATIVE (NEGATIVE); URINE SPECIFIC GRAVITY 1.009; UROBILINOGEN,URINE NEGATIVE mg/dL (<2.0)
--- NOTE | 2018-10-17 22:55 | EKG REPORT ---
SEVERITY:- ABNORMAL ECG - SINUS RHYTHM RUN OF VENTRICULAR PREMATURE COMPLEXES PROBABLE LEFT ATRIAL ABNORMALITY LEFT POSTERIOR FASCICULAR BLOCK : Confirmed by: Pastora Meredith MD 17-Oct-2018 22:53:14
[2018-10-17] MEDS: NORMAL SALINE 1000 ML 1,000 ML IV ONE ×2 (23:25→23:42)
[2018-10-17] MEDS ORDERED: NORMAL SALINE 1000 ML 250 ML IV ONE (23:33)
--- NOTE | 2018-10-17 23:37 | ER Document Report ---
ED General - General Chief Complaint: Anxiety Stated Complaint: POSSIBLE ANXIETY Time Seen by Provider: 10/17/18 17:06 Notes: Patient is a 77-year-old female With a past medical history of hypertension, congestive heart failure, polymyositis, asthma, chronic adrenal insufficiency secondary to steroid use, chronic kidney disease who presents with multiple concerns. Family states they referred from the primary care doctor's office due to concerns of a severe panic attack as well as the patient having been diagnosed with Rodriguez's palsy within the last several days. Patient did have a CT of her head completed on 10/15 which was normal. The family reports that there was also apparently concern about the possibility of deteriorating renal fu nction. At the time of my assessment the patient denies any immediate complaints. She states that she does feel somewhat fatigued. She is currently following with nephrology and reports that her kidney functions have been unchanged although does not know her baseline functions. Has been taking all medications as directed. Nothing improves or worsens her symptoms. She denies any active shortness of breath, chest pain, abdominal pain, focal weakness or numbness. States that the right-sided facial droop is unchanged. TRAVEL OUTSIDE OF THE [place] IN LAST 30 DAYS: No - Related Data Allergies/Adverse Reactions: aspirin [Aspirin] Allergy (Verified 10/17/18 17:22) Hives colchicine Allergy (Verified 10/17/18 17:22) Hives iodine Allergy (Verified 10/17/18 17:22) Hives NSAIDS (Non-Steroidal Anti-Inflamma Allergy (Verified 10/17/18 17:22) Hives Penicillins Allergy (Verified 10/17/18 15:37) Hives shellfish derived Allergy (Verified 10/17/18 17:22) Hives Past Medical History - General Information source: Patient, Relative - Social History Smoking Status: Never Smoker Frequency of alcohol use: None Drug Abuse: None Lives with: Family Family History: Reviewed & Not Pertinent, CAD, Hyperlipidemia, Hypertension Patient has suicidal ideation: No Patient has homicidal ideation: No - Past Medical History Cardiac Medical History: Reports: Hx Atrial Fibrillation, Hx Congestive Heart Failure, Hx Coronary Artery Disease, Hx Hypercholesterolemia, Hx Hypertension Pulmonary Medical History: Reports: Hx Asthma, Hx Bronchitis, Hx Pneumonia, Hx Sleep Apnea Neurological Medical History: Denies: Hx Cerebrovascular Accident, Hx Migraine, Hx Seizures Endocrine Medical History: Reports: Hx Diabetes Mellitus Type 2 Renal/ Medical History: Denies: Hx End Stage Renal Disease, Hx Peritoneal Dialysis GI Medical History: Reports: Hx Gastroesophageal Reflux Disease, Hx Hiatal Hernia - Large, with intrathoracic stomach., Hx Ulcerative Colitis Musculoskeletal Medical History: Reports Hx Arthritis Skin Medical History: Denies Hx Psoriasis Psychiatric Medical History: Reports: Hx Depression Traumatic Medical History: Denies: Hx Traumatic Brain Injury Infectious Medical History: Reports: Hx MRSA Past Surgical History: Reports: Hx Abdominal Surgery - colon resection, Hx Appendectomy, Hx Bowel Surgery - colon surgery, Hx Hysterectomy, Other - History of right hemicolectomy, questionable history of ulcerative colitis. Review of Systems - Review of Systems Notes: Constitutional: Negative for fever. HENT: Negative for sore throat. Eyes: Negative for visual changes. Cardiovascular: Negative for chest pain. Respiratory: Positive for shortness of breath now resolved Gastrointestinal: Negative for abdominal pain, vomiting or diarrhea. Genitourinary: Negative for dysuria. Musculoskeletal: Negative for back pain. Skin: Negative for rash. Neurological: Negative for headaches, positive for right facial droop 10 point ROS negative except as marked above and in HPI. Physical Exam - Vital signs Vitals: Temp Pulse Resp BP Pulse Ox 98.2 F 81 20 123/61 96 10/17/18 15:48 10/17/18 15:48 10/17/18 15:48 10/17/18 15:48 10/17/18 15:48 Interpretation: Normal Notes: PHYSICAL EXAMINATION: GENERAL: Well-appearing, well-nourished and in no acute distress. HEAD: Atraumatic, normocephalic. EYES: Pupils equal round and reactive to light, extraocular movements intact, sclera anicteric, conjunctiva are normal. ENT: nares patent, oropharynx clear without exudates. Dry mucous membranes. NECK: Normal range of motion, supple without lymphadenopathy LUNGS: Breath sounds clear to auscultation bilaterally and equal. No wheezes rales or rhonchi. HEART: Regular rate and rhythm without murmurs ABDOMEN: Soft, nontender, normoactive bowel sounds. No guarding, no rebound. No masses appreciated. EXTREMITIES: Normal range of motion, no pitting or edema. No cyanosis. NEUROLOGICAL: Prominent right facial droop. Effacement of the right forehead. Tongue protrudes midline. Extraocular motions intact. Pupils are 2 mm and equally reactive. Normal speech, gait testing deferred. 5 out of 5 strength in both the distal and proximal upper and lower extremities bilaterally. Sensation is grossly intact throughout. PSYCH: Normal mood, normal affect. SKIN: Warm, Dry, normal turgor, no rashes or lesions noted. Course - Re-evaluation Re-evalutation: 10/17/18 23:33 Patient presents with concerns of increasing anxiety, renal dysfunction and Rodriguez's palsy as an outpatient. Patient was referred from the primary care clinic today. On exam the patient does have a very clear right-sided Rodriguez's palsy, not consistent with an acute stroke, GI bleed MRI indication is present. The patient's renal dysfunction has however continued to worsen, GFR down to 16 from mid 30s less than 2 months ago. BUN/creatinine ratio above 20, consistent with likely prerenal azotemia superimposed on chronic kidney disease. The patient is on furosemide as an outpatient, potassium is also noted to be elevated at 5.6. Given her rapid deterioration of renal function and GFR down to [address] Lopez is neon sign maker for Dr. Heller and has agreed to admit the patient to observation on telemetry. The patient has received a total of 500 cc of normal saline prior to my assessment. No evidence of fluid overload in the context. An additional 250 cc will be administered. Her Lasix will currently be held. EKG without any changes worrisome in this context of hyperkalemia. Of note, the labs also incidentally notes a nonspecific sense of 20. Suspect that this is likely due to a recent burst of steroids that the patient was placed on for else palsy has she has no infectious symptoms, no fever, tachycardia. Chest x-ray and urinalysis clear. - Vital Signs Vital signs: Temp Pulse Resp BP Pulse Ox 98.2 F 81 20 113/42 L 97 10/17/18 15:48 10/17/18 15:48 10/17/18 15:48 10/18/18 04:01 10/18/18 04:01 - Laboratory Result Diagrams: 10/17/18 18:30 10/17/18 18:30 Laboratory results interpreted by me: 10/17/18 10/17/18 10/17/18 18:30 18:30 18:30 WBC 20.2 H RBC 3.43 L Hgb 9.2 L Hct 27.8 L MCH 26.7 L RDW 17.3 H Seg Neuts % (Manual) 90 H Lymphocytes % (Manual) 6 L Abs Neuts (Manual) 18.2 H Potassium 5.6 H Chloride 109 H Carbon Dioxide 17 L BUN 120 H Creatinine 2.85 H Est GFR ( Amer) 19 L Est GFR (Non-Af Amer) 16 L Glucose 199 H Direct Bilirubin 0.5 H Alkaline Phosphatase 35 L NT-Pro-B Natriuret Pep 511 H Ur Leukocyte Esterase 10/17/18 21:05 WBC RBC Hgb Hct MCH RDW Seg Neuts % (Manual) Lymphocytes % (Manual) Abs Neuts (Manual) Potassium Chloride Carbon Dioxide BUN Creatinine Est GFR ( Amer) Est GFR (Non-Af Amer) Glucose Direct Bilirubin Alkaline Phosphatase NT-Pro-B Natriuret Pep Ur Leukocyte Esterase SMALL H - Diagnostic Test Radiology reviewed: Image reviewed, Reports reviewed Radiology results interpreted by me: 10/17/18 23:35 Chest x-ray: No acute infiltrate or pneumothorax - EKG Interpretation by Me Additional EKG results interpreted by me: 10/17/18 23:36 Sinus rhythm, rate 75. Intermittent PVCs. No ST elevations or depressions. QTC 429. Discharge - Discharge Clinical Impression: Hyperkalemia, Acute kidney injury superimposed on chronic kidney disease, Rodriguez's palsy Condition: Fair Disposition: ADMITTED OBSERVATION Admitting Provider: [facility] Unit Admitted: Telemetry
[2018-10-18] MEDS: NORMAL SALINE 1000 ML 1,000 ML IV PRN ×2 (04:50→19:50)
[2018-10-18] MEDS ORDERED: GLUCAGON,HUMAN RECOMB 1 MG INJ IM PRN (12:38)
[2018-10-18] MEDS ORDERED: DEXTROSE 40% GEL 15 GM TUBE PO PRN ×2 (12:38)
[2018-10-18] MEDS ORDERED: DEXTROSE 50%-WATER 25 GM/50 ML DISP.SYRIN IV PRN ×2 (12:38)
--- NOTE | 2018-10-18 13:17 | PDOC H&P ---
History of Present Illness Admission Date/PCP: 10/18/18 05:43 JOEY CHRISTIANSON MD Patient complains of: Worsening anxiety History of Present Illness: JESSY PARKER is a 77 year old female patient of Dr Joey Christianson who was directed to ED for further evaluation of her worsening anxiety. Patient was recently diagnosed with Rodriguez's Palsy and treated with steroid. Daughter at bedside reported worsening anxiety thereafter. She reported compliance with her medication at home. She denied any associated fever or chills. No urinary frequency or dysuria. No significant chest pain, palpitation or shortness of breath. Daughter reported compliance with CPAP machine usage with supplemental oxygen at 2L/min while using CPAP machine. Her initial ED evaluation was rem arkable for right sided Rodriguez's palsy with facial droop, DIONNE with hyperkalemia, and possible steroid induce leukocytosis. She was advised hospitalization to telemetry observation bed for further evaluation and management. Her morbidities include Chronic Atrial Fibrillation, HTN, HLD, CAD, CHF, KORINA, DM type 2, CKD, Adrenal Insufficiency, GERD, Hiatal hernia and Depression. Past Medical History Cardiac Medical History: Reports: Atrial Fibrillation, Congestive Heart Failure, Coronary Artery Disease, Hyperlipidema, Hypertension Pulmonary Medical History: Reports: Asthma, Bronchitis, Pneumonia, Sleep Apnea Neurological Medical History: Denies: Migraine, Seizures Endocrine Medical History: Reports: Diabetes Mellitus Type 2 Renal/ Medical History: Denies: End Stage Renal Disease GI Medical History: Reports: Gastroesophageal Reflux Disease, Hiatal Hernia - Large, with intrathoracic stomach., Ulcerative Colitis Musculoskeltal Medical History: Reports: Arthritis Skin Medical History: Denies: Psoriasis Psychiatric Medical History: Reports: Depression Traumatic Medical History: Denies: Traumatic Brain Injury Hematology: Reports: Anemia Infectious Medical History: Reports: Methicillin-Resistant Staph Aureus Past Surgical History Past Surgical History: Reports: Appendectomy, Hysterectomy, Other - History of right hemicolectomy, questionable history of ulcerative colitis. Social History Lives with: Family Smoking Status: Never Smoker Frequency of Alcohol Use: None Hx Recreational Drug Use: No Drugs: None Hx Prescription Drug Abuse: No Family History Family History: Reviewed & Not Pertinent, CAD, Hyperlipidemia, Hypertension Parental Family History Reviewed: Yes Children Family History Reviewed: Yes Sibling(s) Family History Reviewed.: Yes Medication/Allergy Home Medications: Apixaban [Eliquis] 5 mg PO Q12 03/22/18 Budesonide 0.5 mg NEB BID 03/22/18 Calcium Carbonate [Calcium] 600 mg PO MEALS 03/22/18 Cholecalciferol (Vitamin D3) [Vitamin D3 1000 Unit Tablet] 1,000 unit PO DAILY 03/22/18 Digoxin [Lanoxin 0.125 mg Tablet] 0.125 mg PO MOWEFR@1000 03/22/18 Dronedarone Hydrochloride [Multaq 400 mg Tablet] 400 mg PO BID 03/22/18 Fenofibrate Nanocrystallized [Fenofibrate] 145 mg PO DAILY 03/22/18 Ferrous Sulfate [Ferosul] 325 mg PO DAILY 03/22/18 Furosemide [Lasix] 40 mg PO DAILY 03/22/18 Gabapentin 800 mg PO TID 03/22/18 Hum Insulin NPH/Reg Insulin Hm [Novolin 70-30 100 Unit/ml Vial] 15 unit SQ QHS 03/22/18 Hum Insulin NPH/Reg Insulin Hm [Novolin 70-30 100 Unit/ml Vial] 30 unit SQ DAILY 03/22/18 Lactobacillus Acidophilus [Acidophilus] 1 tab PO DAILY 03/22/18 Levalbuterol HCl [Xopenex Neb 0.63 mg/3 ml Ampul] 0.63 mg NEB Q8H 03/22/18 Levalbuterol Tartrate [Xopenex Hfa] 1 puff IH Q4HP PRN 03/22/18 Losartan Potassium 100 mg PO DAILY 03/22/18 Omeprazole 20 mg PO BID 03/22/18 Cyanocobalamin (Vitamin B-12) [Vitamin B-12 100 mcg Tablet] 100 mcg PO DAILY 03/23/18 Latanoprost [Xalatan 0.005% Oph Soln 2.5 ml] 1 drop OU QHS 03/23/18 Acetylcysteine [Mucomist 10% Neb 400 mg/4 mL Vial] 200 mg IH BID 03/25/18 Prednisone [Deltasone 20 mg Tablet] 20 mg PO DAILY 03/25/18 Vancomycin HCl 750 mg IV DAILY #14 vial.port 04/04/18 Verapamil HCl [Calan Sr 240 mg Tablet.sa] 240 mg PO Q12 #60 tablet.sa 04/07/18 Azithromycin [Zithromax] 250 mg PO DAILY #5 tablet 07/24/18 Prednisone [Deltasone 20 mg Tablet] 3 tab PO DAILY 5 Days tablet 07/24/18 Lorazepam [Ativan 0.5 mg Tablet] 0.5 mg PO Q6HP PRN #10 tab 07/31/18 Prednisone [Deltasone 10 mg Tablet] 10 mg PO ASDIR PRN #21 tablet 07/31/18 Allergies/Adverse Reactions: aspirin [Aspirin] Allergy (Verified 10/17/18 17:22) Hives colchicine Allergy (Verified 10/17/18 17:22) Hives iodine Allergy (Verified 10/17/18 17:22) Hives NSAIDS (Non-Steroidal Anti-Inflamma Allergy (Verified 10/17/18 17:22) Hives Penicillins Allergy (Verified 10/17/18 15:37) Hives shellfish derived Allergy (Verified 10/17/18 17:22) Hives Review of Systems Constitutional: PRESENT: fatigue, weakness Eyes: PRESENT: visual disturbances Ears: PRESENT: hearing changes Nose, Mouth, and Throat: ABSENT: as per HPI, headache(s), mouth pain, sore throat, vertigo, other Cardiovascular: ABSENT: chest pain, dyspnea on exertion, edema, orthropnea, palpitations Respiratory: ABSENT: cough, hemoptysis Gastrointestinal: ABSENT: abdominal pain, constipation, diarrhea, hematemesis, hematochezia, nausea, vomiting Genitourinary: ABSENT: difficulty urinating, dysuria, hematuria Musculoskeletal: ABSENT: joint swelling Integumentary: ABSENT: rash, wounds Neurological: ABSENT: abnormal gait, abnormal speech, confusion, dizziness, focal weakness, syncope Psychiatric: ABSENT: anxiety, depression, homidical ideation, suicidal ideation Endocrine: ABSENT: cold intolerance, heat intolerance, menstrual abnormalities, polydipsia, polyuria Hematologic/Lymphatic: ABSENT: easy bleeding, easy bruising, lymphadenopathy Allergic/Immunologic: ABSENT: seasonal rhinorrhea Physical Exam Vital Signs: Temp Pulse Resp BP Pulse Ox 97.4 F 86 12 159/50 H 99 10/18/18 08:28 10/18/18 08:28 10/18/18 08:28 10/18/18 08:28 10/18/18 08:28 Intake & Output 10/17/18 10/18/18 10/19/18 06:59 06:59 06:59 Intake Total 250 Balance 250 Weight 42.9 kg General appearance: PRESENT: no acute distress Head exam: PRESENT: atraumatic, normocephalic Eye exam: PRESENT: conjunctiva pink, EOMI, PERRLA, other - some degree of ptosis with right sided facial droop from Rodriguez palsy.. ABSENT: scleral icterus Ear exam: PRESENT: normal external ear exam Mouth exam: PRESENT: moist - fairly poor lunch today Teeth exam: PRESENT: edentulous - dentures in use Respiratory exam: PRESENT: clear to auscultation koko, decreased breath sounds - at lung bases Cardiovascular exam: PRESENT: RRR, +S1, +S2. ABSENT: diastolic murmur, systolic murmur Pulses: PRESENT: +1 pedal pulses bilateral Vascular exam: ABSENT: pallor GI/Abdominal exam: PRESENT: normal bowel sounds, soft. ABSENT: distended, gua rding, mass, organolmegaly, rebound, tenderness Rectal exam: PRESENT: deferred Extremities exam: ABSENT: pedal edema Musculoskeletal exam: PRESENT: deformity - related to multiple joints involvement with arthritis Neurological exam: PRESENT: alert, awake, oriented to person, oriented to place, oriented to time, oriented to situation. ABSENT: CN II-XII grossly intact - thee is right sided facial droop from Rodriguez's palsy, motor sensory deficit Psychiatric exam: PRESENT: appropriate affect, normal mood. ABSENT: homicidal ideation, suicidal ideation Skin exam: PRESENT: dry, warm, other - multiple eccymosis on lower extremitries Results Laboratory Results: 10/17/18 18:30 10/17/18 18:30 10/17/18 10/17/18 10/17/18 18:30 18:30 21:05 WBC 20.2 H RBC 3.43 L Hgb 9.2 L Hct 27.8 L MCV 81 MCH 26.7 L MCHC 32.9 RDW 17.3 H Plt Count 316 Seg Neutrophils % Not Reportable Lymphocytes % Not Reportable Monocytes % Not Reportable Eosinophils % Not Reportable Basophils % Not Reportable Absolute Neutrophils Not Reportable Absolute Lymphocytes Not Reportable Absolute Monocytes Not Reportable Absolute Eosinophils Not Reportable Absolute Basophils Not Reportable Sodium 140.5 Potassium 5.6 H Chloride 109 H Carbon Dioxide 17 L Anion Gap 15 BUN 120 H Creatinine 2.85 H Est GFR ( Amer) 19 L Est GFR (Non-Af Amer) 16 L Glucose 199 H Calcium 9.8 Total Bilirubin 0.7 AST 30 ALT 30 Alkaline Phosphatase 35 L Total Protein 6.5 Albumin 4.1 Urine Color STRAW Urine Appearance CLEAR Urine pH 5.0 Ur Specific [place] 1.009 Urine Protein NEGATIVE Urine Glucose (UA) NEGATIVE Urine Ketones NEGATIVE Urine Blood NEGATIVE Urine Nitrite NEGATIVE Ur Leukocyte Esterase SMALL H Urine WBC (Auto) 2 Urine RBC (Auto) 1 10/17/18 10/17/18 10/17/18 18:30 18:30 21:35 Creatine Kinase 106 CK-MB (CK-2) 4.12 Troponin I 0.034 0.026 NT-Pro-B Natriuret Pep 511 H Impressions: Chest X-Ray 10/17/18 17:37 IMPRESSION: Apparent scarring in the right lung. No acute cardiopulmonary findings. Assessment & Plan - Diagnosis (1) Acute kidney injury superimposed on chronic kidney disease Is this a current diagnosis for this admission?: Yes Plan: Hold Lasix and other nephrotoxic medication. Maintain on low rate IV fluid hydration due to history of CHF and monitor renal recovery through indices and urine output. (2) Hyperkalemia Is this a current diagnosis for this admission?: Yes Plan: Monitor potassium level and initiate therapy as indicated. Presently thee is no EKG features for severe hyperkalemia. (3) Chronic kidney disease Qualifiers: Chronic kidney disease stage: stage 4 (severe) Qualified Code(s): N18.4 - Chronic kidney disease, stage 4 (severe) Is this a current diagnosis for this admission?: Yes Plan: Hold Lasix in view of her rapid deterioration. I yosef request nephrology consultation in the next 48 hours if there is no improvement in her renal indices. (4) Paroxysmal atrial fibrillation Is this a current diagnosis for this admission?: Yes Plan: Continue her preadmission medication management. (5) Rodriguez's palsy Is this a current diagnosis for this admission?: Yes Plan: Continue indicated preadmission medication. (6) Yanick disease Is this a current diagnosis for this admission?: Yes Plan: Continue indicated preadmission medication. - Time Time Spent: 50 to 70 Minutes - Inpatient Certification Based on my medical assessment, after consideration of the patient's comorbidities, presenting symptoms, or acuity I expect that the services needed warrant INPATIENT care.: Yes I certify that my determination is in accordance with my understanding of Medicare's requirements for reasonable and necessary INPATIENT services [42 CFR 412.3e].: Yes Medical Necessity: Need Close Monitoring Due to Risk of Patient Decompensation, Need For IV Fluids, Need For Continuous Telemetry Monitoring, Risk of Complication if Not Cared For in Hospital Post Hospital Care: D/C Stack Clerk Documentation - Plan Summary Plan Summary: See covering admitting attending physician orders as per above outlined care plan.
[2018-10-18 14:18] LABS: ABSOLUTE LYMPHOCYTES (AUTO) 1.3 10^3/uL (0.5-4.7); ABSOLUTE MONOCYTES (AUTO) 0.4 10^3/uL (0.1-1.4); ABSOLUTE NEUT (AUTO) 8.3 10^3/uL (1.7-8.2); BASOPHILS % (AUTO) 0.4 % (0-2); EOSINOPHILS % (AUTO) 0.1 % (0-6); HEMATOCRIT 25.6 % (36.0-47.0); HEMOGLOBIN 8.3 g/dL (12.0-15.5); MEAN CORPUSCULAR HEMOGLOBIN 26.3 pg (27.0-33.4); MEAN CORPUSCULAR HGB CONC 32.6 g/dL (32.0-36.0); MEAN CORPUSCULAR VOLUME 81 fl (80-97); MONOCYTES % (AUTO) 4.3 % (3-13); PLATELET COUNT 195 10^3/uL (150-450); RED BLOOD COUNT 3.17 10^6/uL (3.72-5.28); RED CELL DISTRIBUTION WIDTH 17.7 % (11.5-14.0); SEGMENTED NEUTROPHILS % (AUTO) 82.2 % (42-78); TOTAL CELLS COUNTED % (AUTO) 100 %; WHITE BLOOD COUNT 10.1 10^3/uL (4.0-10.5)
[2018-10-18 14:36] LABS: ALANINE AMINOTRANSFERASE 24 U/L (9-52); ALBUMIN 2.9 g/dL (3.5-5.0); ALKALINE PHOSPHATASE 30 U/L (38-126); ASPARTATE AMINO TRANSFERASE 24 U/L (14-36); BILIRUBIN,DIRECT 0.3 mg/dL (0.0-0.4); BILIRUBIN,TOTAL 0.4 mg/dL (0.2-1.3); CALCIUM 8.7 mg/dL (8.4-10.2); GLUCOSE 207 mg/dL (75-110)
[2018-10-18 14:41] LABS: ANION GAP 5 (5-19); CARBON DIOXIDE 22 mmol/L (22-30); CHLORIDE 114 mmol/L (98-107); SODIUM 140.9 mmol/L (137-145)
[2018-10-18 15:03] LABS: BLOOD UREA NITROGEN 95 mg/dL (7-20); POTASSIUM 4.4 mmol/L (3.6-5.0)
[2018-10-18] MEDS ORDERED: LEVALBUTEROL HCL NEB 0.63 MG/3 ML AMPUL NEB PRN (16:19)
[2018-10-18] MEDS ORDERED: (PENDING PHARMACY ID) (Levalbuterol Tartrate [Xopenex Hfa] 1 PUFF) IH PRN (16:19)
[2018-10-18] MEDS ORDERED: ACETAMINOPHEN 325 MG TABLET ONE (17:04)
[2018-10-18] MEDS ORDERED: BUDESONIDE NEB 0.5 MG/2 ML AMPUL NEB SCH (18:00)
[2018-10-18] MEDS: ACETYLCYSTEINE 10% NEB 400 MG/4 ML VIAL NEB SCH ×2 (18:46→20:06)
[2018-10-18] MEDS ORDERED: VALACYCLOVIR HCL 500 MG TABLET PO ONE (19:00)
[2018-10-18] MEDS ORDERED: VALACYCLOVIR HCL 500 MG TABLET ONE (19:52)
[2018-10-18] MEDS: BUSPIRONE HCL 10 MG TABLET PO SCH (19:53)
[2018-10-18] MEDS: GABAPENTIN 400 MG CAPSULE PO SCH (19:53)
[2018-10-18] MEDS: FERROUS SULFATE 325 MG TABLET PO SCH (19:53)
[2018-10-18] MEDS: DRONEDARONE HYDROCHLORIDE 400 MG TABLET PO SCH (19:55)
[2018-10-18] MEDS: BUDESONIDE NEB 0.5 MG/2 ML AMPUL NEB SCH (19:56)
[2018-10-18] MEDS: DILTIAZEM HCL 240 MG CAPSULE.CR PO SCH (19:58)
[2018-10-18] MEDS ORDERED: ACETAMINOPHEN 325 MG TABLET PO PRN (20:00)
[2018-10-18] MEDS: LATANOPROST 0.005% OPH SOLN 2.5 ML OU SCH (21:16)
[2018-10-19 05:26] LABS: HEMATOCRIT 26.5 % (36.0-47.0); HEMOGLOBIN 8.8 g/dL (12.0-15.5); MEAN CORPUSCULAR HGB CONC 33.4 g/dL (32.0-36.0); MEAN CORPUSCULAR VOLUME 81 fl (80-97); RED BLOOD COUNT 3.27 10^6/uL (3.72-5.28); RED CELL DISTRIBUTION WIDTH 17.5 % (11.5-14.0); WHITE BLOOD COUNT 10.8 10^3/uL (4.0-10.5)
[2018-10-19 05:50] LABS: ABSOLUTE LYMPHOCYTES# (MANUAL) 1.1 10^3/uL (0.5-4.7); ABSOLUTE MONOCYTES # (MANUAL) 0.4 10^3/uL (0.1-1.4); ABSOLUTE NEUTROPHILS# (MANUAL) 9.3 10^3/uL (1.7-8.2); BASOPHILS % (MANUAL) 0 % (0-2); EOSINOPHILS % (MANUAL) 0 % (0-6); LYMPHOCYTES % (MANUAL) 8 % (13-45); MONOCYTES % (MANUAL) 4 % (3-13); SEGMENTED NEUTROPHILS % (MAN) 86 % (42-78); TOTAL CELLS COUNTED 100
[2018-10-19 05:52] LABS: ANISOCYTOSIS 1+; POIKILOCYTOSIS SLIGHT; TOXIC GRANULATION SLIGHT
[2018-10-19 05:53] LABS: OVALOCYTES SLIGHT; PLATELET CLUMPS PRESENT; PLATELET COMMENT ADEQUATE; PLATELET COUNT 190 10^3/uL (150-450); SCHISTOCYTES SLIGHT
[2018-10-19 05:57] LABS: ANION GAP 7 (5-19); CALCIUM 9.1 mg/dL (8.4-10.2); CARBON DIOXIDE 19 mmol/L (22-30); CHLORIDE 117 mmol/L (98-107); GLUCOSE 138 mg/dL (75-110); POTASSIUM 4.2 mmol/L (3.6-5.0); SODIUM 142.7 mmol/L (137-145)
[2018-10-19 06:27] LABS: BLOOD UREA NITROGEN 63 mg/dL (7-20)
[2018-10-19] MEDS: BUDESONIDE NEB 0.5 MG/2 ML AMPUL NEB SCH ×2 (08:03→20:03)
[2018-10-19] MEDS: LEVALBUTEROL HCL NEB 0.63 MG/3 ML AMPUL NEB PRN ×2 (08:03→20:03)
[2018-10-19] MEDS: ACETYLCYSTEINE 10% NEB 400 MG/4 ML VIAL NEB SCH ×2 (08:03→20:03)
[2018-10-19] MEDS: BUSPIRONE HCL 10 MG TABLET PO SCH ×2 (09:39→17:32)
[2018-10-19] MEDS: DRONEDARONE HYDROCHLORIDE 400 MG TABLET PO SCH ×2 (09:45→17:34)
[2018-10-19] MEDS: DILTIAZEM HCL 240 MG CAPSULE.CR PO SCH ×2 (09:50→17:34)
[2018-10-19] MEDS: VALACYCLOVIR HCL 500 MG TABLET PO SCH ×3 (09:59→17:34)
[2018-10-19] MEDS: GABAPENTIN 400 MG CAPSULE PO SCH ×3 (09:59→17:34)
[2018-10-19] MEDS: FERROUS SULFATE 325 MG TABLET PO SCH ×2 (09:59→17:34)
[2018-10-19] MEDS ORDERED: IRON PO SCH (10:00)
[2018-10-19] MEDS ORDERED: FOLIC ACID PO SCH (10:00)
[2018-10-19] MEDS ORDERED: MULTIVIT MIN36 PO SCH (10:00)
--- NOTE | 2018-10-19 11:17 | PDOC PROGRESS REPORT ---
Subjective Progress Note for:: 10/19/18 Subjective:: Patient had episodes of asymptomatic PVC on her cafeteria monitor since last clinical evaluation. No reported chest pain. Daughter at bedside reported supervisor riveting request that patient should remain on Prednisone for life. She requested for Drs Mitral and Curseen consultation during this bedside visit. Tolerating oral feeding. No reported fever or chills. Reason For Visit: HYPERKALEMIA Physical Exam Vital Signs: Temp Pulse Resp BP Pulse Ox 97.9 F 87 18 151/55 H 98 10/19/18 07:40 10/19/18 08:07 10/19/18 08:07 10/19/18 07:40 10/19/18 08:07 Intake & Output 10/18/18 10/19/18 10/20/18 06:59 06:59 06:59 Intake Total 250 1372 Balance 250 1372 Weight 42.9 kg Physical Exam: General appearance: PRESENT: no acute distress Head exam: PRESENT: atraumatic, normocephalic Eye exam: PRESENT: conjunctiva pink, EOMI, PERRLA, right sided facial droop from Rodriguez palsy. ABSENT: pallor, scleral icterus Ear exam: PRESENT: normal external ear exam Mouth exam: PRESENT: moist - fairly poor lunch today Teeth exam: PRESENT: edentulous - dentures in use Respiratory exam: PRESENT: clear to auscultation koko, decreased breath sounds - at lung bases Cardiovascular exam: PRESENT: RRR, +S1, +S2. ABSENT: diastolic murmur, systolic murmur GI/Abdominal exam: PRESENT: normal bowel sounds, soft. ABSENT: distended, guarding, mass, organomegaly, rebound, tenderness Extremities exam: ABSENT: pedal edema Musculoskeletal exam: PRESENT: deformity - related to multiple joints involvement with arthritis Neurological exam: PRESENT: alert, awake, oriented to person, oriented to place, oriented to time, oriented to situation. ABSENT: CN II-XII grossly intact - thee is right sided facial droop from Rodriguez's palsy, motor sensory deficit Psychiatric exam: PRESENT: appropriate affect, normal mood. ABSENT: homicidal ideation, suicidal ideation Skin exam: PRESENT: dry, warm, other - multiple ecchymosis on lower extremities Results Laboratory Results: 10/19/18 04:42 10/19/18 04:42 01/05/19 01/05/19 01/06/19 13:57 13:57 02:00 WBC 10.1 RBC 3.17 L Hgb 8.3 L Hct 25.6 L MCV 81 MCH 26.3 L MCHC 32.6 RDW 17.7 H Plt Count 195 Seg Neutrophils % 82.2 H Lymphocytes % 13.0 Monocytes % 4.3 Eosinophils % 0.1 Basophils % 0.4 Absolute Neutrophils 8.3 H Absolute Lymphocytes 1.3 Absolute Monocytes 0.4 Absolute Eosinophils 0.0 Absolute Basophils 0.0 Sodium 140.9 Potassium 4.4 D Chloride 114 H Carbon Dioxide 22 Anion Gap 5 BUN 95 H D Creatinine 2.00 H Est GFR ( Amer) 29 L Est GFR (Non-Af Amer) 24 L Glucose 207 H Calcium 8.7 Magnesium Total Bilirubin 0.4 AST 24 ALT 24 Alkaline Phosphatase 30 L Total Protein 5.0 L Albumin 2.9 L Stool Occult Blood POSITIVE 10/19/18 10/19/18 10/19/18 04:42 04:42 04:42 WBC 10.8 H RBC 3.27 L Hgb 8.8 L Hct 26.5 L MCV 81 MCH 27.0 MCHC 33.4 RDW 17.5 H Plt Count 190 Seg Neutrophils % Not Reportable Lymphocytes % Not Reportable Monocytes % Not Reportable Eosinophils % Not Reportable Basophils % Not Reportable Absolute Neutrophils Not Reportable Absolute Lymphocytes Not Reportable Absolute Monocytes Not Reportable Absolute Eosinophils Not Reportable Absolute Basophils Not Reportable Sodium 142.7 Potassium 4.2 Chloride 117 H Carbon Dioxide 19 L Anion Gap 7 BUN 63 H D Creatinine 1.37 H Est GFR ( Amer) 45 L Est GFR (Non-Af Amer) 37 L Glucose 138 H Calcium 9.1 Magnesium 2.3 Total Bilirubin AST ALT Alkaline Phosphatase Total Protein Albumin Stool Occult Blood 10/17/18 10/17/18 10/17/18 18:30 18:30 21:35 Creatine Kinase 106 CK-MB (CK-2) 4.12 Troponin I 0.034 0.026 NT-Pro-B Natriuret Pep 511 H Impressions: Chest X-Ray 10/17/18 17:37 IMPRESSION: Apparent scarring in the right lung. No acute cardiopulmonary findings. Assessment & Plan - Diagnosis (1) Acute kidney injury superimposed on chronic kidney disease Is this a current diagnosis for this admission?: Yes (2) Hyperkalemia Is this a current diagnosis for this admission?: Yes (3) Chronic kidney disease Qualifiers: Chronic kidney disease stage: stage 4 (severe) Qualified Code(s): N18.4 - Chronic kidney disease, stage 4 (severe) Is this a current diagnosis for this admission?: Yes (4) Paroxysmal atrial fibrillation Is this a current diagnosis for this admission?: Yes (5) Rodriguez's palsy Is this a current diagnosis for this admission?: Yes (6) [place] disease Is this a current diagnosis for this admission?: Yes - Time Time Spent with patient: 25-34 minutes Medications reviewed and adjusted accordingly: Yes Anticipated discharge: Home with Homehealth Within: Other - Inpatient Certification Based on my medical assessment, after consideration of the patient's comorbidities, presenting symptoms, or acuity I expect that the services needed warrant INPATIENT care.: Yes I certify that my determination is in accordance with my understanding of Medicare's requirements for reasonable and necessary INPATIENT services [42 CFR 412.3e].: Yes Medical Necessity: Need Close Monitoring Due to Risk of Patient Decompensation, Need For IV Fluids, Need For Continuous Telemetry Monitoring, Risk of Complication if Not Cared For in Hospital Post Hospital Care: D/C Engineering Technician Documentation - Plan Summary Plan Summary: Obtain serum digoxin level. Continue other current medication management. Request Cardiology and pulmonary consults as per daughter's request. Change her admission status to full inpatient at this time.
[2018-10-19] MEDS: CALCIUM CARBONATE 500 MG TABLET PO SCH (11:33)
[2018-10-19] MEDS: PREDNISONE 20 MG TABLET PO SCH (11:34)
[2018-10-19] MEDS: CHOLECALCIFEROL (D3) 1,000 UNIT TABLET PO SCH (11:34)
[2018-10-19] MEDS: CYANOCOBALAMIN (VITAMIN B-12) 1,000 MCG TABLET PO SCH (11:34)
[2018-10-19 15:10] LABS: ARTERIAL BLOOD BASE EXCESS -6.6 mmol/L; ARTERIAL BLOOD H2CO3 0.79 mmol/L (1.05-1.35); ARTERIAL BLOOD HCO3 16.6 mmol/L (20-24); ARTERIAL BLOOD O2 SATURATION 97.3 % (94-98); ARTERIAL BLOOD PCO2 26.2 mmHg (35-45); ARTERIAL BLOOD PH 7.42 (7.35-7.45); ARTERIAL BLOOD TOTAL CO2 17.4 mmol/L (21-25)
[2018-10-19 15:11] LABS: ARTERIAL BLOOD FIO2 2L
[2018-10-19] MEDS: LATANOPROST 0.005% OPH SOLN 2.5 ML OU SCH (21:15)
[2018-10-20 00:45] LABS: ABSOLUTE BASOPHILS # (AUTO) 0.1 10^3/uL (0.0-0.2); ABSOLUTE LYMPHOCYTES (AUTO) 1.1 10^3/uL (0.5-4.7); ABSOLUTE MONOCYTES (AUTO) 0.4 10^3/uL (0.1-1.4); ABSOLUTE NEUT (AUTO) 10.8 10^3/uL (1.7-8.2); BASOPHILS % (AUTO) 0.6 % (0-2); HEMATOCRIT 25.6 % (36.0-47.0); HEMOGLOBIN 8.2 g/dL (12.0-15.5); MEAN CORPUSCULAR HEMOGLOBIN 26.2 pg (27.0-33.4); MEAN CORPUSCULAR HGB CONC 32.3 g/dL (32.0-36.0); MEAN CORPUSCULAR VOLUME 81 fl (80-97); MONOCYTES % (AUTO) 3.5 % (3-13); PLATELET COUNT 190 10^3/uL (150-450); RED BLOOD COUNT 3.14 10^6/uL (3.72-5.28); RED CELL DISTRIBUTION WIDTH 17.5 % (11.5-14.0); SEGMENTED NEUTROPHILS % (AUTO) 86.9 % (42-78); TOTAL CELLS COUNTED % (AUTO) 100 %; WHITE BLOOD COUNT 12.4 10^3/uL (4.0-10.5)
[2018-10-20 00:54] LABS: ALANINE AMINOTRANSFERASE 29 U/L (9-52); ALBUMIN 2.8 g/dL (3.5-5.0); ALKALINE PHOSPHATASE 30 U/L (38-126); ANION GAP 11 (5-19); ASPARTATE AMINO TRANSFERASE 31 U/L (14-36); BILIRUBIN,DIRECT 0.4 mg/dL (0.0-0.4); BILIRUBIN,TOTAL 0.6 mg/dL (0.2-1.3); BLOOD UREA NITROGEN 51 mg/dL (7-20); CALCIUM 9.4 mg/dL (8.4-10.2); CARBON DIOXIDE 17 mmol/L (22-30); CHLORIDE 115 mmol/L (98-107); GLUCOSE 250 mg/dL (75-110); POTASSIUM 4.5 mmol/L (3.6-5.0); SODIUM 142.6 mmol/L (137-145); TOTAL PROTEIN 4.9 g/dL (6.3-8.2)
[2018-10-20] MEDS: ACETYLCYSTEINE 10% NEB 400 MG/4 ML VIAL NEB SCH ×2 (08:34→21:24)
[2018-10-20] MEDS: LEVALBUTEROL HCL NEB 0.63 MG/3 ML AMPUL NEB PRN (08:35)
[2018-10-20] MEDS: BUDESONIDE NEB 0.5 MG/2 ML AMPUL NEB SCH ×2 (08:35→21:24)
[2018-10-20] MEDS ORDERED: DIGOXIN 0.125 MG TABLET PO SCH (10:00)
[2018-10-20] MEDS: DILTIAZEM HCL 240 MG CAPSULE.CR PO SCH ×2 (10:24→18:50)
[2018-10-20] MEDS: FERROUS SULFATE 325 MG TABLET PO SCH ×2 (10:24→18:50)
[2018-10-20] MEDS: CALCIUM CARBONATE 500 MG TABLET PO SCH (10:24)
[2018-10-20] MEDS: POTASSIUM CHLORIDE 10 MEQ CAPSULE.ER PO SCH (10:26)
[2018-10-20] MEDS: GABAPENTIN 400 MG CAPSULE PO SCH ×3 (10:26→18:50)
[2018-10-20] MEDS: PREDNISONE 20 MG TABLET PO SCH (10:26)
[2018-10-20] MEDS: CYANOCOBALAMIN (VITAMIN B-12) 1,000 MCG TABLET PO SCH (10:26)
[2018-10-20] MEDS: VALACYCLOVIR HCL 500 MG TABLET PO SCH ×3 (10:27→18:50)
[2018-10-20] MEDS: DRONEDARONE HYDROCHLORIDE 400 MG TABLET PO SCH ×2 (10:27→18:50)
[2018-10-20] MEDS: CHOLECALCIFEROL (D3) 1,000 UNIT TABLET PO SCH (10:27)
[2018-10-20] MEDS ORDERED: LATANOPROST 0.005% OPH SOLN 2.5 ML OU ONE (11:00)
[2018-10-20] MEDS: BUSPIRONE HCL 10 MG TABLET PO SCH ×2 (11:17→18:51)
--- NOTE | 2018-10-20 14:01 | PDOC PROGRESS REPORT ---
Subjective Progress Note for:: 10/20/18 Subjective:: Patient was recently diagnosed with a Rodriguez's palsy CT of the head was negative patient was started on a prednisone and patient was started on the Valtrex Patient is came to the office with the increasing more anxiety and hearing the voices and suggest to the emergency department with multiple other issues In the ER patient was diagnosed with acute renal failure on chronic kidney disease and patient was admitting in the hospital Dr. 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 Todd the arcade game technician today to further evaluate Patient is otherwise denied any chest pain denied any shortness of the breath Patient using the CPAP at night and currently see her Dr. Patino At this point.does not have any concerns at the bedside Reason For Visit: DIONNE WITH HYPERKALEMIA Physical Exam Vital Signs: Temp Pulse Resp BP Pulse Ox 99.0 F 93 22 H 169/49 H 99 10/20/18 11:17 10/20/18 11:17 10/20/18 11:17 10/20/18 11:17 10/20/18 11:17 Intake & Output 10/19/18 10/20/18 10/21/18 06:59 06:59 06:59 Intake Total 1372 50 Output Total 700 Balance 1372 50 -700 General appearance: PRESENT: no acute distress Head exam: PRESENT: atraumatic, normocephalic Eye exam: PRESENT: conjunctiva pink, EOMI, PERRLA. ABSENT: scleral icterus Ear exam: PRESENT: normal external ear exam Mouth exam: PRESENT: moist, tongue midline Neck exam: PRESENT: full ROM. ABSENT: carotid bruit, JVD, lymphadenopathy, thyromegaly Respiratory exam: PRESENT: clear to auscultation koko Cardiovascular exam: PRESENT: RRR. ABSENT: diastolic murmur, rubs, systolic murmur Pulses: PRESENT: normal dorsalis pedis pul, +2 pedal pulses bilateral Vascular exam: PRESENT: normal capillary refill GI/Abdominal exam: PRESENT: normal bowel sounds, soft. ABSENT: distended, guarding, mass, organolmegaly, rebound, tenderness Rectal exam: PRESENT: deferred Extremities exam: ABSENT: pedal edema Neurological exam: PRESENT: alert, awake, oriented to person, oriented to place, oriented to time, oriented to situation, CN II-XII grossly intact. ABSENT: motor sensory deficit Additional comments: Patient had a right-sided Rodriguez's palsy Psychiatric exam: PRESENT: appropriate affect, normal mood. ABSENT: homicidal ideation, suicidal ideation Skin exam: PRESENT: dry, intact, warm. ABSENT: cyanosis, rash Results Laboratory Results: 10/20/18 00:28 10/20/18 00:28 10/19/18 10/20/18 10/20/18 15:00 00:28 00:28 WBC 12.4 H RBC 3.14 L Hgb 8.2 L Hct 25.6 L MCV 81 MCH 26.2 L MCHC 32.3 RDW 17.5 H Plt Count 190 Seg Neutrophils % 86.9 H Lymphocytes % 9.0 L Monocytes % 3.5 Eosinophils % 0.0 Basophils % 0.6 Absolute Neutrophils 10.8 H Absolute Lymphocytes 1.1 Absolute Monocytes 0.4 Absolute Eosinophils 0.0 Absolute Basophils 0.1 Carbonic Acid 0.79 L HCO3/H2CO3 Ratio 21:1 ABG pH 7.42 ABG pCO2 26.2 L ABG pO2 92.0 ABG HCO3 16.6 L ABG O2 Saturation 97.3 ABG Base Excess -6.6 FiO2 2L Sodium 142.6 Potassium 4.5 Chloride 115 H Carbon Dioxide 17 L Anion Gap 11 BUN 51 H Creatinine 1.30 H Est GFR ( Amer) 48 L Est GFR (Non-Af Amer) 40 L Glucose 250 H Calcium 9.4 Total Bilirubin 0.6 AST 31 ALT 29 Alkaline Phosphatase 30 L Total Protein 4.9 L Albumin 2.8 L 10/17/18 21:05 Clean Catch Midstream Urine Culture - Final Mixed Urogenital Arlette 10/17/18 10/17/18 10/17/18 18:30 18:30 21:35 Creatine Kinase 106 CK-MB (CK-2) 4.12 Troponin I 0.034 0.026 NT-Pro-B Natriuret Pep 511 H Impressions: Chest X-Ray 10/17/18 17:37 IMPRESSION: Apparent scarring in the right lung. No acute cardiopulmonary findings. 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 fib consult Dr. Todd for further evaluation COPD and a chronic persistent asthma consult with Dr. Patino Hypertension's Dementia Anxiety disorder We increased the BuSpar 10 mg p.o. twice a day check the blood work in the morning continues to current medications we will get the physical therapy evaluations
--- NOTE | 2018-10-20 14:04 | PDOC CONSULTATION ---
Consultation Consult Date: 10/20/18 Attending physician:: GARY DAVID Consult reason:: Cough/dyspnea History of Present Illness Admission Date/PCP: 10/19/18 11:09 KEILY CHRISTIANSON MD History of Present Illness: JESSY PARKER is a 77 year old female, presented to the ED with facial pain and weakness recently diagnosed with Rodriguez's palsy and started on prednisone she also has KORINA requiring CPAP and supplemental oxygen CAD CHF hypertension diabetes GERD chronic atrial fibrillation. Nothing diarrhea fevers chills has some chronic rhinorrhea and also sore throat chest pain edemaPoor po intake very weak. Past Medical History Cardiac Medical History: Reports: Atrial Fibrillation, Congestive Heart Failure, Coronary Artery Disease, Hyperlipidema, Hypertension Pulmonary Medical History: Reports: Asthma, Bronchitis, Pneumonia, Sleep Apnea Neurological Medical History: Denies: Migraine, Seizures Endocrine Medical History: Reports: Diabetes Mellitus Type 2 Renal/ Medical History: Denies: End Stage Renal Disease GI Medical History: Reports: Gastroesophageal Reflux Disease, Hiatal Hernia - Large, with intrathoracic stomach., Ulcerative Colitis Musculoskeltal Medical History: Reports: Arthritis Skin Medical History: Denies: Psoriasis Psychiatric Medical History: Reports: Depression Traumatic Medical History: Denies: Traumatic Brain Injury Hematology: Reports: Anemia Infectious Medical History: Reports: Methicillin-Resistant Staph Aureus Past Surgical History Past Surgical History: Reports: Appendectomy, Hysterectomy, Other - History of right hemicolectomy, questionable history of ulcerative colitis. Social History Information Source: Relative, [facility] Records Lives with: Family Smoking Status: Never Smoker Frequency of Alcohol Use: None Hx Recreational Drug Use: No Drugs: None Hx Prescription Drug Abuse: No Do you have pets?: No Have you had any respiratory illnesses as a child?: No Have you been exposed to any sick contacts recently?: No Have you travelled outside of [place] in the past 12 months?: No Family History Family History: CAD, Hyperlipidemia, Hypertension Parental Family History Reviewed: Yes Children Family History Reviewed: Yes Sibling(s) Family History Reviewed.: Yes Medication/Allergy Home Medications: Apixaban [Eliquis] 5 mg PO MOWEFR 03/22/18 Budesonide 0.5 mg NEB BID 03/22/18 Calcium Carbonate [Calcium] 600 mg PO DAILY 03/22/18 Cholecalciferol (Vitamin D3) [Vitamin D3 1000 Unit Tablet] 1,000 unit PO DAILY 03/22/18 Digoxin [Lanoxin 0.125 mg Tablet] 0.125 mg PO MOWEFR@1000 03/22/18 Dronedarone Hydrochloride [Multaq 400 mg Tablet] 400 mg PO BID 03/22/18 Fenofibrate Nanocrystallized [Fenofibrate] 145 mg PO DAILY 03/22/18 Ferrous Sulfate [Ferosul] 325 mg PO BID 03/22/18 Furosemide [Lasix] 40 mg PO MOTUWETHFR 03/22/18 Gabapentin 800 mg PO TID 03/22/18 Hum Insulin NPH/Reg Insulin Hm [Novolin 70-30 100 Unit/ml Vial] 0 unit SQ .SLI DING SCALE 03/22/18 Levalbuterol HCl [Xopenex Neb 0.63 mg/3 ml Ampul] 0.63 mg NEB PRN PRN 03/22/18 Levalbuterol Tartrate [Xopenex Hfa] 1 puff IH PRN PRN 03/22/18 Losartan Potassium 100 mg PO DAILY 03/22/18 Omeprazole 20 mg PO BID 03/22/18 Cyanocobalamin (Vitamin B-12) [Vitamin B-12 100 mcg Tablet] 1,000 mcg PO DAILY 03/23/18 Latanoprost [Xalatan 0.005% Oph Soln 2.5 ml] 1 drop OU QHS 03/23/18 Acetylcysteine [Mucomist 10% Neb 400 mg/4 mL Vial] 200 mg IH BID 03/25/18 Prednisone [Deltasone 20 mg Tablet] 20 mg PO DAILY 03/25/18 Acetaminophen [Tylenol 325 mg Tablet] 650 mg PO BID 10/18/18 Buspirone HCl [Buspar 5 mg Tablet] 1 tab PO BID 10/18/18 Diltiazem HCl [Diltiazem 24Hr ER] 240 mg PO BID 10/18/18 Ipratropium [place] [Atrovent 0.02% Neb 0.5 mg/2.5 ml Ampul] 0.5 mg NEB PRN PRN 10/18/18 Multivit-Min36/Iron/Folic Acid [Geritol Complete Tablet] 1 each PO DAILY 10/18/18 Potassium Chloride [Klor-Con 10 Meq Capsule ER] 10 meq PO MOWEFR 10/18/18 Sulfamethoxazole/Trimethoprim [Bactrim 400-80 mg Tablet] 1 each PO MOWEFR 10/18/18 Valacyclovir HCl [Valtrex] 1,000 mg PO TID 10/18/18 Allergies/Adverse Reactions: aspirin [Aspirin] Allergy (Verified 10/17/18 17:22) Hives colchicine Allergy (Verified 10/17/18 17:22) Hives iodine Allergy (Verified 10/17/18 17:22) Hives NSAIDS (Non-Steroidal Anti-Inflamma Allergy (Verified 10/17/18 17:22) Hives Penicillins Allergy (Verified 10/17/18 15:37) Hives shellfish derived Allergy (Verified 10/17/18 17:22) Hives Review of Systems ROS unobtainable: Due to mental status Physical Exam Vital Signs: Temp Pulse Resp BP Pulse Ox 99.0 F 93 22 H 169/49 H 99 10/20/18 11:17 10/20/18 11:17 10/20/18 11:17 10/20/18 11:17 10/20/18 11:17 Intake & Output 10/19/18 10/20/18 10/21/18 06:59 06:59 06:59 Intake Total 1372 50 Output Total 700 Balance 1372 50 -700 General appearance: PRESENT: disheveled, hard of hearing, well-developed, well-nourished Head exam: PRESENT: atraumatic, normocephalic Eye exam: PRESENT: conjunctiva pale, EOMI. ABSENT: nystagmus, periorbital swelling, scleral icterus Mouth exam: PRESENT: dry mucosa, neck supple, tongue midline Teeth exam: PRESENT: poor dentation Neck exam: ABSENT: carotid bruit, JVD, lymphadenopathy, thyromegaly, tracheal deviation, tracheostomy Respiratory exam: PRESENT: decreased breath sounds, prolonged expiratory phas, rales, rhonchi, unlabored. ABSENT: retraction, stridor, tachypnea Cardiovascular exam: PRESENT: irregular rhythm Pulses: PRESENT: normal radial pulses GI/Abdominal exam: PRESENT: soft. ABSENT: tenderness Extremities exam: PRESENT: pedal edema. ABSENT: calf tenderness, clubbing, joint swelling Musculoskeletal exam: ABSENT: ambulatory, deformity, dislocation Neurological exam: PRESENT: altered, awake Skin exam: PRESENT: dry, warm Results Laboratory Results: 10/20/18 00:28 10/20/18 00:28 10/19/18 10/20/1810/20/19 15:00 00:28 00:28 WBC 12.4 H RBC 3.14 L Hgb 8.2 L Hct 25.6 L MCV 81 MCH 26.2 L MCHC 32.3 RDW 17.5 H Plt Count 190 Seg Neutrophils % 86.9 H Lymphocytes % 9.0 L Monocytes % 3.5 Eosinophils % 0.0 Basophils % 0.6 Absolute Neutrophils 10.8 H Absolute Lymphocytes 1.1 Absolute Monocytes 0.4 Absolute Eosinophils 0.0 Absolute Basophils 0.1 Carbonic Acid 0.79 L HCO3/H2CO3 Ratio 21:1 ABG pH 7.42 ABG pCO2 26.2 L ABG pO2 92.0 ABG HCO3 16.6 L ABG O2 Saturation 97.3 ABG Base Excess -6.6 FiO2 2L Sodium 142.6 Potassium 4.5 Chloride 115 H Carbon Dioxide 17 L Anion Gap 11 BUN 51 H Creatinine 1.30 H Est GFR ( Amer) 48 L Est GFR (Non-Af Amer) 40 L Glucose 250 H Calcium 9.4 Total Bilirubin 0.6 AST 31 ALT 29 Alkaline Phosphatase 30 L Total Protein 4.9 L Albumin 2.8 L 10/17/18 21:05 Clean Catch Midstream Urine Culture - Final Mixed Urogenital Arlette 10/17/18 10/17/18 10/17/18 18:30 18:30 21:35 Creatine Kinase 106 CK-MB (CK-2) 4.12 Troponin I 0.034 0.026 NT-Pro-B Natriuret Pep 511 H Impressions: Chest X-Ray 10/17/18 17:37 IMPRESSION: Apparent scarring in the right lung. No acute cardiopulmonary findings. Assessment & Plan - Diagnosis (1) Rodriguez's palsy Is this a current diagnosis for this admission?: Yes Plan: Continue prednisone (2) Acute chronic obstructive pulmonary disease with respiratory failure Is this a current diagnosis for this admission?: Yes Plan: Supplemental oxygen with CPAP Laba plus lama plus inhaled corticosteroid (3) Hiatal hernia with GERD Is this a current diagnosis for this admission?: Yes Plan: Head of bed elevated continue PPI
[2018-10-20] MEDS ORDERED: APIXABAN 5 MG TABLET PO SCH (16:19)
--- NOTE | 2018-10-20 16:44 | EKG REPORT ---
SEVERITY:- ABNORMAL ECG - SINUS RHYTHM LEFT AXIS DEVIATION NONSPECIFIC T ABNORMALITIES, DIFFUSE LEADS : Confirmed by: Toni Cheung MD 20-Oct-2018 16:43:26
[2018-10-20] MEDS ORDERED: (PENDING PHARMACY ID) (Sulfamethoxazole/Trimethoprim [Bactrim 400-80 Mg Tablet] 1 EACH) PO SCH (16:45)
[2018-10-20] MEDS: NORMAL SALINE 1000 ML 1,000 ML IV PRN (16:50)
[2018-10-20] MEDS: LANSOPRAZOLE 15 MG TAB.RAP.DR PO SCH (18:50)
--- NOTE | 2018-10-20 23:39 | PDOC PROGRESS REPORT ---
Subjective Progress Note for:: 10/20/18 Subjective:: Patient was seen on morning rounds. She is noted to be feeling better. She was noted to have increased VPCs yesterday but today they have resolved. Patient looks much more debilitated than when she was recently seen in the office. Patient has been noted to have bells palsy is on the right side. Increased VPCs Reason For Visit: DIONNE WITH HYPERKALEMIA Physical Exam Vital Signs: Temp Pulse Resp BP Pulse Ox 97.7 F 81 16 154/47 H 100 10/20/18 20:27 10/20/18 20:27 10/20/18 20:27 10/20/18 20:27 10/20/18 20:27 Intake & Output 10/19/18 10/20/18 10/21/18 06:59 06:59 06:59 Intake Total 1372 1050 1400 Output Total 700 Balance 1372 1050 700 Exam: GEN: patient looks debilitated, patient alert oriented x2. Appearance and grooming WNL HEENT : Eyes: MARIBETH, Ears: No significant abnormalities, Nose: No significant abnormalities. normocephalic atraumatic. Flat midface (-), Receding chin (-) ORAL : Mallampati class IV, narrow arched palate (-) Tonsils: Not enlarged. NECK: no thyromegaly, no masses, trachea is central, JVD is not elevated, carotids 2+ with bruit (-) RESP: lungs clear, no rales, wheezes or rhonchi, nonlabored, accessory muscles of respiration use (-). CV: NL S1 and S2. No significant murmurs noted, no gallop, no extra sounds, no clicks, no rub noted. GI: abd NT to palpation, no masses, bowel sounds present, no guarding or rigidity noted. EXT: no clubbing, (-) cyanosis, edema (-), perpheral pulses diminished (no) MUSC/SKEL: no acute joint swelling noted. Muscle strength is generally intact. NEURO: no significant focal neurological deficits are note, sensation grossly intact, AO x 2, lower motor neuron weakness right side face. PSYCH: NL mood and affect. judgment and insight noted to be intact. SKIN: (-) rash, (-)Signs of pruritus, (-) other significant abnormality Results Laboratory Results: 10/20/18 00:28 10/20/18 00:28 10/20/18 10/20/18 00:28 00:28 WBC 12.4 H RBC 3.14 L Hgb 8.2 L Hct 25.6 L MCV 81 MCH 26.2 L MCHC 32.3 RDW 17.5 H Plt Count 190 Seg Neutrophils % 86.9 H Lymphocytes % 9.0 L Monocytes % 3.5 Eosinophils % 0.0 Basophils % 0.6 Absolute Neutrophils 10.8 H Absolute Lymphocytes 1.1 Absolute Monocytes 0.4 Absolute Eosinophils 0.0 Absolute Basophils 0.1 Sodium 142.6 Potassium 4.5 Chloride 115 H Carbon Dioxide 17 L Anion Gap 11 BUN 51 H Creatinine 1.30 H Est GFR ( Amer) 48 L Est GFR (Non-Af Amer) 40 L Glucose 250 H Calcium 9.4 Total Bilirubin 0.6 AST 31 ALT 29 Alkaline Phosphatase 30 L Total Protein 4.9 L Albumin 2.8 L 10/17/18 10/17/18 10/17/18 18:30 18:30 21:35 Creatine Kinase 106 CK-MB (CK-2) 4.12 Troponin I 0.034 0.026 NT-Pro-B Natriuret Pep 511 H Impressions: Chest X-Ray 10/17/18 17:37 IMPRESSION: Apparent scarring in the right lung. No acute cardiopulmonary findings. Assessment & Plan - Diagnosis (1) Acute chronic obstructive pulmonary disease with respiratory failure Is this a current diagnosis for this admission?: Yes (2) Congestive heart failure Qualifiers: Heart failure type: diastolic Heart failure chronicity: chronic Qualified Code(s): I50.32 - Chronic diastolic (congestive) heart failure Is this a current diagnosis for this admission?: Yes (3) Coronary artery disease Qualifiers: Coronary Disease-Associated Artery/Lesion type: unspecified vessel or lesion type [place] vs. transplanted heart: [place] heart Is this a current diagnosis for this admission?: Yes (4) Hyperkalemia Is this a current diagnosis for this admission?: Yes (5) DIONNE (acute kidney injury) Is this a current diagnosis for this admission?: Yes (6) Chronic kidney disease Qualifiers: Chronic kidney disease stage: stage 4 (severe) Qualified Code(s): N18.4 - Chronic kidney disease, stage 4 (severe) Is this a current diagnosis for this admission?: Yes (7) [place] disease Is this a current diagnosis for this admission?: Yes - Notes Notes: Increase ventricular ectopy: electrolytes were noted to be within normal limit. ABG showed no significant hypoxemia. This morning there are noted to be improved. Acute on chronic respiratory failure: patient predominantly Harith hypoxemia. Currently stable. Continue oxygen supplementation and nocturnal non-invasive ventilation. Congestive heart failure: currently compensated. Recommend starting lasix from tomorrow morning. Recommend 40 mg PO daily with close monitoring of electrolytes, renal functions as well as volume status. CAD: patient is clinically stable. Hyperkalaemia: currently resolved Chronic kidney disease: stable. Yanick's disease: continue prednisone and/or other steroid replacement. 2D echo: results were reviewed. It shows normal LVEF, great two diastolic dysfunction, mild to moderate mitral regurgitation, mild to moderate pulmonary hypertension. - Time Time with patient: Greater than 35 minutes Medications reviewed and adjusted accordingly: Yes
[2018-10-21] MEDS: LATANOPROST 0.005% OPH SOLN 2.5 ML OU SCH ×2 (05:40→21:56)
[2018-10-21 06:18] LABS: ABSOLUTE EOSINOPHILS # (AUTO) 0.1 10^3/uL (0.0-0.6); ABSOLUTE LYMPHOCYTES (AUTO) 1.4 10^3/uL (0.5-4.7); ABSOLUTE MONOCYTES (AUTO) 0.5 10^3/uL (0.1-1.4); ABSOLUTE NEUT (AUTO) 9.5 10^3/uL (1.7-8.2); BASOPHILS % (AUTO) 0.2 % (0-2); EOSINOPHILS % (AUTO) 0.5 % (0-6); HEMATOCRIT 23.3 % (36.0-47.0); LYMPHOCYTES % (AUTO) 12.5 % (13-45); MEAN CORPUSCULAR HEMOGLOBIN 26.7 pg (27.0-33.4); MEAN CORPUSCULAR HGB CONC 33.2 g/dL (32.0-36.0); MEAN CORPUSCULAR VOLUME 80 fl (80-97); MONOCYTES % (AUTO) 4.6 % (3-13); PLATELET COUNT 177 10^3/uL (150-450); RED CELL DISTRIBUTION WIDTH 17.4 % (11.5-14.0); SEGMENTED NEUTROPHILS % (AUTO) 82.2 % (42-78); TOTAL CELLS COUNTED % (AUTO) 100 %; WHITE BLOOD COUNT 11.6 10^3/uL (4.0-10.5)
[2018-10-21 06:21] LABS: HEMOGLOBIN 7.7 g/dL (12.0-15.5)
[2018-10-21 06:39] LABS: ANION GAP 9 (5-19); BLOOD UREA NITROGEN 37 mg/dL (7-20); CALCIUM 9.1 mg/dL (8.4-10.2); CARBON DIOXIDE 17 mmol/L (22-30); CHLORIDE 115 mmol/L (98-107); GLUCOSE 88 mg/dL (75-110); POTASSIUM 4.3 mmol/L (3.6-5.0)
[2018-10-21] MEDS: ACETYLCYSTEINE 10% NEB 400 MG/4 ML VIAL NEB SCH ×2 (08:30→20:27)
[2018-10-21] MEDS: BUDESONIDE NEB 0.5 MG/2 ML AMPUL NEB SCH ×2 (08:31→20:27)
[2018-10-21] MEDS: LEVALBUTEROL HCL NEB 0.63 MG/3 ML AMPUL NEB PRN ×2 (08:31→20:27)
[2018-10-21] MEDS: FUROSEMIDE 40 MG TABLET PO SCH (08:40)
--- NOTE | 2018-10-21 09:34 | PDOC PROGRESS REPORT ---
Subjective Progress Note for:: 10/21/18 Subjective:: Patient is currently doing fair Denied any chest pain denied any shortness of the breath Patient seen by the cardiology and pulmonary Patient's kidney function is back to the normal Discussed with the daughter and the bedside regarding the patient's current conditions prefer to take home with the home health and physical therapy Reason For Visit: DIONNE WITH HYPERKALEMIA Physical Exam Vital Signs: Temp Pulse Resp BP Pulse Ox 97.7 F 85 20 165/58 H 100 10/21/18 07:50 10/21/18 07:50 10/21/18 07:50 10/21/18 07:50 10/21/18 07:50 Intake & Output 10/20/18 10/21/18 10/22/18 06:59 06:59 06:59 Intake Total 1050 1500 Output Total 700 Balance 1050 800 Weight 42.9 kg General appearance: PRESENT: no acute distress Head exam: PRESENT: atraumatic, normocephalic Eye exam: PRESENT: conjunctiva pink, EOMI, PERRLA. ABSENT: scleral icterus Ear exam: PRESENT: normal external ear exam Mouth exam: PRESENT: moist, tongue midline Neck exam: PRESENT: full ROM. ABSENT: carotid bruit, JVD, lymphadenopathy, thyromegaly Respiratory exam: PRESENT: clear to auscultation koko Cardiovascular exam: PRESENT: RRR. ABSENT: diastolic murmur, rubs, systolic murmur Pulses: PRESENT: normal dorsalis pedis pul, +2 pedal pulses bilateral Vascular exam: PRESENT: normal capillary refill GI/Abdominal exam: PRESENT: normal bowel sounds, soft. ABSENT: distended, guarding, mass, organolmegaly, rebound, tenderness Rectal exam: PRESENT: deferred Neurological exam: PRESENT: alert, awake, oriented to person, oriented to place, oriented to time, oriented to situation. ABSENT: motor sensory deficit Additional comments: rt side bells plasy Psychiatric exam: PRESENT: appropriate affect, normal mood. ABSENT: homicidal ideation, suicidal ideation Skin exam: PRESENT: dry, intact, warm. ABSENT: cyanosis, rash Results Laboratory Results: 10/21/18 06:02 10/21/18 06:02 10/21/18 10/21/18 06:02 06:02 WBC 11.6 H RBC 2.90 L Hgb 7.7 L Hct 23.3 L MCV 80 MCH 26.7 L MCHC 33.2 RDW 17.4 H Plt Count 177 Seg Neutrophils % 82.2 H Lymphocytes % 12.5 L Monocytes % 4.6 Eosinophils % 0.5 Basophils % 0.2 Absolute Neutrophils 9.5 H Absolute Lymphocytes 1.4 Absolute Monocytes 0.5 Absolute Eosinophils 0.1 Absolute Basophils 0.0 Sodium 141.0 Potassium 4.3 Chloride 115 H Carbon Dioxide 17 L Anion Gap 9 BUN 37 H Creatinine 0.95 Est GFR ( Amer) > 60 Est GFR (Non-Af Amer) 57 L Glucose 88 Calcium 9.1 10/17/18 10/17/18 10/17/18 18:30 18:30 21:35 Creatine Kinase 106 CK-MB (CK-2) 4.12 Troponin I 0.034 0.026 NT-Pro-B Natriuret Pep 511 H Impressions: Chest X-Ray 10/17/18 17:37 IMPRESSION: Apparent scarring in the right lung. No acute cardiopulmonary findings. Assessment & Plan - Diagnosis (1) Acute kidney injury superimposed on chronic kidney disease Is this a current diagnosis for this admission?: Yes (2) Rodriguez's palsy Is this a current diagnosis for this admission?: Yes (3) [place] disease Is this a current diagnosis for this admission?: Yes (4) Anemia Qualifiers: Anemia type: unspecified type Qualified Code(s): D64.9 - Anemia, unspecified Is this a current diagnosis for this admission?: Yes (5) COPD (chronic obstructive pulmonary disease) Qualifiers: COPD type: unspecified COPD Qualified Code(s): J44.9 - Chronic obstructive pulmonary disease, unspecified Is this a current diagnosis for this admission?: Yes (6) Cardiomyopathy Qualifiers: Cardiomyopathy type: unspecified Qualified Code(s): I42.9 - Cardiomyopathy, unspecified Is this a current diagnosis for this admission?: Yes (7) Congestive heart failure Qualifiers: Heart failure type: diastolic Heart failure chronicity: chronic Qualified Code(s): I50.32 - Chronic diastolic (congestive) heart failure Is this a current diagnosis for this admission?: Yes - Time Time Spent with patient: 15-24 minutes Medications reviewed and adjusted accordingly: Yes Anticipated discharge: Home with Homehealth - Inpatient Certification Based on my medical assessment, after consideration of the patient's comorbidities, presenting symptoms, or acuity I expect that the services needed warrant INPATIENT care.: Yes I certify that my determination is in accordance with my understanding of Medicare's requirements for reasonable and necessary INPATIENT services [42 CFR 412.3e].: Yes - Plan Summary Plan Summary: Will transfuse him 1 unit of the blood We will also give Procrit injections Patient needs to get the Procrit injections but patient hemoglobin go up unable to get it We will continue to monitor the patient's Discussed with the daughter Daughter wants to prefer to take her home did not want to take him to the nursing facility
[2018-10-21] MEDS: LANSOPRAZOLE 15 MG TAB.RAP.DR PO SCH ×2 (11:19→18:35)
[2018-10-21] MEDS: CALCIUM CARBONATE 500 MG TABLET PO SCH (11:19)
[2018-10-21] MEDS: BUSPIRONE HCL 10 MG TABLET PO SCH ×2 (11:20→18:31)
[2018-10-21] MEDS: PREDNISONE 20 MG TABLET PO SCH (11:20)
[2018-10-21] MEDS: CHOLECALCIFEROL (D3) 1,000 UNIT TABLET PO SCH (11:20)
[2018-10-21] MEDS: CYANOCOBALAMIN (VITAMIN B-12) 1,000 MCG TABLET PO SCH (11:20)
[2018-10-21] MEDS: MULTIVITAMIN TABLET PO SCH (11:20)
[2018-10-21] MEDS: FERROUS SULFATE 325 MG TABLET PO SCH ×2 (11:20→18:36)
[2018-10-21] MEDS: GABAPENTIN 400 MG CAPSULE PO SCH ×3 (11:21→18:36)
[2018-10-21] MEDS: VALACYCLOVIR HCL 500 MG TABLET PO SCH ×3 (11:23→18:36)
[2018-10-21] MEDS: DILTIAZEM HCL 240 MG CAPSULE.CR PO SCH ×2 (11:24→18:38)
[2018-10-21] MEDS: DRONEDARONE HYDROCHLORIDE 400 MG TABLET PO SCH ×2 (11:24→18:35)
--- NOTE | 2018-10-21 18:15 | XCELERA REPORT ---
[address] [address] Transthoracic Echocardiogram Report Name: JESSY PARKER Age: 77 yrs Gender: Female : 1940 Patient Status: Inpatient Patient Location: [address] [place], [place] [address] Study Date: 10/20/2018 11:39 AM Height: 48 in Weight: 94 lb BSA: 1.2 m2 Procedure: A complete two-dimensional transthoracic echocardiogram was performed (2D, M-mode, spectral and color flow Doppler). The study was technically adequate with some images being suboptimal in quality. Reason For Study: 2D ECHO EVAL PA PRESSURE,CHF Ordering Physician: JUAN COLLIER Performed By: Melany Corrales Interpretation Summary The left ventricular ejection fraction is normal. There is borderline concentric left ventricular hypertrophy. The left ventricle is normal in size. Doppler measurements suggest pseudonormalized left ventricular relaxation, which is associated with grade II/IV or mild to moderate diastolic dysfunction Wall motion cannot be accurately commented on, but no definite regional wall motion abnormalities noted. The right ventricular systolic function is normal. The right ventricle is grossly normal size. The left atrium is mildly dilated. The right atrium is normal in size There is a mild to moderate amount of mitral regurgitation There is no mitral valve stenosis. No aortic regurgitation is present. There is no aortic valve stenosis There is a mild amount of tricuspid regurgitation There is mild to moderate pulmonary hypertension by echo Best estimated RVSP is approximately 45 mm/Hg. The aortic root is not well visualized. The inferior vena cava appeared dilated and decreased < 50% with respiration (RAP 15-20 mmHg) There is no pericardial effusion. Incidental note of echodensity noted in the left atrium however this is felt to be related to invagination into the left atrial wall secondary to a large hiatal hernia rather than true echodensity inside the left atrium. This was confirmed by comparing with previous CT scan. MMode/2D Measurements & Calculations RVDd: 1.8 cm LVIDd: 4.0 cm FS: 48.0 % Ao root diam: 2.7 cm IVSd: 0.95 cm LVIDs: 2.1 cm EDV(Teich): 71.2 ml Ao root area: 5.9 cm2 LVPWd: 0.99 cm ESV(Teich): 14.3 ml LA dimension: 3.2 cm EF(Teich): 79.9 % Doppler Measurements & Calculations MV E max brittani: MV P1/2t max brittani: Ao V2 max: LV V1 max P.6 cm/sec 93.2 cm/sec 179.2 cm/sec 7.6 mmHg MV A max brittani: MV P1/2t: 99.9 msec Ao max PG: LV V1 max: 145.3 cm/sec MVA(P1/2t): 2.2 cm2 12.8 mmHg 137.8 cm/sec MV E/A: 0.64 MV dec slope: 273.4 cm/sec2 MV dec time: 0.31 sec PA V2 max: TR max brittani: MV P1/2t-pr_phl: 165.2 cm/sec 304.0 cm/sec 99.9 msec PA max PG: TR max P.0 mmHg 10.9 mmHg Left Ventricle The left ventricle is normal in size. There is borderline concentric left ventricular hypertrophy. The left ventricular ejection fraction is normal. Doppler measurements suggest pseudonormalized left ventricular relaxation, which is associated with grade II/IV or mild to moderate diastolic dysfunction. Wall motion cannot be accurately commented on, but no definite regional wall motion abnormalities noted. Right Ventricle The right ventricle is grossly normal size. The right ventricular systolic function is normal. Atria The right atrium is normal in size. The left atrium is mildly dilated. Interarterial septum not well visualized and not well dopplered. Cannot comment on ASD/PFO presence. Mitral Valve The mitral valve leaflets are sclerotic, but show no functional abnormalities. There is no mitral valve stenosis. There is a mild to moderate amount of mitral regurgitation. Aortic Valve The aortic valve opens well. There is no aortic valve stenosis. No aortic regurgitation is present. Tricuspid Valve The tricuspid valve is not well visualized, but is grossly normal. There is no tricuspid stenosis. There is a mild amount of tricuspid regurgitation. There is mild to moderate pulmonary hypertension by echo. Best estimated RVSP is approximately 45 mm/Hg. Pulmonic Valve The pulmonic valve is not well visualized. Great Vessels The aortic root is not well visualized. The inferior vena cava appeared dilated and decreased < 50% with respiration (RAP 15-20 mmHg). Effusions There is no pericardial effusion. : JUAN COLLIER > Juan Collier
--- NOTE | 2018-10-21 19:07 | PDOC PROGRESS REPORT ---
Subjective Progress Note for:: 10/21/18 Subjective:: Patient was seen on evening rounds. Patient is about the same but looks debilitated. VPCs have improved. Patient looks much more debilitated than when she was recently seen in the office. Patient has been noted to have bells palsy is on the right side. Reason For Visit: DIONNE WITH HYPERKALEMIA Physical Exam Vital Signs: Temp Pulse Resp BP Pulse Ox 97.6 F 79 20 158/53 H 100 10/21/18 17:15 10/21/18 17:15 10/21/18 17:15 10/21/18 17:15 10/21/18 17:15 Intake & Output 10/20/18 10/21/18 10/22/18 06:59 06:59 06:59 Intake Total 1050 1500 1300 Output Total 700 Balance 4558 386 3252 Weight 42.9 kg Exam: GENERAL: Mild respiratory distress distress. Alert and oriented x x2 HEAD: Atraumatic, normocephalic. EYES: MARIBETH, sclera anicteric, conjunctiva are normal. ENT: Moist mucous membranes. No oral ulcerations or bleeding gums noted. No obvious ear, nose or throat abnormalities noted. NECK: supple without lymphadenopathy. Trachea is central. No cervical or axillary lymphadenopathy noted. Carotids are 2+, JVD WNL LUNGS: Breath sounds clear bilaterally. Bilateral distant wheezes rales or rho nchi noted. No significant dullness noted on percussion. CHEST: Palpation of the chest wall shows no significant chest wall tenderness. HEART: [place] [employer], No PSH, 1/6 ROLY aortic area, 1/6 tran systolic murmur mitral area, no rubs, no gallops. ABDOMEN: Soft, no significant tenderness appreciated, normoactive bowel sounds. No guarding, no rebound. No rigidity noted . No masses appreciated. EXTREMITIES: Pedal pulses are 1-2+, no calf tenderness noted. No clubbing or cyanosis. Trace to 1+ pedal edema noted NEUROLOGICAL: Focused neurological exam showed no significant neurologic deficit. Normal speech, no focal weakness appreciated. PSYCH: Normal mood, normal affect. Not checked judgment and insight. SKIN: No significant ecchymosis, skin is noted to be warm. MUSCULOSKELETAL EXAM: No significant acute joint swelling noted. Results Laboratory Results: 10/21/18 06:02 10/21/18 06:02 10/21/18 10/21/18 10/21/18 06:02 06:02 08:58 WBC 11.6 H RBC 2.90 L Hgb 7.7 L Hct 23.3 L MCV 80 MCH 26.7 L MCHC 33.2 RDW 17.4 H Plt Count 177 Seg Neutrophils % 82.2 H Lymphocytes % 12.5 L Monocytes % 4.6 Eosinophils % 0.5 Basophils % 0.2 Absolute Neutrophils 9.5 H Absolute Lymphocytes 1.4 Absolute Monocytes 0.5 Absolute Eosinophils 0.1 Absolute Basophils 0.0 Sodium 141.0 Potassium 4.3 Chloride 115 H Carbon Dioxide 17 L Anion Gap 9 BUN 37 H Creatinine 0.95 Est GFR ( Amer) > 60 Est GFR (Non-Af Amer) 57 L Glucose 88 Calcium 9.1 Stool Occult Blood Blood Type A POSITIVE Antibody Screen NEGATIVE 10/21/18 16:00 WBC RBC Hgb Hct MCV MCH MCHC RDW Plt Count Seg Neutrophils % Lymphocytes % Monocytes % Eosinophils % Basophils % Absolute Neutrophils Absolute Lymphocytes Absolute Monocytes Absolute Eosinophils Absolute Basophils Sodium Potassium Chloride Carbon Dioxide Anion Gap BUN Creatinine Est GFR ( Amer) Est GFR (Non-Af Amer) Glucose Calcium Stool Occult Blood POSITIVE Blood Type Antibody Screen 10/17/18 10/17/18 10/17/18 18:30 18:30 21:35 Creatine Kinase 106 CK-MB (CK-2) 4.12 Troponin I 0.034 0.026 NT-Pro-B Natriuret Pep 511 H Impressions: Chest X-Ray 10/17/18 17:37 IMPRESSION: Apparent scarring in the right lung. No acute cardiopulmonary findings. Assessment & Plan - Diagnosis (1) Acute chronic obstructive pulmonary disease with respiratory failure Is this a current diagnosis for this admission?: Yes (2) Congestive heart failure Qualifiers: Heart failure type: diastolic Heart failure chronicity: chronic Qualified Code(s): I50.32 - Chronic diastolic (congestive) heart failure Is this a current diagnosis for this admission?: Yes (3) Coronary artery disease Qualifiers: Coronary Disease-Associated Artery/Lesion type: unspecified vessel or lesion type [place] vs. transplanted heart: [place] heart Is this a current diagnosis for this admission?: Yes (4) Hyperkalemia Is this a current diagnosis for this admission?: Yes (5) DIONNE (acute kidney injury) Is this a current diagnosis for this admission?: Yes (6) Chronic kidney disease Qualifiers: Chronic kidney disease stage: stage 4 (severe) Qualified Code(s): N18.4 - Chronic kidney disease, stage 4 (severe) Is this a current diagnosis for this admission?: Yes (7) [place] disease Is this a current diagnosis for this admission?: Yes (8) Anemia Qualifiers: Anemia type: unspecified type Qualified Code(s): D64.9 - Anemia, unspecified Is this a current diagnosis for this admission?: Yes - Notes Notes: 2D echo report reviewed with patient's daughter. There seems to be no significant change. Patient was felt not a candidate for hiatal hernia surgery which is causing some indentation into the left atrium but patient too debilitated to undergo any kind of surgery. Patient had blood transfusion today. She has chronic blood loss. Feel that risk benefit do not favor continuation of Eliquis therapy. Will therefore discontinue Eliquis therapy. Continue multaq therapy as patient is in sinus rhythm. I will discuss DNR status as patient looks to have worsened since her last visit in the office. Have reduce digoxin to 0.125 mg twice a week. Her digoxin level was noted to be 1.4, we like it to be below 1.0. Patient to use regular noninvasive ventilation during sleep and also at times during the day. May continue with DVT prophylaxis. Overall prognosis is guarded. - Time Time with patient: Greater than 35 minutes Medications reviewed and adjusted accordingly: Yes
--- NOTE | 2018-10-21 20:03 | PDOC PROGRESS REPORT ---
Subjective Progress Note for:: 10/19/18 Subjective:: Patient seen late at night. I was consulted because of increased Increased VPCs. Electrolytes were checked and was noted to be within normal limits. ABCs were checked they were noted to be satisfactory. Patient was noted to be confused. She was just placed on noninvasive ventilation. Reason For Visit: DIONNE WITH HYPERKALEMIA Physical Exam Vital Signs: Temp Pulse Resp BP Pulse Ox 98.2 F 73 18 150/35 H 99 10/19/18 21:05 10/19/18 21:05 10/19/18 20:05 10/19/18 21:05 10/19/18 20:05 Intake & Output 10/18/18 10/19/18 10/20/18 06:59 06:59 06:59 Intake Total 250 1372 50 Balance 250 1372 50 Weight 42.9 kg Exam: GEN: patient looks debilitated, patient alert oriented x2. Appearance and grooming WNL HEENT : Eyes: MARIBETH, Ears: No significant abnormalities, Nose: No significant abnormalities. normocephalic atraumatic. Flat midface (-), Receding chin (-) ORAL : Mallampati class IV, narrow arched palate (-) Tonsils: Not enlarged. NECK: no thyromegaly, no masses, trachea is central, JVD is not elevated, carotids 2+ with bruit (-) RESP: lungs clear, no rales, wheezes or rhonchi, nonlabored, accessory muscles of respiration use (-). CV: NL S1 and S2. No significant murmurs noted, no gallop, no extra sounds, no clicks, no rub noted. GI: abd NT to palpation, no masses, bowel sounds present, no guarding or rigidity noted. EXT: no clubbing, (-) cyanosis, edema (-), perpheral pulses diminished (no) MUSC/SKEL: no acute joint swelling noted. Muscle strength is generally intact. NEURO: no significant focal neurological deficits are note, sensation grossly intact, AO x 2, lower motor neuron weakness right side face. PSYCH: NL mood and affect. judgment and insight noted to be intact. SKIN: (-) rash, (-)Signs of pruritus, (-) other significant abnormality Results Laboratory Results: 10/19/18 04:42 10/19/18 04:42 10/19/18 10/19/18 10/19/18 02:00 04:42 04:42 WBC 10.8 H RBC 3.27 L Hgb 8.8 L Hct 26.5 L MCV 81 MCH 27.0 MCHC 33.4 RDW 17.5 H Plt Count 190 Seg Neutrophils % Not Reportable Lymphocytes % Not Reportable Monocytes % Not Reportable Eosinophils % Not Reportable Basophils % Not Reportable Absolute Neutrophils Not Reportable Absolute Lymphocytes Not Reportable Absolute Monocytes Not Reportable Absolute Eosinophils Not Reportable Absolute Basophils Not Reportable Carbonic Acid HCO3/H2CO3 Ratio ABG pH ABG pCO2 ABG pO2 ABG HCO3 ABG O2 Saturation ABG Base Excess FiO2 Sodium 142.7 Potassium 4.2 Chloride 117 H Carbon Dioxide 19 L Anion Gap 7 BUN 63 H D Creatinine 1.37 H Est GFR ( Amer) 45 L Est GFR (Non-Af Amer) 37 L Glucose 138 H Calcium 9.1 Magnesium Stool Occult Blood POSITIVE 10/19/18 10/19/18 04:42 15:00 WBC RBC Hgb Hct MCV MCH MCHC RDW Plt Count Seg Neutrophils % Lymphocytes % Monocytes % Eosinophils % Basophils % Absolute Neutrophils Absolute Lymphocytes Absolute Monocytes Absolute Eosinophils Absolute Basophils Carbonic Acid 0.79 L HCO3/H2CO3 Ratio 21:1 ABG pH 7.42 ABG pCO2 26.2 L ABG pO2 92.0 ABG HCO3 16.6 L ABG O2 Saturation 97.3 ABG Base Excess -6.6 FiO2 2L Sodium Potassium Chloride Carbon Dioxide Anion Gap BUN Creatinine Est GFR ( Amer) Est GFR (Non-Af Amer) Glucose Calcium Magnesium 2.3 Stool Occult Blood 10/17/18 21:05 Clean Catch Midstream Urine Culture - Final Mixed Urogenital Arlette 10/17/18 10/17/18 10/17/18 18:30 18:30 21:35 Creatine Kinase 106 CK-MB (CK-2) 4.12 Troponin I 0.034 0.026 NT-Pro-B Natriuret Pep 511 H EKG Comments: Telemetry shows sinus rhythm, occasional APCs and VPCs. EKG shows no significant ST-T wave changes. Impressions: Chest X-Ray 10/17/18 17:37 IMPRESSION: Apparent scarring in the right lung. No acute cardiopulmonary findings. Assessment & Plan - Diagnosis (1) Cardiac dysrhythmia, unspecified Qualifiers: Premature depolarization type: ventricular Is this a current diagnosis for this admission?: Yes (2) Acute kidney injury superimposed on chronic kidney disease Is this a current diagnosis for this admission?: Yes (3) Anemia Qualifiers: Anemia type: unspecified type Qualified Code(s): D64.9 - Anemia, unspeci fied Is this a current diagnosis for this admission?: Yes (4) Rodriguez's palsy Is this a current diagnosis for this admission?: Yes (5) Hyperkalemia Is this a current diagnosis for this admission?: Yes (6) DIONNE (acute kidney injury) Is this a current diagnosis for this admission?: Yes (7) Acute chronic obstructive pulmonary disease with respiratory failure Is this a current diagnosis for this admission?: Yes (8) [place] disease Is this a current diagnosis for this admission?: Yes (10) Coronary artery disease Qualifiers: Coronary Disease-Associated Artery/Lesion type: unspecified vessel or lesion type [place] vs. transplanted heart: [place] heart Is this a current diagnosis for this admission?: Yes (11) Paroxysmal atrial fibrillation Is this a current diagnosis for this admission?: Yes - Notes Notes: Consultation was for increased ventricular ectopy. Exact etiology not clear but could be multifactorial which could include just general debility, digoxin toxicity, CHF, respiratory failure etc. Currently patient has severe COPD therefore may not tolerate beta-zohra. Continue with multaq therapy. Acute on chronic kidney failure: Continue with very slow gradual hydration. Patient at risk for going into CHF. 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 Severe COPD with respiratory failure, hypoxemic type: Continue with bronchodilator therapy. Agree with pulmonary consultation and noninvasive alternation. Additions disease: Patient would continue to benefit from steroid replacement therapy. Coronary artery disease: Currently stable. Patient felt not a candidate for further evaluation. This was previously discussed with patient's daughter. Paroxysmal atrial fibrillation: Currently maintaining sinus rhythm. Patient is a borderline candidate for continuation of chronic anticoagulation. Will discuss with Dr. Heller. - Time Time with patient: Greater than 35 minutes - More than 50% of the time spent coordinating care, discussing management plans with involved caregivers. Management plans discussed with involved personnels. Medical decision making was of moderate to high complexity, patient's has multiple comorbidities. Medications reviewed and adjusted accordingly: Yes
[2018-10-22 06:22] LABS: ANION GAP 9 (5-19); BLOOD UREA NITROGEN 37 mg/dL (7-20); CALCIUM 8.5 mg/dL (8.4-10.2); CARBON DIOXIDE 20 mmol/L (22-30); CHLORIDE 108 mmol/L (98-107); GLUCOSE 85 mg/dL (75-110); POTASSIUM 4.3 mmol/L (3.6-5.0); SODIUM 136.6 mmol/L (137-145)
[2018-10-22] MEDS: FUROSEMIDE 40 MG TABLET PO SCH ×2 (07:47→12:13)
[2018-10-22] MEDS: ACETYLCYSTEINE 10% NEB 400 MG/4 ML VIAL NEB SCH ×2 (08:22→20:10)
[2018-10-22] MEDS: BUDESONIDE NEB 0.5 MG/2 ML AMPUL NEB SCH ×2 (08:23→20:10)
[2018-10-22] MEDS: LEVALBUTEROL HCL NEB 0.63 MG/3 ML AMPUL NEB PRN ×2 (08:23→20:10)
--- NOTE | 2018-10-22 09:13 | PDOC PROGRESS REPORT ---
Subjective Progress Note for:: 10/22/18 Subjective:: Patient is currently doing fair Patient is denied any chest pain denied any shortness of the breath Patients received a 1 L of the blood yesterday Patient daughter on the bedside discussed with the patient's ongoing weakness still preferred to take home Discussed with the Dr. Bal with the patient has some colonic ulcers and esophagitis with ongoing anemia with guaiac stool is positive need for further evaluations Reason For Visit: DIONNE WITH HYPERKALEMIA Physical Exam Vital Signs: Temp Pulse Resp BP Pulse Ox 97.3 F 72 20 153/50 H 100 10/22/18 08:00 10/22/18 08:05 10/22/18 08:05 10/22/18 08:05 10/22/18 08:05 Intake & Output 10/21/18 10/22/18 10/23/18 06:59 06:59 06:59 Intake Total 1500 1400 Output Total 700 Balance 800 1400 Weight 42.9 kg 42.9 kg General appearance: PRESENT: no acute distress Head exam: PRESENT: atraumatic, normocephalic Eye exam: PRESENT: conjunctiva pink, EOMI, PERRLA. ABSENT: scleral icterus Ear exam: PRESENT: normal external ear exam Mouth exam: PRESENT: moist, tongue midline Neck exam: PRESENT: full ROM. ABSENT: carotid bruit, JVD, lymphadenopathy, thyromegaly Respiratory exam: PRESENT: clear to auscultation koko Cardiovascular exam: PRESENT: RRR. ABSENT: diastolic murmur, rubs, systolic murmur Pulses: PRESENT: normal dorsalis pedis pul, +2 pedal pulses bilateral Vascular exam: PRESENT: normal capillary refill GI/Abdominal exam: PRESENT: normal bowel sounds, soft. ABSENT: distended, guarding, mass, organolmegaly, rebound, tenderness Rectal exam: PRESENT: deferred Extremities exam: ABSENT: pedal edema Neurological exam: PRESENT: alert, awake, oriented to person, oriented to place, oriented to time, oriented to situation. ABSENT: motor sensory deficit Psychiatric exam: PRESENT: appropriate affect, normal mood. ABSENT: homicidal ideation, suicidal ideation Skin exam: PRESENT: dry, intact, warm. ABSENT: cyanosis, rash Results Laboratory Results: 10/21/18 06:02 10/22/18 04:44 10/21/18 10/21/18 10/22/18 08:58 16:00 04:44 Sodium 136.6 L Potassium 4.3 Chloride 108 H Carbon Dioxide 20 L Anion Gap 9 BUN 37 H Creatinine 0.93 Est GFR ( Amer) > 60 Est GFR (Non-Af Amer) 58 L Glucose 85 Calcium 8.5 Stool Occult Blood POSITIVE Blood Type A POSITIVE Antibody Screen NEGATIVE 10/17/18 10/17/18 10/17/18 18:30 18:30 21:35 Creatine Kinase 106 CK-MB (CK-2) 4.12 Troponin I 0.034 0.026 NT-Pro-B Natriuret Pep 511 H Impressions: Chest X-Ray 10/17/18 17:37 IMPRESSION: Apparent scarring in the right lung. No acute cardiopulmonary findings. 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 (3) [place] disease Is this a current diagnosis for this admission?: Yes Plan: Continues on a prednisone (4) Anemia Qualifiers: Anemia type: unspecified type Qualified Code(s): D64.9 - Anemia, un specified Is this a current diagnosis for this admission?: Yes Plan: Patient's guaiac stool is positive Patient with significant history of the esophagitis colonic ulcer, chronic steroid Continues to PPI Follow-up with the GI Patient also underlying chronic kidney disease will give a Procrit injection before the discharge (5) COPD (chronic obstructive pulmonary disease) Qualifiers: COPD type: unspecified COPD Qualified Code(s): J44.9 - Chronic obstructive pulmonary disease, unspecified Is this a current diagnosis for this admission?: Yes Plan: Currently all stable (6) Cardiomyopathy Qualifiers: Cardiomyopathy type: unspecified Qualified Code(s): I42.9 - Cardiomyopathy, unspecified Is this a current diagnosis for this admission?: Yes Plan: Follow with the cardiology (7) Congestive heart failure Qualifiers: Heart failure type: diastolic Heart failure chronicity: chronic Qualified Code(s): I50.32 - Chronic diastolic (congestive) heart failure Is this a current diagnosis for this admission?: Yes Plan: Continues to Lasix (8) Paroxysmal atrial fibrillation Is this a current diagnosis for this admission?: Yes Plan: At this point patient is a not a good candidate for Eliquis as per discussed with the cardiology with ongoing bleeding problems discussed with the daughter understand - Time Time Spent with patient: 15-24 minutes Medications reviewed and adjusted accordingly: Yes Anticipated discharge: Home with Homehealth Within: Other - Plan Summary Plan Summary: His current medications
--- NOTE | 2018-10-22 09:29 | PDOC CONSULTATION ---
Consultation Consult Date: 10/22/18 Attending physician:: PATRICIA ANGEL Consult reason:: decreasing Hgb , heme positive stool History of Present Illness Admission Date/PCP: 10/19/18 11:09 KEILY HELLER MD History of Present Illness: JESSY PARKER is a 77 year old female Spoke with Dr Heller patient seen about 1 year ago has had further decline in her mental status, new Rodriguez's palsy patient had 2D echo showing indentation of the left atrium due to a large hiatal hernia patient does have a poor appetite she likely has significant symptoms whenever she eats and therefore may not want to eat her Eliquis has been stopped due to more risks than benefits patient had EGD and colonoscopy done about 1 year ago she has had a colectomy in the past, there was an ulcer in the colon biopsies are negative patient now having decreasing Hgb and heme positive stools I will speak to the daughter to see if need to proceed with any procedures Past Medical History Cardiac Medical History: Reports: Atrial Fibrillation, Congestive Heart Failure, Coronary Artery Disease, Hyperlipidema, Hypertension Pulmonary Medical History: Reports: Asthma, Bronchitis, Pneumonia, Sleep Apnea Neurological Medical History: Denies: Migraine, Seizures Endocrine Medical History: Reports: Diabetes Mellitus Type 2 Renal/ Medical History: Denies: End Stage Renal Disease GI Medical History: Reports: Gastroesophageal Reflux Disease, Hiatal Hernia - L arge, with intrathoracic stomach., Ulcerative Colitis Musculoskeltal Medical History: Reports: Arthritis Skin Medical History: Denies: Psoriasis Psychiatric Medical History: Reports: Depression Traumatic Medical History: Denies: Traumatic Brain Injury Hematology: Reports: Anemia Infectious Medical History: Reports: Methicillin-Resistant Staph Aureus Past Surgical History Past Surgical History: Reports: Appendectomy, Hysterectomy, Other - History of right hemicolectomy, questionable history of ulcerative colitis. Social History Lives with: Family Smoking Status: Never Smoker Frequency of Alcohol Use: None Hx Recreational Drug Use: No Drugs: None Hx Prescription Drug Abuse: No Family History Family History: CAD, Hyperlipidemia, Hypertension Parental Family History Reviewed: Yes Children Family History Reviewed: Unknown Sibling(s) Family History Reviewed.: Unknown Medication/Allergy Home Medications: Apixaban [Eliquis] 5 mg PO MOWEFR 03/22/18 Budesonide 0.5 mg NEB BID 03/22/18 Calcium Carbonate [Calcium] 600 mg PO DAILY 03/22/18 Cholecalciferol (Vitamin D3) [Vitamin D3 1000 Unit Tablet] 1,000 unit PO DAILY 03/22/18 Digoxin [Lanoxin 0.125 mg Tablet] 0.125 mg PO MOWEFR@1000 03/22/18 Dronedarone Hydrochloride [Multaq 400 mg Tablet] 400 mg PO BID 03/22/18 Fenofibrate Nanocrystallized [Fenofibrate] 145 mg PO DAILY 03/22/18 Ferrous Sulfate [Ferosul] 325 mg PO BID 03/22/18 Furosemide [Lasix] 40 mg PO MOTUWETHFR 03/22/18 Gabapentin 800 mg PO TID 03/22/18 Hum Insulin NPH/Reg Insulin Hm [Novolin 70-30 100 Unit/ml Vial] 0 unit SQ .SLIDING SCALE 03/22/18 Levalbuterol HCl [Xopenex Neb 0.63 mg/3 ml Ampul] 0.63 mg NEB PRN PRN 03/22/18 Levalbuterol Tartrate [Xopenex Hfa] 1 puff IH PRN PRN 03/22/18 Losartan Potassium 100 mg PO DAILY 03/22/18 Omeprazole 20 mg PO BID 03/22/18 Cyanocobalamin (Vitamin B-12) [Vitamin B-12 100 mcg Tablet] 1,000 mcg PO DAILY 03/23/18 Latanoprost [Xalatan 0.005% Oph Soln 2.5 ml] 1 drop OU QHS 03/23/18 Acetylcysteine [Mucomist 10% Neb 400 mg/4 mL Vial] 200 mg IH BID 03/25/18 Prednisone [Deltasone 20 mg Tablet] 20 mg PO DAILY 03/25/18 Acetaminophen [Tylenol 325 mg Tablet] 650 mg PO BID 10/18/18 Buspirone HCl [Buspar 5 mg Tablet] 1 tab PO BID 10/18/18 Diltiazem HCl [Diltiazem 24Hr ER] 240 mg PO BID 10/18/18 Ipratropium [place] [Atrovent 0.02% Neb 0.5 mg/2.5 ml Ampul] 0.5 mg NEB PRN PRN 10/18/18 Multivit-Min36/Iron/Folic Acid [Geritol Complete Tablet] 1 each PO DAILY 10/18/18 Potassium Chloride [Klor-Con 10 Meq Capsule ER] 10 meq PO MOWEFR 10/18/18 Sulfamethoxazole/Trimethoprim [Bactrim 400-80 mg Tablet] 1 each PO MOWEFR 10/18/18 Valacyclovir HCl [Valtrex] 1,000 mg PO TID 10/18/18 Allergies/Adverse Reactions: aspirin [Aspirin] Allergy (Verified 10/17/18 17:22) Hives colchicine Allergy (Verified 10/17/18 17:22) Hives iodine Allergy (Verified 10/17/18 17:22) Hives NSAIDS (Non-Steroidal Anti-Inflamma Allergy (Verified 10/17/18 17:22) Hives Penicillins Allergy (Verified 10/17/18 15:37) Hives shellfish derived Allergy (Verified 10/17/18 17:22) Hives Review of Systems Constitutional: ABSENT: fever(s), headache(s), night sweats Eyes: ABSENT: visual disturbances Ears: ABSENT: hearing changes Nose, Mouth, and Throat: ABSENT: mouth pain, sore throat Cardiovascular: ABSENT: orthropnea, palpitations Respiratory: ABSENT: hemoptysis Gastrointestinal: ABSENT: diarrhea Genitourinary: ABSENT: dysuria, hematuria Musculoskeletal: ABSENT: deformity, joint swelling Neurological: PRESENT: weakness. ABSENT: syncope, tingling, tremor(s), vertigo Endocrine: ABSENT: polydipsia, polyphagia, polyuria Hematologic/Lymphatic: ABSENT: easy bruising Physical Exam Vital Signs: Temp Pulse Resp BP Pulse Ox 97.3 F 72 20 153/50 H 100 10/22/18 08:00 10/22/18 08:05 10/22/18 08:05 10/22/18 08:05 10/22/18 08:05 Intake & Output 10/21/18 10/22/18 10/23/18 06:59 06:59 06:59 Intake Total 1500 1400 Output Total 700 Balance 800 1400 Weight 42.9 kg 42.9 kg General appearance: PRESENT: no acute distress, thin Head exam: PRESENT: atraumatic, normocephalic Eye exam: PRESENT: EOMI, PERRLA. ABSENT: nystagmus, periorbital swelling, scleral icterus Mouth exam: PRESENT: moist, neck supple Throat exam: ABSENT: tonsillar exudate, tonsillogmegaly Neck exam: ABSENT: meningismus, tenderness, thyromegaly Respiratory exam: PRESENT: symmetrical, unlabored. ABSENT: tachypnea, wheezes Cardiovascular exam: PRESENT: irregular rhythm GI/Abdominal exam: PRESENT: soft. ABSENT: rebound, rigid, tenderness Extremities exam: ABSENT: joint swelling Musculoskeletal exam: PRESENT: full ROM Neurological exam: PRESENT: oriented to time, oriented to situation, CN II-XII grossly intact Focused psych exam: ABSENT: restlessness Skin exam: PRESENT: normal color. ABSENT: mottled, pallor, petechiae, urticaria, vesicles Results Laboratory Results: 10/21/18 06:02 10/22/18 04:44 10/21/18 10/21/18 10/22/18 08:58 16:00 04:44 Sodium 136.6 L Potassium 4.3 Chloride 108 H Carbon Dioxide 20 L Anion Gap 9 BUN 37 H Creatinine 0.93 Est GFR ( Amer) > 60 Est GFR (Non-Af Amer) 58 L Glucose 85 Calcium 8.5 Stool Occult Blood POSITIVE Blood Type A POSITIVE Antibody Screen NEGATIVE 10/17/18 10/17/18 10/17/18 18:30 18:30 21:35 Creatine Kinase 106 CK-MB (CK-2) 4.12 Troponin I 0.034 0.026 NT-Pro-B Natriuret Pep 511 H Impressions: Chest X-Ray 10/17/18 17:37 IMPRESSION: Apparent scarring in the right lung. No acute cardiopulmonary f indings. Assessment & Plan - Diagnosis (2) Anemia Qualifiers: Anemia type: unspecified type Qualified Code(s): D64.9 - Anemia, unspecified Plan: likely multifactorial, but does have heme positive stools had colon ulcer in the past has had colon surgery in the past will need surveillance Risks, benefits and alternatives to be discussed prior to proceeding (3) Colon ulcer Plan: noted on colonoscopy from last last year patient has a history of ? ulcerative colitis, but ulcer was more suggestive other etiology biopsies were negative needs a surveillance EGD may also be necessary to evaluate other causes - Time Time Spent: 50 to 70 Minutes
[2018-10-22 10:25] LABS: HEMATOCRIT 27.9 % (36.0-47.0); HEMOGLOBIN 9.6 g/dL (12.0-15.5); MEAN CORPUSCULAR HEMOGLOBIN 28.1 pg (27.0-33.4); MEAN CORPUSCULAR HGB CONC 34.3 g/dL (32.0-36.0); MEAN CORPUSCULAR VOLUME 82 fl (80-97); PLATELET COUNT 175 10^3/uL (150-450); RED CELL DISTRIBUTION WIDTH 17.4 % (11.5-14.0); WHITE BLOOD COUNT 8.6 10^3/uL (4.0-10.5)
[2018-10-22 11:11] LABS: ABSOLUTE LYMPHOCYTES# (MANUAL) 1.4 10^3/uL (0.5-4.7); ABSOLUTE MONOCYTES # (MANUAL) 0.5 10^3/uL (0.1-1.4); ABSOLUTE NEUTROPHILS# (MANUAL) 6.7 10^3/uL (1.7-8.2); BASOPHILS % (MANUAL) 0 % (0-2); EOSINOPHILS % (MANUAL) 0 % (0-6); LYMPHOCYTES % (MANUAL) 16 % (13-45); MONOCYTES % (MANUAL) 6 % (3-13); OVALOCYTES SLIGHT; PLATELET CLUMPS PRESENT; POIKILOCYTOSIS SLIGHT; POLYCHROMASIA 1+; SEGMENTED NEUTROPHILS % (MAN) 78 % (42-78); TOTAL CELLS COUNTED 100; TOXIC GRANULATION SLIGHT
[2018-10-22] MEDS: CHOLECALCIFEROL (D3) 1,000 UNIT TABLET PO SCH (12:14)
[2018-10-22] MEDS: MULTIVITAMIN TABLET PO SCH (12:14)
[2018-10-22] MEDS: CALCIUM CARBONATE 500 MG TABLET PO SCH (12:14)
[2018-10-22] MEDS: PREDNISONE 20 MG TABLET PO SCH (12:14)
[2018-10-22] MEDS: LANSOPRAZOLE 15 MG TAB.RAP.DR PO SCH ×2 (12:14→18:01)
[2018-10-22] MEDS: VALACYCLOVIR HCL 500 MG TABLET PO SCH ×3 (12:14→18:01)
[2018-10-22] MEDS: FERROUS SULFATE 325 MG TABLET PO SCH ×2 (12:15→18:01)
[2018-10-22] MEDS: GABAPENTIN 400 MG CAPSULE PO SCH ×3 (12:15→18:01)
[2018-10-22] MEDS: CYANOCOBALAMIN (VITAMIN B-12) 1,000 MCG TABLET PO SCH (12:15)
[2018-10-22] MEDS: DILTIAZEM HCL 240 MG CAPSULE.CR PO SCH ×2 (12:15→18:01)
[2018-10-22] MEDS: DRONEDARONE HYDROCHLORIDE 400 MG TABLET PO SCH ×2 (12:15→18:01)
[2018-10-22] MEDS: SULFAMETHOXAZOLE/TRIMETHOPRIM 800-160 MG TABLET PO SCH (12:15)
[2018-10-22] MEDS: DIGOXIN 0.125 MG TABLET PO SCH (12:20)
[2018-10-22] MEDS: POTASSIUM CHLORIDE 10 MEQ CAPSULE.ER PO SCH (12:20)
[2018-10-22] MEDS: BUSPIRONE HCL 10 MG TABLET PO SCH ×2 (14:51→22:14)
[2018-10-22] MEDS ORDERED: POLYETHYLENE GLYCOL 3350 POWDER 17 GM/1 PACKET PO PRN (15:00)
--- NOTE | 2018-10-22 18:59 | PDOC PROGRESS REPORT ---
Subjective Progress Note for:: 10/22/18 Subjective:: Patient seen On evening rounds. Patient seems to be doing better with gradual improvement. Pt is denying any chest arm or neck discomfort. Patient denying any PND, orthopnea. Patient denied any sustained palpitations, dizziness, syncope, near syncope. Patient denying any fever chills. Patient denying any other significant discomfort. Patient to have consultation with shear setter. This is for evaluation of anemia Patient is maintaining sinus rhythm. Review of systems: Rest review of systems negative. Medications: Medications have been reviewed. Reason For Visit: DIONNE WITH HYPERKALEMIA Physical Exam Vital Signs: Temp Pulse Resp BP Pulse Ox 98.4 F 83 20 137/49 H 99 10/22/18 15:30 10/22/18 15:30 10/22/18 15:30 10/22/18 15:30 10/22/18 15:30 Intake & Output 10/21/18 10/22/18 10/23/18 06:59 06:59 06:59 Intake Total 1500 1450 358 Output Total 700 900 Balance 800 1450 -542 Weight 42.9 kg 42.9 kg Exam: GENERAL: well-nourished and in no acute distress. Alert and oriented x2 HEAD: Atraumatic, normocephalic. EYES: MARIBETH, sclera anicteric, conjunctiva are normal. ENT: Moist mucous membranes. No oral ulcerations or bleeding gums noted. No obvious ear, nose or throat abnormalities noted. NECK: supple without lymphadenopathy. Trachea is central. No cervical or axillary lymphadenopathy noted. Carotids are 2+, JVD WNL LUNGS: Breath sounds Bilateral mild wheezes rales or rhonchi noted. No significant dullness noted on percussion. CHEST: Palpation of the chest wall shows no significant chest wall tenderness. HEART: [place] [employer], No PSH, 1/6 ROLY aortic area, 1/6 tran systolic murmur mitral area, no rubs, no gallops. ABDOMEN: Soft, no significant tenderness appreciated, normoactive bowel sounds. No guarding, no rebound. No rigidity noted . No masses appreciated. EXTREMITIES: Pedal pulses are 1-2+, no calf tenderness noted. No clubbing or cyanosis. negative pedal edema noted NEUROLOGICAL: Focused neurological exam showed no significant neurologic deficit. Normal speech, no focal weakness appreciated. PSYCH: Normal mood, normal affect. Judgment and insight Not checked. Results Laboratory Results: 10/22/18 04:44 10/22/18 04:44 10/22/18 10/22/18 04:44 04:44 WBC 8.6 RBC 3.40 L Hgb 9.6 L Hct 27.9 L MCV 82 MCH 28.1 MCHC 34.3 RDW 17.4 H Plt Count 175 Seg Neutrophils % Not Reportable Lymphocytes % Not Reportable Monocytes % Not Reportable Eosinophils % Not Reportable Basophils % Not Reportable Absolute Neutrophils Not Reportable Absolute Lymphocytes Not Reportable Absolute Monocytes Not Reportable Absolute Eosinophils Not Reportable Absolute Basophils Not Reportable Sodium 136.6 L Potassium 4.3 Chloride 108 H Carbon Dioxide 20 L Anion Gap 9 BUN 37 H Creatinine 0.93 Est GFR ( Amer) > 60 Est GFR (Non-Af Amer) 58 L Glucose 85 Calcium 8.5 10/17/18 10/17/18 10/17/18 18:30 18:30 21:35 Creatine Kinase 106 CK-MB (CK-2) 4.12 Troponin I 0.034 0.026 NT-Pro-B Natriuret Pep 511 H EKG Comments: Patient maintaining sinus rhythm. No significant cardiac dysrhythmia noted. Impressions: Chest X-Ray 10/17/18 17:37 IMPRESSION: Apparent scarring in the right lung. No acute cardiopulmonary findings. Assessment & Plan - Diagnosis (1) Cardiac dysrhythmia, unspecified Qualifiers: Premature depolarization type: ventricular Is this a current diagnosis for this admission?: Yes (2) Acute kidney injury superimposed on chronic kidney disease Is this a current diagnosis for this admission?: Yes (3) Anemia Qualifiers: Anemia type: unspecified type Qualified Code(s): D64.9 - Anemia, unspecified Is this a current diagnosis for this admission?: Yes (4) Rodriguez's palsy Is this a current diagnosis for this admission?: Yes (5) Hyperkalemia Is this a current diagnosis for this admission?: Yes (6) DIONNE (acute kidney injury) Is this a current diagnosis for this admission?: Yes (7) Acute chronic obstructive pulmonary disease with respiratory failure Is this a current diagnosis for this admission?: Yes (8) [place] disease Is this a current diagnosis for this admission?: Yes (10) Coronary artery disease Qualifiers: Coronary Disease-Associated Artery/Lesion type: unspecified vessel or lesion type [place] vs. transplanted heart: [place] heart Is this a current diagnosis for this admission?: Yes (11) Paroxysmal atrial fibrillation Is this a current diagnosis for this admission?: Yes - Notes Notes: No significant change in patient condition noted. Patient remains debilitated but seems to be gradually improving. Patient being considered for endoscopy for evaluation of anemia. Cardiac acevedo she remained stable, in a stable rhythm and seems compensated. Patient does have significant pulmonary issues. - Time Time with patient: 15-25 minutes - CODE STATUS was discussed, patient remains full code. Surrogate decision-maker unchanged. Multiple medical problems were addressed. More than 50% of the time spent coordinating care, discussing management plans with involved caregivers. Management plans discussed with involved personnels. Medical decision making was of moderate to high complexity, patient's has multiple comorbidities. Medications reviewed and adjusted accordingly: Yes
[2018-10-22] MEDS: INSULIN LISPRO 100 UNIT/ML 3 ML VIAL SUBCUT PRN ×2 (19:13→22:14)
[2018-10-22] MEDS: LATANOPROST 0.005% OPH SOLN 2.5 ML OU SCH (22:14)
[2018-10-23] MEDS: BUSPIRONE HCL 10 MG TABLET PO SCH ×3 (05:47→21:33)
[2018-10-23 06:49] LABS: HEMATOCRIT 31.1 % (36.0-47.0); HEMOGLOBIN 10.6 g/dL (12.0-15.5); MEAN CORPUSCULAR HEMOGLOBIN 27.6 pg (27.0-33.4); MEAN CORPUSCULAR VOLUME 81 fl (80-97); PLATELET COUNT 198 10^3/uL (150-450); RED BLOOD COUNT 3.82 10^6/uL (3.72-5.28); RED CELL DISTRIBUTION WIDTH 17.1 % (11.5-14.0); WHITE BLOOD COUNT 8.6 10^3/uL (4.0-10.5)
[2018-10-23 07:08] LABS: ABSOLUTE LYMPHOCYTES# (MANUAL) 1.1 10^3/uL (0.5-4.7); ABSOLUTE MONOCYTES # (MANUAL) 0.4 10^3/uL (0.1-1.4); ABSOLUTE NEUTROPHILS# (MANUAL) 7.1 10^3/uL (1.7-8.2); ANISOCYTOSIS 1+; BAND NEUTROPHILS % (MANUAL) 2 % (3-5); BASOPHILS % (MANUAL) 0 % (0-2); EOSINOPHILS % (MANUAL) 0 % (0-6); LYMPHOCYTES % (MANUAL) 13 % (13-45); MONOCYTES % (MANUAL) 5 % (3-13); PLATELET COMMENT ADEQUATE; SEGMENTED NEUTROPHILS % (MAN) 80 % (42-78); TOTAL CELLS COUNTED 100; TOXIC GRANULATION SLIGHT
[2018-10-23 07:13] LABS: ANION GAP 9 (5-19); BLOOD UREA NITROGEN 32 mg/dL (7-20); CARBON DIOXIDE 20 mmol/L (22-30); CHLORIDE 104 mmol/L (98-107); GLUCOSE 107 mg/dL (75-110); POTASSIUM 3.7 mmol/L (3.6-5.0); SODIUM 133.2 mmol/L (137-145)
[2018-10-23] MEDS: ACETYLCYSTEINE 10% NEB 400 MG/4 ML VIAL NEB SCH ×2 (09:12→20:44)
[2018-10-23] MEDS: LEVALBUTEROL HCL NEB 0.63 MG/3 ML AMPUL NEB PRN ×2 (09:13→20:43)
[2018-10-23] MEDS: FUROSEMIDE 40 MG TABLET PO SCH (09:13)
[2018-10-23] MEDS: DILTIAZEM HCL 240 MG CAPSULE.CR PO SCH ×2 (09:14→21:33)
[2018-10-23] MEDS: VALACYCLOVIR HCL 500 MG TABLET PO SCH ×3 (09:14→17:26)
[2018-10-23] MEDS: GABAPENTIN 400 MG CAPSULE PO SCH ×3 (09:14→17:26)
[2018-10-23] MEDS: MULTIVITAMIN TABLET PO SCH (09:14)
[2018-10-23] MEDS: CALCIUM CARBONATE 500 MG TABLET PO SCH (09:14)
[2018-10-23] MEDS: BUDESONIDE NEB 0.5 MG/2 ML AMPUL NEB SCH ×2 (09:14→20:43)
[2018-10-23] MEDS: LANSOPRAZOLE 15 MG TAB.RAP.DR PO SCH ×2 (09:14→17:26)
[2018-10-23] MEDS: CYANOCOBALAMIN (VITAMIN B-12) 1,000 MCG TABLET PO SCH (09:14)
[2018-10-23] MEDS: FERROUS SULFATE 325 MG TABLET PO SCH ×2 (09:14→17:26)
[2018-10-23] MEDS: PREDNISONE 20 MG TABLET PO SCH (09:14)
[2018-10-23] MEDS: DRONEDARONE HYDROCHLORIDE 400 MG TABLET PO SCH ×2 (09:14→17:26)
[2018-10-23] MEDS: CHOLECALCIFEROL (D3) 1,000 UNIT TABLET PO SCH (09:15)
--- NOTE | 2018-10-23 12:52 | PDOC PROGRESS REPORT ---
Subjective Progress Note for:: 10/23/18 Subjective:: Patient is currently doing fair Patient denied any chest pain to than any shortness of the breath Patient hemoglobin is stable Patient is scheduled for colonoscopy today Reason For Visit: DIONNE WITH HYPERKALEMIA Physical Exam Vital Signs: Temp Pulse Resp BP Pulse Ox 97.4 F 75 20 144/54 H 100 10/23/18 11:25 10/23/18 11:25 10/23/18 11:25 10/23/18 11:25 10/23/18 11:25 Intake & Output 10/22/18 10/23/18 10/24/18 06:59 06:59 06:59 Intake Total 1450 358 Output Total 900 Balance 1450 -542 Weight 42.9 kg 42.9 kg General appearance: PRESENT: no acute distress, well-developed, well-nourished Head exam: PRESENT: atraumatic, normocephalic Eye exam: PRESENT: conjunctiva pink, EOMI, PERRLA. ABSENT: scleral icterus Ear exam: PRESENT: normal external ear exam Mouth exam: PRESENT: moist, tongue midline Neck exam: PRESENT: full ROM. ABSENT: carotid bruit, JVD, lymphadenopathy, thyromegaly Respiratory exam: PRESENT: clear to auscultation koko Cardiovascular exam: PRESENT: RRR. ABSENT: diastolic murmur, rubs, systolic murmur Pulses: PRESENT: normal dorsalis pedis pul, +2 pedal pulses bilateral Vascular exam: PRESENT: normal capillary refill GI/Abdominal exam: PRESENT: normal bowel sounds, soft. ABSENT: distended, guarding, mass, organolmegaly, rebound, tenderness Rectal exam: PRESENT: deferred Extremities exam: ABSENT: pedal edema Neurological exam: PRESENT: alert, awake, oriented to person, oriented to place, oriented to time, oriented to situation, CN II-XII grossly intact. ABSENT: motor sensory deficit Psychiatric exam: PRESENT: appropriate affect, normal mood. ABSENT: homicidal ideation, suicidal ideation Skin exam: PRESENT: dry, intact, warm. ABSENT: cyanosis, rash Results Laboratory Results: 10/23/18 06:14 10/23/18 06:14 10/23/18 10/23/18 06:14 06:14 WBC 8.6 RBC 3.82 Hgb 10.6 L Hct 31.1 L MCV 81 MCH 27.6 MCHC 34.0 RDW 17.1 H Plt Count 198 Seg Neutrophils % Not Reportable Lymphocytes % Not Reportable Monocytes % Not Reportable Eosinophils % Not Reportable Basophils % Not Reportable Absolute Neutrophils Not Reportable Absolute Lymphocytes Not Reportable Absolute Monocytes Not Reportable Absolute Eosinophils Not Reportable Absolute Basophils Not Reportable Sodium 133.2 L Potassium 3.7 Chloride 104 Carbon Dioxide 20 L Anion Gap 9 BUN 32 H Creatinine 0.87 Est GFR ( Amer) > 60 Est GFR (Non-Af Amer) > 60 Glucose 107 Calcium 9.0 10/17/18 10/17/18 10/17/18 18:30 18:30 21:35 Creatine Kinase 106 CK-MB (CK-2) 4.12 Troponin I 0.034 0.026 NT-Pro-B Natriuret Pep 511 H Impressions: Chest X-Ray 10/17/18 17:37 IMPRESSION: Apparent scarring in the right lung. No acute cardiopulmonary findings. 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?: Yes (3) [place] disease Is this a current diagnosis for this admission?: Yes Plan: Continues on a prednisone (4) Anemia Qualifiers: Anemia type: unspecified type Qualified Code(s): D64.9 - Anemia, unspecified Is this a current diagnosis for this admission?: Yes Plan: Post blood transfusion (5) COPD (chronic obstructive pulmonary disease) Qualifiers: COPD type: unspecified COPD Qualified Code(s): J44.9 - Chronic obstructive pulmonary disease, unspecified Is this a current diagnosis for this admission?: Yes Plan: Currently all stable (6) Cardiomyopathy Qualifiers: Cardiomyopathy type: unspecified Qualified Code(s): I42.9 - Cardiomyopathy, unspecified Is this a current diagnosis for this admission?: Yes Plan: Follow with the cardiology (7) Congestive heart failure Qualifiers: Heart failure type: diastolic Heart failure chronicity: chronic Qualified Code(s): I50.32 - Chronic diastolic (congestive) heart failure Is this a current diagnosis for this admission?: Yes Plan: Continues to Lasix (8) Paroxysmal atrial fibrillation Is this a current diagnosis for this admission?: Yes Plan: At this point patient is a not a good candidate for Eliquis as per discussed with the cardiology with ongoing bleeding problems discussed with the daughter understand - Time Time Spent with patient: 15-24 minutes Medications reviewed and adjusted accordingly: Yes Anticipated discharge: Home with Homehealth Within: within 24 hours - Plan Summary Plan Summary: Will follow with the GI
[2018-10-23] MEDS ORDERED: PROPOFOL INJ 200 MG/20 ML VIAL IV ONE (13:39)
[2018-10-23] MEDS ORDERED: LIDOCAINE 2% INJ-PF (20 MG/ML) 10 ML AMPUL ONE (13:39)
[2018-10-23] MEDS ORDERED: DIPHENHYDRAMINE HCL 50 MG/ML VIAL IV PRN (14:04)
[2018-10-23] MEDS ORDERED: FENTANYL CITRATE INJ/PF 100 MCG/2 ML AMPUL IV PRN ×3 (14:04)
--- NOTE | 2018-10-23 15:04 | Operative Report ---
Operative Report DATE OF SURGERY: 10/23/18 Operative Report: The risks, benefits and alternatives of the procedure including the risks of bleeding, have been explained to the patient in detail and informed consent has been obtained. The patient is taken back to the operating room and placed in the left, lateral decubital position. Timeout was called. Propofol medication is administered. A rectal examination is done which did not reveal any masses, tears or fissures. An Olympus videoscope was introduced into the patient's rectum. The scope was then carefully advanced all the way to the anastomosis. Ulcer has healed. The rest of the colon does otherwise appear to be intact without any masses polyps or AVMs. Some internal hemorrhoids are noted retroflexion is done The risks benefits and alternatives of the procedure explained to the patient in detail and informed consent is obtained.A GIF Olympus video scope was inserted into the patient's mouth and hypopharynx, the esophagus is identified intubated and insufflated, the scope was then advanced through the esophagus stomach and duodenum, retroflexion maneuver is done ,the esophagus stomach and first and second portions of the duodenum examined. PREOPERATIVE DIAGNOSIS: History of colonic ulcers. Heme positive stool. Nausea vomiting POSTOPERATIVE DIAGNOSIS: Gastritis status post biopsy rule out Helicobacter pylori. Hiatal hernia. Gastric polyp status post biopsy. Healed ulceration in the colon. Diverticulosis. Internal hemorrhoids OPERATION: Diagnostic colonoscopy. EGD with biopsy SURGEON: PATRICIA ANGEL ANESTHESIA: LMAC TISSUE REMOVED OR ALTERED: As noted above. COMPLICATIONS: None. ESTIMATED BLOOD LOSS: None. INTRAOPERATIVE FINDINGS: As noted above. PROCEDURE: Patient tolerated the procedure well. No immediate postprocedure complications are noted. Patient is sent back to [facility] in good condition. She is then sent back to her room in good condition. Wait on the biopsies. Resume previous diet Resume previous activity level
[2018-10-23] MEDS: FUROSEMIDE 20 MG TABLET PO SCH (15:28)
--- NOTE | 2018-10-23 21:17 | PDOC PROGRESS REPORT ---
Subjective Progress Note for:: 10/23/18 Subjective:: Patient seen on morning rounds. Remains stable. She is scheduled for endoscopy. Pt is denying any chest arm or neck discomfort. Patient denying any PND, orthopnea. Patient denied any sustained palpitations, dizziness, syncope, near syncope. Patient denying any fever chills. Patient denying any other significant discomfort. Patient is maintaining sinus rhythm. Review of systems: Rest review of systems negative. Medications: Medications have been reviewed. Reason For Visit: DIONNE WITH HYPERKALEMIA Physical Exam Vital Signs: Temp Pulse Resp BP Pulse Ox 97.6 F 92 20 129/67 H 97 10/23/18 18:15 10/23/18 19:00 10/23/18 18:15 10/23/18 18:15 10/23/18 18:15 Intake & Output 10/22/18 10/23/18 10/24/18 06:59 06:59 06:59 Intake Total 5567 936 8210 Output Total 900 0 Balance 1450 -542 1147 Weight 42.9 kg 42.9 kg Exam: GENERAL: well-nourished and in no acute distress. Alert and oriented x2 HEAD: Atraumatic, normocephalic. EYES: MARIBETH, sclera anicteric, conjunctiva are normal. ENT: Moist mucous membranes. No oral ulcerations or bleeding gums noted. No obvious ear, nose or throat abnormalities noted. NECK: supple without lymphadenopathy. Trachea is central. No cervical or axillary lymphadenopathy noted. Carotids are 2+, JVD WNL LUNGS: Bilateral mild wheezes rales or rhonchi noted. No significant dullness noted on percussion. CHEST: Palpation of the chest wall shows no significant chest wall tenderness. 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 ABDOMEN: Soft, no significant tenderness appreciated, normoactive bowel sounds. No guarding, no rebound. No rigidity noted . No masses appreciated. EXTREMITIES: Pedal pulses are 1-2+, no calf tenderness noted. No clubbing or cyanosis. negative pedal edema noted NEUROLOGICAL: Focused neurological exam showed no significant neurologic deficit. Normal speech, no focal weakness appreciated. PSYCH: Normal mood, normal affect. Judgment and insight not checked. SKIN: No significant ecchymosis, skin is noted to be warm. MUSCULOSKELETAL EXAM: No significant acute joint swelling noted. Results Laboratory Results: 10/23/18 06:14 10/23/18 06:14 10/23/18 10/23/18 06:14 06:14 WBC 8.6 RBC 3.82 Hgb 10.6 L Hct 31.1 L MCV 81 MCH 27.6 MCHC 34.0 RDW 17.1 H Plt Count 198 Seg Neutrophils % Not Reportable Lymphocytes % Not Reportable Monocytes % Not Reportable Eosinophils % Not Reportable Basophils % Not Reportable Absolute Neutrophils Not Reportable Absolute Lymphocytes Not Reportable Absolute Monocytes Not Reportable Absolute Eosinophils Not Reportable Absolute Basophils Not Reportable Sodium 133.2 L Potassium 3.7 Chloride 104 Carbon Dioxide 20 L Anion Gap 9 BUN 32 H Creatinine 0.87 Est GFR ( Amer) > 60 Est GFR (Non-Af Amer) > 60 Glucose 107 Calcium 9.0 10/17/18 10/17/18 10/17/18 18:30 18:30 21:35 Creatine Kinase 106 CK-MB (CK-2) 4.12 Troponin I 0.034 0.026 NT-Pro-B Natriuret Pep 511 H Impressions: Chest X-Ray 10/17/18 17:37 IMPRESSION: Apparent scarring in the right lung. No acute cardiopulmonary findings. Assessment & Plan - Diagnosis (1) Cardiac dysrhythmia, unspecified Qualifiers: Premature depolarization type: ventricular Is this a current diagnosis for this admission?: Yes (2) Acute kidney injury superimposed on chronic kidney disease Is this a current diagnosis for this admission?: Yes (3) Anemia Qualifiers: Anemia type: unspecified type Qualified Code(s): D64.9 - Anemia, unspecified Is this a current diagnosis for this admission?: Yes (4) Rodriguez's palsy Is this a current diagnosis for this admission?: Yes (5) Hyperkalemia Is this a current diagnosis for this admission?: Yes (6) DIONNE (acute kidney injury) Is this a current diagnosis for this admission?: Yes (7) Acute chronic obstructive pulmonary disease with respiratory failure Is this a current diagnosis for this admission?: Yes (8) [place] disease Is this a current diagnosis for this admission?: Yes (10) Coronary artery disease Qualifiers: Coronary Disease-Associated Artery/Lesion type: unspecified vessel or lesion type [place] vs. transplanted heart: [place] heart Is this a current diagnosis for this admission?: Yes (11) Paroxysmal atrial fibrillation Is this a current diagnosis for this admission?: Yes - Notes Notes: Patient has numerous medical problems. She is also quite a bit debilitated. Eliquis was stopped as risk benefit did not favor continuation. Patient's anemia has improved. Do not feel patient would be a candidate for any invasive cardiac evaluation. Continue management of her underlying pulmonary condition which seems quite severe. Agree with proceeding with GI evaluation as anemia is also significant problems. - Time Time with patient: 15-25 minutes Medications reviewed and adjusted accordingly: Yes
[2018-10-23] MEDS: LATANOPROST 0.005% OPH SOLN 2.5 ML OU SCH (21:33)
--- NOTE | 2018-10-24 08:07 | PDOC PROGRESS REPORT ---
Subjective Progress Note for:: 10/24/18 Subjective:: patient underwent EGD and colonoscopy yesterday had some gastritis and biopsies are obtained the previous ulcer in the colon has healed some internal hemorrhoids and occasional diverticulum noted patient tolerated well with minimal sedation daughter was updated with regards to findings Reason For Visit: DIONNE WITH HYPERKALEMIA Physical Exam Vital Signs: Temp Pulse Resp BP Pulse Ox 98.2 F 80 16 133/59 H 100 10/23/18 19:29 10/24/18 02:00 10/23/18 20:45 10/23/18 19:29 10/23/18 20:45 Intake & Output 10/23/18 10/24/18 10/25/18 06:59 06:59 06:59 Intake Total 358 1347 Output Total 900 0 Balance -542 1347 Weight 42.9 kg 47.3 kg General appearance: PRESENT: no acute distress, well-developed, well-nourished Head exam: PRESENT: atraumatic, normocephalic Eye exam: PRESENT: EOMI, PERRLA. ABSENT: nystagmus, periorbital swelling, scleral icterus Mouth exam: PRESENT: moist, neck supple Throat exam: ABSENT: tonsillar exudate, tonsillogmegaly Neck exam: ABSENT: meningismus, tenderness, thyromegaly Respiratory exam: PRESENT: symmetrical, unlabored. ABSENT: tachypnea, wheezes Cardiovascular exam: ABSENT: gallop, systolic murmur Pulses: PRESENT: normal carotid pulses GI/Abdominal exam: PRESENT: soft. ABSENT: rebound, rigid, tenderness Extremities exam: ABSENT: joint swelling, pedal edema Neurological exam: PRESENT: oriented to time, oriented to situation, CN II-XII grossly intact Focused psych exam: ABSENT: restlessness Skin exam: PRESENT: normal color. ABSENT: mottled, pallor, urticaria, vesicles Results Laboratory Results: 10/23/18 06:14 10/23/18 06:14 10/17/18 10/17/18 10/17/18 18:30 18:30 21:35 Creatine Kinase 106 CK-MB (CK-2) 4.12 Troponin I 0.034 0.026 NT-Pro-B Natriuret Pep 511 H Impressions: Chest X-Ray 10/17/18 17:37 IMPRESSION: Apparent scarring in the right lung. No acute cardiopulmonary findings. Assessment & Plan - Diagnosis (1) Heme positive stool Is this a current diagnosis for this admission?: Yes Plan: likely secondary to non specific gastritis vs due to residual iron patient stable continue PPI for now patient likely does not need further colonoscopy patient can be followed as outpatient (2) Anemia Qualifiers: Anemia type: unspecified type Qualified Code(s): D64.9 - Anemia, unspecified Is this a current diagnosis for this admission?: Yes - Time Time Spent with patient: 15-24 minutes
[2018-10-24] MEDS: ACETYLCYSTEINE 10% NEB 400 MG/4 ML VIAL NEB SCH ×2 (09:08→21:12)
[2018-10-24] MEDS: LEVALBUTEROL HCL NEB 0.63 MG/3 ML AMPUL NEB PRN ×2 (09:08→21:14)
[2018-10-24] MEDS: BUDESONIDE NEB 0.5 MG/2 ML AMPUL NEB SCH ×2 (09:08→21:13)
[2018-10-24] MEDS ORDERED: EPOETIN ALFA INJ 20000 UNIT/1 ML VIAL (RENAL) SUBCUT ONE (09:30)
[2018-10-24] MEDS: DRONEDARONE HYDROCHLORIDE 400 MG TABLET PO SCH ×2 (09:38→17:43)
[2018-10-24] MEDS: MULTIVITAMIN TABLET PO SCH (09:38)
[2018-10-24] MEDS: SULFAMETHOXAZOLE/TRIMETHOPRIM 800-160 MG TABLET PO SCH (09:39)
[2018-10-24] MEDS: GABAPENTIN 400 MG CAPSULE PO SCH ×3 (09:40→17:44)
[2018-10-24] MEDS: CHOLECALCIFEROL (D3) 1,000 UNIT TABLET PO SCH (09:40)
[2018-10-24] MEDS: VALACYCLOVIR HCL 500 MG TABLET PO SCH ×3 (09:40→17:44)
[2018-10-24] MEDS: CALCIUM CARBONATE 500 MG TABLET PO SCH (09:40)
[2018-10-24] MEDS: CYANOCOBALAMIN (VITAMIN B-12) 1,000 MCG TABLET PO SCH (09:41)
[2018-10-24] MEDS: FERROUS SULFATE 325 MG TABLET PO SCH ×2 (09:41→17:44)
[2018-10-24] MEDS: BUSPIRONE HCL 10 MG TABLET PO SCH ×3 (09:41→22:28)
[2018-10-24] MEDS: PREDNISONE 20 MG TABLET PO SCH (09:41)
[2018-10-24] MEDS: DILTIAZEM HCL 240 MG CAPSULE.CR PO SCH ×2 (09:41→22:19)
[2018-10-24] MEDS: LANSOPRAZOLE 15 MG TAB.RAP.DR PO SCH ×2 (09:41→17:43)
--- NOTE | 2018-10-24 09:55 | PDOC PROGRESS REPORT ---
Subjective Progress Note for:: 10/24/18 Subjective:: For the endoscopy and colonoscopy no active source of the bleeding is found Patient's denied any chest pain denied any shortness of the breath Patient is still very weak Discussed with the daughter on the bedside patients may get a benefit to the rehab's but patients do not want to go We will continue to monitor the patient in a couple of days with the physical therapy still not getting improved with the strength needs to go to the rehab Reason For Visit: DIONNE WITH HYPERKALEMIA Physical Exam Vital Signs: Temp Pulse Resp BP Pulse Ox 98.2 F 84 12 149/53 H 100 10/24/18 09:17 10/24/18 09:17 10/24/18 09:17 10/24/18 09:17 10/24/18 09:17 Intake & Output 10/23/18 10/24/18 10/25/18 06:59 06:59 06:59 Intake Total 358 1347 Output Total 900 0 Balance -542 1347 Weight 42.9 kg 47.3 kg General appearance: PRESENT: no acute distress, well-developed, well-nourished Head exam: PRESENT: atraumatic, normocephalic Eye exam: PRESENT: conjunctiva pink, EOMI, PERRLA. ABSENT: scleral icterus Ear exam: PRESENT: normal external ear exam Mouth exam: PRESENT: moist, tongue midline Neck exam: PRESENT: full ROM. ABSENT: carotid bruit, JVD, lymphadenopathy, thyromegaly Respiratory exam: PRESENT: clear to auscultation koko Cardiovascular exam: PRESENT: RRR. ABSENT: diastolic murmur, rubs, systolic murmur Pulses: PRESENT: normal dorsalis pedis pul, +2 pedal pulses bilateral Vascular exam: PRESENT: normal capillary refill GI/Abdominal exam: PRESENT: normal bowel sounds, soft. ABSENT: distended, guarding, mass, organolmegaly, rebound, tenderness Rectal exam: PRESENT: deferred Neurological exam: PRESENT: alert, awake, oriented to person, oriented to place, oriented to time, oriented to situation, CN II-XII grossly intact. ABSENT: motor sensory deficit Psychiatric exam: PRESENT: appropriate affect, normal mood. ABSENT: homicidal ideation, suicidal ideation Skin exam: PRESENT: dry, intact, warm. ABSENT: cyanosis, rash Results Laboratory Results: 10/23/18 06:14 10/23/18 06:14 10/17/18 10/17/18 10/17/18 18:30 18:30 21:35 Creatine Kinase 106 CK-MB (CK-2) 4.12 Troponin I 0.034 0.026 NT-Pro-B Natriuret Pep 511 H Impressions: Chest X-Ray 10/17/18 17:37 IMPRESSION: Apparent scarring in the right lung. No acute cardiopulmonary findings. Assessment & Plan - Diagnosis (1) Acute kidney injury superimposed on chronic kidney disease Is this a current diagnosis for this admission?: Yes Plan: Clear all resolved (2) Rodriguez's palsy Is this a current diagnosis for this admission?: Yes Plan: on Valtrex (3) [place] disease Is this a current diagnosis for this admission?: Yes Plan: Continues on a prednisone (4) Anemia Qualifiers: Anemia type: unspecified type Qualified Code(s): D64.9 - Anemia, unspecified Is this a current diagnosis for this admission?: Yes Plan: Give her Procrit injections (5) COPD (chronic obstructive pulmonary disease) Qualifiers: COPD type: unspecified COPD Qualified Code(s): J44.9 - Chronic obstructive pulmonary disease, unspecified Is this a current diagnosis for this admission?: Yes Plan: Currently all stable (6) Cardiomyopathy Qualifiers: Cardiomyopathy type: unspecified Qualified Code(s): I42.9 - Cardiomyopathy, unspecified Is this a current diagnosis for this admission?: Yes Plan: Follow with the cardiology (7) Congestive heart failure Qualifiers: Heart failure type: diastolic Heart failure chronicity: chronic Qualified Code(s): I50.32 - Chronic diastolic (congestive) heart failure Is this a current diagnosis for this admission?: Yes Plan: Continues to Lasix (8) Paroxysmal atrial fibrillation Is this a current diagnosis for this admission?: Yes Plan: At this point patient is a not a good candidate for Eliquis as per discussed with the cardiology with ongoing bleeding problems discussed with the daughter understand - Time Time Spent with patient: 25-34 minutes Medications reviewed and adjusted accordingly: Yes Anticipated discharge: Other Within: Other - Plan Summary Plan Summary: We will repeat the CBC and Chem-7 in the morning Continues to physical therapy evaluation Discussed with the daughter on the bedside regarding the patient's current conditions
[2018-10-24] MEDS: POTASSIUM CHLORIDE 10 MEQ CAPSULE.ER PO SCH (11:58)
[2018-10-24] MEDS: INSULIN LISPRO 100 UNIT/ML 3 ML VIAL SUBCUT PRN ×3 (14:37→22:20)
[2018-10-24] MEDS: FUROSEMIDE 20 MG TABLET PO SCH (14:38)
--- NOTE | 2018-10-24 21:37 | PDOC PROGRESS REPORT ---
Subjective Progress Note for:: 10/24/18 Subjective:: Patient seen on morning rounds. Remains stable. She is scheduled for endoscopy. Pt is denying any chest arm or neck discomfort. Patient denying any PND, orthopnea. Patient denied any sustained palpitations, dizziness, syncope, near syncope. Patient denying any fever chills. Patient denying any other significant discomfort. Patient is maintaining sinus rhythm. Review of systems: Rest review of systems negative. Medications: Medications have been reviewed. Reason For Visit: DIONNE WITH HYPERKALEMIA Physical Exam Vital Signs: Temp Pulse Resp BP Pulse Ox 98.0 F 75 16 122/47 L 100 10/24/18 18:00 10/24/18 18:00 10/24/18 11:52 10/24/18 18:00 10/24/18 18:00 Intake & Output 10/23/18 10/24/18 10/25/18 06:59 06:59 06:59 Intake Total 358 1347 720 Output Total 900 0 Balance -542 1347 720 Weight 42.9 kg 47.3 kg Exam: Patient remains clinically stable. Overall exam is unchanged. Patient seems com fortable. Results Laboratory Results: 10/23/18 06:14 10/23/18 06:14 10/17/18 10/17/18 10/17/18 18:30 18:30 21:35 Creatine Kinase 106 CK-MB (CK-2) 4.12 Troponin I 0.034 0.026 NT-Pro-B Natriuret Pep 511 H EKG Comments: Patient is maintaining sinus rhythm. No sustained tachycardia or Enrique arrhythmia noted. Impressions: Chest X-Ray 10/17/18 17:37 IMPRESSION: Apparent scarring in the right lung. No acute cardiopulmonary findings. Assessment & Plan - Diagnosis (1) Cardiac dysrhythmia, unspecified Qualifiers: Premature depolarization type: ventricular Is this a current diagnosis for this admission?: Yes (2) Acute kidney injury superimposed on chronic kidney disease Is this a current diagnosis for this admission?: Yes (3) Anemia Qualifiers: Anemia type: unspecified type Qualified Code(s): D64.9 - Anemia, unspecified Is this a current diagnosis for this admission?: Yes (4) Rodriguez's palsy Is this a current diagnosis for this admission?: Yes (5) Hyperkalemia Is this a current diagnosis for this admission?: Yes (6) DIONNE (acute kidney injury) Is this a current diagnosis for this admission?: Yes (7) Acute chronic obstructive pulmonary disease with respiratory failure Is this a current diagnosis for this admission?: Yes (8) [place] disease Is this a current diagnosis for this admission?: Yes (10) Coronary artery disease Qualifiers: Coronary Disease-Associated Artery/Lesion type: unspecified vessel or lesion type [place] vs. transplanted heart: [place] heart Is this a current diagnosis for this admission?: Yes (11) Paroxysmal atrial fibrillation Is this a current diagnosis for this admission?: Yes - Notes Notes: Gastroenterology procedure reports were reviewed. Patient did tolerate these procedures well. Cardiac acevedo she remains stable. Patient does have significant pulmonary problem and also significant general debility. At this point well recommend continuing current cardiac medications. Will follow patient on PRN basis. Discussed with Dr. Heller. - Time Time with patient: 15-25 minutes
[2018-10-24] MEDS: LATANOPROST 0.005% OPH SOLN 2.5 ML OU SCH (22:20)
[2018-10-25] MEDS: BUSPIRONE HCL 10 MG TABLET PO SCH ×3 (05:19→21:52)
[2018-10-25 06:12] LABS: HEMATOCRIT 32.3 % (36.0-47.0); HEMOGLOBIN 10.9 g/dL (12.0-15.5); MEAN CORPUSCULAR HEMOGLOBIN 27.7 pg (27.0-33.4); MEAN CORPUSCULAR HGB CONC 33.7 g/dL (32.0-36.0); MEAN CORPUSCULAR VOLUME 82 fl (80-97); PLATELET COUNT 258 10^3/uL (150-450); RED BLOOD COUNT 3.93 10^6/uL (3.72-5.28); RED CELL DISTRIBUTION WIDTH 17.5 % (11.5-14.0)
[2018-10-25 06:36] LABS: ANION GAP 9 (5-19); BLOOD UREA NITROGEN 40 mg/dL (7-20); CALCIUM 9.4 mg/dL (8.4-10.2); CARBON DIOXIDE 19 mmol/L (22-30); CHLORIDE 110 mmol/L (98-107); GLUCOSE 107 mg/dL (75-110)
[2018-10-25 06:37] LABS: ABSOLUTE LYMPHOCYTES# (MANUAL) 2.1 10^3/uL (0.5-4.7); ABSOLUTE MONOCYTES # (MANUAL) 0.2 10^3/uL (0.1-1.4); ABSOLUTE NEUTROPHILS# (MANUAL) 7.7 10^3/uL (1.7-8.2); BAND NEUTROPHILS % (MANUAL) 1 % (3-5); BASOPHILS % (MANUAL) 0 % (0-2); EOSINOPHILS % (MANUAL) 0 % (0-6); LYMPHOCYTES % (MANUAL) 21 % (13-45); METAMYELOCYTES % (MANUAL) 1 % (0); MONOCYTES % (MANUAL) 2 % (3-13); SEGMENTED NEUTROPHILS % (MAN) 75 % (42-78); TOTAL CELLS COUNTED 100
[2018-10-25 06:38] LABS: ANISOCYTOSIS 1+; PLATELET COMMENT ADEQUATE; TOXIC GRANULATION SLIGHT
[2018-10-25] MEDS: ACETYLCYSTEINE 10% NEB 400 MG/4 ML VIAL NEB SCH ×2 (09:50→20:35)
[2018-10-25] MEDS: LEVALBUTEROL HCL NEB 0.63 MG/3 ML AMPUL NEB PRN ×2 (09:50→20:36)
[2018-10-25] MEDS: BUDESONIDE NEB 0.5 MG/2 ML AMPUL NEB SCH ×2 (09:50→20:36)
[2018-10-25] MEDS: CHOLECALCIFEROL (D3) 1,000 UNIT TABLET PO SCH (10:18)
[2018-10-25] MEDS: GABAPENTIN 400 MG CAPSULE PO SCH ×3 (10:18→17:06)
[2018-10-25] MEDS: LANSOPRAZOLE 15 MG TAB.RAP.DR PO SCH ×2 (10:18→17:06)
[2018-10-25] MEDS: CALCIUM CARBONATE 500 MG TABLET PO SCH (10:18)
[2018-10-25] MEDS: PREDNISONE 20 MG TABLET PO SCH (10:18)
[2018-10-25] MEDS: MULTIVITAMIN TABLET PO SCH (10:19)
[2018-10-25] MEDS: FERROUS SULFATE 325 MG TABLET PO SCH ×2 (10:19→17:06)
[2018-10-25] MEDS: DILTIAZEM HCL 240 MG CAPSULE.CR PO SCH ×2 (10:19→21:53)
[2018-10-25] MEDS: CYANOCOBALAMIN (VITAMIN B-12) 1,000 MCG TABLET PO SCH (10:19)
[2018-10-25] MEDS: VALACYCLOVIR HCL 500 MG TABLET PO SCH ×3 (10:19→17:06)
[2018-10-25] MEDS: DRONEDARONE HYDROCHLORIDE 400 MG TABLET PO SCH ×2 (10:20→17:08)
[2018-10-25] MEDS: CARBOXYMETHYLCELLULOSE SOD 0.5% 0.4 ML DROPERETTE OU PRN (10:20)
[2018-10-25] MEDS: DIGOXIN 0.125 MG TABLET PO SCH (10:21)
[2018-10-25] MEDS: INSULIN LISPRO 100 UNIT/ML 3 ML VIAL SUBCUT PRN ×2 (16:30→21:51)
--- NOTE | 2018-10-25 18:32 | PDOC PROGRESS REPORT ---
Subjective Progress Note for:: 10/25/18 Subjective:: She was seen by the bedside, she has no new complaints Reason For Visit: DIONNE WITH HYPERKALEMIA Physical Exam Vital Signs: Temp Pulse Resp BP Pulse Ox 98.0 F 81 20 105/32 L 100 10/25/18 11:51 10/25/18 14:00 10/25/18 11:51 10/25/18 11:51 10/25/18 11:51 Intake & Output 10/24/18 10/25/18 10/26/18 06:59 06:59 06:59 Intake Total 1347 720 700 Output Total 0 Balance 1347 720 700 Weight 47.3 kg 47.2 kg General appearance: PRESENT: no acute distress Eye exam: PRESENT: PERRLA Respiratory exam: PRESENT: clear to auscultation koko Cardiovascular exam: PRESENT: +S1, +S2 Neurological exam: PRESENT: alert Results Laboratory Results: 10/25/18 05:20 10/25/18 05:20 10/25/18 10/25/18 05:20 05:20 WBC 10.0 RBC 3.93 Hgb 10.9 L Hct 32.3 L MCV 82 MCH 27.7 MCHC 33.7 RDW 17.5 H Plt Count 258 Seg Neutrophils % Not Reportable Lymphocytes % Not Reportable Monocytes % Not Reportable Eosinophils % Not Reportable Basophils % Not Reportable Absolute Neutrophils Not Reportable Absolute Lymphocytes Not Reportable Absolute Monocytes Not Reportable Absolute Eosinophils Not Reportable Absolute Basophils Not Reportable Sodium 138.0 Potassium 4.0 Chloride 110 H Carbon Dioxide 19 L Anion Gap 9 BUN 40 H Creatinine 1.51 H Est GFR ( Amer) 40 L Est GFR (Non-Af Amer) 33 L Glucose 107 Calcium 9.4 10/17/18 10/17/18 10/17/18 18:30 18:30 21:35 Creatine Kinase 106 CK-MB (CK-2) 4.12 Troponin I 0.034 0.026 NT-Pro-B Natriuret Pep 511 H Impressions: Chest X-Ray 10/17/18 17:37 IMPRESSION: Apparent scarring in the right lung. No acute cardiopulmonary findings. Assessment & Plan - Diagnosis (1) DIONNE (acute kidney injury) Is this a current diagnosis for this admission?: Yes (2) [place] disease Is this a current diagnosis for this admission?: Yes - Plan Summary Plan Summary: Continue treatment
[2018-10-25] MEDS: LATANOPROST 0.005% OPH SOLN 2.5 ML OU SCH (21:53)
[2018-10-26 07:06] LABS: ANION GAP 8 (5-19); BLOOD UREA NITROGEN 57 mg/dL (7-20); CALCIUM 9.3 mg/dL (8.4-10.2); CARBON DIOXIDE 19 mmol/L (22-30); CHLORIDE 111 mmol/L (98-107); GLUCOSE 121 mg/dL (75-110); SODIUM 137.8 mmol/L (137-145)
[2018-10-26] MEDS: BUSPIRONE HCL 10 MG TABLET PO SCH ×3 (08:11→22:25)
[2018-10-26] MEDS: ACETYLCYSTEINE 10% NEB 400 MG/4 ML VIAL NEB SCH ×2 (08:26→20:05)
[2018-10-26] MEDS: LEVALBUTEROL HCL NEB 0.63 MG/3 ML AMPUL NEB PRN ×2 (08:26→20:05)
[2018-10-26] MEDS: BUDESONIDE NEB 0.5 MG/2 ML AMPUL NEB SCH ×2 (08:27→20:05)
[2018-10-26] MEDS: PREDNISONE 20 MG TABLET PO SCH (09:22)
[2018-10-26] MEDS: GABAPENTIN 400 MG CAPSULE PO SCH ×3 (09:22→17:03)
[2018-10-26] MEDS: MULTIVITAMIN TABLET PO SCH (09:22)
[2018-10-26] MEDS: CALCIUM CARBONATE 500 MG TABLET PO SCH (09:22)
[2018-10-26] MEDS: LANSOPRAZOLE 15 MG TAB.RAP.DR PO SCH ×2 (09:22→17:03)
[2018-10-26] MEDS: CYANOCOBALAMIN (VITAMIN B-12) 1,000 MCG TABLET PO SCH (09:22)
[2018-10-26] MEDS: DRONEDARONE HYDROCHLORIDE 400 MG TABLET PO SCH ×2 (09:22→17:04)
[2018-10-26] MEDS: FERROUS SULFATE 325 MG TABLET PO SCH ×2 (09:22→17:03)
[2018-10-26] MEDS: DILTIAZEM HCL 240 MG CAPSULE.CR PO SCH ×2 (09:22→22:24)
[2018-10-26] MEDS: CHOLECALCIFEROL (D3) 1,000 UNIT TABLET PO SCH (09:22)
[2018-10-26] MEDS: CARBOXYMETHYLCELLULOSE SOD 0.5% 0.4 ML DROPERETTE OU PRN (09:23)
[2018-10-26] MEDS: VALACYCLOVIR HCL 500 MG TABLET PO SCH ×3 (09:23→17:08)
--- NOTE | 2018-10-26 15:05 | PDOC PROGRESS REPORT ---
Subjective Progress Note for:: 11/02/18 Subjective:: She was seen by the bedside, she has no new complaints Reason For Visit: DIONNE WITH HYPERKALEMIA Physical Exam Vital Signs: Temp Pulse Resp BP Pulse Ox 97.5 F 60 18 164/56 H 94 10/26/18 03:37 10/26/18 08:27 10/26/18 08:27 10/26/18 03:37 10/26/18 08:27 Intake & Output 10/25/18 10/26/18 10/27/18 06:59 06:59 06:59 Intake Total 720 1020 900 Balance 720 1020 900 Weight 47.2 kg 45.8 kg General appearance: PRESENT: no acute distress Eye exam: PRESENT: PERRLA Respiratory exam: PRESENT: decreased breath sounds Cardiovascular exam: PRESENT: +S1, +S2 GI/Abdominal exam: PRESENT: soft Neurological exam: PRESENT: alert Results Laboratory Results: 10/25/18 05:20 10/26/18 05:52 10/26/18 05:52 Sodium 137.8 Potassium 4.0 Chloride 111 H Carbon Dioxide 19 L Anion Gap 8 BUN 57 H Creatinine 1.81 H Est GFR ( Amer) 33 L Est GFR (Non-Af Amer) 27 L Glucose 121 H Calcium 9.3 10/17/18 10/17/18 10/17/18 18:30 18:30 21:35 Creatine Kinase 106 CK-MB (CK-2) 4.12 Troponin I 0.034 0.026 NT-Pro-B Natriuret Pep 511 H Impressions: Chest X-Ray 10/17/18 17:37 IMPRESSION: Apparent scarring in the right lung. No acute cardiopulmonary f indings. Assessment & Plan - Diagnosis (1) DIONNE (acute kidney injury) Is this a current diagnosis for this admission?: Yes Plan: Continue treatment (2) [place] disease Is this a current diagnosis for this admission?: Yes
[2018-10-26] MEDS: INSULIN LISPRO 100 UNIT/ML 3 ML VIAL SUBCUT PRN ×2 (17:02→22:23)
[2018-10-26] MEDS: LATANOPROST 0.005% OPH SOLN 2.5 ML OU SCH (22:24)
[2018-10-27 05:19] LABS: ANION GAP 10 (5-19); BLOOD UREA NITROGEN 64 mg/dL (7-20); CALCIUM 9.6 mg/dL (8.4-10.2); CARBON DIOXIDE 17 mmol/L (22-30); CHLORIDE 114 mmol/L (98-107); GLUCOSE 114 mg/dL (75-110); POTASSIUM 4.1 mmol/L (3.6-5.0); SODIUM 140.8 mmol/L (137-145)
[2018-10-27] MEDS: BUSPIRONE HCL 10 MG TABLET PO SCH (09:01)
[2018-10-27] MEDS: LEVALBUTEROL HCL NEB 0.63 MG/3 ML AMPUL NEB PRN (09:06)
[2018-10-27] MEDS: ACETYLCYSTEINE 10% NEB 400 MG/4 ML VIAL NEB SCH (09:06)
[2018-10-27] MEDS: BUDESONIDE NEB 0.5 MG/2 ML AMPUL NEB SCH (09:07)
[2018-10-27] MEDS: PREDNISONE 20 MG TABLET PO SCH (10:14)
[2018-10-27] MEDS: GABAPENTIN 400 MG CAPSULE PO SCH (10:14)
[2018-10-27] MEDS: MULTIVITAMIN TABLET PO SCH (10:14)
[2018-10-27] MEDS: DILTIAZEM HCL 240 MG CAPSULE.CR PO SCH (10:14)
[2018-10-27] MEDS: LANSOPRAZOLE 15 MG TAB.RAP.DR PO SCH (10:15)
[2018-10-27] MEDS: CYANOCOBALAMIN (VITAMIN B-12) 1,000 MCG TABLET PO SCH (10:15)
[2018-10-27] MEDS: CHOLECALCIFEROL (D3) 1,000 UNIT TABLET PO SCH (10:15)
[2018-10-27] MEDS: SULFAMETHOXAZOLE/TRIMETHOPRIM 800-160 MG TABLET PO SCH (10:15)
[2018-10-27] MEDS: CALCIUM CARBONATE 500 MG TABLET PO SCH (10:15)
[2018-10-27] MEDS: FERROUS SULFATE 325 MG TABLET PO SCH (10:15)
[2018-10-27] MEDS: DRONEDARONE HYDROCHLORIDE 400 MG TABLET PO SCH (10:15)
[2018-10-27] MEDS: VALACYCLOVIR HCL 500 MG TABLET PO SCH (10:16)
[2018-10-27] MEDS: POTASSIUM CHLORIDE 10 MEQ CAPSULE.ER PO SCH (10:21)
[2018-10-27 10:41] VITALS: BP 131/44
--- NOTE | 2018-10-27 13:32 | PDOC DISCHARGE SUMMARY ---
General - Admit/Disc Date/PCP Admission Date/Primary Care Provider: 10/19/18 11:09 KEILY CHRISTIANSON MD Discharge Date: 10/27/18 - Discharge Diagnosis (1) Acute kidney injury superimposed on chronic kidney disease Is this a current diagnosis for this admission?: Yes Summary: Today all stable patients see outpatients Dr. Powers (2) Rodriguez's palsy Is this a current diagnosis for this admission?: Yes Summary: Clear all stable (3) Anemia Is this a current diagnosis for this admission?: Yes (4) [place] disease Is this a current diagnosis for this admission?: Yes Summary: on the prednisone daily (5) COPD (chronic obstructive pulmonary disease) Is this a current diagnosis for this admission?: Yes Summary: Treatment patients follow outpatient Dr. Patino (6) Cardiomyopathy Is this a current diagnosis for this admission?: Yes Summary: Currently all stable (7) Congestive heart failure Is this a current diagnosis for this admission?: Yes Summary: Continues to current medications (8) Paroxysmal atrial fibrillation Is this a current diagnosis for this admission?: Yes Summary: Patient high risk for the bleeding and at this point discussed with the cardiology suggest the disc continues to Eliquis (9) Anemia Is this a current diagnosis for this admission?: Yes Summary: Is an endoscopy and colonoscopy all stable Patients need a Procrit injections due to chronic kidney disease patients received the 20,[address] Powers - Additional Information Resuscitation Status: Do Not Resuscitate Discharge Diet: Diabetic Discharge Activity: Activity As Tolerated Prescriptions: Buspirone HCl [Buspar 10 mg Tablet] 10 mg PO Q8 #90 tablet Home Medications: Apixaban [Eliquis] 5 mg PO MOWEFR 03/22/18 Budesonide 0.5 mg NEB BID 03/22/18 Calcium Carbonate [Calcium] 600 mg PO DAILY 03/22/18 Cholecalciferol (Vitamin D3) [Vitamin D3 1000 Unit Tablet] 1,000 unit PO DAILY 03/22/18 Digoxin [Lanoxin 0.125 mg Tablet] 0.125 mg PO MOWEFR@1000 03/22/18 Dronedarone Hydrochloride [Multaq 400 mg Tablet] 400 mg PO BID 03/22/18 Fenofibrate Nanocrystallized [Fenofibrate] 145 mg PO DAILY 03/22/18 Ferrous Sulfate [Ferosul] 325 mg PO BID 03/22/18 Furosemide [Lasix] 40 mg PO MOTUWETHFR 03/22/18 Gabapentin 800 mg PO TID 03/22/18 Hum Insulin NPH/Reg Insulin Hm [Novolin 70-30 100 Unit/ml Vial] 0 unit SQ .SLID ING SCALE 03/22/18 Levalbuterol HCl [Xopenex Neb 0.63 mg/3 ml Ampul] 0.63 mg NEB PRN PRN 03/22/18 Levalbuterol Tartrate [Xopenex Hfa] 1 puff IH PRN PRN 03/22/18 Losartan Potassium 100 mg PO DAILY 03/22/18 Omeprazole 20 mg PO BID 03/22/18 Cyanocobalamin (Vitamin B-12) [Vitamin B-12 100 mcg Tablet] 1,000 mcg PO DAILY 03/23/18 Latanoprost [Xalatan 0.005% Oph Soln 2.5 ml] 1 drop OU QHS 03/23/18 Acetylcysteine [Mucomist 10% Neb 400 mg/4 mL Vial] 200 mg IH BID 03/25/18 Prednisone [Deltasone 20 mg Tablet] 20 mg PO DAILY 03/25/18 Acetaminophen [Tylenol 325 mg Tablet] 650 mg PO BID 10/18/18 Diltiazem HCl [Diltiazem 24Hr ER] 240 mg PO BID 10/18/18 Ipratropium [place] [Atrovent 0.02% Neb 0.5 mg/2.5 ml Ampul] 0.5 mg NEB PRN PRN 10/18/18 Multivit-Min36/Iron/Folic Acid [Geritol Complete Tablet] 1 each PO DAILY 10/18/18 Potassium Chloride [Klor-Con 10 Meq Capsule ER] 10 meq PO MOWEFR 10/18/18 Sulfamethoxazole/Trimethoprim [Bactrim 400-80 mg Tablet] 1 each PO MOWEFR 10/18/18 Valacyclovir HCl [Valtrex] 1,000 mg PO TID 10/18/18 Buspirone HCl [Buspar 10 mg Tablet] 10 mg PO Q8 #90 tablet 10/27/18 History of Present Illness History of Present Illness: JESSY PARKER is a 77 year old female This is a 77-year-old female recently diagnosed Rodriguez's palsy and increasing the more anxiety and not feeling well came to the emergency department with friend the found with acute renal failure Patient's giving IV fluid in the hold the [facility] Hospital Course Hospital Course: This is a 77-year-old female presenting the emergency department with increasing more anxiety and short of breath and patient's diagnosed with the acute renal failure Patient was recently diagnosed with the Rodriguez's palsy Patient also seen by the pulmonary Dr. Patino patient also seen by Dr. Todd the cardiology Patient underwent for the endoscopy and colonoscopy by Dr. Frost Patient's otherwise remained stable Patient still very weak Patient is refused to go to the rehab facility Discussed with the daughter who is the power of contracts attorney willing to take at home and will arrange the home health and physical therapy The patient on multiple comorbidity Patient's overall prognosis is not that great Patient was on Eliquis currently stopped due to the ongoing positive guaiac stool and anemia and discussed with the cardiology and suggest to continue to hold it Physical Exam Vital Signs: Temp Pulse Resp BP Pulse Ox 97.6 F 61 16 146/66 H 100 10/27/18 10:30 10/27/18 10:30 10/27/18 10:30 10/27/18 10:30 10/27/18 10:30 Intake & Output 10/26/18 10/27/18 10/28/18 06:59 06:59 06:59 Intake Total 1020 1137 Balance 1020 1137 Weight 45.8 kg 45.8 kg General appearance: PRESENT: no acute distress, thin Head exam: PRESENT: atraumatic, normocephalic Eye exam: PRESENT: conjunctiva pink, EOMI, PERRLA. ABSENT: scleral icterus Ear exam: PRESENT: normal external ear exam Mouth exam: PRESENT: moist, tongue midline Neck exam: PRESENT: full ROM. ABSENT: carotid bruit, JVD, lymphadenopathy, thyromegaly Respiratory exam: PRESENT: clear to auscultation koko Cardiovascular exam: PRESENT: RRR. ABSENT: diastolic murmur, rubs, systolic murmur Pulses: PRESENT: normal dorsalis pedis pul, +2 pedal pulses bilateral Vascular exam: PRESENT: normal capillary refill GI/Abdominal exam: PRESENT: normal bowel sounds, soft. ABSENT: distended, guarding, mass, organolmegaly, rebound, tenderness Rectal exam: PRESENT: deferred Musculoskeletal exam: PRESENT: ambulatory Neurological exam: PRESENT: alert, awake, oriented to person, oriented to place, oriented to time, oriented to situation. ABSENT: motor sensory deficit Psychiatric exam: PRESENT: appropriate affect, normal mood. ABSENT: homicidal ideation, suicidal ideation Skin exam: PRESENT: dry, intact, warm. ABSENT: cyanosis, rash Results Laboratory Results: 10/25/18 05:20 10/27/18 04:29 10/27/18 04:29 Sodium 140.8 Potassium 4.1 Chloride 114 H Carbon Dioxide 17 L Anion Gap 10 BUN 64 H Creatinine 1.44 H Est GFR ( Amer) 43 L Est GFR (Non-Af Amer) 35 L Glucose 114 H Calcium 9.6 10/17/18 10/17/18 10/17/18 18:30 18:30 21:35 Creatine Kinase 106 CK-MB (CK-2) 4.12 Troponin I 0.034 0.026 NT-Pro-B Natriuret Pep 511 H Impressions: Chest X-Ray 10/17/18 17:37 IMPRESSION: Apparent scarring in the right lung. No acute cardiopulmonary findings. Qualifiers - * PATIENT BEING DISCHARGED WITH ANY OF THE FOLLOWING DIAGNOSIS: No VTE patient discharged on overlapping Therapy?: Yes Plan Time Spent: Greater than 30 Minutes - Discharge home with the stable conditions Home health and physical therapy Check a CBC and Chem-7 in 1 week Follow outpatients cardiology Follow outpatients nephrology
== END 2018-10-27 11:39 | disposition home health service (06) | DRG 682 ==
LOC: ER 15:33 → UNDOADMOB 23:43 → EH 23:43 → 4S 10-18 06:33 → OBSVTOIN 10-19 11:09
PROVIDERS: ADMIT Internal Medicine Geriatric Medicine; ATTEND Family Medicine
PROC: 3E0F3GC Introduction of Other Therapeutic Substance into Respiratory Tract, Percutaneous Approach (ICD-10-PCS; 2018-10-19)
PROC: 30233N1 Transfusion of Nonautologous Red Blood Cells into Peripheral Vein, Percutaneous Approach (ICD-10-PCS; 2018-10-21)
PROC: 0DB68ZX Excision of Stomach, Via Natural or Artificial Opening Endoscopic, Diagnostic (ICD-10-PCS; principal; 2018-10-23 13:30)
PROC: 0DJD8ZZ Inspection of Lower Intestinal Tract, Via Natural or Artificial Opening Endoscopic (ICD-10-PCS; 2018-10-23 13:30)
DX: N17.9 Acute kidney failure, unspecified (principal); J96.01 Acute respiratory failure with hypoxia; I13.0 Hypertensive heart and chronic kidney disease with heart failure and stage 1 through stage 4 chronic kidney disease, or unspecified chronic kidney disease; E27.1 Primary adrenocortical insufficiency; I50.32 Chronic diastolic (congestive) heart failure; I42.9 Cardiomyopathy, unspecified; N18.4 Chronic kidney disease, stage 4 (severe); E87.5 Hyperkalemia; E11.22 Type 2 diabetes mellitus with diabetic chronic kidney disease; I48.0 Paroxysmal atrial fibrillation; J44.9 Chronic obstructive pulmonary disease, unspecified; D63.1 Anemia in chronic kidney disease; F03.90 Unspecified dementia, unspecified severity, without behavioral disturbance, psychotic disturbance, mood disturbance, and anxiety; G51.0 Bell's palsy; E78.5 Hyperlipidemia, unspecified; F41.9 Anxiety disorder, unspecified; I25.10 Atherosclerotic heart disease of native coronary artery without angina pectoris; G47.33 Obstructive sleep apnea (adult) (pediatric); K21.9 Gastro-esophageal reflux disease without esophagitis; K44.9 Diaphragmatic hernia without obstruction or gangrene; M19.90 Unspecified osteoarthritis, unspecified site; K64.8 Other hemorrhoids; K29.70 Gastritis, unspecified, without bleeding; K31.7 Polyp of stomach and duodenum; K57.90 Diverticulosis of intestine, part unspecified, without perforation or abscess without bleeding; I49.3 Ventricular premature depolarization; R19.5 Other fecal abnormalities; H53.9 Unspecified visual disturbance; H91.90 Unspecified hearing loss, unspecified ear; Z79.01 Long term (current) use of anticoagulants; Z79.4 Long term (current) use of insulin; Z79.52 Long term (current) use of systemic steroids; Z86.14 Personal history of Methicillin resistant Staphylococcus aureus infection; Z90.49 Acquired absence of other specified parts of digestive tract; Z82.49 Family history of ischemic heart disease and other diseases of the circulatory system
CPT/HCPCS: 00813; 36415; 36430; 36600; 43239; 45378; 71045; 80048; 80053; 80162; 81001; 82272; 82550; 82553; 82803; 82962; 83735; 83880; 84484; 85025; 86850; 86900; 86901; 86920; 87086; 88305; 88342; 93005; 93010; 93306; 94660; 96360; 96361; 99285; G0378; J1815; J2704; J3490; J7030; J7512; J7614; P9016; Q4081

== ENCOUNTER → 2018-12-24 | Outpatient (CLI) | payer MEDICARE, OTHER ==
[2018-12-24 10:44] LABS: HEMATOCRIT 28.7 % (36.0-47.0); HEMOGLOBIN 9.7 g/dL (12.0-15.5); MEAN CORPUSCULAR HEMOGLOBIN 28.2 pg (27.0-33.4); MEAN CORPUSCULAR HGB CONC 33.9 g/dL (32.0-36.0); MEAN CORPUSCULAR VOLUME 83 fl (80-97); PLATELET COUNT 244 10^3/uL (150-450); RED BLOOD COUNT 3.45 10^6/uL (3.72-5.28); RED CELL DISTRIBUTION WIDTH 18.1 % (11.5-14.0); WHITE BLOOD COUNT 7.5 10^3/uL (4.0-10.5)
[2018-12-24 11:27] LABS: APPEARANCE,URINE SLIGHTLY-CLOUDY; BILIRUBIN,URINE NEGATIVE (NEGATIVE); COLOR,URINE YELLOW; GLUCOSE, URINE 150 mg/dL (NEGATIVE); KETONES,URINE NEGATIVE (NEGATIVE); LEUKOCYTE ESTERASE,URINE SMALL (NEGATIVE); NITRITE,URINE NEGATIVE (NEGATIVE); PROTEIN,URINE NEGATIVE (NEGATIVE); URINE SPECIFIC GRAVITY 1.015; UROBILINOGEN,URINE NEGATIVE mg/dL (<2.0)
[2018-12-24 12:02] LABS: ANION GAP 9 (5-19); BLOOD UREA NITROGEN 58 mg/dL (7-20); CALCIUM 10.2 mg/dL (8.4-10.2); CARBON DIOXIDE 27 mmol/L (22-30); CHLORIDE 105 mmol/L (98-107); GLUCOSE 242 mg/dL (75-110); PHOSPHORUS 3.4 mg/dL (2.5-4.5); POTASSIUM 4.6 mmol/L (3.6-5.0)
== END ==
LOC: OD 10:05
PROVIDERS: ATTEND Physician Assistant Medical
DX: E11.22 Type 2 diabetes mellitus with diabetic chronic kidney disease (principal); N18.3 Chronic kidney disease, stage 3 (moderate); I50.9 Heart failure, unspecified; D64.9 Anemia, unspecified
CPT/HCPCS: 36415; 80048; 81001; 83970; 84100; 85027

== ENCOUNTER 2019-01-26 17:25 | Emergency (ER) | payer MEDICARE, OTHER ==
[2019-01-26 17:40] VITALS: BP 126/46
--- NOTE | 2019-01-26 18:34 | ER Document Report ---
ED Medical Screen (RME) - General Chief Complaint: Hand Swelling Stated Complaint: HAND PAIN/SWELLING Time Seen by Provider: 01/26/19 18:19 Primary Care Provider: EVANGELINA FRANCO PA-C [Primary Care Provider] - Follow up as needed TRAVEL OUTSIDE OF THE [place] IN LAST 30 DAYS: No - HPI Patient complains to provider of: right hand swelling Notes: 01/26/19 18:31 Patient is here with complaints of right hand swelling. This is been present for 2 weeks. She was seen and had x-rays which showed some arthritic changes but no acute abnormalities. The swelling is gotten significantly worse. Area is painful. Pain is constant, moderate to severe. No fevers. No numbness, tingling, weakness. No chest pain or shortness of breath. Exam Significant pitting edema to the right hand and forearm. There is no erythema. Limited range of motion secondary to pain. Tenderness to palpation. Compartments are soft. Normal radial pulse. Normal cap refill. Patient is nontoxic-appearing otherwise. Plan CBC, CMP, CRP, ESR, venous Doppler, x-rays. Lab work an initial examination was made on the patient as part of the triage process, and it was determined a more comprehensive evaluation was necessary. Initial labs were ordered and patient was transferred to another provider in the ED who assumed care and finished evaluation and plan. An initial examination was made on the patient as part of the triage process, and it was determined a more comprehensive evaluation was necessary. Initial labs were ordered and patient was transferred to another provider in the ED who assumed care and finished evaluation and plan. - Related Data Allergies/Adverse Reactions: aspirin [Aspirin] Allergy (Verified 01/26/19 17:28) Hives colchicine Allergy (Verified 01/26/19 17:28) Hives iodine Allergy (Verified 01/26/19 17:28) Hives NSAIDS (Non-Steroidal Anti-Inflamma Allergy (Verified 01/26/19 17:28) Hives Penicillins Allergy (Verified 01/26/19 17:28) Hives shellfish derived Allergy (Verified 01/26/19 17:28) Hives Past Medical History - Social History Family history: Reviewed & Not Pertinent - Past Medical History Cardiac Medical History: Reports: Hx Atrial Fibrillation, Hx Congestive Heart Failure, Hx Coronary Artery Disease, Hx Hypercholesterolemia, Hx Hypertension Pulmonary Medical History: Reports: Hx Asthma, Hx Bronchitis, Hx Pneumonia, Hx Sleep Apnea Neurological Medical History: Denies: Hx Cerebrovascular Accident, Hx Migraine, Hx Seizures Endocrine Medical History: Reports: Hx Diabetes Mellitus Type 2 Renal/ Medical History: Denies: Hx End Stage Renal Disease, Hx Peritoneal Dialysis GI Medical History: Reports: Hx Gastroesophageal Reflux Disease, 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 - Immunizations History of Influenza Vaccine for 07/2017 - 12/2017 Season: Yes Influenza Administration Date for 07/2017 - 12/2017 Season: 07/14/17 Physical Exam - Vital signs Vitals: Temp Pulse Resp BP Pulse Ox 98.8 F 72 18 126/46 H 95 01/26/19 17:38 01/26/19 17:38 01/26/19 17:38 01/26/19 17:38 01/26/19 17:38 Course - Vital Signs Vital signs: Temp Pulse Resp BP Pulse Ox 98.8 F 72 18 126/46 H 95 01/26/19 17:38 01/26/19 17:38 01/26/19 17:38 01/26/19 17:38 01/26/19 17:38 Doctor's Discharge - Discharge Referrals: EVANGELINA FRANCO PA-C [Primary Care Provider] - Follow up as needed
--- NOTE | 2019-01-26 18:53 | RADIOLOGY REPORT (SQ) ---
EXAM DESCRIPTION: CHEST SINGLE VIEW COMPLETED DATE/TIME: 01/26/2019 6:45 pm REASON FOR STUDY: swelling COMPARISON: 10/17/2018 EXAM PARAMETERS: NUMBER OF VIEWS: One view. TECHNIQUE: Single frontal radiographic view of the chest acquired. RADIATION DOSE: NA LIMITATIONS: None. FINDINGS: LUNGS AND PLEURA: Chronic interstitial changes without evidence of focal airspace disease, pleural effusion pneumothorax. MEDIASTINUM AND HILAR STRUCTURES: Stable. HEART AND VASCULAR STRUCTURES: Normal heart size. Atherosclerotic tortuous aorta. BONES: No acute findings. Degenerative changes of the shoulders bilaterally. Osteopenia. HARDWARE: None in the chest. OTHER: Gas containing loops colon within the left hemiabdomen. IMPRESSION: Stable chronic interstitial changes without definite acute cardiopulmonary process. TECHNICAL DOCUMENTATION: JOB ID: [id number] [employer]- All Rights Reserved Reading location - IP/workstation name: [email or web address]
--- NOTE | 2019-01-26 18:54 | RADIOLOGY REPORT (SQ) ---
EXAM DESCRIPTION: FOREARM RIGHT COMPLETED DATE/TIME: 01/26/2019 6:45 pm REASON FOR STUDY: swelling COMPARISON: None. NUMBER OF VIEWS: Two views. TECHNIQUE: Two radiographic images acquired of the right forearm, including elbow and wrist in at le ast one projection. LIMITATIONS: None. FINDINGS: MINERALIZATION: Osteopenia. BONES: No acute fracture dislocation. Degenerative changes about the elbow. SOFT TISSUES: Vascular calcifications. Soft tissue swelling about the wrist. OTHER: No other significant finding. IMPRESSION: Soft tissue swelling about the wrist without definite acute bony abnormality. Osteopenia. Degenerative changes about the elbow and wrist. TECHNICAL DOCUMENTATION: JOB ID: [id number] [employer]- All Rights Reserved Reading location - IP/workstation name: [email or web address]
--- NOTE | 2019-01-26 18:58 | RADIOLOGY REPORT (SQ) ---
EXAM DESCRIPTION: HAND RIGHT 3 VIEWS COMPLETED DATE/TIME: 01/26/2019 6:45 pm REASON FOR STUDY: swelling COMPARISON: None. EXAM PARAMETERS: NUMBER OF VIEWS: Three views. TECHNIQUE: AP, lateral and oblique radiographic images acquired of the right hand. LIMITATIONS: None. FINDINGS: MINERALIZATION: Osteopenia. BONES: Cortical irregularity and sclerotic band at the scaphoid waist. No evidence of displaced frac ture. Degenerative changes about the wrist with mild osteophytosis and joint space loss at the 1st a nd 2nd carpometacarpal joint predominantly. No additional definite fracture. JOINTS: Osteophytosis and joint space loss at scattered interphalangeal joints and the 1st carpometac arpal joint. SOFT TISSUES: Vascular calcifications. OTHER: No other significant finding. IMPRESSION: No definite fracture. Cortical irregularity and sclerotic band at the scaphoid waist on a single projection may represent nondisplaced fracture. Recommend correlation with scaphoid point tenderness. No additional evidence of displaced fracture. Osteopenia with degenerative changes as above. TECHNICAL DOCUMENTATION: JOB ID: [id number]- All Rights Reserved Reading location - IP/workstation name: [email or web address]
[2019-01-26 19:45] LABS: HEMATOCRIT 28.9 % (36.0-47.0); HEMOGLOBIN 9.5 g/dL (12.0-15.5); MEAN CORPUSCULAR HEMOGLOBIN 27.2 pg (27.0-33.4); MEAN CORPUSCULAR HGB CONC 32.9 g/dL (32.0-36.0); MEAN CORPUSCULAR VOLUME 83 fl (80-97); PLATELET COUNT 421 10^3/uL (150-450); RED CELL DISTRIBUTION WIDTH 17.1 % (11.5-14.0); WHITE BLOOD COUNT 16.2 10^3/uL (4.0-10.5)
[2019-01-26 20:03] LABS: ABSOLUTE LYMPHOCYTES# (MANUAL) 2.4 10^3/uL (0.5-4.7); ABSOLUTE MONOCYTES # (MANUAL) 0.5 10^3/uL (0.1-1.4); ABSOLUTE NEUTROPHILS# (MANUAL) 13.3 10^3/uL (1.7-8.2); BASOPHILS % (MANUAL) 0 % (0-2); EOSINOPHILS % (MANUAL) 0 % (0-6); LYMPHOCYTES % (MANUAL) 15 % (13-45); MONOCYTES % (MANUAL) 3 % (3-13); SEGMENTED NEUTROPHILS % (MAN) 82 % (42-78); TOTAL CELLS COUNTED 100
[2019-01-26 20:05] LABS: ANISOCYTOSIS 1+; OVALOCYTES SLIGHT; PLATELET COMMENT ADEQUATE; POIKILOCYTOSIS SLIGHT; TOXIC VACUOLATION PRESENT
[2019-01-26 20:06] LABS: ALANINE AMINOTRANSFERASE 29 U/L (9-52); ALBUMIN 3.6 g/dL (3.5-5.0); ALKALINE PHOSPHATASE 47 U/L (38-126); ANION GAP 11 (5-19); ASPARTATE AMINO TRANSFERASE 45 U/L (14-36); BILIRUBIN,DIRECT 0.7 mg/dL (0.0-0.4); BILIRUBIN,TOTAL 0.8 mg/dL (0.2-1.3); BLOOD UREA NITROGEN 80 mg/dL (7-20); CALCIUM 10.2 mg/dL (8.4-10.2); CARBON DIOXIDE 21 mmol/L (22-30); CHLORIDE 107 mmol/L (98-107); GLUCOSE 166 mg/dL (75-110); POTASSIUM 4.9 mmol/L (3.6-5.0); SODIUM 138.6 mmol/L (137-145); TOTAL PROTEIN 6.7 g/dL (6.3-8.2)
[2019-01-26 20:17] LABS: C-REACTIVE PROTEIN 201.1 mg/L (<10.0)
[2019-01-26 20:24] LABS: ERYTHROCYTE SEDIMENTATION RATE 114 mm/hr (0-30)
--- NOTE | 2019-01-26 22:41 | RADIOLOGY REPORT (SQ) ---
EXAM DESCRIPTION: US EXTREMITY VEINS UNILATERAL COMPLETED DATE/TME: 01/26/2019 18:29 CLINICAL HISTORY: 78 years Female right arm swelling COMPARISON: None. TECHNIQUE: Duplex imaging performed to evaluate the right upper extremity venous structures. Compression imaging and augmentation imaging performed. FINDINGS: No thrombus is identified in the right upper extremity venous structures. IMPRESSION: No DVT is identified in the right upper extremity.
--- NOTE | 2019-01-26 23:50 | ER Document Report ---
ED General - General Chief Complaint: Hand Swelling Stated Complaint: HAND PAIN/SWELLING Time Seen by Provider: 01/26/19 18:19 Primary Care Provider: KEILY CHRISTIANSON MD [Primary Care Provider] - 01/29/19 Notes: Patient is a 78-year-old female presents with complaint of swelling of the right hand and wrist. Patient's daughters at bedside. She says that the patient has history of severe arthritis. She says that she is also very anxious and is always grabbing and twisting onto her right hand and wrist with her left hand. She is been having intermittent swelling has been come and go for several weeks now. She is been seen by urgent care. She has had splints and x-rays. She is supposed to wear a splint but she does not wear. She is daughter says it is difficult to keep her from pushing and squeezing on the hand and wrist she feels that this may be why she is having recurrent swelling. She has not had any fevers. No abnormal warmth or redness to the hand. No other complaints at this time. TRAVEL OUTSIDE OF THE [place] IN LAST 30 DAYS: No - Related Data Allergies/Adverse Reactions: aspirin [Aspirin] Allergy (Verified 01/26/19 17:28) Hives colchicine Allergy (Verified 01/26/19 17:28) Hives iodine Allergy (Verified 01/26/19 17:28) Hives NSAIDS (Non-Steroidal Anti-Inflamma Allergy (Verified 01/26/19 17:28) Hives Penicillins Allergy (Verified 01/26/19 17:28) Hives shellfish derived Allergy (Verified 01/26/19 17:28) Hives Past Medical History - Social History Smoking Status: Unknown if Ever Smoked Frequency of alcohol use: None Drug Abuse: None Family History: CAD, Hyperlipidemia, Hypertension Patient has suicidal ideation: No Patient has homicidal ideation: No - Past Medical History Cardiac Medical History: Reports: Hx Atrial Fibrillation, Hx Congestive Heart Failure, Hx Coronary Artery Disease, Hx Hypercholesterolemia, Hx Hypertension Pulmonary Medical History: Reports: Hx Asthma, Hx Bronchitis, Hx Pneumonia, Hx Sleep Apnea Neurological Medical History: Denies: Hx Cerebrovascular Accident, Hx Migraine, Hx Seizures Endocrine Medical History: Reports: Hx Diabetes Mellitus Type 2 Renal/ Medical History: Denies: Hx End Stage Renal Disease, Hx Peritoneal Dialysis GI Medical History: Reports: Hx Gastroesophageal Reflux Disease, Hx Hiatal Hernia - Large, with intrathoracic stomach., Hx Ulcerative Colitis Musculoskeletal Medical History: Reports Hx Arthritis Skin Medical History: Denies Hx Psoriasis Psychiatric Medical History: Reports: Hx Depression Traumatic Medical History: Denies: Hx Traumatic Brain Injury Infectious Medical History: Reports: Hx MRSA Past Surgical History: Reports: Hx Abdominal Surgery - colon resection, Hx Appendectomy, Hx Bowel Surgery - colon surgery, Hx Hysterectomy, Other - History of right hemicolectomy, questionable history of ulcerative colitis. Review of Systems - Review of Systems Notes: My Normal Review Basic REVIEW OF SYSTEMS: CONSTITUTIONAL : Denies fever, chills, or sweats. Denies recent illness. RESPIRATORY: Denies cough, cold, or chest congestion. Denies shortness of breath, difficulty breathing, or wheezing. GASTROINTESTINAL: Denies abdominal pain. Denies nausea, vomiting, MUSCULOSKELETAL: Right hand swelling. SKIN: Denies rash or skin lesions. NEUROLOGICAL: Denies sensory or motor loss. ALL OTHER SYSTEMS REVIEWED AND NEGATIVE. Physical Exam - Vital signs Vitals: Temp Pulse Resp BP Pulse Ox 98.8 F 72 18 126/46 H 95 01/26/19 17:38 01/26/19 17:38 01/26/19 17:38 01/26/19 17:38 01/26/19 17:38 - Notes Notes: General Appearance: Well nourished, alert, cooperative, no acute distress, mild to moderate obvious discomfort. Vitals: reviewed, See vital signs table. Eyes: PERRL, EOMI, Conjuctiva clear Extremities: On exam patient does have swelling and edema to the right hand and wrist. She also has bruising over this area. Looking other hand she has obvious bad arthritis deformity to the MCP joints. Patient does not have abnormal redness or warmth on exam. Findings are not consistent with infection. She does have pain to palpation over the swollen area of her hand. Skin: warm, dry, appropriate color, no rash Neuro: speech clear, oriented x 3, normal affect, responds appropriately to questions. Course - Re-evaluation Re-evalutation: 01/27/19 06:43 Patient does have an elevated ESR and CRP. I am not surprised that this is the patient obviously has severe arthritis in looking at her joints and hands. I suspect most likely swelling in her right hand is related to recurrent trauma as the swelling comes and goes and the daughter acknowledges that the swelling seems to become worse if the patient is not wearing her splint starts pushing and squeezing on her hand and wrist. Seems to be ongoing habit. Patient is on 20 mg of prednisone a day. This is because a history of adrenal insufficiency. The daughter does acknowledge that sometimes this has been increased to 40 mg whenever the patient has asthma attacks or arthritis flare. I will temporarily increase her prednisone to 40 mg a day. I talked with him at length about the importance of her wearing splint and to do everything they can to keep her from squeezing and pushing on her hand. I explained to the daughter at this time I do not suspect infection based the fact that this is been to come and go swelling for the last several weeks and seems to be more related to trauma. Also her exam was not consistent with infection and that she does not have abnormal redness or warmth to the hand. Encouraged him to return to ER immediately if she has worsening swelling, fevers, abnormal warmth or redness to the hand. Daughter agrees with plan and patient will be discharged home. Dictation of this chart was performed using voice recognition software; therefore, there may be some unintended grammatical errors. - Vital Signs Vital signs: Temp Pulse Resp BP Pulse Ox 98.8 F 72 18 126/46 H 95 01/26/19 17:38 01/26/19 17:38 01/26/19 17:38 01/26/19 17:38 01/26/19 17:38 - Laboratory Result Diagrams: 01/26/19 19:26 01/26/19 19:26 Laboratory results interpreted by me: 01/26/19 01/26/19 19:26 19:26 WBC 16.2 H RBC 3.50 L Hgb 9.5 L Hct 28.9 L RDW 17.1 H Seg Neuts % (Manual) 82 H Abs Neuts (Manual) 13.3 H ESR 114 H Carbon Dioxide 21 L BUN 80 H Creatinine 1.74 H Est GFR ( Amer) 34 L Est GFR (Non-Af Amer) 28 L Glucose 166 H Direct Bilirubin 0.7 H AST 45 H C-Reactive Protein 201.1 H Discharge - Discharge Clinical Impression: Hand swelling Qualifiers: Laterality: right Qualified Code(s): M79.89 - Other specified soft tissue disorders Condition: Good Disposition: HOME, SELF-CARE Additional Instructions: Please take 40mg of Prednisone a day for the next 5 days. Please watch your blood sugar as the Prednisone may increase your blood sugar. I suspect Mrs. Bateman's hand swelling is related to recurrent trauma from rubbing the wrist in combination with her chronic arthritis. I do not suspect infection at this time as the wrist is not hot or red. please have a low threshold to return to the ER if her wrist becomes hot or red. please follow up with Dr. Crhistianson this week for reevaluation. Please continue to encourage her to wear the wrist splint. Prescriptions: RX: Prednisone [Deltasone 20 mg Tablet] 2 tab PO DAILY 5 Days tablet Referrals: KEILY CHRISTIANSON MD [Primary Care Provider] - 01/29/19
[2019-01-27] MEDS ORDERED: PREDNISONE 20 MG TABLET PO ONE (00:28)
== END 2019-01-27 00:44 | disposition home or self-care (01) ==
LOC: ER 17:25
DX: M79.89 Other specified soft tissue disorders (principal); M19.042 Primary osteoarthritis, left hand; M19.041 Primary osteoarthritis, right hand; M79.641 Pain in right hand; M25.531 Pain in right wrist; F41.9 Anxiety disorder, unspecified; X50.1XXA Overexertion from prolonged static or awkward postures, initial encounter; I50.9 Heart failure, unspecified; I25.10 Atherosclerotic heart disease of native coronary artery without angina pectoris; I11.0 Hypertensive heart disease with heart failure; E11.9 Type 2 diabetes mellitus without complications
CPT/HCPCS: 99284; 36415; 85025; 85652; 86140; 80053; 93971; 71045; 73090; 73130; A9270; J7512

== ENCOUNTER 2019-01-29 17:54 | Inpatient (IN) | payer MEDICARE ==
[2019-01-29 18:38] LABS: HEMATOCRIT 28.4 % (36.0-47.0); HEMOGLOBIN 9.2 g/dL (12.0-15.5); MEAN CORPUSCULAR HEMOGLOBIN 26.5 pg (27.0-33.4); MEAN CORPUSCULAR HGB CONC 32.4 g/dL (32.0-36.0); MEAN CORPUSCULAR VOLUME 82 fl (80-97); PLATELET COUNT 376 10^3/uL (150-450); RED BLOOD COUNT 3.46 10^6/uL (3.72-5.28); RED CELL DISTRIBUTION WIDTH 17.8 % (11.5-14.0); WHITE BLOOD COUNT 17.4 10^3/uL (4.0-10.5)
[2019-01-29 18:57] LABS: ABSOLUTE LYMPHOCYTES# (MANUAL) 0.3 10^3/uL (0.5-4.7); ABSOLUTE MONOCYTES # (MANUAL) 0.5 10^3/uL (0.1-1.4); ABSOLUTE NEUTROPHILS# (MANUAL) 16.5 10^3/uL (1.7-8.2); ANISOCYTOSIS SLIGHT; BASOPHILS % (MANUAL) 0 % (0-2); EOSINOPHILS % (MANUAL) 0 % (0-6); HYPOCHROMASIA SLIGHT; LYMPHOCYTES % (MANUAL) 2 % (13-45); METAMYELOCYTES % (MANUAL) 1 % (0); MONOCYTES % (MANUAL) 3 % (3-13); SEGMENTED NEUTROPHILS % (MAN) 94 % (42-78); TOTAL CELLS COUNTED 100; TOXIC GRANULATION SLIGHT
[2019-01-29 18:58] LABS: PLATELET COMMENT ADEQUATE
[2019-01-29 19:04] LABS: ALANINE AMINOTRANSFERASE 529 U/L (9-52); ALBUMIN 2.6 g/dL (3.5-5.0); ALKALINE PHOSPHATASE 37 U/L (38-126); ANION GAP 13 (5-19); BILIRUBIN,DIRECT 0.8 mg/dL (0.0-0.4); BILIRUBIN,TOTAL 0.9 mg/dL (0.2-1.3); BLOOD UREA NITROGEN 94 mg/dL (7-20); CALCIUM 8.6 mg/dL (8.4-10.2); CARBON DIOXIDE 17 mmol/L (22-30); CHLORIDE 103 mmol/L (98-107); GLUCOSE 207 mg/dL (75-110); POTASSIUM 5.6 mmol/L (3.6-5.0); SODIUM 132.5 mmol/L (137-145); TOTAL PROTEIN 5.2 g/dL (6.3-8.2)
[2019-01-29 19:15] LABS: ASPARTATE AMINO TRANSFERASE 1467 U/L (14-36)
--- NOTE | 2019-01-29 19:34 | RADIOLOGY REPORT (SQ) ---
EXAM DESCRIPTION: CHEST SINGLE VIEW COMPLETED DATE/TIME: 01/29/2019 7:04 pm REASON FOR STUDY: sob, hypoxia COMPARISON: 01/26/2019. EXAM PARAMETERS: NUMBER OF VIEWS: One view. TECHNIQUE: Single frontal radiographic view of the chest acquired. RADIATION DOSE: NA LIMITATIONS: None. FINDINGS: LUNGS AND PLEURA: Chronic interstitial changes. Cannot exclude superimposed pulmonary araceli ma. MEDIASTINUM AND HILAR STRUCTURES: No masses. Contour normal. HEART AND VASCULAR STRUCTURES: Heart size is borderline. BONES: No acute findings. HARDWARE: None in the chest. OTHER: No other significant finding. IMPRESSION: Borderline cardiomegaly with pulmonary edema. TECHNICAL DOCUMENTATION: JOB ID: [id number] [email or web address]- All Rights Reserved Reading location - IP/workstation name: [email or web address]
--- NOTE | 2019-01-29 19:40 | ER Document Report ---
ED General - General Chief Complaint: Altered Mental Status Stated Complaint: ALTERED MENTAL STATUS Time Seen by Provider: 01/29/19 18:27 Cannot obtain history due to: Altered mental status Notes: Patient is a 78-year-old female, history of physical deconditioning, chronic arthritis, CHF, CKD, COPD with oxygen dependence at night, presents by EMS due to "not acting like herself". Apparently this started earlier today. The patient herself is unable to provide any meaningful history. No additional history can be obtained at initial assessment as there is no family present at the bedside. Apparently the patient was fine as recently as yesterday, normally ambulatory and interactive. TRAVEL OUTSIDE OF THE [place] IN LAST 30 DAYS: No - Related Data Allergies/Adverse Reactions: aspirin [Aspirin] Allergy (Verified 01/26/19 17:28) Hives colchicine Allergy (Verified 01/26/19 17:28) Hives iodine Allergy (Verified 01/26/19 17:28) Hives NSAIDS (Non-Steroidal Anti-Inflamma Allergy (Verified 01/26/19 17:28) Hives Penicillins Allergy (Verified 01/26/19 17:28) Hives shellfish derived Allergy (Verified 01/26/19 17:28) Hives Past Medical History - General Cannot obtain history due to: Altered mental status - Social History Smoking Status: Former Smoker Frequency of alcohol use: None Drug Abuse: None Lives with: Family Family History: CAD, Hyperlipidemia, Hypertension Patient has suicidal ideation: No Patient has homicidal ideation: No - Past Medical History Cardiac Medical History: Reports: Hx Atrial Fibrillation, Hx Congestive Heart Failure, Hx Coronary Artery Disease, Hx Hypercholesterolemia, Hx Hypertension Pulmonary Medical History: Reports: Hx Asthma, Hx Bronchitis, Hx Pneumonia, Hx Sleep Apnea Neurological Medical History: Denies: Hx Cerebrovascular Accident, Hx Migraine, Hx Seizures Endocrine Medical History: Reports: Hx Diabetes Mellitus Type 2 Renal/ Medical History: Denies: Hx End Stage Renal Disease, Hx Peritoneal Dialysis GI Medical History: Reports: Hx Gastroesophageal Reflux Disease, Hx Hiatal Hernia - Large, with intrathoracic stomach., Hx Ulcerative Colitis Musculoskeletal Medical History: Reports Hx Arthritis Skin Medical History: Denies Hx Psoriasis Psychiatric Medical History: Reports: Hx Depression Traumatic Medical History: Denies: Hx Traumatic Brain Injury Infectious Medical History: Reports: Hx MRSA Past Surgical History: Reports: Hx Abdominal Surgery - colon resection, Hx Appendectomy, Hx Bowel Surgery - colon surgery, Hx Hysterectomy, Other - History of right hemicolectomy, questionable history of ulcerative colitis. Review of Systems - Review of Systems -: Yes ROS unobtainable due to patient's medical condition Physical Exam - Vital signs Vitals: Resp Pulse Ox 10 L 95 01/29/19 18:06 01/29/19 18:06 Interpretation: Tachycardic, Hypoxic, Tachypneic Notes: PHYSICAL EXAMINATION: GENERAL: Frail elderly female in mild respiratory distress HEAD: Atraumatic, normocephalic. EYES: Pupils equal round and reactive to light, extraocular movements intact, sclera anicteric, conjunctiva are normal. ENT: nares patent, oropharynx clear without exudates. Dry mucous membranes. NECK: Normal range of motion, supple without lymphadenopathy LUNGS: Tachypnea, mild respiratory distress, crackles at the bases bilaterally HEART: Regular tachycardia without murmurs ABDOMEN: Soft, nontender, normoactive bowel sounds. No guarding, no rebound. No masses appreciated. EXTREMITIES: Normal range of motion, no pitting or edema. No cyanosis. NEUROLOGICAL: No focal neurological deficits. Moves all extremities spontaneously PSYCH: Lethargic, does not respond to questions with meaningful answers. Is unable to even tell me her name on initial assessment SKIN: Warm, Dry, normal turgor, no rashes or lesions noted. Course - Re-evaluation Re-evalutation: 01/29/190 Patient presents very frail, emaciated, and unwell in appearance. She is lethargic, unable to answer any my questions. She does not normally require oxygen and is saturating at 93 is by nasal cannula. She has crackles at the bases bilaterally and has a wet sounding cough. The patient was apparently 85% on room air when EMS arrived. Apparently at her baseline she is ambulatory and alert and oriented. She does not have a fever. Initial blood pressure for EMS was soft in the 90 systolic but is within acceptable range at the time of my evaluation in the 120 systolic. Patient did not receive any therapies in route to the hospital other than IV fluids. Given patient's markedly ill appearance broad workup has been initiated including chest x-ray, influenza swab testing, blood work, urinalysis, and will continue to reassess the patient 01/29/19 19:39 Patient's laboratories demonstrate worsening renal function, worsening leukocytosis, chest x-ray demonstrates cardiomegaly with pulmonary edema likely accounting for the patient's hypoxia and increased work of breathing. Will transition to BiPAP as patient's work of breathing remains elevated and to increase thoracic pressure to reduce pulmonary edema. I think you lactate pending, will Place Silveira catheter monitor I's and O's. Patient remains critically ill and will continue to be reassessed at regular intervals. 01/29/19 20:21 Patient continues to be very lethargic. At the bedside at this time. We reviewed patient's relatively critical condition. I did confirm that the patient is a DNR/DNI. BiPAP has been placed. Blood gas, ammonia, CT abdomen pelvis without contrast given renal functions are all pending. - Vital Signs Vital signs: Temp Pulse Resp BP Pulse Ox 97.8 F 61 15 115/74 92 01/30/19 00:20 01/30/19 01:45 01/30/19 03:34 01/30/19 00:20 01/30/19 01:45 - Laboratory Result Diagrams: 01/29/19 18:16 01/29/19 18:16 Laboratory results interpreted by me: 01/29/19 01/29/19 01/29/19 18:16 18:16 18:16 WBC 17.4 H RBC 3.46 L Hgb 9.2 L Hct 28.4 L MCH 26.5 L RDW 17.8 H Seg Neuts % (Manual) 94 H Lymphocytes % (Manual) 2 L Metamyelocytes % 1 H Abs Neuts (Manual) 16.5 H Abs Lymphs (Manual) 0.3 L Sodium 132.5 L Potassium 5.6 H Carbon Dioxide 17 L BUN 94 H Creatinine 2.53 H Est GFR ( Amer) 22 L Est GFR (Non-Af Amer) 18 L Glucose 207 H Direct Bilirubin 0.8 H AST 1467 H ALT 529 H Alkaline Phosphatase 37 L NT-Pro-B Natriuret Pep 3250 H Total Protein 5.2 L Albumin 2.6 L - Diagnostic Test Radiology reviewed: Image reviewed, Reports reviewed Radiology results interpreted by me: 01/30/19 03:43 Chest x-ray: Cardiomegaly with associated pulmonary edema pattern - EKG Interpretation by Me Additional EKG results interpreted by me: 01/30/19 03:43 Sinus rhythm, rate 60. No ST elevations or depressions. Prolonged QT at 504. Critical Care Note - Critical Care Note Total time excluding time spent on procedures (mins): 50 Comments: Critical care time spent obtaining history from patient or surrogate, discussions with consultants, development of treatment plan with patient or surrogate, evaluation of patient's response to treatment, examination of patient, ordering and performing treatments and interventions, ordering and review of laboratory studies, re-evaluation of patient's condition, ordering and review of radiographic studies and review of old charts Discharge - Discharge Clinical Impression: Respiratory distress, Acute kidney injury superimposed on chronic kidney disease, Transaminitis Congestive heart failure Qualifiers: Heart failure type: unspecified Heart failure chronicity: acute on chronic Qualified Code(s): I50.9 - Heart failure, unspecified Altered mental status Qualifiers: Altered mental status type: stupor Qualified Code(s): R40.1 - Stupor Condition: Fair Disposition: ADMITTED INPATIENT Admitting Provider: [facility] Unit Admitted: [facility] [place]
[2019-01-29 19:45] LABS: APPEARANCE,URINE SLIGHTLY-CLOUDY; BILIRUBIN,URINE NEGATIVE (NEGATIVE); COLOR,URINE YELLOW; GLUCOSE, URINE NEGATIVE (NEGATIVE); KETONES,URINE NEGATIVE (NEGATIVE); LEUKOCYTE ESTERASE,URINE NEGATIVE (NEGATIVE); NITRITE,URINE NEGATIVE (NEGATIVE); PROTEIN,URINE NEGATIVE (NEGATIVE); URINE SPECIFIC GRAVITY 1.016; UROBILINOGEN,URINE NEGATIVE mg/dL (<2.0)
[2019-01-29 21:00] LABS: VENOUS BLOOD BASE EXCESS -4.6 mmol/L; VENOUS BLOOD HCO3 20.9 mmol/L (20-32); VENOUS BLOOD PCO2 40.4 mmHg (35-63); VENOUS BLOOD PH 7.33 (7.30-7.42)
[2019-01-29 21:31] LABS: A TYPE INFLUENZA AG NEGATIVE (NEGATIVE); B INFLUENZA AG NEGATIVE (NEGATIVE)
--- NOTE | 2019-01-29 21:42 | RADIOLOGY REPORT (SQ) ---
EXAM DESCRIPTION: [facility]: CT ABDOMEN PELVIS WITHOUT IV CONTRAST CLINICAL HISTORY: 78 years Female; increased lfts, ams TECHNIQUE: CT of the abdomen and pelvis without contrast. All CT scans at this facility use dose modulation, iterative reconstruction, and/or weight based dosing when appropriate to reduce radiation dose to as low as reasonably achievable. COMPARISON: None. FINDINGS: Patchy infiltrates in areas of focal consolidation are partially visualized in both lower lobes. Large hiatal hernia is again noted. No adjacent acute edema or extraluminal air. Abdomen: Liver:No focal lesions. No intrahepatic ductal distention. Gallbladder: Nondistended Pancreas:Within normal limits Spleen:Within normal limits Right kidney:No hydronephrosis. No renal or ureteral calculi. Left kidney:No hydronephrosis. No renal or ureteral calculi. Adrenal glands:Within normal limits Vascular structures: Extensive aortic and branch calcifications. No aneurysm. Pelvis: Small bowel:No significant distention. Appendix:Within normal limits Colon:No distention or acute pericolonic edema. No free intraperitoneal fluid or air. Right hip arthroplasty is noted. No dislocation. Severe chronic degenerative changes of the lumbar spine are again noted. There is a mild superior endplate compression fracture of L3, new since 01/01/2018. No acute lumbar spine fractures. Note that evaluation of the bowel and solid organs is somewhat limited due to lack of intravenous and oral contrast. IMPRESSION: 1. Partially visualized bilateral lower lobe infiltrates, suspicious for acute pneumonia. Based on distribution, please correlate with clinical history regarding possibility of aspiration pneumonia. 2. Large hiatal hernia as on prior exam (which increases risk for aspiration) 3. Severe chronic degenerative changes of the lumbar spine, with a new L3 compression fracture since prior exam. No acute fractures. 4. Right hip arthroplasty and other chronic findings as described.
[2019-01-29] MEDS ORDERED: AZITHROMYCIN INJ 500 MG VIAL IV ONE (21:53)
[2019-01-29] MEDS ORDERED: CEFTRIAXONE INJ 1000 MG VIAL IV ONE (21:53)
[2019-01-29] MEDS ORDERED: FUROSEMIDE INJ/PF 20 MG/2 ML SDV IV ONE ×2 (22:01→22:30)
[2019-01-29] MEDS ORDERED: ONDANSETRON HCL INJ/PF 4 MG/2 ML SDV IV PRN (22:04)
[2019-01-29] MEDS ORDERED: ACETAMINOPHEN 325 MG TABLET PO PRN (22:04)
[2019-01-29] MEDS ORDERED: DEXTROSE 50%-WATER 25 GM/50 ML DISP.SYRIN IV PRN ×2 (22:16)
[2019-01-29] MEDS ORDERED: GLUCAGON,HUMAN RECOMB 1 MG INJ IM PRN (22:16)
[2019-01-29] MEDS ORDERED: DEXTROSE 40% GEL 15 GM TUBE PO PRN ×2 (22:16)
[2019-01-29] MEDS ORDERED: FAMOTIDINE INJ/PF 20 MG/2 ML SDV IV ONE (22:30)
[2019-01-29] MEDS ORDERED: CEFEPIME 1 GM/D5W RTU 1 GM/50 ML RTUPB IV ONE (22:30)
[2019-01-29] MEDS ORDERED: IPRATROPIUM/ALBUTEROL 0.5-2.5 MG/3 ML AMPUL NEB ONE (22:30)
--- NOTE | 2019-01-29 22:42 | EKG REPORT ---
SEVERITY:- ABNORMAL ECG - SINUS RHYTHM LAD, CONSIDER LEFT ANTERIOR FASCICULAR BLOCK LOW VOLTAGE IN FRONTAL LEADS BORDERLINE PROLONGED QT INTERVAL : Confirmed by: Pastora Meredith MD 29-Jan-2019 22:41:47
--- NOTE | 2019-01-29 23:17 | RADIOLOGY REPORT (SQ) ---
EXAM DESCRIPTION: US ABDOMEN LIMITED COMPLETED DATE/TME: 01/29/2019 21:58 CLINICAL HISTORY: 78 years, Female, liver failure COMPARISON: CT from today's date TECHNIQUE: Limited right upper quadrant ultrasound LIMITATIONS: None. FINDINGS: Heterogeneous echotexture to the liver suggesting fatty change. No focal liver lesions. No gallstones or gallbladder wall thickening. The CBD measures 6.6 mm in diameter. The right kidney is unremarkable. The visualized abdominal aorta and inferior vena cava are unremarkable. There is a vague cystic focus in the region of the pancreas, which may in part relate to fluid in adjacent bowel but was likely present on prior CT is well. Pancreas is otherwise unremarkable. No ascites IMPRESSION: Fatty infiltrate of change to the liver. There is a vague cystic focus of the pancreas. This could reflect small pseudocyst versus adjacent fluid in bowel versus pancreatic cystadenoma. Malignancy felt unlikely. copyright 2010 [employer]- All Rights Reserved
--- NOTE | 2019-01-30 00:25 | RADIOLOGY REPORT (SQ) ---
EXAM DESCRIPTION: CT HEAD WITHOUT IV CONTRAST COMPLETED DATE/TME: 01/29/2019 00:00 CLINICAL HISTORY: 78 years, Female, ams COMPARISON: 10/15/2018 CT TECHNIQUE: 179 Images stored on PACS. All CT scanners at this facility use dose modulation, iterative reconstruction, and/or weight based dosing when appropriate to reduce radiation dose to as low as reasonably achievable (ALARA). [facility]: Dose Right [facility]: CareDose [facility]: Dose Right [facility]: Teradose 4D [facility]: DataXu LIMITATIONS: None. FINDINGS: The globes are intact. The paranasal sinuses and mastoid air cells are unremarkable. No displaced or depressed skull fracture. No intra or extra-axial hemorrhage. CT is limited for evaluation of acute infarct. Motion artifact. No CT evidence for large or territorial acute infarct. Age-appropriate atrophy with minor small vessel ischemic change. No mass. No midline shift IMPRESSION: Motion artifact. Minor atrophy and minor small vessel ischemic change TECHNICAL DOCUMENTATION: Quality ID # [id number]: Final reports with documentation of one or more dose reduction techniques (e.g., Automated exposure control, adjustment of the mA and/or kV according to patient size, use of iterative reconstruction technique) copyright 2010 [employer]- All Rights Reserved
[2019-01-30] MEDS ORDERED: CEFTRIAXONE INJ 1000 MG VIAL IV ONE (01:10)
[2019-01-30 01:32] LABS: INTERNATIONAL RATION (INR) 1.28; PROTHROMBIN TIME 16.6 SEC (11.4-15.4)
[2019-01-30] MEDS: LEVALBUTEROL HCL NEB 1.25 MG/3 ML AMPUL NEB SCH ×4 (01:43→20:47)
[2019-01-30 06:33] LABS: ABSOLUTE BASOPHILS # (AUTO) 0.1 10^3/uL (0.0-0.2); ABSOLUTE LYMPHOCYTES (AUTO) 0.6 10^3/uL (0.5-4.7); ABSOLUTE MONOCYTES (AUTO) 0.1 10^3/uL (0.1-1.4); ABSOLUTE NEUT (AUTO) 11.6 10^3/uL (1.7-8.2); BASOPHILS % (AUTO) 0.4 % (0-2); EOSINOPHILS % (AUTO) 0.1 % (0-6); HEMATOCRIT 22.6 % (36.0-47.0); LYMPHOCYTES % (AUTO) 5.1 % (13-45); MEAN CORPUSCULAR HEMOGLOBIN 26.5 pg (27.0-33.4); MEAN CORPUSCULAR HGB CONC 33.2 g/dL (32.0-36.0); MEAN CORPUSCULAR VOLUME 80 fl (80-97); MONOCYTES % (AUTO) 0.5 % (3-13); PLATELET COUNT 263 10^3/uL (150-450); RED BLOOD COUNT 2.83 10^6/uL (3.72-5.28); RED CELL DISTRIBUTION WIDTH 17.6 % (11.5-14.0); SEGMENTED NEUTROPHILS % (AUTO) 93.9 % (42-78); TOTAL CELLS COUNTED % (AUTO) 100 %; WHITE BLOOD COUNT 12.3 10^3/uL (4.0-10.5)
[2019-01-30] MEDS: FUROSEMIDE INJ/PF 20 MG/2 ML SDV IV SCH ×3 (06:54→22:56)
[2019-01-30 07:05] LABS: ALANINE AMINOTRANSFERASE 377 U/L (9-52); ALBUMIN 2.4 g/dL (3.5-5.0); ALKALINE PHOSPHATASE 40 U/L (38-126); ANION GAP 9 (5-19); ASPARTATE AMINO TRANSFERASE 570 U/L (14-36); BILIRUBIN,DIRECT 0.4 mg/dL (0.0-0.4); BILIRUBIN,TOTAL 0.4 mg/dL (0.2-1.3); BLOOD UREA NITROGEN 91 mg/dL (7-20); CALCIUM 8.3 mg/dL (8.4-10.2); CARBON DIOXIDE 22 mmol/L (22-30); CHLORIDE 105 mmol/L (98-107); CREATINE KINASE 1212 U/L (30-135); GLUCOSE 99 mg/dL (75-110); LIPASE 74.8 U/L (23-300); SODIUM 136.4 mmol/L (137-145); TOTAL PROTEIN 4.7 g/dL (6.3-8.2)
[2019-01-30 07:06] LABS: CREATINE KINASE MB 10.8 ng/mL (<4.55); TROPONIN I 0.04 ng/mL
[2019-01-30 07:07] LABS: HEMOGLOBIN 7.5 g/dL (12.0-15.5)
[2019-01-30 07:10] LABS: POTASSIUM 4.2 mmol/L (3.6-5.0)
[2019-01-30] MEDS ORDERED: INSULIN LISPRO 100 UNIT/ML 3 ML VIAL SUBCUT SCH (08:00)
[2019-01-30] MEDS ORDERED: IPRATROPIUM/ALBUTEROL 0.5-2.5 MG/3 ML AMPUL NEB SCH (08:00)
[2019-01-30] MEDS: CEFEPIME 1 GM/D5W RTU 1 GM/50 ML RTUPB IV SCH ×2 (09:43→22:54)
[2019-01-30] MEDS: FAMOTIDINE INJ/PF 20 MG/2 ML SDV IV SCH ×2 (09:43→22:55)
--- NOTE | 2019-01-30 10:11 | PDOC H&P ---
History of Present Illness Admission Date/PCP: 01/29/19 22:41 KEILY CHRISTIANSON MD Patient complains of: Altered mental status History of Present Illness: JESSY PARKER is a 78 year old female This is a 78-year-old female with a history of the type 2 diabetes history of the hypertension hyperlipidemia history of the chronic kidney disease Patient also history of adrenal insufficiency chronic steroid dependent history of underlying dementia history of the asthma and history of MRSA and multiple comorbidity several hospital admissions including the history of the heart failure anemia basically came to the last week in the emergency department with some shortness of the breath was all stable and according to the daughter patient suddenly got altered mental status not feeling well in mild respiratory distress and patient was brought to the emergency department In the emergency department patient was dehydrated initially looks to creatinine was go up to the 2.56 and potassium was high and BUN is high also Also noticed the patient's liver enzyme is very elevated from 45 last time to 1400 range Patient's chest x-ray shows the pulmonary edema Patient NT BNP was also elevated Patient was put on a BiPAP Patient's lactic acid was 1.7 with some elevated white count with chronic steroid Patient see outpatients Dr. Powers for chronic kidney disease and also outpatient cardiology and endocrinology At this point patients have a hepatorenal syndrome with the right-sided congestive heart failure with possible dehydration's pneumonia multiple etiology and decided to admit in the hospital for further evaluations Patient when I saw it pretty much not respond and the daughter on the bedside According to the daughter patients express herself is a DNR/DNI and patient does not want to do any dialysis Overall patient's prognosis is poor Past Medical History Cardiac Medical History: Reports: Atrial Fibrillation, Congestive Heart Failure, Coronary Artery Disease, Hyperlipidema, Hypertension Pulmonary Medical History: Reports: Asthma, Bronchitis, Pneumonia, Sleep Apnea Neurological Medical History: Denies: Migraine, Seizures Endocrine Medical History: Reports: Diabetes Mellitus Type 2 Renal/ Medical History: Denies: End Stage Renal Disease GI Medical History: Reports: Gastroesophageal Reflux Disease, Hiatal Hernia - Large, with intrathoracic stomach., Ulcerative Colitis Musculoskeltal Medical History: Reports: Arthritis Skin Medical History: Denies: Psoriasis Psychiatric Medical History: Reports: Depression Traumatic Medical History: Denies: Traumatic Brain Injury Hematology: Reports: Anemia Infectious Medical History: Reports: Methicillin-Resistant Staph Aureus Past Surgical History Past Surgical History: Reports: Appendectomy, Hysterectomy, Other - History of right hemicolectomy, questionable history of ulcerative colitis. Social History Lives with: Family Smoking Status: Former Smoker Frequency of Alcohol Use: None Hx Recreational Drug Use: No Drugs: None Hx Prescription Drug Abuse: No - Advance Directive Resuscitation Status: Do Not Resuscitate Family History Family History: CAD, Hyperlipidemia, Hypertension Parental Family History Reviewed: Yes Children Family History Reviewed: Yes Sibling(s) Family History Reviewed.: Yes Medication/Allergy Home Medications: Calcium Carbonate [Calcium] 600 mg PO DAILY 03/22/18 Cholecalciferol (Vitamin D3) [Vitamin D3 1000 Unit Tablet] 1,000 unit PO DAILY 03/22/18 Digoxin [Lanoxin 0.125 mg Tablet] 0.125 mg PO MOWEFR@1000 03/22/18 Dronedarone Hydrochloride [Multaq 400 mg Tablet] 400 mg PO BID 03/22/18 Ferrous Sulfate [Ferosul] 325 mg PO BID 03/22/18 Furosemide [Lasix] 40 mg PO BID 03/22/18 Gabapentin 800 mg PO Q8 03/22/18 Hum Insulin NPH/Reg Insulin Hm [Novolin 70-30 100 Unit/ml Vial] 0 unit SQ .SLIDING SCALE 03/22/18 Losartan Potassium 100 mg PO DAILY 03/22/18 Omeprazole 20 mg PO BID 03/22/18 Cyanocobalamin (Vitamin B-12) [Vitamin B-12 100 mcg Tablet] 1,000 mcg PO DAILY 03/23/18 Latanoprost [Xalatan 0.005% Oph Soln 2.5 ml] 1 drop OU QHS 03/23/18 Acetylcysteine [Mucomist 10% Neb 400 mg/4 mL Vial] 200 mg IH BID 03/25/18 Prednisone [Deltasone 20 mg Tablet] 20 mg PO BID MDD FILLED 01/27 FOR 5 DAY SUPPLY 03/25/18 Diltiazem HCl [Diltiazem 24Hr ER] 240 mg PO Q12 10/18/18 Multivit-Min36/Iron/Folic Acid [Geritol Complete Tablet] 1 each PO DAILY 10/18/18 Sulfamethoxazole/Trimethoprim [Bactrim 400-80 mg Tablet] 1 each PO MOWEFR 10/18/18 Buspirone HCl [Buspar 10 mg Tablet] 10 mg PO Q8 #90 tablet 10/27/18 Prednisone [Deltasone 20 mg Tablet] 20 mg PO DAILY 01/30/19 Allergies/Adverse Reactions: aspirin [Aspirin] Allergy (Verified 01/26/19 17:28) Hives colchicine Allergy (Verified 01/26/19 17:28) Hives iodine Allergy (Verified 01/26/19 17:28) Hives NSAIDS (Non-Steroidal Anti-Inflamma Allergy (Verified 01/26/19 17:28) Hives Penicillins Allergy (Verified 01/26/19 17:28) Hives shellfish derived Allergy (Verified 01/26/19 17:28) Hives Review of Systems ROS unobtainable: Due to mental status All systems: reviewed and no additional remarkable complaints except as stated Physical Exam Vital Signs: Temp Pulse Resp BP Pulse Ox 97.2 F 69 11 L 128/39 H 95 01/30/19 07:36 01/30/19 07:36 01/30/19 07:36 01/30/19 07:36 01/30/19 07:36 Intake & Output 01/29/19 01/30/19 01/31/19 06:59 06:59 06:59 Output Total 425 Balance -425 Weight 40.1 kg Physical Exam: Not response General appearance: PRESENT: mild distress Eye exam: PRESENT: PERRLA Mouth exam: PRESENT: neck supple Respiratory exam: PRESENT: decreased breath sounds Cardiovascular exam: PRESENT: +S1, +S2 GI/Abdominal exam: PRESENT: normal bowel sounds, soft Extremities exam: ABSENT: pedal edema Neurological exam: PRESENT: altered Skin exam: PRESENT: dry Results Laboratory Results: 01/30/19 05:17 01/30/19 05:17 01/29/19 01/29/19 01/29/19 18:16 18:16 18:16 WBC 17.4 H RBC 3.46 L Hgb 9.2 L Hct 28.4 L MCV 82 MCH 26.5 L MCHC 32.4 RDW 17.8 H Plt Count 376 Seg Neutrophils % Not Reportable Lymphocytes % Not Reportable Monocytes % Not Reportable Eosinophils % Not Reportable Basophils % Not Reportable Absolute Neutrophils Not Reportable Absolute Lymphocytes Not Reportable Absolute Monocytes Not Reportable Absolute Eosinophils Not Reportable Absolute Basophils Not Reportable VBG pH VBG pCO2 VBG HCO3 VBG Base Excess Sodium 132.5 L Potassium 5.6 H Chloride 103 Carbon Dioxide 17 L Anion Gap 13 BUN 94 H Creatinine 2.53 H Est GFR ( Amer) 22 L Est GFR (Non-Af Amer) 18 L Glucose 207 H Lactic Acid 1.7 Calcium 8.6 Magnesium Total Bilirubin 0.9 AST 1467 H ALT 529 H Alkaline Phosphatase 37 L Ammonia Total Protein 5.2 L Albumin 2.6 L Lipase TSH Urine Color Urine Appearance Urine pH Ur Specific Eliot Urine Protein Urine Glucose (UA) Urine Ketones Urine Blood Urine Nitrite Ur Leukocyte Esterase Urine WBC (Auto) 01/29/19 01/29/19 01/29/19 18:16 19:10 20:35 WBC RBC Hgb Hct MCV MCH MCHC RDW Plt Count Seg Neutrophils % Lymphocytes % Monocytes % Eosinophils % Basophils % Absolute Neutrophils Absolute Lymphocytes Absolute Monocytes Absolute Eosinophils Absolute Basophils VBG pH VBG pCO2 VBG HCO3 VBG Base Excess Sodium Potassium Chloride Carbon Dioxide Anion Gap BUN Creatinine Est GFR ( Amer) Est GFR (Non-Af Amer) Glucose Lactic Acid Calcium Magnesium Total Bilirubin AST ALT Alkaline Phosphatase Ammonia 10.2 Total Protein Albumin Lipase TSH 0.79 Urine Color YELLOW Urine Appearance SLIGHTLY-CLOUDY Urine pH 5.0 Ur Specific Eliot 1.016 Urine Protein NEGATIVE Urine Glucose (UA) NEGATIVE Urine Ketones NEGATIVE Urine Blood NEGATIVE Urine Nitrite NEGATIVE Ur Leukocyte Esterase NEGATIVE Urine WBC (Auto) 5 01/29/19 01/30/19 01/30/19 20:35 05:17 05:17 WBC 12.3 H RBC 2.83 L Hgb 7.5 L Hct 22.6 L MCV 80 MCH 26.5 L MCHC 33.2 RDW 17.6 H Plt Count 263 Seg Neutrophils % 93.9 H Lymphocytes % 5.1 L Monocytes % 0.5 L Eosinophils % 0.1 Basophils % 0.4 Absolute Neutrophils 11.6 H Absolute Lymphocytes 0.6 Absolute Monocytes 0.1 Absolute Eosinophils 0.0 Absolute Basophils 0.1 VBG pH 7.33 VBG pCO2 40.4 VBG HCO3 20.9 VBG Base Excess -4.6 Sodium 136.4 L Potassium 4.2 D Chloride 105 Carbon Dioxide 22 Anion Gap 9 BUN 91 H Creatinine 2.36 H Est GFR ( Amer) 24 L Est GFR (Non-Af Amer) 20 L Glucose 99 Lactic Acid Calcium 8.3 L Magnesium 2.3 Total Bilirubin 0.4 AST 570 H ALT 377 H Alkaline Phosphatase 40 Ammonia Total Protein 4.7 L Albumin 2.4 L Lipase 74.8 TSH Urine Color Urine Appearance Urine pH Ur Specific Eliot Urine Protein Urine Glucose (UA) Urine Ketones Urine Blood Urine Nitrite Ur Leukocyte Esterase Urine WBC (Auto) 01/29/19 01/29/19 01/30/19 18:16 18:16 01:00 Creatine Kinase CK-MB (CK-2) Troponin I 0.036 0.039 NT-Pro-B Natriuret Pep 3250 H 01/30/19 01/30/19 05:17 05:17 Creatine Kinase 1212 H CK-MB (CK-2) 10.80 H Troponin I 0.040 NT-Pro-B Natriuret Pep 2770 H Impressions: Head CT 01/29/19 00:00 IMPRESSION: Motion artifact. Minor atrophy and minor small vessel ischemic change TECHNICAL DOCUMENTATION: Quality ID # [id number]: Final reports with documentation of one or more dose reduction techniques (e.g., Automated exposure control, adjustment of the mA and/or kV according to patient size, use of iterative reconstruction technique) copyright 2010 [employer]- All Rights Reserved Chest X-Ray 01/29/19 18:28 IMPRESSION: Borderline cardiomegaly with pulmonary edema. Abdomen/Pelvis CT 01/29/19 19:40 IMPRESSION: 1. Partially visualized bilateral lower lobe infiltrates, suspicious for acute pneumonia. Based on distribution, please correlate with clinical history regarding possibility of aspiration pneumonia. 2. Large hiatal hernia as on prior exam (which increases risk for aspiration) 3. Severe chronic degenerative changes of the lumbar spine, with a new L3 compression fracture since prior exam. No acute fractures. 4. Right hip arthroplasty and other chronic findings as described. Abdomen Ultrasound 01/29/19 21:58 IMPRESSION: Fatty infiltrate of change to the liver. There is a vague cystic focus of the pancreas. This could reflect small pseudocyst versus adjacent fluid in bowel versus pancreatic cystadenoma. Malignancy felt unlikely. copyright 2010 [employer]- All Rights Reserved Assessment & Plan - Diagnosis (1) Acute kidney injury superimposed on chronic kidney disease Is this a current diagnosis for this admission?: Yes Plan: Will slowly give some IV fluid but again patients have a multiple comorbidity with the possible heart failure pulmonary edema not sure Patient CT abdomen pelvis did not show any acute renal issues Will be given IV Lasix sometimes it helps to improve the kidney function if is related to the right-sided heart failure Consult the nephrology (2) Altered mental status Qualifiers: Altered mental status type: stupor Qualified Code(s): R40.1 - Stupor Is this a current diagnosis for this admission?: Yes Plan: due to metabolic encephalopathy Patient CT of the head is negative for any acute finding (3) Congestive heart failure Qualifiers: Heart failure type: right-sided Heart failure chronicity: acute on chronic Qualified Code(s): I50.813 - Acute on chronic right heart failure Is this a current diagnosis for this admission?: Yes Plan: With pulmonary edema elevated NT BNP elevated liver enzyme worsening the kidney functions most likely patient have this congestive heart failure We will consult the cardiology start on IV Lasix (4) Respiratory distress Is this a current diagnosis for this admission?: Yes Plan: Due to the combination of underlying pneumonia with heart failure Continues to BiPAP (5) Transaminitis Is this a current diagnosis for this admission?: Yes Plan: Patient's liver enzyme was normal before patient CT scan of the abdomen pelvis was negative Patient is not stable enough to get the abdominal MRI Patient most likely related to the hepatic congestions Ultrasound is negative for any acute finding (6) Acute chronic obstructive pulmonary disease with respiratory failure Is this a current diagnosis for this admission?: Yes Plan: Continues respiratory treatments (7) Yanick disease Is this a current diagnosis for this admission?: Yes Plan: Start the patient on hydrocortisone IV (8) Anemia Qualifiers: Anemia type: other cause Is this a current diagnosis for this admission?: Yes Plan: Check the iron study No acute GI bleed Consider blood transfusions (9) Cardiomyopathy Qualifiers: Cardiomyopathy type: unspecified Is this a current diagnosis for this admission?: Yes Plan: Will order the echocardiogram was the cardiac evaluations done by the insurance examiner if needed (10) Metabolic encephalopathy Is this a current diagnosis for this admission?: Yes Plan: Continue IV fluid and IV antibiotics (11) Type 2 diabetes mellitus Qualifiers: Diabetes mellitus longterm insulin use: with longterm use Is this a current diagnosis for this admission?: Yes Plan: Is a sliding scale - Time Time Spent: 50 to 70 Minutes Medications reviewed and adjusted accordingly: Yes Anticipated discharge: Other Within: Other - Inpatient Certification Based on my medical assessment, after consideration of the patient's comorbidities, presenting symptoms, or acuity I expect that the services needed warrant INPATIENT care.: Yes I certify that my determination is in accordance with my understanding of Medicare's requirements for reasonable and necessary INPATIENT services [42 CFR 412.3e].: Yes Medical Necessity: Significant Comorbidiites Make Outpatient Treatment Too Risky, Need For IV Fluids, Need For Continuous Telemetry Monitoring, Need for Nebulizer Therapy and Monitoring of Response, Need for IV Antibiotics Post Hospital Care: D/C Certified Pediatric Nurse Practitioner Documentation - Plan Summary Plan Summary: Very extensive discussions with the daughter at the bedside regarding the patient's current conditions with the poor prognosis due to multiorgan failure Patients express herself before and the daughter expressed patient's DNR/DNI and do not want any dialysis Overall prognosis is poor
--- NOTE | 2019-01-30 12:14 | PDOC CONSULTATION ---
Consultation Consult Date: 01/30/19 Consult reason:: DIONNE on CKD 3 . History of Present Illness Admission Date/PCP: 01/29/19 22:41 KEILY CHRISTIANSON MD History of Present Illness: JESSY PARKER is a 78 year old female with a history of the type 2 diabetes history of the hypertension hyperlipidemia, chronic kidney disease -3, adrenal insufficiency from chronic steroid dependency, dementia, asthma Was admitted with progressive altered mental status. Daughter is at the bedside and was the historian as the mother is currently on BiPAP and not responding to questions. Prior to this according to the daughter even though she has underlying dementia she was able to decently look after herself including doing most of her ADLs. She is able to walk around the house with a walker. Evaluation in the ER reveals that the patient is probably has pneumonia with sepsis along with with multisystem organ failure including acute on CKD. Chest x-ray is overpenetrated and shows some mild cephalization.However she had a noncontrasted CT scan of the abdomen and pelvis which showed that she had bilateral patchy infiltrates in the lower lobes suggestive of acute pneumonia possibly aspiration, severe large hiatal hernia and severe degenerative spinal arthritis. The daughter understands the gravity of the situation and has made sure that her mother is a DNR and does not want any form of invasive or life prolonging measures including renal replacement therapies. Labs and medications were reviewed with the patient's daughter. Past Medical History Cardiac Medical History: Reports: Atrial Fibrillation, Coronary Artery Disease, Hyperlipidemia, Hypertension-primary Pulmonary Medical History: Reports: Asthma, Bronchitis, Pneumonia, Sleep Apnea Neurological Medical History: Denies: Migraine, Seizures Endocrine Medical History: Reports: Diabetes Mellitus Type 2 Renal/ Medical History: Reports: Chronic Kidney Disease Stage III Denies: End Stage Renal Disease GI Medical History: Reports: Gastroesophageal Reflux Disease, Hiatal Hernia - Large, with intrathoracic stomach., Ulcerative Colitis Musculoskeltal Medical History: Reports: Arthritis Skin Medical History: Denies: Psoriasis Psychiatric Medical History: Reports: Depression Traumatic Medical History: Denies: Traumatic Brain Injury Infectious Medical History: Reports: Methicillin-resist Staph Aureus Past Surgical History Past Surgical History: Reports: Appendectomy, Hysterectomy, Other - History of right hemicolectomy, questionable history of ulcerative colitis. Social History Lives with: Family Smoking Status: Former Smoker Frequency of Alcohol Use: None Hx Recreational Drug Use: No Drugs: None Hx Prescription Drug Abuse: No - Advance Directive Resuscitation Status: Do Not Resuscitate Family History Parental Family History Reviewed: No Children Family History Reviewed: No Sibling(s) Family History Reviewed.: No Medication/Allergy Home Medications: Cholecalciferol (Vitamin D3) [Vitamin D3 1000 Unit Tablet] 2,000 unit PO DAILY 03/22/18 Digoxin [Lanoxin 0.125 mg Tablet] 0.125 mg PO MOWEFR@1000 03/22/18 Dronedarone Hydrochloride [Multaq 400 mg Tablet] 400 mg PO BID 03/22/18 Ferrous Sulfate [Ferosul] 325 mg PO BID 03/22/18 Furosemide [Lasix] 40 mg PO MOTUWETHFR@1200 03/22/18 Gabapentin 800 mg PO Q8 03/22/18 Hum Insulin NPH/Reg Insulin Hm [Novolin 70-30 100 Unit/ml Vial] 0 unit SQ .SLIDING SCALE 03/22/18 Losartan Potassium 100 mg PO DAILY 03/22/18 Omeprazole 20 mg PO BID 03/22/18 Cyanocobalamin (Vitamin B-12) [Vitamin B-12 100 mcg Tablet] 1,000 mcg PO DAILY 03/23/18 Latanoprost [Xalatan 0.005% Oph Soln 2.5 ml] 1 drop OU QHS 03/23/18 Acetylcysteine [Mucomist 10% Neb 400 mg/4 mL Vial] 200 mg NEB RTBID 03/25/18 Prednisone [Deltasone 20 mg Tablet] 20 mg PO BID MDD FILLED 01/27 FOR 5 DAY SUPPLY 03/25/18 Diltiazem HCl [Diltiazem 24Hr ER] 240 mg PO Q12 10/18/18 Sulfamethoxazole/Trimethoprim [Bactrim 400-80 mg Tablet] 1 each PO MOWEFR@1000 10/18/18 Buspirone HCl [Buspar 10 mg Tablet] 10 mg PO Q8 #90 tablet 10/27/18 Acetaminophen [Tylenol 325 mg Tablet] 650 mg PO BID 01/30/19 Budesonide [Pulmicort Neb 0.5 mg/2 ml Ampul] 0.5 mg NEB RTQ12 01/30/19 Calcium Carbonate/Vitamin D3 [Calcium 600 + Vit D Tablet] 1 tab PO DAILY 01/30/19 Fenofibrate Nanocrystallized [Tricor 145 mg Tablet] 145 mg PO DAILY 01/30/19 Ipratropium [place] [Atrovent 0.02% Neb 0.5 mg/2.5 ml Ampul] 0.5 mg NEB RTQ8HP PRN 01/30/19 Lactobacillus Acidophilus [Acidophilus Lactobacilli] 1 each PO BID 01/30/19 Levalbuterol HCl [Xopenex Neb 0.63 mg/3 ml Ampul] 0.63 mg NEB RTBID 01/30/19 Levalbuterol Tartrate [Levalbuterol Tartrate Hfa] 1 puff IH Q8HP PRN 01/30/19 Potassium Chloride [Klor-Con 10 Meq Capsule ER] 10 meq PO TUTH@1000 01/30/19 Prednisone [Deltasone 20 mg Tablet] 20 mg PO DAILY 01/30/19 Allergies/Adverse Reactions: aspirin [Aspirin] Allergy (Verified 01/26/19 17:28) Hives colchicine Allergy (Verified 01/26/19 17:28) Hives iodine Allergy (Verified 01/26/19 17:28) Hives NSAIDS (Non-Steroidal Anti-Inflamma Allergy (Verified 01/26/19 17:28) Hives Penicillins Allergy (Verified 01/26/19 17:28) Hives shellfish derived Allergy (Verified 01/26/19 17:28) Hives Review of Systems ROS unobtainable: Due to mental status Review of Systems: Discussions were done at length with the patient's daughter at the bedside as per my HPI. Gastrointestinal: PRESENT: heartburn. ABSENT: abdominal pain, diarrhea, dysphagia, hematemesis, hematochezia Integumentary: ABSENT: lesions, pruritus, rash Neurological: PRESENT: abnormal speech, confusion. ABSENT: abnormal gait, focal weakness, frequent falls Psychiatric: ABSENT: depression, hallucinations Hematologic/Lymphatic: ABSENT: easy bruising, lymphadenopathy Physical Exam Vital Signs: Temp Pulse Resp BP Pulse Ox 97.2 F 72 14 128/39 H 91 L 01/30/19 07:36 01/30/19 08:50 01/30/19 08:50 01/30/19 07:36 01/30/19 08:50 Intake & Output 01/29/19 01/30/19 01/31/19 06:59 06:59 06:59 Intake Total 50 Output Total 425 Balance -425 50 Weight 40.1 kg General appearance: PRESENT: no acute distress - She is currently on a BiPAP. She is not responding to questions. She looks very fragile and moribund. Eye exam: PRESENT: EOMI, PERRLA Mouth exam: PRESENT: moist, neck supple Neck exam: ABSENT: lymphadenopathy, meningismus, tenderness, thyromegaly, tracheal deviation Respiratory exam: PRESENT: clear to auscultation koko, decreased breath sounds. ABSENT: crackles Cardiovascular exam: PRESENT: +S1, +S2 GI/Abdominal exam: PRESENT: normal bowel sounds, soft. ABSENT: organomegaly, tenderness Extremities exam: PRESENT: pedal edema Neurological exam: PRESENT: altered Skin exam: ABSENT: cyanosis, mottled, rash Results Laboratory Results: 01/30/19 05:17 01/30/19 05:17 01/29/19 01/29/19 01/29/19 18:16 18:16 18:16 WBC 17.4 H RBC 3.46 L Hgb 9.2 L Hct 28.4 L MCV 82 MCH 26.5 L MCHC 32.4 RDW 17.8 H Plt Count 376 Seg Neutrophils % Not Reportable Lymphocytes % Not Reportable Monocytes % Not Reportable Eosinophils % Not Reportable Basophils % Not Reportable Absolute Neutrophils Not Reportable Absolute Lymphocytes Not Reportable Absolute Monocytes Not Reportable Absolute Eosinophils Not Reportable Absolute Basophils Not Reportable VBG pH VBG pCO2 VBG HCO3 VBG Base Excess Sodium 132.5 L Potassium 5.6 H Chloride 103 Carbon Dioxide 17 L Anion Gap 13 BUN 94 H Creatinine 2.53 H Est GFR ( Amer) 22 L Est GFR (Non-Af Amer) 18 L Glucose 207 H Lactic Acid 1.7 Calcium 8.6 Magnesium Total Bilirubin 0.9 AST 1467 H ALT 529 H Alkaline Phosphatase 37 L Ammonia Total Protein 5.2 L Albumin 2.6 L Lipase TSH Urine Color Urine Appearance Urine pH Ur Specific [place] Urine Protein Urine Glucose (UA) Urine Ketones Urine Blood Urine Nitrite Ur Leukocyte Esterase Urine WBC (Auto) 01/29/19 01/29/19 01/29/19 18:16 19:10 20:35 WBC RBC Hgb Hct MCV MCH MCHC RDW Plt Count Seg Neutrophils % Lymphocytes % Monocytes % Eosinophils % Basophils % Absolute Neutrophils Absolute Lymphocytes Absolute Monocytes Absolute Eosinophils Absolute Basophils VBG pH VBG pCO2 VBG HCO3 VBG Base Excess Sodium Potassium Chloride Carbon Dioxide Anion Gap BUN Creatinine Est GFR ( Amer) Est GFR (Non-Af Amer) Glucose Lactic Acid Calcium Magnesium Total Bilirubin AST ALT Alkaline Phosphatase Ammonia 10.2 Total Protein Albumin Lipase TSH 0.79 Urine Color YELLOW Urine Appearance SLIGHTLY-CLOUDY Urine pH 5.0 Ur Specific [place] 1.016 Urine Protein NEGATIVE Urine Glucose (UA) NEGATIVE Urine Ketones NEGATIVE Urine Blood NEGATIVE Urine Nitrite NEGATIVE Ur Leukocyte Esterase NEGATIVE Urine WBC (Auto) 5 01/29/19 01/30/19 01/30/19 20:35 05:17 05:17 WBC 12.3 H RBC 2.83 L Hgb 7.5 L Hct 22.6 L MCV 80 MCH 26.5 L MCHC 33.2 RDW 17.6 H Plt Count 263 Seg Neutrophils % 93.9 H Lymphocytes % 5.1 L Monocytes % 0.5 L Eosinophils % 0.1 Basophils % 0.4 Absolute Neutrophils 11.6 H Absolute Lymphocytes 0.6 Absolute Monocytes 0.1 Absolute Eosinophils 0.0 Absolute Basophils 0.1 VBG pH 7.33 VBG pCO2 40.4 VBG HCO3 20.9 VBG Base Excess -4.6 Sodium 136.4 L Potassium 4.2 D Chloride 105 Carbon Dioxide 22 Anion Gap 9 BUN 91 H Creatinine 2.36 H Est GFR ( Amer) 24 L Est GFR (Non-Af Amer) 20 L Glucose 99 Lactic Acid Calcium 8.3 L Magnesium 2.3 Total Bilirubin 0.4 AST 570 H ALT 377 H Alkaline Phosphatase 40 Ammonia Total Protein 4.7 L Albumin 2.4 L Lipase 74.8 TSH Urine Color Urine Appearance Urine pH Ur Specific [place] Urine Protein Urine Glucose (UA) Urine Ketones Urine Blood Urine Nitrite Ur Leukocyte Esterase Urine WBC (Auto) 01/29/19 01/29/19 01/30/19 18:16 18:16 01:00 Creatine Kinase CK-MB (CK-2) Troponin I 0.036 0.039 NT-Pro-B Natriuret Pep 3250 H 01/30/19 01/30/19 05:17 05:17 Creatine Kinase 1212 H CK-MB (CK-2) 10.80 H Troponin I 0.040 NT-Pro-B Natriuret Pep 2770 H Impressions: Head CT 01/29/19 00:00 IMPRESSION: Motion artifact. Minor atrophy and minor small vessel ischemic change TECHNICAL DOCUMENTATION: Quality ID # [id number]: Final reports with documentation of one or more dose reduction techniques (e.g., Automated exposure control, adjustment of the mA and/or kV according to patient size, use of iterative reconstruction technique) copyright 2010 [employer]- All Rights Reserved Chest X-Ray 01/29/19 18:28 IMPRESSION: Borderline cardiomegaly with pulmonary edema. Abdomen/Pelvis CT 01/29/19 19:40 IMPRESSION: 1. Partially visualized bilateral lower lobe infiltrates, suspicious for acute pneumonia. Based on distribution, please correlate with clinical history regarding possibility of aspiration pneumonia. 2. Large hiatal hernia as on prior exam (which increases risk for aspiration) 3. Severe chronic degenerative changes of the lumbar spine, with a new L3 compression fracture since prior exam. No acute fractures. 4. Right hip arthroplasty and other chronic findings as described. Abdomen Ultrasound 01/29/19 21:58 IMPRESSION: Fatty infiltrate of change to the liver. There is a vague cystic focus of the pancreas. This could reflect small pseudocyst versus adjacent fluid in bowel versus pancreatic cystadenoma. Malignancy felt unlikely. copyright 2010 [employer]- All Rights Reserved Assessment & Plan - Diagnosis (1) Acute kidney injury superimposed on chronic kidney disease Is this a current diagnosis for this admission?: Yes Plan: Cardiac AI from all ATN from sepsis. Nonoliguric. Continue present lines of management. Patient not a candidate for renal replacements as per her wishes and current conditions. Patient's daughter also expressed the same feeling. (2) Altered mental status Qualifiers: Altered mental status type: stupor Qualified Code(s): R40.1 - Stupor Is this a current diagnosis for this admission?: Yes Plan: Possibly from a sepsis and respiratory failure. Currently on BiPAP. 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 (4) Acute chronic obstructive pulmonary disease with respiratory failure Is this a current diagnosis for this admission?: Yes Plan: Currently on BiPAP. As per Dr. Christianson. (5) Addisons disease Plan: On stress dose of IV steroids. As per Dr. Christianson. (6) Atrial fibrillation with RVR Plan: Patient was on dronedarone. Unsure if abnormal LFTs were secondary to that or is this from multisystem organ failure. (7) CKD stage 3 due to type 1 diabetes mellitus Plan: Chronic and has seen us in our office in the past. (8) Sepsis Qualifiers: Sepsis type: sepsis due to unspecified organism Qualified Code(s): A41.9 - Sepsis, unspecified organism Plan: Currently on antibiotics. Cultures pending.History of multiple drug-resistant bacteria history including C. difficile in the past.
[2019-01-30] MEDS: HYDROCORTISONE SOD SUCCINATE INJ/PF 100 MG/2 ML SDV IV SCH ×2 (12:23→22:55)
[2019-01-30] MEDS: ACETYLCYSTEINE 10% NEB 400 MG/4 ML VIAL NEB SCH ×2 (14:20→20:47)
[2019-01-30] MEDS: LATANOPROST 0.005% OPH SOLN 2.5 ML OU SCH (22:56)
--- NOTE | 2019-01-30 23:10 | PDOC CONSULTATION ---
Consultation-Blank Consultation: CARDIOLOGY CONSULTATION by Dr. Pastora Meredith on 01/31/20
[2019-01-31] MEDS: LEVALBUTEROL HCL NEB 1.25 MG/3 ML AMPUL NEB SCH ×4 (01:45→20:43)
[2019-01-31] MEDS: HYDROCORTISONE SOD SUCCINATE INJ/PF 100 MG/2 ML SDV IV SCH ×3 (05:24→22:34)
[2019-01-31] MEDS: FUROSEMIDE INJ/PF 20 MG/2 ML SDV IV SCH ×3 (05:24→22:34)
[2019-01-31 05:40] LABS: HEMATOCRIT 28.7 % (36.0-47.0); HEMOGLOBIN 9.4 g/dL (12.0-15.5); MEAN CORPUSCULAR HEMOGLOBIN 26.2 pg (27.0-33.4); MEAN CORPUSCULAR HGB CONC 32.8 g/dL (32.0-36.0); MEAN CORPUSCULAR VOLUME 80 fl (80-97); PLATELET COUNT 339 10^3/uL (150-450); RED BLOOD COUNT 3.59 10^6/uL (3.72-5.28); RED CELL DISTRIBUTION WIDTH 17.9 % (11.5-14.0); WHITE BLOOD COUNT 15.9 10^3/uL (4.0-10.5)
[2019-01-31 06:03] LABS: ABSOLUTE LYMPHOCYTES# (MANUAL) 0.2 10^3/uL (0.5-4.7); ABSOLUTE MONOCYTES # (MANUAL) 0.6 10^3/uL (0.1-1.4); ABSOLUTE NEUTROPHILS# (MANUAL) 15.1 10^3/uL (1.7-8.2); BASOPHILS % (MANUAL) 0 % (0-2); EOSINOPHILS % (MANUAL) 0 % (0-6); LYMPHOCYTES % (MANUAL) 1 % (13-45); MONOCYTES % (MANUAL) 4 % (3-13); SEGMENTED NEUTROPHILS % (MAN) 95 % (42-78); TOTAL CELLS COUNTED 100
[2019-01-31 06:05] LABS: ANISOCYTOSIS 1+; BURR CELLS SLIGHT; HYPOCHROMASIA SLIGHT; OVALOCYTES 1+; POIKILOCYTOSIS 2+; TEAR DROP CELLS 1+; TOXIC GRANULATION SLIGHT
[2019-01-31 06:06] LABS: ALANINE AMINOTRANSFERASE 353 U/L (9-52); ALBUMIN 2.9 g/dL (3.5-5.0); ALKALINE PHOSPHATASE 70 U/L (38-126); ASPARTATE AMINO TRANSFERASE 286 U/L (14-36); BILIRUBIN,DIRECT 0.8 mg/dL (0.0-0.4); BILIRUBIN,TOTAL 0.8 mg/dL (0.2-1.3); LIPASE 71.2 U/L (23-300); PLATELET COMMENT ADEQUATE; TOTAL PROTEIN 5.3 g/dL (6.3-8.2)
[2019-01-31] MEDS: ACETYLCYSTEINE 10% NEB 400 MG/4 ML VIAL NEB SCH ×2 (08:39→20:42)
[2019-01-31] MEDS: FAMOTIDINE INJ/PF 20 MG/2 ML SDV IV SCH ×2 (10:31→22:34)
[2019-01-31] MEDS: CEFEPIME 1 GM/D5W RTU 1 GM/50 ML RTUPB IV SCH ×2 (10:32→22:34)
--- NOTE | 2019-01-31 11:51 | PDOC PROGRESS REPORT ---
Subjective Progress Note for:: 01/31/19 Subjective:: Patient is more awake and engage today as per daughter at bedside. She reported expressed pain but patient is currently not on any pain medication due to fear of addiction. No reported fever. PO intake remain poor. Reason For Visit: RENAL FAILURE, CONGESTIVE HEART FAILURE Physical Exam Vital Signs: Temp Pulse Resp BP Pulse Ox 97.8 F 102 H 16 157/58 H 99 01/31/19 07:45 01/31/19 08:40 01/31/19 08:40 01/31/19 07:45 01/31/19 08:40 Intake & Output 01/30/19 01/31/19 02/01/19 06:59 06:59 06:59 Intake Total 100 Output Total 425 3450 Balance -425 -3350 Weight 40.1 kg 43.7 kg General appearance: PRESENT: no acute distress Head exam: PRESENT: atraumatic, normocephalic Eye exam: PRESENT: conjunctiva pink. ABSENT: scleral icterus Respiratory exam: PRESENT: clear to auscultation koko, decreased breath sounds - at lung bases Cardiovascular exam: PRESENT: +S1, +S2, systolic murmur, tachycardia Murmur grade: 2 Vascular exam: ABSENT: pallor GI/Abdominal exam: PRESENT: normal bowel sounds, soft. ABSENT: distended, guarding, mass, organolmegaly, rebound, tenderness Extremities exam: ABSENT: pedal edema Musculoskeletal exam: PRESENT: deformity - related to multiple joints involv ement with arthritis Neurological exam: PRESENT: alert, awake Skin exam: PRESENT: dry, warm, other - multiple sores on extremities Results Laboratory Results: 01/31/19 05:02 01/30/19 05:17 01/31/19 01/31/19 05:02 05:02 WBC 15.9 H RBC 3.59 L Hgb 9.4 L Hct 28.7 L MCV 80 MCH 26.2 L MCHC 32.8 RDW 17.9 H Plt Count 339 Seg Neutrophils % Not Reportable Lymphocytes % Not Reportable Monocytes % Not Reportable Eosinophils % Not Reportable Basophils % Not Reportable Absolute Neutrophils Not Reportable Absolute Lymphocytes Not Reportable Absolute Monocytes Not Reportable Absolute Eosinophils Not Reportable Absolute Basophils Not Reportable Total Bilirubin 0.8 AST 286 H ALT 353 H Alkaline Phosphatase 70 Total Protein 5.3 L Albumin 2.9 L Lipase 71.2 01/29/19 01/29/19 01/30/19 18:16 18:16 01:00 Creatine Kinase CK-MB (CK-2) Troponin I 0.036 0.039 NT-Pro-B Natriuret Pep 3250 H 01/30/19 01/30/19 05:17 05:17 Creatine Kinase 1212 H CK-MB (CK-2) 10.80 H Troponin I 0.040 NT-Pro-B Natriuret Pep 2770 H Impressions: Head CT 01/29/19 00:00 IMPRESSION: Motion artifact. Minor atrophy and minor small vessel ischemic change TECHNICAL DOCUMENTATION: Quality ID # [id number]: Final reports with documentation of one or more dose reduction techniques (e.g., Automated exposure control, adjustment of the mA and/or kV according to patient size, use of iterative reconstruction technique) copyright 2011 [employer]- All Rights Reserved Chest X-Ray 01/29/19 18:28 IMPRESSION: Borderline cardiomegaly with pulmonary edema. Abdomen/Pelvis CT 01/29/19 19:40 IMPRESSION: 1. Partially visualized bilateral lower lobe infiltrates, suspicious for acute pneumonia. Based on distribution, please correlate with clinical history regarding possibility of aspiration pneumonia. 2. Large hiatal hernia as on prior exam (which increases risk for aspiration) 3. Severe chronic degenerative changes of the lumbar spine, with a new L3 compression fracture since prior exam. No acute fractures. 4. Right hip arthroplasty and other chronic findings as described. Abdomen Ultrasound 01/29/19 21:58 IMPRESSION: Fatty infiltrate of change to the liver. There is a vague cystic focus of the pancreas. This could reflect small pseudocyst versus adjacent fluid in bowel versus pancreatic cystadenoma. Malignancy felt unlikely. copyright 2011 [employer]- All Rights Reserved Assessment & Plan - Diagnosis (1) Altered mental status Qualifiers: Altered mental status type: stupor Qualified Code(s): R40.1 - Stupor Is this a current diagnosis for this admission?: Yes Plan: Patient altered level is improving. Continue to monitor and advance diet as tolerated. (2) Bilateral pneumonia Qualifiers: Pneumonia type: due to unspecified organism Lung location: lower lobe of lung Qualified Code(s): J18.1 - Lobar pneumonia, unspecified organism Is this a current diagnosis for this admission?: Yes Plan: Maintain on IV Cefepime coverage. (3) Acute chronic obstructive pulmonary disease with respiratory failure Is this a current diagnosis for this admission?: Yes Plan: Maintain on bronchodilators therapy. (4) Acute kidney injury superimposed on chronic kidney disease Is this a current diagnosis for this admission?: Yes Plan: Continue IV fluid support. (5) Addisons disease Is this a current diagnosis for this admission?: Yes Plan: Continue Solu Cortef replacement therapy. (6) Anemia of chronic disease Is this a current diagnosis for this admission?: Yes Plan: There is comparative improvement in her hemoglobin level. - Time Time Spent with patient: 25-34 minutes Medications reviewed and adjusted accordingly: Yes Anticipated discharge: SNF Within: Other - Inpatient Certification Based on my medical assessment, after consideration of the patient's comorbidities, presenting symptoms, or acuity I expect that the services needed warrant INPATIENT care.: Yes I certify that my determination is in accordance with my understanding of Medicare's requirements for reasonable and necessary INPATIENT services [42 CFR 412.3e].: Yes Medical Necessity: Significant Comorbidiites Make Outpatient Treatment Too Risky, Need Close Monitoring Due to Risk of Patient Decompensation, Need For IV Fluids, Need For Continuous Telemetry Monitoring, Need for IV Antibiotics, Risk of Complication if Not Cared For in Hospital, Risk of Diagnosis Which Will Require Inpatient Eval/Care/Monitoring Post Hospital Care: D/C or Transfer Summary - Plan Summary Plan Summary: Continue current medication management
[2019-01-31] MEDS: DILTIAZEM HCL/D5W 125 MG/125 ML RTUINJ IV PRN ×2 (13:05→22:38)
--- NOTE | 2019-01-31 22:05 | Progress Note ---
Provider Note Provider Note: CARDIOLOGY PROGRESS NOTE by Dr. Pastora Meredith on 01/31/2019. Note that the patient's daughter is at the bedside. SUBJECTIVE: Patient is very confused and obtunded and nonverbal. As per the nurse she is off the BiPAP, but occasionally opens her eyes. There is no meaningful conversation that can be engaged with the patient. She does appear to be slightly short of breath. The patient remains in sinus tachycardia, there is no recurrence of atrial fibrillation, which she had on admission. There is no ventricular arrhythmia seen on the monitor. PHYSICAL EXAMINATION: The patient appears to be a very frail build, chronically ill and cachectic and malnourished. Selected Entries 01/31/19 11:30 Temperature 97.4 F Temperature Axillary Source Pulse Rate 103 H Respiratory 15 Rate Blood Pressure 164/73 H Blood Pressure 103 Mean BP Location Right Arm BP Position Supine O2 Sat by Pulse 94 Oximetry Oxygen Flow 6.00 Rate Oxygen Delivery Nasal Cannula Method HEAD: Is atraumatic normocephalic. EYES: Pupils are equal round regular reactive to light. ENT is negative NECK: Is supple. There is no JVD. There is no accessory muscle respiration use. There is no lymphadenopathy. Carotids are equal there is no bruit. Trachea central. LUNGS: There is diminished air entry prolonged expiration. There is also scattered rhonchi. There is no wheezing or rales. On percussion there is hyperresonance. HEART: S1-S2 is heard S1 is of normal intensity. There is no S3 gallop. There is no S4 gallop. There is systolic murmur left sternal border and the apex there is no rub ABDOMEN: Is soft nontender there is no hepatosplenic megaly bowel sounds well heard. Extr emities: Femorals are diminished there is no femoral bruits leg pulses are diminished. There is no pedal edema. FIELD GEOLOGIST: The patient is very lethargic and does not respond to any questions. She moves all 4 extremities. PSYCHIATRIC: Not tested. Labs- All tests 24 hr 01/31/19 01/31/19 01/31/19 00:42 05:02 05:02 WBC 15.9 H RBC 3.59 L Hgb 9.4 L Hct 28.7 L MCV 80 MCH 26.2 L MCHC 32.8 RDW 17.9 H Plt Count 339 Total Counted 100 Seg Neutrophils % Not Reportable Seg Neuts % (Manual) 95 H Lymphocytes % Not Reportable Lymphocytes % (Manual) 1 L Monocytes % Not Reportable Monocytes % (Manual) 4 Eosinophils % Not Reportable Eosinophils % (Manual) 0 Basophils % Not Reportable Basophils % (Manual) 0 Absolute Neutrophils Not Reportable Abs Neuts (Manual) 15.1 H Absolute Lymphocytes Not Reportable Abs Lymphs (Manual) 0.2 L Absolute Monocytes Not Reportable Abs Monocytes (Manual) 0.6 Absolute Eosinophils Not Reportable Absolute Eos (Manual) 0.0 Absolute Basophils Not Reportable Abs Basophils (Manual) 0.0 Toxic Granulation SLIGHT Platelet Comment ADEQUATE Hypochromasia SLIGHT Poikilocytosis 2+ Anisocytosis 1+ Tear Drop Cells 1+ Ovalocytes 1+ Shannan Cells SLIGHT POC Glucose 157 H Total Bilirubin 0.8 Direct Bilirubin 0.8 H Neonat Total Bilirubin Not Reportable Neonat Direct Bilirubin Not Reportable Neonat Indirect Bili Not Reportable AST 286 H ALT 353 H Alkaline Phosphatase 70 Total Protein 5.3 L Albumin 2.9 L Lipase 71.2 01/31/19 01/31/19 01/31/19 07:42 11:33 17:37 WBC RBC Hgb Hct MCV MCH MCHC RDW Plt Count Total Counted Seg Neutrophils % Seg Neuts % (Manual) Lymphocytes % Lymphocytes % (Manual) Monocytes % Monocytes % (Manual) Eosinophils % Eosinophils % (Manual) Basophils % Basophils % (Manual) Absolute Neutrophils Abs Neuts (Manual) Absolute Lymphocytes Abs Lymphs (Manual) Absolute Monocytes Abs Monocytes (Manual) Absolute Eosinophils Absolute Eos (Manual) Absolute Basophils Abs Basophils (Manual) Toxic Granulation Platelet Comment Hypochromasia Poikilocytosis Anisocytosis Tear Drop Cells Ovalocytes Shannan Cells POC Glucose 210 H 269 H 267 H Total Bilirubin Direct Bilirubin Neonat Total Bilirubin Neonat Direct Bilirubin Neonat Indirect Bili AST ALT Alkaline Phosphatase Total Protein Albumin Lipase Head CT 01/29/19 00:00 IMPRESSION: Motion artifact. Minor atrophy and minor small vessel ischemic change TECHNICAL DOCUMENTATION: Quality ID # [id number]: Final reports with documentation of one or more dose reduction techniques (e.g., Automated exposure control, adjustment of the mA and/or kV according to patient size, use of iterative reconstruction technique) copyright 2011 [employer]- All Rights Reserved Chest X-Ray 01/29/19 18:28 IMPRESSION: Borderline cardiomegaly with pulmonary edema. Abdomen/Pelvis CT 01/29/19 19:40 IMPRESSION: 1. Partially visualized bilateral lower lobe infiltrates, suspicious for acute pneumonia. Based on distribution, please correlate with clinical history regarding possibility of aspiration pneumonia. 2. Large hiatal hernia as on prior exam (which increases risk for aspiration) 3. Severe chronic degenerative changes of the lumbar spine, with a new L3 compression fracture since prior exam. No acute fractures. 4. Right hip arthroplasty and other chronic findings as described. Abdomen Ultrasound 01/29/19 21:58 IMPRESSION: Fatty infiltrate of change to the liver. There is a vague cystic focus of the pancreas. This could reflect small pseudocyst versus adjacent fluid in bowel versus pancreatic cystadenoma. Malignancy felt unlikely. copyright 2010 [employer]- All Rights Reserved IMPRESSION/RECOMMENDATION: 1. On altered mental status: Due to metabolic encephalopathy secondary to sepsis and COPD. 2. Acute on chronic kidney disease. Nephrology on the case. 3. Acute exacerbation of COPD. Continue respiratory treatments 4. Sepsis: Continue antibiotics 5. CHF: Seems to resolved. Most likely secondary atrial fibrillation with rapid ventricular response. 6. Paroxysmal atrial fibrillation: At present the patient is sinus tachycardia. In view of the patient not able to take by mouth, we will start the patient on a Cardizem drip at 5 mg/h to make sure the patient does not go back into atrial fibrillation. 7. Coronary artery disease: No definite evidence of acute coronary syndrome. 8. Hypertension: Blood pressure well controlled 9. Diabetes mellitus: Monitor blood sugars and treat appropriately. 10 adrenal insufficiency: Continue steroid replacement. We will also treat the patient with mineralocorticoids. 11. Malnutrition and cachexia. 12. Dementia. Patient's prognosis very poor. Discussed with the patient's daughter. Would recommend making the patient comfort measures. The patient daughter is thinking about this. Note medical decision making is of moderate complexity from cardiac viewpoint. 40 minutes spent on this patient with more than 50% of time spent in direct patient care. The patient is a DNR. Her daughter is her surrogate healthcare decision maker, and power of employment attorney
[2019-01-31] MEDS: LATANOPROST 0.005% OPH SOLN 2.5 ML OU SCH (22:35)
[2019-02-01] MEDS: LEVALBUTEROL HCL NEB 1.25 MG/3 ML AMPUL NEB SCH ×3 (02:00→14:22)
[2019-02-01 06:12] LABS: HEMOGLOBIN 10.1 g/dL (12.0-15.5); MEAN CORPUSCULAR HEMOGLOBIN 26.1 pg (27.0-33.4); MEAN CORPUSCULAR HGB CONC 32.4 g/dL (32.0-36.0); MEAN CORPUSCULAR VOLUME 81 fl (80-97); PLATELET COUNT 412 10^3/uL (150-450); RED BLOOD COUNT 3.85 10^6/uL (3.72-5.28); RED CELL DISTRIBUTION WIDTH 17.4 % (11.5-14.0); WHITE BLOOD COUNT 13.3 10^3/uL (4.0-10.5)
[2019-02-01 06:24] LABS: ALANINE AMINOTRANSFERASE 311 U/L (9-52); ALBUMIN 2.9 g/dL (3.5-5.0); ALKALINE PHOSPHATASE 84 U/L (38-126); ASPARTATE AMINO TRANSFERASE 177 U/L (14-36); BILIRUBIN,DIRECT 0.8 mg/dL (0.0-0.4); BILIRUBIN,TOTAL 0.9 mg/dL (0.2-1.3); LIPASE 251.6 U/L (23-300); TOTAL PROTEIN 5.8 g/dL (6.3-8.2)
[2019-02-01 06:41] LABS: ABSOLUTE LYMPHOCYTES# (MANUAL) 0.7 10^3/uL (0.5-4.7); ABSOLUTE MONOCYTES # (MANUAL) 0.3 10^3/uL (0.1-1.4); ABSOLUTE NEUTROPHILS# (MANUAL) 12.4 10^3/uL (1.7-8.2); BASOPHILS % (MANUAL) 0 % (0-2); EOSINOPHILS % (MANUAL) 0 % (0-6); LYMPHOCYTES % (MANUAL) 5 % (13-45); MONOCYTES % (MANUAL) 2 % (3-13); NUCLEATED RED BLOOD CELLS 2 /100 WBC (0); SEGMENTED NEUTROPHILS % (MAN) 93 % (42-78); TOTAL CELLS COUNTED 100
[2019-02-01 06:42] LABS: PLATELET CLUMPS PRESENT
[2019-02-01 06:44] LABS: ANISOCYTOSIS 1+; HYPOCHROMASIA 1+; OVALOCYTES 1+; TARGET CELLS 1+; TEAR DROP CELLS SLIGHT
[2019-02-01] MEDS: HYDROCORTISONE SOD SUCCINATE INJ/PF 100 MG/2 ML SDV IV SCH ×2 (07:08→14:14)
[2019-02-01] MEDS: FUROSEMIDE INJ/PF 20 MG/2 ML SDV IV SCH ×2 (07:08→14:14)
[2019-02-01] MEDS: ACETYLCYSTEINE 10% NEB 400 MG/4 ML VIAL NEB SCH (08:53)
[2019-02-01] MEDS ORDERED: ACETAMINOPHEN 650 MG SUPP.RECT PR PRN (09:40)
[2019-02-01] MEDS ORDERED: MORPHINE SULFATE 10 MG/ML INJ IV PRN (09:41)
[2019-02-01] MEDS: FAMOTIDINE INJ/PF 20 MG/2 ML SDV IV SCH (10:10)
[2019-02-01] MEDS: CEFEPIME 1 GM/D5W RTU 1 GM/50 ML RTUPB IV SCH (10:11)
--- NOTE | 2019-02-01 11:58 | Progress Note ---
Provider Note Provider Note: CARDIOLOGY NOTE by Dr. Pastora Meredith on 02/01/2019. Note that the patient not meeting making any meaningful meaningful progress. She is still obtunded and unresponsive. Discussed with the patient's daughter and the patient sounds. They all agree that they would like comfort measures to be instituted. Discussed this with Dr. Lopez. Orders written for comfort measures. Hence will sign off.
[2019-02-01] MEDS: DILTIAZEM HCL/D5W 125 MG/125 ML RTUINJ IV PRN (12:18)
--- NOTE | 2019-02-01 15:12 | PDOC PROGRESS REPORT ---
Subjective Progress Note for:: 02/01/19 Subjective:: Patient's family decided to make patient comfort care today after extensive discussion with Dr. Jarrell. I further discussed with daughter at bedside and she will like to discontinue all medication except for comfort care measures. Patient remain on supplemental oxygen via nasal cannula. Reason For Visit: RENAL FAILURE, CONGESTIVE HEART FAILURE Physical Exam Vital Signs: Temp Pulse Resp BP Pulse Ox 97.3 F 98 20 152/58 H 99 02/01/19 07:35 02/01/19 08:45 02/01/19 08:45 02/01/19 07:35 02/01/19 08:45 Intake & Output 01/31/19 02/01/19 02/02/19 06:59 06:59 06:59 Intake Total 100 249 50 Output Total 3450 2350 Balance -3350 -2101 50 Weight 43.7 kg 40.8 kg 38.9 kg Physical Exam: General appearance: PRESENT: no acute distress Respiratory exam: PRESENT: clear to auscultation koko, decreased breath sounds - at lung bases Cardiovascular exam: PRESENT: +S1, +S2, systolic murmur, tachycardia Murmur grade: 2 GI/Abdominal exam: PRESENT: normal bowel sounds, soft, nontender. Extremities exam: ABSENT: pedal edema Neurological exam: PRESENT: Nonverbal t this time. Skin exam: PRESENT: dry, warm Murmur grade: 2 Results Laboratory Results: 02/01/19 05:36 01/30/19 05:17 02/01/19 02/01/19 05:36 05:36 WBC 13.3 H RBC 3.85 Hgb 10.1 L Hct 31.0 L MCV 81 MCH 26.1 L MCHC 32.4 RDW 17.4 H Plt Count 412 Seg Neutrophils % Not Reportable Lymphocytes % Not Reportable Monocytes % Not Reportable Eosinophils % Not Reportable Basophils % Not Reportable Absolute Neutrophils Not Reportable Absolute Lymphocytes Not Reportable Absolute Monocytes Not Reportable Absolute Eosinophils Not Reportable Absolute Basophils Not Reportable Total Bilirubin 0.9 AST 177 H ALT 311 H Alkaline Phosphatase 84 Total Protein 5.8 L Albumin 2.9 L Lipase 251.6 01/29/19 19:28 Blood Blood Culture - Final Mrsa (Meth Resis Staph Aureus) 01/29/19 18:16 Blood Blood Culture - Final Mrsa (Meth Resis Staph Aureus) 01/29/19 19:10 Catheterized Urine Urine Culture - Final NO GROWTH 2 DAYS 01/29/19 01/29/19 01/30/19 18:16 18:16 01:00 Creatine Kinase CK-MB (CK-2) Troponin I 0.036 0.039 NT-Pro-B Natriuret Pep 3250 H 01/30/19 01/30/19 05:17 05:17 Creatine Kinase 1212 H CK-MB (CK-2) 10.80 H Troponin I 0.040 NT-Pro-B Natriuret Pep 2770 H Impressions: Head CT 01/29/19 00:00 IMPRESSION: Motion artifact. Minor atrophy and minor small vessel ischemic change TECHNICAL DOCUMENTATION: Quality ID # [id number]: Final reports with documentation of one or more dose reduction techniques (e.g., Automated exposure control, adjustment of the mA and/or kV according to patient size, use of iterative reconstruction technique) copyright 2011 [employer]- All Rights Reserved Chest X-Ray 01/29/19 18:28 IMPRESSION: Borderline cardiomegaly with pulmonary edema. Abdomen/Pelvis CT 01/29/19 19:40 IMPRESSION: 1. Partially visualized bilateral lower lobe infiltrates, suspicious for acute pneumonia. Based on distribution, please correlate with clinical history regarding possibility of aspiration pneumonia. 2. Large hiatal hernia as on prior exam (which increases risk for aspiration) 3. Severe chronic degenerative changes of the lumbar spine, with a new L3 compression fracture since prior exam. No acute fractures. 4. Right hip arthroplasty and other chronic findings as described. Abdomen Ultrasound 01/29/19 21:58 IMPRESSION: Fatty infiltrate of change to the liver. There is a vague cystic focus of the pancreas. This could reflect small pseudocyst versus adjacent fluid in bowel versus pancreatic cystadenoma. Malignancy felt unlikely. copyright 2011 [employer]- All Rights Reserved Assessment & Plan - Diagnosis (1) Altered mental status Qualifiers: Altered mental status type: stupor Qualified Code(s): R40.1 - Stupor Is this a current diagnosis for this admission?: Yes (2) Bilateral pneumonia Qualifiers: Pneumonia type: due to unspecified organism Lung location: lower lobe of lung Qualified Code(s): J18.1 - Lobar pneumonia, unspecified organism Is this a current diagnosis for this admission?: Yes (3) Acute chronic obstructive pulmonary disease with respiratory failure Is this a current diagnosis for this admission?: Yes (4) Acute kidney injury superimposed on chronic kidney disease Is this a current diagnosis for this admission?: Yes (5) Addisons disease Is this a current diagnosis for this admission?: Yes (6) Anemia of chronic disease Is this a current diagnosis for this admission?: Yes - Time Time Spent with patient: 25-34 minutes Medications reviewed and adjusted accordingly: Yes Anticipated discharge: Hospice Within: Other - Inpatient Certification Based on my medical assessment, after consideration of the patient's comorbid ities, presenting symptoms, or acuity I expect that the services needed warrant INPATIENT care.: Yes I certify that my determination is in accordance with my understanding of Medicare's requirements for reasonable and necessary INPATIENT services [42 CFR 412.3e].: Yes Medical Necessity: Need for Pain Control Post Hospital Care: D/C Customer Development Representative Documentation - Plan Summary Plan Summary: D/C all medication except for comfort care.
[2019-02-01] MEDS ORDERED: LEVALBUTEROL HCL NEB 1.25 MG/3 ML AMPUL NEB PRN (15:14)
[2019-02-01] MEDS: MORPHINE SULFATE 10 MG/ML INJ IV PRN ×3 (16:23→22:30)
[2019-02-02] MEDS: MORPHINE SULFATE 10 MG/ML INJ IV PRN ×4 (00:34→06:42)
[2019-02-02 08:42] VITALS: BP 85/35
[2019-02-02] MEDS ORDERED: LORAZEPAM INJ 2 MG/1 ML VIAL ONE (09:07)
[2019-02-02] MEDS ORDERED: LORAZEPAM INJ 2 MG/1 ML VIAL IV PRN (09:18)
--- NOTE | 2019-02-02 14:43 | PDOC DISCHARGE SUMMARY ---
General - Admit/Disc Date/PCP Admission Date/Primary Care Provider: 01/29/19 22:41 KEILY CHRISTIANSON MD Discharge Date: 02/02/19 - Discharge Diagnosis (1) Acute kidney injury superimposed on chronic kidney disease Is this a current diagnosis for this admission?: Yes (2) Altered mental status Is this a current diagnosis for this admission?: Yes (3) Congestive heart failure Is this a current diagnosis for this admission?: Yes (4) Respiratory distress Is this a current diagnosis for this admission?: Yes (5) Transaminitis Is this a current diagnosis for this admission?: Yes (6) Acute chronic obstructive pulmonary disease with respiratory failure Is this a current diagnosis for this admission?: Yes (7) Yanick disease Is this a current diagnosis for this admission?: Yes (8) Anemia Is this a current diagnosis for this admission?: Yes (9) Cardiomyopathy Is this a current diagnosis for this admission?: Yes (10) Metabolic encephalopathy Is this a current diagnosis for this admission?: Yes (11) Type 2 diabetes mellitus Is this a current diagnosis for this admission?: Yes (12) MRSA (methicillin resistant Staphylococcus aureus) septicemia Is this a current diagnosis for this admission?: Yes - Additional Information Resuscitation Status: Do Not Resuscitate Home Medications: Cholecalciferol (Vitamin D3) [Vitamin D3 1000 Unit Tablet] 2,000 unit PO DAILY 03/22/18 Digoxin [Lanoxin 0.125 mg Tablet] 0.125 mg PO MOWEFR@1000 03/22/18 Dronedarone Hydrochloride [Multaq 400 mg Tablet] 400 mg PO BID 03/22/18 Ferrous Sulfate [Ferosul] 325 mg PO BID 03/22/18 Furosemide [Lasix] 40 mg PO MOTUWETHFR@1200 03/22/18 Gabapentin 800 mg PO Q8 03/22/18 Hum Insulin NPH/Reg Insulin Hm [Novolin 70-30 100 Unit/ml Vial] 0 unit SQ .SLIDING SCALE 03/22/18 Losartan Potassium 100 mg PO DAILY 03/22/18 Omeprazole 20 mg PO BID 03/22/18 Cyanocobalamin (Vitamin B-12) [Vitamin B-12 100 mcg Tablet] 1,000 mcg PO DAILY 03/23/18 Latanoprost [Xalatan 0.005% Oph Soln 2.5 ml] 1 drop OU QHS 03/23/18 Acetylcysteine [Mucomist 10% Neb 400 mg/4 mL Vial] 200 mg NEB RTBID 03/25/18 Prednisone [Deltasone 20 mg Tablet] 20 mg PO BID MDD FILLED 01/27 FOR 5 DAY SUPPLY 03/25/18 Diltiazem HCl [Diltiazem 24Hr ER] 240 mg PO Q12 10/18/18 Sulfamethoxazole/Trimethoprim [Bactrim 400-80 mg Tablet] 1 each PO MOWEFR@1000 10/18/18 Buspirone HCl [Buspar 10 mg Tablet] 10 mg PO Q8 #90 tablet 10/27/18 Acetaminophen [Tylenol 325 mg Tablet] 650 mg PO BID 01/30/19 Budesonide [Pulmicort Neb 0.5 mg/2 ml Ampul] 0.5 mg NEB RTQ12 01/30/19 Calcium Carbonate/Vitamin D3 [Calcium 600 + Vit D Tablet] 1 tab PO DAILY 01/12 07/02 Fenofibrate Nanocrystallized [Tricor 145 mg Tablet] 145 mg PO DAILY 01/30/19 Ipratropium [place] [Atrovent 0.02% Neb 0.5 mg/2.5 ml Ampul] 0.5 mg NEB RTQ8HP PRN 01/30/19 Lactobacillus Acidophilus [Acidophilus Lactobacilli] 1 each PO BID 01/30/19 Levalbuterol HCl [Xopenex Neb 0.63 mg/3 ml Ampul] 0.63 mg NEB RTBID 01/30/19 Levalbuterol Tartrate [Levalbuterol Tartrate Hfa] 1 puff IH Q8HP PRN 01/30/19 Potassium Chloride [Klor-Con 10 Meq Capsule ER] 10 meq PO TUTH@1000 01/30/19 Prednisone [Deltasone 20 mg Tablet] 20 mg PO DAILY 01/30/19 History of Present Illness History of Present Illness: JESSY PARKER is a 78 year old female This is a 78-year-old female with a history of the type 2 diabetes history of the hypertension hyperlipidemia history of the chronic kidney disease Patient also history of adrenal insufficiency chronic steroid dependent history of underlying dementia history of the asthma and history of MRSA and multiple comorbidity several hospital admissions including the history of the heart failure anemia basically came to the last week in the emergency department with some shortness of the breath was all stable and according to the daughter patient suddenly got altered mental status not feeling well in mild respiratory distress and patient was brought to the emergency department In the emergency department patient was dehydrated initially looks to creatinine was go up to the 2.56 and potassium was high and BUN is high also Also noticed the patient's liver enzyme is very elevated from 45 last time to 1400 range Patient's chest x-ray shows the pulmonary edema Patient NT BNP was also elevated Patient was put on a BiPAP Patient's lactic acid was 1.7 with some elevated white count with chronic steroid Patient see outpatients Dr. Powers for chronic kidney disease and also outpatient cardiology and endocrinology At this point patients have a hepatorenal syndrome with the right-sided congestive heart failure with possible dehydration's pneumonia multiple etiology and decided to admit in the hospital for further evaluations Patient when I saw it pretty much not respond and the daughter on the bedside According to the daughter patients express herself is a DNR/DNI and patient does not want to do any dialysis Overall patient's prognosis is poor Hospital Course Hospital Course: This is a 78-year-old female with the multiple comorbidity as above presented in the emergency department with the multiple issues with the multiorgan failure including the heart failure kidney failure and liver congestions and respiratory failure Patient also found MRSA septicemia and blood With the multiple comorbidity family do not want to go for any further aggressive treatments Patient initially treated with the broad-spectrum IV antibiotics Patient express herself before DNR/DNI do not want any dialysis and family wants to go with what her wishes and put on a comfort care Patient is on 02/02/19 Physical Exam Vital Signs: Temp Pulse Resp BP Pulse Ox 98.0 F 100 12 85/35 L 82 L 02/02/19 07:50 02/02/19 07:50 02/02/19 07:50 02/02/19 07:50 02/02/19 07:50 Intake & Output 02/01/19 02/02/19 02/03/19 06:59 06:59 06:59 Intake Total 249 77 Output Total 4410 4485 Balance -2101 -1193 Weight 40.8 kg 38.9 kg Murmur grade: 2 Results Laboratory Results: 02/01/19 05:36 01/30/19 05:17 01/29/19 01/29/19 01/30/19 18:16 18:16 01:00 Creatine Kinase CK-MB (CK-2) Troponin I 0.036 0.039 NT-Pro-B Natriuret Pep 3250 H 01/30/19 01/30/19 05:17 05:17 Creatine Kinase 1212 H CK-MB (CK-2) 10.80 H Troponin I 0.040 NT-Pro-B Natriuret Pep 2770 H Impressions: Head CT 01/29/19 00:00 IMPRESSION: Motion artifact. Minor atrophy and minor small vessel ischemic change TECHNICAL DOCUMENTATION: Quality ID # [id number]: Final reports with documentation of one or more dose reduction techniques (e.g., Automated exposure control, adjustment of the mA and/or kV according to patient size, use of iterative reconstruction technique) copyright 2011 [employer]- All Rights Reserved Chest X-Ray 01/29/19 18:28 IMPRESSION: Borderline cardiomegaly with pulmonary edema. Abdomen/Pelvis CT 01/29/19 19:40 IMPRESSION: 1. Partially visualized bilateral lower lobe infiltrates, suspicious for acute pneumonia. Based on distribution, please correlate with clinical history regarding possibility of aspiration pneumonia. 2. Large hiatal hernia as on prior exam (which increases risk for aspiration) 3. Severe chronic degenerative changes of the lumbar spine, with a new L3 compression fracture since prior exam. No acute fractures. 4. Right hip arthroplasty and other chronic findings as described. Abdomen Ultrasound 01/29/19 21:58 IMPRESSION: Fatty infiltrate of change to the liver. There is a vague cystic focus of the pancreas. This could reflect small pseudocyst versus adjacent fluid in bowel versus pancreatic cystadenoma. Malignancy felt unlikely. copyright 2011 [employer]- All Rights Reserved Qualifiers - * PATIENT BEING DISCHARGED WITH ANY OF THE FOLLOWING DIAGNOSIS: No VTE patient discharged on overlapping Therapy?: Yes Plan Time Spent: Greater than 30 Minutes - Patient was under comfort care and
--- NOTE | 2019-02-02 14:44 | Death Summary ---
Summary Time of :: 11:30 Resuscitation Status: Comfort Measures Only - Final Diagnosis (1) Acute kidney injury superimposed on chronic kidney disease Is this a current diagnosis for this admission?: Yes (2) Altered mental status Is this a current diagnosis for this admission?: Yes (3) Congestive heart failure Is this a current diagnosis for this admission?: Yes (4) Respiratory distress Is this a current diagnosis for this admission?: Yes (5) Transaminitis Is this a current diagnosis for this admission?: Yes (6) Acute chronic obstructive pulmonary disease with respiratory failure Is this a current diagnosis for this admission?: Yes (7) Yanick disease Is this a current diagnosis for this admission?: Yes (8) Anemia Is this a current diagnosis for this admission?: Yes (9) Cardiomyopathy Is this a current diagnosis for this admission?: Yes (10) Metabolic encephalopathy Is this a current diagnosis for this admission?: Yes (11) Type 2 diabetes mellitus Is this a current diagnosis for this admission?: Yes (12) MRSA (methicillin resistant Staphylococcus aureus) septicemia Is this a current diagnosis for this admission?: Yes Hospital Course:: This is a 78-year-old female admitting in the hospital with the MRSA septicemia multiorgan failures patient's DNR/DNI and family wants to comfort care Patient on 02/02/19
== END 2019-02-02 13:00 | DRG 871 ==
LOC: ER 17:54 → EH 22:41 → 3S 01-30 00:21
PROVIDERS: ADMIT Family Medicine; ATTEND Family Medicine
DX: A41.02 Sepsis due to Methicillin resistant Staphylococcus aureus (principal); G93.41 Metabolic encephalopathy; J18.1 Lobar pneumonia, unspecified organism; N17.9 Acute kidney failure, unspecified; E27.1 Primary adrenocortical insufficiency; I13.0 Hypertensive heart and chronic kidney disease with heart failure and stage 1 through stage 4 chronic kidney disease, or unspecified chronic kidney disease; E46 Unspecified protein-calorie malnutrition; Z68.1 Body mass index [BMI] 19.9 or less, adult; R65.20 Severe sepsis without septic shock; Z66 Do not resuscitate; E11.22 Type 2 diabetes mellitus with diabetic chronic kidney disease; N18.3 Chronic kidney disease, stage 3 (moderate); I50.813 Acute on chronic right heart failure; I48.91 Unspecified atrial fibrillation; D64.9 Anemia, unspecified; I25.10 Atherosclerotic heart disease of native coronary artery without angina pectoris; E78.00 Pure hypercholesterolemia, unspecified; K21.9 Gastro-esophageal reflux disease without esophagitis; N18.9 Chronic kidney disease, unspecified; R74.0 Nonspecific elevation of levels of transaminase and lactic acid dehydrogenase [LDH]; M19.90 Unspecified osteoarthritis, unspecified site; Z86.14 Personal history of Methicillin resistant Staphylococcus aureus infection; Z79.4 Long term (current) use of insulin; Z79.51 Long term (current) use of inhaled steroids; Z79.52 Long term (current) use of systemic steroids; Z79.899 Other long term (current) drug therapy
CPT/HCPCS: 36415; 51701; 51702; 70450; 71045; 74176; 76705; 80048; 80053; 80076; 81001; 82140; 82550; 82553; 82803; 82962; 83605; 83690; 83735; 83880; 84443; 84484; 85025; 85610; 85652; 85730; 86140; 87040; 87077; 87086; 87186; 87804; 93005; 93010; 93971; 94640; 94660; 96365; 96375; 99291; J0456; J0692; J0696; J1720; J1940; J2060; J2270; J2405; J3490; J7620; S0028